=== PATIENT | female | born 1940 | race Caucasian/White ===

== ENCOUNTER → 2017-09-28 07:00 | Outpatient (CLI) | payer MEDICARE, OTHER, SELFPAY ==
--- NOTE | 2017-09-28 07:05 | HPBI_ITS ---
MAMMOGRAPHY - BILATERAL SCREENING REASON FOR EXAM: Female, 77 years old. Routine annual screening examination. PERTINENT HISTORY: Non-contributory. TECHNIQUE: Digital bilateral breast sedrick (3D mammographic acquisition) in the CC and MLO projections. 2-D mediolateral oblique (MLO) and craniocaudad (CC) views of both breasts were obtained. CAD: Full Field Digital Mammography with Computer Added Detection was performed. COMPARISON: Comparison is made with prior study dated September 07, 2016 and August 27, 2015. FINDINGS: Breast Composition: The breasts are heterogeneously dense, which may obscure small masses. There are no dominant masses or suspicious calcifications. No other significant abnormalities are identified. There has been no significant change since the prior study. HPBI/SCREENING MAMM (CAD), BILAT IMPRESSION: Stable bilateral screening mammogram. Yearly follow-up mammogram recommended. (A) ASSESSMENT CATEGORY: BIRADS Category 1: Negative. A letter regarding these results will be sent to the patient by the facility within 30 days. Approximately 10% of breast cancers are not detected by mammography. A normal mammogram should not delay biopsy of a clinically suspicious abnormality. [id number] Electronically Signed: Quoc Martins MD at 8:55 EDT Tel [phone], Service support ,
== END ==
PROVIDERS: Family Provider Family Medicine; PCP Family Medicine; Visit Provider Family Medicine
DX: Z12.31 Encounter for screening mammogram for malignant neoplasm of breast (principal)
CPT/HCPCS: 77063; 77067

== ENCOUNTER → 2018-02-27 07:28 | Outpatient (CLI) | payer MEDICARE, OTHER, SELFPAY ==
[2018-02-27 10:42] LABS: Absolute Lymphocyte Count 1.47 X10^3/ul (0.83-4.51); Absolute Neutrophil Count 2.1 X10^3/uL (2.0-7.7); Basophil# 0.03 X10^3/uL; Basophil% 0.7 % (0-1); Eosinophil# 0.31 X10^3/uL; Eosinophils% 7.1 % (0-5); Hematocrit 42.2 % (37-47); Hemoglobin 13.2 g/dl (12.0-15.0); Lymphocyte # 1.47 X10^3/ul (4.0); Lymphocyte % 33.6 % (19-41); Mean Corp Hgb Conc 31.3 g/gl (32-36); Mean Corpuscular Hgb 30.6 pg (27.0-32.0); Mean Corpuscular Volume 97.7 fL (81-99); Mean Platelet Vol. 10.7 fl (6.2-12.0); Monocyte# 0.44 X10^3/uL; Neutrophil # 2.12 X10^3/uL (2.7-7.7); Neutrophil % 48.4 % (47-70); Platelet Count 241 K/mm3 (150-450); RBC Distribution Width CV 12.8 % (11.6-14.6); RBC Distribution Width SD 45.6 fl (35.1-43.9); Red Blood Count 4.32 M/mm3 (4.2-5.4); White Blood Count 4.4 K/mm3 (4.4-11.0)
[2018-02-27 10:46] LABS: AST(SGOT) 27 U/L (15-37); Alanine Aminotransfer ALT/SGPT 23 U/L (13-56); Albumin, Serum 3.5 g/dL (3.2-5.0); Alkaline Phosphatase 58 U/L (45-117); Anion Gap 12 (5-15); BUN 20 mg/dL (7-18); BUN/Creat Ratio 21.6 RATIO (10-20); Chloride 107 mmol/L (98-107); Cholesterol 186 mg/dL (200); Creatinine, Serum 0.93 mg/dL (0.55-1.02); EST Glomerular Filtration Rate 63 mL/min (>60); Est Glom Filt Rate - Afr Amer 76 mL/min (>60); Ferritin 69 ng/mL (8-252); Globulin 3.5 g/dL (2.2-4.2); Glucose 78 mg/dL (74-106); High Density Lipoprotein 70 mg/dL; Iron 99 ug/dL (50-170); Potassium 3.9 mmol/L (3.5-5.1); Sodium Level 144 mmol/L (136-145); Triglycerides 63 mg/dL; Very Low Density Lipoprotein 13 mg/dL (5-40)
[2018-02-27 10:48] LABS: POSITIVE COUNT NO; POSITIVE DIFFERENTIAL NO; POSITIVE MORPHOLOGY NO
[2018-02-28 08:35] LABS: Vitamin B12 747 pg/mL (211-911); Vitamin D,25 Hydroxy 38.3 ng/mL (29.95-100.01)
== END ==
PROVIDERS: Family Provider Family Medicine; PCP Family Medicine; Visit Provider Family Medicine
DX: E78.5 Hyperlipidemia, unspecified (principal); M81.0 Age-related osteoporosis without current pathological fracture; R53.83 Other fatigue; E55.9 Vitamin D deficiency, unspecified; G25.81 Restless legs syndrome; D64.9 Anemia, unspecified
CPT/HCPCS: 36415; 80053; 80061; 82306; 82607; 82728; 83540; 85025

== ENCOUNTER → 2018-03-21 12:33 | Outpatient (CLI) | payer MEDICARE, OTHER, SELFPAY | PROVIDERS: Family Provider Family Medicine; PCP Family Medicine; Visit Provider Family Medicine | DX: M25.551 Pain in right hip (principal) | CPT/HCPCS: 73502 ==

== ENCOUNTER → 2018-09-14 15:54 | Outpatient (CLI) | payer MEDICARE, OTHER, SELFPAY ==
[2018-09-14 18:08] LABS: Ferritin 399 ng/mL (8-252)
[2018-09-14 18:48] LABS: Hemoglobin 10.7 g/dl (12.0-15.0); Mean Corp Hgb Conc 31.5 g/gl (32-36); Mean Corpuscular Hgb 30.9 pg (27.0-32.0); Mean Corpuscular Volume 98.3 fL (81-99); Platelet Count 435 K/mm3 (150-450); RBC Distribution Width CV 14.2 % (11.6-14.6); RBC Distribution Width SD 50.8 fl (35.1-43.9); Red Blood Count 3.46 M/mm3 (4.2-5.4); White Blood Count 10.5 K/mm3 (4.4-11.0)
[2018-09-14 18:49] LABS: Absolute Lymphocyte Count 2.07 X10^3/ul (0.83-4.51); Basophil# 0.04 X10^3/uL; Basophil% 0.4 % (0-1); Eosinophil# 0.18 X10^3/uL; Eosinophils% 1.7 % (0-5); Lymphocyte # 2.07 X10^3/ul (4.0); Lymphocyte % 19.8 % (19-41); Mean Platelet Vol. 9.5 fl (6.2-12.0); Monocyte# 1.18 X10^3/uL; Monocyte% 11.3 % (0-10); Neutrophil # 6.96 X10^3/uL (2.7-7.7); Neutrophil % 66.5 % (47-70); POSITIVE COUNT NO; POSITIVE DIFFERENTIAL NO; POSITIVE MORPHOLOGY NO
== END ==
PROVIDERS: Family Provider Family Medicine; PCP Family Medicine; Visit Provider Family Medicine
DX: D64.9 Anemia, unspecified (principal)
CPT/HCPCS: 36415; 82728; 85025

== ENCOUNTER → 2018-09-15 11:14 | Outpatient (CLI) | payer MEDICARE, OTHER, SELFPAY ==
[2018-09-15 12:31] LABS: Color, Urine Yellow (Yellow); Glucose, Dipstick Normal (Normal); Ketone-Dipstick 15 mg/dl (Negative); Leukocyte Esterase-Dipstick 500 /ul (Negative); Nitrite-Dipstick Positive (Negative); Occult Blood-Urine 150 /ul (Negative); Protein-Dipstick 30 mg/dl (Negative); Specific Gravity, Urine 1.025 (1.002-1.030); Urine Bilirubin Dipstick 1 mg/dL (Negative); Urine Clarity Clear (Clear); Urine Urobilinogen 4 mg/dl (Normal)
== END ==
PROVIDERS: Family Provider Family Medicine; PCP Family Medicine; Referring Provider Family Medicine; Visit Provider Family Medicine
DX: R50.9 Fever, unspecified (principal)
CPT/HCPCS: 81002; 87086; 87088

== ENCOUNTER → 2018-09-28 07:54 | Outpatient (CLI) | payer MEDICARE, OTHER, SELFPAY ==
[2018-09-28 09:05] LABS: Bacteria 0 SEEN /hpf (None Seen); Mucous, Urine 0 SEEN /hpf (<or=2+); Squamous Epithelial Cells - UA 0 SEEN /hpf (5-10)
[2018-09-28 13:24] LABS: Color, Urine Yellow (Yellow); Glucose, Dipstick Normal (Normal); Ketone-Dipstick Negative (Negative); Leukocyte Esterase-Dipstick 500 /ul (Negative); Nitrite-Dipstick Negative (Negative); Occult Blood-Urine 250 /ul (Negative); Protein-Dipstick Negative (Negative); Urine Bilirubin Dipstick Negative (Negative); Urine Clarity Clear (Clear); Urine Urobilinogen Normal (Normal)
[2018-09-28 13:34] LABS: Red Blood Cells-Urine 0-5 SEEN /hpf (0-5); White Blood Cells 5-10 SEEN /hpf (0-5)
== END ==
PROVIDERS: Family Provider Family Medicine; PCP Family Medicine; Visit Provider Family Medicine
DX: N39.0 Urinary tract infection, site not specified (principal)
CPT/HCPCS: 81001; 87086; 87088

== ENCOUNTER → 2019-08-02 09:49 | Outpatient (CLI) | payer MEDICARE, OTHER, SELFPAY ==
--- NOTE | 2019-08-02 09:55 | RAD_ITS ---
HISTORY: CHRONIC PAIN ADDITIONAL HISTORY: None provided. TECHNIQUE: Left knee 4 views Number of images including paperwork: 4 COMPARISON: 10/02/2012 FINDINGS: BONES: No acute fracture. JOINTS: No subluxation. Moderate to severe tricompartmental degenerative changes, increased compared to the prior study and most pronounced in the lateral compartment. Chondrocalcinosis. Moderate to large left knee joint effusion. SOFT TISSUES: No distinct foreign body. RAD/Knee 4 or More Views IMPRESSION: Degenerative changes without acute osseous abnormality. Left knee joint effusion. at 0028 Reported and signed by: Brenda Harris MD Electronically Signed: Brenda Harris MD at 0:27 EST Tel , Service support ,
--- NOTE | 2019-08-02 09:55 | RAD_ITS ---
HISTORY: CHRONIC PAIN ADDITIONAL HISTORY: None provided. TECHNIQUE: Right knee 4 views Number of images including paperwork: 4 COMPARISON: None FINDINGS: BONES: No acute fracture. JOINTS: No subluxation. Mild to moderate tricompartmental degenerative changes. Chondrocalcinosis. Small joint bodies. Small right knee joint effusion. SOFT TISSUES: No distinct foreign body. RAD/Knee 4 or More Views IMPRESSION: Degenerative changes without acute osseous abnormality. Small right knee joint effusion. at 0026 Reported and signed by: Brenda Harris MD Electronically Signed: Brenda Harris MD at 0:26 EST Tel , Service support ,
--- NOTE | 2019-08-02 09:55 | RAD_ITS ---
STUDY: X-RAY - PELVIS AND BILATERAL HIPS REASON FOR EXAM: Female, 79 years old. CHRONIC PAIN TECHNIQUE: AP view of the pelvis.? 2 views of the right hip, and 2 views of the left hip were obtained. COMPARISON: None. FINDINGS: There is a non-specific bowel gas pattern. Normal visualized soft tissue structures. Normal bilateral iliac wings, sacroiliac joints and visualized sacrum. Normal bilateral superior and inferior pubic rami. Normal pubic symphysis. Normal bilateral ischial tuberosities. There is diffuse concentric narrowing of both hip joints with mild spurring of the right femoral head. RAD/Hips B/L min 2 views w/ Pelvis IMPRESSION: Degenerative changes of both hips slightly worse on the right.. No evidence for acute hip or pelvic fracture Electronically Signed: Pepe Simental MD at 23:00 EST , Service support ,
== END ==
PROVIDERS: PCP Family Medicine; Referring Provider Family Medicine; Visit Provider Family Medicine
DX: M25.561 Pain in right knee (principal); M25.562 Pain in left knee; M25.551 Pain in right hip; M25.552 Pain in left hip
CPT/HCPCS: 73521; 73564

== ENCOUNTER → 2020-04-08 09:25 | Outpatient (CLI) | payer MEDICARE, OTHER, SELFPAY ==
--- NOTE | 2020-04-08 09:33 | BD_ITS ---
STUDY: DUAL ENERGY X-RAY ABSORPTIOMETRY / DXA REASON FOR EXAM: Female, 79 years old. 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 COMPARISON: Comparison is made with prior examination dated 12/06/2016. FINDINGS: Lumbar Spine (L1-L4): g/cm2 (0.926) / T-score (-2.3) / Z-score (-0.5) Findings are suggestive of osteopenia with a high fracture risk. Left Femur Total: g/cm2 (0.792) / T-score (-1.7) / Z-score (0.2) Left Femoral Neck: g/cm2 (0.846) / T-score (-1.4) / Z-score (0.7) Right Femur Total: g/cm2 (0.821) / T-score (-1.5) / Z-score (0.4) Right Femoral Neck: g/cm2 (0.857) / T-score (-1.3) / Z-score (0.7) The T-Scores on the most recent prior examination were: Lumbar Spine (L1-L4): There has been improvement of bone density since the previous examination. Left Femur Total: which represents a worsening of 3.3%. Right Femur Total: which represents an improvement of 2.4%. BD/Dexa Bone Density Study IMPRESSION: The patient is considered osteopenic as outlined below according to World [place] Organization (WHO) criteria with a high fracture risk. There has been improvement of bone density since the previous examination. Reference Information: The T-score is the number of standard deviations above or below the standard which is normal for young adults at their peak bone mineral density. The World Health Organization (WHO) interprets the T-scores as follows: Above -1 Normal bone density Between -1 and -2.5 Osteopenia Equal to / or below -2.5 Osteoporosis As a practical clinical guideline, osteopenia may be graded as follows: Mild -1 through -1.5 Moderate -1.6 through -2.0 Severe -2.1 through -2.4 The Z-score is the number of standard deviations above or below age-matched controls. A Z-score of less than -1.5 would be considered abnormal. References: 1. NIH Osteoporosis and Related Bone Diseases http://www.osteo.org 2. International Society for Clinical Densitometry http://www.iscd.org 3. National Osteoporosis Foundation http://www.nof.org Electronically Signed: Quoc Martins, at 14:50 EDT , Service support ,
== END ==
PROVIDERS: PCP Family Medicine; Referring Provider Family Medicine; Visit Provider Family Medicine
DX: M81.0 Age-related osteoporosis without current pathological fracture (principal)
CPT/HCPCS: 77080

== ENCOUNTER → 2020-04-17 09:53 | Outpatient (CLI) | payer MEDICARE, OTHER, SELFPAY ==
[2020-04-17 10:00] VITALS: BP 111/66; PULSE 71; RESP 16; TEMP 36.5; O2SAT 96
[2020-04-17] MEDS: DENOSUMAB 60 MG/ML SQ (10:08)
== END ==
PROVIDERS: PCP Family Medicine; Referring Provider Family Medicine; Visit Provider Family Medicine
DX: M81.0 Age-related osteoporosis without current pathological fracture (principal)
CPT/HCPCS: 96401; J0897

== ENCOUNTER → 2020-07-30 10:32 | Outpatient (CLI) | payer MEDICARE, OTHER, SELFPAY ==
--- NOTE | 2020-07-30 10:40 | RAD_ITS ---
STUDY: X-RAY CHEST REASON FOR EXAM: Female, 80 years old. cough x 2 years TECHNIQUE: PA and lateral COMPARISON: None. FINDINGS: Chronic interstitial and emphysematous changes are seen most pronounced in the lower lobes. There is a focal opacity in the right pulmonary apex possibly representing pulmonary nodule. There is no demonstrated pleural abnormality. Normal size heart. Normal mediastinum and kieran. Normal visualized pulmonary arteries. Normal visualized aortic arch and descending thoracic aorta. Dorsal spine demonstrates mild scoliosis and degenerative change.. Normal visualized ribs, and clavicles. There are degenerative changes of the shoulders. Postop change status post cervical fusion. There is no demonstrated abnormality of the visualized soft tissue structures of the upper abdomen. RAD/Chest PA and Lateral IMPRESSION: Chronic interstitial and emphysematous changes. Cannot exclude right upper lobe nodule. CT recommended for further evaluation Electronically Signed: Pepe Simental MD at 20:52 EST , Service support ,
== END ==
PROVIDERS: PCP Family Medicine; Visit Provider Otolaryngology
DX: R05 Cough (principal)
CPT/HCPCS: 71046

== ENCOUNTER → 2020-08-13 07:58 | Outpatient (CLI) | payer MEDICARE, OTHER, SELFPAY ==
[2020-08-03 14:24] VITALS: BMI 23.3
--- NOTE | 2020-08-13 08:00 | CT_ITS ---
STUDY: CT CHEST WITHOUT CONTRAST REASON FOR EXAM: Female, 80 years old. CHRONIC COUGH FOR YEARS, FOLLOW UP LUNG NODULE FOUND ON CHEST XRAY 07/30/20 RADIATION DOSAGE (If Supplied By Facility): CTDIvol = ( 6.59 ) mGy, DLP = ( 252.06 ) mGycm TECHNIQUE: Transaxial imaging was performed without the administration of intravenous contrast material. Multiplanar coronal and sagittal images were reformatted. Individualized dose optimization techniques were used for this CT. COMPARISON: None. FINDINGS: Emphysematous changes. There is a 2.5 cm x 1.4 cm heterogeneous irregular nodule in the anterior aspect of the right lung apex. This corresponds to the radiographic findings. Mild degree of increased markings at the lung bases as well as in the anterior aspect of the right middle lobe suggestive of scarring. There is no demonstrated pleural abnormality. There are calcifications of the coronary arteries. There are multiple small lymph nodes within the mediastinum, which are normal in size and morphology most compatible with reactive lymph hyperplasia. Normal hilar regions. Normal unenhanced pulmonary arteries. Normal aorta arch and descending thoracic aorta. There are multi-level degenerative changes of the thoracic spine. There is no demonstrated abnormality of the visualized upper abdomen. CT/Chest without Contrast IMPRESSION: 2.5 cm x 1.4 cm heterogeneous irregular nodular density in the anterior aspect of the right lung apex. Neoplastic process should be ruled. Electronically Signed: Quoc Martins MD at 9:14 EST , Service support ,
--- NOTE | 2020-08-13 12:42 | PFT ---
INTRODUCTION: The patient is a 80-year-old female that presents for pulmonary function studies secondary to a diagnosis of chronic cough. Respiratory therapy reports good patient effort. Bronchodilators were used during testing. INTERPRETATION: Forced expiration spirometry demonstrates no evidence of a large airways obstructive ventilatory defect. There was no significant response to aerosolized bronchodilators, based upon strict ATS criteria. Spirograms are of good quality and plateau normally. Body plethysmography was performed and reveals lung volumes to be within normal limits. Diffusing capacity by single breath CO is reduced to 67% of predicted. IMPRESSION: Isolated mild reduction in diffusing capacity. Normal spirometry and lung volumes.
== END ==
PROVIDERS: PCP Family Medicine; Visit Provider Internal Medicine Critical Care Medicine
DX: R05 Cough (principal)
CPT/HCPCS: 71250; 94060; 94726; 94729

== ENCOUNTER → 2020-08-18 13:16 | Outpatient (CLI) | payer MEDICARE, OTHER, SELFPAY ==
[2020-08-18 12:43] VITALS: BMI 23.3
[2020-08-18 13:58] LABS: Platelet Count 255 K/mm3 (150-450)
[2020-08-18 14:11] LABS: Partial Thromboplast Time 28.6 Seconds (24.1-36.2); Prothrombin Time (Protime)PT. 12.6 SECONDS (11.7-14.9)
[2020-08-18 21:45] LABS: Xtra Tube EP Lab EXTRA TUBE
== END ==
PROVIDERS: PCP Family Medicine; Referring Provider Nurse Practitioner Acute Care; Visit Provider Nurse Practitioner Acute Care
DX: M81.0 Age-related osteoporosis without current pathological fracture (principal); R91.8 Other nonspecific abnormal finding of lung field; R06.02 Shortness of breath
CPT/HCPCS: 36415; 85049; 85610; 85730

== ENCOUNTER → 2020-08-26 08:04 | Outpatient (CLI) | payer MEDICARE, OTHER, SELFPAY ==
[2020-08-18 12:43] VITALS: BMI 23.3
[2020-08-26] VITALS (13 sets, daily range): BP systolic 95–116; BP diastolic 65–82; PULSE 65–78; RESP 11–17; TEMP 36.9; O2SAT 95–99; BMI 23.3
--- NOTE | 2020-08-26 08:05 | CT_ITS ---
PROCEDURE: CT GUIDED CORE NEEDLE BIOPSY OF A right apical LUNG LESION INDICATION: Female, 80 years old. RIGHT LUNG BIOPSY PHYSICIAN: Dr. WON Mahoney CONSENT: Written informed consent was obtained having explained the risks, benefits and alternatives in detail with the patient who accepted the risks and agreed to proceed. Laboratory review and clinical assessment was performed. CONSCIOUS SEDATION PROTOCOL: The Drugs used were: 1 mg Versed, IV., and 50 mcg Fentanyl, IV. The sedation time was: 24minutes. Conscious sedation was started at 9:11 AM and terminated at 9:30 5A. The conscious sedation protocol was independently monitored. RADIATION DOSAGE (If Supplied By Facility): CTDIvol = ( 16.67 ) mGy, DLP = ( 538.68 ) mGycm Individualized dose optimization techniques were used for this CT. TECHNIQUE: The patient was placed in the supine position. A noncontrast CT was performed to localize the lesion in the right lung apex . The skin surface was prepped and draped in a sterile fashion. 1% lidocaine was used for local anesthesia. Using CT guidance, a 20-gauge coaxial biopsy device was advanced to the periphery of the lesion. A total of 3 core specimens were obtained. The specimens were placed in a formalin solution. A post procedure CT demonstrated no adverse sequelae or pneumothorax. The patient tolerated the procedure well without adverse event. A negative biopsy does not exclude malignancy. Further imaging or clinical followup based on patient condition and degree of clinical suspicion for malignancy. Suggest rebiopsy, if biopsy results do not match with clinical scenario. CT/Biopsy/Inj or Needle Placement IMPRESSION: 1. CT directed core needle biopsy of the right apical nodular lesion using CT image guidance with image documentation as described. Pathology results are pending. 2. Conscious Sedation protocol utilized with independent monitoring. Electronically Signed: Quoc Martins MD at 9:54 EST , Service support ,
--- NOTE | 2020-08-26 09:00 | RAD_ITS ---
STUDY: X-RAY CHEST REASON FOR EXAM: Female, 80 years old. IMMEDIATE POST LUNG BX, RT APEX. INSPR/EXPR VWS TECHNIQUE: AP inspiration and expiration views. COMPARISON: Comparison is made with prior examination dated 01/27/2021. FINDINGS: Immediate post right lung biopsy radiographs. No evidence of pneumothorax. RAD/Chest Insp/Exp 2 View IMPRESSION: No evidence of pneumothorax on the immediate post right lung biopsy radiographs. Electronically Signed: Quoc Martins MD at 14:43 EST , Service support ,
[2020-08-26] MEDS: fentaNYL 100 MCG/2 ML Ampul IV (09:10)
[2020-08-26] MEDS: Midazolam 2 MG/2 ML Syringe IV (09:11)
[2020-08-26] MEDS: 0.9% Saline Lock 10 ML Syringe IV (09:14)
--- NOTE | 2020-08-26 09:30 | ASPIGT_PTH ---
PATIENT: MARGIE FULTON LOC: CT U#:[id number] AGE/SX: 85/F ROOM: RE08/26/[address]: ZACKARY Valenzuela : 1940 BED: DIS: SPEC #: [id number] RECD: 08/26/20 10:00 STATUS: GRADY ALICE #: [id number] SUNNY: 08/26/20 09:[address]: Abril Connors NP DEPT: SURGICAL PATHOLOGY RECD BY: Laura Philip ENTERED: 08/26/20 13:33 SP TYPE: ASP RAD OTHR DR: Dr. Danielle Paige DO Tissues: Lung, NOS Procedures: FNA Specimen Adequacy Special Stain Group II Surgery Specimen Level IV Imprint (control) HEADER OPERATION: CT-guided right lung biopsy PRE-OP DIAGNOSIS: Right lung lesion TISSUE SUBMITTED: Right lung lesion MICROSCOPIC DIAGNOSIS Right lung lesion, CT-guided core biopsy: Negative for malignant cells. See comment. PONCE:kayleen 08/27/2020 COMMENT The specimen is evaluated at the time of biopsy by Dr. Harrington. Immediate Evaluation = Negative for malignant cells. Grossly, the specimen consists of scant minute fragment of tissue and did not survive processing. Smears are negative for malignant cells. Correlation with clinical, radiologic findings and appropriate follow up are necessary. Re-biopsy is suggested if clinically indicated. Case has been reviewed in consultation with Dr. Munoz who concurs with the above diagnosis. IDC:AM MICROSCOPIC DESCRIPTION Slides are reviewed. GROSS DESCRIPTION Received in fixative is one container labeled with the patient's name and designated right lung, CT-guided biopsy. The specimen consists of a minute fragment of light mayes soft tissue measuring 0.2 x <0.1 x <0.1. The specimen is submitted in its entirety in one cassette. / AM:kayleen 08/26/20 TC:5 CPT: 93107, 40704
--- NOTE | 2020-08-26 11:50 | RAD_ITS ---
STUDY: X-RAY CHEST REASON FOR EXAM: Female, 80 years old. 2 hours post biopsy, right apex TECHNIQUE: AP inspiration and expiration views. COMPARISON: Comparison is made with prior radiographs done earlier today. FINDINGS: No evidence of pneumothorax on the 2 hour post right lung biopsy. RAD/Chest Insp/Exp 2 View IMPRESSION: No evidence of pneumothorax on the delayed post right lung biopsy radiographs. Electronically Signed: Quoc Martins MD at 12:26 EST , Service support ,
== END ==
PROVIDERS: PCP Family Medicine; Referring Provider Nurse Practitioner Acute Care; Visit Provider Nurse Practitioner Acute Care
DX: R91.1 Solitary pulmonary nodule (principal)
CPT/HCPCS: 32408; 71046; 77012; 88172; 88305; 88313; 99155; 99156; J7040; A4216; C2613

== ENCOUNTER → 2020-08-27 10:53 | Outpatient (CLI) | payer MEDICARE, OTHER, SELFPAY ==
[2020-08-26 08:12] VITALS: BMI 23.3
[2020-08-27 12:42] LABS: Erythrocyte Sedimentation Rate 20 mm/hr (0-30)
[2020-08-27 12:53] LABS: Absolute Lymphocyte Count 1.28 X10^3/uL (0.83-4.51); Absolute Neutrophil Count 3.5 X10^3/uL (2.0-7.7); Basophil# 0.03 X10^3/uL; Basophil% 0.6 % (0-1); Eosinophil# 0.14 X10^3/uL; Eosinophils% 2.6 % (0-5); Hematocrit 39.4 % (37-47); Hemoglobin 12.7 g/dL (12.0-15.0); Lymphocyte # 1.28 X10^3/ul (4.0); Lymphocyte % 23.6 % (19-41); Mean Corp Hgb Conc 32.2 g/dL (32-36); Mean Corpuscular Hgb 30.9 pg (27.0-32.0); Mean Corpuscular Volume 95.9 fL (81-99); Mean Platelet Vol. 10.9 fl (6.2-12.0); Monocyte# 0.46 X10^3/uL; Monocyte% 8.5 % (0-10); NRBC Flagged by Analyzer 0 % (0-5); Neutrophil # 3.51 X10^3/uL (2.7-7.7); Neutrophil % 64.5 % (47-70); Platelet Count 227 K/mm3 (150-450); RBC Distribution Width CV 13.8 % (11.6-14.6); RBC Distribution Width SD 49.3 fl (35.1-43.9); Red Blood Count 4.11 M/mm3 (4.2-5.4); White Blood Count 5.4 K/mm3 (4.4-11.0)
[2020-08-27 13:13] LABS: AST(SGOT) 23 U/L (15-37); Alanine Aminotransfer ALT/SGPT 17 U/L (13-56); Albumin, Serum 3.4 g/dL (3.2-5.0); Alkaline Phosphatase 67 U/L (45-117); Anion Gap 6 (5-15); BUN 19 mg/dL (7-18); Calcium,Total 8.9 mg/dL (8.5-10.1); Chloride 108 mmol/L (98-107); Creatinine, Serum 0.68 mg/dL (0.55-1.02); EST Glomerular Filtration Rate 89 mL/min (>60); Est Glom Filt Rate - Afr Amer 108 mL/min (>60); Globulin 3.3 g/dL (2.2-4.2); Glucose 78 mg/dL (74-106); Potassium 4.3 mmol/L (3.5-5.1); Protein, Total 6.7 g/dL (6.4-8.2); Sodium Level 140 mmol/L (136-145)
== END ==
PROVIDERS: PCP Family Medicine; Visit Provider Family Medicine
DX: M25.50 Pain in unspecified joint (principal)
CPT/HCPCS: 36415; 80053; 85025; 85652; 86140

== ENCOUNTER → 2020-09-01 13:20 | Outpatient (CLI) | payer MEDICARE, OTHER, SELFPAY ==
[2020-08-26 08:12] VITALS: BMI 23.3
[2020-09-01 16:06] LABS: CRP 8.46 mg/L (0.0-3.0)
[2020-09-01 16:19] LABS: Erythrocyte Sedimentation Rate 15 mm/hr (0-30)
== END ==
PROVIDERS: PCP Family Medicine; Visit Provider Family Medicine
DX: M19.90 Unspecified osteoarthritis, unspecified site (principal); M25.50 Pain in unspecified joint
CPT/HCPCS: 36415; 85652; 86140

== ENCOUNTER → 2020-10-06 16:21 | Outpatient (CLI) | payer MEDICARE, OTHER, SELFPAY ==
[2020-08-26 08:12] VITALS: BMI 23.3
--- NOTE | 2020-10-06 16:30 | PET_ITS ---
EXAMINATION: FDG PET/CT INDICATIONS: A 80-year-old female with history of pulmonary nodularity. COMPARISON EXAMINATION: CT of the chest report dated 08/13/20 INDEX LESION SIZE SUV INTERPRETATION Right upper lung-right upper lobe 20.1-mm (frame 202) 2.9 Fulfills quantitative criteria for viable neoplasm TECHNIQUE: Following the intravenous administration of 13.89 mCi of F-18 deoxyglucose via the left antecubital fossa, multiplanar image acquisitions of the neck, chest, abdomen and pelvis to level of mid thigh, obtained at one hour post radiopharmaceutical administration contemporaneously interpreted with the current CT of the neck, chest, abdomen and pelvis to level of mid thigh, dated 10/06/[address] of the chest report dated 08/13/20 reveal: SERUM GLUCOSE LEVEL: 77 mg/dl. HEIGHT: 65 inches. WEIGHT: 140 lbs. FINDINGS: 1. Focal increased FDG concentration is observed in the right upper anterior lung-right upper lobe generating a calculated maximal standard uptake value of 2.9. The maximal axial diameter of the corresponding parenchymal density on review of CT of the chest dated 10/06/20 is 20.1-mm (AP). 2. Normal physiologic distribution of the radiopharmaceutical is apparent in the hepatic (2.6) and splenic parenchyma, both renal units, bladder and visualized intestinal tract. The visualized portion of the cerebral cortex demonstrate symmetric and preserved glucose metabolism. Diffuse gastrointestinal tract distribution of the radiopharmaceutical is defined. Facilitated tracer uptake is defined in the left ventricular myocardium commensurate with the [place]. Pertinent CT findings are as follows: CHEST: There is atherosclerotic calcification defined in the thoracic aorta without evidence of dilatation-aneurysm formation. Coronary arterial calcification is observed. Bilateral axillary soft tissue densities with fatty hilus are ametabolic. There are no additional parenchymal densities-nodules defined in the right and left hemithorax with discernible increased FDG concentration. ABDOMEN AND PELVIS: There is atherosclerotic calcification defined in the abdominal aorta without evidence of dilatation-aneurysm formation. Pelvic arterial calcification is observed. Bilateral inguinal soft tissue with fatty hilus is ametabolic. Calcification is noted in the region of the left adnexa without evidence of increased tracer uptake. Colonic diverticulosis is noted without evidence of diverticulitis. SKELETAL: Degenerative changes are noted in the cervical, thoracic and lumbar spine without evidence of increased radiopharmaceutical concentration. Orthopedic hardware placement is defined in the mid-lower cervical spine commensurate with spinal fusion operative intervention. There is diffuse demineralization identified throughout the axial skeletal structures. PET/PET/CT Tumor Base -Thigh Init IMPRESSION: 1. The increase in FDG uptake observed in the right upper anterior lung field-right upper lobe fulfills quantitative criteria for viable neoplasm. Histopathologic analysis is recommended. (Hardwick et al, Annals of Internal Medicine, 138:724, 2003). 2. No other quantitatively significant hypermetabolic abnormalities are noted. There is no definitive scintigraphic evidence of distant metastatic disease. Electronic Signature Geovany Pina D.O. Accurate Quantification of SUVs for this report are calculated using the exclusive [employer]? Technology.??Exclusive [place]. Patent [employer]? Technology (U.S. Patent No. [id number]). Electronically Signed: Geovany Pina DO at 21:59 EDT Tel , Service support ,
== END ==
PROVIDERS: PCP Family Medicine; Referring Provider Internal Medicine Critical Care Medicine; Visit Provider Internal Medicine Critical Care Medicine
DX: R91.1 Solitary pulmonary nodule (principal)
CPT/HCPCS: 78815; A9552

== ENCOUNTER → 2020-10-16 09:50 | Outpatient (CLI) | payer MEDICARE, OTHER, SELFPAY ==
[2020-10-09 13:39] VITALS: BMI 23.5
[2020-10-16 10:08] VITALS: BP 111/69; PULSE 68; RESP 16; TEMP 36.8; O2SAT 97; BMI 23.3
[2020-10-16] MEDS: DENOSUMAB 60 MG/ML SC (10:13)
== END ==
PROVIDERS: PCP Family Medicine; Referring Provider Family Medicine; Visit Provider Family Medicine
DX: M81.0 Age-related osteoporosis without current pathological fracture (principal)
CPT/HCPCS: 96372; J0897

== ENCOUNTER → 2021-03-17 14:49 | Outpatient (CLI) | payer MEDICARE, OTHER, SELFPAY | PROVIDERS: PCP Family Medicine; Visit Provider Family Medicine | DX: Z20.828 Contact with and (suspected) exposure to other viral communicable diseases (principal) | CPT/HCPCS: 87635; U0005; U0003 ==

== ENCOUNTER → 2021-04-23 09:46 | Outpatient (CLI) | payer MEDICARE, OTHER, SELFPAY ==
[2021-04-23 09:51] VITALS: BP 107/63; PULSE 71; RESP 16; TEMP 36.2; O2SAT 98; BMI 23.3
[2021-04-23] MEDS: DENOSUMAB 60 MG/ML SC (09:55)
== END ==
PROVIDERS: PCP Family Medicine; Referring Provider Family Medicine; Visit Provider Family Medicine
DX: M81.0 Age-related osteoporosis without current pathological fracture (principal)
CPT/HCPCS: 96372; J0897

== ENCOUNTER → 2021-05-07 12:49 | Outpatient (CLI) | payer MEDICARE, OTHER, SELFPAY ==
--- NOTE | 2021-05-07 12:55 | CT_ITS ---
STUDY: CT CHEST WITHOUT CONTRAST REASON FOR EXAM: Female, 80 years old. 6 month follow-up after lung resection RADIATION DOSAGE (If Supplied By Facility): CTDIvol = ( 6.38 ) mGy, DLP = ( 223.30 ) mGycm TECHNIQUE: Transaxial imaging was performed without the administration of intravenous contrast material. Individualized dose optimization techniques were used for this CT. COMPARISON: 06 October 2020 FINDINGS: Lungs are moderately emphysematous. There is right upper lobectomy. There is mild scarring along the major fissure and suture line extending to the hilum. There is no residual or recurrent mass or lesion. There is mild peripheral subpleural fibrosis. Central airways are patent. Pleural surfaces are intact. Mediastinal contents are normal. Corneae arteries are severely diseased. Adrenals are normal. Osseous structures are intact. There is cervical ACDF. CT/Chest without Contrast IMPRESSION: 1. Expected appearance after right upper lobectomy. 2. No residual/recurrent lung disease. 3. Emphysema and mild related fibrosis. 4. Severe coronary artery disease. Electronically Signed: Jay Velasco MD at 16:58 EDT Tel , Service support ,
== END ==
PROVIDERS: PCP Family Medicine; Referring Provider Nurse Practitioner Acute Care; Visit Provider Nurse Practitioner Acute Care
DX: R91.1 Solitary pulmonary nodule (principal)
CPT/HCPCS: 71250

== ENCOUNTER 2021-10-22 09:47 | Outpatient (CLI) | payer MEDICARE, OTHER, SELFPAY ==
[2021-10-22 09:54] VITALS: BP 110/66; PULSE 76; RESP 16; TEMP 35.7; O2SAT 98
[2021-10-22] MEDS: DENOSUMAB 60 MG/ML SC (09:56)
== END 2021-10-22 23:59 | disposition home or self-care (01) ==
LOC: MEDOUTP 09:48
PROVIDERS: PCP Family Medicine; Referring Provider Family Medicine; Visit Provider Family Medicine
DX: M81.0 Age-related osteoporosis without current pathological fracture (principal)
CPT/HCPCS: 96372; J0897

== ENCOUNTER → 2022-04-22 | Outpatient (CLI) | payer MEDICARE, OTHER, SELFPAY ==
[2022-04-22 10:02] VITALS: BP 113/68; PULSE 76; RESP 16; TEMP 36.6; O2SAT 96; BMI 23.3
[2022-04-22] MEDS: DENOSUMAB 60 MG/ML SC (10:14)
== END | disposition home or self-care (01) ==
LOC: MEDOUTP 09:56
PROVIDERS: PCP Family Medicine; Referring Provider Family Medicine; Visit Provider Family Medicine
DX: M81.0 Age-related osteoporosis without current pathological fracture (principal)
CPT/HCPCS: 96372; J0897

== ENCOUNTER → 2022-08-24 | Outpatient (CLI) | payer MEDICARE, OTHER, SELFPAY ==
[2022-08-24 14:55] LABS: Absolute Lymphocyte Count 1.59 X10^3/uL (0.83-4.51); Absolute Neutrophil Count 5.2 X10^3/uL (2.0-7.7); Basophil# 0.04 X10^3/uL; Basophil% 0.5 % (0-1); Eosinophil# 0.43 X10^3/uL; Eosinophils% 5.5 % (0-5); Hematocrit 39.7 % (37-47); Hemoglobin 12.3 g/dL (12.0-15.0); Lymphocyte # 1.59 X10^3/ul (0.83-4.51); Lymphocyte % 20.5 % (19-41); Mean Corpuscular Hgb 30.4 pg (27.0-32.0); Mean Platelet Vol. 10.3 fl (6.2-12.0); Monocyte# 0.52 X10^3/uL; Monocyte% 6.7 % (0-10); NRBC Flagged by Analyzer 0 % (0-5); Neutrophil # 5.15 X10^3/uL (2.7-7.7); Neutrophil % 66.5 % (47-70); Platelet Count 296 K/mm3 (150-450); RBC Distribution Width CV 13.7 % (11.6-14.6); RBC Distribution Width SD 49.8 fl (35.1-43.9); Red Blood Count 4.05 M/mm3 (4.2-5.4); White Blood Count 7.8 K/mm3 (4.4-11.0)
[2022-08-24 15:26] LABS: BNP,B-Type NATRIURETIC PEPTIDE 53.8 pg/mL (0-100)
[2022-08-24 15:33] LABS: ALB/GLOB Ratio 0.8 RATIO (0.9-2.4); AST(SGOT) 19 U/L (15-37); Alanine Aminotransfer ALT/SGPT 22 U/L (13-56); Albumin, Serum 3.3 g/dL (3.2-5.0); Alkaline Phosphatase 64 U/L (45-117); Anion Gap 6 (5-15); BUN 22 mg/dL (7-18); BUN/Creat Ratio 28.6 RATIO (10-20); Calcium,Total 8.6 mg/dL (8.5-10.1); Chloride 106 mmol/L (98-107); Creatinine, Serum 0.77 mg/dL (0.55-1.02); EST Glomerular Filtration Rate 77 mL/min (>60); Est Glom Filt Rate - Afr Amer 93 mL/min (>60); Globulin 4.1 g/dL (2.2-4.2); Glucose 97 mg/dL (74-106); Potassium 4.4 mmol/L (3.5-5.1); Protein, Total 7.4 g/dL (6.4-8.2); Sodium Level 139 mmol/L (136-145); Troponin-I HS 4 pg/mL (3.0-54.0)
--- NOTE | 2022-08-24 16:05 | RAD_ITS ---
INDICATION: COUGH EXAMINATION/TECHNIQUE: X-RAY - XR Chest 2 Views COMPARISON: 08/26/2020. FINDINGS: Slight increase in interstitial markings. Chronic interstitial lung changes. Emphysematous changes. Tortuous and calcified thoracic aorta. The heart is not enlarged. No pleural effusion or pneumothorax. Degenerative changes of the thoracic spine. RAD/Chest PA and Lateral IMPRESSION: Slight increase in interstitial markings may represent edema and/or infection. Chronic lung changes. Electronically Signed: Wei Ibarra MD at 17:59 EST ,
[2022-08-24 21:45] LABS: Xtra Tube EP Lab EXTRA TUBE
== END | disposition home or self-care (01) ==
PROVIDERS: PCP Family Medicine; Visit Provider Family Medicine
DX: R05.9 Cough, unspecified (principal); R06.00 Dyspnea, unspecified; R07.9 Chest pain, unspecified; Z85.118 Personal history of other malignant neoplasm of bronchus and lung
CPT/HCPCS: 36415; 71046; 80053; 83880; 84484; 85025; 86141

== ENCOUNTER → 2022-09-28 | Outpatient (CLI) | payer MEDICARE, OTHER, SELFPAY | END | disposition home or self-care (01) | PROVIDERS: PCP Family Medicine; Referring Provider Family Medicine; Visit Provider Family Medicine | DX: N39.0 Urinary tract infection, site not specified (principal) | CPT/HCPCS: 87077; 87086; 87088; 87186 ==

== ENCOUNTER → 2022-10-21 | Outpatient (CLI) | payer MEDICARE, OTHER, SELFPAY ==
[2022-10-21 10:46] VITALS: BP 112/68; PULSE 69; RESP 16; TEMP 36.3; O2SAT 96; BMI 23.3
[2022-10-21] MEDS: DENOSUMAB 60 MG/ML SC (10:48)
== END | disposition home or self-care (01) ==
LOC: MEDOUTP 10:40
PROVIDERS: PCP Family Medicine; Referring Provider Family Medicine; Visit Provider Family Medicine
DX: M81.0 Age-related osteoporosis without current pathological fracture (principal)
CPT/HCPCS: 96372; J0897

== ENCOUNTER → 2023-01-26 | Outpatient (CLI) | payer MEDICARE, OTHER, SELFPAY ==
[2023-01-26 12:33] LABS: Absolute Lymphocyte Count 1.25 X10^3/uL (0.83-4.51); Absolute Neutrophil Count 4.8 X10^3/uL (2.0-7.7); Basophil# 0.04 X10^3/uL; Basophil% 0.6 % (0-1); Eosinophil# 0.29 X10^3/uL; Eosinophils% 4.1 % (0-5); Hematocrit 35.8 % (37-47); Hemoglobin 11.4 g/dL (12.0-15.0); Lymphocyte # 1.25 X10^3/ul (0.83-4.51); Lymphocyte % 17.7 % (19-41); Mean Corp Hgb Conc 31.8 g/dL (32-36); Mean Corpuscular Hgb 32.1 pg (27.0-32.0); Mean Corpuscular Volume 100.8 fL (81-99); Mean Platelet Vol. 9.2 fl (6.2-12.0); Monocyte% 8.5 % (0-10); NRBC Flagged by Analyzer 0 % (0-5); Neutrophil # 4.84 X10^3/uL (2.7-7.7); Neutrophil % 68.7 % (47-70); Platelet Count 323 K/mm3 (150-450); RBC Distribution Width CV 14.1 % (11.6-14.6); RBC Distribution Width SD 53.2 fl (35.1-43.9); Red Blood Count 3.55 M/mm3 (4.2-5.4); White Blood Count 7.1 K/mm3 (4.4-11.0)
[2023-01-26 13:29] LABS: AST(SGOT) 44 U/L (15-37); Alanine Aminotransfer ALT/SGPT 44 U/L (13-56); Albumin, Serum 3.5 g/dL (3.2-5.0); Alkaline Phosphatase 55 U/L (45-117); Anion Gap 8 (5-15); BUN 23 mg/dL (7-18); BUN/Creat Ratio 21.3 RATIO (10-20); Chloride 106 mmol/L (98-107); Creatinine, Serum 1.08 mg/dL (0.55-1.02); EST Glomerular Filtration Rate 52 mL/min (>60); Est Glom Filt Rate - Afr Amer 63 mL/min (>60); Free T3 1.7 pg/mL (2.18-3.98); Globulin 3.4 g/dL (2.2-4.2); Glucose 87 mg/dL (74-106); Iron 60 ug/dL (50-170); Magnesium 2.2 mg/dL (1.6-2.6); Protein, Total 6.9 g/dL (6.4-8.2); Sodium Level 138 mmol/L (136-145); T4 Free Direct 1.09 ng/dL (0.76-1.46); Thyroid Stim Hormone (TSH) 2.53 uIU/mL (0.358-3.74)
[2023-01-26 13:37] LABS: Vitamin B12 586 pg/mL (211-911)
== END | disposition home or self-care (01) ==
LOC: BFHLAB 10:32
PROVIDERS: PCP Family Medicine; Referring Provider Family Medicine; Visit Provider Family Medicine
DX: M62.838 Other muscle spasm (principal); R53.83 Other fatigue
CPT/HCPCS: 36415; 80053; 82607; 83540; 83735; 84439; 84443; 84481; 85025

== ENCOUNTER → 2023-03-10 | Outpatient (CLI) | payer MEDICARE, OTHER, SELFPAY ==
[2023-03-10 12:01] LABS: Absolute Lymphocyte Count 1.37 X10^3/uL (0.83-4.51); Absolute Neutrophil Count 3.4 X10^3/uL (2.0-7.7); Basophil# 0.05 X10^3/uL; Basophil% 0.9 % (0-1); Eosinophil# 0.29 X10^3/uL; Eosinophils% 5.1 % (0-5); Hematocrit 36.6 % (37-47); Hemoglobin 11.5 g/dL (12.0-15.0); Lymphocyte # 1.37 X10^3/ul (0.83-4.51); Lymphocyte % 24.1 % (19-41); Mean Corp Hgb Conc 31.4 g/dL (32-36); Mean Corpuscular Hgb 31.5 pg (27.0-32.0); Mean Corpuscular Volume 100.3 fL (81-99); Mean Platelet Vol. 9.1 fl (6.2-12.0); Monocyte# 0.51 X10^3/uL; NRBC Flagged by Analyzer 0 % (0-5); Neutrophil # 3.44 X10^3/uL (2.7-7.7); Neutrophil % 60.4 % (47-70); Platelet Count 289 K/mm3 (150-450); RBC Distribution Width CV 13.6 % (11.6-14.6); RBC Distribution Width SD 50.1 fl (35.1-43.9); Red Blood Count 3.65 M/mm3 (4.2-5.4); White Blood Count 5.7 K/mm3 (4.4-11.0)
[2023-03-10 12:29] LABS: Vitamin B12 1747 pg/mL (211-911)
[2023-03-10 12:50] LABS: ALB/GLOB Ratio 1.2 RATIO (0.9-2.4); AST(SGOT) 49 U/L (15-37); Alanine Aminotransfer ALT/SGPT 46 U/L (13-56); Albumin, Serum 3.6 g/dL (3.2-5.0); Alkaline Phosphatase 58 U/L (45-117); Anion Gap 8 (5-15); BUN 21 mg/dL (7-18); Chloride 105 mmol/L (98-107); EST Glomerular Filtration Rate 57 mL/min (>60); Est Glom Filt Rate - Afr Amer 69 mL/min (>60); Free T3 1.7 pg/mL (2.18-3.98); Glucose 82 mg/dL (74-106); Potassium 4.2 mmol/L (3.5-5.1); Protein, Total 6.6 g/dL (6.4-8.2); Sodium Level 139 mmol/L (136-145); T4 Free Direct 1.14 ng/dL (0.76-1.46); Thyroid Stim Hormone (TSH) 2.78 uIU/mL (0.358-3.74)
== END | disposition home or self-care (01) ==
LOC: LAB 11:35
PROVIDERS: PCP Family Medicine; Referring Provider Family Medicine; Visit Provider Family Medicine
DX: E53.8 Deficiency of other specified B group vitamins (principal); R94.6 Abnormal results of thyroid function studies; Z51.81 Encounter for therapeutic drug level monitoring; M62.838 Other muscle spasm
CPT/HCPCS: 36415; 80053; 82607; 84439; 84443; 84481; 85025

== ENCOUNTER → 2023-04-19 | Outpatient (CLI) | payer MEDICARE, OTHER, SELFPAY ==
--- NOTE | 2023-04-19 15:18 | NEURO ---
NCS and/or EMG Patient Report Ordering Doctor: Danielle Paige DATE OF SERVICE: 04/19/23 Jyoti presents for electrodiagnostic testing of the lower limbs. She reports history of numbness and tingling in the anterior and lateral aspect of the lower legs bilaterally. Electrodiagnostic findings: Peroneal motor nerve demonstrates normal distal latency, amplitude and conduction velocity bilaterally. Normal tibial motor response bilaterally. Normal peroneal and tibial F?waves. H reflex is prolonged bilaterally. Absent left superficial peroneal response. Prolonged sural latency is noted bilaterally. Needle EMG testing was performed in the lower limbs. All muscles tested showed no evidence of denervation with normal motor unit action potentials. Electrodiagnostic impression: This is an abnormal study in the lower limbs 1. Electrodiagnostic findings suggestive of peripheral polyneuropathy, primarily affecting sensory nerves. Etiology of this condition is not known. 2. No electrodiagnostic evidence is noted for lumbosacral radiculopathy. Multi Select Codes Neurology Neurology Interp Codes: 30146-78 Musc test done w/n test comp (interp) (2) and 83805-66 Nrv cndj test 9-10 studies (interp)
== END | disposition home or self-care (01) ==
LOC: PSN 08:19
PROVIDERS: PCP Family Medicine; Referring Provider Family Medicine; Visit Provider Family Medicine
DX: M62.838 Other muscle spasm (principal); R20.2 Paresthesia of skin; M79.604 Pain in right leg; M79.605 Pain in left leg
CPT/HCPCS: 95886; 95911

== ENCOUNTER 2023-04-21 11:04 | Outpatient (CLI) | payer MEDICARE, OTHER, SELFPAY ==
[2023-04-21 11:09] VITALS: BP 113/70; PULSE 73; RESP 16; TEMP 36.6; O2SAT 98; BMI 23.3
[2023-04-21] MEDS: DENOSUMAB 60 MG/ML SC (11:14)
== END 2023-04-21 11:05 | disposition home or self-care (01) ==
PROVIDERS: PCP Family Medicine; Referring Provider Family Medicine; Visit Provider Family Medicine
DX: M81.0 Age-related osteoporosis without current pathological fracture (principal)
CPT/HCPCS: 96372; J0897

== ENCOUNTER → 2023-05-05 | Outpatient (CLI) | payer MEDICARE, OTHER, SELFPAY ==
[2023-05-05 12:23] LABS: Absolute Lymphocyte Count 1.55 X10^3/uL (0.83-4.51); Absolute Neutrophil Count 3.5 X10^3/uL (2.0-7.7); Basophil# 0.05 X10^3/uL; Basophil% 0.8 % (0-1); Eosinophil# 0.21 X10^3/uL; Eosinophils% 3.5 % (0-5); Hematocrit 38.1 % (37-47); Hemoglobin 11.9 g/dL (12.0-15.0); Lymphocyte # 1.55 X10^3/ul (0.83-4.51); Mean Corp Hgb Conc 31.2 g/dL (32-36); Mean Corpuscular Hgb 31.2 pg (27.0-32.0); Mean Corpuscular Volume 99.7 fL (81-99); Mean Platelet Vol. 9.5 fl (6.2-12.0); Monocyte# 0.62 X10^3/uL; Monocyte% 10.4 % (0-10); NRBC Flagged by Analyzer 0 % (0-5); Neutrophil # 3.49 X10^3/uL (2.7-7.7); Neutrophil % 58.6 % (47-70); Platelet Count 346 K/mm3 (150-450); RBC Distribution Width CV 14.1 % (11.6-14.6); RBC Distribution Width SD 51.8 fl (35.1-43.9); Red Blood Count 3.82 M/mm3 (4.2-5.4)
[2023-05-05 13:25] LABS: ALB/GLOB Ratio 0.9 RATIO (0.9-2.4); AST(SGOT) 49 U/L (15-37); Alanine Aminotransfer ALT/SGPT 38 U/L (13-56); Albumin, Serum 3.4 g/dL (3.2-5.0); Alkaline Phosphatase 56 U/L (45-117); Anion Gap 9 (5-15); BUN 26 mg/dL (7-18); BUN/Creat Ratio 23.6 RATIO (10-20); Calcium,Total 9.2 mg/dL (8.5-10.1); Chloride 108 mmol/L (98-107); EST Glomerular Filtration Rate 51 mL/min (>60); Est Glom Filt Rate - Afr Amer 61 mL/min (>60); Free T3 2.7 pg/mL (2.18-3.98); Globulin 3.7 g/dL (2.2-4.2); Glucose 73 mg/dL (74-106); Potassium 3.7 mmol/L (3.5-5.1); Protein, Total 7.1 g/dL (6.4-8.2); Sodium Level 140 mmol/L (136-145); T4 Free Direct 1.03 ng/dL (0.76-1.46); Thyroid Stim Hormone (TSH) 2.83 uIU/mL (0.358-3.74)
== END | disposition home or self-care (01) ==
LOC: BFHLAB 11:15
PROVIDERS: PCP Family Medicine; Visit Provider Family Medicine
DX: E03.9 Hypothyroidism, unspecified (principal); Z51.81 Encounter for therapeutic drug level monitoring
CPT/HCPCS: 36415; 80053; 84439; 84443; 84481; 85025

== ENCOUNTER → 2023-08-01 | Outpatient (CLI) | payer MEDICARE, OTHER, SELFPAY ==
[2023-08-01 08:15] VITALS: PULSE 106; PULSE 116; PULSE 125; PULSE 127; PULSE 137; PULSE 144; PULSE 150; O2SAT 93; O2SAT 94; O2SAT 96; O2SAT 97; O2SAT 99
--- OUTSIDE RECORDS SUMMARY | 2023-08-01 08:49 | XMS RPT_ITS | CCD ---
Author Name Unknown Address [address] [place] [address] Organization [facility] Care Team Providers Care Automotive Paint Technician Name Role Phone SURINDER JOSE CARLOS Attending Unavailable JOSE CARLOS CADENA Admitting Unavailable DANIELLE PAIGE Primary Care Unavailable NADEEM COATES Consulting Unavailable BLAZE SNYDER Consulting Unavailable Rocky Martin MD Unavailable Danielle Paige Primary Care Provider Medications Current Medications Medication Drug Class(es) Dates Sig (Normalized) Sig (Original) acetaminophen 500 mg oral tablet (2 sources) Start: 11-05-2020 End: 11-05-2020 take 1 dose by mouth three times daily 1,000 mg, Oral, EVERY 8 HOURS SCHEDULED (3 times per day), First dose on Mihaela 11/05/20 at 2200 Maximum dose of acetaminophen is 4000 mg from all sources in 24 hours. acetaminophen 325 mg / oxyCODONE hydrochloride 5 mg oral tablet (1 source) Opioid Agonist Start: 11-09-2020 End: 11-16-2020 oxyCODONE-acetamino phen (PERCOCET) 5-325 MG per tablet Indications: Nodule of apex of right lung Take 1 tablet by mouth every 6 hours as needed for Pain for up to 7 days. Intended supply: 7 days. Take lowest dose possible to manage pain 28 tablet 0 11/09/2020 11/16/2020 Active Albuterol (1 source) beta2-Adrenergic Agonist ALBUTEROL SULFATE IN Inhale into the lungs 0 Active albuterol 0.833 mg/ml / ipratropium bromide 0.167 mg/ml inhalation solution (2 sources) Anticholinergic, beta2-Adrenergic Agonist Start: 11-08-2020 ipratropium-albuter ol (DUONEB) nebulizer solution 1 ampule Completed/Discontinued Medications Medication Drug Class(es) Dates Sig (Normalized) Sig (Original) CALCIUM CARB-CHOLECALCIFERO L TABS (1 source) Start: 02-24-2015 CALCIUM 600 + D TABS take 2 tablets once daily CALCIUM CARB-CHOLECALCIFEROL TABS [id number] Catalina Wilkes CORK COMPOUNDER calcium chloride 0.0014 meq/ml / potassium chloride 0.004 meq/ml / sodium chloride 0.103 meq/ml / sodium lactate 0.028 meq/ml injectable solution (2 sources) Start: 11-05-2020 End: 11-06-2020 Intravenous, at 75 mL/hr, CONTINUOUS, Starting Mihaela 11/05/20 at 1930 Problems Active Problems Problem Classification Problem Date Documented Da te Episodic/Chronic Esophageal disorders (1 source) Gastro-esophageal reflux disease without esophagitis; Translations: [GERD WITHOUT ESOPHAGITIS] Onset: 06-17-2020 Chronic Genitourinary symptoms and ill-defined conditions (1 source) Urge incontinence; Translations: [URGE INCONTINENCE] Onset: 06-17-2020 Chronic Osteoarthritis (4 sources) Unspecified osteoarthritis, unspecified site; Translations: [Osteoarthrosis of the carpometacarpal joint of the thumb] Onset: 05-16-2018 10-02-2018 Chronic Other aftercare (1 source) 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 non-steroidal anti-inflammatories (NSAID); Translations: [FDC USE NSAID] Onset: 06-17-2020 Episodic Other aftercare (1 source) 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; Translations: [OTH FDC CURRENT DRUG THERAPY] Onset: 06-17-2020 Episodic Other connective tissue disease (1 source) Presence of right artificial knee joint; Translations: [PRESENCE RT ARTIFICIAL KNEE JOINT] Onset: 06-17-2020 Chronic Other connective tissue disease (1 source) Arthrodesis status; Translations: [ARTHRODESIS STATUS] Onset: 06-17-2020 Episodic Other diseases of bladder and urethra (2 sources) Overactive bladder; Translations: [OVERACTIVE BLADDER] Onset: 06-17-2020 Chronic Other gastrointestinal disorders (1 source) Full incontinence of feces; Translations: [FULL INCONTINENCE OF FECES] Onset: 06-17-2020 Episodic Other lower respiratory disease (2 sources) Nodule of lung; Translations: [Solitary pulmonary nodule] Onset: 11-05-2020 Episodic Spondylosis; intervertebral disc disorders; other back problems (1 source) Degeneration of cervical intervertebral disc; Translations: [Other cervical disc degeneration, unspecified cervical region] Onset: 04-09-2015 04-09-2015 Chronic Past or Other Problems Problem Classification Problem Date Documented Da te Episodic/Chronic Other connective tissue disease (1 source) Trochanteric bursitis; Translations: [Trochanteric bursitis, right hip] Onset: 05-16-2018 05-16-2018 Episodic Other connective tissue disease (1 source) H/O: arthrodesis; Translations: [Arthrodesis status] Onset: 04-09-2015 04-09-2015 Episodic Unclassified (1 source) Problem Results Test Name Value Interpretation Reference Range Facil ity Vital Signs Date Time Vital Sign Value Performing Clinician Facility 11-09-2020 04:56-0400 Body temperature 97.81 [degF] Ean Mckeon MD Work Phone: [facility] Work Phone: 11-09-2020 04:56-0400 Diastolic blood pressure 79 mm[Hg] Ean Mckeon MD Work Phone: [facility] Work Phone: 11-09-2020 04:56-0400 Heart rate 82 /min Ean Mckeon MD Work Phone: [facility] Work Phone: 11-09-2020 04:56-0400 Respiratory rate 12 /min Ean Mckeon MD Work Phone: [facility] Work Phone: 11-09-2020 04:56-0400 SaO2% (BldA) [Mass fraction] 96 % Ean Mckeon MD Work Phone: [facility] Work Phone: 11-09-2020 04:56-0400 Systolic blood pressure 110 mm[Hg] Ean Mckeon MD Work Phone: [facility] Work Phone: 11-06-2020 00:00-0400 Body mass index (BMI) [Ratio] 24.1 kg/m2 Ean Mckeon MD Work Phone: [facility] Work Phone: 11-06-2020 00:00-0400 Body weight 65.7 kg Ean Mckeon MD Work Phone: [facility] Work Phone: 11-05-2020 23:17-0400 Body height 165.1 cm Ean Mckeon MD Work Phone: [facility] Work Phone: NEGATED: Highlighted [id number] 11:46-0400 BMI (Body Mass Index) 24.29 kg/m2 Estrellita Anderson AT [facility] Work Phone: NEGATED: Highlighted [id number] 11:46-0400 Body weight 63.96 kg Estrellita Anderson AT [facility] Work Phone: NEGATED: Highlighted [id number] 11:46-0400 Body weight 64 kg Estrellita Anderson AT [facility] Work Phone: NEGATED: Highlighted [id number] 11:46-0400 BP Diastolic 70 mm[Hg] Estrellita Anderson AT [facility] Work Phone: NEGATED: Highlighted [id number] 11:46-0400 BP Systolic 102 mm[Hg] Estrellita Anderson AT [facility] Work Phone: NEGATED: Highlighted [id number] 11:46-0400 Height 162.56 cm Estrellita Anderson AT [facility] Work Phone: NEGATED: Highlighted [id number] 11:46-0400 Height 163 cm Estrellita Anderson AT [facility] Work Phone: NEGATED: Highlighted [id number] 11:46-0400 Pulse (Heart Rate) 80 /min Estrellita Anderson AT [facility] Work Phone: Encounters Encounter Date Encounter Type Care Provider Facility Start: 11-05-2020 End: 11-09-2020 Evaluation and management of inpatient Ean Mckeon MD Work Phone: [facility] Procedures Date Procedure Procedure Detail Performing Clinician Start: 11-09-2020 Echo tthrc r-t 2d w/wom-mode compl spec&colr d Brian Bonds MD Work Phone: Start: 11-09-2020 Radiologic exam ches t single view Rajni Hwang MD Work Phone: Start: 11-09-2020 BASIC METABOLIC PANE L W/ REFLEX TO MG FOR LOW K Rajni Hwang MD Work Phone: Start: 11-09-2020 Blood count complete auto&auto difrntl wbc Rajni Hwang MD Work Phone: Start: 11-08-2020 Radiologic exam ches t single view Rajni Hwang MD Work Phone: Start: 11-08-2020 ADD ON LAB TEST Imer Sheridan MD Work Phone: Start: 11-07-2020 Assay of magnesium Elizabeth Hwang MD Work Phone: Start: 11-07-2020 BASIC METABOLIC PANE L W/ REFLEX TO MG FOR LOW K Rajni Hwang MD Work Phone: Start: 11-07-2020 Ecg routine ecg w/le ast 12 lds w/i&r Ean Mckeon MD Work Phone: Start: 11-07-2020 Radiologic exam ches t single view Rajni Hwang MD Work Phone: Start: 11-07-2020 BASIC METABOLIC PANE L W/ REFLEX TO MG FOR LOW K Rajni Hwang MD Work Phone: Start: 11-07-2020 Blood count complete auto&auto difrntl wbc Rajni Hwang MD Work Phone: Start: 11-06-2020 Radiologic exam ches t single view Rajni Hwang MD Work Phone: Start: 11-06-2020 OPERATIVE REPORT 3m Sca nning Start: 11-06-2020 BASIC METABOLIC PANE L W/ REFLEX TO MG FOR LOW K Rajni Hwang MD Work Phone: Start: 11-06-2020 Blood count complete auto&auto difrntl wbc Rajni Hwang MD Work Phone: Start: 11-05-2020 Radiologic exam ches t single view Rajni Hwang MD Work Phone: Start: 11-05-2020 BLOOD GAS, ARTERIAL Rachel Mckeon MD Work Phone: Start: 02-05-2019 End: 02-05-2019 Blood pressure within normal parameters - no follow-up required Rocky Martin MD Work Phone: Start: 02-05-2019 End: 02-05-2019 BMI documented within normal parameters - no follow-up plan is required Rocky Martin MD Work Phone: Start: 02-05-2019 End: 02-05-2019 Documentation of current medications Rocky Martin MD Work Phone: Start: 02-05-2019 End: 02-05-2019 Osteoarthritis assess Rocky Martin MD Work Phone: Start: 02-05-2019 End: 02-05-2019 Pain assessment documented as negative - follow-up not required Rocky Martin MD Work Phone: Start: 02-05-2019 End: 02-05-2019 Tobacco non-user Rocky Martin MD Work Phone: NEGATED: Highlighted rowStart: 02-05-2019 End: 02-05-2019 Documentation of current medications Estrellita Anderson AT Plan of Treatment Date Care Activity Detail Author Start: 03-17-2021 Influenza vaccination Flu vaccine (Season Ended) [facility] Work Phone: Start: 11-24-2020 End: 11-24-2020 Patient encounter procedure 11/24/2020 Office Visit Cardiothoracic Surgery Miladys, Bobby Woody, ELECTRONIC FUNDS TRANSFER COORDINATOR - MODELING ANALYST [address] [place] [address] [phone] [facility] Start: 10-14-2020 Annual Wellness Visit (AWV) Annual Wellness Visit (AWV) [facility] Work Phone: Start: 02-05-2019 End: 02-05-2019 Appointment Appointment [facility] Work Phone: Start: 2007 Pneumococcal 65+ years Vaccine (2 of 2 - PPSV23) Pneumococcal 65+ years Vaccine (2 of 2 - PPSV23) [facility] Work Phone: Start: 1997 Screening for osteoporosis DEXA (modify frequency per FRAX score) [facility] Work Phone: Start: 1992 Shingles Vaccine (1 of 2) Shingles Vaccine (1 of 2) [facility] Work Phone: Start: 1961 DTaP/Tdap/Td vaccine (1 - Tdap) DTaP/Tdap/Td vaccine (1 - Tdap) [facility] Work Phone: Start: 1958 COVID-19 Vaccine (1) COVID-19 Vaccine (1) [facility] Work Phone: Start: 1940 Hepatitis C screening Hepatitis C screen [facility] Work Phone: Acapella Acapella Respira tory Care Routine Daily until discontinued starting 11/05/2020 [facility] Work Phone: Payers Date Payer Category Payer [employer] ( and others) FOR LIFE MEDICARE SUPP [id number] 2020-Present C/O [employer]/ [address] [place] [address] [id number] 1959 [employer] ( and others) [id number] 1957 Medicare [id number] 1940 Unknown [id number] Social History Date Type Detail Facility Start: 02-05-2019 End: 02-05-2019 Assertion Unknown if ever smoked [facility] Work Phone: Start: 11-06-2020 Tobacco smoking stat [facility] Never smoker [facility] Work Phone: Start: 11-06-2020 Tobacco use and exposure Never used [facility] Start: 11-06-2020 Alcohol intake Ex-drinker (finding) [facility] Work Phone: Start: 10-14-2020 Alcohol Comment 3-4 X week a g lass of wine [facility] Work Phone: Sex Assigned At Not on file [facility] Work Phone: Exposure to SARS-CoV -2 (event) Not sure [facility] Discharge summary note 11-09-2020 Note Date & Type Note Facility 11-09-2020 Note Discharge Summary: C ardiothoracic Surgery Jyoti Fair :1940 AGE: 80 y.o. ADMIT DATE: 11/05/2020 DISCHARGE DATE: 11/09/2020 DISCHARGING SURGEON: Ean Mckeon MD, Office Number: [phone] PRIMARY CARE PHYSICIAN: DANIELLE PAIGE VISIT STATUS: Admission CODE STATUS: Full Code SURGERY: right thoracotomy, right upper lobectomy, level 7, 8R, 9R, 10FR lymphadenectomy 11/05/2020 HOSPITAL COURSE: Jyoti Fair was admitted on 11/05/2020 for the above procedures. She tolerated the procedures, was extubated in OR without incident, and was taken to the heart and lung unit. She developed afib with RVR on POD#3 and was converted to NSR with IV metoprolol. Cardiology was consulted. She was started on metoprolol TID (switched to daily metoprolol XL on discharge) and outpatient event monitor was recommended. TTE was normal. The rest of her post-op course was unremarkable and consisted of pulmonary hygiene, diet advancement, and pain control. She was discharged on 11/09/2020 in stable condition. DIAGNOSTICS: CXR TTE CONSULTS/TREATMENT TEAM: Cardiology Acute pain service DISCHARGE DIAGNOSES: 1. Right upper lobe nodule - stage I nonsmall cell lung cancer resected in its entirety. 2. Non-valvular atrial fibrillation with rapid ventricular response (paroxysmal, unrelated to thoracotomy) DISCHARGE MEDICATIONS: Jyoti Fair Home Medication Instructions LC:[id number] Printed on:11/09/20 0188 Medication Information ALBUTEROL SULFATE IN Inhale into the lungs calcium carbonate 600 MG TABS tablet Take 1 tablet by mouth daily denosumab (PROLIA) 60 MG/ML SOSY SC injection Inject 60 mg into the skin once Twice yearly diclofenac-miSOPROStol (ARTHROTEC 75) 75-0.2 MG per tablet Take 1 tablet by mouth 2 times daily fluticasone-salmeterol (ADVAIR HFA) 230-21 MCG/ACT inhaler Inhale 2 puffs into the lungs 2 times daily metoprolol succinate (TOPROL XL) 50 MG extended release tablet Take 1.5 tablets by mouth daily Multiple Vitamin (MULTIVITAMIN ADULT PO) Take by mouth OMEPRAZOLE PO Take 40 mg by mouth oxyCODONE-acetaminophen (PERCOCET) 5-325 MG per tablet Take 1 tablet by mouth every 6 hours as needed for Pain for up to 7 days. Intended supply: 7 days. Take lowest dose possible to manage pain polyethylene glycol (GLYCOLAX) 17 GM/SCOOP powder Take 17 g by mouth daily DIET: DIET GENERAL; BMI CLASSIFICATION:Normal Weight (BMI 18.5-24.9) ACTIVITY: activity as tolerated, strict post-sternotomy/post-thoracotomy sternal precautions as outlined in the home going instructions and no driving or operating heavy machinery until released by provider STRICT POST-STERNOTOMY/POST-THORACOTOMY PRECAUTIONS OUTLINED IN THE HOME GOING INSTRUCTIONS FOLLOW UP: Cardiology Post-op visit CORE CARDIAC MEDICATIONS PRESCRIBED AT DISCHARGE: BB Post-operative Atrial Fibrillation: [x]Yes [] No OAC: [] Yes [x] No Initial Post-op RBC transfusion date/reason: none noted during post-operative course Chronic Lung Disease: Mild (FEV1 60% to 75% of predicted, and/or on chronic inhaled or oral bronchodilator therapy) DISPOSITION: Home A copy of the discharge instructions which included the medications at the time of discharge, follow-up appointments, phone numbers to call with questions, activity, restrictions, and limitations was provided to the patient or their family. We greatly appreciate the opportunity to participate in the care of your patient. If you have any additional questions or concerns regarding any aspects of their care or management please do not hesitate to contact us. SIGNED: Rajni Hwang MD 11/09/2020, 2:38 PM [facility] History of Present illness Narrative 11-09-2020 Rajni Hwang MD - 11/09/2020 7:51 AM Grisel Diggs APRN - MODELING ANALYST - 11/08/2020 11:03 AM Rajni Huerta MD - 11/08/2020 6:51 AM Imer Rojas MD - 11/08/2020 1:47 AM EDT Note Date & Type Note Facility 11-09-2020 History of Present illness Narrative Images from the original note were not included. Cardiothoracic Surgery Progress Note 11/09/2020 7:52 AM Subjective: Admit Date: 11/05/2020 PCP: DANIELLE PAIGE Interval History: 11/05 R thoracotomy, RUL resection, lymphadenectomy Subjective: NAEON Pain controlled on PO meds Has been OOB and ambulating No fevers, chills, CP or SOB Non-labored breathing on room air Objective: Vitals: Temp (24hrs), Av.4 F (36.9 C), Min:97.8 F (36.6 C), Max:99.3 F (37.4 C) BP 110/79 Pulse 82 Temp 97.8 F (36.6 C) (Temporal) Resp 12 Ht 5' 5 (1.651 m) Wt 144 lb 13.5 oz (65.7 kg) SpO2 96% BMI 24.10 kg/m I/O: Patient Vitals for the past 96 hrs (Last 3 readings): Weight 11/06/20 0000 144 lb 13.5 oz (65.7 kg) 11/05/20 2317 144 lb 13.5 oz (65.7 kg) 11/05/20 0845 141 lb (64 kg) Labs and Diagnostics: (reviewed in EMR) BMP: Recent Labs 11/07/20 0357 11/07/20 2350 11/09/20 0226 NA 133* 137 136 K 4.0 3.7 4.3 CL 103 105 105 CO2 26 26 29 BUN 15 12 14 CREATININE 0.59 0.66 0.70 GLUCOSE 96 103* 87 . CBC: Recent Labs 11/07/20 2350 11/09/20 0226 WBC 7.5 6.4 HGB 12.0 11.8 PLT 202 218 Hepatic: No results for input(s): AST, ALT, ALB, BILITOT, ALKPHOS in the last 72 hours. INR: No results found for: PROTIME, INR Medications: Scheduled Meds: metoprolol tartrate 25 mg Oral Q8H polyethylene glycol 17 g Oral Daily sennosides-docusate sodium 1 tablet Oral Daily ipratropium-albuterol 1 ampule Inhalation BID- 8&2 sodium chloride flush 5-40 mL Intravenous 2 times per day enoxaparin 40 mg Subcutaneous Daily acetaminophen 1,000 mg Oral 3 times per day Continuous Infusions: sodium chloride 25 mL (11/06/20 1712) Home Meds: Prior to Admission medications Medication Sig Start Date End Date Taking? Authorizing Provider fluticasone-salmeterol (ADVAIR HFA) 230-21 MCG/ACT inhaler Inhale 2 puffs into the lungs 2 times daily Historical Provider, diclofenac-miSOPROStol (ARTHROTEC 75) 75-0.2 MG per tablet Take 1 tablet by mouth 2 times daily Historical Provider, calcium carbonate 600 MG TABS tablet Take 1 tablet by mouth daily Historical Provider, Multiple Vitamin (MULTIVITAMIN ADULT PO) Take by mouth Historical Provider, denosumab (PROLIA) 60 MG/ML SOSY SC injection Inject 60 mg into the skin once Twice yearly Historical Provider, OMEPRAZOLE PO Take 40 mg by mouth Historical Provider, ALBUTEROL SULFATE IN Inhale into the lungs Historical Provider, Physical Exam Vitals signs reviewed. Constitutional: General: She is not in acute distress. Appearance: Normal appearance. HENT: Head: Normocephalic and atraumatic. Right Ear: Tympanic membrane normal. Left Ear: Tympanic membrane normal. Mouth/Throat: Mouth: Mucous membranes are moist. Eyes: Extraocular Movements: Extraocular movements intact. Pupils: Pupils are equal, round, and reactive to light. Neck: Musculoskeletal: Normal range of motion and neck supple. No neck rigidity or muscular tenderness. Cardiovascular: Rate and Rhythm: Normal rate and regular rhythm. Pulses: Normal pulses. Pulmonary: Comments: Incisions c/d/i Abdominal: General: There is no distension. Palpations: Abdomen is soft. Tenderness: There is no abdominal tenderness. There is no guarding or rebound. Musculoskeletal: Normal range of motion. General: No swelling, tenderness or deformity. Skin: General: Skin is warm and dry. Capillary Refill: Capillary refill takes less than 2 seconds. Neurological: General: No focal deficit present. Mental Status: She is alert and oriented to person, place, and time. Psychiatric: Mood and Affect: Mood normal. Diet: DIET GENERAL; Problem List: Active Problems: Nodule of apex of right lung Resolved Problems: * No resolved hospital problems. * Assessment and Plan: 80 y.o. M s/p R thoracotomy and right upper lobectomy, lymphadenectomy 11/05 - Cardiology consulted -> switch to succinate 75 mg daily prior to dc, event monitor as outpatient - TTE pending - Gen diet - Mandy duonebs, IS, acapella - PRN pain/nausea meds - OOB, ambulate - DVT PPx - D/w Dr. Mckeon Disclaimers: INFORMED CONSENT: The nature and purpose of the proposed treatment and/or procedure have been discussed. The risks and benefits of the proposed treatment or procedures have been reviewed. Alternatives have been reviewed in addition to the risks and benefits of not receiving treatments or undergoing procedures. Pursuant to this discussion, the patient agrees to undergo the proposed treatment or procedure. Captured images seen in this note are not a substitute for a comprehensive interpretation of the entire data set as reflected by the interpreting physician with regard to radiology, echocardiography, and other diagnostic images. This note may have been dictated using [employer] Practice Edition 2.6 and/or Leaky Voice Recognition Feature. The document was proofread; however, unrecognized voice recognition tallow maker errors may be present. Associated attestation - Ean Mckeon MD - 11/09/2020 12:49 PM EDT I personally performed a face to face diagnostic evaluation on this patient. I agree with the findings and plan of care as documented by the resident/SECONDARY SCHOOL PRINCIPAL/ENVIRONMENTAL COMPLIANCE MANAGER/PA, unless otherwise noted. Ean Mckeon MD PAGING: The Acute Pain Service providers are available via [employer]. Please reference [employer] for Pain Management Provider MICROFABRICATION ENGINEER MANAGER and direct all questions to the provider listed. Due to the current environment of [place] [address], PPE was worn for the duration of all face to face encounters including but not limited to an N95 in accordance with [facility] and hospital guidelines. 11/08/2020 Referring Physician: Ean Mckeon MD Subjective: We have been asked to see this 80 y.o. female for postoperative pain management s/p R thoracotomy, RUL resection, lymphadenectomy on 11/05/20. 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 Labs and imaging reviewed. Patient went into a.fib with RVR during the night - converted to NSR with metoprolol. No pages. On arrival, pt sitting in bedside chair. Pt appears well, comfortable. Pt talkative and cooperative throughout exam, happy with current pain regimen, states pain has been well-controlled and tolerable (patient has used minimal narcotics). Tolerating diet, denies n/v. Patient educated on pain regimen, agreeable, denies further questions. PMH reviewed below, significant for: Asthma, Arthritis Sedation score: 1: Awake and alert Pain Severity: mild Pain Location: surgical site Pain Quality: aching Timing: Intermittent Aggravating Factors: Moving Alleviating Factors: Pain medications and Rest Social History Tobacco Use Smoking Status Never Smoker Smokeless Tobacco Never Used Social History Substance and Sexual Activity Alcohol Use Not Currently Comment: 3-4 X week a glass of wine Social History Substance and Sexual Activity Drug Use Not Currently Smoking: Never ETOH: No Illicit Drugs: NONE Prescription Drug Abuse: NONE Pain Management: n/a The patient's medical history and physical assessment, medications, allergies, patient's current medical condition, imaging, and labs were reviewed as part of this consultation. [x] Patient's Medications have been reviewed. [x] Patient's OARRS report (PDMP) have been reviewed. ORS - 01/22/2020 1 01/22/2020 Oxycodone Hcl 5 MG Tablet 60.00 8 Ra [facility] [id number] Rit (0102) 0 56.25 MME Objective Findings: Height: 5' 5 (165.1 cm) Weight: 144 lb 13.5 oz (65.7 kg) BMI (Calculated): 24.2 Vital signs: Blood pressure 92/62, pulse 86, temperature 98.3 F (36.8 C), temperature source Temporal, resp. rate 16, height 5' 5 (1.651 m), weight 144 lb 13.5 oz (65.7 kg), SpO2 94 %. Lab Results Component Value Date/Time HGB 12.0 11/07/2020 11:50 PM HCT 35.7 11/07/2020 11:50 PM PLT 202 11/07/2020 11:50 PM WBC 7.5 11/07/2020 11:50 PM NA 137 11/07/2020 11:50 PM K 3.7 11/07/2020 11:50 PM BUN 12 11/07/2020 11:50 PM CREATININE 0.66 11/07/2020 11:50 PM GLUCOSE 103 (H) 11/07/2020 11:50 PM AST 35 11/02/2020 03:25 PM ALT 20 11/02/2020 03:25 PM Allergies: Patient has no known allergies. Past Medical History: Diagnosis Date Arthritis Asthma History of blood transfusion Lung nodules Past Surgical History: Procedure Laterality Date CATARACT REMOVAL 2011 right and left CERVICAL FUSION 2014 COLONOSCOPY HAND SURGERY OTHER SURGICAL HISTORY 2011 hammock under urtethra OTHER SURGICAL HISTORY 11/05/2020 right thoracotomy, right upper lobectomy ROTATOR CUFF REPAIR 2006 TOTAL KNEE ARTHROPLASTY Right Family History Problem Relation Age of Onset Heart Disease Mother Heart Disease Father Patient Active Problem List Diagnosis Nodule of apex of right lung Review of Systems Constitutional: Negative for chills and fever. HENT: Negative for hearing loss, tinnitus and trouble swallowing. Eyes: Negative for photophobia, pain, discharge and redness. Respiratory: Negative for cough, shortness of breath and wheezing. Cardiovascular: Negative for chest pain and leg swelling. Gastrointestinal: Negative for abdominal pain, nausea and vomiting. Genitourinary: Negative for difficulty urinating, dysuria, frequency, hematuria and urgency. Musculoskeletal: Negative for back pain, myalgias and neck pain. Skin: Negative for rash. Allergic/Immunologic: Negative. Neurological: Negative. Negative for dizziness and light-headedness. Hematological: Negative. Psychiatric/Behavioral: Negative for agitation and confusion. The patient is not nervous/anxious. Physical Exam Vitals signs and nursing note reviewed. HENT: Head: Normocephalic and atraumatic. Eyes: Extraocular Movements: Extraocular movements intact. Neck: Musculoskeletal: Normal range of motion. Cardiovascular: Rate and Rhythm: Normal rate. Pulmonary: Effort: Pulmonary effort is normal. Abdominal: Palpations: Abdomen is soft. Musculoskeletal: General: No tenderness. Skin: General: Skin is warm and dry. Neurological: Mental Status: She is alert and oriented to person, place, and time. Psychiatric: Attention and Perception: Attention normal. Mood and Affect: Mood normal. Speech: Speech normal. Behavior: Behavior normal. Behavior is cooperative. Thought Content: Thought content normal. Judgment: Judgment normal. Pain Management Adjuvants: 0700 --> 0700 11/06/2020 11/07/2020 Scheduled Acetaminophen 1,000 mg TID ATC 3 g 3 g PRN Oxycodone 15 mg Hydromorphone 0 BLOCK: Erector Spinae/Serratus Plane Assessment / Pain Management Plan: 1. Acute Postsurgical Pain s/p R thoracotomy, RUL resection, lymphadenectomy on 11/05. Oxycodone 5 - 10 mg po q4h prn moderate to severe breakthrough pain. Hydromorphone 0.25 mg - 0.5 mg IVP q4h prn moderate to severe breakthrough pain. Please utilize oral medications first. Acetaminophen 1000 mg po TID scheduled ATC. Liver enzymes WNL, last checked: 11/02/20 2. Risk for constipation secondary to opioid use Patient currently receiving opioids for pain management necessitating a bowel regimen. Recommend initiating scheduled Sennakot-S 8.6/50mg, 1 tablet PO BID. Would also recommend Milk of Magnesia 400mg/5ml, administer 30mL by mouth daily PRN. 3. Opioid Use Acute: Expected to be short term postop pain, see #1 Reviewed and educated patient on responsible use of opioids: after surgery, it can be normal to experience pain. If it is mild and you can move about without great difficulty or discomfort, you may not need to take pain medication. It is very important to take your pain medication only as needed. Avoiding excessive or unnecessary medication, will enable you to progress your activity each day to improve your muscle tone and movement, deep breathing, digestion, circulation and your body's ability to heal itself. Patient pain is well controlled at this time on current pain regimen. We will sign off at this time. Please re-consult our service if patient's pain becomes uncontrolled. Thank you for inviting us to participate in the care of this patient. Plan discussed with patient who appears to understand and agrees. PAGING: The Acute Pain Service providers are available via [employer]. Please reference [employer] for Pain Management Provider MICROFABRICATION ENGINEER MANAGER and direct all questions to the provider listed. Images from the original note were not included. Cardiothoracic Surgery Progress Note 11/08/2020 8:52 AM Subjective: Admit Date: 11/05/2020 PCP: DANIELLE PAIGE Interval History: 11/05 R thoracotomy, RUL resection, lymphadenectomy Subjective: Asymptomatic Afib RVR overnight, converted to NSR with 20 mg total IV metoprolol, cardiology consulted and started on 25 mg metoprolol TID Pain controlled on PO meds No chest pain or SOB, nausea/vomiting, fevers, or chills Has been OOB and ambulating Non-labored breathing on room air Objective: Vitals: Temp (24hrs), Av.5 F (36.9 C), Min:97 F (36.1 C), Max:99.3 F (37.4 C) BP 92/62 Pulse 85 Temp 98.3 F (36.8 C) (Temporal) Resp 16 Ht 5' 5 (1.651 m) Wt 144 lb 13.5 oz (65.7 kg) SpO2 93% BMI 24.10 kg/m I/O: Patient Vitals for the past 96 hrs (Last 3 readings): Weight 11/06/20 0000 144 lb 13.5 oz (65.7 kg) 11/05/20 2317 144 lb 13.5 oz (65.7 kg) 11/05/20 0845 141 lb (64 kg) Labs and Diagnostics: (reviewed in EMR) BMP: Recent Labs 11/06/20 0124 11/07/20 0357 11/07/20 2350 NA 138 133* 137 K 4.1 4.0 3.7 CL 108* 103 105 CO2 23 26 26 BUN 21* 15 12 CREATININE 0.53 0.59 0.66 GLUCOSE 151* 96 103* . CBC: Recent Labs 11/07/20 0357 11/07/20 2350 WBC 7.5 7.5 HGB 11.9 12.0 PLT 194 202 Hepatic: No results for input(s): AST, ALT, ALB, BILITOT, ALKPHOS in the last 72 hours. INR: No results found for: PROTIME, INR Medications: Scheduled Meds: metoprolol tartrate 25 mg Oral Q8H polyethylene glycol 17 g Oral Daily sennosides-docusate sodium 1 tablet Oral Daily ipratropium-albuterol 1 ampule Inhalation BID- 8&2 sodium chloride flush 5-40 mL Intravenous 2 times per day enoxaparin 40 mg Subcutaneous Daily acetaminophen 1,000 mg Oral 3 times per day Continuous Infusions: sodium chloride 25 mL (11/06/20 1712) Home Meds: Prior to Admission medications Medication Sig Start Date End Date Taking? Authorizing Provider fluticasone-salmeterol (ADVAIR HFA) 230-21 MCG/ACT inhaler Inhale 2 puffs into the lungs 2 times daily Historical Provider, diclofenac-miSOPROStol (ARTHROTEC 75) 75-0.2 MG per tablet Take 1 tablet by mouth 2 times daily Historical Provider, calcium carbonate 600 MG TABS tablet Take 1 tablet by mouth daily Historical Provider, Multiple Vitamin (MULTIVITAMIN ADULT PO) Take by mouth Historical Provider, denosumab (PROLIA) 60 MG/ML SOSY SC injection Inject 60 mg into the skin once Twice yearly Historical Provider, OMEPRAZOLE PO Take 40 mg by mouth Historical Provider, ALBUTEROL SULFATE IN Inhale into the lungs Historical Provider, Physical Exam Vitals signs reviewed. Constitutional: General: She is not in acute distress. Appearance: Normal appearance. HENT: Head: Normocephalic and atraumatic. Right Ear: Tympanic membrane normal. Left Ear: Tympanic membrane normal. Mouth/Throat: Mouth: Mucous membranes are moist. Eyes: Extraocular Movements: Extraocular movements intact. Pupils: Pupils are equal, round, and reactive to light. Neck: Musculoskeletal: Normal range of motion and neck supple. No neck rigidity or muscular tenderness. Cardiovascular: Rate and Rhythm: Normal rate and regular rhythm. Pulses: Normal pulses. Pulmonary: Comments: Incisions c/d/i Abdominal: General: There is no distension. Palpations: Abdomen is soft. Tenderness: There is no abdominal tenderness. There is no guarding or rebound. Musculoskeletal: Normal range of motion. General: No swelling, tenderness or deformity. Skin: General: Skin is warm and dry. Capillary Refill: Capillary refill takes less than 2 seconds. Neurological: General: No focal deficit present. Mental Status: She is alert and oriented to person, place, and time. Psychiatric: Mood and Affect: Mood normal. Diet: DIET GENERAL; Problem List: Active Problems: Nodule of apex of right lung Resolved Problems: * No resolved hospital problems. * Assessment and Plan: 80 y.o. M s/p R thoracotomy and right upper lobectomy, lymphadenectomy 11/05 - Cardiology consulted, appreciate recs -> continue metop 25 mg TID - Gen diet - Mandy duonebs, IS, acapella - PRN pain/nausea meds - OOB, ambulate - DVT PPx - D/w Dr. Scott, dietitian consultant for Dr. Mckeon Disclaimers: INFORMED CONSENT: The nature and purpose of the proposed treatment and/or procedure have been discussed. The risks and benefits of the proposed treatment or procedures have been reviewed. Alternatives have been reviewed in addition to the risks and benefits of not receiving treatments or undergoing procedures. Pursuant to this discussion, the patient agrees to undergo the proposed treatment or procedure. Captured images seen in this note are not a substitute for a comprehensive interpretation of the entire data set as reflected by the interpreting physician with regard to radiology, echocardiography, and other diagnostic images. This note may have been dictated using [employer] Edition 2.6 and/or Leaky Voice Recognition Feature. The document was proofread; however, unrecognized voice recognition tallow maker errors may be present. Associated attestation - Luis M Scott MD - 11/08/2020 10:36 AM EDT I independently saw and evaluated the patient - including reviewing the labs, imaging studies, and available documentation. I agree with the findings and plan of care as documented by the resident/SECONDARY SCHOOL PRINCIPAL/ENVIRONMENTAL COMPLIANCE MANAGER/PA, unless otherwise noted. Please do not hesitate to contact me/us if you have any questions or concerns. Luis M Scott MD FACS CT Surgery Brief Progress Note Patient still in AF w/RVR s/p 20 mg total of IVP lopressor. Patient still asymptomatic. Discussed with the CCU fellow the attempt for rate control currently. Plan for metoprolol PO 25 mg q8h with strict notification parameters set. If failure with rate control discussed that we could follow with transfer to unit for amio gtt or digoxin gtt for better control. Goal SBP > 90 and HR < 110. Have a low threshold for transfer to unit with amiodarone gtt/bolus for better rate control. Will CTM. Imer Sheridan MD General Surgery PGY1 Pager [phone] 11/08/2020 1:[address] Surgery Brief Progress Note Patient seen and examined at the bedside. Patient had increasing heart rate develop out of no where tonight. She states that she has no n/v, f/c, dyspnea, lightheadedness, weakness, or syncope. She states she went to the bathroom, and RN confirmed there was no spike in HR or drop in BP. Patient does state that she has a little chest pain, but this is not new and the exact same pain she's had since surgery. Patient states that she has never had this happen in the past. Physical exam: Patient resting comfortably. NAD. HR ranging from 135-150 in room Radial pulse irregularly irregular Incisions C/D/I. No erythema, edema, or output noted. No chest tubes present. Plan: -EKG ordered confirmed A-fib w/RVR -Metoprolol 5mg IVP x 1, if HR > 110 after 5 mins, repeat for a total of 4 doses -If still in A-fib w/RVR will need to start amiodarone gtt with cardiology consult tonight -If has increasing oxygen requirements, new onset dyspnea, etc, will repeat CXR tonight -Will continue to monitor Imer Sheridan MD General Surgery PGY1 Pager [phone] 11/08/2020 12:26 AM Pts satellite project site monitor alarming with heart rate in the 170's. Nursing staff arrived in pts room, pt asymptomatic. Vital signs taken. Dr. Sheridan pageelizabet. EKG ordered. New orders put in. Will continue to monitor. Patient Evaluation Form The patient is currently receiving duo QID Points 0 1 2 3 4 Points Totals Pulmonary Status (-/+) History Smoking history < 20 pack years Smoking history > 20 pack years Pulmonary Disorder (acute or chronic) Severe or Chronic with Exacerbation 3 Surgical Status No Surgery Trach PEG General Surgery Lower Abdominal Thoracic or Upper Abdominal Thoracic with Pulmonary Disorder 4 Chest X-ray Clear None Ordered Chronic Changes CXR results Pending Infiltrates, atelectasis, pleural effusion, or edema Infiltrates in more than one lobe Infiltrate + Atelectasis, &/or pleural effusion 2 Respiratory Pattern Regular, RR = 12-20 Increased, RR = 21-25 DIMAS, irregular, or RR = 26-30 Decreased FEV1 or RR = 31-35 Severe SOB, used of of accessory muscles, or RR = > 35 0 Mental Status Alert, oriented, cooperative Confused, but follows commands Lethargic or un-able to follow commands Obtunded Comatose 0 Breath Sounds Clear to auscultation Decreased unilaterally or in bases only Decreased bilaterally Crackles or intermittent wheezes Wheezes 1 Cough Strong, spontaneous, & nonproductive Strong, spontaneous, & productive Weak, nonproductive Weak, productive or with wheezes No spontaneous cough or may require suctioning 0 Level of Activity Ambulatory Ambulatory with Assist Non-ambulatroy Paraplegic Quadriplegic 0 Triage 1 > 20 pts Triage 2 16-20 pts Triage 3 11- 15 pts Triage 4 6 - 10 pts Triage 5 0 - 5 pts TOTAL POINTS = 10 Triage Score = 4 PEF: FVC: FEV1: FVE1/FVC: Patient instructed and returned demonstration on use of MDI (with spacer, as appropriate) NO Changing Therapy to BID Nutrition rescreen completed. Chart reviewed. Patient to be monitored and followed by the diet plastic technician. Images from the original note were not included. Cardiothoracic Surgery Progress Note 11/07/2020 10:03 AM Subjective: Admit Date: 11/05/2020 PCP: DANIELLE PAIGE Interval History: 11/05 R thoracotomy, RUL resection, lymphadenectomy Subjective: No acute events overnight Pain controlled on QUALITY CONTROL SCIENTIST No nausea/vomiting, fevers, or chills Non-labored breathing on [address]: 200 cc over 24 h Objective: Vitals: Temp (24hrs), Av.7 F (37.1 C), Min:98 F (36.7 C), Max:99.9 F (37.7 C) BP 119/81 Pulse 107 Temp 99.9 F (37.7 C) (Temporal) Resp 18 Ht 5' 5 (1.651 m) Wt 144 lb 13.5 oz (65.7 kg) SpO2 95% BMI 24.10 kg/m I/O: Date 11/07/20 - 11/07/20 2358 Shift 3429-0884 6756-9247 6946-5436 24 Hour Total INTAKE Shift Total(mL/kg) OUTPUT Urine(mL/kg/hr) 600(1.1) 600 Emesis/NG output(mL/kg) 0(0) 0(0) Chest Tube 100 100 Shift Total(mL/kg) 700(10.7) 700(10.7) Weight (kg) 65.7 65.7 65.7 65.7 Patient Vitals for the past 96 hrs (Last 3 readings): Weight 11/06/20 0000 144 lb 13.5 oz (65.7 kg) 11/05/20 2317 144 lb 13.5 oz (65.7 kg) 11/05/20 0845 141 lb (64 kg) Labs and Diagnostics: (reviewed in EMR) BMP: Recent Labs 11/06/20 0124 11/07/20 0357 NA 138 133* K 4.1 4.0 CL 108* 103 CO2 23 26 BUN 21* 15 CREATININE 0.53 0.59 GLUCOSE 151* 96 . CBC: Recent Labs 11/06/20 0124 11/07/20 0357 WBC 9.7 7.5 HGB 12.7 11.9 PLT 202 194 Hepatic: No results for input(s): AST, ALT, ALB, BILITOT, ALKPHOS in the last 72 hours. INR: No results found for: PROTIME, INR Medications: Scheduled Meds: sodium chloride flush 5-40 mL Intravenous 2 times per day enoxaparin 40 mg Subcutaneous Daily acetaminophen 1,000 mg Oral 3 times per day ipratropium-albuterol 1 ampule Inhalation Q4H WA Continuous Infusions: sodium chloride 25 mL (11/06/20 1712) Home Meds: Prior to Admission medications Medication Sig Start Date End Date Taking? Authorizing Provider fluticasone-salmeterol (ADVAIR HFA) 230-21 MCG/ACT inhaler Inhale 2 puffs into the lungs 2 times daily Historical Provider, diclofenac-miSOPROStol (ARTHROTEC 75) 75-0.2 MG per tablet Take 1 tablet by mouth 2 times daily Historical Provider, calcium carbonate 600 MG TABS tablet Take 1 tablet by mouth daily Historical Provider, Multiple Vitamin (MULTIVITAMIN ADULT PO) Take by mouth Historical Provider, denosumab (PROLIA) 60 MG/ML SOSY SC injection Inject 60 mg into the skin once Twice yearly Historical Provider, OMEPRAZOLE PO Take 40 mg by mouth Historical Provider, ALBUTEROL SULFATE IN Inhale into the lungs Historical Provider, Physical Exam Vitals signs reviewed. Constitutional: General: She is not in acute distress. Appearance: Normal appearance. HENT: Head: Normocephalic and atraumatic. Right Ear: Tympanic membrane normal. Left Ear: Tympanic membrane normal. Mouth/Throat: Mouth: Mucous membranes are moist. Eyes: Extraocular Movements: Extraocular movements intact. Pupils: Pupils are equal, round, and reactive to light. Neck: Musculoskeletal: Normal range of motion and neck supple. No neck rigidity or muscular tenderness. Cardiovascular: Rate and Rhythm: Normal rate and regular rhythm. Pulses: Normal pulses. Pulmonary: Comments: Chest tubes without air leak Incisions c/d/i Abdominal: General: There is no distension. Palpations: Abdomen is soft. Tenderness: There is no abdominal tenderness. There is no guarding or rebound. Musculoskeletal: Normal range of motion. General: No swelling, tenderness or deformity. Skin: General: Skin is warm and dry. Capillary Refill: Capillary refill takes less than 2 seconds. Neurological: General: No focal deficit present. Mental Status: She is alert and oriented to person, place, and time. Psychiatric: Mood and Affect: Mood normal. Diet: DIET GENERAL; Problem List: Active Problems: Nodule of apex of right lung Resolved Problems: * No resolved hospital problems. * Assessment and Plan: 80 y.o. M s/p R thoracotomy and right upper lobectomy, lymphadenectomy 11/05 - Doing well post-op - DC chest tube - Gen diet - Mandy duonebs, IS, acapella - Acute pain following, appreciate continued recs. Wean IV meds as able - Potential dc home tomorrow - D/w Dr. Scott, dietitian consultant for Dr. Mckeon Disclaimers: INFORMED CONSENT: The nature and purpose of the proposed treatment and/or procedure have been discussed. The risks and benefits of the proposed treatment or procedures have been reviewed. Alternatives have been reviewed in addition to the risks and benefits of not receiving treatments or undergoing procedures. Pursuant to this discussion, the patient agrees to undergo the proposed treatment or procedure. Captured images seen in this note are not a substitute for a comprehensive interpretation of the entire data set as reflected by the interpreting physician with regard to radiology, echocardiography, and other diagnostic images. This note may have been dictated using [employer] Edition 2.6 and/or Leaky Voice Recognition Feature. The document was proofread; however, unrecognized voice recognition tallow maker errors may be present. Associated attestation - Luis M Scott MD - 11/07/2020 10:33 AM EDT I independently saw and evaluated the patient - including reviewing the labs, imaging studies, and available documentation. I agree with the findings and plan of care as documented by the resident/SECONDARY SCHOOL PRINCIPAL/ENVIRONMENTAL COMPLIANCE MANAGER/PA, unless otherwise noted. Please do not hesitate to contact me/us if you have any questions or concerns. Luis M Scott MD FACS PAGING: The Acute Pain Service providers are available via [employer]. Please reference [employer] for Pain Management Provider MICROFABRICATION ENGINEER MANAGER and direct all questions to the provider listed. Due to the current environment of [place] [address], PPE was worn for the duration of all face to face encounters including but not limited to an N95 in accordance with [facility] and hospital guidelines. 11/07/2020 Referring Physician: Ean Mckeon MD Subjective: We have been asked to see this 80 y.o. female for postoperative pain management s/p R thoracotomy, RUL resection, lymphadenectomy on 11/05/20. 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 Labs and imaging reviewed. NAEON, no pages. On arrival, pt sitting up in bed. Pt appears well, comfortable. Pt talkative and cooperative throughout exam, happy with current pain regimen, but would like to discontinue QUALITY CONTROL SCIENTIST today. Tolerating diet, denies n/v. Patient educated on PO pain regimen, agreeable, denies further questions. PMH reviewed below, significant for: Asthma, Arthritis Sedation score: 1: Awake and alert Pain Severity: mild Pain Location: Chest tube site Pain Quality: aching Timing: Intermittent Aggravating Factors: Moving Alleviating Factors: Pain medications and Rest Social History Tobacco Use Smoking Status Never Smoker Smokeless Tobacco Never Used Social History Substance and Sexual Activity Alcohol Use Not Currently Comment: 3-4 X week a glass of wine Social History Substance and Sexual Activity Drug Use Not Currently Smoking: Never ETOH: No Illicit Drugs: NONE Prescription Drug Abuse: NONE Pain Management: n/a The patient's medical history and physical assessment, medications, allergies, patient's current medical condition, imaging, and labs were reviewed as part of this consultation. [x] Patient's Medications have been reviewed. [x] Patient's OARRS report (PDMP) have been reviewed. ORS - 01/22/2020 1 01/22/2020 Oxycodone Hcl 5 MG Tablet 60.00 8 Ra [facility] [id number] Rit (0102) 0 56.25 MME Objective Findings: Height: 5' 5 (165.1 cm) Weight: 144 lb 13.5 oz (65.7 kg) BMI (Calculated): 24.2 Vital signs: Blood pressure 119/81, pulse 107, temperature 99.9 F (37.7 C), temperature source Temporal, resp. rate 18, height 5' 5 (1.651 m), weight 144 lb 13.5 oz (65.7 kg), SpO2 93 %. Lab Results Component Value Date/Time HGB 11.9 11/07/2020 03:57 AM HCT 35.2 11/07/2020 03:57 AM PLT 194 11/07/2020 03:57 AM WBC 7.5 11/07/2020 03:57 AM NA 133 (L) 11/07/2020 03:57 AM K 4.0 11/07/2020 03:57 AM BUN 15 11/07/2020 03:57 AM CREATININE 0.59 11/07/2020 03:57 AM GLUCOSE 96 11/07/2020 03:57 AM AST 35 11/02/2020 03:25 PM ALT 20 11/02/2020 03:25 PM Allergies: Patient has no known allergies. Past Medical History: Diagnosis Date Arthritis Asthma History of blood transfusion Lung nodules Past Surgical History: Procedure Laterality Date CATARACT REMOVAL 2011 right and left CERVICAL FUSION 2014 COLONOSCOPY HAND SURGERY OTHER SURGICAL HISTORY 2011 hammock under urtethra OTHER SURGICAL HISTORY 11/05/2020 right thoracotomy, right upper lobectomy ROTATOR CUFF REPAIR 2006 TOTAL KNEE ARTHROPLASTY Right Family History Problem Relation Age of Onset Heart Disease Mother Heart Disease Father Patient Active Problem List Diagnosis Nodule of apex of right lung Review of Systems Constitutional: Negative for chills and fever. HENT: Negative for hearing loss and tinnitus. Eyes: Negative for photophobia, pain, discharge and redness. Respiratory: Negative for cough, shortness of breath and wheezing. Cardiovascular: Positive for chest pain (2/2 chest tube site ). Negative for palpitations and leg swelling. Gastrointestinal: Negative for abdominal pain, nausea and vomiting. Genitourinary: Negative for dysuria, frequency, hematuria and urgency. Musculoskeletal: Negative for back pain, myalgias and neck pain. Skin: Negative for rash. Allergic/Immunologic: Negative. Neurological: Negative. Negative for dizziness and light-headedness. Hematological: Negative. Psychiatric/Behavioral: Negative for agitation and confusion. The patient is not nervous/anxious. Physical Exam Vitals signs and nursing note reviewed. HENT: Head: Normocephalic and atraumatic. Eyes: Extraocular Movements: Extraocular movements intact. Neck: Musculoskeletal: Normal range of motion. Cardiovascular: Rate and Rhythm: Normal rate. Pulmonary: Effort: Pulmonary effort is normal. Abdominal: Palpations: Abdomen is soft. Musculoskeletal: General: No tenderness. Skin: General: Skin is warm and dry. Comments: Chest tube to water seal Neurological: Mental Status: She is alert and oriented to person, place, and time. Psychiatric: Attention and Perception: Attention normal. Mood and Affect: Mood normal. Speech: Speech normal. Behavior: Behavior normal. Behavior is cooperative. Pain Management Adjuvants: 0700 --> 0700 11/06/2020 11/07/2020 Scheduled Acetaminophen 1,000 mg TID ATC 3 g PRN Oxycodone Hydromorphone BLOCK: Erector Spinae/Serratus Plane Assessment / Pain Management Plan: PO Regimen today 1. Acute Postsurgical Pain s/p R thoracotomy, RUL resection, lymphadenectomy on 11/05. PO regimen today Discontinue QUALITY CONTROL SCIENTIST, start PO regimen today, pt agreeable. Oxycodone 5 - 10 mg po q4h prn moderate to severe breakthrough pain. Hydromorphone 0.25 mg - 0.5 mg IVP q4h prn moderate to severe breakthrough pain. Please utilize oral medications first. Acetaminophen 1000 mg po TID scheduled ATC. Liver enzymes WNL, last checked: 11/02/20 2. Risk for constipation secondary to opioid use Patient currently receiving opioids for pain management necessitating a bowel regimen. Recommend initiating scheduled Sennakot-S 8.6/50mg, 1 tablet PO BID. Would also recommend Milk of Magnesia 400mg/5ml, administer 30mL by mouth daily PRN. 3. Opioid Use Acute: Expected to be short term postop pain, see #1 Reviewed and educated patient on responsible use of opioids: after surgery, it can be normal to experience pain. If it is mild and you can move about without great difficulty or discomfort, you may not need to take pain medication. It is very important to take your pain medication only as needed. Avoiding excessive or unnecessary medication, will enable you to progress your activity each day to improve your muscle tone and movement, deep breathing, digestion, circulation and your body's ability to heal itself. Will follow. Plan discussed with patient who appears to understand and agrees. PAGING: The Acute Pain Service providers are available via [employer]. Please reference [employer] for Pain Management Provider MICROFABRICATION ENGINEER MANAGER and direct all questions to the provider listed. Images from the original note were not included. Cardiothoracic Surgery Progress Note 11/06/2020 5:42 AM Subjective: Admit Date: 11/05/2020 PCP: DANIELLE PAIGE Interval History: 11/05 R thoracotomy, RUL resection, lymphadenectomy Subjective: No acute events overnight Pain controlled on QUALITY CONTROL SCIENTIST No nausea/vomiting, fevers, or chills Non-labored breathing on [address]: [address]: 50 cc Objective: Vitals: Temp (24hrs), Av.7 F (36.5 C), Min:97.5 F (36.4 C), Max:97.9 F (36.6 C) BP 109/67 Pulse 84 Temp 97.9 F (36.6 C) (Axillary) Resp 11 Ht 5' 5 (1.651 m) Wt 144 lb 13.5 oz (65.7 kg) SpO2 99% BMI 24.10 kg/m I/O: Date 11/06/20 - 11/06/20 235 Shift 0155-9228 4906-9808 2107-7567 24 Hour Total INTAKE P.O.(mL/kg/hr) 240 240 I.V.(mL/kg) 749.5(11.4) 749.5(11.4) Shift Total(mL/kg) 989.5(15.1) 989.5(15.1) OUTPUT Urine(mL/kg/hr) 1 1 Chest Tube 148 148 Shift Total(mL/kg) 149(2.3) 149(2.3) Weight (kg) 65.7 65.7 65.7 65.7 Patient Vitals for the past 96 hrs (Last 3 readings): Weight 11/06/20 0000 144 lb 13.5 oz (65.7 kg) 11/05/20 2317 144 lb 13.5 oz (65.7 kg) 11/05/20 0845 141 lb (64 kg) Labs and Diagnostics: (reviewed in EMR) BMP: Recent Labs 11/06/20 0124 NA 138 K 4.1 CL 108* CO2 23 BUN 21* CREATININE 0.53 GLUCOSE 151* . CBC: Recent Labs 11/06/20 0124 WBC 9.7 HGB 12.7 PLT 202 Hepatic: No results for input(s): AST, ALT, ALB, BILITOT, ALKPHOS in the last 72 hours. INR: No results found for: PROTIME, INR Medications: Scheduled Meds: sodium chloride flush 5-40 mL Intravenous 2 times per day enoxaparin 40 mg Subcutaneous Daily acetaminophen 1,000 mg Oral 3 times per day ipratropium-albuterol 1 ampule Inhalation Q4H WA Continuous Infusions: sodium chloride lactated ringers 75 mL/hr at 11/06/20 0000 HYDROmorphone Home Meds: Prior to Admission medications Medication Sig Start Date End Date Taking? Authorizing Provider fluticasone-salmeterol (ADVAIR HFA) 230-21 MCG/ACT inhaler Inhale 2 puffs into the lungs 2 times daily Historical Provider, diclofenac-miSOPROStol (ARTHROTEC 75) 75-0.2 MG per tablet Take 1 tablet by mouth 2 times daily Historical Provider, calcium carbonate 600 MG TABS tablet Take 1 tablet by mouth daily Historical Provider, Multiple Vitamin (MULTIVITAMIN ADULT PO) Take by mouth Historical Provider, denosumab (PROLIA) 60 MG/ML SOSY SC injection Inject 60 mg into the skin once Twice yearly Historical Provider, OMEPRAZOLE PO Take 40 mg by mouth Historical Provider, ALBUTEROL SULFATE IN Inhale into the lungs Historical Provider, Physical Exam Vitals signs reviewed. Constitutional: General: She is not in acute distress. Appearance: Normal appearance. HENT: Head: Normocephalic and atraumatic. Right Ear: Tympanic membrane normal. Left Ear: Tympanic membrane normal. Mouth/Throat: Mouth: Mucous membranes are moist. Eyes: Extraocular Movements: Extraocular movements intact. Pupils: Pupils are equal, round, and reactive to light. Neck: Musculoskeletal: Normal range of motion and neck supple. No neck rigidity or muscular tenderness. Cardiovascular: Rate and Rhythm: Normal rate and regular rhythm. Pulses: Normal pulses. Pulmonary: Comments: Chest tubes without air leak Incisions c/d/i Abdominal: General: There is no distension. Palpations: Abdomen is soft. Tenderness: There is no abdominal tenderness. There is no guarding or rebound. Musculoskeletal: Normal range of motion. General: No swelling, tenderness or deformity. Skin: General: Skin is warm and dry. Capillary Refill: Capillary refill takes less than 2 seconds. Neurological: General: No focal deficit present. Mental Status: She is alert and oriented to person, place, and time. Psychiatric: Mood and Affect: Mood normal. Diet: DIET CLEAR LIQUID; Problem List: Active Problems: Nodule of apex of right lung Resolved Problems: * No resolved hospital problems. * Assessment and Plan: 80 y.o. M s/p R thoracotomy and right upper lobectomy, lymphadenectomy 11/05 - Doing well post-op - Plan to pull large bore chest tube today - Gen diet, HLIV - DC art line - Mandy painting IS acapella - Acute pain following, appreciate continued recs - Transfer to Telemetry floor - D/w Dr. Mckeon Disclaimers: INFORMED CONSENT: The nature and purpose of the proposed treatment and/or procedure have been discussed. The risks and benefits of the proposed treatment or procedures have been reviewed. Alternatives have been reviewed in addition to the risks and benefits of not receiving treatments or undergoing procedures. Pursuant to this discussion, the patient agrees to undergo the proposed treatment or procedure. Captured images seen in this note are not a substitute for a comprehensive interpretation of the entire data set as reflected by the interpreting physician with regard to radiology, echocardiography, and other diagnostic images. This note may have been dictated using [employer] Practice Edition 2.6 and/or Leaky Voice Recognition Feature. The document was proofread; however, unrecognized voice recognition tallow maker errors may be present. Associated attestation - Ean Mckeon MD - 11/06/2020 12:00 PM EDT I personally performed a face to face diagnostic evaluation on this patient. I agree with the findings and plan of care as documented by the resident/SECONDARY SCHOOL PRINCIPAL/ENVIRONMENTAL COMPLIANCE MANAGER/PA, unless otherwise noted. Ean Mckeon MD Chest xray at bedside Pt arrived to PACU from OR. Pt ID verified. Monitors applied with alarms on. Vital signs stable. documented [facility] this encounter [facility] Hospital Discharge instructions 11-06-2020 Instructions Note Date & Type Note Facility 11-06-2020 Hospital Discharg e instructions Rajni Hwang MD - 11/06/2020 Images from the original note were not included. [facility]: Cardiothoracic Surgery [address] [facility] (T): #[phone] (F): #[phone] After lung surgery, it is common to feel tired up to 6 to 8 weeks. Your chest may hurt and or be swollen for up to 6 weeks. It can also ache or feel stiff for up to 3 months. It is not uncommon to have tightness, itching, numbness, or tingling around the incision for up to 3 months. You may feel short of breath at first after the surgery. It is important to continue the deep-breathing and coughing exercises that you were taught in the hospital at home during your recovery. This helps your body get as much oxygen as possible. The amount of time you will need to recover depends on the surgery you had. You probably will need to take at least 1 to 2 months off work dependent on the work you do. Your Recovery: Activity, Diet, Incisional Care and Exercise Rest when you feel tired. Getting enough sleep will help you recover. Try to walk each day. Start by walking a little more than you did the day before, increasing the amount you walk. Walking boosts blood flow and helps prevent pneumonia and constipation. Do not smoke or allow others to smoke around you. If you need help quitting, talk to your provider about stop-smoking programs and medicines. These can increase your chances of quitting for good. Try to avoid being around people who you know have a cold, the flu, or other illness. Avoid strenuous activities, such as bicycle riding, jogging, weight lifting, or aerobic exercise for at least 4 weeks. Also avoid swimming, tennis, golf, or other activities that could strain your arm and shoulder muscles, during this time. Initial weight restriction is 10lbs for 2 weeks, avoid lifting anything that would make you strain. This may include a child, heavy grocery bags and milk containers, a heavy briefcase or backpack, cat litter or dog food bags, or a vacuum sewer pipe cleaner. If your incision is in the front or the side of your chest, hold a pillow over the incision when you cough or take deep breaths. This will support your chest and decrease your pain. No driving for 2 weeks. This is because your arm and shoulder muscles may be stiff after surgery and could make it difficult to steer. You must also be off all narcotic and sedative medications prior to returning to driving. Ok to shower. Avoid any baths or hot-tubs for 3 weeks. Wash you incision daily with warm, soapy water, and pat it dry. Do not scrub your incision(s). Do not apply any lotions or powders, hydrogen peroxide or alcohol on your incision(s). You may cover the area with a gauze bandage if it weeps or rubs against your clothing. Keep the area clean and dry. Diet: You can eat your normal diet. If your stomach is upset, try bland, low-fat foods like plain rice, broiled chicken, toast, and yogurt. Drink plenty of fluids. You may notice that your bowel movements are not regular right after your surgery. This is common. Try to avoid constipation and straining with bowel movements. You may take an over the counter stool softener as needed. If your incision has jamari, these will be removed at your follow-up visit 10-14 days with your provider. Also, sutures from drains/tubes will be removed at this time. Continue to follow discharge stretching exercises outlined below. Start each exercise slowly. Ease off the exercises if you start to have pain. Shoulder Stretch 1. director of nuclear medicine a doorway and place one arm against the door frame. Your elbow should be a little higher than your shoulder. 2. Relax your shoulders as you lean forward, allowing your chest and shoulder muscles to stretch. You can also turn your body slightly away from your arm to stretch the muscles even more. 3. Hold for 15 to 30 seconds. 4. Repeat 2 to 4 times with each arm. Shoulder and Chest Stretch 1. While sitting, relax your upper body so you slump slightly in your chair. 2. As you breathe in, straighten your back and open your arms out to the sides. 3. Gently pull your shoulder blades back and downward. 4. Hold for 15 to 30 seconds as your breathe normally. 5. Repeat 2 to 4 times. Overhead stretch 1. Reach up over your head with both arms. 2. Hold for 15 to 30 seconds. 3. Repeat 2 to 4 times. Acute post operative pain management: -Continue to use narcotic/opioid analgesic medication prescribed on discharge from the hospital. If you are prescribed oxycodone/acetaminophen (Percocet) or hydrocodone/acetaminophen ([place]/Vicodin) be cautious when taking additional tylenol. No driving or operating heavy machinery while taking a narcotic/opioid analgesic medication. -Tylenol (acetaminophen) 500 mg 1-2 tablets every 6 hours. No more than 4 grams in 24 hour period. Tylenol is not recommended with liver disorders. -Motrin (ibuprofen) 200-400 mg by mouth every 4-6 hours (or) 600-800mg every 8 hours as needed if not contraindicated. Ibuprofen is not recommended with renal disorders or if you are taking Warfarin (coumadin/jantoven). Maximum dose 3,200 mg per day. -Over the counter pain patches called Salon pas may used as needed next to incision but not on your incision. -Ice packs applied for 20 minutes then off for at least 20 minutes before reapplying. Call your Surgeon or return to the Emergency Room if you experience: -New or increased pain. -New or increased bleeding. -Nausea & vomiting. -Fever & chills. -Shortness of breath. -Chest pain. -Abdominal distention. documented in this encounter [facility] Work Phone: Evaluation note Note Date & Type Note Facility documented in this encounter [facility] Work Phone: Summary Purpose Family History No Family History Records FoundNo Family History Records FoundNo Family History Records FoundThere may be information available, but it has not been provided by the sender.No Family History Records FoundNo Family History Records Found Advance Directives No Advanced Directives Records FoundDocuments on File Type Date Recorded Patient Process Steward Expl anation ACP-Advance Directive 11/02/2020 12:00 AM Latest Code Status on File Code Status Date Activated Date Inactivated Comments Full Code 11/05/2020 7:12 PM Full Code 11/05/2020 8:45 AM 11/05/2020 6:57 PM Chief Complaint Chief Complaint Description Start Date right hand post Carpometacar pal interpositional arthroplasty with ligament reconstruction right thumb flexor carpi radialis tendon transfer and partial trapezoid resection on 10/29/2018 Preliminary chief co mplaint data, not yet signed by the author as of Instructions Instruction Description Start Date Completed Assessments There may be information available, but it has not been provided by the sender. Review of System There may be information available, but it has not been provided by the sender. History of Present Illness There may be information available, but it has not been provided by the sender. Additional Source Comments INFORMATION SOURCE (unrecogn ized section and content) DATE CREATED AUTHOR AUTHOR'S ORGANIZ ATION 01/31/2020 [facility] ([place]) DATE CREATED AUTHOR AUTHOR'S ORGANIZ ATION 08/28/2020 [facility] DATE CREATED AUTHOR AUTHOR'S ORGANIZ ATION 12/11/2020 [facility] DATE CREATED AUTHOR AUTHOR'S ORGANIZ ATION 06/28/2022 [facility] Reason for Visit (unrecogniz ed section and content) Ordered Prescriptions (unrec ognized section and content) FOR RECORDS PERTAINING TO PATIENTS WHO ARE OR HAVE BEEN ENROLLED IN A CHEMICAL DEPENDENCY/SUBSTANCEABUSE PROGRAM, SOME INFORMATION MAY BE OMITTED. This clinical summary was aggregated from multiple sources. Caution should be exercised in using it in the provision of clinical care. This summary normalizes information from multiple sources, and as a consequence, information in this document may materially change the coding, format and clinical context of patient data. In addition, data may be omitted in some cases. CLINICAL DECISIONS SHOULD BE BASED ON THE PRIMARY CLINICAL RECORDS. [facility] [employer] [facility]. provides no warranty or guarantee of the accuracy or completeness of information in this document.
--- NOTE | 2023-08-03 10:21 | PCM.PSN.6M ---
PSN 6 Minute Walk Test 6 Minute Walk Test 6 Minute Walk Test: 6 Minute Walk Test PSN:6-Minute Walk Test Start: 08/01/23 10:49 Freq: Status: Active Protocol: RESP.6MINW Document 08/01/23 08:15 EW (Rec: 08/01/23 10:51 EW Desktop) 6 Minute Walk Test Date Performed 08/01/23 Time Performed 08:15 Height 5 ft 6 in Weight: 140 lb Weight in Pounds 140.[address]: Lon Berrios Assistive device used: None Pre-test Oxygen Delivery Method Room Air Pulse Ox 96 Pulse Rate (60-100) 106 H Dyspnea Fariha Scale (0-10) 0 Exertion Fariha Scale (6-20) 6 1st minute Oxygen Delivery Method Room Air Pulse Ox 97 Pulse Rate (60-100) 127 H 2nd minute Oxygen Delivery Method Room Air Pulse Ox 93 Pulse Rate (60-100) 127 H 3rd minute Oxygen Delivery Method Room Air Pulse Ox 93 Pulse Rate (60-100) 144 H 4th minute Oxygen Delivery Method Room Air Pulse Ox 94 Pulse Rate (60-100) 125 H 5th minute Oxygen Delivery Method Room Air Pulse Ox 94 Pulse Rate (60-100) 137 H 6th minute Oxygen Delivery Method Room Air Pulse Ox 94 Pulse Rate (60-100) 150 H Post-test Oxygen Delivery Method Room Air Pulse Ox 99 Pulse Rate (60-100) 116 H Dyspnea Fariha Scale (0-10) 2 Exertion Fariha Scale (6-20) 8 Full Laps Walked 23 Partial Lap, Number of Tiles Walked 0 Total Distance Walked (ft) 1357 Interpretation Interpretation: The patient ambulated 1357 feet over the course of 6 minutes beginning on room air without assistive devices. Pretesting oxygen saturation was noted to be 96% on room air. With ambulation, the ilene oxygen saturation was 93%. There was no significant exertional oxygen desaturation. Recommendations Recommendations: There is no indication for the use of supplemental oxygen at this time.
== END | disposition home or self-care (01) ==
LOC: PSN 08:18
PROVIDERS: PCP Family Medicine; Referring Provider Internal Medicine Critical Care Medicine; Visit Provider Internal Medicine Critical Care Medicine
DX: J45.909 Unspecified asthma, uncomplicated (principal)
CPT/HCPCS: 94618

== ENCOUNTER → 2023-08-14 | Outpatient (CLI) | payer MEDICARE, OTHER, SELFPAY ==
--- OUTSIDE RECORDS SUMMARY | 2023-08-14 08:41 | XMS RPT_ITS | CCD ---
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 therapy; Translations: [OTH CARE HOME CURRENT DRUG THERAPY] Onset: 06-17-2020 Episodic Other [...] 97.81 [degF] Ean Mckeon MD Work Phone: [facility] Work Phone: 11-09-2020 04:56-0400 Diastolic blood pressure 79 mm[Hg] Ean Mckeon MD Work Phone: [employer] Work Phone: 11-09-2020 04:56-0400 Heart rate 82 /min Ean Mckeon MD Work Phone: [facility] Work Phone: 11-09-2020 04:56-0400 Respiratory rate 12 /min Ean Mckeon MD Work Phone: [facility] Work Phone: 11-09-2020 04:56-0400 SaO2% (BldA) [Mass fraction] 96 % Ean Mckeon MD Work Phone: [employer] Work Phone: 11-09-2020 04:56-0400 Systolic blood pressure 110 mm[Hg] Ean Mckeon MD Work Phone: [facility] Work Phone: 11-06-2020 00:00-0400 Body mass index (BMI) [Ratio] 24.1 kg/m2 Ean Mckeon MD Work Phone: [facility] Work Phone: 11-06-2020 00:00-0400 Body weight 65.7 kg Ean Mckeon MD Work Phone: [facility] Work Phone: 11-05-2020 23:17-0400 Body height 165.1 cm Ean Mckeon MD Work Phone: [facility] Work Phone: NEGATED: Highlighted [id number] 11:46-0400 BMI (Body Mass Index) 24.29 kg/m2 Estrellita Anderson AT [facility] Work Phone: NEGATED: Highlighted [id number] 11:46-0400 Body weight 63.96 kg Estrellita Anderson AT [facility] Work Phone: NEGATED: Highlighted [id number] 11:46-0400 Body weight 64 kg Estrellita Anderson AT [facility] Work Phone: NEGATED: Highlighted [id number] 11:46-0400 BP Diastolic 70 mm[Hg] Estrellita Anderson AT [facility] Work Phone: NEGATED: Highlighted [id number] 11:46-0400 BP Systolic 102 mm[Hg] Estrellita Anderson AT [facility] Work Phone: NEGATED: Highlighted [id number] 11:46-0400 Height 162.56 cm Estrellita Anderson AT [facility] Work Phone: NEGATED: Highlighted [id number] 11:46-0400 Height 163 cm Estrellita Anderson AT [facility] Work Phone: NEGATED: Highlighted [id number] 11:46-0400 Pulse (Heart Rate) 80 /min Estrellita Anderson AT [facility] Work Phone: Encounters Encounter Date [...] normal parameters - no follow-up required Rocky Mratin MD Work Phone: Start: 02-05-2019 End: 02-05-2019 [...] Office Visit Cardiothoracic Surgery Miladys, Bobby Woody, CASE MGR - DRILLING CONTRACTOR [address] [place] [address] [phone] [facility] Start: 10-14-2020 Annual Wellness Visit (AWV) Annual Wellness Visit (AWV) [facility] Work Phone: Start: 02-05-2019 End: 02-05-2019 Appointment Appointment [facility] Work Phone: Start: 2007 Pneumococcal [...] ( and others) FOR LIFE MEDICARE SUPP [id number] 2020-Present C/O PGBA/ [address] [place] [address] [id number] 1959 [employer] ( and others) [id number] 1957 Medicare [id number] 1940 Unknown [id number] Social History Date Type Detail Facility Start: 02-05-2019 End: 02-05-2019 Assertion Unknown if ever smoked [facility] Work Phone: Start: 11-06-2020 Tobacco smoking stat [facility] Never smoker [facility] Work Phone: Start: 11-06-2020 Tobacco use and exposure Never used [facility] Start: 11-06-2020 Alcohol intake Ex-drinker (finding) [facility] Work Phone: Start: 10-14-2020 Alcohol Comment 3-4 X week a g lass of wine [facility] Work Phone: Sex Assigned At Not on file [facility] Work Phone: Exposure to SARS-CoV -2 (event) Not sure [facility] Discharge summary note 11-09-2020 Note Date & Type Note Facility 11-09-2020 Note Discharge Summary: C ardiothoracic Surgery Jyoti Fair :1940 AGE: 80 y.o. ADMIT DATE: 11/05/2020 DISCHARGE DATE: 11/09/2020 DISCHARGING SURGEON: Ean Mckeon MD, Office Number: [phone] PRIMARY CARE PHYSICIAN: DANIELLE PAIGE VISIT STATUS: [...] DISCHARGE MEDICATIONS: Jyoti Fair Home Medication Instructions LC:[id number] Printed on:11/09/20 8106 Medication Information ALBUTEROL SULFATE IN Inhale into [...] SIGNED: Rajni Hwang MD 11/09/2020, 2:38 PM [facility] History of Present illness Narrative 11-09-2020 Rajni Hwang MD - 11/09/2020 7:51 AM Grisel Diggs APRN - DRILLING CONTRACTOR - 11/08/2020 11:03 AM Rajni Huerta MD [...] This note may have been dictated using [employer] Practice Edition 2.6 and/or TranSiC Voice Recognition Feature. The document was proofread; however, unrecognized voice recognition collision repairer errors may be present. Associated attestation - Ean Mckeon MD - 11/09/2020 12:49 PM EDT I personally performed a face to face diagnostic evaluation on this patient. I agree with the findings and plan of care as documented by the resident/BELL ATTENDANT/FARM CREW MEMBER/PA, unless otherwise noted. Ean Mckeon MD PAGING: The Acute Pain Service providers are available via [employer]. Please reference Outlisten for Pain Management Provider TELEPHONE ANSWERING SERVICE OPERATOR and direct all questions to the provider listed. Due to the current environment of [place] [address], PPE was worn for the duration of all face to face encounters including but not limited to an N95 in accordance with [facility] and hospital guidelines. 11/08/2020 Referring Physician: Ean [...] Hcl 5 MG Tablet 60.00 8 [facility] [id number] Rit (0102) 0 56.25 MME Objective Findings: [...] Acute Pain Service providers are available via [employer]. Please reference Outlisten for Pain Management Provider TELEPHONE ANSWERING SERVICE OPERATOR and direct all questions to the provider [...] - DVT PPx - D/w Dr. Scott, components engineer for Dr. Mckeon Disclaimers: INFORMED CONSENT: The [...] This note may have been dictated using Comp[employer] Medical Practice Edition 2.6 and/or TranSiC Voice Recognition Feature. The document was proofread; however, unrecognized voice recognition collision repairer errors may be present. Associated attestation - Luis M Scott MD - 11/08/2020 10:36 AM EDT I independently saw and evaluated the patient - including reviewing the labs, imaging studies, and available documentation. I agree with the findings and plan of care as documented by the resident/BELL ATTENDANT/FARM CREW MEMBER/PA, unless otherwise noted. Please do not hesitate [...] PGY1 Pager [phone] 11/08/2020 12:26 AM Pts property assessment monitor alarming with heart rate in the [...] be monitored and followed by the diet multi craft maintenance technician. Images from the original note were not included. Cardiothoracic Surgery Progress Note 11/07/2020 10:03 AM Subjective: Admit Date: 11/05/2020 PCP: DANIELLE PAIGE Interval History: 11/05 R thoracotomy, RUL resection, lymphadenectomy Subjective: No acute events overnight Pain controlled on ZIGZAG ELASTIC ATTACHER No nausea/vomiting, fevers, or chills Non-labored breathing [...] 24.10 kg/m I/O: Date 11/07/20 - 11/07/20 2355 Shift 6629-3998 9701-0457 7032-4624 24 Hour Total INTAKE Shift Total(mL/kg) OUTPUT [...] dc home tomorrow - D/w Dr. Scott, components engineer for Dr. Mckeon Disclaimers: INFORMED CONSENT: The [...] This note may have been dictated using [employer]te Practice Edition 2.6 and/or TranSiC Voice Recognition Feature. The document was proofread; however, unrecognized voice recognition collision repairer errors may be present. Associated attestation - Luis M Scott MD - 11/07/2020 10:33 AM EDT I independently saw and evaluated the patient - including reviewing the labs, imaging studies, and available documentation. I agree with the findings and plan of care as documented by the resident/BELL ATTENDANT/FARM CREW MEMBER/PA, unless otherwise noted. Please do not hesitate to contact me/us if you have any questions or concerns. Luis M Scott MD FACS PAGING: The Acute Pain Service providers are available via [employer]. Please reference Outlisten for Pain Management Provider TELEPHONE ANSWERING SERVICE OPERATOR and direct all questions to the provider listed. Due to the current environment of [place] [address], PPE was worn for the duration of all face to face encounters including but not limited to an N95 in accordance with [facility] and hospital guidelines. 11/07/2020 Referring Physician: Ean [...] pain regimen, but would like to discontinue ZIGZAG ELASTIC ATTACHER today. Tolerating diet, denies n/v. Patient educated [...] Hcl 5 MG Tablet 60.00 8 [facility] [id number] Rit (0102) 0 56.25 MME Objective Findings: [...] lymphadenectomy on 11/05. PO regimen today Discontinue ZIGZAG ELASTIC ATTACHER, start PO regimen today, pt agreeable. Oxycodone [...] Acute Pain Service providers are available via [employer]. Please reference Outlisten for Pain Management Provider TELEPHONE ANSWERING SERVICE OPERATOR and direct all questions to the provider listed. Images from the original note were not included. Cardiothoracic Surgery Progress Note 11/06/2020 5:42 AM Subjective: Admit Date: 11/05/2020 PCP: DANIELLE PAIGE Interval History: 11/05 R thoracotomy, RUL resection, lymphadenectomy Subjective: No acute events overnight Pain controlled on ZIGZAG ELASTIC ATTACHER No nausea/vomiting, fevers, or chills Non-labored breathing [...] I/O: Date 11/06/20 - 11/06/20 235 Shift [id number] 3907-1396 1433-2683 24 Hour Total INTAKE P.O.(mL/kg/hr) 240 240 [...] This note may have been dictated using Humacyte Practice Edition 2.6 and/or TranSiC Voice Recognition Feature. The document was proofread; however, unrecognized voice recognition collision repairer errors may be present. Associated attestation - Ean Mckeon MD - 11/06/2020 12:00 PM EDT I personally performed a face to face diagnostic evaluation on this patient. I agree with the findings and plan of care as documented by the resident/BELL ATTENDANT/FARM CREW MEMBER/PA, unless otherwise noted. Ean Mckeon MD Chest xray at bedside Pt arrived to PACU from OR. Pt ID verified. Monitors applied with alarms on. Vital signs stable. documented in this encounter [facility]: Hospital Discharge instructions 11-06-2020 Instructions Note Date & Type Note Facility 11-06-2020 Hospital Discharg e instructions Rajni Hwang MD - 11/06/2020 Images from the original note were not included. [facility]: Cardiothoracic Surgery [address] Critical access hospital (T): #[phone] (F): #[phone] After lung surgery, it is common to [...] or dog food bags, or a vacuum septic tank cleaner. If your incision is in the [...] start to have pain. Shoulder Stretch 1. edger liner a doorway and place one arm against [...] you are prescribed oxycodone/acetaminophen (Percocet) or hydrocodone/acetaminophen ([place]/Vicodin) be cautious when taking additional tylenol. No [...] FoundDocuments on File Type Date Recorded Patient Maternal Fetal Physician Expl anation ACP-Advance Directive 11/02/2020 12:00 AM [...] DATE CREATED AUTHOR AUTHOR'S ORGANIZ ATION 01/31/2020 [facility] ([place]) DATE CREATED AUTHOR AUTHOR'S ORGANIZ ATION 08/28/2020 [facility] DATE CREATED AUTHOR AUTHOR'S ORGANIZ ATION 12/11/2020 [facility] tem DATE CREATED AUTHOR AUTHOR'S ORGANIZ ATION 06/28/2022 [facility] Reason for Visit (unrecogniz ed section [...] BE BASED ON THE PRIMARY CLINICAL RECORDS. [facility]. provides no warranty or guarantee of the accuracy or completeness of information in this document.
== END | disposition home or self-care (01) ==
LOC: PSN 08:18
PROVIDERS: PCP Family Medicine; Referring Provider Family Medicine; Visit Provider Family Medicine
DX: R00.0 Tachycardia, unspecified (principal)
CPT/HCPCS: 93225; 93226

== ENCOUNTER → 2023-10-04 | Outpatient (CLI) | payer MEDICARE, OTHER, SELFPAY ==
[2023-10-04 16:10] LABS: Absolute Lymphocyte Count 1.43 X10^3/uL (0.83-4.51); Absolute Neutrophil Count 4.5 X10^3/uL (2.0-7.7); Basophil# 0.05 X10^3/uL; Basophil% 0.7 % (0-1); Eosinophil# 0.17 X10^3/uL; Eosinophils% 2.5 % (0-5); Hematocrit 35.4 % (37-47); Hemoglobin 11.4 g/dL (12.0-15.0); Lymphocyte # 1.43 X10^3/ul (0.83-4.51); Lymphocyte % 21.2 % (19-41); Mean Corp Hgb Conc 32.2 g/dL (32-36); Mean Corpuscular Hgb 31.1 pg (27.0-32.0); Mean Corpuscular Volume 96.7 fL (81-99); Mean Platelet Vol. 9.6 fl (6.2-12.0); Monocyte# 0.55 X10^3/uL; Monocyte% 8.1 % (0-10); NRBC Flagged by Analyzer 0 % (0-5); Neutrophil # 4.53 X10^3/uL (2.7-7.7); Neutrophil % 67.1 % (47-70); Platelet Count 285 K/mm3 (150-450); RBC Distribution Width CV 14.5 % (11.6-14.6); RBC Distribution Width SD 51.5 fl (35.1-43.9); Red Blood Count 3.66 M/mm3 (4.2-5.4); White Blood Count 6.8 K/mm3 (4.4-11.0)
[2023-10-04 16:39] LABS: Anion Gap 6 (5-15); BUN 23 mg/dL (7-18); BUN/Creat Ratio 25.2 RATIO (10-20); Calcium,Total 8.9 mg/dL (8.5-10.1); Chloride 111 mmol/L (98-107); Creatinine, Serum 0.91 mg/dL (0.55-1.02); EST Glomerular Filtration Rate 63 mL/min (>60); Est Glom Filt Rate - Afr Amer 76 mL/min (>60); Glucose 90 mg/dL (74-106); Potassium 4.1 mmol/L (3.5-5.1); Sodium Level 142 mmol/L (136-145); Thyroid Stim Hormone (TSH) 2.72 uIU/mL (0.358-3.74)
== END | disposition home or self-care (01) ==
LOC: LAB 14:49
PROVIDERS: PCP Family Medicine; Referring Provider Internal Medicine Cardiovascular Disease; Visit Provider Internal Medicine Cardiovascular Disease
DX: R06.02 Shortness of breath (principal); R00.0 Tachycardia, unspecified; Z96.651 Presence of right artificial knee joint
CPT/HCPCS: 36415; 80048; 83880; 84443; 85025

== ENCOUNTER → 2023-10-17 | Outpatient (CLI) | payer MEDICARE, OTHER, SELFPAY ==
[2023-10-17 10:06] LABS: ALB/GLOB Ratio 1.2 RATIO (0.9-2.4); AST(SGOT) 38 U/L (15-37); Alanine Aminotransfer ALT/SGPT 25 U/L (13-56); Albumin, Serum 3.8 g/dL (3.2-5.0); Alkaline Phosphatase 48 U/L (45-117); Anion Gap 7 (5-15); BUN 32 mg/dL (7-18); BUN/Creat Ratio 17.9 RATIO (10-20); Calcium,Total 9.3 mg/dL (8.5-10.1); Chloride 107 mmol/L (98-107); Creatinine, Serum 1.79 mg/dL (0.55-1.02); EST Glomerular Filtration Rate 29 mL/min (>60); Est Glom Filt Rate - Afr Amer 35 mL/min (>60); Globulin 3.2 g/dL (2.2-4.2); Glucose 69 mg/dL (74-106); Potassium 4.2 mmol/L (3.5-5.1); Sodium Level 140 mmol/L (136-145)
[2023-10-17 10:17] LABS: BNP,B-Type NATRIURETIC PEPTIDE 56.6 pg/mL (0-100)
== END | disposition home or self-care (01) ==
LOC: LAB 09:21
PROVIDERS: PCP Family Medicine; Referring Provider Family Medicine; Visit Provider Family Medicine
DX: I50.33 Acute on chronic diastolic (congestive) heart failure (principal); Z51.81 Encounter for therapeutic drug level monitoring
CPT/HCPCS: 36415; 80053; 83880

== ENCOUNTER 2023-10-20 10:06 | Outpatient (CLI) | payer MEDICARE, OTHER, SELFPAY ==
[2023-10-20 10:13] VITALS: BP 101/66; PULSE 76; RESP 16; TEMP 36.1; O2SAT 98; BMI 23.3
[2023-10-20] MEDS: DENOSUMAB 60 MG/ML SC (10:16)
== END 2023-10-20 10:07 | disposition home or self-care (01) ==
LOC: MEDOUTP 10:07
PROVIDERS: PCP Family Medicine; Referring Provider Family Medicine; Visit Provider Family Medicine
DX: M81.0 Age-related osteoporosis without current pathological fracture (principal)
CPT/HCPCS: 96372; J0897

== ENCOUNTER → 2023-11-02 | Outpatient (CLI) | payer MEDICARE, OTHER, SELFPAY ==
[2023-11-02 16:00] LABS: ALB/GLOB Ratio 1.1 RATIO (0.9-2.4); AST(SGOT) 39 U/L (15-37); Alanine Aminotransfer ALT/SGPT 29 U/L (13-56); Albumin, Serum 3.4 g/dL (3.2-5.0); Alkaline Phosphatase 47 U/L (45-117); Anion Gap 6 (5-15); BUN 21 mg/dL (7-18); BUN/Creat Ratio 20.8 RATIO (10-20); Calcium,Total 8.6 mg/dL (8.5-10.1); Chloride 108 mmol/L (98-107); Creatinine, Serum 1.01 mg/dL (0.55-1.02); EST Glomerular Filtration Rate 56 mL/min (>60); Est Glom Filt Rate - Afr Amer 68 mL/min (>60); Globulin 3.2 g/dL (2.2-4.2); Glucose 75 mg/dL (74-106); Potassium 4.2 mmol/L (3.5-5.1); Protein, Total 6.6 g/dL (6.4-8.2); Sodium Level 139 mmol/L (136-145)
== END | disposition home or self-care (01) ==
LOC: LAB.FUTURE 13:20
PROVIDERS: PCP Family Medicine; Visit Provider Family Medicine
DX: Z51.81 Encounter for therapeutic drug level monitoring (principal)
CPT/HCPCS: 36415; 80053

== ENCOUNTER → 2023-11-03 | Outpatient (CLI) | payer MEDICARE, OTHER, SELFPAY ==
--- NOTE | 2023-11-03 12:50 | ECHOD_ITS ---
Reason For Study: DYSPNEA Procedure This was a 2D Doppler, Color Flow transthoracic echocardiogram. Exam performed in department. Left Ventricle Normal LV size. Left ventricular systolic function is normal. The estimated ejection fraction is 60 %. Stage 1 diastolic dysfunction. No regional wall motion abnormalities noted. Right Ventricle Normal RV size. Normal systolic function. Atria Normal left atrium. Normal right atrium. Mitral Valve Normal mitral valve. Tricuspid Valve Normal tricuspid valve. Mild tricuspid valve insufficiency. Pulmonary artery systolic pressure is 28 mmHg. Aortic Valve Trisinus/trileaflet aortic valve. Pulmonic Valve Normal pulmonic valve. Great Vessels Normal aortic root. The pulmonary artery is normal size. Normal inferior vena cava. Pericardium/Pleural No pericardial effusion. MMode/2D Measurements & Calculations LVIDd: 4.4 cm IVSd: 1.2 cm LAV(MOD-bp): 33.5 ml LVIDs: 2.4 cm LVPWd: 0.94 cm LAV(MOD-bp) Indexed: 19.7 ml/m2 FS: 45.0 % LAV(MOD-sp2): 36.8 ml LAV(MOD-sp4): 28.9 ml SV(MOD-sp4): 30.6 ml SV(sp4-el): 32.5 ml LVAd ap4: 20.8 cm2 LVLd ap4: 7.1 cm EDV(MOD-sp4): 50.0 ml EDV(sp4-el): 51.8 ml LVAs ap4: 11.2 cm2 LVLs ap4: 5.5 cm ESV(MOD-sp4): 19.4 ml ESV(sp4-el): 19.2 ml EF(MOD-sp4): 61.2 % EF(sp4-el): 62.9 % LA A4 area: 12.9 cm2 LA dimension(2D): 3.2 cm RA A4 area: 9.1 cm2 TAPSE: 2.3 cm Time Measurements MV dec time: 0.20 sec Doppler Measurements & Calculations MV E max greg: 69.4 cm/sec Lat Peak E' Greg: 8.4 cm/sec Med Peak E' Greg: 7.3 cm/sec MV A max greg: 86.1 cm/sec E/E' lat: 8.3 E/E' med: 9.6 MV E/A: 0.81 MV V2 max: 90.2 cm/sec Ao V2 max: 107.7 cm/sec MV max P.3 mmHg MV dec slope: 340.5 cm/sec2 Ao max P.6 mmHg MV V2 mean: 57.4 cm/sec Ao V2 mean: 77.3 cm/sec MV mean P.5 mmHg Ao mean P.7 mmHg MV V2 VTI: 20.7 cm Ao V2 VTI: 21.0 cm AV (velocity ratio): 0.86 LV V1 max: 90.6 cm/sec TR max greg: 241.9 cm/sec LV V1 max P.3 mmHg TR max P.4 mmHg LV V1 mean P.5 mmHg LV V1 mean: 57.4 cm/sec LV V1 VTI: 18.1 cm ECHO/Echo Complete Interpretation Summary Normal LV size. Left ventricular systolic function is normal. The estimated ejection fraction is 60 %. Stage 1 diastolic dysfunction. Pulmonary artery systolic pressure is 28 mmHg. Ordering Physician: Melvin Mcclelland Referring Physician: Melvin Mcclelland Performed By: Julianne Murphy RCS
== END | disposition home or self-care (01) ==
LOC: CVS 12:49
PROVIDERS: PCP Family Medicine; Referring Provider Internal Medicine Cardiovascular Disease; Visit Provider Internal Medicine Cardiovascular Disease
DX: Z98.890 Other specified postprocedural states (principal)
CPT/HCPCS: 93306

== ENCOUNTER → 2023-11-16 | Outpatient (CLI) | payer MEDICARE, OTHER, SELFPAY ==
--- NOTE | 2023-11-16 20:24 | STRESSREP ---
Stress Test Report Exercise myocardial perfusion stress test. 83-year-old lady with a history of chest pain and dyspnea Stress protocol: Resting EKG demonstrates normal sinus rhythm with a rate of 70 bpm resting blood pressure is 110/70 mmHg. The patient exercised according to the regular [facility] protocol for a total duration of 3 minutes attaining a maximum heart rate of 150 bpm which was 110% of maximum predicted heart rate; the maximum workload was 4.6 metabolic equivalents. At rest there were no ST or T wave changes noted to suggest ischemia and at peak exercise upsloping ST changes only were noted which did not meet the criteria for ischemia. No clinical angina was noted the test was terminated due to the target heart rate being achieved/fatigue. The peak blood pressure was 138/60 mmHg. Rate-pressure product was 112/62. Myocardial perfusion protocol. 11 point mCi of technetium 99m sestamibi was injected at rest. The patient exercised according to regular [facility] protocol for total duration of 3 minutes and at peak exercise 32.4 mCi of technetium 99m sestamibi was injected stress images were obtained stress and rest images were reconstructed in comparing the short axis vertical long and horizontal long axis. Gated images were also obtained. Perfusion SPECT analysis: Review of the stress images demonstrate normal uptake of tracer noted in all areas of the myocardium. The resting images similarly demonstrate normal uptake of tracer noted in all areas of the myocardium. No areas of reversibility are noted to suggest ischemia no previous infarct was noted. Gated SPECT analysis: The gated ejection fraction is 75%. Conclusion: Normal exercise myocardial perfusion stress test at a low workload, which may affect sensitivity for detection of ischemia. Preserved ejection fraction.
== END | disposition home or self-care (01) ==
LOC: CVS 06:00
PROVIDERS: PCP Family Medicine; Referring Provider Internal Medicine Cardiovascular Disease; Visit Provider Internal Medicine Cardiovascular Disease
DX: R06.02 Shortness of breath (principal)
CPT/HCPCS: 78452; 93017; A9500; A4216

== ENCOUNTER → 2024-01-09 | Outpatient (CLI) | payer MEDICARE, OTHER, SELFPAY ==
--- NOTE | 2024-01-09 10:36 | RAD_ITS ---
STUDY: X-RAY CHEST REASON FOR EXAM: Female, 83 years old. Chest pain. TECHNIQUE: Frontal and lateral views of the chest. COMPARISON: None. FINDINGS: Hyperinflation. Diffuse interstitial prominence. There is no demonstrated pleural abnormality. Cardiomegaly. Normal mediastinum and kieran. Normal visualized pulmonary arteries. Aortic tortuosity. Diffuse thoracic osteopenia with spondylosis. Normal visualized ribs, clavicles, and shoulders. No abnormality of the visualized soft tissue structures of the upper abdomen. RAD/Chest PA and Lateral IMPRESSION: Cardiomegaly with hyperinflation and diffuse mild interstitial prominence. No active or acute cardiopulmonary disease. Electronically Signed: Rocky Zee MD at 10:29 EDT ,
== END | disposition home or self-care (01) ==
LOC: MTRAD 10:26
PROVIDERS: PCP Family Medicine; Referring Provider Nurse Practitioner Family; Visit Provider Nurse Practitioner Family
DX: R07.9 Chest pain, unspecified (principal)
CPT/HCPCS: 71046

== ENCOUNTER → 2024-01-24 | Outpatient (CLI) | payer MEDICARE, OTHER, SELFPAY ==
[2024-01-24 12:20] LABS: ALB/GLOB Ratio 0.9 RATIO (0.9-2.4); AST(SGOT) 29 U/L (15-37); Alanine Aminotransfer ALT/SGPT 30 U/L (13-56); Albumin, Serum 3.2 g/dL (3.2-5.0); Alkaline Phosphatase 60 U/L (45-117); Anion Gap 6 (5-15); BUN 26 mg/dL (7-18); BUN/Creat Ratio 22.2 RATIO (10-20); Calcium,Total 9.3 mg/dL (8.5-10.1); Chloride 104 mmol/L (98-107); Creatinine, Serum 1.17 mg/dL (0.55-1.02); EST Glomerular Filtration Rate 47 mL/min (>60); Est Glom Filt Rate - Afr Amer 57 mL/min (>60); Globulin 3.4 g/dL (2.2-4.2); Glucose 85 mg/dL (74-106); Potassium 4.5 mmol/L (3.5-5.1); Protein, Total 6.6 g/dL (6.4-8.2); Sodium Level 137 mmol/L (136-145)
[2024-01-24 12:21] LABS: Absolute Lymphocyte Count 1.67 X10^3/uL (0.83-4.51); Absolute Neutrophil Count 4.4 X10^3/uL (2.0-7.7); Basophil# 0.05 X10^3/uL; Basophil% 0.7 % (0-1); Eosinophils% 2.8 % (0-5); Hematocrit 36.1 % (37-47); Hemoglobin 11.5 g/dL (12.0-15.0); Lymphocyte # 1.67 X10^3/ul (0.83-4.51); Lymphocyte % 23.3 % (19-41); Mean Corp Hgb Conc 31.9 g/dL (32-36); Mean Corpuscular Hgb 31.7 pg (27.0-32.0); Mean Corpuscular Volume 99.4 fL (81-99); Mean Platelet Vol. 8.9 fl (6.2-12.0); Monocyte# 0.76 X10^3/uL; Monocyte% 10.6 % (0-10); NRBC Flagged by Analyzer 0 % (0-5); Neutrophil # 4.44 X10^3/uL (2.7-7.7); Neutrophil % 61.9 % (47-70); Platelet Count 287 K/mm3 (150-450); RBC Distribution Width CV 14.2 % (11.6-14.6); RBC Distribution Width SD 51.8 fl (35.1-43.9); Red Blood Count 3.63 M/mm3 (4.2-5.4); White Blood Count 7.2 K/mm3 (4.4-11.0)
[2024-01-25 04:07] LABS: Carcinoembryonic Antigen 10.2 ng/mL (0.0-4.7)
== END | disposition home or self-care (01) ==
LOC: BFHLAB 10:25
PROVIDERS: PCP Family Medicine; Referring Provider Family Medicine; Visit Provider Family Medicine
DX: Z51.81 Encounter for therapeutic drug level monitoring (principal); C80.1 Malignant (primary) neoplasm, unspecified; R91.1 Solitary pulmonary nodule
CPT/HCPCS: 36415; 80053; 82378; 85025

== ENCOUNTER → 2024-01-26 | Outpatient (CLI) | payer MEDICARE, OTHER, SELFPAY ==
--- NOTE | 2024-01-26 07:51 | CT_ITS ---
STUDY: CT CHEST WITHOUT CONTRAST REASON FOR EXAM: Female, 83 years old. History of prior right upper lobectomy. One month history of cough. RADIATION DOSAGE (If Supplied By Facility): CTDIvol = ( 7.99 ) mGy, DLP = ( 309.36 ) mGycm TECHNIQUE: Transaxial imaging was performed without the administration of intravenous contrast material. Multiplanar coronal and sagittal images were reformatted. Individualized dose optimization techniques were used for this CT. COMPARISON: Comparison is made with prior study dated May 07, 2021 FINDINGS: CHEST The patient is status post right upper lobectomy. Stable emphysematous changes. Stable scarring in the right lower lobe as well as in the left lower lobe. Stable linear scarring in the right middle lobe adjacent to the fissure. There is no demonstrated pleural abnormality. There are calcifications of the coronary arteries. Normal mediastinum. Normal hilar regions. Normal unenhanced pulmonary arteries. There is atherosclerotic calcification of the aortic arch. There are multi-level degenerative changes of the thoracic spine. There is no demonstrated abnormality of the visualized upper abdomen. CT/Chest without Contrast IMPRESSION: Stable examination. The patient is status post right upper lobectomy with mild emphysematous changes and scarring. Electronically Signed: Quoc Martins MD at 9:30 EDT ,
== END | disposition home or self-care (01) ==
LOC: CT 07:50
PROVIDERS: PCP Family Medicine; Referring Provider Family Medicine; Visit Provider Family Medicine
DX: R07.89 Other chest pain (principal); Z85.118 Personal history of other malignant neoplasm of bronchus and lung
CPT/HCPCS: 71250

== ENCOUNTER 2024-02-22 10:30 | Outpatient (RCR) | payer MEDICARE, OTHER, SELFPAY ==
--- NOTE | 2024-02-22 10:56 | HP.PTDCSUM ---
Discharge Summary D/C summary: It has been my pleasure to treat MARGIE FULTON referred by Dr. Danielle Paige DO, with the diagnosis of R chest pain for a total of 3 visit(s). Discharge Date: 02/22/24 Please see the following information for a summary of their discharge status. Subjective Subjective: I am getting stronger, and my pain is less Pain R chest wall: Pain Intensity (Out of 10): 2 Overall Improvement % Improvement: 50 Objective Objective/Function: Pt jean all ex's well and is now I with HEP Goals Goal 1:: Pt will be I with HEP in 3 PT visits Goal Progress: Goal Met Goal 2:: Decrease R chest pain x 50% to aid with pt's ability to sneeze without limitation Plan Plan: Discharge to HEP D/C Information Discharge Comments: DC to HEP d/c sentence: If there are questions or concerns regarding this patient's physical therapy, please feel free to call me at [phone]. Thank you for the referral of this patient. Sincerely, [place], PT, ATC Balance/Gait/Functional tests Improvement % Improvement: 50
== END 2024-02-22 12:53 | disposition home or self-care (01) ==
LOC: PT 10:30
PROVIDERS: PCP Family Medicine; Referring Provider Family Medicine; Visit Provider Family Medicine
DX: R07.89 Other chest pain (principal)
CPT/HCPCS: 97110; 97161

== ENCOUNTER 2024-04-19 09:40 | Outpatient (CLI) | payer MEDICARE, OTHER, SELFPAY ==
[2024-04-19 10:15] VITALS: BP 114/64; PULSE 80; RESP 16; TEMP 36.2; O2SAT 94; BMI 23.3
[2024-04-19] MEDS: DENOSUMAB 60 MG/ML SC (10:17)
== END 2024-04-19 23:59 | disposition home or self-care (01) ==
LOC: MEDOUTP 09:40
PROVIDERS: PCP Family Medicine; Referring Provider Family Medicine; Visit Provider Family Medicine
DX: M81.0 Age-related osteoporosis without current pathological fracture (principal)
CPT/HCPCS: 96372; J0897

== ENCOUNTER → 2024-08-07 | Outpatient (CLI) | payer MEDICARE, OTHER, SELFPAY ==
[2024-08-07 12:35] LABS: Erythrocyte Sedimentation Rate 14 mm/hr (0-30)
[2024-08-07 12:39] LABS: Absolute Lymphocyte Count 1.21 X10^3/uL (0.83-4.51); Absolute Neutrophil Count 2.9 X10^3/uL (2.0-7.7); Basophil# 0.05 X10^3/uL; Eosinophil# 0.19 X10^3/uL; Eosinophils% 3.8 % (0-5); Hematocrit 40.2 % (37-47); Hemoglobin 12.6 g/dL (12.0-15.0); Lymphocyte # 1.21 X10^3/ul (0.83-4.51); Lymphocyte % 24.5 % (19-41); Mean Corp Hgb Conc 31.3 g/dL (32-36); Mean Corpuscular Hgb 30.1 pg (27.0-32.0); Mean Corpuscular Volume 95.9 fL (81-99); Monocyte# 0.54 X10^3/uL; Monocyte% 10.9 % (0-10); NRBC Flagged by Analyzer 0 % (0-5); Neutrophil # 2.93 X10^3/uL (2.7-7.7); Neutrophil % 59.4 % (47-70); Platelet Count 289 K/mm3 (150-450); RBC Distribution Width CV 14.7 % (11.6-14.6); Red Blood Count 4.19 M/mm3 (4.2-5.4); White Blood Count 4.9 K/mm3 (4.4-11.0)
[2024-08-07 13:20] LABS: AST(SGOT) 38 U/L (15-37); Alanine Aminotransfer ALT/SGPT 41 U/L (13-56); Albumin, Serum 3.3 g/dL (3.2-5.0); Alkaline Phosphatase 177 U/L (45-117); Anion Gap 6 (5-15); BUN 19 mg/dL (7-18); BUN/Creat Ratio 23.5 RATIO (10-20); CRP 9.19 mg/L (0.0-3.0); Calcium,Total 9.5 mg/dL (8.5-10.1); Chloride 106 mmol/L (98-107); Creatinine, Serum 0.81 mg/dL (0.55-1.02); EST Glomerular Filtration Rate 72 mL/min (>60); Est Glom Filt Rate - Afr Amer 87 mL/min (>60); Free T3 3.1 pg/mL (2.18-3.98); Globulin 3.4 g/dL (2.2-4.2); Glucose 87 mg/dL (74-106); Potassium 3.8 mmol/L (3.5-5.1); Protein, Total 6.7 g/dL (6.4-8.2); Rheumatoid Factor < 10.0 IU/mL (<15); Sodium Level 140 mmol/L (136-145); T4 Free Direct 0.57 ng/dL (0.76-1.46)
[2024-08-08 13:07] LABS: ANTINUCLEAR ANTIBODIES DIRECT Negative (Negative)
[2024-08-08 14:08] LABS: CCP IgG Antibodies 1 units (0-19)
== END | disposition home or self-care (01) ==
LOC: BFHLAB 09:07
PROVIDERS: PCP Family Medicine; Visit Provider Family Medicine
DX: M25.50 Pain in unspecified joint (principal); E03.9 Hypothyroidism, unspecified; Z51.81 Encounter for therapeutic drug level monitoring
CPT/HCPCS: 36415; 80053; 84439; 84443; 84481; 85025; 85652; 86038; 86140; 86200; 86225; 86431

== ENCOUNTER → 2024-09-23 | Outpatient (CLI) | payer MEDICARE, OTHER, SELFPAY ==
[2024-09-23 15:21] LABS: AST(SGOT) 28 U/L (<=31); Alanine Aminotransfer ALT/SGPT 21 U/L (<=34); Albumin, Serum 3.9 g/dL (3.4-4.8); Alkaline Phosphatase 131 U/L (35-104); Bilirubin, Direct 0.22 mg/dL (0.00-0.30); Globulin 2.6 g/dL (2.2-4.2); Protein, Total 6.4 g/dL (5.9-8.4); Total Bilirubin 0.44 mg/dL (0.00-1.30)
[2024-09-24 04:07] LABS: GGTP 85 IU/L (0-60)
== END | disposition home or self-care (01) ==
LOC: BFHLAB 09:37
PROVIDERS: Nurse Practitioner Acute Care; PCP Family Medicine; Referring Provider Internal Medicine Gastroenterology; Visit Provider Internal Medicine Gastroenterology
DX: R74.8 Abnormal levels of other serum enzymes (principal); R74.01 Elevation of levels of liver transaminase levels
CPT/HCPCS: 36415; 80076; 82977

== ENCOUNTER → 2024-09-24 | Outpatient (CLI) | payer MEDICARE, OTHER, SELFPAY ==
--- NOTE | 2024-09-25 10:46 | SP.MBSS_ITS ---
Modified Barium Swallow Patient Information Study Date: 09/24/24 Study Time: 13:30 Direct Billable Minutes: 79 Total Minutes procedure & reportin Diagnosis: Dysphaiga R13.10 Referring Physician: Savanna Gagnon Reason for Referral: Assess swallow function, assess risk for aspiration, and determine recommendations for least restrictive diet textures and compensatory strategies to improve safety of swallow. Medical History: Pt reports swallowing difficulty for >6months now, which is progressively getting worse. She reports coughing throughout the day sometimes w/o oral intake but also w/ foods and drinks. She has a sensitive oral cavity, which after thrush treatment and further evaluation by her physicians was diagnosed as Sjogren's Syndrome. She currently takes omeprazole to manage GERD. [employer] inspected oral cavity and pt has hard, bony-like protrusions in FOM. Current Diet Ordered: Regular textures / Thin liquids Dentition: Natural Teeth Mental Status: WNL Respiratory Status: Oxygenating on Room Air Penetration-Aspiration Scale Penetration-Aspiration Scale: OBJECTIVE ASSESSMENT OF SWALLOW FUNCTION (QUANTITATIVE ? PER TRIAL): PENETRATION / ASPIRATION SCALE (COOMBS): 1 = does not enter airway 2 = enters airway/above vocal folds/ejected 3 = enters airway/above vocal folds/not ejected 4 = enters airway/contacts vocal folds/ejected 5 = enters airway/contacts vocal folds/not ejected 6 = enters airway/below vocal folds/ejected 7 = enters airway/below vocal folds/not ejected despite effort 8 = enters airway/below vocal folds/no effort VIDEOFLOROSCOPIC SCALE SCORE (COOMBS): Grade I = aspiration of material that has penetrated into the laryngeal vestibule, intact cough reflex Grade II = aspiration < 10 % of the bolus, intact cough reflex Grade III = aspiration of < 10 % of the bolus, reduced cough reflex or aspiration of > 10 % of the bolus, intact cough reflex Grade IV = aspiration of > 10 % of the bolus, reduced cough reflex Penetration-Aspiration Scale Score Thin Liquid via teaspoon: Result: 1= does not enter airway Thin Liquid via teaspoon Trial 2: Result: 1= does not enter airway Thin Liquid via large single sip: cup: Result: 1= does not enter airway [place] Thick Liquid via large single sip: cup: Result: 1= does not enter airway Pudding via teaspoon: Result: 1= does not enter airway Comment: Esophageal screen - Retention of pudding in the middle esophagus. Thin Liquid via single sip: straw: Result: 1= does not enter airway Comment: Esophageal screen - little to no improvement in pudding retention. 1/2 cookie: Result: 1= does not enter airway Comment: Esophageal screen - Retention of cookie in the middle and lower esophagus w/ retrograde flow to the upper esophagus Thin Liquid via sequential sips:straw: Result: 1= does not enter airway Comment: Esophageal screen - Cookie retention somewhat improved w/ liquid washes. Sequential sips provided 2X to clear retention to lower esophagus, continued retrograde flow to middle esophagus. Oral Phase Labial Seal: No Labial Escape Tongue Control During Bolus Hold: Cohesive bolus between tongue to palatal seal Bolus Preparation/Mastication: Timely and efficient chewing and mashing Bolus Transport/Lingual Motion: Brisk tongue motion Oral Residue: Residue collection on oral structures Pharyngeal Phase Initiation of Pharyngeal Swallow: Bolus head in valleculae Soft Palate Elevation: No bolus between soft palate and pharyngeal wall Laryngeal Elevation: Comp. Superior move thyroid cart w/comp. apprx arytenoid cart-epig pet Anterior Hyoid Excursion: Complete anterior movement Epiglottic Movement: Complete inversion Laryngeal Vestibule Closure at Height of Swallow: Incomplete; narrow column of air/contrast in laryngeal vestibule (trace laryngeal penetration 1X w/ complete ejection) Pharyngeal Stripping Wave: Present - complete Pharyngoesophageal Segment Opening: Complete distension and complete duration; no obstruction of flow Tongue Base Retraction: Trace column of contrast between tongue base & post. pharyngeal wall Pharyngeal Residue: Trace residue within or on pharyngeal structures Esophageal Phase Esophageal Clearance: Esophageal retention w/ retrograde flow below pharyngoesophageal seg. Diagnosis/Impression Diagnosis: Esophageal dysphagia R13.14 Impression: Oropharyngeal swallow function grossly WNL. The esophageal phase is primarily marked by... -Retention of pudding in the middle esophagus, with little to no improvement w/ thin liquid wash. -Retention of cookie in the middle and lower esophagus w/ retrograde flow to the upper esophagus, which somewhat improved w/ liquid washes. Sequential sips provided 2X to clear retention to lower esophagus, continued retrograde flow to middle esophagus. Recommendations Diet: Soft and Bite Sized Textures and Thin Liquids Comment: Recommend seeking more nutrition/hydration via liquids prior to GI intervention as these had much better esophageal clearance. When selecting solids, would recommend moist and soft foods. STOP meal if increased s/s of reflux, sensation of retention, or regurgitation despite use of strategies listed below and resume meal at a later time. Compensatory Strategies: Small Bites, Small Sips, Slow Rate, Alternate bites/solids and sips/liquids (Take multiple sips after each bite) and Sitting upright (During and 60min after a meal) Recommend Repeat Modified Barium Swallow: No Need for Skilled Speech Therapy Services: No Recommended Referrals: GI Consult (Follow w/ GI to manage esophageal dysphagia. Pt is ok for esophagram planned later this week.), Dental Evaluation (Bony-like protrusions in FOM, would have dentist evaluate) and Dietitian Consult (10lbs of weight loss this year from swallowing problem. [employer] recommending increased nutrition and calories via liquids.) Education Completed: 1. Described result of evaluation. Status Active ST Patient: Active Contact Information [facility] Speech Therapy:: Jazlyn Fraser M.A. [facility]-[employer]? Speech-Language Pathologist?? [facility] [address] [place] [address]? [email or web address]?? [phone]
== END | disposition home or self-care (01) ==
PROVIDERS: PCP Family Medicine; Referring Provider Nurse Practitioner Acute Care; Visit Provider Nurse Practitioner Acute Care
DX: R13.10 Dysphagia, unspecified (principal); R05.9 Cough, unspecified; R63.4 Abnormal weight loss
CPT/HCPCS: 74230; 92611

== ENCOUNTER → 2024-09-27 | Outpatient (CLI) | payer MEDICARE, OTHER, SELFPAY ==
--- NOTE | 2024-09-27 08:05 | RAD_ITS ---
PROCEDURE: ESOPHAGUS DUAL CONTRAST REASON FOR EXAM: DYSPHAGIA Chronic cough. TECHNIQUE: FLUOROSCOPIC TIME: 50 seconds. FLUOROGRAPHIC IMAGES: 45 fluoroscopic images. COMPARISON: None. FINDINGS: The patient ingested barium. Multiple fluoroscopic images of the esophagus were obtained. The esophagus is unremarkable. No evidence of gastroesophageal reflux. No obstruction is seen. The patient ingested a 12 mm tablet the barium. The tablet is trapped at the gastroesophageal junction. There is evidence of dextroscoliosis of the thoracic spine with multilevel disc space narrowing. RAD/Esophagus Dual Contrast IMPRESSION: The ingested a 12 mm tablet the barium is trapped at the gastroesophageal junct ion. No evidence of gastroesophageal reflux. Reading Location: [facility]
== END | disposition home or self-care (01) ==
LOC: RAD 07:41
PROVIDERS: PCP Family Medicine; Referring Provider Nurse Practitioner Acute Care; Visit Provider Nurse Practitioner Acute Care
DX: R13.10 Dysphagia, unspecified (principal); R05.9 Cough, unspecified; R63.4 Abnormal weight loss
CPT/HCPCS: 74221

== ENCOUNTER → 2024-10-08 | Outpatient (CLI) | payer MEDICARE, OTHER, SELFPAY ==
--- NOTE | 2024-10-08 09:23 | US_ITS ---
PROCEDURE: ABDOMEN LIMITED 10/08/2024 REASON FOR EXAM: 84-year-old female, elevated alkaline phosphatase. COMPARISON: None. FINDINGS: Liver: Diffusely echogenic suggesting fatty infiltration. Normal in size measuring 13.2 cm. The bile ducts are within normal limits. The main portal veins patent with normal directional flow. Gallbladder: Soft tissue mass within the gallbladder fundus measuring 2.2 x 1.4 x 0.7 cm. The gallbladder is distended without gallbladder wall thickening or pericholecystic fluid. Negative Lee's sign. Common bile duct: Normal measuring 0.4 cm. Pancreas: Visualized portions are sonographically unremarkable. Other: Visualized portions of the right renal cortex are unremarkable. Dilated right renal pelvis measuring up to 1.4 cm. No right upper quadrant ascites. US/Abdomen Limited IMPRESSION: 1. Soft tissue mass within the gallbladder fundus, which may represent gallblad lai neoplasm or gallbladder sludge. Correlation with cross-sectional imaging (CT or MRI) is recommended for further evaluation. 2. Dilation of the right renal pelvis without obvious renal cortical thinning. This could also be evaluated on cross-sectional imaging. 3. Mild hepatic steatosis. Reading Location: [id number]
== END | disposition home or self-care (01) ==
LOC: US 09:23
PROVIDERS: PCP Family Medicine; Referring Provider Nurse Practitioner Acute Care; Visit Provider Nurse Practitioner Acute Care
DX: R74.8 Abnormal levels of other serum enzymes (principal)
CPT/HCPCS: 76705

== ENCOUNTER 2024-10-10 05:50 | Day surgery (SDC) | payer MEDICARE, OTHER, SELFPAY ==
--- NOTE | 2024-10-08 18:52 | PAT.ANESEVAL ---
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 When Was Last Pacemaker Check QUESTION #4 FULL TEXT: You/Your Family Experience fever (hyperthermia) with Anesthesia Last Oral Intake Last Oral intake: Last Oral Intake NPO since Meds taken in AM with sips of water? Meds patient instructed to take am of surgery PONV PONV - handstitching machine collar feller: PONV - handstitching machine collar feller Female Yes 10/08/24 11:46 HX of Motion Sickness No 10/08/24 11:46 HX of N/V After Surgery No 10/08/24 11:46 Non-Smoker Yes 10/08/24 11:46 Duration of Surgery greater No 10/08/24 11:46 than 60 minutes Number of Risk Factors 2 10/08/24 11:46 PONV Score Moderate Risk 10/08/24 11:46 Height & Weight Height & Weight: Anesthesia: Height & Weight Height 5 ft 5 in 09/05/24 08:02 Respiratory Assessment Respiratory Assessment - handstitching machine collar feller: Respiratory Tract Infection Hx - handstitching machine collar feller Hx Respiratory Tract Infection No 10/08/24 11:46 STOP Sleep Apnea STOP Sleep Apnea - handstitching machine collar feller: STOP Sleep Apnea - handstitching machine collar feller Hx Hypertension No 10/08/24 11:46 Hx Sleep Apnea No 10/08/24 11:46 CPAP No 10/08/24 11:46 BIPAP No 10/08/24 11:46 Do you snore loudly (louder No 10/08/24 11:46 than talking or can be heard Do you often feel tired/ No 10/08/24 11:46 fatigued/ sleepy during daytime? Has anyone observed you stop No 10/08/24 11:46 breathing during sleep? STOP Results Negative 10/08/24 11:46 QUESTION #5 FULL TEXT : Do you snore loudly (louder than talking or can be heard through closed doors)? 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 Specify any problems Hx of Preganancy in last 3 No 10/08/24 11:46 Months Nurse Filling Out Transfusion VCHRISTIN 10/08/24 11:46 & Questions: Date: 10/08/24 10/08/24 11:46 Time: 11:47 10/08/24 11:46 Patient unable to answer at this time (ie. confused, unrespo /Reproduction History /Reproductive History - handstitching machine collar feller: /Reproductive Hx- handstitching machine collar feller Hx Now Gestational Age (in weeks): EDC: Hx Hx Para Hx Section SAB PFSH Medical History (Updated 10/08/24 @ 11:46 by Jackelyn Donald) Wears glasses Post-menopausal Cancer Thyroid disease Gastric reflux Non-smoker Shortness of breath on exertion Chronic cough Leg cramps Normal Holter exam History of echocardiogram History of stress test Cardiology follow-up encounter Chest pain RLS (restless legs syndrome) Osteoporosis Arthritis Hyperlipidemia Tachycardia Asthma Lung nodules Home Medications ?Medication ?Instructions ?Recorded ?Last Taken ?Type denosumab 60 mg/mL subcutaneous 60 mg subcut .Q6 MONTHS 04/17/20 Unknown History syringe omeprazole 40 mg capsule,delayed 40 mg PO DAILY 04/17/20 Unknown History release liothyronine 5 mcg tablet (Cytomel) 5 mcg PO DAILY 04/21/23 Unknown History calcium 600 mg (as 1 tab PO BID 09/11/23 Unknown History carbonate)-vitamin D3 20 mcg (800 unit) tablet mecobalamin (vitamin B12) 1,000 1,000 mcg PO DAILY 09/11/23 Unknown History mcg chewable tablet diltiazem HCl 30 mg tablet 30 mg PO QDAY 10/04/23 Unknown History sulindac 200 mg tablet 200 mg PO BID 08/26/24 Unknown History cholecalciferol (vitamin D3) 25 25 mcg PO DAILY 10/08/24 Unknown History mcg (1,000 unit) capsule (Vitamin D3) magnesium 250 mg tablet 250 mg PO DAILY 10/08/24 Unknown History Allergy/AdvReac Type Severity Reaction Status Date / Time No Known Allergies Allergy Verified 10/08/24 11:34 Family History Mother Rheumatoid arthritis Father Rheumatoid arthritis Other Malignant neoplasm determined by biopsy of testicle Surgical History (Updated 10/08/24 @ 11:46 by Jackelyn Donald) History of lobectomy of lung H/O vaginal surgery History of surgery on upper extremity Complete tear of sacrospinous ligament Cataract fragments of eye following cataract surgery History of genitourinary surgery S/P cervical spinal fusion Hx of repair of rotator cuff H/O hand surgery History of total right knee replacement (TKR) Social History Smoking Status: Never smoker alcohol intake: current alcohol intake frequency: a few times a week Alcohol type: wine substance use type: does not use Audit: Pertinent Findings Pertinent Findings EKG Perinent findings: October 04, 2023. Sinus rhythm within normal limits. Stress test pertinent findings: November 16, 2023. Ejection fraction 75%. No areas of reversibility are noted to suggest ischemia and no previous infarct was noted. Echo (EF%) pertinent findings: November 03, 2023. Ejection fraction of 60%. PA systolic pressure is 28 mmHg. No aortic stenosis noted. Consult pertinent findings: January 10, 2024. Oren GRAY. 1. Shortness of breath-acute. 2. Tachycardia?acute. 3. Recent testing noted. Symptoms are likely noncardiac. Additional pertinent findings: August 14, 2023. Holter monitor. Average heart rate was 86 bpm and sinus rhythm. Few PVCs were noted with no runs. Rare supraventricular ectopy noted, no runs no atrial fibrillation or flutter noted. Diary notes listed 3 symptoms 1 of which correlated with sinus tachycardia and shortness of breath. Recommendation Anesthesia Recommendation Anesthesia recommendation: OPTIMIZED for anesthesia
[2024-10-10] VITALS (7 sets, daily range): BP systolic 97–112; BP diastolic 64–73; PULSE 77–88; RESP 16; TEMP 36.3–36.7; O2SAT 96–99; BMI 24.0
--- NOTE | 2024-10-10 06:33 | PCM.PRE.AN2 ---
ASA Classification* ASA Classification ASA Classification: 2 Assessment & Plan Anesthesia* Anesthesia Assessment Anesthesia Assessment: Discussed sedation and/or anesthesia options, risks, benefits, and alternatives with patient/parents/legal guardian/POA. Questions invited. The patient/parents/legal guardian/POA seems to understand and agrees to proceed with anesthesia plan. Reviewed the physical assessment, medical history, allergy history and patient home medications list prior to surgery/procedure/anesthetic and documented any changes. Performed airway and anesthesia risk assessments. Anesthesia Type Anesthesia Type: MAC History Source History Obtained from:: Patient and Chart Anesthesia Focused Assessment* Temperature: 98.1 F Pulse Rate: 79 Blood Pressure: 112/73 Respiratory Rate: 16 Pulse Ox: 99 Oxygen Delivery Method: Room Air Airway Assessment Mouth opens: >3 cm Mallampati Score: IV Teeth Condition: Intact Neck Range of motion (ROM): Full ROM Focused Labs Anesthesia Preop lab: CBC WBC 4.9 K/mm3 (4.4-11.0) 08/07/24 09:08 08/07/24 RBC 4.19 M/mm3 (4.2-5.4) L 08/07/24 09:08 08/07/24 Hgb 12.6 g/dL (12.0-15.0) 08/07/24 09:08 08/07/24 Hct 40.2 % (37-47) 08/07/24 09:08 08/07/24 Plt Count 289 K/mm3 (150-450) 08/07/24 09:08 08/07/24 CHEMISTRY Potassium 3.8 mmol/L (3.5-5.1) 08/07/24 09:08 08/07/24 Sodium 140 mmol/L (136-145) 08/07/24 09:08 08/07/24 Magnesium 2.2 mg/dL (1.6-2.6) 01/26/23 10:33 01/26/23 BUN 19 mg/dL (7-18) H 08/07/24 09:08 08/07/24 Creatinine 0.81 mg/dL (0.55-1.02) 08/07/24 09:08 08/07/24 Glucose 87 mg/dL (74-106) 08/07/24 09:08 08/07/24 TSH 2.000 uIU/mL (0.358-3.740) 08/07/24 09:08 08/07/24 COAG PT 12.6 SECONDS (11.7-14.9) 08/18/20 13:37 08/18/20 Pre-Assessment Diagnosis/Proposed Procedure Planned Operative Procedure(s): EGD Anesthesia History 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 When Was Last Pacemaker Check QUESTION #4 FULL TEXT: You/Your Family Experience fever (hyperthermia) with Anesthesia Last Oral Intake Last Oral intake: Last Oral Intake NPO since 05:00 10/10/24 06:17 Meds taken in AM with sips of Yes 10/10/24 06:17 water? Meds patient instructed to see med rec 10/10/24 06:17 take am of surgery Any additional information?: Yes Meds taken in AM with sips of water?: Yes PONV PONV - cook helper pastry: PONV - cook helper pastry Female Yes 10/08/24 11:46 HX of Motion Sickness No 10/08/24 11:46 HX of N/V After Surgery No 10/08/24 11:46 Non-Smoker Yes 10/08/24 11:46 Duration of Surgery greater No 10/08/24 11:46 than 60 minutes Number of Risk Factors 2 10/08/24 11:46 PONV Score Moderate Risk 10/08/24 11:46 Height & Weight Height & Weight: Anesthesia: Height & Weight Height 5 ft 3 in 10/10/24 06:17 Weight: 61.4 kg 10/10/24 06:17 Body Mass Index (BMI) 24.0 10/10/24 06:17 Respiratory Assessment Respiratory Assessment - cook helper pastry: Respiratory Tract Infection Hx - cook helper pastry Hx Respiratory Tract Infection No 10/08/24 11:46 Any additional information?: Yes Hx Respiratory Tract Infection: Yes (Patient has a chronic cough. Nothing acute.) STOP Sleep Apnea STOP Sleep Apnea - cook helper pastry: STOP Sleep Apnea - cook helper pastry Hx Hypertension No 10/08/24 11:46 Hx Sleep Apnea No 10/08/24 11:46 CPAP No 10/08/24 11:46 BIPAP No 10/08/24 11:46 Do you snore loudly (louder No 10/08/24 11:46 than talking or can be heard Do you often feel tired/ No 10/08/24 11:46 fatigued/ sleepy during daytime? Has anyone observed you stop No 10/08/24 11:46 breathing during sleep? STOP Results Negative 10/08/24 11:46 QUESTION #5 FULL TEXT : Do you snore loudly (louder than talking or can be heard through closed doors)? 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 Specify any problems Hx of Preganancy in last 3 No 10/08/24 11:46 Months Nurse Filling Out Transfusion VCHRISTIN 10/08/24 11:46 & Questions: Date: 10/08/24 10/08/24 11:46 Time: 11:47 10/08/24 11:46 Patient unable to answer at this time (ie. confused, unrespo /Reproduction History /Reproductive History - cook helper pastry: /Reproductive Hx- cook helper pastry Hx Now Gestational Age (in weeks): EDC: Hx Hx Para Hx Section SAB PFSH Medical History Wears glasses Post-menopausal Cancer Thyroid disease Gastric reflux Non-smoker Shortness of breath on exertion Chronic cough Leg cramps Normal Holter exam History of echocardiogram History of stress test Cardiology follow-up encounter Chest pain RLS (restless legs syndrome) Osteoporosis Arthritis Hyperlipidemia Tachycardia Asthma Lung nodules Home Medications ?Medication ?Instructions ?Recorded ?Last Taken ?Type denosumab 60 mg/mL subcutaneous 60 mg subcut .Q6 MONTHS 04/17/20 Unknown History syringe omeprazole 40 mg capsule,delayed 40 mg PO DAILY 04/17/20 Unknown History release liothyronine 5 mcg tablet (Cytomel) 5 mcg PO DAILY 04/21/23 10/10/24 05:00 History calcium 600 mg (as 1 tab PO BID 09/11/23 Unknown History carbonate)-vitamin D3 20 mcg (800 unit) tablet mecobalamin (vitamin B12) 1,000 1,000 mcg PO DAILY 09/11/23 Unknown History mcg chewable tablet diltiazem HCl 30 mg tablet 30 mg PO QDAY 10/04/23 10/10/24 05:00 History sulindac 200 mg tablet 200 mg PO BID 08/26/24 Unknown History cholecalciferol (vitamin D3) 25 25 mcg PO DAILY 10/08/24 Unknown History mcg (1,000 unit) capsule (Vitamin D3) magnesium 250 mg tablet 250 mg PO DAILY 10/08/24 Unknown History Allergy/AdvReac Type Severity Reaction Status Date / Time No Known Allergies Allergy Verified 10/10/24 06:15 Family History Mother Rheumatoid arthritis Father Rheumatoid arthritis Other Malignant neoplasm determined by biopsy of testicle Surgical History History of lobectomy of lung H/O vaginal surgery History of surgery on upper extremity Complete tear of sacrospinous ligament Cataract fragments of eye following cataract surgery History of genitourinary surgery S/P cervical spinal fusion Hx of repair of rotator cuff H/O hand surgery History of total right knee replacement (TKR) Social History Smoking Status: Never smoker alcohol intake: current alcohol intake frequency: a few times a week Alcohol type: wine substance use type: does not use Review of Systems (Anesthesia) ROS Narrative System reviewed and no additional complaints, except as documented.
--- NOTE | 2024-10-10 07:00 | EGD_PTH ---
PATIENT: JYOTI FULTON LOC: EN U#:[id number] AGE/SX: 84/F ROOM: RE10/10/[address]: Dr. Aron Frank DO : 1940 BED: DIS: 10/10/2024 SPEC #: [id number] RECD: 10/10/24 09:38 STATUS: GRADY REChristine #: [id number] SUNNY: 10/10/24 07:[address]: Aron Frank DEPT: SURGICAL PATHOLOGY RECD BY: Gorge Peralta ENTERED: 10/10/24 09:38 SP TYPE: EGD BIOPSY SAMMIE DR: Dr. Danielle Paige DO Tissues: A - Esophagus, NOS Procedures: Surgery Specimen Level IV HEADER OPERATION: EGD with biopsy and dilation PRE-OP DIAGNOSIS: Cough, dysphagia TISSUE SUBMITTED: A- Distal esophagus biopsy MICROSCOPIC DIAGNOSIS A. DISTAL ESOPHAGUS, BIOPSY: -BENIGN SQUAMOUS MUCOSA NEGATIVE FOR EOSINOPHILS. -COLUMNAR MUCOSA NEGATIVE FOR GOBLET CELL METAPLASIA. MICROSCOPIC DESCRIPTION Slides are reviewed. GROSS DESCRIPTION A. Received in formalin labeled Jyoti Fulton, and designated distal esophagus biopsy, are two mayes tissue fragments aggregating to 0.7 x 0.4 x 0.2. Totally submitted in one cassette. SUDEEP 10/10/2024 CPT:23414
--- NOTE | 2024-10-10 07:07 | PCM.HP.STD ---
HPI - General General Date of Admission: 10/10/24 Date of Service: 10/10/24 Chief Complaint: Cough and dysphagia HPI Narrative MARGIE FULTON, is a 84 F who presents for the endoscopic valuation of cough and dysphagia Omeprazole 40mg daily LABS 08/07/2024 HGB 12.6, PLT 289, AST 38, ALP 177, CRP 9.19 01/24/2024 CEA 10.2 - denies any change in habits - denies any bleeding - non-productive cough with swallowing - dysphagia - upper esophagus - solids - intermittent - denies any H/O CVA ENT - prior to 2021 - due to cough and hoarseness - states laryngoscopy was negative [facility] lung CA - lobe ectomy October 2021 - no chemo or radiation - denies any kidney or cardiac issues - Colonoscopy 5 years ago was normal per patient - remains active - continues to drive - lives alone [facility] Medical History Wears glasses Post-menopausal Cancer Thyroid disease Gastric reflux Non-smoker Shortness of breath on exertion Chronic cough Leg cramps Normal Holter exam History of echocardiogram History of stress test Cardiology follow-up encounter Chest pain RLS (restless legs syndrome) Osteoporosis Arthritis Hyperlipidemia Tachycardia Asthma Lung nodules Home Medications ?Medication ?Instructions ?Recorded ?Last Taken ?Type denosumab 60 mg/mL subcutaneous 60 mg subcut .Q6 MONTHS 04/17/20 Unknown History syringe omeprazole 40 mg capsule,delayed 40 mg PO DAILY 04/17/20 Unknown History release liothyronine 5 mcg tablet (Cytomel) 5 mcg PO DAILY 04/21/23 10/10/24 05:00 History calcium 600 mg (as 1 tab PO BID 09/11/23 Unknown History carbonate)-vitamin D3 20 mcg (800 unit) tablet mecobalamin (vitamin B12) 1,000 1,000 mcg PO DAILY 09/11/23 Unknown History mcg chewable tablet diltiazem HCl 30 mg tablet 30 mg PO QDAY 10/04/23 10/10/24 05:00 History sulindac 200 mg tablet 200 mg PO BID 08/26/24 Unknown History cholecalciferol (vitamin D3) 25 25 mcg PO DAILY 10/08/24 Unknown History mcg (1,000 unit) capsule (Vitamin D3) magnesium 250 mg tablet 250 mg PO DAILY 10/08/24 Unknown History Allergy/AdvReac Type Severity Reaction Status Date / Time No Known Allergies Allergy Verified 10/10/24 06:15 Family History Mother Rheumatoid arthritis Father Rheumatoid arthritis Other Malignant neoplasm determined by biopsy of testicle Surgical History History of lobectomy of lung H/O vaginal surgery History of surgery on upper extremity Complete tear of sacrospinous ligament Cataract fragments of eye following cataract surgery History of genitourinary surgery S/P cervical spinal fusion Hx of repair of rotator cuff H/O hand surgery History of total right knee replacement (TKR) Social History Smoking Status: Never smoker alcohol intake: current alcohol intake frequency: a few times a week Alcohol type: wine substance use type: does not use ROS Constitutional Constitutional: Denies fatigue, fever(s), poor appetite, weight gain or weight loss Gastrointestinal Gastrointestinal: Denies belching, bloating, change in bowel habits, change in stool character, chewing difficulty, coffee ground emesis, constipation, cramping, diarrhea, dyspepsia, dysphagia, early satiety, excessive flatus, fecal incontinence, heartburn, hematemesis, hematochezia, hemorrhoids, loose stools, melena, nausea, odynophagia, rectal bleeding, tenesmus, vomiting or weight changes Vital Signs Vital Signs Vital Signs: 10/10/24 06:17 10/10/24 06:17 10/10/24 06:40 Temperature 98.1 F 98.1 F Temperature Source Temporal Pulse Rate 79 79 Respiratory Rate 16 16 Respiratory Pattern Normal Blood Pressure 112/73 112/73 Blood Pressure Mean 86 Blood Pressure Source Monitor Blood Pressure Position Sitting Blood Pressure Location Right Arm Pulse Ox 99 99 Oxygen Delivery Method Room Air Room Air Weight Weight: 135 lb 5.821 oz Body Mass Index (BMI) 24.0 Physical Exam Const alert, oriented x3, no apparent distress and healthy appearing General Appearance: cooperative GI normal to inspection, nondistended, normoactive bowel sounds, soft to palpation, non-tender and non-distended Percussion: normal to percussion Rectal Exam: deferred Assessment & Plan Assessment/Plan (1) Cough: (2) Dysphagia: PLAN: Assessment and Plan Assessment and Plan (1) Gastroesophageal reflux disease: (2) Dysphagia: Status: Acute (3) Cough: Status: Acute (4) Weight loss: Status: Acute (5) Elevated alkaline phosphatase level: Status: Acute (6) Elevated AST (SGOT): Status: Acute Orders: Orders Swallowing Function w/Video 08/27/24 R05.9 - Cough, unspecified, R13.10 - Dysphagia, unspecified, R63.4 - Abnormal weight loss Esophagus Dual Contrast 08/27/24 R05.9 - Cough, unspecified, R13.10 - Dysphagia, unspecified, R63.4 - Abnormal weight loss Liver Profile 1 Month R74.01 - Elevation of levels of liver transaminase levels, R74.8 - Abnormal levels of other serum enzymes GGTP 1 Month R74.01 - Elevation of levels of liver transaminase levels, R74.8 - Abnormal levels of other serum enzymes Plan 84y/o female presents for consultation with complaints of hoarseness, cough and GERD. PMH of tachycardiac, COPD, lung nodule s/p right upper lobe ectomy, HLD. Cardiac w/u for SOB December 2023 with normal stress test and EF 60%. UGI symptoms are postprandial but does endorse coughing with swallowing. Denies any N/V. She is taking Omeprazole 40mg daily x2 years and reports no improvement in cough. She does experience intermittent upper esophageal dysphagia with solids. She reports a decrease in appetite and weight loss of 10lbs over the past six months. Labs completed 08/07/2024 reveal AST 38, ALP 177, CRP 9.19. I have scheduled her for MBS/Esophagram and EGD. She will repeat labs in 1 month. Patient Instructions: Labs 1 month EGD MBS and Esophagram Continue daily PPI
--- NOTE | 2024-10-10 07:31 | OP.EGD_ITS ---
Patient Name: Jyoti Fair Procedure Date: 10/10/2024 7:11 AM Date of : 1940 Age: 84 Procedure: Upper GI endoscopy Indications: Dysphagia, Suspected esophageal reflux Providers: Aron Frank DO Referring MD: Danielle Paige Medicines: Monitored Anesthesia Care Patient Profile: This is an 84 year old female. Refer to note in patient chart for documentation of history and physical. Patient has symptoms of chronic cough, chronic dysphagia and dysphagia with both liquids and solids. Complications: No immediate complications. Procedure: Pre-Anesthesia Assessment: - Prior to the procedure, a History and Physical was performed, and patient medications and allergies were reviewed. The patient is competent. The risks and benefits of the procedure and the sedation options and risks were discussed with the patient. All questions were answered and informed consent was obtained. Patient identification and proposed procedure were verified by the physician in the pre-procedure area. Mental Status Examination: alert and oriented. Airway Examination: normal oropharyngeal airway and neck mobility. Respiratory Examination: clear to auscultation. CV Examination: normal. Prophylactic Antibiotics: The patient does not require prophylactic antibiotics. Prior Anticoagulants: The patient has taken no anticoagulant or antiplatelet agents except for aspirin. ASA Grade Assessment: II - A patient with mild systemic disease. After reviewing the risks and benefits, the patient was deemed in satisfactory condition to undergo the procedure. The anesthesia plan was to use monitored anesthesia care (MAC). Immediately prior to administration of medications, the patient was re-assessed for adequacy to receive sedatives. The heart rate, respiratory rate, oxygen saturations, blood pressure, adequacy of pulmonary ventilation, and response to care were monitored throughout the procedure. The physical status of the patient was re-assessed after the procedure. After obtaining informed consent, the endoscope was passed under direct vision. Throughout the procedure, the patient's blood pressure, pulse, and oxygen saturations were monitored continuously. The Endoscope was introduced through the mouth, and advanced to the second part of duodenum. The upper GI endoscopy was accomplished without difficulty. The patient tolerated the procedure well. Scope In: 7:20:13 AM Scope Out: 7:24:17 AM Total Procedure Duration Time 0 hours 4 minutes 4 seconds Findings: Abnormal motility was noted at the cricopharyngeus. The cricopharyngeus was abnormal. There is a decrease in motility of the esophageal body. The distal esophagus/lower esophageal sphincter is spastic, but gives up passage to the endoscope. Primary peristaltic waves are noted. Biopsies were taken with a cold forceps for histology. Verification of patient identification for the specimen was done. A guidewire was placed and the scope was withdrawn. Dilation was performed with a Savary dilator with no resistance at 54 Fr. The dilation site was examined and showed mild improvement in luminal narrowing. Estimated blood loss was minimal. A small hiatal hernia was present. No other significant abnormalities were identified in a careful examination of the stomach. No gross lesions were noted in the first portion of the duodenum. Impression: - Abnormal esophageal motility, suspicious for presbyesophagus. Biopsied. Dilated. - Small hiatal hernia. - No gross lesions in the first portion of the duodenum. Recommendation: - Discharge patient to home. - Resume previous diet. - Continue present medications. - Await pathology results. Procedure Code(s): --- Professional --- 35043, Esophagogastroduodenoscopy, flexible, transoral; with insertion of guide wire followed by passage of dilator(s) through esophagus over guide wire 58192, 59,51, Esophagogastroduodenoscopy, flexible, transoral; with biopsy, single or multiple CPT copyright 2021 [employer]. All rights reserved. The codes documented in this report are preliminary and upon dental aide review may be revised to meet current compliance requirements. Aron Frank DO 10/10/2024 7:31:21 AM This report has been signed electronically. Number of Addenda: 0 Note Initiated On: 10/10/2024 7:11 AM
--- NOTE | 2024-10-10 07:32 | OP.CCLET_ITS ---
10/10/2024 Danielle Paige [address] [place] [address] Re : Upper GI endoscopy procedure for Jyoti Fair Dear Dr. Paige This procedure was performed on September. My impressions and recommendations are as follows: Impressions : - Abnormal esophageal motility, suspicious for presbyesophagus. Biopsied. Dilated. - Small hiatal hernia. - No gross lesions in the first portion of the duodenum. Recommendations : - Discharge patient to home. - Resume previous diet. - Continue present medications. - Await pathology results. My findings are described in the full procedure note, which is enclosed. If I can be of further assistance, please feel free to contact me at . Sincerely, Aron Frank, 10/10/2024 7:31:21 AM This report has been signed electronically.
--- NOTE | 2024-10-10 07:52 | PCM.POST.ANE ---
Anesthesia: Postop Eval I Current Vital Signs Temperature: 97.6 F Pulse Rate: 88 Blood Pressure: 101/72 Respiratory Rate: 16 Pulse Ox: 97 Oxygen Delivery Method: Room Air Assessment Airway patent: Yes Spontaneous unlabored respirations: Yes Mental status: Awake and Calm nausea: No Vomiting: No Anesthesia Complication: No Fluid Hydration Crystalloid volume administer (ml): 30 Total IV fluid infused: 30 Progress Note Anesthesia document: Postop Eval 1 completed: Yes
--- NOTE | 2024-10-10 12:04 | PCM.POSTANE2 ---
Anesthesia Postop Eval I Sum Postop Eval Completion status Anesthesia document: Postop Eval 1 completed: Yes Anesthesia Postop Eval I Summary Anesthesia Postop Eval I Summary: Anesthesia Postop Eval I: Assessment Summary Airway patent Yes 10/10/24 07:53 [email or web address] Spontaneous unlabored Yes 10/10/24 07:53 [email or web address] respirations Mental status Awake,Calm 10/10/24 07:53 [email or web address] nausea No 10/10/24 07:53 [email or web address] Vomiting No 10/10/24 07:53 [email or web address] Anesthesia Postop Eval I: Fluid Summary Crystalloid volume administer 30 10/10/24 07:53 [email or web address] (ml) Colloids volume administered ( ml) Blood Product volume administered (ml) Total IV fluid infused 30 10/10/24 07:53 [email or web address] Anesthesia Postop Eval I: Summary Notes Anesthesia Complication No 10/10/24 07:53 [email or web address] Anesthesia Complication Comment: Post-operative progress note Anesthesia: Postop Eval II Evaluation Mental status: Awake and Calm Pain Level: 0 nausea: No Vomiting: No Complications Anesthesia Complication: No
== END 2024-10-10 08:12 | disposition home or self-care (01) ==
LOC: EN 05:50 → AC 05:51
PROVIDERS: PCP Family Medicine; Referring Provider Family Medicine; Visit Provider Internal Medicine Gastroenterology
PROC: 0DJ08ZZ Inspection of Upper Intestinal Tract, Via Natural or Artificial Opening Endoscopic (ICD-10-PCS; CPT 43235; principal; 2024-10-10 06:55)
DX: R13.10 Dysphagia, unspecified (principal); R74.8 Abnormal levels of other serum enzymes; K44.9 Diaphragmatic hernia without obstruction or gangrene; K21.9 Gastro-esophageal reflux disease without esophagitis; R05.9 Cough, unspecified; Z85.118 Personal history of other malignant neoplasm of bronchus and lung; Z98.1 Arthrodesis status; R63.4 Abnormal weight loss; R74.01 Elevation of levels of liver transaminase levels; Z68.24 Body mass index [BMI] 24.0-24.9, adult
CPT/HCPCS: 43248; 43239; 88305; A4216; C1769; J2405

== ENCOUNTER → 2024-10-15 | Outpatient (CLI) | payer MEDICARE, OTHER, SELFPAY ==
--- NOTE | 2024-10-15 08:23 | MRI_ITS ---
PROCEDURE: MRI ABD WITH AND W/O CONTRAST 10/15/2024 REASON FOR EXAM: ABNORMAL ABD US TECHNIQUE: Multiplanar, multisequence MRI of the upper abdomen without and with intravenous gadolinium-based contrast. CONTRAST: Clariscan VOLUME: 12mL IV FINDINGS: The liver, pancreas, spleen, adrenals and kidneys are essentially unremarkable. There are 2 subcentimeter cysts identified in the right and left kidney. The gallbladder is distended. No gallstones are appreciated. No mass identified within the gallbladder fossa. A review of the ultrasound suggests there may be a sessile polyp gallbladder measuring over 2 cm. Peritoneal cavity and retroperitoneum are unremarkable. No free air or free fluid. No lymphadenopathy. Major vessels. No aggressive bone lesions. MRI/MRI Abd WITH and W/O Contrast IMPRESSION: The gallbladder polyp seen on the abdominal CT is not appreciated on MRI. May wish to consider a surgical consult Reading [facility]
== END | disposition home or self-care (01) ==
LOC: MRI 07:58
PROVIDERS: PCP Family Medicine; Referring Provider Nurse Practitioner Acute Care; Visit Provider Nurse Practitioner Acute Care
DX: R93.5 Abnormal findings on diagnostic imaging of other abdominal regions, including retroperitoneum (principal); R74.8 Abnormal levels of other serum enzymes; Z85.118 Personal history of other malignant neoplasm of bronchus and lung
CPT/HCPCS: 74183; A9575; A4216

== ENCOUNTER → 2024-10-17 | Outpatient (CLI) | payer MEDICARE, OTHER, SELFPAY ==
[2024-10-17 16:19] LABS: AST(SGOT) 35 U/L (<=31); Alanine Aminotransfer ALT/SGPT 31 U/L (<=34); Alkaline Phosphatase 143 U/L (35-104); Bilirubin, Direct 0.25 mg/dL (0.00-0.30); Globulin 2.7 g/dL (2.2-4.2); Protein, Total 6.7 g/dL (5.9-8.4); Total Bilirubin 0.43 mg/dL (0.00-1.30)
[2024-10-17 16:24] LABS: Rheumatoid Factor < 10.0 IU/mL (<15)
[2024-10-21 11:08] LABS: ANTINUCLEAR ANTIBODIES DIRECT Negative (Negative); Anti-Mitochondrial AB <20.0 Units (0.0-20.0)
[2024-10-21 16:08] LABS: Cytoplasmic Ab (C-ANCA) <1:20 titer (Neg:<1:20); Perinuclear Ab (P-ANCA) <1:20 titer (Neg:<1:20)
== END | disposition home or self-care (01) ==
LOC: LAB 13:51
PROVIDERS: PCP Family Medicine; Referring Provider Nurse Practitioner Acute Care; Visit Provider Nurse Practitioner Acute Care
DX: R93.5 Abnormal findings on diagnostic imaging of other abdominal regions, including retroperitoneum (principal); R63.4 Abnormal weight loss; R74.8 Abnormal levels of other serum enzymes; R10.9 Unspecified abdominal pain; R14.0 Abdominal distension (gaseous); Z85.118 Personal history of other malignant neoplasm of bronchus and lung
CPT/HCPCS: 36415; 80076; 83516; 86037; 86038; 86140; 86431

== ENCOUNTER 2024-10-18 10:19 | Outpatient (CLI) | payer MEDICARE, OTHER, SELFPAY ==
[2024-10-18 10:26] VITALS: BP 110/69; PULSE 80; RESP 16; TEMP 36.3; O2SAT 99; BMI 23.3
[2024-10-18] MEDS: DENOSUMAB 60 MG/ML SC (10:38)
== END 2024-10-18 23:59 | disposition home or self-care (01) ==
LOC: MEDOUTP 10:20
PROVIDERS: PCP Family Medicine; Referring Provider Family Medicine; Visit Provider Family Medicine
DX: M81.0 Age-related osteoporosis without current pathological fracture (principal)
CPT/HCPCS: 96372; J0897

== ENCOUNTER → 2024-11-11 | Outpatient (CLI) | payer MEDICARE, OTHER, SELFPAY ==
--- NOTE | 2024-11-11 07:47 | CT_ITS ---
PROCEDURE: ABDOMEN/PELVIS WITH CONTRAST 11/11/2024 REASON FOR EXAM: ABDOMINAL FULNESS, PAIN, WEIGHT LOSS, ABNL US TECHNIQUE: Abdomen and pelvis CT with intravenous contrast. Coronal and Sagittal reconstruction series were provided. PATIENT PREPARATION: Per protocol ORAL CONTRAST TYPE: Readi-Cat AMOUNT: Information not provided CONTRAST: Isovue 300 VOLUME: 98 mL One or more dose reduction techniques were used (e.g., Automated exposure control, adjustment of the mA and/or kV according to patient size, use of iterative reconstruction technique. RADIATION DOSE SUMMARY: CTDlvol: 16.62+ 8.52 mGy DLP: 438.42 mGycm COMPARISON: 10/15/2024 FINDINGS: Lung bases: Atelectasis/scarring. Coronary atherosclerosis and/or stents. Liver: Unremarkable. Spleen: Unremarkable. Gallbladder: Known gallbladder polyp not well seen. Top-normal caliber of the CBD for age at 7 mm. Pancreas: Unremarkable. Adrenals: Unremarkable. Kidneys: LEFT renal cyst and additional tiny hypodensities bilaterally, too small to characterize, likely cysts. Fullness of the extrarenal pelvis on the RIGHT without namrata caliectasis/hydronephrosis. Bowel: Diverticulosis. Gastric wall thickness not well evaluated due to underdistention. Normal caliber appendix. Lymph nodes: Unremarkable. Vasculature: Mild/moderate atherosclerosis.. Peritoneum: Unremarkable. Bladder: Underdistended and suboptimally evaluated, grossly unremarkable. Reproductive Organs: Unremarkable. Body Wall: Small fat containing umbilical hernia. Small LEFT and tiny RIGHT fat containing inguinal hernias. LEFT sacral nerve stimulator.. Bones: Mild spondylosis. Mild lumbar levoscoliosis. Degenerative changes of the [id number]-LEFT hips. CT/Abdomen/Pelvis WITH Contrast IMPRESSION: 1. No acute findings. 2. Additional description as above. Reading Location: [id number]
== END | disposition home or self-care (01) ==
LOC: CT 07:46
PROVIDERS: PCP Family Medicine; Referring Provider Nurse Practitioner Acute Care; Visit Provider Nurse Practitioner Acute Care
DX: Z85.118 Personal history of other malignant neoplasm of bronchus and lung (principal); R93.5 Abnormal findings on diagnostic imaging of other abdominal regions, including retroperitoneum; R63.4 Abnormal weight loss; R74.8 Abnormal levels of other serum enzymes; R10.9 Unspecified abdominal pain; R14.0 Abdominal distension (gaseous)
CPT/HCPCS: 74177; Q9967; A4216

== ENCOUNTER 2024-12-02 08:00 | Day surgery (SDC) | payer MEDICARE, OTHER, SELFPAY ==
--- NOTE | 2024-11-26 12:31 | EKG12_ITS ---
Test Reason : PREOP Blood Pressure : */* mmHG Vent. Rate : 65 BPM Atrial Rate : 65 BPM P-R Int : 142 ms QRS Dur : 82 ms QT Int : 406 ms P-R-T Axes : 58 41 58 degrees QTcB Int : 422 ms Normal sinus rhythm Normal ECG Confirmed by Tommy Calles ([id number]), dictionary editor FRANKLYN MOON ([id number]) on 11/28/2024 10:08:39 AM Referred By: Carlos Cano Confirmed By: Tommy Calles
--- NOTE | 2024-11-26 15:13 | PAT.ANESEVAL ---
Pre-Assessment Diagnosis/Proposed Procedure Planned Operative Procedure(s): (N/A) Robotic Cholecystectomy Anesthesia History Anesthesia History - release coordinator: Anesthesia History - release coordinator Hx Hospitalization No 11/25/24 09:33 Any Problems With Anesthesia No 11/25/24 09:33 Cholinesterase deficiency No 11/25/24 09:33 You/Your Family Experience No 11/25/24 09:33 fever (hyperthermia) with Relationship Recent Exposure to Contagious No 10/10/24 06:17 Disease Does patient have nerve No 11/25/24 09:33 stimulator Patient instructed to have device shut off --Does patient have Pacemaker or ICD? When Was Last Pacemaker Check QUESTION #4 FULL TEXT: You/Your Family Experience fever (hyperthermia) with Anesthesia Last Oral Intake Last Oral intake: Last Oral Intake NPO since Meds taken in AM with sips of water? Meds patient instructed to take am of surgery PONV PONV - release coordinator: PONV - release coordinator Female Yes 11/25/24 09:33 HX of Motion Sickness No 11/25/24 09:33 HX of N/V After Surgery No 11/25/24 09:33 Non-Smoker Yes 11/25/24 09:33 Duration of Surgery greater Yes 11/25/24 09:33 than 60 minutes Number of Risk Factors 3 11/25/24 09:33 PONV Score Moderate Risk 11/25/24 09:33 Height & Weight Height & Weight: Anesthesia: Height & Weight Height 5 ft 5 in 11/18/24 09:06 Respiratory Assessment Respiratory Assessment - release coordinator: Respiratory Tract Infection Hx - release coordinator Hx Respiratory Tract Infection Yes: Patient has a chronic 11/25/24 09:33 cough. Nothing acute. STOP Sleep Apnea STOP Sleep Apnea - release coordinator: STOP Sleep Apnea - release coordinator Hx Hypertension No 11/25/24 09:33 Hx Sleep Apnea No 11/25/24 09:33 CPAP No 11/25/24 09:33 BIPAP No 11/25/24 09:33 Do you snore loudly (louder No 11/25/24 09:33 than talking or can be heard Do you often feel tired/ No 11/25/24 09:33 fatigued/ sleepy during daytime? Has anyone observed you stop No 11/25/24 09:33 breathing during sleep? STOP Results Negative 11/25/24 09:33 QUESTION #5 FULL TEXT : Do you snore loudly (louder than talking or can be heard through closed doors)? Tobacco Use History Tobacco Use History - release coordinator: Tobacco Use History - release coordinator Tobacco Use Smoking Status Never smoker 11/25/24 09:33 Hx Tobacco Use No 11/25/24 09:33 Years Smoking Packs Smoked per Day Smoking Cessation Date was within the last 15 years Hx Smoking Cessation Date Hx Smoking Cessation Counseling Hematologic Medial History Hematologic Hx - release coordinator: Hematologic Medical Hx - slip mixer Hx of Blood Transfusion Yes 11/25/24 09:33 Hx of Transfusion in last 3 No 11/25/24 09:33 Months Date of Last Transfusion (if within last 3 months) Ever experience any problems No 11/25/24 09:33 with transfusion(s)? Specify any problems Hx of Preganancy in last 3 N/A 11/25/24 09:33 Months Nurse Filling Out Transfusion NBUCHER 11/25/24 09:33 & Questions: Date: 11/25/24 11/25/24 09:33 Time: 09:33 11/25/24 09:33 Patient unable to answer at this time (ie. confused, unrespo /Reproduction History /Reproductive History - release coordinator: /Reproductive Hx- release coordinator Hx Now No 11/25/24 09:33 Gestational Age (in weeks): EDC: Hx Hx Para Hx Section SAB No 11/25/24 09:33 Active Medications Active Medications: Current Medications Generic Name Dose Route Start Last Admin Trade Name Freq PRN Reason Stop Dose Admin Indocyanine Green 3.75 mg/ N/A 1.5 mls @ 999 mls/hr 12/02/24 08:45 IV 12/02/24 08:46 PREOP ONE PFSH Medical History Gallbladder polyp Wears glasses Post-menopausal Cancer Thyroid disease Gastric reflux Non-smoker Shortness of breath on exertion Chronic cough Leg cramps Normal Holter exam History of echocardiogram History of stress test Cardiology follow-up encounter Chest pain RLS (restless legs syndrome) Osteoporosis Arthritis Hyperlipidemia Tachycardia Asthma Lung nodules Home Medications ?Medication ?Instructions ?Recorded ?Last Taken ?Type denosumab 60 mg/mL subcutaneous 60 mg subcut .Q6 MONTHS 04/17/20 Unknown History syringe liothyronine 5 mcg tablet (Cytomel) 5 mcg PO DAILY 04/21/23 10/10/24 05:00 History calcium 600 mg (as 1 tab PO BID 09/11/23 Unknown History carbonate)-vitamin D3 20 mcg (800 unit) tablet mecobalamin (vitamin B12) 1,000 1,000 mcg PO DAILY 09/11/23 Unknown History mcg chewable tablet diltiazem HCl 30 mg tablet 30 mg PO QDAY 10/04/23 10/10/24 05:00 History sulindac 200 mg tablet 200 mg PO BID 08/26/24 Unknown History cholecalciferol (vitamin D3) 25 125 mcg PO DAILY 10/08/24 Unknown History mcg (1,000 unit) capsule (Vitamin D3) magnesium 250 mg tablet 400 mg PO DAILY 10/08/24 Unknown History turmeric 400 mg capsule 500 mg PO DAILY 10/18/24 Unknown History dicyclomine 10 mg capsule 10 mg PO BID PRN abdominal pain 11/12/24 Unknown Rx #30 caps Allergy/AdvReac Type Severity Reaction Status Date / Time No Known Allergies Allergy Verified 11/25/24 09:31 Family History Mother Rheumatoid arthritis Father Rheumatoid arthritis Other Malignant neoplasm determined by biopsy of testicle Surgical History (Updated 11/25/24 @ 09:35 by Heather Hale) History of esophagogastroduodenoscopy (EGD) History of lobectomy of lung H/O vaginal surgery History of surgery on upper extremity Complete tear of sacrospinous ligament Cataract fragments of eye following cataract surgery History of genitourinary surgery S/P cervical spinal fusion Hx of repair of rotator cuff H/O hand surgery History of total right knee replacement (TKR) Social History Smoking Status: Never smoker alcohol intake: current alcohol intake frequency: a few times a week Alcohol type: wine substance use type: does not use Prior Cardiac Testing/Procedures Prior Cardiac Testing/Procedures: Echocardiogram and Stress Test Addt'l Information Additional Findings: 60 % EF with Grade 1 diastolic dysfunction Audit: Pertinent Findings Pertinent Findings Stress test pertinent findings: no ischemia on stress test 11/16/23 Echo (EF%) pertinent findings: 65% stage 1 diastolic dysfunction Additional pertinent findings: RUL lobectomy in 2021 Recommendation Anesthesia Recommendation Anesthesia recommendation: OPTIMIZED for anesthesia (Patient should have an EKG prior to presenting to the operating room ) Follow up Details Cardiac/Pulmonary Imaging Recommendation: Yes Cadiac/Pulmonary Imaging Rec Details: Patient should have an EKG prior to presenting to the operating room
[2024-12-02] VITALS (12 sets, daily range): BP systolic 100–123; BP diastolic 61–69; PULSE 72–89; RESP 16–20; TEMP 36.3–37.1; O2SAT 92–98; BMI 22.0
--- NOTE | 2024-12-02 08:05 | PCM.PRE.AN2 ---
ASA Classification* ASA Classification ASA Classification: 2 Assessment & Plan Anesthesia* Anesthesia Assessment Anesthesia Assessment: Discussed sedation and/or anesthesia options, risks, benefits, and alternatives with patient/parents/legal guardian/POA. Questions invited. The patient/parents/legal guardian/POA seems to understand and agrees to proceed with anesthesia plan. Reviewed the physical assessment, medical history, allergy history and patient home medications list prior to surgery/procedure/anesthetic and documented any changes. Performed airway and anesthesia risk assessments. Anesthesia Type Anesthesia Type: General Anesthesia Focused Assessment* Airway Assessment Mouth opens: >3 cm Mallampati Score: II Focused Labs Anesthesia Preop lab: CBC WBC 4.9 K/mm3 (4.4-11.0) 08/07/24 09:08 08/07/24 RBC 4.19 M/mm3 (4.2-5.4) L 08/07/24 09:08 08/07/24 Hgb 12.6 g/dL (12.0-15.0) 08/07/24 09:08 08/07/24 Hct 40.2 % (37-47) 08/07/24 09:08 08/07/24 Plt Count 289 K/mm3 (150-450) 08/07/24 09:08 08/07/24 CHEMISTRY Potassium 3.8 mmol/L (3.5-5.1) 08/07/24 09:08 08/07/24 Sodium 140 mmol/L (136-145) 08/07/24 09:08 08/07/24 Magnesium 2.2 mg/dL (1.6-2.6) 01/26/23 10:33 01/26/23 BUN 19 mg/dL (7-18) H 08/07/24 09:08 08/07/24 Creatinine 0.81 mg/dL (0.55-1.02) 08/07/24 09:08 08/07/24 Glucose 87 mg/dL (74-106) 08/07/24 09:08 08/07/24 TSH 1.860 uIU/mL (0.300-4.200) 11/26/24 13:00 11/26/24 COAG PT 12.6 SECONDS (11.7-14.9) 08/18/20 13:37 08/18/20 Pre-Assessment Diagnosis/Proposed Procedure Planned Operative Procedure(s): (N/A) Robotic Cholecystectomy Anesthesia History 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 When Was Last Pacemaker Check QUESTION #4 FULL TEXT: You/Your Family Experience fever (hyperthermia) with Anesthesia Last Oral Intake Last Oral intake: Last Oral Intake NPO since Meds taken in AM with sips of water? Meds patient instructed to take am of surgery PONV PONV - metalizing machine operator: PONV - metalizing machine operator Female Yes 11/25/24 09:33 HX of Motion Sickness No 11/25/24 09:33 HX of N/V After Surgery No 11/25/24 09:33 Non-Smoker Yes 11/25/24 09:33 Duration of Surgery greater Yes 11/25/24 09:33 than 60 minutes Number of Risk Factors 3 11/25/24 09:33 PONV Score Moderate Risk 11/25/24 09:33 Height & Weight Height & Weight: Anesthesia: Height & Weight Height 5 ft 5 in 11/29/24 08:55 Weight: 61.235 kg 11/29/24 08:55 Respiratory Assessment Respiratory Assessment - metalizing machine operator: Respiratory Tract Infection Hx - metalizing machine operator Hx Respiratory Tract Infection Yes: Patient has a chronic 11/25/24 09:33 cough. Nothing acute. STOP Sleep Apnea STOP Sleep Apnea - metalizing machine operator: STOP Sleep Apnea - metalizing machine operator Hx Hypertension No 11/25/24 09:33 Hx Sleep Apnea No 11/25/24 09:33 CPAP No 11/25/24 09:33 BIPAP No 11/25/24 09:33 Do you snore loudly (louder No 11/25/24 09:33 than talking or can be heard Do you often feel tired/ No 11/25/24 09:33 fatigued/ sleepy during daytime? Has anyone observed you stop No 11/25/24 09:33 breathing during sleep? STOP Results Negative 11/25/24 09:33 QUESTION #5 FULL TEXT : Do you snore loudly (louder than talking or can be heard through closed doors)? Tobacco Use History Tobacco Use History - metalizing machine operator: Tobacco Use History - metalizing machine operator Tobacco Use Smoking Status Never smoker 11/25/24 09:33 Hx Tobacco Use No 11/25/24 09:33 Years Smoking Packs Smoked per Day Smoking Cessation Date was within the last 15 years Hx Smoking Cessation Date Hx Smoking Cessation Counseling Hematologic Medial History Hematologic Hx - metalizing machine operator: Hematologic Medical Hx - material specialist Hx of Blood Transfusion Yes 11/25/24 09:33 Hx of Transfusion in last 3 No 11/25/24 09:33 Months Date of Last Transfusion (if within last 3 months) Ever experience any problems No 11/25/24 09:33 with transfusion(s)? Specify any problems Hx of Preganancy in last 3 N/A 11/25/24 09:33 Months Nurse Filling Out Transfusion NBUCHER 11/25/24 09:33 & Questions: Date: 11/25/24 11/25/24 09:33 Time: 09:33 11/25/24 09:33 Patient unable to answer at this time (ie. confused, unrespo /Reproduction History /Reproductive History - metalizing machine operator: /Reproductive Hx- metalizing machine operator Hx Now No 11/25/24 09:33 Gestational Age (in weeks): EDC: Hx Hx Para Hx Section SAB No 11/25/24 09:33 Active Medications Active Medications: Current Medications Generic Name Dose Route Start Last Admin Trade Name Freq PRN Reason Stop Dose Admin Indocyanine Green 3.75 mg/ N/A 1.5 mls @ 999 mls/hr 12/02/24 08:45 IV 12/02/24 08:46 PREOP ONE Lactated Ringer's 1,000 mls @ 15 mls/hr 12/02/24 08:15 IV .Q48H GERARDO PFSH Medical History Gallbladder polyp Wears glasses Post-menopausal Cancer Thyroid disease Gastric reflux Non-smoker Shortness of breath on exertion Chronic cough Leg cramps Normal Holter exam History of echocardiogram History of stress test Cardiology follow-up encounter Chest pain RLS (restless legs syndrome) Osteoporosis Arthritis Hyperlipidemia Tachycardia Asthma Lung nodules Home Medications ?Medication ?Instructions ?Recorded ?Last Taken ?Type denosumab 60 mg/mL subcutaneous 60 mg subcut .Q6 MONTHS 04/17/20 Unknown History syringe liothyronine 5 mcg tablet (Cytomel) 5 mcg PO DAILY 04/21/23 10/10/24 05:00 History calcium 600 mg (as 1 tab PO BID 09/11/23 Unknown History carbonate)-vitamin D3 20 mcg (800 unit) tablet mecobalamin (vitamin B12) 1,000 1,000 mcg PO DAILY 09/11/23 Unknown History mcg chewable tablet diltiazem HCl 30 mg tablet 30 mg PO QDAY 10/04/23 10/10/24 05:00 History sulindac 200 mg tablet 200 mg PO BID 08/26/24 Unknown History cholecalciferol (vitamin D3) 25 125 mcg PO DAILY 10/08/24 Unknown History mcg (1,000 unit) capsule (Vitamin D3) magnesium 250 mg tablet 400 mg PO DAILY 10/08/24 Unknown History turmeric 400 mg capsule 500 mg PO DAILY 10/18/24 Unknown History dicyclomine 10 mg capsule 10 mg PO BID PRN abdominal pain 11/12/24 Unknown Rx #30 caps Allergy/AdvReac Type Severity Reaction Status Date / Time No Known Allergies Allergy Verified 11/25/24 09:31 Family History Mother Rheumatoid arthritis Father Rheumatoid arthritis Other Malignant neoplasm determined by biopsy of testicle Surgical History History of esophagogastroduodenoscopy (EGD) History of lobectomy of lung H/O vaginal surgery History of surgery on upper extremity Complete tear of sacrospinous ligament Cataract fragments of eye following cataract surgery History of genitourinary surgery S/P cervical spinal fusion Hx of repair of rotator cuff H/O hand surgery History of total right knee replacement (TKR) Social History Smoking Status: Never smoker alcohol intake: current alcohol intake frequency: a few times a week Alcohol type: wine substance use type: does not use Review of Systems (Anesthesia) ROS Narrative System reviewed and no additional complaints, except as documented.
[2024-12-02] MEDS: Lactated Ringers 1,000 ML 15 ML IV (08:28)
[2024-12-02] MEDS: INDOCYANINE GREEN 3.75 MG in Syringe 1.5 ML 999 MG IV (08:28)
--- NOTE | 2024-12-02 09:20 | HP.PCM_ITS ---
HPI - General General Date of Admission: 12/02/24 Date of Service: 12/02/24 Chief Complaint: Right upper quadrant pain HPI Narrative The patient is an 84-year-old female who is being seen today for right upper quadrant pain and some abnormal imaging regarding her gallbladder. Patient states that she has been having some right upper quadrant pain for some time. She recently underwent an EGD which sounds as though this was unremarkable. She also underwent an ultrasound that showed a questionable 2 cm polyp or mass within the gallbladder. This was followed up with an MRI which did not reveal any obvious mass or polyp. Nevertheless she continues to have some periodic right upper quadrant pain. She does state that this sometimes is worse with eating and does radiate around to the back and right shoulder. She presents today for further evaluation and treatment recommendations [facility] Medical History Gallbladder polyp Wears glasses Post-menopausal Cancer Thyroid disease Gastric reflux Non-smoker Shortness of breath on exertion Chronic cough Leg cramps Normal Holter exam History of echocardiogram History of stress test Cardiology follow-up encounter Chest pain RLS (restless legs syndrome) Osteoporosis Arthritis Hyperlipidemia Tachycardia Asthma Lung nodules Home Medications ?Medication ?Instructions ?Recorded ?Last Taken ?Type denosumab 60 mg/mL subcutaneous 60 mg subcut .Q6 MONTH S 04/17/20 Unknown History syringe liothyronine 5 mcg tablet (Cytomel) 5 mcg PO DAILY 01/0612/02/24 History calcium 600 mg (as 1 tab PO BID 09/11/23 Unknow n History carbonate)-vitamin D3 20 mcg (800 unit) tablet mecobalamin (vitamin B12) 1,000 1,000 mcg PO DAILY Unknown History mcg chewable tablet diltiazem HCl 30 mg tablet 30 mg PO QDAY 10/04/2311/14 History sulindac 200 mg tablet 200 mg PO BID 08/26/24 Unkno wn History cholecalciferol (vitamin D3) 25 125 mcg PO DAILY 10/08 Unknown History mcg (1,000 unit) capsule (Vitamin D3) magnesium 250 mg tablet 400 mg PO DAILY 10/08/24 Unk nown History turmeric 400 mg capsule 500 mg PO DAILY 10/18/24 Unk nown History dicyclomine 10 mg capsule 10 mg PO BID PRN abdominal p ain 11/12/24 Unknown Rx #30 caps omeprazole 40 mg capsule,delayed 40 mg PO BID 12/02/24 12/02/24 History release Allergy/AdvReac Type Severity Reaction Status Date / Time No Known Allergies Allergy Verified 12/02/24 08:34 Family History Mother Rheumatoid arthritis Father Rheumatoid arthritis Other Malignant neoplasm determined by biopsy of testicle Surgical History History of esophagogastroduodenoscopy (EGD) History of lobectomy of lung H/O vaginal surgery History of surgery on upper extremity Complete tear of sacrospinous ligament Cataract fragments of eye following cataract surgery History of genitourinary surgery S/P cervical spinal fusion Hx of repair of rotator cuff H/O hand surgery History of total right knee replacement (TKR) Social History Smoking Status: Never smoker alcohol intake: current alcohol intake frequency: a few times a week Alcohol type: wine substance use type: does not use Vital Signs Vital Signs Vital Signs: 12/02/24 08:13 12/02/24 08:13 Temperature 98.7 F Temperature Source Temporal Pulse Rate 83 Respiratory Rate 18 Respiratory Pattern Normal Blood Pressure 114/69 Blood Pressure Mean 84 Blood Pressure Source Monitor Blood Pressure Position Sitting Blood Pressure Location Left Arm Pulse Ox 98 Oxygen Delivery Method Room Air Weight Weight: 132 lb 4.438 oz Body Mass Index (BMI) 22.0 Physical Exam Const alert, oriented x3 and no apparent distress Assessment & Plan Assessment/Plan (1) Abdominal pain: PLAN: Plan Patient is a 4-year-old female with periodic right upper quadrant pain and questionable polyp in the gallbladder. I do feel that her symptoms seem reminiscent of biliary colic and so I have recommended a robotic cholecystectomy. We discussed the details of the planned procedure including risks benefits and alternatives and she wishes to proceed. Surgery began shortly Charges/Coding Visit Charges Inpatient E&M: 13255 Init Hosp L2
--- NOTE | 2024-12-02 09:30 | GALL_PTH ---
PATIENT: MARGIE FULTON LOC: [facility] – [place] U#:[id number] AGE/SX: 84/F ROOM: RE12/02/[address]: Dr. Carlos Cano MD : 1940 BED: DIS: 12/02/2024 SPEC #: [id number] RECD: 12/02/24 11:20 STATUS: GRADY JENKINS #: [id number] SUNNY: 12/02/24 09:[address]: Carlos Cano DEPT: SURGICAL PATHOLOGY RECD BY: Gorge Peralta ENTERED: 12/02/24 13:57 SP TYPE: ARELI COCHRAN DR: Dr. Danielle Paige DO Tissues: A - Gallbladder, NOS Procedures: Surgery Specimen Level III HEADER OPERATION: Robotic cholecystectomy PRE-OP DIAGNOSIS: Gallbladder: abnormal imaging, abdominal pain TISSUE SUBMITTED: A- Gallbladder MICROSCOPIC DIAGNOSIS A. Gallbladder, cholecystectomy: * Mild chronic cholecystitis with cholelithiasis * One benign lymph node MICROSCOPIC DESCRIPTION Slides are reviewed. GROSS DESCRIPTION A. Received in formalin in a container labeled with the patient's name, date of , and gallbladder is an 8.2 x 3.8 x 1.0 cm predominantly intact cholecystectomy specimen. A clamped possible cystic duct margin is identified measuring 0.4 cm in length by 0.3 cm in diameter (inked black). Adjacent to the clamped duct is a 0.4 x 0.3 x 0.3 cm mayes-pink periductal lymph node candidate. The serosa is pale green-hallman, smooth, and glistening. The specimen is opened to reveal an abundance of thick green bile with multiple yellow, friable stones ranging from 0.2 to 0.3 cm in greatest dimension. The mucosa is red-mayes and tinged green with scattered denuded areas. There is an average wall thickness of 0.2 cm. Charter Coordinator sections:A1. Cystic duct margin, en face with periductal lymph node candidate bisectedA2. Full-thickness sections [facility] 12-02-2024 CPT:23690
[2024-12-02] MEDS: Bupiv/Epi 0.25% 30 ML Vial (09:59)
--- NOTE | 2024-12-02 11:02 | PCM.POST.ANE ---
Anesthesia: Postop Eval I Current Vital Signs Temperature: 97.5 F Pulse Rate: 89 Blood Pressure: 110/63 Respiratory Rate: 20 Pulse Ox: 97 Oxygen Delivery Method: Room Air Assessment Airway patent: Yes Spontaneous unlabored respirations: Yes Mental status: Awake nausea: No Vomiting: No Anesthesia Complication: No Fluid Hydration Crystalloid volume administer (ml): 1,100 Total IV fluid infused: 1,100 Progress Note Anesthesia document: Postop Eval 1 completed: Yes
--- NOTE | 2024-12-02 11:03 | EX.PCM.DISCH ---
Discharge Instructions Diet Discharge Diet: Light diet - advance as tolerated Activity Discharge Activity: Return to Normal Activity and May Shower May shower in (days): 1 Ice area for (Minutes): 30 Lifting Restrictions: No lifting pushing or pulling more than 20 pounds for 3 to 4 weeks Dressing / Incision Call your doctor if your incision/area has: Continuous Slow Oozing, Sudden Increased Bleeding, Increased Pain/ Swelling, Increased Redness, Foul Smelling Discharge and Swelling at the incision site Call your doctor if you observe: Fever of 101 or Higher Cleanse incision/area with: Soap & Water Follow Up Care Please Follow Up With: Carlos Cano MD When: 2 weeks. Please call office to schedule appointment Test Results: Test results from this visit will be discussed in further detail at your follow-up appointment, if applicable. Discharge Plan Admission Primary Reason for Your Visit: Robotic cholecystectomy Attending Provider: Carlos Cano Primary Care Provider: Danielle Paige Instructions Print Language: Malaysian Discharge Orders/Prescriptions Prescriptions: New oxycodone-acetaminophen [Percocet] 5-325 mg tablet 1 tab PO Q8H PRN (Reason: pain) 3 Days Qty: 7 0RF Continued mecobalamin (vitamin B12) 1,000 mcg tablet,chewable 1,000 mcg PO DAILY diltiazem HCl 30 mg tablet 30 mg PO QDAY sulindac 200 mg tablet 200 mg PO BID dicyclomine 10 mg capsule 10 mg PO BID PRN (Reason: abdominal pain) Qty: 30 0RF calcium carbonate-vitamin D3 600 mg-20 mcg (800 unit) tablet 1 tab PO BID denosumab 60 MG/ML syringe 60 mg subcut .Q6 MONTHS Rx Instructions: every 6 months liothyronine [Cytomel] 5 mcg tablet 5 mcg PO DAILY turmeric 400 mg capsule 500 mg PO DAILY cholecalciferol (vitamin D3) [Vitamin D3] 25 mcg (1,000 unit) capsule 125 mcg PO DAILY magnesium 250 mg tablet 400 mg PO DAILY omeprazole 40 mg capsule,delayed release(DR/EC) 40 mg PO BID Other Ambulatory Orders: 12 Lead EKG (Routine) Location: None Selected Ordered By: Dr. Alex Rudolph Referrals / Follow Up: Danielle Paige DO [Primary Care Provider] - Disposition Disposition (needs filled in before D/C Order can be placed): Home, Self Care
--- NOTE | 2024-12-02 11:06 | OP.PCM_ITS ---
Problems Associated Problem List Diagnoses (1) Abnormal US (ultrasound) of abdomen: Procedures Digestive 40xxx-49xxx: [id number] Laparo cholecystectomy/graph Operative Report (Standard) Operative Information Date of Procedure: 12/02/24 Pre-Operative Diagnosis: Biliary colic Post-Operative Diagnosis: Same Surgery/Procedure Performed: Robotic cholecystectomy with ICG cholangiogram radio engineer: Yes Senior Clinical Research Associate: Brandi Infante Tasks completed by senior court office assistant: Closing and Other Additional assistant manager of operations?: No Type of Anesthesia: General and Local RN Documented Start/Stop Times: Operation Date: 12/02/24 09:30 Case Time Into Pre-Op 12/02/24 08:02 Out of Pre-Op 12/02/24 09:33 Anesthesia Start 12/02/24 09:38 Into Room 12/02/24 09:38 Procedure Start 12/02/24 09:57 Procedure End 12/02/24 10:47 Anesthesia End 12/02/24 10:52 Out of Room 12/02/24 10:52 Into Recovery 12/02/24 10:55 Procedure Start Time: 09:57 Procedure Stop Time: 10:47 Select all DRAINS/GRAFTS/IMPLANTS that apply: None Special Medications: ICG preop Estimated Blood Loss: 10 mL Specimen collected: Yes Description of specimen(s) removed: Gallbladder Description of surgery: The patient is an 84-year-old female recently seen through the office with periodic right upper quadrant pain, bloating and nausea. She underwent an ultrasound that showed initially concern for a 2 cm polyp in the gallbladder. However, MRI did not indicate a polyp. Her symptoms seem consistent with biliary colic and so a robotic cholecystectomy was offered to her. We discussed the details of the plan procedure and she wished to proceed. The patient was brought to the operating today following informed consent. ICG was administered preoperatively. She was placed supine on the operative table with arms outstretched and arm boards. A general endotracheal anesthesia was induced. Once asleep her arms were comfortably tucked at her sides. Her abdomen was then prepped and draped in the usual sterile manner. An 8 mm incision was made just below the umbilicus for which a 5 mm trocar was placed optically. This was placed without incident. Once in place the abdomen is then fully insufflated with CO2 gas. A 5 mm 0 degree scope was inserted. There were no signs of bowel or vascular injury. Next an 8 mm trocar was placed on the right side of the abdomen as well as another trocar on the left side of the abdomen. Also a fourth trocar was placed in the left upper quadrant. All of these were placed without difficulty and under direct visualization. The original umbilical trocar was switched to an 8 mm trocar as well. The patient was then positioned with some head up and rolled to the left. The da Dorina robot was then rolled into position and was docked. Once all instruments were in place, the gallbladder was visualized and grasped and reflected in a cephalad direction. There was some adhesions to the undersurface of the gallbladder. These were taken down using electrocautery connected to L-hook. The peritoneum on either side of the gallbladder was then incised again using hook electrocautery. This improved mobility of the gallbladder. This was already quite mobile. It was quite distended and fluid-filled. It did not appear to be thickened. I could not appreciate any obvious stones or masses etc. The infundibulum was then dissected. Cystic duct and cystic artery were both identified. They were dissected out circumferentially. The lower third of the gallbladder if not more was dissected off of the liver. At this point there were 2 and only 2 structures going to the gallbladder thus establishing a critical view of safety. ICG was also utilized and confirmed that we had accurately identified the cystic duct. 2 clips were placed proximally on the cystic duct and 1 was placed distally. The artery was clipped in a similar manner. Both structures were then transected using electrocautery. After this the gallbladder was then bovied off the undersurface of the liver. Once freed was placed Endobag and brought out through the left sided trocar site. The fascia was then closed using 0 Maxon with the aid of the suture passer/fascial closure device. Hemostasis was excellent. There were no signs of bowel or vascular injury. The remaining trocars were opened up and insufflation was allowed to escape. Local anesthetic was injected into each of the incisions. The incisions were then closed with 4-0 Vicryl and skin glue. The patient was then awakened from anesthesia and taken to recovery in good condition. Surgical Findings: See operative note Complications Complications: No Admit VTE Documentation VTE Present on Admission: No VTE Mechan Device Prophylaxis: SCD's VTE Pharm Prophylaxis ordered?: No Reason prophylaxis not ordered: Treatment Not Indicated
--- NOTE | 2024-12-02 11:47 | POSTOPAN2_ITS ---
Anesthesia Postop Eval I Sum Postop Eval Completion status Anesthesia document: Postop Eval 1 completed: Yes Anesthesia Postop Eval I Summary Anesthesia Postop Eval I Summary: Anesthesia Postop Eval I: Assessment Summary Airway patent Yes 12/02/24 11:03 SCIENTIFIC INFORMATICS LEADER.JDEF Spontaneous unlabored Yes 12/02/24 11:03 SCIENTIFIC INFORMATICS LEADER.JDEF respirations Mental status Awake 12/02/24 11:03 SCIENTIFIC INFORMATICS LEADER.JDEF nausea No 12/02/24 11:03 SCIENTIFIC INFORMATICS LEADER.JDEF Vomiting No 12/02/24 11:03 SCIENTIFIC INFORMATICS LEADER.JDEF Anesthesia Postop Eval I: Fluid Summary Crystalloid volume administer 1,100 12/02/24 11:03 SCIENTIFIC INFORMATICS LEADER.JDEF (ml) Colloids volume administered ( ml) Blood Product volume administered (ml) Total IV fluid infused 1,100 12/02/24 11:03 SCIENTIFIC INFORMATICS LEADER.JDEF Anesthesia Postop Eval I: Summary Notes Anesthesia Complication No 12/02/24 11:03 SCIENTIFIC INFORMATICS LEADER.JDEF Anesthesia Complication Comment: Post-operative progress note Anesthesia: Postop Eval II Evaluation Mental status: Awake Pain Level: 2 nausea: No Vomiting: No
--- NOTE | 2024-12-02 11:47 | PCM.POSTANE2 ---
Anesthesia Postop Eval I Sum Postop Eval Completion status Anesthesia document: Postop Eval 1 completed: Yes Anesthesia Postop Eval I Summary Anesthesia Postop Eval I Summary: Anesthesia Postop Eval I: Assessment Summary Airway patent Yes 12/02/24 11:03 SNOW REMOVAL SUPERVISOR.JDEF Spontaneous unlabored Yes 12/02/24 11:03 SNOW REMOVAL SUPERVISOR.JDEF respirations Mental status Awake 12/02/24 11:03 SNOW REMOVAL SUPERVISOR.JDEF nausea No 12/02/24 11:03 SNOW REMOVAL SUPERVISOR.JDEF Vomiting No 12/02/24 11:03 SNOW REMOVAL SUPERVISOR.JDEF Anesthesia Postop Eval I: Fluid Summary Crystalloid volume administer 1,100 12/02/24 11:03 SNOW REMOVAL SUPERVISOR.JDEF (ml) Colloids volume administered ( ml) Blood Product volume administered (ml) Total IV fluid infused 1,100 12/02/24 11:03 SNOW REMOVAL SUPERVISOR.JDEF Anesthesia Postop Eval I: Summary Notes Anesthesia Complication No 12/02/24 11:03 SNOW REMOVAL SUPERVISOR.JDEF Anesthesia Complication Comment: Post-operative progress note Anesthesia: Postop Eval II Evaluation Mental status: Awake Pain Level: 2 nausea: No Vomiting: No
== END 2024-12-02 13:25 | disposition home or self-care (01) ==
LOC: SDC 08:00 → AC 08:01
PROVIDERS: Anesthesiology; PCP Family Medicine; Referring Provider Surgery; Visit Provider Surgery
PROC: 0FT44ZZ Resection of Gallbladder, Percutaneous Endoscopic Approach (ICD-10-PCS; CPT 47562; principal; 2024-12-02 09:15)
DX: K80.50 Calculus of bile duct without cholangitis or cholecystitis without obstruction (principal); Z98.1 Arthrodesis status; K21.9 Gastro-esophageal reflux disease without esophagitis; E78.5 Hyperlipidemia, unspecified; Z79.899 Other long term (current) drug therapy
CPT/HCPCS: 47563; S2900; 00790; 36415; 84443; 88304; 93005; J2405

== ENCOUNTER 2024-12-17 20:09 | Inpatient (IN) | payer MEDICARE, OTHER, SELFPAY ==
[2024-12-17 20:10] VITALS: BP 119/88; PULSE 160; RESP 16; TEMP 37.3; O2SAT 97; BMI 22.8
--- NOTE | 2024-12-17 20:35 | CT_ITS ---
PROCEDURE: ABDOMEN/PELVIS W IV CONT ONLY 12/17/2024 REASON FOR EXAM: CONSTIPATION, ABDOMINAL PAIN TECHNIQUE: Abdomen and pelvis CT with intravenous contrast. Coronal and Sagittal reconstruction series were provided. CONTRAST: Isovue 370 VOLUME: 91 mL. One or more dose reduction techniques were used (e.g., Automated exposure control, adjustment of the mA and/or kV according to patient size, use of iterative reconstruction technique. RADIATION DOSE SUMMARY: CTDlvol: 9.97+ 8.70 mGy DLP: 460.35 mGycm COMPARISON: 11/11/2024. FINDINGS: Coronary artery calcifications. Mild bibasilar linear atelectasis versus scar. The peripheral soft tissues are unremarkable. A sacral stimulator is present. Grade 1 anterolisthesis of L4 on L5. Degenerative changes of the spine. Degenerative changes of the hips. Mild atherosclerosis. Normal caliber abdominal aorta. No suspicious lymphadenopathy. Unremarkable liver. Surgically absent gallbladder. The pancreas, spleen, adrenals are unremarkable. Left kidney cyst. Additional bilateral subcentimeter renal lesions that are too small to characterize. Symmetric enhancement of the bilateral kidneys. Right kidney extrarenal pelvis. Unremarkable appearance of the urinary bladder. Atrophic uterus which is within normal limits for the patient's age. Normal caliber large and small bowel. Colonic diverticulosis. Dense colonic stool. CT/Abdomen/Pelvis W IV Cont ONLY IMPRESSION: Dense colonic stool which may suggest constipation. Colonic diverticulosis. Chronic and ancillary findings as above. Reading Location: [place] [id number]
--- NOTE | 2024-12-17 20:43 | EX.ED.GENINJ ---
HPI History of Present Illness Chief Complaint: Nausea/Vomiting Narrative Narrative: Chief complaint and HPI: Nausea, vomiting, constipation. History taken by patient as well as medical record. 84-year-old female with past medical history of osteoporosis, HLD presents for evaluation of nausea, vomiting, constipation. Onset of symptoms 3 days. Patient states she usually does not suffer from constipation. Took Metamucil today with no relief. Patient states she was concerned she had a UTI due to her symptoms in which she followed up with urology, Dr. Hendricks today. States that she was started on antibiotics after positive urine. On chart review, patient had a recent laparoscopic cholecystectomy with Dr. Cano on 12/02. Patient states that she has been doing well from the surgery. She denies any fever, chills, shortness of breath, URI symptoms, chest pain. States she has diffuse abdominal pain. Associated symptom is decreased p.o. intake. Review of systems: See HPI Medications: As listed on the chart Allergies: As listed on the chart PFSH: Per chart Vital signs: As listed on the chart. Reviewed. Physical exam: Gen: A&O x3, NAD Head: Normocephalic, atraumatic Eyes: No sclera icterus, conjunctiva clear ENT: Dry mucous membranes Neck: Trachea midline, No JVD CV: Tachycardic, regular rhythm, no murmurs, no peripheral edema Resp: Lungs CTA BL, no w/r/c GI: Abd soft, non-distended, mildly tender to palpation diffusely, no r/r/g : No CVA tenderness Musc: Full ROM, no deformity Skin: Warm, dry Neuro: Alert, oriented, grossly intact, sensation intact Psych: Cooperative, appropriate mood and affect [facility] Medical History Gallbladder polyp Wears glasses Post-menopausal Cancer Thyroid disease Gastric reflux Non-smoker Shortness of breath on exertion Chronic cough Leg cramps Normal Holter exam History of echocardiogram History of stress test Cardiology follow-up encounter Chest pain RLS (restless legs syndrome) Osteoporosis Arthritis Hyperlipidemia Tachycardia Asthma Lung nodules Home Medications ?Medication ?Instructions ?Recorded ?Last Taken ?Type denosumab 60 mg/mL subcutaneous 60 mg subcut .Q6 MONTHS 04/17/20 Unknown History syringe liothyronine 5 mcg tablet (Cytomel) 5 mcg PO DAILY 04/21/23 12/02/24 History calcium 600 mg (as 1 tab PO BID 09/11/23 Unknown History carbonate)-vitamin D3 20 mcg (800 unit) tablet mecobalamin (vitamin B12) 1,000 1,000 mcg PO DAILY 09/11/23 Unknown History mcg chewable tablet diltiazem HCl 30 mg tablet 30 mg PO QDAY 10/04/23 12/02/24 History sulindac 200 mg tablet 200 mg PO BID 08/26/24 Unknown History cholecalciferol (vitamin D3) 25 125 mcg PO DAILY 10/08/24 Unknown History mcg (1,000 unit) capsule (Vitamin D3) magnesium 250 mg tablet 400 mg PO DAILY 10/08/24 Unknown History turmeric 400 mg capsule 500 mg PO DAILY 10/18/24 Unknown History omeprazole 40 mg capsule,delayed 40 mg PO BID 12/02/24 12/02/24 History release ondansetron HCl 4 mg tablet 4 mg PO Q6H PRN nausea and 12/12/24 Unknown Rx vomiting #8 tabs Allergy/AdvReac Type Severity Reaction Status Date / Time No Known Allergies Allergy Verified 12/17/24 20:12 Family History Mother Rheumatoid arthritis Father Rheumatoid arthritis Other Malignant neoplasm determined by biopsy of testicle Surgical History S/P cholecystectomy History of esophagogastroduodenoscopy (EGD) History of lobectomy of lung H/O vaginal surgery History of surgery on upper extremity Complete tear of sacrospinous ligament Cataract fragments of eye following cataract surgery History of genitourinary surgery S/P cervical spinal fusion Hx of repair of rotator cuff H/O hand surgery History of total right knee replacement (TKR) Social History Smoking Status: Never smoker alcohol intake: current alcohol intake frequency: a few times a week Alcohol type: wine substance use type: does not use EXAM Physical Exam Const Vital Signs: 12/17/24 20:10 12/17/24 20:45 12/17/24 21:16 Temperature 99.1 F 97.9 F Temperature Source Oral Temporal Pulse Rate 160 H 117 H 108 H Respiratory Rate 16 19 H 18 Blood Pressure 119/88 H 135/78 H 143/81 H Blood Pressure Mean 98 97 101 Pulse Ox 97 95 98 Oxygen Delivery Method Room Air 12/17/24 21:16 12/17/24 22:00 Temperature 98 F 98 F Temperature Source Temporal Temporal Pulse Rate 106 H 106 H Respiratory Rate 17 16 Blood Pressure 143/81 H 146/85 H Blood Pressure Mean 101 105 Pulse Ox 97 96 Oxygen Delivery Method Room Air MDM MDM MDM Narrative Medical decision making narrative: 84-year-old female with past medical history of osteoporosis, HLD presents for evaluation of nausea, vomiting, constipation. Onset 3 days. Associated symptom is decreased p.o. intake. Patient had recent laparoscopic cholecystectomy on 12/02. Healed well from surgery. Denies taking narcotics. Differential diagnosis includes but is not limited to viral illness, WALTER, electrolyte abnormality, UTI, obstruction, colitis, intra-abdominal abscess. NS bolus, Zofran ordered for symptoms. Abdominal pain workup ordered including CT abdomen and pelvis. EKG reviewed see below. CBC with leukocytosis of 14.9. No anemia. CMP negative for significant electrolyte abnormality or WALTER. Patient has baseline transaminitis and elevated alkaline phosphatase. Recently just had her gallbladder removed. Lactic acid unremarkable. Lipase unremarkable. UA positive for UTI. Urine culture sent. On chart review, patient has a previous urine culture with Proteus that was pansensitive. CT abdomen pelvis shows constipation with colonic diverticulosis. Patient will warrant admission given that she cannot tolerate p.o. intake. I do think she would benefit from IV antibiotics and hydration. Patient was updated of all the results and confirmed understand the plan. She was offered an enema which she accepted therefore this was ordered. Patient was discussed with the hospitalist service who accepted admission. EKG: Interpreted by me/EM physician: EKG shows sinus tachycardia with a heart rate of 123. Nonspecific ST changes which I think are secondary to rate. No ST elevation Impression: 1. UTI 2. Constipation 3. Inability to tolerate p.o. intake with nausea and vomiting Lab Data Labs: Laboratory Results - last 24 hr 12/17/24 12/17/24 12/17/24 20:24 20:45 21:30 WBC 14.9 H RBC 4.17 L Hgb 13.1 Hct 39.0 MCV 93.5 MCH 31.4 MCHC 33.6 RDW Std Deviation 44.2 H RDW Coeff of [place] 12.9 Plt Count 382 MPV 9.1 Immature Gran % (Auto) 0.300 Neut % (Auto) 81.9 H Lymph % (Auto) 11.0 L [place] % (Auto) 5.6 Eos % (Auto) 0.7 Baso % (Auto) 0.5 Absolute Neuts (auto) 12.2 H Absolute Lymphs (auto) 1.64 Nucleated RBC % 0 Sodium 135 Potassium 3.7 Chloride 98 Carbon Dioxide 22.9 Anion Gap 14 BUN 18 Creatinine 0.79 Estim Creat Clear Calc 44.85 L Est GFR (MDRD) Non-Af 75 BUN/Creatinine Ratio 23.2 H Glucose 110 H Lactic Acid < 1.0 Calcium 9.7 Total Bilirubin 0.70 AST 38 H ALT 39 H Alkaline Phosphatase 199 H Total Protein 7.0 Albumin 3.9 Globulin 3.2 Albumin/Globulin Ratio 1.2 Lipase 21 Urine Color Yellow Urine Clarity Cloudy Urine pH 6.0 Ur Specific [place] 1.015 Urine Protein 30 H Urine Glucose (UA) Normal Urine Ketones 50 H Urine Occult Blood 150 H Urine Nitrite Positive H Urine Bilirubin Negative Urine Urobilinogen 1 H Ur Leukocyte Esterase 500 H Urine RBC 0-5 SEEN Urine WBC >100 SEEN Ur Squamous Epith Cells 0-5 SEEN Urine Bacteria 1+ Urine Mucus 0 SEEN Radiography Diagnostic Testing: Clinical Impression(s) from Imaging Studies Abdomen/Pelvis CT 12/17/24 20:35 IMPRESSION: Dense colonic stool which may suggest constipation. Colonic diverticulosis. Chronic and ancillary findings as above. Reading Location: [place] [address] Discharge Plan Triage Chief Complaint: Nausea/Vomiting ED Provider: Albert Julian Dx/Rx/DC Orders Prescriptions: No Action mecobalamin (vitamin B12) 1,000 mcg tablet,chewable 1,000 mcg PO DAILY diltiazem HCl 30 mg tablet 30 mg PO QDAY sulindac 200 mg tablet 200 mg PO BID ondansetron HCl 4 mg tablet 4 mg PO Q6H PRN (Reason: nausea and vomiting) Qty: 8 0RF calcium carbonate-vitamin D3 600 mg-20 mcg (800 unit) tablet 1 tab PO BID denosumab 60 MG/ML syringe 60 mg subcut .Q6 MONTHS Rx Instructions: every 6 months liothyronine [Cytomel] 5 mcg tablet 5 mcg PO DAILY turmeric 400 mg capsule 500 mg PO DAILY cholecalciferol (vitamin D3) [Vitamin D3] 25 mcg (1,000 unit) capsule 125 mcg PO DAILY magnesium 250 mg tablet 400 mg PO DAILY omeprazole 40 mg capsule,delayed release(DR/EC) 40 mg PO BID Primary Care Provider: Danielle Paige Referrals: Danielle Paige DO [Primary Care Provider] - Print Language: Belarusian
[2024-12-17] MEDS: Ondansetron 4 MG/2 ML Vial IV (20:44)
[2024-12-17] MEDS: 0.9% Normal Saline (1000mL) 1,000 ML 1000 ML IV (20:44)
[2024-12-17 20:45] VITALS: BP 135/78; PULSE 117; RESP 19; TEMP 36.6; O2SAT 95
[2024-12-17 20:58] LABS: Absolute Lymphocyte Count 1.64 X10^3/uL (0.83-4.51); Absolute Neutrophil Count 12.2 X10^3/uL (2.0-7.7); Basophil# 0.07 X10^3/uL; Basophil% 0.5 % (0-1); Eosinophil# 0.11 X10^3/uL; Eosinophils% 0.7 % (0-5); Hemoglobin 13.1 g/dL (12.0-15.0); Lymphocyte # 1.64 X10^3/ul (0.83-4.51); Mean Corp Hgb Conc 33.6 g/dL (32-36); Mean Corpuscular Hgb 31.4 pg (27.0-32.0); Mean Corpuscular Volume 93.5 fL (81-99); Mean Platelet Vol. 9.1 fl (6.2-12.0); Monocyte# 0.83 X10^3/uL; Monocyte% 5.6 % (0-10); NRBC Flagged by Analyzer 0 % (0-5); Neutrophil # 12.17 X10^3/uL (2.7-7.7); Neutrophil % 81.9 % (47-70); Platelet Count 382 K/mm3 (150-450); RBC Distribution Width CV 12.9 % (11.6-14.6); RBC Distribution Width SD 44.2 fl (35.1-43.9); Red Blood Count 4.17 M/mm3 (4.2-5.4); White Blood Count 14.9 K/mm3 (4.4-11.0)
--- NOTE | 2024-12-17 20:58 | EKG12_ITS ---
Test Reason : N/V Blood Pressure : */* mmHG Vent. Rate : 123 BPM Atrial Rate : 123 BPM P-R Int : 138 ms QRS Dur : 82 ms QT Int : 300 ms P-R-T Axes : 45 35 83 degrees QTcB Int : 429 ms Sinus tachycardia Nonspecific ST and T wave abnormality Abnormal ECG Confirmed by CHARLINE PAYNE, JANNETTE ([id number]), proposal editor MICHELLE NIETO ([id number]) on 12/23/2024 7:09:51 AM Referred By: Confirmed By: JANNETTE OLIVIER MD
[2024-12-17 21:15] LABS: Lactic Acid < 1.0 mmol/L (0.0-2.0)
[2024-12-17 21:16] VITALS: BP 143/81; PULSE 106; PULSE 108; RESP 17; RESP 18; TEMP 36.6; O2SAT 97; O2SAT 98
[2024-12-17 21:20] LABS: ALB/GLOB Ratio 1.2 RATIO (0.9-2.4); AST(SGOT) 38 U/L (<=31); Alanine Aminotransfer ALT/SGPT 39 U/L (<=34); Albumin, Serum 3.9 g/dL (3.4-4.8); Alkaline Phosphatase 199 U/L (35-104); Anion Gap 14 (5-15); BUN 18 mg/dL (4-19); BUN/Creat Ratio 23.2 RATIO (10-20); Calcium,Total 9.7 mg/dL (7.6-11.0); Carbon Dioxide 22.9 mmol/L (21.0-32.0); Chloride 98 mmol/L (98-108); Creatinine, Serum 0.79 mg/dL (0.70-1.20); EST Glomerular Filtration Rate 75 (>60); Estimated Creatinine Clearance 44.85 ml/min (50-250); Globulin 3.2 g/dL (2.2-4.2); Glucose 110 mg/dL (70-99); Lipase 21 U/L (13-75); Potassium 3.7 mmol/L (3.3-5.1); Sodium Level 135 mmol/L (133-145)
[2024-12-17 21:31] LABS: Mucous, Urine 0 SEEN /hpf (<or=2+)
[2024-12-17 21:37] LABS: Color, Urine Yellow (Yellow); Glucose, Dipstick Normal (Normal); Ketone-Dipstick 50 mg/dl (Negative); Leukocyte Esterase-Dipstick 500 /ul (Negative); Nitrite-Dipstick Positive (Negative); Occult Blood-Urine 150 /ul (Negative); Protein-Dipstick 30 mg/dl (Negative); Specific Gravity, Urine 1.015 (1.002-1.030); Urine Bilirubin Dipstick Negative (Negative); Urine Clarity Cloudy (Clear); Urine Urobilinogen 1 mg/dl (Normal)
[2024-12-17 21:50] LABS: White Blood Cells >100 SEEN /hpf (0-5)
[2024-12-17 21:53] LABS: Bacteria 1+ /hpf (None Seen); Red Blood Cells-Urine 0-5 SEEN /hpf (0-5); Squamous Epithelial Cells - UA 0-5 SEEN /hpf (5-10)
[2024-12-17 22:00] VITALS: BP 146/85; PULSE 106; RESP 16; TEMP 36.6; O2SAT 96
--- NOTE | 2024-12-17 22:41 | HP.PCM.HOS_ITS ---
HPI - General General Date of Admission: 12/17/24 Date of Service: 12/17/24 Chief Complaint: N/V, constipation, recent UTI dx on day of presentation. HPI Narrative The patient is an 84 y/o F w/ PMHx: RLS, HTN, GERD, Asthma, CKD stage II per GFR trending who presents to the [facility] ED on 12/17/2024 with history of nausea, emesis and recent issues with constipation ongoing for the last 3 days with self administration of Metamucil on day of presentation without relief with concern for possible urinary tract infection with noted recent urinary frequency increased above baseline with evaluation by urology on day of presentation started on antibiotics secondary to concerning urine complicated by recent cholecystectomy per Dr. Dutta on 12/02/2024 prompting eventual ED evaluation to be cautious. Workup in the ED included T99.1, heart rate 160, BP 119/88, respiratory rate 16, 97% on room air with most recent repeat vitals T98, heart rate 106, BP 146/85, respiratory rate 16, 96% on room air, CBC with WBC 14.9, hemoglobin 13.1, platelet 322 with left shift, BMP with BUN/creatinine 18/0.79, GFR 75, glucose 110, hepatic profile with AST/ALT 38/39, alk phos 199, lactic acid less than 1, lipase 21, urinalysis with specific gravity 1.015, protein 30, ketone 50, occult blood 150, positive nitrate, leukocyte Estrace 500 with urine WBCs greater than 100 with 1+ urine bacteria, urine culture pending per ED, CT abdomen and pelvis with dense colonic stool possibly constipation, colonic diverticulosis with chronic changes with no acute intra-abdominal findings. In the ED patient ministered Zofran 4 mg IV x 1, 1 L normal saline, Zofran 1 g IV x 1. Most recent noted urine culture of 09/28/2022 with Proteus with pansensitivity noted. [facility] Medical History Gallbladder polyp Wears glasses Post-menopausal Cancer Thyroid disease Gastric reflux Non-smoker Shortness of breath on exertion Chronic cough Leg cramps Normal Holter exam History of echocardiogram History of stress test Cardiology follow-up encounter Chest pain RLS (restless legs syndrome) Osteoporosis Arthritis Hyperlipidemia Tachycardia Asthma Lung nodules Home Medications ?Medication ?Instructions ?Recorded ?Last Taken ?Type denosumab 60 mg/mL subcutaneous 60 mg subcut .Q6 MONTH S 04/17/20 Unknown History syringe liothyronine 5 mcg tablet (Cytomel) 5 mcg PO DAILY 01/0612/02/24 History calcium 600 mg (as 1 tab PO BID 09/11/23 Unknow n History carbonate)-vitamin D3 20 mcg (800 unit) tablet mecobalamin (vitamin B12) 1,000 1,000 mcg PO DAILY Unknown History mcg chewable tablet diltiazem HCl 30 mg tablet 30 mg PO QDAY 10/04/2311/14 History sulindac 200 mg tablet 200 mg PO BID 08/26/24 Unkno wn History cholecalciferol (vitamin D3) 25 125 mcg PO DAILY 10/08 Unknown History mcg (1,000 unit) capsule (Vitamin D3) magnesium 250 mg tablet 400 mg PO DAILY 10/08/24 Unk nown History turmeric 400 mg capsule 500 mg PO DAILY 10/18/24 Unk nown History omeprazole 40 mg capsule,delayed 40 mg PO BID 12/02/24 12/02/24 History release ondansetron HCl 4 mg tablet 4 mg PO Q6H PRN nausea and 12/12/24 Unknown Rx vomiting #8 tabs oxycodone-acetaminophen 5 mg-325 1 tab PO Q8 PRN pain 12/17/24 Unknown History mg tablet Allergy/AdvReac Type Severity Reaction Status Date / Time No Known Allergies Allergy Verified 12/17/24 20:12 Family History Mother Rheumatoid arthritis Father Rheumatoid arthritis Other Malignant neoplasm determined by biopsy of testicle Surgical History S/P cholecystectomy History of esophagogastroduodenoscopy (EGD) History of lobectomy of lung H/O vaginal surgery History of surgery on upper extremity Complete tear of sacrospinous ligament Cataract fragments of eye following cataract surgery History of genitourinary surgery S/P cervical spinal fusion Hx of repair of rotator cuff H/O hand surgery History of total right knee replacement (TKR) Social History (Updated 12/17/24 @ 23:[address] Ale Newton MD) household members: none Smoking Status: Never smoker alcohol intake: current alcohol intake frequency: a few times a week Alcohol type: wine substance use type: does not use ROS ROS Narrative Admission Review of Systems: CONSTITUTIONAL: No weight loss, fever, chills, + weakness or fatigue. HEENT: Eyes: No visual loss, blurred vision, double vision or yellow sclerae. Ears, Nose, Throat: No hearing loss, sneezing, congestion, runny nose or sore throat. SKIN: No rash or itching, lesions, wounds except occasional stage ecchymoses, abrasion, recent operative intervention status post cholecystectomy with expected incisions. CARDIOVASCULAR: No chest pain, chest pressure or chest discomfort, palpitations, edema, orthopnea, syncopal events. RESPIRATORY: No shortness of breath, cough or sputum, wheezing, hemoptysis. GASTROINTESTINAL: + Abdominal discomfort, distention, constipation, nausea, emesis. No diarrhea, melena, BRBPR. GENITOURINARY: + Increased urinary frequency. No dysuria, urgency or retention. NEUROLOGICAL: No headache, dizziness, syncope, paralysis, ataxia, numbness or tingling in the extremities, focal weakness, change in bowel or bladder control, seizure. MUSCULOSKELETAL: No muscle, back pain, joint pain or stiffness. HEMATOLOGIC: No anemia. + Easy bleeding/bruising. LYMPHATICS: No enlarged nodes. No history of splenectomy. PSYCHIATRIC: No history of depression or anxiety. ENDOCRINOLOGIC: No reports of sweating, cold or heat intolerance. No polyuria or polydipsia. ALLERGIES: + History of asthma. Vital Signs Vital Signs Vital Signs: 12/17/24 20:10 12/17/24 20:45 12/17/24 21:16 Temperature 99.1 F 97.9 F Temperature Source Oral Temporal Pulse Rate 160 H 117 H 108 H Respiratory Rate 16 19 H 18 Blood Pressure 119/88 H 135/78 H 143/81 H Blood Pressure Mean 98 97 101 Pulse Ox 97 95 98 Oxygen Delivery Method Room Air 12/17/24 21:16 12/17/24 22:00 Temperature 98 F 98 F Temperature Source Temporal Temporal Pulse Rate 106 H 106 H Respiratory Rate 17 16 Blood Pressure 143/81 H 146/85 H Blood Pressure Mean 101 105 Pulse Ox 97 96 Oxygen Delivery Method Room Air Weight Weight: 129 lb Body Mass Index (BMI) 22.8 Physical Exam Narrative Physical Examination: General: Awake, alert, oriented x 3 and cooperative, seated upright in the ED bed, fatigued, notes still some nausea although abdomen less uncomfortable following recent enema with some success. Skin: Normal color, normal turgor, no icterus, no cyanosis except occasional stage ecchymoses, abrasion, status post recent cholecystectomy with expected incisions well-healing. HEENT: AT/NC, EOMI, PERRLA, moderately dry MM, no carotid bruits or JVD noted. Lungs: CTA bilaterally, moderate effort, mild decrease BL bases, no rales, ronchi or wheezing. Heart: Regular rate and rhythm; no gallop, rub audible. Abdomen: Soft, mild generalized discomfort with palpation with no rebound or guarding, mildly distended and tympanitic, hyperactive BS, no appreciated HSM, see skin. Extremities: No cyanosis, clubbing, or edema. Neurological: Patient awake, alert, oriented as noted, cognitive function intact; pupils equally reactive to light and accommodation, cranial nerves gross normal, moving all 4 extremities, no focal deficits, strength moderately to severely globally decreased. Psychiatric: Affect appears flat, fatigued, no acute evidence of depressive or anxiety feelings. Results Lab / Micro Data 12/17/24 20:24 12/17/24 20:24 Labs: Laboratory Results - last 24 hr 12/17/24 20:24: WBC 14.9 H, RBC 4.17 L, Hgb 13.1, Hct 39.0, MCV 93.5, MCH 31.4, MCHC 33.6, RDW Std Deviation 44.2 H, RDW Coeff of [place] 12.9, Plt Count 382, MPV 9.1, Immature Gran % (Auto) 0.300, Neut % (Auto) 81.9 H, Lymph % (Auto) 11.0 L, [place] % (Auto) 5.6, Eos % (Auto) 0.7, Baso % (Auto) 0.5, Absolute Neuts (auto) 12.2 H, Absolute Lymphs (auto) 1.64, Nucleated RBC % 0, Sodium 135, Potassium 3.7, Chloride 98, Carbon Dioxide 22.9, Anion Gap 14, BUN 18, Creatinine 0.79, E stim Creat Clear Calc 44.85 L, Est GFR (MDRD) Non-Af 75, BUN/Creatinine Ratio 23.2 H, Glucose 110 H, Calcium 9.7, Total Bilirubin 0.70, AST 38 H, ALT 39 H, A lkaline Phosphatase 199 H, Total Protein 7.0, Albumin 3.9, Globulin 3.2, Albumin/Globulin Ratio 1.2, Lipase 21 12/17/24 20:45: Lactic Acid < 1.0 12/17/24 21:30: Urine Color Yellow, Urine Clarity Cloudy, Urine pH 6.0, Ur Specific [place] 1.015, Urine Protein 30 H, Urine Glucose (UA) Normal, Urine Ketones 50 H, Urine Occult Blood 150 H, Urine Nitrite Positive H, Urine Bilirubin Negative, Urine Urobilinogen 1 H, Ur Leukocyte Esterase 500 H, Urine RBC 0-5 SEEN, Urine WBC >100 SEEN, Ur Squamous Epith Cells 0-5 SEEN, Urine Bacteria 1+, Urine Mucus 0 SEEN Imaging Radiology Impression Abdomen/Pelvis CT 12/17/24 20:35 IMPRESSION: Dense colonic stool which may suggest constipation. Colonic diverticulosis. Chronic and ancillary findings as above. Reading Location: [place] [address] Assessment & Plan Assessment/Plan (1) UTI (urinary tract infection): PLAN: Plan The patient is an 84 y/o F w/ PMHx: RLS, HTN, GERD, Asthma, CKD stage II per GFR trending who presents to the [facility] ED on 12/17/2024 with history of nausea, emesis and recent issues with constipation ongoing for the last 3 days with self administration of Metamucil on day of presentation without relief with concern for possible urinary tract infection with evaluation by urology on day of presentation started on antibiotics secondary to concerning urine complicated by recent cholecystectomy per Dr. Dutta on 12/02/2024 prompting eventual ED evaluation to be cautious. #1. Acute Complicated Urinary Tract Infection with intractable nausea/emesis complicated by #2, unable to take oral outpatient abx : Will admit to [facility] upon ED evaluation remarkable, pending UCx, continue IVFs, monitor I/Os, continue IV Rocephin w/ transition as able pending sensitivities and speciation. PT/OT/case management consulted for discharge planning. #2. Acute constipation complicated by recent cholecystectomy: Some success with enema in the ED with notable evidence of constipation upon evaluation of results of intervention, will maintain on clear liquids, will have as needed antiemetics and if patient is able will then transition to a scheduled oral bowel regimen with hold for loose stools. Will maintain in interim on IV PPI. Once patient is improving certainly may advance diet. #2. Chronic asthma: Per current list not on chronic regimen, will have PRN albuterol, HOB, IS parameters. #3. Chronic Kidney Disease Stage II per GFR trending: Admission BUN/Cr 18/0.79, GFR 75, baseline renal function primarily 0.8-1.0, repeat BMP in AM. #4. Hypothyroidism: Will continue patient home liothyronine regimen. #5. Hypertension: Continue home regimen including diltiazem with hold parameters as needed, PRN hydralazine. #6. GERD: Will temporarily maintain as noted on IV PPI. Transition back to oral regimen once #2 resolved. #7. Restless leg syndrome: Noted history, not on regimen, if necessary may consider adding Requip. #8. DVT prophylaxis: Lovenox. #9. CODE status: Patient GARRY is her daughter and living will is currently in place. Discussed CODE status at length including difference between FULL code, DNR-CCA and DNR-CC status. Following discussions about the differences in these status, requested DNR-CCA, no intubation. Examples discussed and status confirmed. Advanced Care Planning Face to Face Time: 16 minutes. Charges/Coding Visit Charges Inpatient E&M: 24203 Init Hosp L3 Procedures Hospitalists Procedures: 97258 Advncd Care Plan 30 Min
--- NOTE | 2024-12-17 22:57 | ED.RN ---
Patient receiving enema. abx delayed due to this.
[2024-12-17] MEDS: Ceftriaxone 1 GM/50 ML BAG IV (23:00)
--- NOTE | 2024-12-17 23:05 | ED.RN ---
Patient had small bowel movement. C/o lower abd discomfort. Dr. Ingram notified.
[2024-12-17 23:08] VITALS: BP 139/85; PULSE 109; RESP 18; TEMP 36.6; O2SAT 97
--- OUTSIDE RECORDS SUMMARY | 2024-12-17 23:33 | XMS RPT_ITS | CCD ---
Author Organization [facility] Care Team Providers Care Supervisor Cutting Department Name Role Phone MONI HUSAIN Attending Unavailable MONI HUSAIN Admitting Unavailable DANIELLE PAIGE Primary Care Unavailable NADEEM COATES Consulting Unavailable BLAZE SNYDER Consulting Unavailable Rocky Martin MD Unavailable Danielle Paige Primary Care Provider Dr. Danielle Paige Primary Care Provider Dr. Danielle Paige Referring Provider Waylon COSMETICS DEMONSTRATOR, COSMETICS DEMONSTRATOR-C Abril Attending Provider Dr. Danielle Paige Primary Care Provider Dr. Danielle Paige Referring Provider Dr. Lon Berrios Attending Provider [phone] Waylon COSMETICS DEMONSTRATOR, COSMETICS DEMONSTRATOR-C Abril Attending Provider Dr. Danielle Paige Primary Care Provider [phone] Dr. Danielle Paige Referring Provider Dr. Danielle Paige Other Provider Dr. Jelani Mendoza Attending Provider Dr. Danielle Paige Primary Care Provider Dr. Danielle Paige Referring Provider Dr. Danielle Paige Other Provider Dr. Jelani Mendoza Attending Provider [phone] Lon Berrios Attending Provider [phone] Lon Berrios Referring Provider Dr. Lon Berrios Other Provider Dr. Danielle Paige Primary Care Provider Dr. Danielle Paige Referring Provider Dr. Lon Berrios Attending Provider Dr. Lon Berrios Referring Provider Dr. Lon Berrios Other Provider Dr. Sheryl Rankin Attending Provider Dr. Melvin Mcclelland Attending Provider Dr. Danielle Paige Primary Care Provider Dr. Lon Berrios Attending Provider [phone] Danielle Paige Referring Provider [phone]([phone] Liu ONTIVEROS, COSMETICS DEMONSTRATOR-C Tory Attending Provider Dr. Melvin Mcclelland Referring Provider [phone] Melvin Mcclelland Other Provider Royal CARUSO, Danielle Parikh Primary Care Provider [phone] SAVANA LOYD Referring Unavailable VINI MAURER Attending Unavailable DANIELLE PAIGE Primary Care Unavailable Royal CARUSO, Dr. Santos Primary Care Provider Dr. Danielle Paige DO Attending Provider [phone] Danielle Paige DO Referring Provider Kalin ONTIVEROS-CSavanna Attending Provider Abril Nolasco Attending Provider Dr. Aron Frank DO Attending Provider Dr. Aron Frank DO Referring Provider Savanna Linares Referring Provider Monika CARUSO, Dr. Sharp Other Provider [phone] Jerome PAYNE, Dr. Carlos Parikh Attending Provider Jerome PAYNE, Dr. Carlos Parikh Referring Provider Jerome PAYNE, Dr. Carlos Parikh Other Provider Royal DO, Dr. Santos Primary Care Provider Malgiovanni DO, Dr. Santos Attending Provider Kalin, Savanna Attending Unavailable Kalin, Savanna Referring Unavailable Malys, Danielle Primary Care Unavailable Ruben, Catalina Attending Unavailable Ruben, Catalina Referring Unavailable Malys, Danielle Primary Care Unavailable Friend, Aron Attending Unavailable Malys, Danielle Primary Care Unavailable Malys, Danielle Referring Unavailable Malys, Danielle Attending Unavailable Malys, Danielle Referring Unavailable Malys, Danielle Primary Care Unavailable Wanshoaib, Carlos Parikh Attending Unavailable WanCarlos cramer Referring Unavailable Malys, Danielle Primary Care Unavailable Wanek, Carlos Parikh Consulting Unavailable Friend, Aron Attending Unavailable Malys, Danielle Referring Unavailable Malys, Danielle Primary Care Unavailable Friend, Aron Consulting Unavailable Malys, Danielle Attending Unavailable Malys, Danielle Referring Unavailable Malys, Dnaielle Primary Care Unavailable Kalni, Savanna Attending Unavailable Kalin, Savanna Referring Unavailable Malys, Danielle Primary Care Unavailable Wanek, Carlos Parikh Attending Unavailable Malys, Danielle Primary Care Unavailable WanekCarlos Referring Unavailable Malys, Danielle Attending Unavailable Malys, Danielle Primary Care Unavailable Malys, Danielle Attending Unavailable Malys, Danielle Referring Unavailable Malys, Danielle Primary Care Unavailable Kalin, Savanna Attending Unavailable Kalin, Savanna Referring Unavailable Malys, Danielle Primary Care Unavailable Kalin, Savanna Attending Unavailable Kalin, Savanna Referring Unavailable Malys, Danielle Primary Care Unavailable Kalin, Savanna Attending Unavailable Malys, Danielle Referring Unavailable Malys, Danielle Primary Care Unavailable WanekCarlos Attending Unavailable Malys, Danielle Referring Unavailable Malys, Danielle Primary Care Unavailable Kalin, Savanna Attending Unavailable Malys, Danielle Referring Unavailable Malys, Danielle Primary Care Unavailable Kalin, Savanna Attending Unavailable Kalin, Savanna Referring Unavailable Malys, Danielle Primary Care Unavailable Kalin, Savanna Attending Unavailable Kalin, Savanna Referring Unavailable Malys, Danielle Primary Care Unavailable Malys, Danielle Attending Unavailable Malys, Danielle Referring Unavailable Malys, Danielle Primary Care Unavailable Malys, Danielle Attending Unavailable Malys, Danielle Referring Unavailable Malys, Danielle Primary Care Unavailable Waylon ONTIVEROS, Abril Attending Unavailable Malys, Danielle Referring Unavailable Malys, Danielle Primary Care Unavailable Waylon COSMETICS DEMONSTRATOR, Abril Attending Unavailable Malys, Danielle Referring Unavailable Malys, Danielle Primary Care Unavailable Ny Stuart Attending Unavail able Malys, Danielle Referring Unavailable Malys, Danielle Primary Care Unavailable Savanna Gagnon Attending Unavailable Malys, Danielle Referring Unavailable Malys, Danielle Primary Care Unavailable Carlos Cano Attending Unavailable Malys, Danielle Referring Unavailable Malys, Danielle Primary Care Unavailable Savanna Gagnon Attending Unavailable Malys, Danielle Referring Unavailable Malys, Danielle Primary Care Unavailable FriendAron Attending Unavailable Friend, Aron Referring Unavailable Malys, Danielle Primary Care Unavailable Medications Current Medications Medication Drug Class(es) Dates Sig (Normalized) Sig (Original) acetaminophen 500 mg oral tablet (2 sources) Start: 11-05-2020 End: 11-05-2020 take 1 dose by mouth three times daily 1,000 mg, Oral, EVERY 8 HOURS SCHEDULED (3 times per day), First dose on Mihaela 11/05/20 at 2200 Maximum dose of acetaminophen is 4000 mg from all sources in 24 hours. albuterol 0.833 mg/ml / ipratropium bromide 0.167 mg/ml inhalation solution (2 sources) Anticholinergic, beta2-Adrenergic Agonist Start: 11-08-2020 ipratropium-albuter ol (DUONEB) nebulizer solution 1 ampule Start: 11-05-2020 End: 11-07-2020 1 ampule, Inhalation, EVERY 4 HOURS WHILE AWAKE, First dose on Mihaela 11/05/20 at 2000 aspirin 81 mg delayed release oral tablet (3 sources) Platelet Aggregation Inhibitor, Nonsteroidal Anti-inflammatory Drug Start: 06-20-2013 take 1 tablet by mouth once daily aspirin, enteric coated (ASPIR-81) 81 mg EC tablet Take 1 tablet by mouth once daily. 0 06/20/2013 Active bisacodyl 10 mg rectal suppository (1 source) Stimulant Laxative Start: 11-07-2020 bisacodyl (DULCOLAX) suppository 10 mg calcium carbonate 1500 mg oral tablet (1 source) take 1 tablet by mouth once daily calcium carbonate 600 MG TABS tablet Take 1 tablet by mouth daily 0 Active calcium carbonate 1500 mg / cholecalciferol 800 unt oral tablet (20 sources) Vitamin D Start: 12-06-2014 End: 09-11-2023 Calcium Carbonate-Vitami n D3 600 mg-20 mcg (800 unit) tablet Active 1 {tbl} PO TWICE A DAY September 11, 2023 3:29pm Start: 12-06-2014 End: 09-11-2023 take 1 tablet by mouth twice daily Calcium Carbonate-Vitamin D3 Active 1 TABLET PO TWICE A DAY September 11, 2023 3:29pm calcium, elemental, tab (3 sources) Start: 06-20-2013 take 1 tablet by mouth twice daily calcium, elemental, tab Take 1 tablet by mouth twice daily. 0 06/20/2013 Active cholecalciferol 0.025 mg oral capsule (20 sources) Vitamin D Start: 10-08-2024 take 1 capsule by mouth once daily Cholecalciferol (Vitamin D3) (Vitamin D3) 25 mcg (1,000 unit) capsule Active 125 ug PO DAILY October 08, 2024 12:00am Start: 10-08-2024 take 1 capsule by mo [facility] once daily Cholecalciferol (Vitamin D3) (Vitamin D3) 25 mcg (1,000 unit) capsule Active 25 ug PO DAILY October 08, 2024 12:00am Start: 10-04-2023 End: 08-26-2024 take 1 tablet by mouth once daily Cholecalciferol (Vitamin D3) 50 mcg (2,000 unit) tablet Discontinued 50 ug PO DAILY October 04, 2023 12:00am August 26, 2024 5:28pm Start: 05-14-2018 VITAMIN D3 CAP S take 1 capsule once daily CHOLECALCIFEROL CAPS [id number] Catalina Wilkes LPN 1 ml denosumab 60 mg/ml prefilled syringe (20 sources) RANK Ligand Inhibitor Start: 04-17-2020 Denosuma b 60 MG/ML syringe Active 60 mg SC .Q6 MONTHS April 17, 2020 12:00am every 6 months Start: 04-17-2020 inject 60 mg by subc utaneous injection every month Denosumab Active 60 MG SQ EVERY MONTH April 17, 2020 12:00am every 6 months Start: 05-14-2018 inject 60 mg by subc utaneous injection every month Denosumab 60 MG/ML syringe Active 60 mg SQ EVERY MONTH April 17, 2020 12:00am every 6 months diclofenac sodium 75 mg / miSOPROStol 0.2 mg delayed release oral tablet (1 source) Nonsteroidal Anti-inflammatory Drug, Prostaglandin E1 Analog take 1 tablet by mouth twice daily diclofenac-miSOPROStol (ARTHROTEC 75) 75-0.2 MG per tablet Take 1 tablet by mouth 2 times daily 0 Active dilTIAZem hydrochloride 30 mg oral tablet (17 sources) Calcium Channel Nataly Star t: 09-15 24 take 1 tablet by mouth once daily Diltiazem Hcl 30 mg tablet Active 30 mg PO daily October 04, 2023 12:00am docusate sodium 50 mg / sennosides, retirement 8.6 mg oral tablet (1 source) Star t: 10-16 sennosides-docusate sodium (SENOKOT-S) 8.6-50 MG tablet 1 tablet 0.4 ml enoxaparin sodium 100 mg/ml prefilled syringe (1 source) Low Molecular Weight Heparin Star t: 10-16 inject 40 mg by subcutaneous injection once daily 40 mg, Subcutaneous, DAILY, First dose on Mihaela 11/05/20 at 2000 fluticasone propion/salmeterol (ADVAIR HFA INHALATION) (3 sources) take 2 puff(s) by inhalation once daily fluticasone propion/salmeterol (ADVAIR HFA INHALATION) Inhale 2 Puffs as instructed once daily. Active HYDROmorphone (DILAUDID) injection 0.25 mg (1 source) Star t: 10-16 HYDROmorphone (DILAUDID) injection 0.25 mg liothyronine sodium 0.005 mg oral tablet (20 sources) l-Triiodothyronine Star t: 01-03 23 take 1 tablet by mouth once daily Liothyronine (Cytomel) 5 mcg tablet Active 5 ug PO DAILY April 21, 2023 12:00am Magnesium (9 sources) Star t: 09-15 Magnesium 250 mg tablet Active 400 mg PO DAILY October 08, 2024 12:00am Start: 10-08-2024 take 1 tablet by anthony th once daily Magnesium 250 mg tablet Active 250 mg PO DAILY October 08, 2024 12:00am mecobalamin 1 mg chewable tablet (17 sources) Start: 09-11-2023 take 1 tablet by mouth once daily Mecobalamin (Vitamin B12) 1,000 mcg tablet,chewable Active 1000 ug PO DAILY September 11, 2023 1:00am meloxicam 7.5 mg oral tablet (4 sources) Nonsteroidal Anti-inflammatory Drug Start: 06-20-2013 take 1 tablet by mouth once daily meloxicam 7.5 mg tablet Take 1 tablet by mouth once daily. 30 tablet 0 06/20/2013 Active 24 hr metoprolol succinate 50 mg extended release oral tablet (6 sources) beta-Adrenergic Nataly Start: 11-09-2020 take 1.5 tablets by mouth once daily metoprolol succinate (TOPROL XL) 50 MG extended release tablet Take 1.5 tablets by mouth daily 90 tablet 1 11/09/2020 Active Start: 11-08-2020 metoprolol tar trate (LOPRESSOR) tablet 25 mg Start: 11-08-2020 End: 11-08-2020 metoprolol (LOPRESSOR) injec tion 5 mg Start: 11-08-2020 End: 11-08-2020 metoprolol (LOPRESSOR) injec tion 10 mg Start: 11-08-2020 End: 11-08-2020 metoprolol (LOPRESSOR) 5 MG/ 5ML injection Start: 11-08-2020 End: 11-07-2020 metoprolol (LOPRESSOR) injec tion 5 mg Multiple Vitamin (MULTIVITAMIN ADULT PO) (1 source) Multiple Vitamin (MULTIVITAMIN ADULT PO) Take by mouth 0 Active multivitamin (MULTIPLE VITAMINS) tablet (3 sources) Start: 3 take 1 tablet by mouth once daily multivitamin (MULTIPLE VITAMINS) tablet Take 1 tablet by mouth once daily. 0 06/20/2013 Active Multivitamin,Tx-Iron-M inerals (2 sources) Start: 5 take 1 tablet by mouth once daily Multivitamin,Tx-Iron- Minerals Active 1 TABLET PO DAILY December 06, 2014 8:25pm omeprazole 40 mg delayed release oral capsule (20 sources) Proton Pump Inhibitor Start: 5 take 1 capsule by mouth twice daily Omeprazole 40 mg capsule,delayed release(DR/EC) Active 40 mg PO TWICE A DAY December 02, 2024 12:00am Start: 04-17-2020 End: 11-12-2024 take 1 capsule by mouth once daily Omeprazole 40 MG capsule,delayed release(DR/EC) Discontinued 40 mg PO DAILY April 17, 2020 12:00am November 12, 2024 9:29am Start: 05-14-2018 OMEPRAZOLE 40 MG CPDR take 1 capsule once daily OMEPRAZOLE [id number] Catalina Wilkes PEDIATRIC SPEECH LANGUAGE PATHOLOGIST take 40 mg by mouth once daily o meprazole magnesium (PRILOSEC ORAL) Take 40 mg by mouth once daily. Active ondansetron 4 mg oral tablet (2 sources) Serotonin-3 Receptor Antagonist Start: 12-12-2024 take 1 tablet by mouth every six hours as needed for nausea and vomiting Ondansetron Hcl 4 mg tablet Active 4 mg PO EVERY 6 HOURS as needed for nausea and vomiting December 12, 2024 12:00am Start: 11-05-2020 4 mg, Intraven ous, EVERY 6 HOURS PRN, Nausea, Vomiting, Starting [facility] 11/05/20 at 1912 oxyCODONE (1 source) Opioid Agonist Start: 11-07-2020 oxyCODONE (ROXICODONE) immediate release tablet 5 mg perflutren lipid microspheres (DEFINITY) injection 1.65 mg (1 source) Start: 11-08-2020 End: 11-11-2020 perflutren lipid microspheres (DEFINITY) injection 1.65 mg polyethylene glycol [id number] mg powder for oral solution (2 sources) Osmotic Laxative Start: 11-07-2020 End: 12-09-2020 polyethylene glycol (GLYCOLAX) 17 GM/SCOOP powder Indications: Nodule of apex of right lung Take 17 g by mouth daily 510 g 0 11/09/2020 12/09/2020 Active rOPINIRole 1 mg oral tablet (3 sources) Nonergot Dopamine Agonist take 1 tablet by mouth once daily at bedtime rOPINIRole (REQUIP) 1 mg tablet Take 1 mg by mouth daily at bedtime. Active simvastatin 10 mg oral tablet (3 sources) HMG-CoA Reductase Inhibitor take 1 tablet by mouth once daily at bedtime simvastatin (ZOCOR) 10 mg tablet Take 10 mg by mouth daily at bedtime. Active 3 ml sodium chloride 9 mg/ml injection (4 sources) Start: 11-08-2020 End: 11-11-2020 sodium chloride flush 0.9 % injection 5-40 mL Start: 11-05-2020 take 1 dose intraven ously twice daily 5-40 mL, Intravenous, EVERY 12 HOURS SCHEDULED (2 times per day), First dose on Mihaela 11/05/20 at 2100 For Line Patency: Peripheral IV = 5 mL; Midline or Central Line = 10 mL/lumen. If following IV push medication, administer flush at same rate as the IV push. Flush volume is determined by type of infusion therapy being given. For non-viscous solutions use: Peripheral IV = 5 mL Midline or Central Line = 10 mL/lumen For viscous solutions (i.e. blood components, parenteral nutrition, contrast media, or after obtaining blood sample) use: Peripheral IV = 10 mL Midline or Central Line = 20 mL/lumen Start: 11-05-2020 take 5-40 mL intrave nously once as needed 5-40 mL, Intravenous, PRN, Line Care, After every IV line use, Starting Mihaela 11/05/20 at 1912 For Line Patency: Peripheral IV = 5 mL; Midline or Central Line = 10 mL/lumen. If following IV push medication, administer flush at same rate as the IV push. Flush volume is determined by type of infusion therapy being given. For non-viscous solutions use: Peripheral IV = 5 mL Midline or Central Line = 10 mL/lumen For viscous solutions (i.e. blood components, parenteral nutrition, contrast media, or after obtaining blood sample) use: Peripheral IV = 10 mL Midline or Central Line = 20 mL/lumen Start: 11-05-2020 take 25 mL intraveno usly every hour as needed 25 mL, Intravenous, at 100 mL/hr, PRN, If patient receiving piggyback infusions without ordered maintenance IV fluids or with frequent/long duration piggyback infusions, Starting [facility] 11/05/20 at 1912 Administer at the same rate as the piggyback being infused. sulfamethoxazole 800 mg / trimethoprim 160 mg oral tablet (3 sources) Dihydrofolate Reductase Inhibitor Antibacterial, Sulfonamide Antimicrobial Start: 03-21-2024 take 1 tablet by mouth twice daily sulfamethoxazole-trimethoprim (BACTRIM DS) 800-160 mg per tablet Indications: Prophylactic antibiotic Take 1 tablet by mouth two times a day. Start one day before your bladder procedure. 6 tablet 03/21/2024 Active sulindac 200 mg oral tablet (11 sources) Nonsteroidal Anti-inflammator y Drug Start: 08-26-2024 take 1 tablet by mouth twice daily Sulindac 200 mg tablet Active 200 mg PO TWICE A DAY August 26, 2024 1:00am Turmeric extract (6 sources) Start: 10-18-2024 take 1 capsule by mouth once daily Turmeric 400 mg capsule Active 500 mg PO DAILY October 18, 2024 12:00am Completed/Discontinued Medications Medication Drug Class(es) Dates Sig (Normalized) Sig (Original) acetaminophen 325 mg / oxyCODONE hydrochloride 5 mg oral tablet (4 sources) Opioid Agonist Start: 12-02-2024 End: 12-12-2024 Oxycodone-Acetamino phen (Percocet) 5-325 mg tablet Discontinued 1 {tbl} PO Q8H as needed for pain 7 3 December 02, 2024 December 12, 2024 11:39am Start: 11-09-2020 End: 11-16-2020 oxyCODONE-acetaminophen (PER COCET) 5-325 MG per tablet Indications: Nodule of apex of right lung Take 1 tablet by mouth every 6 hours as needed for Pain for up to 7 days. Intended supply: 7 days. Take lowest dose possible to manage pain 28 tablet 0 11/09/2020 11/16/2020 Active [id number] 200 actuat albuterol 0.09 mg/actuat metered dose inhaler (20 sources) beta2-Adrenergic Agonist Start: 08-03-2020 End: 08-27-2024 Albuterol Sulfate 90 mcg/actuation HFA aerosol inhaler Discontinued 2 NMA INHALATION Q4H as needed for cough or chest tightness 8.5 February 12, 2023 6:09am August 27, 2024 2:16pm administer with spacer Start: 08-03-2020 End: 02-12-2023 take 1 puff(s) by inhalation every four hours Albuterol Sulfate Active 2 PUFF INHALATION Q4H 8.5 February 12, 2023 6:09am administer with spacer ALBUTEROL SULFAT E IN Inhale into the lungs 0 Active onabotulinumtoxina 100 unt injection (2 sources) Acetylcholine Release Inhibitor Start: 04-11-2024 End: 04-11-2024 inject 1 dose by intramuscular injection every 30 days 100 Units, INTRAMUSCULAR, ONCE (UP TO 30 DAYS AMB), 1 dose, On Miahela 04/11/24 at 1230, This record documents the total dose provided to patient. See progress note for specific locations and amounts administered. REFRIGERATE - Pharmaceutical Waste: Lab Pack - Start: 04-11-2024 End: 04-11-2024 onabotulinum toxin type A 10 0 Units injection (BOTOX) budesonide 0.25 mg/ml inhalation suspension (20 sources) Corticosteroid Start: 01-05-2021 End: 01-14-2021 take 0.5 mg by inhalation twice daily Budesonide 0.5 mg/2 mL suspension for nebulization Discontinued 0.5 mg INHALATION TWICE A DAY 120 January 05, 2021 12:00am January 14, 2021 6:42am Budesonide-Formo terol (20 sources) Corticosteroid, beta2-Adrenergic Agonist Start: 10-05-2020 End: 10-08-2020 take 1 puff(s) by inhalation twice daily Budesonide-Formot apollo (Symbicort) 160-4.5 mcg/actuation HFA aerosol inhaler Discontinued 2 PUFF INHALATION TWICE A DAY 10.2 October 05, 2020 5:52am October 08, 2020 9:33am Start: 10-05-2020 End: 10-08-2020 Budesonide-Formoterol (Symbi ruddy) 160-4.5 mcg/actuation HFA aerosol inhaler Discontinued 2 NMA INHALATION TWICE A DAY 10.2 October 05, 2020 12:00am October 08, 2020 9:33am Start: 10-05-2020 End: 10-08-2020 take 1 puff(s) by inhalation twice daily Budesonide-Formoterol (Symbicort) 160-4.5 mcg/actuation HFA aerosol inhaler Discontinued 2 PUFF INHALATION TWICE A DAY 10.2 October 05, 2020 12:00am October 08, 2020 9:33am Start: 10-05-2020 End: 10-08-2020 take 1 puff(s) by inhalation twice daily Budesonide-Formoterol (Symbicort) 160-4.5 mcg/actuation HFA aerosol inhaler Discontinued 2 PUFF INHALATION TWICE A DAY 10.2 October 04, 2020 11:00pm October 08, 2020 8:33am CALCIUM CARB-CHOLECALCIFEROL TABS (1 source) Start: 02-24-2015 CALCIUM 600 + D TABS take 2 tablets once daily CALCIUM CARB-CHOLECALCIFEROL TABS [id number] Catalina Wilkes PEDIATRIC SPEECH LANGUAGE PATHOLOGIST calcium chloride 0.0014 meq/ ml / potassium chloride 0.004 meq/ml / sodium chloride 0.103 meq/ml / sodium lactate 0.028 meq/ml injectable solution (2 sources) Start: 11-05-2020 End: 11-06-2020 Intravenous, at 75 mL/hr, CONTINUOUS, Starting [facility] 11/05/20 at 1930 Start: 11-05-2020 End: 11-05-2020 lactated ringers infusion celecoxib 200 mg oral capsule (1 source) Nonsteroidal Anti-inflammatory Drug Start: 11-05-2020 End: 11-05-2020 celecoxib (CELEBREX) capsule 200 mg Start: 11-05-2020 End: 11-05-2020 celecoxib (CELEBREX) capsule 200 mg diclofenac sodium 75 mg delayed release oral tablet (20 sources) Nonsteroidal Anti-inflammatory Drug Start: 10-16-2020 End: 09-11-2023 take 1 tablet by mouth twice daily at mealtime Diclofenac Sodium 75 MG tablet Discontinued 75 mg PO TWICE DAILY WITH MEALS October 16, 2020 12:00am September 11, 2023 3:31pm dicyclomine hydrochloride 10 mg oral capsule (3 sources) Anticholinergic Start: 11-12-2024 End: 12-12-2024 take 1 capsule by mouth twice daily as needed for pain Dicyclomine 10 mg capsule Discontinued 10 mg PO TWICE A DAY as needed for abdominal pain November 12, 2024 12:00am December 12, 2024 11:39am famotidine 20 mg oral tablet (1 source) Histamine-2 Receptor Antagonist Start: 11-05-2020 End: 11-05-2020 famotidine (PEPCID) tablet 20 mg Start: 11-05-2020 End: 11-05-2020 famotidine (PEPCID) tablet 2 0 mg Fluticasone Propion-Salmeterol (20 sources) Corticosteroid, beta2-Adrenergic Agonist Start: 10-24-2023 End: 10-08-2024 Fluticasone Propion-Salmeterol (Advair Hfa) 230-21 mcg/actuation HFA aerosol inhaler Discontinued 2 NMA INHALATION TWICE A DAY 3 October 24, 2023 10:26am October 08, 2024 11:36am Start: 10-24-2023 Fluticasone Pr opion-Salmeterol (Advair Hfa) 230-21 mcg/actuation HFA aerosol inhaler Active 2 NMA INHALATION TWICE A DAY 3 October 24, 2023 10:26am Start: 10-24-2023 Fluticasone Pr opion-Salmeterol (Advair Hfa) 230-21 mcg/actuation HFA aerosol inhaler Active 2 INH INHALATION TWICE A DAY 3 October 24, 2023 10:26am Start: 02-12-2023 End: 10-24-2023 Fluticasone Propion-Salmeter ol (Advair Hfa) 230-21 mcg/actuation HFA aerosol inhaler Discontinued 2 NMA INHALATION TWICE A DAY 3 February 12, 2023 6:09am October 24, 2023 10:26am Start: 02-12-2023 End: 10-24-2023 Fluticasone Propion-Salmeter ol (Advair Hfa) 230-21 mcg/actuation HFA aerosol inhaler Discontinued 2 INH INHALATION TWICE A DAY 3 February 12, 2023 6:09am October 24, 2023 10:26am Start: 02-12-2023 Fluticasone Pr opion-Salmeterol (Advair Hfa) 230-21 mcg/actuation HFA aerosol inhaler Active 2 INH INHALATION TWICE A DAY 3 February 12, 2023 5:09am Start: 02-12-2023 Fluticasone Pr opion-Salmeterol (Advair Hfa) 230-21 mcg/actuation HFA aerosol inhaler Active 2 INH INHALATION TWICE A DAY 3 February 12, 2023 6:09am Start: 01-09-2023 End: 02-12-2023 Fluticasone Propion-Salmeter ol (Advair Hfa) 230-21 mcg/actuation HFA aerosol inhaler Discontinued 2 NMA INHALATION TWICE A DAY 3 January 09, 2023 10:29am February 12, 2023 6:09am Start: 01-09-2023 End: 02-12-2023 Fluticasone Propion-Salmeter ol (Advair Hfa) 230-21 mcg/actuation HFA aerosol inhaler Discontinued 2 INH INHALATION TWICE A DAY 3 January 09, 2023 9:29am February 12, 2023 5:09am Start: 01-09-2023 End: 02-12-2023 Fluticasone Propion-Salmeter ol (Advair Hfa) 230-21 mcg/actuation HFA aerosol inhaler Discontinued 2 INH INHALATION TWICE A DAY 3 January 09, 2023 10:29am February 12, 2023 6:09am Start: 11-22-2022 End: 01-09-2023 Fluticasone Propion-Salmeter ol (Advair Hfa) 230-21 mcg/actuation HFA aerosol inhaler Discontinued 2 NMA INHALATION TWICE A DAY 12 November 22, 2022 12:00am January 09, 2023 10:29am Start: 11-22-2022 End: 01-09-2023 take 1 puff(s) by inhalation twice daily Fluticasone Propion-Salmeterol (Advair Hfa) 230-21 mcg/actuation HFA aerosol inhaler Discontinued 2 PUFF INHALATION TWICE A DAY November 21, 2022 11:00pm January 09, 2023 9:29am Start: 11-22-2022 End: 01-09-2023 take 1 puff(s) by inhalation twice daily Fluticasone Propion-Salmeterol (Advair Hfa) 230-21 mcg/actuation HFA aerosol inhaler Discontinued 2 PUFF INHALATION TWICE A DAY November 22, 2022 12:00am January 09, 2023 10:29am Start: 10-08-2020 End: 01-05-2021 take 1 puff(s) by inhalation twice daily Fluticasone Propion-Salmeterol (Advair Hfa) 230-21 mcg/actuation HFA aerosol inhaler Discontinued 2 PUFF INHALATION TWICE A DAY October 08, 2020 9:33am January 05, 2021 1:24pm Start: 10-08-2020 End: 01-05-2021 Fluticasone Propion-Salmeter ol (Advair Hfa) 230-21 mcg/actuation HFA aerosol inhaler Discontinued 2 NMA INHALATION TWICE A DAY October 08, 2020 12:00am January 05, 2021 1:24pm Start: 10-08-2020 End: 01-05-2021 take 1 puff(s) by inhalation twice daily Fluticasone Propion-Salmeterol (Advair Hfa) 230-21 mcg/actuation HFA aerosol inhaler Discontinued 2 PUFF INHALATION TWICE A DAY October 08, 2020 12:00am January 05, 2021 1:24pm Start: 10-08-2020 End: 01-05-2021 take 1 puff(s) by inhalation twice daily Fluticasone Propion-Salmeterol (Advair Hfa) 230-21 mcg/actuation HFA aerosol inhaler Discontinued 2 PUFF INHALATION TWICE A DAY October 07, 2020 11:00pm January 05, 2021 12:24pm take 2 puff(s) by in halation twice daily fluticasone-salmeterol (ADVAIR HFA) 230-21 MCG/ACT inhaler Inhale 2 puffs into the lungs 2 times daily 0 Active furosemide 20 mg oral tablet (20 sources) Loop Diuretic Start: 08-26-2024 End: 08-27-2024 take 1 tablet by mouth once daily Furosemide 20 mg tablet Discontinued 20 mg PO daily August 26, 2024 1:00am August 27, 2024 2:20pm Start: 10-06-2023 End: 01-04-2024 take 1 tablet by mouth once daily Furosemide 20 mg tablet Discontinued 20 mg PO DAILY October 06, 2023 12:00am January 04, 2024 9:47am gabapentin 300 mg oral capsule (20 sources) Anti-epileptic Agent Start: 08-26-2024 End: 08-27-2024 take 1 capsule by mouth at bedtime Gabapentin 300 mg capsule Discontinued 300 mg PO AT BEDTIME August 26, 2024 1:00am August 27, 2024 2:20pm Start: 09-11-2023 End: 10-04-2023 take 1 capsule by mouth at bedtime Gabapentin 100 mg capsule Discontinued 100 mg PO AT BEDTIME September 11, 2023 1:00am October 04, 2023 2:01pm Start: 11-05-2020 End: 11-05-2020 gabapentin (NEURONTIN) capsu le 100 mg Ginkgo biloba extract (1 source) Start: 10-02-2018 GINKOBA TABS 1 tablet per day GINKGO BILOBA TABS [id number] Sukhi Christie LPN 1 ml HYDROmorphone hydrochloride 1 mg/ml cartridge (3 sources) Opioid Agonist Start: 11-05-2020 End: 11-05-2020 HYDROmorphone (DILAUDID) 1 MG/ML injection Start: 11-05-2020 End: 11-05-2020 HYDROmorphone (DILAUDID) inj ection 0.5 mg HYDROmorphone (DILAUDID) 30 mg in sodium chloride 0.9 % 30 mL SANDSTONE SPLITTER (1 source) Start: 11-05-2020 End: 11-07-2020 HYDROmorphone (DILAUDID) 30 mg in sodium chloride 0.9 % 30 mL SANDSTONE SPLITTER 1 ml LORazepam 2 mg/ml injection (1 source) Benzodiazepine Start: 11-05-2020 End: 11-05-2020 LORazepam (ATIVAN) injection 0.5 mg MULTIPLE VITAMINS-MINERALS (1 source) Start: 02-24-2015 MULTIVITAMIN ADULTS TABS take 1 tablet once daily MULTIPLE VITAMINS-MINERALS [id number] Catalina Wilkes LPN oxaprozin 600 mg oral tablet (17 sources) Nonsteroidal Anti-inflammatory Drug Start: 09-11-2023 End: 08-26-2024 take 1 tablet by mouth twice daily Oxaprozin 600 mg tablet Discontinued 600 mg PO TWICE A DAY September 11, 2023 1:00am August 26, 2024 5:28pm predniSONE 20 mg oral tablet (11 sources) Start: 12-05-2023 End: 01-04-2024 take 3 tablets by mouth once daily at mealtime Prednisone 20 mg tablet Discontinued 60 mg PO daily December 05, 2023 12:00am January 04, 2024 9:48am administer with food or milk Problems Active Problems Problem Classification Problem Date Documented Da te Episodic/Chronic Abdominal pain (20 sources) Abdominal pain; Translations: [Unspecified abdominal pain] Onset: 5 10-17-2024 Episodic Asthma (20 sources) Asthma; Translations: [Unspecified asthma, uncomplicated] 06-03-2022 Chronic Biliary tract disease (6 sources) Polyp of gallbladder; Translations: [Cholesterolosis of gallbladder] 11-18-2024 Episodic Cancer of bronchus; lung (15 sources) History of malignant neoplasm of thoracic cavity structure; Translations: [Personal history of other malignant neoplasm of bronchus and lung] Onset: 5 10-09-2024 Episodic Cardiac dysrhythmias (17 sources) Tachycardia; Translations: [Tachycardia, unspecified] 09-11-2023 Episodic Chronic obstructive pulmonary disease and bronchiectasis (15 sources) Chronic obstructive lung disease; Translations: [Chronic obstructive pulmonary disease, unspecified] 08-03-2020 Chronic Complications of surgical procedures or medical care (2 sources) Seroma following procedure; Translations: [Seroma complicating a procedure] 12-14-2024 Episodic Disorders of lipid metabolism (17 sources) Hyperlipidemia; Translations: [Hyperlipidemia, unspecified] 09-11-2023 Chronic Esophageal disorders (13 sources) Gastro-esophageal reflux disease without esophagitis; Translations: [Gastroesophageal reflux disease] Onset: 0 08-27-2024 Chronic Genitourinary symptoms and ill-defined conditions (1 source) Urge incontinence; Translations: [URGE INCONTINENCE] Onset: 0 Chronic Nausea and vomiting (8 sources) Nausea; Translations: [Nausea] 11-12-2024 Episodic Osteoarthritis (20 sources) Unspecified osteoarthritis, unspecified site; Translations: [Osteoarthrosis of the carpometacarpal joint of the thumb] Onset: 6 10-02-2018 Chronic Osteoporosis (18 sources) Osteoporosis; Translations: [Age-related osteoporosis without current pathological fracture] Onset: 5 09-11-2023 Chronic Other aftercare (1 source) 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) use of non-steroidal anti-inflammatories (NSAID); Translations: [PSYCHIATRY ADULT PHYSICIAN USE NSAID] Onset: 0 Episodic Other aftercare (1 source) Other terminal supervisor (current) drug therapy; Translations: [OTH USP CURRENT DRUG THERAPY] Onset: 0 Episodic Other aftercare (1 source) Antibiotic prophylaxis indicated; Translations: [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) use of antibiotics] 03-21-2024 Episodic Other connective tissue disease (1 source) Presence of right artificial knee joint; Translations: [PRESENCE RT ARTIFICIAL KNEE JOINT] Onset: 0 Chronic Other connective tissue disease (20 sources) History of total knee arthroplasty; Translations: [Presence of right artificial knee joint] 08-03-2020 Chronic Other connective tissue disease (1 source) Arthrodesis status; Translations: [ARTHRODESIS STATUS] Onset: 0 Episodic Other diseases of bladder and urethra (3 sources) Overactive bladder; Translations: [OVERACTIVE BLADDER] Onset: 0 Chronic Other diseases of bladder and urethra (1 source) Overactive bladder; Translations: [Overactive bladder] 04-11-2024 Chronic Other gastrointestinal disorders (1 source) Full incontinence of feces; Translations: [FULL INCONTINENCE OF FECES] Onset: 0 Episodic Other gastrointestinal disorders (20 sources) Dysphagia; Translations: [Dysphagia, unspecified] 08-27-2024 Episodic Other gastrointestinal disorders (12 sources) Abdominal bloating; Translations: [Abdominal distension (gaseous)] 10-17-2024 Episodic Other gastrointestinal disorders (1 source) Abdominal distension (gaseous); Translations: [Abdominal distension (gaseous)] Onset: 5 Episodic Other gastrointestinal disorders (2 sources) Dysphagia, unspecified; Translations: [Dysphagia, unspecified] Onset: 5 Episodic Other hereditary and degenerative nervous system conditions (17 sources) Restless legs; Translations: [Restless legs syndrome] 09-11-2023 Chronic Other liver diseases (20 sources) Alkaline phosphatase raised; Translations: [Abnormal levels of other serum enzymes] 08-27-2024 Episodic Other liver diseases (20 sources) Aspartate aminotransferase serum level raised; Translations: [High aspartate aminotransferase level] 08-27-2024 Episodic Other liver diseases (1 source) Abnormal levels of other serum enzymes; Translations: [Abnormal levels of other serum enzymes] Onset: 5 Episodic Other lower respiratory disease (20 sources) Nodule of lung; Translations: [Solitary pulmonary nodule] Onset: 1 Episodic Other lower respiratory disease (20 sources) Multiple nodules of lung; Translations: [Other nonspecific abnormal finding of lung field] 08-03-2020 Episodic Other lower respiratory disease (17 sources) Dyspnea; Translations: [Shortness of breath] 10-04-2023 Episodic Other lower respiratory disease (6 sources) Shortness of breath; Translations: [Shortness of breath] 10-04-2023 Episodic Other lower respiratory disease (20 sources) Cough; Translations: [Cough] 08-27-2024 Episodic Other nutritional; endocrine; and metabolic disorders (20 sources) Weight decreased; Translations: [Abnormal weight loss] 08-27-2024 Episodic Comment on above: 10/21/2024 - 12 pounds in the past several months11/12/2024 - weight is up 2lbs in the past 3 weeks Other nutritional; endocrine; and metabolic disorders (1 source) Abnormal weight loss; Translations: [Abnormal weight loss] Onset: 5 Episodic Other screening for suspected conditions (not mental disorders or infectious disease) (20 sources) Ultrasonography of abdomen abnormal; Translations: [Abnormal findings on diagnostic imaging of other abdominal regions, including retroperitoneum] Onset: 5 10-09-2024 Episodic Comment on above: elevated 10.2 (January 2024) CT 11/11/2024 Known g allbladder polyp not well seen. Top-normal caliber of the CBD for age at 7 mm.MRI 10/15/2024 (body of report) - A review of the ultrasound suggests there may be a sessile polyp gallbladder measuring over 2 cm.ABD US 10/08/2024 Soft tissue mass within the gallbladder fundus, which may represent gallbladder neoplasm or gallbladder sludge. Spondylosis; intervertebral disc disorders; other back problems (1 source) Degeneration of cervical intervertebral disc; Translations: [Other cervical disc degeneration, unspecified cervical region] Onset: 5 04-09-2015 Chronic Unclassified (2 sources) Cough, unspecified; Translations: [Cough, unspecified] Onset: 5 Unclassified (1 source) Elevation of levels of liver transaminase levels; Translations: [Elevation of levels of liver transaminase levels] Onset: 5 Past or Other Problems Problem Classification Problem Date Documented Da te Episodic/Chronic Nonspecific chest pain (2 sources) Other chest pain; Translations: [Chest pain, unspecified] Onset: 01-24-2024 Episodic Other aftercare (1 source) Encounter for therapeutic drug level monitoring; Translations: [Encounter for therapeutic drug level monitoring] Onset: 02-02-2024 Episodic Other connective tissue disease (1 source) Trochanteric bursitis; Translations: [Trochanteric bursitis, right hip] Onset: 05-16-2018 05-16-2018 Episodic Other connective tissue disease (1 source) H/O: arthrodesis; Translations: [Arthrodesis status] Onset: 04-09-2015 04-09-2015 Episodic Other connective tissue disease (3 sources) Ganglion of wrist; Translations: [Ganglion, unspecified wrist] Onset: 03-14-2016 03-14-2016 Episodic Other non-traumatic joint disorders (1 source) Pain in unspecified joint; Translations: [Pain in unspecified joint] Onset: 08-29-2024 Episodic Unclassified (1 source) Problem Results Test Name Value Interpretation Reference Range Facility Surgery Visit Reporton 12-16 Surgery Visit Report [facility] [address] [place] [address]. [address] [place] [address] OFFICE VISIT Date of Service: 12/16/24 MR#: [id number] Acct: [id number] Name: MARGIE FULTON Rep #: [id number] : 1940 Provider: Dr. Carlos cramer MD Age/Sex: 84/F Location: [facility] Status: Signed Intake Vital Signs 12/02/24 08:13 12/12/24 11:06 Height 5 ft 5 in 5 ft 3 in Weight: 131 lb 2 oz BMI 23.2 BP 100/67 Respiration 16 Pulse 76 Pulse Oximetry (%) 93 Oxygen Delivery Method room air Intake Visit Reasons: LAP LUISA DOS 12/02 Chief Complaint: lap luisa DOS 12/02 Is patient in pain?: Yes Allergies No Known Allergies Allergy (Verified 12/16/24 08:35) Medications ???Medication ???Instructions ???Recorded ???Confirmed ???Type denosumab 60 mg/mL subcutaneous 60 mg subcut .Q6 MONTHS 04/17/20 0 12/16/24 History syringe liothyronine 5 mcg tablet (Cytomel) 5 mcg PO DAILY 04/21/23 5 History calcium 600 mg (as 1 tab PO BID 09/11/23 12/16/24 His tory carbonate)-vitamin D3 20 mcg (800 unit) tablet mecobalamin (vitamin B12) 1,000 1,000 mcg PO DAILY 09/11/23 History mcg chewable tablet diltiazem HCl 30 mg tablet 30 mg PO QDAY 10/04/23 12/16/24 Hi story sulindac 200 mg tablet 200 mg PO BID 08/26/24 12/16/24 Hi story cholecalciferol (vitamin D3) 25 125 mcg PO DAILY 10/08/24 12/16/24 History mcg (1,000 unit) capsule (Vitamin D3) magnesium 250 mg tablet 400 mg PO DAILY 10/08/24 12/16/24 History turmeric 400 mg capsule 500 mg PO DAILY 10/18/24 12/16/24 History omeprazole 40 mg capsule,delayed 40 mg PO BID 12/02/24 12/16/24 His tory release ondansetron HCl 4 mg tablet 4 mg PO Q6H PRN nausea and 5 12/16/24 Rx vomiting #8 tabs Have you fallen in the past year?: No Subjective Details: The patient is an 84-year-old female who is being seen today status post a recent laparoscopic cholecystectomy. She is doing well postoperatively except for some complaints of constipation. Her preoperative symptoms of pain have resolved however she is still having her nausea which really does not seem to have been affected by cholecystectomy. She states that she did finally take a stool softener yesterday. She states her bowel movements are mostly just occasional pellets a couple times per day but no sizable bowel movement recently Objective Details: She is alert and oriented x 3. She is in no acute distress. Abdomen is soft, nontender and nondistended. Incisions are clean dry and intact. She does have a bit of a hematoma at the gallbladder extraction port. I reassured her that this will resolve in the next few weeks Coding Level of Care Code Global Post Op Diagnoses S/P cholecystectomy Z90.49 [facility] Medical History (Updated 12/14/24 @ 22:36 by Savanna Gagnon NP-C) Gallbladder polyp Wears glasses Post-menopausal Cancer Thyroid disease Gastric reflux Non-smoker Shortness of breath on exertion Chronic cough Leg cramps Normal Holter exam History of echocardiogram History of stress test Cardiology follow-up encounter Chest pain RLS (restless legs syndrome) Osteoporosis Arthritis Hyperlipidemia Tachycardia Asthma Lung nodules Surgical History (Updated 12/16/24 @ 08:36 by Aysha Hitchcock LPN) S/P cholecystectomy History of esophagogastroduodenosco py (EGD) History of lobectomy of lung H/O vaginal surgery History of surgery on upper extremity Complete tear of sacrospinous ligament Cataract fragments of eye following cataract surgery History of genitourinary surgery S/P cervical spinal fusion Hx of repair of rotator cuff H/O hand surgery History of total right knee replacement (TKR) Family History Mother Rheumatoid arthritis Father Rheumatoid arthritis Other Malignant neoplasm determined by biopsy of testicle Social History Smoking Status: Never smoker alcohol intake: current alcohol intake frequency: a few times a week Alcohol type: wine substance use type: does not use Assessment and Plan (No Qualifiers) Assessment and Plan (1) S/P cholecystectomy: Status: Acute Plan The patient is an 84-year-old female status post a recent robotic cholecystectomy. Her right upper quadrant pain has resolved however her nausea persists. I recommend that she try some MiraLAX at least once or twice daily to help with bowel movements. I also encouraged her to drink plenty of fluids. I suggest that she continue to follow-up with GI for her nausea. Follow-up will be as needed from my standpoint 12/16/24 0851 Date Carlos Cano MD (more content not included)... Normal [facility] Visit Repor ton 12-12-2024 Gastroenterology Visit Report [facility] [address] [place] [address] OFFICE VISIT Date of Service: 12/12/24 MR#: [id number] Acct: [id number] Name: MARGIE FULTON Rep #: [id number] : 1940 Provider: ZACKARY duvall Age/Sex: 84/F Location: [facility] Status: Signed Intake Vital Signs 11/12/24 09:07 12/02/24 08:13 12/12/24 11:06 Height 5 ft 3 in 5 ft 5 in 5 ft 3 in Weight: 131 lb 2 oz BMI 23.2 BP 100/67 Respiration 16 Pulse 76 Pulse Oximetry (%) 93 Oxygen Delivery Method room air Intake Visit Reasons: 1 month f/u Chief Complaint: nausea and abdominal lump 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 Accompanied by: Self Is patient in pain?: No Allergies No Known Allergies Allergy (Verified 12/12/24 11:05) Medications ???Medication ???Instructions ???Recorded ???Confirmed ???Type denosumab 60 mg/mL subcutaneous 60 mg subcut .Q6 MONTHS 04/17/20 0 12/12/24 History syringe liothyronine 5 mcg tablet (Cytomel) 5 mcg PO DAILY 04/21/23 5 History calcium 600 mg (as 1 tab PO BID 09/11/23 12/12/24 His tory carbonate)-vitamin D3 20 mcg (800 unit) tablet mecobalamin (vitamin B12) 1,000 1,000 mcg PO DAILY 09/11/23 History mcg chewable tablet diltiazem HCl 30 mg tablet 30 mg PO QDAY 10/04/23 12/12/24 Hi story sulindac 200 mg tablet 200 mg PO BID 08/26/24 12/12/24 Hi story cholecalciferol (vitamin D3) 25 125 mcg PO DAILY 10/08/24 12/12/24 History mcg (1,000 unit) capsule (Vitamin D3) magnesium 250 mg tablet 400 mg PO DAILY 10/08/24 12/12/24 History turmeric 400 mg capsule 500 mg PO DAILY 10/18/24 12/12/24 History omeprazole 40 mg capsule,delayed 40 mg PO BID 12/02/24 12/12/24 His tory release ondansetron HCl 4 mg tablet 4 mg PO Q6H PRN nausea and 5 12/12/24 Rx vomiting #8 tabs Have you fallen in the past year?: Yes PFSH Medical History Gallbladder polyp Wears glasses Post-menopausal Cancer Thyroid disease Gastric reflux Non-smoker Shortness of breath on exertion Chronic cough Leg cramps Normal Holter exam History of echocardiogram History of stress test Cardiology follow-up encounter Chest pain RLS (restless legs syndrome) Osteoporosis Arthritis Hyperlipidemia Tachycardia Asthma Lung nodules Surgical History History of esophagogastroduodenosco py (EGD) History of lobectomy of lung H/O vaginal surgery History of surgery on upper extremity Complete tear of sacrospinous ligament Cataract fragments of eye following cataract surgery History of genitourinary surgery S/P cervical spinal fusion Hx of repair of rotator cuff H/O hand surgery History of total right knee replacement (TKR) Family History Mother Rheumatoid arthritis Father Rheumatoid arthritis Other Malignant neoplasm determined by biopsy of testicle Social History Smoking Status: Never smoker alcohol intake: current alcohol intake frequency: a few times a week Alcohol type: wine substance use type: does not use HPI HPI Chief Complaint: nausea and abdominal lump Details: MARGIE FULTON, is a 84 F who presents to the office today for 84-year-old female with epigastric pain, 12 pound unintentional weight loss over 6 months, and fatigue. Labs show mild elevation in AST (35), ALP (143), and GGT (85) with negative LESTER, LESTER and RF. Imaging reveals a distended gallbladder (on both ultrasound and MRI) and a sessile polyp >2cm on ultrasound, not clearly visualized on MRI or CT. CBD is mildly dilated at [address] (previously 4 mm on MRI), with no definite obstructing lesion. CEA elevated 10.2 (January 2024). 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 I have provided her a referral to Dr. Cano for concerning GB lesion. Note: [employer] speech recognition slater apprentice software was used to create portions of this document. Sound-alike and misspelled words, as well as other slater apprentice errors may be contained in the documentation. Patient Instructions: Continue PPI BID See ENT as scheduled Schedule consult with Dr. Cano 10d post op robotic cholecystectomy (12/02/24) - pathology pending - vomiting 3x this week - all episodes have been after mid morning snack with coffee or lunch - she is now avoiding coffee - she is eating small meals - nausea is improving over the last 24h but still present, limiting her PO intake - reports her bowels are moving well, formed, denies any diarrhea - denies any bleeding - denies any ABD pain - she is sche (more content not included)... Normal [facility] Discharge Instructionon 05- Discharge Instruction [facility] Medical Records Department [address] [place] [address] Instructions for Home/Discharge Instructions 12/02/24 1103 MR#: [id number] Acct: [id number] Name: MARGIE FULTON Rep #: [id number] : 1940 84 From: Carlos Cano MD PCP: Dr. Danielle Paige, DO Status:REG [facility] Discharge Instructions Diet Discharge Diet: Light diet - advance as tolerated Activity Discharge Activity: Return to Normal Activity and May Shower May shower in (days): 1 Ice area for (Minutes): 30 Lifting Restrictions: No lifting pushing or pulling more than 20 pounds for 3 to 4 weeks Dressing / Incision Call your doctor if your incision/area has: Continuous Slow Oozing, Sudden Increased Bleeding, Increased Pain/ Swelling, Increased Redness, Foul Smelling Discharge and Swelling at the incision site Call your doctor if you observe: Fever of 101 or Higher Cleanse incision/area with: Soap Water Follow Up Care Please Follow Up With: Carlos Cano MD When: 2 weeks. Please call office to schedule appointment Test Results: Test results from this visit will be discussed in further detail at your follow-up appointment, if applicable. Discharge Plan Admission Primary Reason for Your Visit: Robotic cholecystectomy Attending Provider: Carlos Cano Primary Care Provider: Danielle Paige Instructions Print Language: Tunisian Discharge Orders/Prescriptions Prescriptions: New oxycodone-acetaminophen [Percocet] 5-325 mg tablet 1 tab PO Q8H PRN (Reason: pain) 3 Days Qty: 7 0RF Continued mecobalamin (vitamin B12) 1,000 mcg tablet,chewable 1,000 mcg PO DAILY diltiazem HCl 30 mg tablet 30 mg PO QDAY sulindac 200 mg tablet 200 mg PO BID dicyclomine 10 mg capsule 10 mg PO BID PRN (Reason: abdominal pain) Qty: 30 0RF calcium carbonate-vitamin D3 600 mg-20 mcg (800 unit) tablet 1 tab PO BID denosumab 60 MG/ML syringe 60 mg subcut .Q6 MONTHS Rx Instructions: every 6 months liothyronine [Cytomel] 5 mcg tablet 5 mcg PO DAILY turmeric 400 mg capsule 500 mg PO DAILY cholecalciferol (vitamin D3) [Vitamin D3] 25 mcg (1,000 unit) capsule 125 mcg PO DAILY magnesium 250 mg tablet 400 mg PO DAILY omeprazole 40 mg capsule,delayed release(DR/EC) 40 mg PO BID Other Ambulatory Orders: 12 Lead EKG (Routine) Location: None Selected Ordered By: Dr. Alex Rudolph Referrals / Follow Up: Danielle Paige DO [Primary Care Provider] - Disposition Disposition (needs filled in before D/C Order can be placed): Home, Self Care 12/02/24 1106 Carlos Cano MD CC: Dr. Danielle Paige DO Signed Normal [facility] MR/POSTOP.KATERINE 12-02-2024 MR[facility]OP[facility] Medical Records Department [address] [place] [address] Anesthesia Postop Eval I 12/02/24 1102 MR#: [id number] Acct: [id number] Name: MARGIE FULTON Rep #: [id number] : 1940 84 From: Juliana Huff CRNA PCP: Dr. Danielle Paige DO Status:REG SDC Y Race: C Location: [place] [address] Anesthesia: Postop Eval I Current Vital Signs Temperature: 97.5 F Pulse Rate: 89 Blood Pressure: 110/63 Respiratory Rate: 20 Pulse Ox: 97 Oxygen Delivery Method: Room Air Assessment Airway patent: Yes Spontaneous unlabored respirations: Yes Mental status: Awake nausea: No Vomiting: No Anesthesia Complication: No Fluid Hydration Crystalloid volume administer (ml): 1,100 Total IV fluid infused: 1,100 Progress Note Anesthesia document: Postop Eval 1 completed: Yes 12/02/24 1103 Date Juliana Oakesoreest [employer] Cosigner Signature: Date CC: Signed Normal [facility] [id number] 12-02-2024 [facility] Medical Records Department [address] [place] [address] Anesthesia Postop Eval II 12/02/24 1147 MR#: [id number] Acct: [id number] Name: MARGIE FULTON Rep #: [id number] : 1940 84 From: Duc Muir MD PCP: Dr. Danielle Paige, DO Status:REG SDC Y Race: C Location: [place] [address] Anesthesia Postop Eval I Sum Postop Eval Completion status Anesthesia document: Postop Eval 1 completed: Yes Anesthesia Postop Eval I Summary Anesthesia Postop Eval I Summary: Anesthesia Postop Eval I: Assessment Summary Airway patent Yes 12/02/24 11:03 BIOLOGY FACULTY MEMBER.JDEF Spontaneous unlabored Yes 12/02/24 11:03 BIOLOGY FACULTY MEMBER.JDEF respirations Mental status Awake 12/02/24 11:03 BIOLOGY FACULTY MEMBER.JDEF nausea No 12/02/24 11:03 BIOLOGY FACULTY MEMBER.JDEF Vomiting No 12/02/24 11:03 BIOLOGY FACULTY MEMBER.JDEF Anesthesia Postop Eval I: Fluid Summary Crystalloid volume administer 1,100 12/02/24 11:03 BIOLOGY FACULTY MEMBER.JDEF (ml) Colloids volume administered ( ml) Blood Product volume administered (ml) Total IV fluid infused ,100 12/02/24 11:03 BIOLOGY FACULTY MEMBER.JDEF Anesthesia Postop Eval I: Summary Notes Anesthesia Complication No 12/02/24 11:03 BIOLOGY FACULTY MEMBER.JDEF Anesthesia Complication Comment: Post-operative progress note Anesthesia: Postop Eval II Evaluation Mental status: Awake Pain Level: 2 nausea: No Vomiting: No 12/02/24 1147 Date Duc Alvarez Signature: Date CC: Signed Normal [facility] Operative Reporton Operative Report [facility] Medical Records Department [address] [place] [address] Operative Report 12/02/24 1106 MR#: [id number] Acct: [id number] Name: MARGIE FULTON Rep #: [id number] : 1940 84 From: Carlos Cano MD PCP: Dr. Danielle Paige, DO Status:[facility] Location: [place] [address] Problems Associated Problem List Diagnoses (1) Abnormal US (ultrasound) of abdomen: Procedures Digestive 40xxx-49xxx: [id number] Laparo cholecystectomy/graph Operative Report (Standard) Operative Information Date of Procedure: 12/02/24 Pre-Operative Diagnosis: Biliary colic Post-Operative Diagnosis: Same Surgery/Procedure Performed: Robotic cholecystectomy with ICG cholangiogram plywood layup line back feeder: Yes Public Affairs Manager: Brandi Infante Tasks completed by construction administrative assistant: Closing and Other Additional embalmer assistant?: No Type of Anesthesia: General and Local RN Documented Start/Stop Times: Operation Date: 12/02/24 09:30 Case Time Into Pre-Op 12/02/24 08:02 Out of Pre-Op 12/02/24 09:33 Anesthesia Start 12/02/24 09:38 Into Room 12/02/24 09:38 Procedure Start 12/02/24 09:57 Procedure End 12/02/24 10:47 Anesthesia End 12/02/24 10:52 Out of Room 12/02/24 10:52 Into Recovery 12/02/24 10:55 Procedure Start Time: 09:57 Procedure Stop Time: 10:47 Select all DRAINS/GRAFTS/IMPLANTS that apply: None Special Medications: ICG preop Estimated Blood Loss: 10 mL Specimen collected: Yes Description of specimen(s) removed: Gallbladder Description of surgery: The patient is an 84-year-old female recently seen through the office with periodic right upper quadrant pain, bloating and nausea. She underwent an ultrasound that showed initially concern for a 2 cm polyp in the gallbladder. However, MRI did not indicate a polyp. Her symptoms seem consistent with biliary colic and so a robotic cholecystectomy was offered to her. We discussed the details of the plan procedure and she wished to proceed. The patient was brought to the operating today following informed consent. ICG was administered preoperatively. She was placed supine on the operative table with arms outstretched and arm boards. A general endotracheal anesthesia was induced. Once asleep her arms were comfortably tucked at her sides. Her abdomen was then prepped and draped in the usual sterile manner. An 8 mm incision was made just below the umbilicus for which a 5 mm trocar was placed optically. This was placed without incident. Once in place the abdomen is then fully insufflated with CO2 gas. A 5 mm 0 degree scope was inserted. There were no signs of bowel or vascular injury. Next an 8 mm trocar was placed on the right side of the abdomen as well as another trocar on the left side of the abdomen. Also a fourth trocar was placed in the left upper quadrant. All of these were placed without difficulty and under direct visualization. The original umbilical trocar was switched to an 8 mm trocar as well. The patient was then positioned with some head up and rolled to the left. The da Dorina robot was then rolled into position and was docked. Once all instruments were in place, the gallbladder was visualized and grasped and reflected in a cephalad direction. There was some adhesions to the undersurface of the gallbladder. These were taken down using electrocautery connected to L-hook. The peritoneum on either side of the gallbladder was then incised again using hook electrocautery. This improved mobility of the gallbladder. This was already quite mobile. It was quite distended and fluid- filled. It did not appear to be thickened. I could not appreciate any obvious stones or masses etc. The infundibulum was then dissected. Cystic duct and cystic artery were both identified. They were dissected out circumferentially. The lower third of the gallbladder if not more was dissected off of the liver. At this point there were 2 and only 2 structures going to the gallbladder thus establishing a critical view of safety. ICG was also utilized and confirmed that we had accurately identified the cystic duct. 2 clips were placed proximally on the cystic duct and 1 was placed distally. The artery was clipped in a similar manner. Both structures were then transected using electrocautery. After this the gallbladder was then bovied off the undersurface of the liver. Once freed was placed Endobag and brought out through the left sided trocar site. The fascia was then closed using 0 Maxon with the aid of the suture passer/fascial closure device. Hemostasis was excellent. There were no signs of bowel or vascular injury. The remaining trocars were opened up and insufflation was allowed to escape. Local anesthetic was injected into each of the incisions. The incisions were then closed with 4-0 Vicryl and skin glue. The patient was then awakened from anesthesia and taken to recovery in good condition. (more content not included)... Normal [facility] Surgery Specimen Level IIIon 12-02-2024 Surgery Specimen Level III Patient Age/Sex Location Account Attending Physician MARGIE FULTON 84/F [facility] [id number] Dr. Carlos Cano MD Specimen: [id number] Received: 12/02/24 Status: GRADY Kendall Num: [id number] Spec Type: ARELI Navas Dr: Dr. Carlos Cano MD HEADER OPERATION: Robotic cholecystectomy PRE-OP DIAGNOSIS: Gallbladder: abnormal imaging, abdominal pain TISSUE SUBMITTED: A- Gallbladder MICROSCOPIC DIAGNOSIS A. Gallbladder, cholecystectomy: * Mild chronic cholecystitis with cholelithiasis * One benign lymph node MICROSCOPIC DESCRIPTION Slides are reviewed. GROSS DESCRIPTION A. Received in formalin in a container labeled with the patient's name, date of , and gallbladder is an 8.2 x 3.8 x 1.0 cm predominantly intact cholecystectomy specimen. A clamped possible cystic duct margin is identified measuring 0.4 cm in length by 0.3 cm in diameter (inked black). Adjacent to the clamped duct is a 0.4 x 0.3 x 0.3 cm mayes-pink periductal lymph node candidate. The serosa is pale green-hallman, smooth, and glistening. The specimen is opened to reveal an abundance of thick green bile with multiple yellow, friable stones ranging from 0.2 to 0.3 cm in greatest dimension. The mucosa is red-mayes and tinged green with scattered denuded areas. There is an average wall thickness of 0.2 cm. Senior Javascript Engineer sections:A1. Cystic duct margin, en face with periductal lymph node candidate bisectedA2. Full-thickness sections [facility] 12-02-2024 CPT:69480 Patient Age/Sex Location Account Attending Physician MARGIE FULTON 84/F [facility] [id number] Dr. Carlos Cano MD Signed (signature on file) Dr. Rosa Hussein DO 12/16/24 1446 [facility] Comment on above: Performed By: #### P SUIII #### [facility] [address] [place], [address] Electrocardiogram reportOrde red By: Lisa Calles on 11-28-2024 EKG study [facility] Cardiovascular Services [address] [place] [address] 12 Lead EKG 11/26/24 1240 MR#: [id number] Acct: [id number] Name: MARGIE FULTON CHERRY TREE Rep # :[id number] : 1940 84 From: Lisa burgos MD Attending Dr: Dr. Carlos Cano MD Status: PRE [facility] Ordering Dr: Alex Rudolph MD Date: 11/26/24 Location: [facility] Sex: F C Admitted: Test Reason : PREOP Blood Pressure : */* mmHG Vent. Rate : 65 BPM Atrial Rate : 65 BPM P-R Int : 142 ms QRS Dur : 82 ms QT Int : 406 ms P-R-T Axes : 58 41 58 degrees QTcB Int : 422 ms Normal sinus rhythm Normal ECG Confirmed by Lisa Calles ([id number]), assignment editor FRANKLYN MOON ([id number]) on 11/28/2024 10:08:39 AM Referred By: Carlos Cano Confirmed By: Lisa Calles 11/28/24 1008 Date _ Lisa Calles MD CC: Dr. Alex Rudolph MD; Dr. Danielle Paige DO; Dr. Carlos Cano MD ~ Signed [facility] Other Phone: 12 Lead EKGon 11-26-2024 12 Lead EKG [facility] Cardiovascular Services [address] [place] [address] 12 Lead EKG 11/26/24 1240 MR#: [id number] Acct: [id number] Name: MARGIE FULTON NOHEMI Rep #: [id number] : 1940 84 From: Lisa Calles MD Attending Dr: Dr. Carlos Cano MD Status: MO E [facility] Ordering Dr: Alex Rudolph MD Date: 11/26/24 Location: [facility] Sex: F C Admitted: Test Reason : PREOP Blood Pressure : */* mmHG Vent. Rate : 65 BPM Atrial Rate : 65 BPM P-R Int : 142 ms QRS Dur : 82 ms QT Int : 406 ms P-R-T Axes : 58 41 58 degrees QTcB Int : 422 ms Normal sinus rhythm Normal ECG Confirmed by Lisa Calles ([id number]), assignment editor FRANKLYN MOON ([id number]) on 11/28/2024 10:08:39 AM Referred By: Carlos Cano Confirmed By: Lisa Calles 11/28/24 1008 Date Lisa Calles MD CC: Dr. Alex Rudolph MD; Dr. Danielle Paige DO; Dr. Carlos Cano MD Signed [facility] MR/PAT.[facility] 11-26-2024 MR/PAT.[facility] Medical Records Department [address] [place] [address] PAT - Anesthesia 11/26/24 1513 MR#: [id number] Acct: [id number] Name: MARGIE FULTON Rep #: [id number] : 1940 84 From: Syd Posada MD PCP: Dr. Danielle Paige DO Status:PRE [facility] Y Race: C Location: [facility] Pre-Assessment Diagnosis/Proposed Procedure Planned Operative Procedure(s): (N/A) Robotic Cholecystectomy Anesthesia History Anesthesia History - clinical services director: Anesthesia History - clinical services director Hx Hospitalization No 11/25/24 09:33 Any Problems With Anesthesia No 11/25/24 09:33 Cholinesterase deficiency No 11/25/24 09:33 You/Your Family Experience No 11/25/24 09:33 fever (hyperthermia) with Relationship Recent Exposure to Contagious No 10/10/24 06:17 Disease Does patient have nerve No 11/25/24 09:33 stimulator Patient instructed to have device shut off --Does patient have Pacemaker or ICD? When Was Last Pacemaker Check QUESTION #4 FULL TEXT: You/Your Family Experience fever (hyperthermia) with Anesthesia Last Oral Intake Last Oral intake: Last Oral Intake NPO since Meds taken in AM with sips of water? Meds patient instructed to take am of surgery PONV PONV - clinical services director: PONV - clinical services director Female Yes 11/25/24 09:33 HX of Motion Sickness No 11/25/24 09:33 HX of N/V After Surgery No 11/25/24 09:33 Non-Smoker Yes 11/25/24 09:33 Duration of Surgery greater Yes 11/25/24 09:33 than 60 minutes Number of Risk Factors 3 11/25/24 09:33 PONV Score Moderate Risk 11/25/24 09:33 Height Weight Height Weight: Anesthesia: Height Weight Height 5 ft 5 in 11/18/24 09:06 Respiratory Assessment Respiratory Assessment - clinical services director: Respiratory Tract Infection Hx - clinical services director Hx Respiratory Tract Infection Yes: Patient has a chronic 11/25/24 09:33 cough. Nothing acute. STOP Sleep Apnea STOP Sleep Apnea - clinical services director: STOP Sleep Apnea - clinical services director Hx Hypertension No 11/25/24 09:33 Hx Sleep Apnea No 11/25/24 09:33 CPAP No 11/25/24 09:33 BIPAP No 11/25/24 09:33 Do you snore loudly (louder No 11/25/24 09:33 than talking or can be heard Do you often feel tired/ No 11/25/24 09:33 fatigued/ sleepy during daytime? Has anyone observed you stop No 11/25/24 09:33 breathing during sleep? STOP Results Negative 11/25/24 09:33 QUESTION #5 FULL TEXT : Do you snore loudly (louder than talking or can be heard through closed doors)? Tobacco Use History Tobacco Use History - clinical services director: Tobacco Use History - clinical services director Tobacco Use Smoking Status Never smoker 11/25/24 09:33 Hx Tobacco Use No 11/25/24 09:33 Years Smoking Packs Smoked per Day Smoking Cessation Date was within the last 15 years Hx Smoking Cessation Date Hx Smoking Cessation Counseling Hematologic Medial History Hematologic Hx - clinical services director: Hematologic Medical Hx - community service representative Hx of Blood Transfusion Yes 11/25/24 09:33 Hx of Transfusion in last 3 No 11/25/24 09:33 Months Date of Last Transfusion (if within last 3 months) Ever experience any problems No 11/25/24 09:33 with transfusion(s)? Specify any problems Hx of Preganancy in last 3 N/A 11/25/24 09:33 Months Nurse Filling Out Transfusion NBUCHER 11/25/24 09:33 Questions: Date: 11/25/24 11/25/24 09:33 Time: 09:33 11/25/24 09:33 Patient unable to answer at this time (ie. confused, unrespo /Reproduction History /Reproductive History - clinical services director: /Reproductive Hx- clinical services director Hx Now No 11/25/24 09:33 Gestational Age (in weeks): EDC: Hx Hx Para Hx Section SAB No 11/25/24 09:33 Active Medications Active Medications: Current Medications Generic Name Dose Route Start Last Admin Trade Name Freq PRN Reason Stop Dose Admin Indocyanine Green 3.75 mg/ N/A 1.5 mls @ 999 mls/hr 12/02/24 08:45 IV 12/02/24 08:46 PREOP ONE [facility] Medical History Gallbladder polyp Wears glasses Post-menopausal Cancer Thyroid disease Gastric reflux Non-smoker Shortness of breath on exertion Chronic cough Leg cramps Normal Holter exam History of echocardiogram History of stress test Cardiology follow-up encounter Chest pain RLS (restless legs syndrome) Osteoporosis Arthritis Hyperlipidemia Tachycardia Asthma Lung nodules Home Medications ???Medication ???Instructions ???Recorded ???Last Taken ???Type denosumab 60 mg/mL subcutaneous 60 mg subcut .Q6 MONTHS 1 (more content not included)... Normal [facility] TSH DL <= 0.005 mIU/L QnOrde red By: Alex Rudolph on 11-26-2024 TSH Qn 1.860 uIU/mL 0.300-4.200 [facility] Thyroid Stim Hormone (TSH)on 11-26-2024 TSH 1.860 uIU/mL Normal 0.300-4.200 [facility] Comment on above: Performed By: #### L [id number] #### [facility] [address] [place], [address] Surgery Visit Reporton 11-18 Surgery Visit Report [facility] [address] [place] [address] OFFICE VISIT Date of Service: 11/18/24 MR#: [id number] Acct: [id number] Name: MARGIE FULTON Rep #: [id number] : 1940 Provider: Dr. Carlos cramer MD Age/Sex: 84/F Location: [facility] Status: Signed Intake Vital Signs 11/12/24 09:07 11/18/24 09:06 Height 5 ft 3 in 5 ft 5 in Weight: 134 lb 8 oz 135 lb 2 oz BMI 23.8 22.4 BP 103/67 110/70 Blood Pressure Location Rt brachial Position Sitting Respiration 16 17 Pulse 75 74 Pulse Source Monitor Temp 97.6 F L Temp Source Temporal Pulse Oximetry (%) 96 97 Oxygen Delivery Method room air room air Intake Visit Reasons: GALLBLADDER Chief Complaint: gallbladder Accompanied by: Daughter Is patient in pain?: Yes (RUQ ) Allergies No Known Allergies Allergy (Verified 11/18/24 09:07) Medications ???Medication ???Instructions ???Recorded ???Confirmed ???Type denosumab 60 mg/mL subcutaneous 60 mg subcut .Q6 MONTHS 04/17/20 0 11/18/24 History syringe liothyronine 5 mcg tablet (Cytomel) 5 mcg PO DAILY 04/21/23 5 History calcium 600 mg (as 1 tab PO BID 09/11/23 11/18/24 His tory carbonate)-vitamin D3 20 mcg (800 unit) tablet mecobalamin (vitamin B12) 1,000 1,000 mcg PO DAILY 09/11/23 History mcg chewable tablet diltiazem HCl 30 mg tablet 30 mg PO QDAY 10/04/23 11/18/24 Hi story sulindac 200 mg tablet 200 mg PO BID 08/26/24 11/18/24 Hi story cholecalciferol (vitamin D3) 25 125 mcg PO DAILY 10/08/24 11/18/24 History mcg (1,000 unit) capsule (Vitamin D3) magnesium 250 mg tablet 400 mg PO DAILY 10/08/24 11/18/24 History turmeric 400 mg capsule 500 mg PO DAILY 10/18/24 11/18/24 History dicyclomine 10 mg capsule 10 mg PO BID PRN abdominal pain 11/18/24 Rx #30 caps Have you fallen in the past year?: No PFSH Medical History (Updated 11/18/24 @ 09:06 by Aysha Hitchcock LPN) Gallbladder polyp Wears glasses Post-menopausal Cancer Thyroid disease Gastric reflux Non-smoker Shortness of breath on exertion Chronic cough Leg cramps Normal Holter exam History of echocardiogram History of stress test Cardiology follow-up encounter Chest pain RLS (restless legs syndrome) Osteoporosis Arthritis Hyperlipidemia Tachycardia Asthma Lung nodules Surgical History History of lobectomy of lung H/O vaginal surgery History of surgery on upper extremity Complete tear of sacrospinous ligament Cataract fragments of eye following cataract surgery History of genitourinary surgery S/P cervical spinal fusion Hx of repair of rotator cuff H/O hand surgery History of total right knee replacement (TKR) Family History Mother Rheumatoid arthritis Father Rheumatoid arthritis Other Malignant neoplasm determined by biopsy of testicle Social History Smoking Status: Never smoker alcohol intake: current alcohol intake frequency: a few times a week Alcohol type: wine substance use type: does not use HPI HPI HPI: The patient is an 84-year-old female who is being seen today for right upper quadrant pain and some abnormal imaging regarding her gallbladder. Patient states that she has been having some right upper quadrant pain for some time. She recently underwent an EGD which sounds as though this was unremarkable. She also underwent an ultrasound that showed a questionable 2 cm polyp or mass within the gallbladder. This was followed up with an MRI which did not reveal any obvious mass or polyp. Nevertheless she continues to have some periodic right upper quadrant pain. She does state that this sometimes is worse with eating and does radiate around to the back and right shoulder. She presents today for further evaluation and treatment recommendations ROS General General: Yes weight change and fatigue; No appetite, colon cancer, breast cancer or weakness HEENT HEENT: No difficulty swallowing, eye injury, eye surgery, swollen glands or hoarseness Endo Endocrine: Yes thyroid disease; No diabetes mellitus, thyroid cancer, Hair loss, heat intolerance or cold intolerance Skin Skin: No rash or changing moles Musc Musculoskeletal: Yes arthritis; No back problems, rheumatoid arthritis, gout or joint pain Cardio Cardiovascular: No murmur, pacemaker, heart disease, atrial fibrillation, high blood pressure, heart attack, heart stent, palpitations, shortness of breath with exertion or chest pain Psych Psychiatric: No depression, anxiety or hearing voices Resp Respiratory: No shortness of breath, No sl (more content not included)... Normal [facility] Visit Repor ton 11-12-2024 Gastroenterology Visit Report [facility] [address] [place] [address] OFFICE VISIT Date of Service: 11/12/24 MR#: [id number] Acct: [id number] Name: MARGIE FULTON Rep #: [id number] : 1940 Provider: ZACKARY duvall Age/Sex: 84/F Location: [facility] Status: Signed Intake Vital Signs 08/27/24 13:22 09/05/24 08:02 10/18/24 10:26 11/12/24 09:07 Height 5 ft 5 in 5 ft 5 in 5 ft 3 in 5 ft 3 in Weight: 134 lb 8 oz BMI 23.8 BP 103/67 Respiration 16 Pulse 75 Pulse Oximetry (%) 96 Oxygen Delivery Method room air Intake Visit Reasons: Test Result Chief Complaint: follow-up 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 Accompanied by: Daughter Is patient in pain?: No Allergies No Known Allergies Allergy (Verified 11/12/24 09:03) Medications ???Medication ???Instructions ???Recorded ???Confirmed ???Type denosumab 60 mg/mL subcutaneous 60 mg subcut .Q6 MONTHS 04/17/20 0 11/12/24 History syringe liothyronine 5 mcg tablet (Cytomel) 5 mcg PO DAILY 04/21/23 5 History calcium 600 mg (as 1 tab PO BID 09/11/23 11/12/24 His tory carbonate)-vitamin D3 20 mcg (800 unit) tablet mecobalamin (vitamin B12) 1,000 1,000 mcg PO DAILY 09/11/23 History mcg chewable tablet diltiazem HCl 30 mg tablet 30 mg PO QDAY 10/04/23 11/12/24 Hi story sulindac 200 mg tablet 200 mg PO BID 08/26/24 11/12/24 Hi story cholecalciferol (vitamin D3) 25 125 mcg PO DAILY 10/08/24 11/12/24 History mcg (1,000 unit) capsule (Vitamin D3) magnesium 250 mg tablet 400 mg PO DAILY 10/08/24 11/12/24 History turmeric 400 mg capsule 500 mg PO DAILY 10/18/24 11/12/24 History dicyclomine 10 mg capsule 10 mg PO BID PRN abdominal pain 11/12/24 Rx #30 caps Have you fallen in the past year?: No Nurse's Note: Is taking her PPI BID as recommended but hasn't noticed much difference yet. [facility] Medical History Wears glasses Post-menopausal Cancer Thyroid disease Gastric reflux Non-smoker Shortness of breath on exertion Chronic cough Leg cramps Normal Holter exam History of echocardiogram History of stress test Cardiology follow-up encounter Chest pain RLS (restless legs syndrome) Osteoporosis Arthritis Hyperlipidemia Tachycardia Asthma Lung nodules Surgical History History of lobectomy of lung H/O vaginal surgery History of surgery on upper extremity Complete tear of sacrospinous ligament Cataract fragments of eye following cataract surgery History of genitourinary surgery S/P cervical spinal fusion Hx of repair of rotator cuff H/O hand surgery History of total right knee replacement (TKR) Family History Mother Rheumatoid arthritis Father Rheumatoid arthritis Other Malignant neoplasm determined by biopsy of testicle Social History Smoking Status: Never smoker alcohol intake: current alcohol intake frequency: a few times a week Alcohol type: wine substance use type: does not use HPI HPI Chief Complaint: follow-up Details: MARGIE FULTON, is a 84 F who presents to the office today for EGD 10/10/2024 - Abnormal esophageal motility, suspicious for presbyesophagus. Biopsied. Dilated. - Small hiatal hernia. - No gross lesions in the first portion of the duodenum. OV 10/21/2024 84-year-old female presents for follow-up. She was initially seen in the office on 08/28/2024 with complaints of coughing with swallowing, dysphagia, loss of appetite and weight loss. Labs had revealed AST 38, ALP 177, CRP 9.19. In terms of coughing with swallowing she underwent a cookie swallow which did not reveal aspiration. The MBS did reveal retention of pudding and cookie in the mid to lower esophagus with retrograde flow to the upper esophagus. Esophagram performed 09/27/2024 revealed hold-up of barium tablet at the [facility]. She underwent EGD 10/10/2024 which revealed abnormal esophageal motility suspicious for presbyesophagus. Esophageal biopsies were unremarkable. She reports resolution of dysphagia post esophageal dilation. She also reports an improvement in cough and remains on omeprazole 40 mg once daily. She recently saw her dentist for complaints of dry mouth and she reports concern for possible Sjogren's. She denies any other autoimmune conditions. She does experience intermittent epigastric abdominal pain, loss of appetite, hoarseness and a weight loss of 1 pound in the past 6 weeks; with a total weight loss of 12 pounds in the past several months. She reports previously seeing an ENT approximately 4 years ago for evaluation of hoarseness. I trnih (more content not included)... Normal [facility] Abdomen/Pelvis WITH Contrast on 11-11-2024 Abdomen/Pelvis WITH Contrast [facility] Imaging Services [address] [place] [address] Abdomen/Pelvis WITH Contrast MR#: [id number] Acct: [id number] Name: MARGIE FULTON Rep #: [id number] : 1940 F 84 From: Emmanuel Miramontes MD PCP: Dr. Danielle Paige, DO Status: REG CLI Study: Abdomen/Pelvis WITH Contrast Date of Exam: Exam# [id number] Ordering Dr: Savanna Gagnon COSMETICS DEMONSTRATOR- C PROCEDURE: ABDOMEN/PELVIS WITH CONTRAST 11/11/2024 REASON FOR EXAM: ABDOMINAL FULNESS, PAIN, WEIGHT LOSS, ABNL US TECHNIQUE: Abdomen and pelvis CT with intravenous contrast. Coronal and Sagittal reconstruction series were provided. PATIENT PREPARATION: Per protocol ORAL CONTRAST TYPE: Readi-Cat AMOUNT: Information not provided CONTRAST: Isovue 300 VOLUME: 98 mL One or more dose reduction techniques were used (e.g., Automated exposure control, adjustment of the mA and/or kV according to patient size, use of iterative reconstruction technique. RADIATION DOSE SUMMARY: CTDlvol: 16.62+ 8.52 mGy DLP: 438.42 mGycm COMPARISON: 10/15/2024 FINDINGS: Lung bases: Atelectasis/scarring. Coronary atherosclerosis and/or stents. Liver: Unremarkable. Spleen: Unremarkable. Gallbladder: Known gallbladder polyp not well seen. Top-normal caliber of the CBD for age at 7 mm. Pancreas: Unremarkable. Adrenals: Unremarkable. Kidneys: LEFT renal cyst and additional tiny hypodensities bilaterally, too small to characterize, likely cysts. Fullness of the extrarenal pelvis on the RIGHT without namrata caliectasis/hydronephros is. Bowel: Diverticulosis. Gastric wall thickness not well evaluated due to underdistention. Normal caliber appendix. Lymph nodes: Unremarkable. Vasculature: Mild/moderate atherosclerosis.. Peritoneum: Unremarkable. Bladder: Underdistended and suboptimally evaluated, grossly unremarkable. Reproductive Organs: Unremarkable. Body Wall: Small fat containing umbilical hernia. Small LEFT and tiny RIGHT fat containing inguinal hernias. LEFT sacral nerve stimulator.. Bones: Mild spondylosis. Mild lumbar levoscoliosis. Degenerative changes of the DEHHN-rkitasx-olbp-LEFT hips. CT/Abdomen/Pelvis WITH Contrast IMPRESSION: 1. No acute findings. 2. Additional description as above. Reading Location: [id number] CC: ZACKARY Gagnon; Dr. Danielle Paige DO Doula: Signed Normal [facility] LESTER w/ Reflex Mult Confirmon 10-21-2024 LESTER,DIRECT Negative Normal Negative [facility] Comment on above: Result Comment: Perf ormed at: [facility] [place] [id number] Contact Center Consultant: Donny Armendariz PhD, Phone: [phone] Performed By: #### L 501.6710, L505.7010, L800.1280, L3300.1200, L500.3400, L3100.5450 ####[facility] [address] [place], [place], [id number] ANCAon 10-21-2024 Atypical pANCA <1:20 Normal Neg:<1:20 [facility] Comment on above: Result Comment: The atypical pANCA pattern has been observed in a significant percentage of patients with ulcerative colitis, primary sclerosing cholangitis and autoimmune hepatitis. Performed at: [facility] [address] [place] [id number] Contact Center Consultant: Donny Armendariz PhD, Phone: [phone] Performed By: #### L 501.6710, L505.7010, L800.1280, L3300.1200, L500.3400, L3100.5450 ####[facility] [address] [place], [place], [phone] Cytoplasmic Ab <1:20 Normal Neg:<1:20 [facility] Comment on above: Performed By: #### L 501.6710, L505.7010, L800.1280, L3300.1200, L500.3400, L3100.5450 ####[facility] [address] [place], [place], [phone] Perinuclear Ab. <1:20 Normal Neg:<1:20 [facility] Comment on above: Result Comment: The presence of positive fluorescence exhibiting P-ANCA or C-ANCA patterns alone is not specific for the diagnosis of [place]'s Granulomatosis (WG) or microscopic polyangiitis. Decisions about treatment should not be based solely on ANCA IFA results. The International ANCA Group Consensus recommends follow up testing of positive sera with both MO- 3 and MPO-ANCA enzyme immunoassays. As many as 5% serum samples are positive only by EIA. Ref. AM J Clin Pathol 1999;111:507-513. Performed By: #### L 501.6710, L505.7010, L800.1280, L3300.1200, L500.3400, L3100.5450 ####[facility] [address] [place], [place], [phone] Anti-Mitochondrial ABon 04-0 ANTIMITOCHON AB <20.0 Normal 0.0-20.0 [facility] Comment on above: Result Comment: Nega tive 0.0 - 20.0 Equivocal 20.1 - 24.9 Positive >24.9 Mitochondrial (M2) Antibodies are found in 90-96% of patients with primary biliary cirrhosis. Performed By: #### L 501.6710, L505.7010, L800.1280, L3300.1200, L500.3400, L3100.5450 ####[facility] [address] [place], [place], [phone] LESTER serumOrdered By: Rosangela Gagnon on 10-17-2024 Anti-Nuclear Antibody Screen Negative Negative [facility] Comment on above: Performed at: [facility] [address] [id number] Director: Donny Armendariz PhD, Phone: [phone] Atypical perinuclear antineu trophil cytoplasmic antibodies measurementOrdered By: Savanna Gagnon on 10-17-2024 Atypical p-ANCA <1:20 titer Neg:<1:20 [facility] Comment on above: The atypical pANCA p attern has been observed in asignificant percentage of patients with ulcerative colitis,primary sclerosing cholangitis and autoimmune hepatitis.Performed at: [facility] [address] [id number] Director: Donny Armendariz PhD, Phone: [phone] Bilirubin directOrdered By: Savanna Gagnon on 10-17-2024 Bilirubin.direct [Mass/Vol] 0.25 mg/dL 0.00-0.30 [facility] Bilirubin, totalOrdered By: Savanna Gagnon on 10-17-2024 Bilirubin [Mass/Vol] 0.43 mg/dL 0.00-1.30 [facility] CRPon 10-17-2024 C-REACTIVE PROT 7.50 mg/L High 0.0-3.0 [facility] Comment on above: Performed By: #### L 501.6710, L505.7010, L800.1280, L3300.1200, L500.3400, L3100.5450 ####[facility] [address] [place], [address] CRP [Mass/Vol]Ordered By: Raf Gagnon on 10-17-2024 C-Reactive Protein Extended Range 7.50 mg/L High 0.0-3.0 [facility] Centromere B antibody assayO rdered By: Savanna Gagnon on 10-17-2024 Centromere B Antibody [facility] Comment on above: Test not performed Chromatin antibody assayOrde red By: Savanna Gagnon on 10-17-2024 Antichromatin Antibodies [facility] Comment on above: Test not performed DNA double strand Ab Qn (S)O rdered By: Savanna Gagnon on 10-17-2024 Anti-Double Strand DNA Antibody [facility] Comment on above: Test not performed Gastroenterology Visit Repor ton 10-17-2024 Gastroenterology Visit Report [facility] [address] 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 Accompanied by: Daughter Is patient in pain?: Yes Allergies No Known Allergies Allergy (Verified 10/18/24 10:23) Medications ???Medication ???Instructions ???Recorded ???Confirmed ???Type denosumab 60 mg/mL subcutaneous 60 mg subcut .Q6 MONTHS 04/17/20 0 10/18/24 History syringe omeprazole 40 mg capsule,delayed 40 mg PO DAILY 04/17/20 10/18/24 H istory release liothyronine 5 mcg tablet (Cytomel) 5 mcg PO DAILY 04/21/23 5 History calcium 600 mg (as 1 tab PO BID 09/11/23 10/18/24 His tory carbonate)-vitamin D3 20 mcg (800 unit) tablet mecobalamin (vitamin B12) 1,000 1,000 mcg PO DAILY 09/11/23 History mcg chewable tablet diltiazem HCl 30 mg tablet 30 mg PO QDAY 10/04/23 10/18/24 Hi story sulindac 200 mg tablet 200 mg PO BID 08/26/24 10/18/24 Hi story cholecalciferol (vitamin D3) 25 125 mcg PO DAILY 10/08/24 10/18/24 History mcg (1,000 unit) capsule (Vitamin D3) magnesium 250 mg tablet 400 mg PO DAILY 10/08/24 10/18/24 History turmeric 400 mg capsule 500 mg PO DAILY 10/18/24 10/18/24 History Have you fallen in the past year?: No Nurse's Note: Continues to have abdominal discomfort all in the front. Sometimes it's upper and sometime's it's lower. Nausea after eating only. [facility] Medical History Wears glasses Post-menopausal Cancer Thyroid disease Gastric reflux Non-smoker Shortness of breath on exertion Chronic cough Leg cramps Normal Holter exam History of echocardiogram History of stress test Cardiology follow-up encounter Chest pain RLS (restless legs syndrome) Osteoporosis Arthritis Hyperlipidemia Tachycardia Asthma Lung nodules Surgical History History of lobectomy of lung H/O vaginal surgery History of surgery on upper extremity Complete tear of sacrospinous ligament Cataract fragments of eye following cataract surgery History of genitourinary surgery S/P cervical spinal fusion Hx of repair of rotator cuff H/O hand surgery History of total right knee replacement (TKR) Family History Mother Rheumatoid arthritis Father Rheumatoid arthritis Other Malignant neoplasm determined by biopsy of testicle Social History Smoking Status: Never smoker alcohol intake: current alcohol intake frequency: a few times a week Alcohol type: wine substance use type: does not use HPI HPI Chief Complaint: follow-up Details: MARGIE FULTON, is a 84 F who presents to the office today for OV 08/28/2024 84y/o female presents for consultation with complaints of hoarseness, cough and GERD. PMH of tachycardiac, COPD, lung nodule s/p right upper lobe ectomy, HLD. Cardiac w/u for SOB December 2023 with normal stress test and EF 60%. UGI symptoms are postprandial but does endorse coughing with swallowing. Denies any N/V. She is taking Omeprazole 40mg daily x2 years and reports no improvement in cough. She does experience intermittent upper esophageal dysphagia with solids. She reports a decrease in appetite and weight loss of 10lbs over the past six months. Labs completed 08/07/2024 reveal AST 38, ALP 177, CRP 9.19. I have scheduled her for MBS/Esophagram and EGD. She will repeat labs in 1 month. Patient Instructions: Labs 1 month EGD MBS and Esophagram Continue daily PPI MBS 09/25/2024 The esophageal phase is primarily marked by... -Retention of pudding in the middle esophagus, with little to no improvement w/ thin liquid wash. -Retention of cookie in the middle and lower esophagus w/ retrograde flow to the upper esophagus, which somewhat improved w/ liquid washes. Sequential sips provided 2X to clear retention to lower esophagus, continued retrograde flow to middle esophagus. Esophagram 09/27/2024 The ingested a 12 mm tablet the barium is trapped at the gastroesophageal junction. No evidence of gastroesophageal reflux. US 10/08/2024 1. Soft tissue mass within the gallbladder fundus, which may represent gallbladder neoplasm or (more content not included)... Normal [facility] Sonali-1 antibody assayOrdered B y: Savanna Gagnon on 10-17-2024 SONALI-1 Antibody TNP [facility] Comment on above: Test not performed Laboratory - Chemistry and C hemistry - challengeOrdered By: Savanna Gagnon on 10-17-2024 AST [Catalytic activity/Vol] 35 U/L High <32 [facility] Liver Profileon 10-17-2024 Albumin [Mass/Vol] 4.0 g/dL Normal 3.4-4.[address] [facility] Comment on above: Performed By: #### L 501.6710, L505.7010, L800.1280, L3300.1200, L500.3400, L3100.5450 ####[facility] [address] [place], [address] ALK PHOS 143 U/L High 35-104 [facility] Comment on above: Performed By: #### L 501.6710, L505.7010, L800.1280, L3300.1200, L500.3400, L3100.5450 ####[facility] [address] [place], [address] ALT [Catalytic activity/Vol] 31 U/L Normal <=34 [facility] Comment on above: Performed By: #### L 501.6710, L505.7010, L800.1280, L3300.1200, L500.3400, L3100.5450 ####[facility] [address] [place], [address] AST [Catalytic activity/Vol] 35 U/L High <=31 [facility] Comment on above: Performed By: #### L 501.6710, L505.7010, L800.1280, L3300.1200, L500.3400, L3100.5450 ####[facility] [address] [place], [address] Bilirubin [Mass/Vol] 0.43 mg/dL Normal 0.00-1.30 [facility] Comment on above: Performed By: #### L 501.6710, L505.7010, L800.1280, L3300.1200, L500.3400, L3100.5450 ####[facility] [address] [place], [place], [phone] Bilirubin.direct [Mass/Vol] 0.25 mg/dL Normal 0.00-0.30 [facility] Comment on above: Performed By: #### L 501.6710, L505.7010, L800.1280, L3300.1200, L500.3400, L3100.5450 ####[facility] [address] [place], [address] Globulin (S) [Mass/Vol] 2.7 g/dL Normal 2.2-4.2 [facility] Comment on above: Performed By: #### L 501.6710, L505.7010, L800.1280, L3300.1200, L500.3400, L3100.5450 ####[facility] [address] [place], [place], [phone] T PROT 6.7 g/dL Normal 5.9-8.4 [facility] Comment on above: Performed By: #### L 501.6710, L505.7010, L800.1280, L3300.1200, L500.3400, L3100.5450 ####[facility] [address] [place], [place], [phone] Mitochondria Ab Ql (S)Ordere d By: Savanna Gagnon on 10-17-2024 Anti-Mitochondrial Antibody <20.0 Units 0.0-20.0 [facility] Comment on above: Negative 0.0 - 20.0 Equivocal 20.1 - 24.9 Positive >24.9Mitochondrial (M2) Antibodies are found in 90-96% ofpatients with primary biliary cirrhosis. Neutrophil cytoplasmic Ab.cl assic Qn (S)Ordered By: Savanna Gagnon on 10-17-2024 Cytoplasmic ANCA (c-ANCA) Antibody <1:20 titer Neg:<1:20 [facility] Neutrophil cytoplasmic Ab.pe rinuclear IF (S) [Titer]Ordered By: Savanna Gagnon on 10-17-2024 Perinuclear ANCA (p-ANCA) Antibody <1:20 titer Neg:<1:20 [facility] Comment on above: The presence of posi tive fluorescence exhibiting P-ANCA orC-ANCA patterns alone is not specific for the diagnosis ofWegener's Granulomatosis (WG) or microscopic polyangiitis.Decisions about treatment should not be based solely onANCA IFA results. The International ANCA Group Consensusrecommends follow up testing of positive sera with both MO-3 and MPO-ANCA enzyme immunoassays. As many as 5% serumsamples are positive only by EIA. Ref. AM J Clin Sjcfhy6238;111:507-513. FLOATLIGHT POWDER MIXER abOrdered By: Savanna duvall on 10-17-2024 FLOATLIGHT POWDER MIXER Antibody [facility] Comment on above: Test not performed Rheumatoid Factoron 10-18-19 25 RHEUMATOID FAC < 10.0 Normal <15 [facility] Comment on above: Performed By: #### L 501.6710, L505.7010, L800.1280, L3300.1200, L500.3400, L3100.5450 ####[facility] [address] [place], [address] Rheumatoid factor Ql (S)Orde red By: Savanna Gagnon on 10-17-2024 Rheumatoid Factor < 10.0 IU/mL <15 [facility] SCL-70 extractable nuclear A b Qn (S)Ordered By: Savanna Gagnon on 10-17-2024 Scl-70 (Scleroderma) Antibody [facility] Comment on above: Test not performed SS-A IgG antibody assayOrder ed By: Savanna Gagnon on 10-17-2024 SS-A/Ro IgG Antibody [facility] Comment on above: Test not performed SS-B IgG antibody assayOrder ed By: Savanna Gagnon on 10-17-2024 SS-B/La IgG Antibody [facility] Comment on above: Test not performed Serum DNA double strand anti body assay (units/volume)Ordered By: Savanna Gagnon on 10-17-2024 DNA double strand Ab Qn (S) [facility] Comment on above: Test not performed Serum Scl-70 antibody assay (units/volume)Ordered By: Savanna Gagnon on 10-17-2024 SCL-70 extractable nuclear Ab Qn (S) [facility] Comment on above: Test not performed Serum classic neutrophil cyt oplasmic antibody assay (units/volume)Ordered By: Savanna Gagnon on 10-17-2024 Neutrophil cytoplasmic Ab.classic Qn (S) <1:20 titer Neg:<1:20 [facility] Serum globulin measurementOr dered By: Savanna Gagnon on 10-17-2024 Globulin (S) [Mass/Vol] 2.7 g/dL 2.2-4.2 [facility] Serum mitochondria antibody detectionOrdered By: Savanna Gagnon on 10-17-2024 Mitochondria Ab Ql (S) <20.0 Units 0.0-20.0 [facility] Comment on above: Negative 0.0 - 20.0 Equivocal 20.1 - 24.9 Positive >24.9Mitochondrial (M2) Antibodies are found in 90-96% ofpatients with primary biliary cirrhosis. Serum or plasma C reactive p rotein measurement (mass/volume)Ordered By: Savanna Gagnon on 10-17-2024 CRP [Mass/Vol] 7.50 mg/L High 0.0-3.0 [facility] Serum or plasma alanine vasquez otransferase (ALT) measurementOrdered By: Savanna Gagnon on 10-17-2024 ALT [Catalytic activity/Vol] 31 U/L <35 [facility] Serum or plasma albumin valeri urement (mass/volume)Ordered By: Savanna Gagnon on 10-17-2024 Albumin [Mass/Vol] 4.0 g/dL 3.4-4.[address] [facility] Serum or plasma alkaline darrell sphatase measurementOrdered By: Savanna Gagnon on 10-17-2024 ALP [Catalytic activity/Vol] 143 U/L High 35-104 [facility] Serum perinuclear neutrophil cytoplasmic antibody titer by immunofluorescenceOrdered By: Savanna Gagnon on 10-17-2024 Neutrophil cytoplasmic Ab.perinuclear IF (S) [Titer] <1:20 titer Neg:<1:20 [facility] Comment on above: The presence of posi tive fluorescence exhibiting P-ANCA orC-ANCA patterns alone is not specific for the diagnosis ofWegener's Granulomatosis (WG) or microscopic polyangiitis.Decisions about treatment should not be based solely onANCA IFA results. The International ANCA Group Consensusrecommends follow up testing of positive sera with both MO-3 and MPO-ANCA enzyme immunoassays. As many as 5% serumsamples are positive only by EIA. Ref. AM J Clin Mzymyl6168;111:507-513. Serum rheumatoid factor dete ctionOrdered By: Savanna Gagnon on 10-17-2024 Rheumatoid factor Ql (S) < 10.0 IU/mL <15 [facility] Garcia antibody assayOrdered By: Savanna Gagnon on 10-17-2024 SM Antibody TNP [facility] Comment on above: Test not performed Total proteinOrdered By: Zayra Gagnon on 10-17-2024 Protein [Mass/Vol] 6.7 g/dL 5.9-8.[address] [facility] MRI Abd WITH and W/O Contras ton 10-15-2024 MRI Abd WITH and W/O Contrast [facility] Imaging Services [address] [place] [id number] MRI Abd WITH and W/O Contrast MR#: [id number] Acct: [id number] Name: MARGIE FULTON Rep #: [id number] : 1940 F 84 From: Abbe Donald DO PCP: Dr. 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 CONTRAST: Clariscan VOLUME: 12mL IV FINDINGS: The liver, pancreas, spleen, adrenals and kidneys are essentially unremarkable. There are 2 subcentimeter cysts identified in the right and left kidney. The gallbladder is distended. No gallstones are appreciated. No mass identified within the gallbladder fossa. A review of the ultrasound suggests there may be a sessile polyp gallbladder measuring over 2 cm. Peritoneal cavity and retroperitoneum are unremarkable. No free air or free fluid. No lymphadenopathy. Major vessels. No aggressive bone lesions. MRI/MRI Abd WITH and W/O Contrast IMPRESSION: The gallbladder polyp seen on the abdominal CT is not appreciated on MRI. May wish to consider a surgical consult Reading [facility] CC: ZACKARY Gagnon; Dr. Danielle Paige DO Doula: Signed Normal [facility] Magnetic resonance imaging r eportOrdered By: Abbe Donald on 10-15-2024 Study report [facility] Imaging Services [address] [place] [address] MRI Abd WITH and W/O Contrast MR#: [id number] Acct: [id number] Name: MARGIE FULTON Rep #: [id number] : 1940 F 84 From: Pet er Natalia CARUSO PCP: Dr. Danielle Paige DO Status: REG CLI Study:MRI Abd WITH and W/O Contrast Date of E xam: 10/15/24 Exam# [id number] Ordering Dr: Savanna Gagnon PROCEDURE: MRI ABD WITH AND W/O CONTRAST 10/15/2024 REASON FOR EXAM: ABNORMAL ABD US TECHNIQUE: Multiplanar, multisequence MRI of the upper abdomen without and with intravenousgadolinium-ba sed contrast. CONTRAST: Clariscan VOLUME: 12mL IV FINDINGS: The liver, pancreas, spleen, adrenals and kidneys are essentially unremarkable. There are 2 subcentimeter cysts identified in the right and left kidney. The gallbladder is distended. No gallstones are appreciated. No mass identified within the gallbladder fossa. A review of the ultrasound suggests there may be a sessile polyp gallbladder measuring over 2 cm. Peritoneal cavity and retroperitoneum are unremarkable. No free air or free fluid. No lymphadenopathy. Major vessels. No aggressive bone lesions. MRI/MRI Abd WITH and W/O Contrast IMPRESSION: The gallbladder polyp seen on the abdominal CT is not appreciated on MRI. May wish to consider a surgical consult Reading Location[facility] CC: ZACKARY Gagnon; Dr. Danielle Paige DO ~ Doula: Signed [facility] EGD Reporton 10-10-2024 EGD Report [facility] Medical Records Department [address] [place] [address] EGD Report MR#: [id number] Acct: [id number] Name: MARGIE FULTON Rep #: [id number] : 1940 84 From: Aron Frank DO PCP: Dr. Danielle Paige DO Status:REG [facility] Patient Name: Margie Fulton Procedure Date: 10/10/2024 7:11 AM Date of : 1940 Age: 84 Procedure: Upper GI endoscopy Indications: Dysphagia, Suspected esophageal reflux Providers: Aron Frank DO Referring MD: Daneille Paige Medicines: Monitored Anesthesia Care Patient Profile: This is an 84 year old female. Refer to note in patient chart for documentation of history and physical. Patient has symptoms of chronic cough, chronic dysphagia and dysphagia with both liquids and solids. Complications: No immediate complications. Procedure: Pre-Anesthesia Assessment: - Prior to the procedure, a History and Physical was performed, and patient medications and allergies were reviewed. The patient is competent. The risks and benefits of the procedure and the sedation options and risks were discussed with the patient. All questions were answered and informed consent was obtained. Patient identification and proposed procedure were verified by the physician in the pre-procedure area. Mental Status Examination: alert and oriented. Airway Examination: normal oropharyngeal airway and neck mobility. Respiratory Examination: clear to auscultation. CV Examination: normal. Prophylactic Antibiotics: The patient does not require prophylactic antibiotics. Prior Anticoagulants: The patient has taken no anticoagulant or antiplatelet agents except for aspirin. ASA Grade Assessment: II - A patient with mild systemic disease. After reviewing the risks and benefits, the patient was deemed in satisfactory condition to undergo the procedure. The anesthesia plan was to use monitored anesthesia care (MAC). Immediately prior to administration of medications, the patient was re-assessed for adequacy to receive sedatives. The heart rate, respiratory rate, oxygen saturations, blood pressure, adequacy of pulmonary ventilation, and response to care were monitored throughout the procedure. The physical status of the patient was re-assessed after the procedure. After obtaining informed consent, the endoscope was passed under direct vision. Throughout the procedure, the patient's blood pressure, pulse, and oxygen saturations were monitored continuously. The Endoscope was introduced through the mouth, and advanced to the second part of duodenum. The upper GI endoscopy was accomplished without difficulty. The patient tolerated the procedure well. Scope In: 7:20:13 AM Scope Out: 7:24:17 AM Total Procedure Duration Time 0 hours 4 minutes 4 seconds Findings: Abnormal motility was noted at the cricopharyngeus. The cricopharyngeus was abnormal. There is a decrease in motility of the esophageal body. The distal esophagus/lower esophageal sphincter is spastic, but gives up passage to the endoscope. Primary peristaltic waves are noted. Biopsies were taken with a cold forceps for histology. Verification of patient identification for the specimen was done. A guidewire was placed and the scope was withdrawn. Dilation was performed with a Savary dilator with no resistance at 54 Fr. The dilation site was examined and showed mild improvement in luminal narrowing. Estimated blood loss was minimal. A small hiatal hernia was present. No other significant abnormalities were identified in a careful examination of the stomach. No gross lesions were noted in the first portion of the duodenum. Impression: - Abnormal esophageal motility, suspicious for presbyesophagus. Biopsied. Dilated. - Small hiatal hernia. - No gross lesions in the first portion of the duodenum. Recommendation: - Discharge patient to home. - Resume previous diet. - Continue present medications. - Await pathology results. Procedure Code(s): --- Professional --- 15015, Esophagogastroduodenosco py, flexible, transoral; with insertion of guide wire followed by passage of dilator(s) through esophagus over guide wire 93747, 59,51, Esophagogastroduodenosco py, flexible, transoral; with biopsy, single or multiple CPT copyright 2021 [employer]. All rights reserved. The codes documented in this report are preliminary and upon label coder review may be revised to meet current compliance requirements. Aron Frank DO 10/10/2024 7:31:21 AM This report has been signed electronically. Number of Addenda: 0 Note Initiated On: 10/10/2024 7:11 AM 10/10/24 0731 Date Aron Monika Clarke Signature: Date (if indicated) CC: Dr. Danielle Paige (more content not included)... [facility] MR/POSTOP.[facility] 10-10-2024 MR/POSTOP.[facility] Medical Records Department [address] [facility] [address] Anesthesia Postop Eval I 10/10/24751 MR#: [id number] Acct: [id number] Name: MARGIE FULTON Rep #: [id number] : 1940 84 From: Rocky Worthy PCP: Dr. Danielle Paige, DO Status:REG SDC Y Race: C Location: [place] [address] Anesthesia: Postop Eval I Current Vital Signs Temperature: 97.6 F Pulse Rate: 88 Blood Pressure: 101/72 Respiratory Rate: 16 Pulse Ox: 97 Oxygen Delivery Method: Room Air Assessment Airway patent: Yes Spontaneous unlabored respirations: Yes Mental status: Awake and Calm nausea: No Vomiting: No Anesthesia Complication: No Fluid Hydration Crystalloid volume administer (ml): 30 Total IV fluid infused: 30 Progress Note Anesthesia document: Postop Eval 1 completed: Yes 10/10/24752 Date Rocky Alvarez Signature: Date CC: Signed Normal [facility] MR/[id number] 10-10-2024 MR/POSTOPAN2 [facility] Medical Records Department [address] [place] [address] Anesthesia Postop Eval II 10/10/24 1204 MR#: [id number] Acct: [id number] Name: MARGIE FULTON Rep #: [id number] : 1940 84 From: Alex Rudolph MD PCP: Dr. Danielle Paige, DO Status:DEP [facility] Y Race: C Location: EN Anesthesia Postop Eval I Sum Postop Eval Completion status Anesthesia document: Postop Eval 1 completed: Yes Anesthesia Postop Eval I Summary Anesthesia Postop Eval I Summary: Anesthesia Postop Eval I: Assessment Summary Airway patent Yes 10/10/24 07:53 [email or web address] Spontaneous unlabored Yes 10/10/24 07:53 [email or web address] respirations Mental status Awake,Calm 10/10/24 07:53 [email or web address] nausea No 10/10/24 07:53 [email or web address] Vomiting No 10/10/24 07:53 [email or web address] Anesthesia Postop Eval I: Fluid Summary Crystalloid volume administer 30 10/10/24 07:53 [email or web address] (ml) Colloids volume administered ( ml) Blood Product volume administered (ml) Total IV fluid infused 30 10/10/24 07:53 [email or web address] Anesthesia Postop Eval I: Summary Notes Anesthesia Complication No 10/10/24 07:53 [email or web address] Anesthesia Complication Comment: Post-operative progress note Anesthesia: Postop Eval II Evaluation Mental status: Awake and Calm Pain Level: 0 nausea: No Vomiting: No Complications Anesthesia Complication: No 10/10/24 1204 Date Alex Rudolph MD Cosigner Signature: Date CC: Signed Normal [facility] Surgery Specimen Level Ethel 10-10-2024 Surgery Specimen Level IV Patient Age/Sex Location Account Attending Physician MARGIE FULTON 84/F EN [id number] Aron Frank DO Specimen: [id number] Received: 10/10/24 Status: GRADY Kendall Num: [id number] Spec Type: EGD BIOPSY Subm Dr: Aron Frank DO HEADER OPERATION: EGD with biopsy and dilation PRE-OP DIAGNOSIS: Cough, dysphagia TISSUE SUBMITTED: A- Distal esophagus biopsy MICROSCOPIC DIAGNOSIS A. DISTAL ESOPHAGUS, BIOPSY: -BENIGN SQUAMOUS MUCOSA NEGATIVE FOR EOSINOPHILS. -COLUMNAR MUCOSA NEGATIVE FOR GOBLET CELL METAPLASIA. MICROSCOPIC DESCRIPTION Slides are reviewed. GROSS DESCRIPTION A. Received in formalin labeled Margie Fulton, and designated distal esophagus biopsy, are two mayes tissue fragments aggregating to 0.7 x 0.4 x 0.2. Totally submitted in one cassette. JK 10/10/2024 CPT:39013 Patient Age/Sex Location Account Attending Physician MARGIE FULTON 84/F EN [id number] Aron Frank DO Signed (signature on file) Dr. Deysi Landa MD 10/15/24 8882 Normal [facility] Comment on above: Performed By: #### P SUIV ####[facility] [address] [place], [address] Abdomen Limitedon 10-08-2024 Abdomen Limited [facility] Imaging Services [address] [place] [address] Abdomen Limited MR#: [id number] Acct: [id number] Name: MARGIE FULTON Rep #: [id number] : 1940 F 84 From: Ela Gifford nd, MD PCP: Dr. Danielle Paige DO Status: REG CLI Study: Abdomen Limited Date of Exam: 10/08/24 Exam# [id number] Ordering Dr: Savanna Gagnon PROCEDURE: ABDOMEN LIMITED 10/08/2024 REASON FOR EXAM: 84-year-old female, elevated alkaline phosphatase. COMPARISON: None. FINDINGS: Liver: Diffusely echogenic suggesting fatty infiltration. Normal in size measuring 13.2 cm. The bile ducts are within normal limits. The main portal veins patent with normal directional flow. Gallbladder: Soft tissue mass within the gallbladder fundus measuring 2.2 x 1.4 x 0.7 cm. The gallbladder is distended without gallbladder wall thickening or pericholecystic fluid. Negative Lee's sign. Common bile duct: Normal measuring 0.4 cm. Pancreas: Visualized portions are sonographically unremarkable. Other: Visualized portions of the right renal cortex are unremarkable. Dilated right renal pelvis measuring up to 1.4 cm. No right upper quadrant ascites. US/Abdomen Limited IMPRESSION: 1. Soft tissue mass within the gallbladder fundus, which may represent gallbladder neoplasm or gallbladder sludge. Correlation with cross-sectional imaging (CT or MRI) is recommended for further evaluation. 2. Dilation of the right renal pelvis without obvious renal cortical thinning. This could also be evaluated on cross-sectional imaging. 3. Mild hepatic steatosis. Reading Location: [facility] CC: COSMETICS DEMONSTRATOR-C Savanna Gagnon; Dr. Danielle Paige DO Doula: Signed [facility] MR/PATITAlove 10-08-2024 MR/PAT.[facility] Medical Records Department [address] [place] [address] PAT - Anesthesia 10/08/24 185 MR#: [id number] Acct: [id number] Name: MARGIE FULTON Rep #: [id number] : 1940 84 From: Alex Rudolph MD PCP: Dr. Danielle Paige DO Status:PRE SDC Y Race: C Location: EN Pre-Assessment Diagnosis/Proposed Procedure Planned Operative Procedure(s): EGD Anesthesia History Anesthesia History - clinical services director: Anesthesia History - clinical services director Hx Hospitalization No 10/08/24 11:46 Any Problems With Anesthesia No 10/08/24 11:46 Cholinesterase deficiency No 10/08/24 11:46 You/Your Family Experience No 10/08/24 11:46 fever (hyperthermia) with Relationship Recent Exposure to Contagious Disease Does patient have nerve No 10/08/24 11:46 stimulator Patient instructed to have device shut off --Does patient have Pacemaker or ICD? When Was Last Pacemaker Check QUESTION #4 FULL TEXT: You/Your Family Experience fever (hyperthermia) with Anesthesia Last Oral Intake Last Oral intake: Last Oral Intake NPO since Meds taken in AM with sips of water? Meds patient instructed to take am of surgery PONV PONV - clinical services director: PONV - clinical services director Female Yes 10/08/24 11:46 HX of Motion Sickness No 10/08/24 11:46 HX of N/V After Surgery No 10/08/24 11:46 Non-Smoker Yes 10/08/24 11:46 Duration of Surgery greater No 10/08/24 11:46 than 60 minutes Number of Risk Factors 2 10/08/24 11:46 PONV Score Moderate Risk 10/08/24 11:46 Height Weight Height Weight: Anesthesia: Height Weight Height 5 ft 5 in 09/05/24 08:02 Respiratory Assessment Respiratory Assessment - clinical services director: Respiratory Tract Infection Hx - clinical services director Hx Respiratory Tract Infection No 10/08/24 11:46 STOP Sleep Apnea STOP Sleep Apnea - clinical services director: STOP Sleep Apnea - clinical services director Hx Hypertension No 10/08/24 11:46 Hx Sleep Apnea No 10/08/24 11:46 CPAP No 10/08/24 11:46 BIPAP No 10/08/24 11:46 Do you snore loudly (louder No 10/08/24 11:46 than talking or can be heard Do you often feel tired/ No 10/08/24 11:46 fatigued/ sleepy during daytime? Has anyone observed you stop No 10/08/24 11:46 breathing during sleep? STOP Results Negative 10/08/24 11:46 QUESTION #5 FULL TEXT : Do you snore loudly (louder than talking or can be heard through closed doors)? Tobacco Use History Tobacco Use History - clinical services director: Tobacco Use History - clinical services director Tobacco Use Smoking Status Never smoker 10/08/24 11:46 Hx Tobacco Use No 10/08/24 11:46 Years Smoking Packs Smoked per Day Smoking Cessation Date was within the last 15 years Hx Smoking Cessation Date Hx Smoking Cessation Counseling Hematologic Medial History Hematologic Hx - clinical services director: Hematologic Medical Hx - community service representative Hx of Blood Transfusion Yes 10/08/24 11:46 Hx of Transfusion in last 3 No 10/08/24 11:46 Months Date of Last Transfusion (if within last 3 months) Ever experience any problems No 10/08/24 11:46 with transfusion(s)? Specify any problems Hx of Preganancy in last 3 No 10/08/24 11:46 Months Nurse Filling Out Transfusion VCHRISTIN 10/08/24 11:46 Questions: Date: 10/08/24 10/08/24 11:46 Time: 11:47 10/08/24 11:46 Patient unable to answer at this time (ie. confused, unrespo /Reproduction History /Reproductive History - clinical services director: /Reproductive Hx- clinical services director Hx Now Gestational Age (in weeks): EDC: Hx Hx Para [facility] History (Updated 10/08/24 @ 11:46 by Jackelyn Donald) Wears glasses Post-menopausal Cancer Thyroid disease Gastric reflux Non-smoker Shortness of breath on exertion Chronic cough Leg cramps Normal Holter exam History of echocardiogram History of stress test Cardiology follow-up encounter Chest pain RLS (restless legs syndrome) Osteoporosis Arthritis Hyperlipidemia Tachycardia Asthma Lung nodules Home Medications ???Medication ???Instructions ???Recorded ???Last Taken ???Type denosumab 60 mg/mL subcutaneous 60 mg subcut .Q6 MONTHS 04/17/20 U nknown History syringe omeprazole 40 mg capsule,delayed 40 mg PO DAILY 04/17/20 Unknown Hi story release liothyronine 5 mcg tablet (Cytomel) 5 mcg PO DAILY 04/21/23 Unknown History calcium 600 mg (as 1 tab PO BID 09/11/23 Unknown Hist ory carbonate)-vitamin D3 20 mcg (800 unit) tablet mecobalamin (vitamin B12) 1,000 1,000 mcg PO DAILY 09/11/23 Unknow n History mcg c (more content not included)... Normal [facility] Esophagus Dual Contraston Esophagus Dual Contrast [facility] Imaging Services [address] [place], [place] [address] Esophagus Dual Contrast MR#: [id number] Acct: [id number] Name: MARGIE FULTON Rep #: [id number] : 1940 F 84 From: Quoc castillo MD PCP: Dr. Danielle Paige DO Status: REG CLI Study: Esophagus Dual Contrast Date of Exam: 09/27/24 Exam# [id number] Ordering Dr: Savanna Gagnon PROCEDURE: ESOPHAGUS DUAL CONTRAST REASON FOR EXAM: DYSPHAGIA Chronic cough. TECHNIQUE: FLUOROSCOPIC TIME: 50 seconds. FLUOROGRAPHIC IMAGES: 45 fluoroscopic images. COMPARISON: None. FINDINGS: The patient ingested barium. Multiple fluoroscopic images of the esophagus were obtained. The esophagus is unremarkable. No evidence of gastroesophageal reflux. No obstruction is seen. The patient ingested a 12 mm tablet the barium. The tablet is trapped at the gastroesophageal junction. There is evidence of dextroscoliosis of the thoracic spine with multilevel disc space narrowing. RAD/Esophagus Dual Contrast IMPRESSION: The ingested a 12 mm tablet the barium is trapped at the gastroesophageal junction. No evidence of gastroesophageal reflux. Reading Location: [place] [address] CC: ZACKARY Gagnon; Dr. Danielle Paige DO Doula: Signed Normal [facility] Modified Barium Swallow Stud yon 09-25-2024 Modified Barium Swallow Study [facility] Speech Pathology [address] [place] [address] Modified Barium Swallow Study MR#: [id number] Acct: [id number] Name: MARGIE FULTON Rep #: [id number] : 1940 84 From: Jazlyn Fraser M.A., [facility]-CONCRETE BUSTER OPERATOR Modified Barium Swallow Patient Information Study Date: 09/24/24 Study Time: 13:30 Direct Billable Minutes: 79 Total Minutes procedure reportin Diagnosis: Dysphaiga R13.10 Referring Physician: Savanna Gagnno Reason for Referral: Assess swallow function, assess risk for aspiration, and determine recommendations for least restrictive diet textures and compensatory strategies to improve safety of swallow. Medical History: Pt reports swallowing difficulty for >6months now, which is progressively getting worse. She reports coughing throughout the day sometimes w/o oral intake but also w/ foods and drinks. She has a sensitive oral cavity, which after thrush treatment and further evaluation by her physicians was diagnosed as Sjogren's Syndrome. She currently takes omeprazole to manage GERD. CONCRETE BUSTER OPERATOR inspected oral cavity and pt has hard, bony-like protrusions in FOM. Current Diet Ordered: Regular textures / Thin liquids Dentition: Natural Teeth Mental Status: WNL Respiratory Status: Oxygenating on Room Air Penetration-Aspiration Scale Penetration-Aspiration Scale: OBJECTIVE ASSESSMENT OF SWALLOW FUNCTION (QUANTITATIVE ??? PER TRIAL): PENETRATION / ASPIRATION SCALE (COOMBS): 1 = does not enter airway 2 = enters airway/above vocal folds/ejected 3 = enters airway/above vocal folds/not ejected 4 = enters airway/contacts vocal folds/ejected 5 = enters airway/contacts vocal folds/not ejected 6 = enters airway/below vocal folds/ejected 7 = enters airway/below vocal folds/not ejected despite effort 8 = enters airway/below vocal folds/no effort VIDEOFLOROSCOPIC SCALE SCORE (COOMBS): Grade I = aspiration of material that has penetrated into the laryngeal vestibule, intact cough reflex Grade II = aspiration < 10 % of the bolus, intact cough reflex Grade III = aspiration of < 10 % of the bolus, reduced cough reflex or aspiration of > 10 % of the bolus, intact cough reflex Grade IV = aspiration of > 10 % of the bolus, reduced cough reflex Penetration-Aspiration Scale Score Thin Liquid via teaspoon: Result: 1= does not enter airway Thin Liquid via teaspoon Trial 2: Result: 1= does not enter airway Thin Liquid via large single sip: cup: Result: 1= does not enter airway [place] Thick Liquid via large single sip: cup: Result: 1= does not enter airway Pudding via teaspoon: Result: 1= does not enter airway Comment: Esophageal screen - Retention of pudding in the middle esophagus. Thin Liquid via single sip: straw: Result: 1= does not enter airway Comment: Esophageal screen - little to no improvement in pudding retention. 1/2 cookie: Result: 1= does not enter airway Comment: Esophageal screen - Retention of cookie in the middle and lower esophagus w/ retrograde flow to the upper esophagus Thin Liquid via sequential sips:straw: Result: 1= does not enter airway Comment: Esophageal screen - Cookie retention somewhat improved w/ liquid washes. Sequential sips provided 2X to clear retention to lower esophagus, continued retrograde flow to middle esophagus. Oral Phase Labial Seal: No Labial Escape Tongue Control During Bolus Hold: Cohesive bolus between tongue to palatal seal Bolus Preparation/Mastication: Timely and efficient chewing and mashing Bolus Transport/Lingual Motion: Brisk tongue motion Oral Residue: Residue collection on oral structures Pharyngeal Phase Initiation of Pharyngeal Swallow: Bolus head in valleculae Soft Palate Elevation: No bolus between soft palate and pharyngeal wall Laryngeal Elevation: Comp. Superior move thyroid cart w/comp. apprx arytenoid cart-epig pet Anterior Hyoid Excursion: Complete anterior movement Epiglottic Movement: Complete inversion Laryngeal Vestibule Closure at Height of Swallow: Incomplete; narrow column of air/contrast in laryngeal vestibule (trace laryngeal penetration 1X w/ complete ejection) Pharyngeal Stripping Wave: Present - complete Pharyngoesophageal Segment Opening: Complete distension and complete duration; no obstruction of flow Tongue Base Retraction: Trace column of contrast between tongue base post. pharyngeal wall Pharyngeal Residue: Trace residue within or on pharyngeal structures Esophageal Phase Esophageal Clearance: Esophageal retention w/ retrograde flow below pharyngoesophageal seg. Diagnosis/Impression Diagnosis: Esophageal dysphagia R13.14 Impression: Oropharyngeal swallow function grossly WNL. The esophageal phase is primarily marked by... -Retention of pudding in the middle esophagus, with little to no improvement w/ thin liquid wash. -Retention of cookie in the middle and lower esophagus w/ retrograde flow to the (more content not included)... Normal [facility] L501.5101on 09-24-2024 GGTP 85 IU/L Abnormal 0-60 [facility] Comment on above: Result Comment: Perf ormed at: CB - [facility] [address] [place], [place] [id number] Contact Center Consultant: Donny Armendariz PhD, Phone: [phone] Performed By: #### L 501.5101, L500.3400 ####[facility] [address] [place], [place], [id number] Bilirubin directOrdered By: Savanna Gagnon on 09-23-2024 Bilirubin.direct [Mass/Vol] 0.22 mg/dL 0.00-0.30 [facility] Bilirubin, totalOrdered By: Savanna Gagnon on 09-23-2024 Bilirubin [Mass/Vol] 0.44 mg/dL 0.00-1.30 [facility] Gamma glutamyl transferase ( GGT) measurementOrdered By: Savanna Gagnon on 09-23-2024 Amylase [Catalytic activity/Vol] 85 U/L High 0-60 [facility] Comment on above: Performed at: - [facility] [address] [place] [id number] Director: Donny Armendariz PhD, Phone: [phone] Laboratory - Chemistry and C hemistry - challengeOrdered By: Savanna Gagnon on 09-23-2024 AST [Catalytic activity/Vol] 28 U/L <32 [facility] Liver Profileon 09-23-2024 Albumin [Mass/Vol] 3.9 g/dL Normal 3.4-4.[address] [facility] Comment on above: Performed By: #### L 501.5101, L500.3400 ####[facility] [address] [place], [place], [id number] ALK PHOS 131 U/L High 35-104 [facility] Comment on above: Performed By: #### L 501.5101, L500.3400 ####[facility] [address] [place], [address] ALT [Catalytic activity/Vol] 21 U/L Normal <=34 [facility] Comment on above: Performed By: #### L 501.5101, L500.3400 ####[facility] [address] [place], [address] AST [Catalytic activity/Vol] 28 U/L Normal <=31 [facility] Comment on above: Performed By: #### L 501.5101, L500.3400 ####[facility] [address] [place], [address] Bilirubin [Mass/Vol] 0.44 mg/dL Normal 0.00-1.30 [facility] Comment on above: Performed By: #### L 501.5101, L500.3400 ####[facility] [address] [place], [address] Bilirubin.direct [Mass/Vol] 0.22 mg/dL Normal 0.00-0.30 [facility] Comment on above: Performed By: #### L 501.5101, L500.3400 ####[facility] [address] [place], [address] Globulin (S) [Mass/Vol] 2.6 g/dL Normal 2.2-4.2 [facility] Comment on above: Performed By: #### L 501.5101, L500.3400 ####[facility] [address] [place], [address] T PROT 6.4 g/dL Normal 5.9-8.4 [facility] Comment on above: Performed By: #### L 501.5101, L500.3400 ####[facility] [address] [place], [address] Serum globulin measurementOr dered By: Savanna Gagnon on 09-23-2024 Globulin (S) [Mass/Vol] 2.6 g/dL 2.2-4.2 [facility] Serum or plasma alanine vasquez otransferase (ALT) measurementOrdered By: Savanna Gagnon on 09-23-2024 ALT [Catalytic activity/Vol] 21 U/L <35 [facility] Serum or plasma albumin valeri urement (mass/volume)Ordered By: Savanna Gagnon on 09-23-2024 Albumin [Mass/Vol] 3.9 g/dL 3.4-4.[address] [facility] Serum or plasma alkaline darrell sphatase measurementOrdered By: Savanna Gagnon on 09-23-2024 ALP [Catalytic activity/Vol] 131 U/L High 35-104 [facility] Total proteinOrdered By: Zayra Gagnon on 09-23-2024 Protein [Mass/Vol] 6.4 g/dL 5.9-8.[address] [facility] Pulmonary Visit Reporton Pulmonary Visit Report [facility] [place] [id number] [facility] [place] [address] OFFICE VISIT Date of Service: 09/05/24 MR#: [id number] Acct: [id number] Name: MARGIE FULTON Rep #: [id number] : 1940 Provider: ZACKARY Connors Age/Sex: 84/F Location: [facility] Status: Signed Assessment and Plan Assessment and Plan (1) Asthma: Status: Chronic Qualifiers: Asthma severity: mild Asthma persistence: intermittent Asthma complication type: uncomplicated Qualified Code(s): J45.20 - Mild intermittent asthma, uncomplicated Plan: Recently the patient has not required the use of a maintenance inhaler. She does not appear to be in exacerbation and does not require any antibiotics or steroids. No additional testing today. I did confirm that the patient can proceed without the use of a maintenance inhaler and to her symptoms. However, if she notices that she feels the need for the albuterol for rescue more than 2 times per week this would be an indication that she should resume the daily Advair. She confirms understanding. We will follow-up in the office in 5 months to evaluate whether or not she was able to stay off of a daily inhaler. At that time, if the patient is stable and only has mild intermittent symptoms she may follow-up with her primary care doctor. This will be discussed in depth at her follow-up visit. She is agreeable with this plan. HPI 6 M FU Chief Complaint: routine follow up HPI Comments Details: This patient presents to the office today for follow-up of her asthma and to discuss recent test results. She is ambulatory and currently on room air. She has not recently been seen in the ED or urgent care for any respiratory illness. She has not recently required antibiotics or steroids for any breathing problems. She stopped taking Advair 08/22/24 due to recurrent thrush. She admits that symptoms have not gotten worse since stopping the Advair. She has not recently needed to use her albuterol rescue inhaler. She was treated by her primary care doctor initially with nystatin, which was ineffective. She then took a pill which was also ineffective. She has an appointment tomorrow with the primary care doctor for a planned scraping and additional treatment. She continues to experience shortness of breath on exertion, it has not progressed. She reports a cough that is productive of white sputum, she denies any hemoptysis. She denies any wheezing, chest tightness, chest pain or palpitations. She denies any fever, chills or body aches. If you recall, she is a lifelong never smoker. 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 Accompanied by: Self Allergies No Known Allergies Allergy (Verified 09/05/24 08:05) Medications ???Medication ???Instructions ???Recorded ???Confirmed ???Type denosumab 60 mg/mL subcutaneous 60 mg SQ QMONTH 04/17/20 09/05/24 History syringe omeprazole 40 mg capsule,delayed 40 mg PO DAILY 04/17/20 09/05/24 H istory release liothyronine 5 mcg tablet (Cytomel) 5 mcg PO DAILY 04/21/23 5 History calcium 600 mg (as 1 tab PO BID 09/11/23 09/05/24 His tory carbonate)-vitamin D3 20 mcg (800 unit) tablet mecobalamin (vitamin B12) 1,000 1,000 mcg PO DAILY 09/11/23 History mcg chewable tablet diltiazem HCl 30 mg tablet 30 mg PO QDAY 10/04/23 09/05/24 Hi story fluticasone propionate 230 2 inh inhalation BID #3 ea 4 09/05/24 Rx mcg-salmeterol 21 mcg/actuation HFA inhaler (Advair HFA) sulindac 200 mg tablet 200 mg PO BID 08/26/24 09/05/24 Hi story Have you fallen in the past year?: No PFSH Medical History (Updated 09/05/24 @ 12:28 by Abril Connors COSMETICS DEMONSTRATOR, COSMETICS DEMONSTRATOR-C) RLS (restless legs syndrome) Osteoporosis Arthritis Hyperlipidemia Tachycardia Asthma Lung nodules Surgical History (Reviewed 09/05/24 @ 08:21 by Abril Connors COSMETICS DEMONSTRATOR, COSMETICS DEMONSTRATOR-C) History of lobectomy of lung H/O vaginal surgery History of surgery on upper extremity Complete tear of sacrospinous ligament Cataract fragments of eye following cataract surgery History of genitourinary surgery S/P cervical spinal fusion Hx of repair of rotator cuff H/O hand surgery History of total right knee replacement (TKR) Family History (Reviewed 09/05/24 @ 08:21 by Abril Connors COSMETICS DEMONSTRATOR, COSMETICS DEMONSTRATOR-C) Mother Rheumatoid arthritis Fathe (more content not included)... Normal [facility] Visit Repor ton 08-27-2024 Gastroenterology Visit Report [facility] [address] [place] [address] OFFICE VISIT Date of Service: 08/27/24 MR#: [id number] Acct: [id number] Name: MARGIE FULTON Rep #: [id number] : 1940 Provider: ZACKARY duvall Age/Sex: 84/F Location: BMS.I Status: Signed Intake Vital Signs 04/19/24 10:15 08/27/24 13:22 Height 5 ft 5 in 5 ft 5 in Weight: 136 lb BMI 22.6 BP 105/70 Respiration 16 Pulse 79 Pulse Oximetry (%) 95 Oxygen Delivery Method room air Intake Visit Reasons: Gastroesophageal reflux disease (GERD) Chief Complaint: cough 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 Is patient in pain?: No Allergies No Known Allergies Allergy (Verified 08/26/24 16:23) Medications ???Medication ???Instructions ???Recorded ???Confirmed ???Type denosumab 60 mg/mL subcutaneous 60 mg SQ QMONTH 04/17/20 08/27/24 History syringe omeprazole 40 mg capsule,delayed 40 mg PO DAILY 04/17/20 08/27/24 H istory release liothyronine 5 mcg tablet (Cytomel) 5 mcg PO DAILY 04/21/23 5 History calcium 600 mg (as 1 tab PO BID 09/11/23 08/27/24 His tory carbonate)-vitamin D3 20 mcg (800 unit) tablet mecobalamin (vitamin B12) 1,000 1,000 mcg PO DAILY 09/11/23 History mcg chewable tablet diltiazem HCl 30 mg tablet 30 mg PO QDAY 10/04/23 08/27/24 Hi story fluticasone propionate 230 2 inh inhalation BID #3 ea 4 08/27/24 Rx mcg-salmeterol 21 mcg/actuation HFA inhaler (Advair HFA) sulindac 200 mg tablet 200 mg PO BID 08/26/24 08/27/24 Hi story Have you fallen in the past year?: No PFSH Medical History RLS (restless legs syndrome) Osteoporosis Arthritis Hyperlipidemia Tachycardia Asthma Lung nodules COPD (chronic obstructive pulmonary disease) Surgical History History of lobectomy of lung H/O vaginal surgery History of surgery on upper extremity Complete tear of sacrospinous ligament Cataract fragments of eye following cataract surgery History of genitourinary surgery S/P cervical spinal fusion Hx of repair of rotator cuff H/O hand surgery History of total right knee replacement (TKR) Family History Mother Rheumatoid arthritis Father Rheumatoid arthritis Other Malignant neoplasm determined by biopsy of testicle Social History Smoking Status: Never smoker alcohol intake: current alcohol intake frequency: a few times a week Alcohol type: wine substance use type: does not use HPI HPI Chief Complaint: cough Details: MARGIE FULTON, is a 84 F who presents to the office today for Omeprazole 40mg daily LABS 08/07/2024 HGB 12.6, PLT 289, AST 38, ALP 177, CRP 9.19 01/24/2024 CEA 10.2 - denies any change in habits - denies any bleeding - non-productive cough with swallowing - dysphagia - upper esophagus - solids - intermittent - denies any H/O CVA ENT - prior to 2021 - due to cough and hoarseness - states laryngoscopy was negative [facility] lung CA - lobe ectomy October 2021 - no chemo or radiation - denies any kidney or cardiac issues - Colonoscopy 5 years ago was normal per patient - remains active - continues to drive - lives alone ROS Const Constitutional: Positive for fatigue; No fever(s) or weight change ENT ENT: No difficulty swallowing Gastro GI: No abdominal pain, belching, bloating, change in bowel habits, change in stool character, coffee ground emesis, constipation, cramping, diarrhea, heartburn, difficulty swallowing, feeling full early, excessive flatus, incontinent of stools, Vomiting blood/hematemesis, Blood in stool, loose stools, Black,tarry stools, nausea/dyspepsia, pain with swallowing, vomiting or other Musc Musculoskeletal: Positive for joint pain, muscle cramps, numbness, stiffness, tingling, Arthritis and restless legs Skin Skin: Positive for dry skin; No yellowing of the eye or itchy eyes Neuro Neurology: Positive for numbness, tingling and restless legs Psych Psychiatric: No anxiety and No depression Endo Endocrine: Positive for fatigue; No weight change Aller/Imm Allergy/Immunologic: No itchy eyes Jassi/Lymp Hematologic/Lymphatic: No easy bleeding or easy bruising Exam Const General: cooperative, healthy appearing, no acute distress and well developed Nutritional Appearance: average body habitus and well nourished Orientation: alert and oriented x3 HENMT Head: normocephalic Ears: hearing grossly normal bilaterally Mouth: moist mucous membranes Eyes Conjunctivae: conjunctivae normal Sclera: sclerae normal Neck Neck: normal visua (more content not included)... Normal [facility] LESTER w/ Reflex Mult Confirmon 08-09-2024 LESTER TABLE TNP Normal [facility] Comment on above: Performed By: #### L 500.4050, L505.7010, L501.22667, L101.9900, L501.9520, L501.6710, L506.0400, L3100.5450, L100.0100, L4600.0100 ####[facility] [address] [place], [place], [id number] ANTI-DNA (DS)AB TNP Normal [facility] Comment on above: Performed By: #### L 500.4050, L505.7010, L501.05159, L101.9900, L501.9520, L501.6710, L506.0400, L3100.5450, L100.0100, L4600.0100 ####[facility] [address] [place], [place], [id number] CCP IgG Antibodieson 025 CCP IgG Ab. 1 units Normal 0-19 [facility] Comment on above: Result Comment: Nega tive <20 Weak positive 20 - 39 Moderate positive 40 - 59 Strong positive >59 Performed at: [facility] [address] [id number] Contact Center Consultant: Donny Armendariz PhD, Phone: [phone] Performed By: #### L 500.4050, L505.7010, L501.55776, L101.9900, L501.9520, L501.6710, L506.0400, L3100.5450, L100.0100, L4600.0100 ####[facility] [address] [place], [address] LESTER serumOrdered By: Danielle tompkins on 08-07-2024 Anti-Nuclear Antibody Screen Negative Negative [facility] Comment on above: Performed at: [address] [id number] Director: Donny Armendariz PhD, Phone: [phone] Absolute lymphocyte countOrd ered By: Danielle Paige on 08-07-2024 Lymphocytes Auto (Unsp spec) [#/Vol] 1.21 10*3/uL 0.83-4.51 [facility] Absolute neutrophil countOrd ered By: Danielle Paige on 08-07-2024 Neutrophils (Bld) [#/Vol] 2.9 10*3/uL 2.0-7.7 [facility] Albumin to globulin ratioOrd ered By: Danielle Paige on 08-07-2024 Albumin/Globulin [Mass ratio] 1.0 {ratio} 0.9-2.4 [facility] Automated lymphocyte count a s percentage of total leukocytesOrdered By: Danielle Paige on 08-07-2024 Lymphocytes/100 WBC Auto (Unsp spec) 24.5 % 19-41 [facility] Basophil percentageOrdered B y: Danielle Paige on 08-07-2024 Basophils/100 WBC (Bld) 1.0 % 0-1 [facility] Bilirubin, totalOrdered By: Danielle Paige on 08-07-2024 Bilirubin [Mass/Vol] 0.50 mg/dL 0.20-1.00 [facility] Comment on above: For patients on eltr ombopag therapy, use of Dimension [place] TBIL is not recommended. Blood urea nitrogen (BUN)/cr eatinine ratioOrdered By: Danielle Paige on 08-07-2024 Urea nitrogen/Creatinine [Mass ratio] 23.5 mg/mg High 10-20 [facility] C-reactive protein measureme nt by high sensitivity methodOrdered By: Danielle Paige on 08-07-2024 C-Reactive Protein Extended Range 9.19 mg/L High 0.0-3.0 [facility] Comment on above: C-Reactive Protein ( CRP) provides useful information for thediagnosis, therapy and monitoring of inflammatory processesand associated diseases. For the evaluation of Relative Riskfor Cardiovascular Disease, a High Sensitivity CRP (HSCRP)should be ordered. C-reactive protein measurement by high sensitivity method 9.19 mg/L High 0.0-3.0 [facility] Comment on above: C-Reactive Protein ( CRP) provides useful information for thediagnosis, therapy and monitoring of inflammatory processesand associated diseases. For the evaluation of Relative Riskfor Cardiovascular Disease, a High Sensitivity CRP (HSCRP)should be ordered. CBC W/Diff, Automatedon 07-18 Absolute Lymph 1.21 X10 3/uL Normal 0.83-4.51 [facility] Comment on above: Performed By: #### L 500.4050, L505.7010, L501.45934, L101.9900, L501.9520, L501.6710, L506.0400, L3100.5450, L100.0100, L4600.0100 ####[facility] [address] [place], [address] Absolute Neut 2.9 X10 3/uL Normal 2.0-7.7 [facility] Comment on above: Performed By: #### L 500.4050, L505.7010, L501.76607, L101.9900, L501.9520, L501.6710, L506.0400, L3100.5450, L100.0100, L4600.0100 ####[facility] [address] [place], [address] Basophils/100 WBC (Bld) 1.0 % Normal 0-1 [facility] Comment on above: Performed By: #### L 500.4050, L505.7010, L501.47985, L101.9900, L501.9520, L501.6710, L506.0400, L3100.5450, L100.0100, L4600.0100 ####[facility] [address] [place], [address] Eosinophils/100 WBC (Bld) 3.8 % Normal 0-5 [facility] Comment on above: Performed By: #### L 500.4050, L505.7010, L501.69708, L101.9900, L501.9520, L501.6710, L506.0400, L3100.5450, L100.0100, L4600.0100 ####[facility] [address] [place], [place], [phone]) Erythrocyte distribution width (RBC) [Ratio] 14.7 % High 11.6-14.6 [facility] Comment on above: Performed By: #### L 500.4050, L505.7010, L501.09560, L101.9900, L501.9520, L501.6710, L506.0400, L3100.5450, L100.0100, L4600.0100 ####[facility] [address] [place], [address](142) Hematocrit (Bld) [Volume fraction] 40.2 % Normal 37-47 [facility] Comment on above: Performed By: #### L 500.4050, L505.7010, L501.44229, L101.9900, L501.9520, L501.6710, L506.0400, L3100.5450, L100.0100, L4600.0100 ####[facility] [address] [place], [place], [phone]) Hemoglobin (Bld) [Mass/Vol] 12.6 g/dL Normal 12.0-15.0 [facility] Comment on above: Performed By: #### L 500.4050, L505.7010, L501.64640, L101.9900, L501.9520, L501.6710, L506.0400, L3100.5450, L100.0100, L4600.0100 ####[facility] [address] [place], [place], [phone]) IG% 0.400 Normal 0.0-0.9 [facility] Comment on above: Result Comment: IG% - Immature Granulocytes (promyelocytes, myelocytes and metamyelocytes) > 1% indicates that a LEFT SHIFT is Present. Performed By: #### L 500.4050, L505.7010, L501.60180, L101.9900, L501.9520, L501.6710, L506.0400, L3100.5450, L100.0100, L4600.0100 ####[facility] [address] [place], [address] Lymphocytes/100 WBC (Bld) 24.5 % Normal 19-41 [facility] Comment on above: Performed By: #### L 500.4050, L505.7010, L501.44578, L101.9900, L501.9520, L501.6710, L506.0400, L3100.5450, L100.0100, L4600.0100 ####[facility] [address] [place], [address] MCH (RBC) [Entitic mass] 30.1 pg Normal 27.0-32.0 [facility] Comment on above: Performed By: #### L 500.4050, L505.7010, L501.20599, L101.9900, L501.9520, L501.6710, L506.0400, L3100.5450, L100.0100, L4600.0100 ####[facility] [address] [place], [address] MCHC (RBC) [Mass/Vol] 31.3 g/dL Low 32-36 [facility] Comment on above: Performed By: #### L 500.4050, L505.7010, L501.06181, L101.9900, L501.9520, L501.6710, L506.0400, L3100.5450, L100.0100, L4600.0100 ####[facility] [address] [place], [address] MCV (RBC) [Entitic vol] 95.9 fL Normal 81-99 [facility] Comment on above: Performed By: #### L 500.4050, L505.7010, L501.62605, L101.9900, L501.9520, L501.6710, L506.0400, L3100.5450, L100.0100, L4600.0100 ####[facility] [address] [place], [address] Monocytes/100 WBC (Bld) 10.9 % High 0-10 [facility] Comment on above: Performed By: #### L 500.4050, L505.7010, L501.35045, L101.9900, L501.9520, L501.6710, L506.0400, L3100.5450, L100.0100, L4600.0100 ####[facility] [address] [place], [address] Neutrophils/100 WBC (Bld) 59.4 % Normal 47-70 [facility] Comment on above: Performed By: #### L 500.4050, L505.7010, L501.32715, L101.9900, L501.9520, L501.6710, L506.0400, L3100.5450, L100.0100, L4600.0100 ####[facility] [address] [place], [address] Nucleated RBC (Bld) [#/Vol] 0 10*3/uL Normal 0-5 [facility] Comment on above: Performed By: #### L 500.4050, L505.7010, L501.69977, L101.9900, L501.9520, L501.6710, L506.0400, L3100.5450, L100.0100, L4600.0100 ####[facility] [address] [place], [address] Platelet mean volume (Bld) [Entitic vol] 10.0 fL Normal 6.2-12.0 [facility] Comment on above: Performed By: #### L 500.4050, L505.7010, L501.20873, L101.9900, L501.9520, L501.6710, L506.0400, L3100.5450, L100.0100, L4600.0100 ####[facility] [address] [place], [address] Platelets (Bld) [#/Vol] 289 10*3/uL Normal 150-450 [facility] Comment on above: Performed By: #### L 500.4050, L505.7010, L501.05604, L101.9900, L501.9520, L501.6710, L506.0400, L3100.5450, L100.0100, L4600.0100 ####[facility] [address] [place], [address] RBC (Bld) [#/Vol] 4.19 10*6/uL Low 4.2-5.4 [facility] Comment on above: Performed By: #### L 500.4050, L505.7010, L501.44011, L101.9900, L501.9520, L501.6710, L506.0400, L3100.5450, L100.0100, L4600.0100 ####[facility] [address] [place], [address] RDW SD 51.0 fl High 35.1-43.9 [facility] Comment on above: Performed By: #### L 500.4050, L505.7010, L501.66696, L101.9900, L501.9520, L501.6710, L506.0400, L3100.5450, L100.0100, L4600.0100 ####[facility] [address] [place], [address] WBC (Bld) [#/Vol] 4.9 10*3/uL Normal 4.4-11.[address] [facility] Comment on above: Performed By: #### L 500.4050, L505.7010, L501.15945, L101.9900, L501.9520, L501.6710, L506.0400, L3100.5450, L100.0100, L4600.0100 ####[facility] [address] [place], [address] CRPon 08-07-2024 C-REACTIVE PROT 9.19 mg/L High 0.0-3.0 [facility] Comment on above: Result Comment: C-Re active Protein (CRP) provides useful information for the diagnosis, therapy and monitoring of inflammatory processes and associated diseases. For the evaluation of Relative Risk for Cardiovascular Disease, a High Sensitivity CRP (HSCRP) should be ordered. Performed By: #### L 500.4050, L505.7010, L501.83438, L101.9900, L501.9520, L501.6710, L506.0400, L3100.5450, L100.0100, L4600.0100 ####[facility] [address] [place], [place], [phone] Carbon dioxide measurementOr dered By: Danielle Paige on 08-07-2024 CO2 [Moles/Vol] 28.0 mmol/L 21.0-32.0 [facility] Centromere B antibody assayO rdered By: Danielle Paige on 08-07-2024 Centromere B Antibody TNP [facility] Comment on above: Test not performed Chloride measurementOrdered By: Danielle Paige on 08-07-2024 Chloride [Moles/Vol] 106 mmol/L 98-107 [facility] Chromatin antibody assayOrde red By: Danielle Paige on 08-07-2024 Antichromatin Antibodies TNP [facility] Comment on above: Test not performed Comprehensive Metabolic Prof ilon 08-07-2024 Albumin [Mass/Vol] 3.3 g/dL Normal 3.2-5.[address] [facility] Comment on above: Performed By: #### L 500.4050, L505.7010, L501.26000, L101.9900, L501.9520, L501.6710, L506.0400, L3100.5450, L100.0100, L4600.0100 ####[facility] [address] [place], [place], [phone] Albumin/Globulin [Mass ratio] 1.0 {ratio} Normal 0.9-2.4 [facility] Comment on above: Performed By: #### L 500.4050, L505.7010, L501.41691, L101.9900, L501.9520, L501.6710, L506.0400, L3100.5450, L100.0100, L4600.0100 ####[facility] [address] [place], [place], [phone] ALK P 177 U/L High 45-117 [facility] Comment on above: Performed By: #### L 500.4050, L505.7010, L501.14804, L101.9900, L501.9520, L501.6710, L506.0400, L3100.5450, L100.0100, L4600.0100 ####[facility] [address] [place], [place], [id number] ALT [Catalytic activity/Vol] 41 U/L Normal 13-56 [facility] Comment on above: Performed By: #### L 500.4050, L505.7010, L501.09768, L101.9900, L501.9520, L501.6710, L506.0400, L3100.5450, L100.0100, L4600.0100 ####[facility] [address] [place], [place], [id number] AST [Catalytic activity/Vol] 38 U/L High 15-37 [facility] Comment on above: Performed By: #### L 500.4050, L505.7010, L501.20700, L101.9900, L501.9520, L501.6710, L506.0400, L3100.5450, L100.0100, L4600.0100 ####[facility] [address] [place], [address] Bilirubin [Mass/Vol] 0.50 mg/dL Normal 0.20-1.00 [facility] Comment on above: Result Comment: For patients on eltrombopag therapy, use of Dimension [place] TBIL is not recommended. Performed By: #### L 500.4050, L505.7010, L501.28569, L101.9900, L501.9520, L501.6710, L506.0400, L3100.5450, L100.0100, L4600.0100 ####[facility] [address] [place], [place], [phone](873) BUN/CRE 23.5 RATIO High 10-20 [facility] Comment on above: Performed By: #### L 500.4050, L505.7010, L501.78327, L101.9900, L501.9520, L501.6710, L506.0400, L3100.5450, L100.0100, L4600.0100 ####[facility] [address] [place], [address] CA,Total 9.5 mg/dL Normal 8.5-10.1 [facility] Comment on above: Performed By: #### L 500.4050, L505.7010, L501.53272, L101.9900, L501.9520, L501.6710, L506.0400, L3100.5450, L100.0100, L4600.0100 ####[facility] [address] [place], [address] Chloride [Moles/Vol] 106 mmol/L Normal 98-107 [facility] Comment on above: Performed By: #### L 500.4050, L505.7010, L501.87328, L101.9900, L501.9520, L501.6710, L506.0400, L3100.5450, L100.0100, L4600.0100 ####[facility] [address] [place], [address] CO2 [Moles/Vol] 28.0 mmol/L Normal 21.0-32.0 [facility] Comment on above: Performed By: #### L 500.4050, L505.7010, L501.81188, L101.9900, L501.9520, L501.6710, L506.0400, L3100.5450, L100.0100, L4600.0100 ####[facility] [address] [place], [place], [phone] Creatinine [Mass/Vol] 0.81 mg/dL Normal 0.55-1.02 [facility] Comment on above: Result Comment: The validity of the calculated GFR GFRAA in patients over 70 years has not been determined. Clinical correlation is essential. Performed By: #### L 500.4050, L505.7010, L501.59596, L101.9900, L501.9520, L501.6710, L506.0400, L3100.5450, L100.0100, L4600.0100 ####[facility] [address] [place], [address] EST GFR - AA 87 mL/min Normal >60 [facility] Comment on above: Result Comment: Afri can Ivorian GFR Calc Performed By: #### L 500.4050, L505.7010, L501.42603, L101.9900, L501.9520, L501.6710, L506.0400, L3100.5450, L100.0100, L4600.0100 ####[facility] [address] [place], [address] GAP 6 Normal 5-15 [facility] Comment on above: Performed By: #### L 500.4050, L505.7010, L501.14819, L101.9900, L501.9520, L501.6710, L506.0400, L3100.5450, L100.0100, L4600.0100 ####[facility] [address] [place], [address] GFR/1.73 sq M.predicted among non-blacks MDRD (S/P/Bld) [Vol rate/Area] 72 mL/min/{1.73_m2} Normal >60 [facility] Comment on above: Result Comment: Non- GFR Calc Performed By: #### L 500.4050, L505.7010, L501.58103, L101.9900, L501.9520, L501.6710, L506.0400, L3100.5450, L100.0100, L4600.0100 ####[facility] [address] [place], [address] Globulin (S) [Mass/Vol] 3.4 g/dL Normal 2.2-4.2 [facility] Comment on above: Performed By: #### L 500.4050, L505.7010, L501.95985, L101.9900, L501.9520, L501.6710, L506.0400, L3100.5450, L100.0100, L4600.0100 ####[facility] [address] [place], [address] Glucose [Mass/Vol] 87 mg/dL Normal 74-[address] [facility] Comment on above: Performed By: #### L 500.4050, L505.7010, L501.41864, L101.9900, L501.9520, L501.6710, L506.0400, L3100.5450, L100.0100, L4600.0100 ####[facility] [address] [place], [address] Potassium [Moles/Vol] 3.8 mmol/L Normal 3.5-5.1 [facility] Comment on above: Performed By: #### L 500.4050, L505.7010, L501.76914, L101.9900, L501.9520, L501.6710, L506.0400, L3100.5450, L100.0100, L4600.0100 ####[facility] [address] [place], [place], [phone](224) Sodium [Moles/Vol] 140 mmol/L Normal 136-[address] [facility] Comment on above: Performed By: #### L 500.4050, L505.7010, L501.84929, L101.9900, L501.9520, L501.6710, L506.0400, L3100.5450, L100.0100, L4600.0100 ####[facility] [address] [place], [place], [phone](557) T PROT 6.7 g/dL Normal 6.4-8.2 [facility] Comment on above: Performed By: #### L 500.4050, L505.7010, L501.19952, L101.9900, L501.9520, L501.6710, L506.0400, L3100.5450, L100.0100, L4600.0100 ####[facility] [address] [place], [address] Urea nitrogen [Mass/Vol] 19 mg/dL High 7-18 [facility] Comment on above: Performed By: #### L 500.4050, L505.7010, L501.77333, L101.9900, L501.9520, L501.6710, L506.0400, L3100.5450, L100.0100, L4600.0100 ####[facility] [address] [place], [address] Cyclic citrullinated peptide IgG QnOrdered By: Danielle Paige on 08-07-2024 Cyclic Citrullinated Peptide IgG Ab 1 units 0-19 [facility] Comment on above: Negative <20 Weak po sitive 20 - 39 Moderate positive 40 - 59 Strong positive >59Performed at: [facility] [id number] Director: Donny Armendariz PhD, Phone: [phone] DNA double strand Ab Qn (S)O rdered By: Danielle Paige on 08-07-2024 Anti-Double Strand DNA Antibody TNP [facility] Comment on above: Test not performed Direct serum free thyroxine (FT4) measurementOrdered By: Danielle Paige on 08-07-2024 Free T4 [Mass/Vol] 0.57 ng/dL Low 0.76-1.[address] [facility] Eosinophil percentageOrdered By: Danielle Paige on 08-07-2024 Eosinophils/100 WBC (Bld) 3.8 % 0-5 [facility] Erythrocyte Sed Rateon 08-07 SED RATE 14 mm/hr Normal 0-30 [facility] Comment on above: Performed By: #### L 500.4050, L505.7010, L501.48909, L101.9900, L501.9520, L501.6710, L506.0400, L3100.5450, L100.0100, L4600.0100 ####[facility] [address] [place], [address] Erythrocyte distribution wid th ratioOrdered By: Danielle Paige on 08-07-2024 Erythrocyte distribution width (RBC) [Ratio] 14.7 % High 11.6-14.6 [facility] Erythrocyte distribution wid th standard deviationOrdered By: Danielle Paige on 08-07-2024 Erythrocyte distribution width (RBC) [Entitic vol] 51.0 fL High 35.1-43.9 [facility] Erythrocyte distribution width (RBC) [Ratio] 51.0 fl High 35.1-43.9 [facility] Erythrocyte sedimentation ra teOrdered By: Danielle Paige on 08-07-2024 ESR (Bld) [Velocity] 14 mm/h 0-30 [facility] Estimated glomerular filtrat ion rate (GFR) AmericanOrdered By: Danielle Paige on 08-07-2024 Estimated GFR (MDRD) Amer 87 mL/min >60 [facility] Comment on above: GFR Calc Free T3on 08-07-2024 Free T3 [Mass/Vol] 3.1 pg/mL Normal 2.18-3.[address] [facility] Comment on above: Performed By: #### L 500.4050, L505.7010, L501.51475, L101.9900, L501.9520, L501.6710, L506.0400, L3100.5450, L100.0100, L4600.0100 ####[facility] [id number] [place], [address] Free [id number] By: Danielle Murdock s on 08-07-2024 Free T3 [Mass/Vol] 3.1 pg/mL 2.18-3.[address] [facility] Free Triiodothyronine (T3) pg/dL 3.1 pg/mL 2.18-3.98 [facility] Glomerular filtration rate ( GFR) estimationOrdered By: Danielle Paige on 08-07-2024 Estimated GFR (MDRD) Non-Af Amer 72 mL/min >60 [facility] Comment on above: Non- GFR Calc GFR/1.73 sq M.predicted among non-blacks MDRD (S/P/Bld) [Vol rate/Area] 72 mL/min/{1.73_m2} >60 [facility] Comment on above: Non- GFR Calc Glucose measurementOrdered B y: Danielle Paige on 08-07-2024 Glucose [Mass/Vol] 87 mg/dL 74-[address] [facility] Hematocrit Auto (Bld) [Volum e fraction]Ordered By: Danielle Paige on 08-07-2024 Hematocrit (Bld) [Volume fraction] 40.2 % 37-47 [facility] Hemoglobin measurementOrdere d By: Danielle Paige on 08-07-2024 Hemoglobin (Bld) [Mass/Vol] 12.6 g/dL 12.0-15.0 [facility] Immature granulocytes/100 WB C Auto (Bld)Ordered By: Danielle Paige on 08-07-2024 Immature granulocytes/100 WBC (Bld) 0.400 % 0.0-0.9 [facility] Comment on above: IG% - Immature Granu locytes (promyelocytes, myelocytes and metamyelocytes) > 1% indicates that a LEFT SHIFT is Present. Sonali-1 antibody assayOrdered B y: Danielle Paige on 08-07-2024 SONALI-1 Antibody TNP [facility] Comment on above: Test not performed Laboratory - Chemistry and C hemistry - challengeOrdered By: Danielle Paige on 08-07-2024 AST [Catalytic activity/Vol] 38 U/L High 15-37 [facility] Lymphocytes Auto (Unsp spec) [#/Vol]Ordered By: Danielle Paige on 08-07-2024 Lymphocytes (Bld) [#/Vol] 1.21 10*3/uL 0.83-4.51 [facility] Lymphocytes/100 WBC Auto (Un sp spec)Ordered By: Danielle Paige on 08-07-2024 Lymphocytes/100 WBC (Bld) 24.5 % 19-41 [facility] MCV (mean corpuscular volume ) determinationOrdered By: Danielle Paige on 08-07-2024 MCV (RBC) [Entitic vol] 95.9 fL 81-99 [facility] Mean corpuscular hemoglobin (MCH) determinationOrdered By: Danielle Paige on 08-07-2024 MCH (RBC) [Entitic mass] 30.1 pg 27.0-32.0 [facility] Mean corpuscular hemoglobin concentration (MCHC) determinationOrdered By: Danielle Paige on 08-07-2024 MCHC (RBC) [Mass/Vol] 31.3 g/dL Low 32-36 [facility] Mean platelet volume determi nationOrdered By: Danielle Paige on 08-07-2024 Platelet mean volume (Bld) [Entitic vol] 10.0 fL 6.2-12.0 [facility] Monocyte percentageOrdered B y: Daniellekenny Paige on 08-07-2024 Monocytes/100 WBC (Bld) 10.9 % High 0-10 [facility] Neutrophil percentageOrdered By: Danielle Paige on 08-07-2024 Neutrophils/100 WBC (Bld) 59.4 % 47-70 [facility] Nucleated red blood cell per centageOrdered By: Danielle Paige on 08-07-2024 Nucleated RBC/100 WBC (Bld) [Ratio] 0 % 0-5 [facility] Platelet countOrdered By: Jasmyne Paige on 08-07-2024 Platelets (Bld) [#/Vol] 289 10*3/uL 150-450 [facility] Potassium measurementOrdered By: Danielle Paige on 08-07-2024 Potassium [Moles/Vol] 3.8 mmol/L 3.5-5.1 [facility] RBC Auto (Bld) [#/Vol]Ordere d By: Danielle Paige on 08-07-2024 RBC (Bld) [#/Vol] 4.19 10*6/uL Low 4.2-5.4 [facility] FLOATLIGHT POWDER MIXER abOrdered By: Danielle Paige on 08-07-2024 FLOATLIGHT POWDER MIXER Antibody ORP [facility] Comment on above: Test not performed Rheumatoid Factoron 08-07-19 25 RHEUMATOID FAC < 10.0 Normal <15 [facility] Comment on above: Performed By: #### L 500.4050, L505.7010, L501.58091, L101.9900, L501.9520, L501.6710, L506.0400, L3100.5450, L100.0100, L4600.0100 ####[facility] [address] [place], [place], [id number] Rheumatoid factor measuremen tOrdered By: Danielle Paige on 08-07-2024 Rheumatoid Factor < 10.0 IU/mL <15 [facility] SCL-70 extractable nuclear A b Qn (S)Ordered By: Danielle Paige on 08-07-2024 Scl-70 (Scleroderma) Antibody TNP [facility] Comment on above: Test not performed SS-A IgG antibody assayOrder ed By: Danielle Paige on 08-07-2024 SS-A/Ro IgG Antibody [facility] Comment on above: Test not performed SS-B IgG antibody assayOrder ed By: Danielle Paige on 08-07-2024 SS-B/La IgG Antibody [facility] Comment on above: Test not performed Serum DNA double strand anti body assay (units/volume)Ordered By: Danielle Paige on 08-07-2024 DNA double strand Ab Qn (S) [facility] Comment on above: Test not performed Serum Scl-70 antibody assay (units/volume)Ordered By: Danielle Paige on 08-07-2024 SCL-70 extractable nuclear Ab Qn (S) [facility] Comment on above: Test not performed Serum anion gap measurementO rdered By: Danielle Paige on 08-07-2024 Anion gap [Moles/Vol] 6 mmol/L 5-15 [facility] Serum globulin measurementOr dered By: Danielle Paige on 08-07-2024 Globulin (S) [Mass/Vol] 3.4 g/dL 2.2-4.2 [facility] Serum or plasma alanine vasquez otransferase (ALT) measurementOrdered By: Danielle Paige on 08-07-2024 ALT [Catalytic activity/Vol] 41 U/L 13-56 [facility] Serum or plasma albumin valeri urement (mass/volume)Ordered By: Danielle Paige on 08-07-2024 Albumin [Mass/Vol] 3.3 g/dL 3.2-5.[address] [facility] Serum or plasma alkaline darrell sphatase measurementOrdered By: Danielle Paige on 08-07-2024 ALP [Catalytic activity/Vol] 177 U/L High 45-117 [facility] Serum or plasma calcium valeri urement (mass/volume)Ordered By: Danielle Paige on 08-07-2024 Calcium [Mass/Vol] 9.5 mg/dL 8.5-10.[address] [facility] Serum or plasma creatinine m easurement (mass/volume)Ordered By: Danielle Paige on 08-07-2024 Creatinine [Mass/Vol] 0.81 mg/dL 0.55-1.02 [facility] Comment on above: The validity of the calculated GFR & GFRAA in patients over 70 years has not been determined. Clinical correlation is essential. Serum or plasma cyclic citru llinated peptide IgG antibody assay (units/volume)Ordered By: Danielle Paige on 08-07-2024 Cyclic citrullinated peptide IgG Qn 1 units 0-19 [facility] Comment on above: Negative <20 Weak po sitive 20 - 39 Moderate positive 40 - 59 Strong positive >59Performed at: [facility] [id number] [place], [place] [id number] Director: Donny Armendariz PhD, Phone: [phone] Serum or plasma thyroid stim ulating hormone (TSH) measurement (units/volume)Ordered By: Danielle Paige on 08-07-2024 TSH Qn 2.000 uIU/mL 0.358-3.740 [facility] Serum or plasma urea nitroge n measurement (mass/volume)Ordered By: Danielle Paige on 08-07-2024 Urea nitrogen [Mass/Vol] 19 mg/dL High 7-18 [facility] Garcia antibody assayOrdered By: Danielle Paige on 08-07-2024 SM Antibody TNP [facility] Comment on above: Test not performed Sodium levelOrdered By: Danielle Paige on 08-07-2024 Sodium [Moles/Vol] 140 mmol/L 136-[address] [facility] T4 Free Directon 08-07-2024 T4 FREE DIRECT 0.57 ng/dL Low 0.76-1.46 [facility] Comment on above: Performed By: #### L 500.4050, L505.7010, L501.03901, L101.9900, L501.9520, L501.6710, L506.0400, L3100.5450, L100.0100, L4600.0100 ####[facility] [address] [place], [address] TSH QnOrdered By: Danielle Paige on 08-07-2024 Thyroid Stimulating Hormone (TSH) 2.000 uIU/mL 0.358-3.740 [facility] Thyroid Stim Hormone (TSH)on 08-07-2024 TSH 2.000 uIU/mL Normal 0.358-3.740 [facility] Comment on above: Performed By: #### L 500.4050, L505.7010, L501.46261, L101.9900, L501.9520, L501.6710, L506.0400, L3100.5450, L100.0100, L4600.0100 ####[facility] [address] [place], [address] Total proteinOrdered By: Marnie Paige on 08-07-2024 Protein [Mass/Vol] 6.7 g/dL 6.4-8.[address] [facility] White blood cell (WBC) count Ordered By: Danielle Paige on 08-07-2024 WBC (Bld) [#/Vol] 4.9 10*3/uL 4.4-11.[address] [facility] UA DIP, URINE (POC)on 2023 BILIRUBIN UA (POCT) Negative Negative [facility] CLARITY UA (POCT) Clear [facility] COLOR UA (POCT) Yellow [facility] GLUCOSE UA (POCT) Negative Negative mg/dL [facility] Hemoglobin Ql (U) Negative Negative [facility] KETONE UA (POCT) Negative Negative mg/dL [facility] LEUKOCYTES UA (POCT) Negative Negative [facility] NITRITE UA (POCT) Negative Negative [facility] PH UA (POCT) 6.5 4.5 - 8.0 [facility] Protein Ql (U) Negative Negative mg/dL [facility] SPECIFIC GRAVITY UA (POCT) 1.010 1.005 - 1.030 [facility] UROBILINOGEN UA (POCT) 0.2 Kaylan l E.U./dL [facility] Location:[facility] UROGYNECOLOGY, [address] [place], [place], [address] [facility] POINT OF CARE [facility] Concha 03-21-2024 CNPN Telephone (GYURWP) -------- MARGIE FULTON ([id number]) 1940 F Date Time Provider Department 03/21/24 VINI MAURER During your visit today, we recorded the following information about you: Marline Yi RN 03/21/2024 1:51 PM Signed Botox 100 units 04/11 at with [facility] - 7th injection Previous injections: 10/12/23, 03/09/23, 09/07/22, 03/02/22, 09/01/21, and 02/24/21. PPX abx: Will need Blood thinners: Asa 81mg - still taking? Botox auth has been pending for a while. Emailed pharm auth to review. Marline Yi RN March 21, 2024 1:49 PM Marline Yi RN 03/21/2024 4:37 PM Signed 100 units Botox approved through 07/16/24 - NPCR. Sending to heavy forging machine operator for ppx abx order. Marline Yi RN March 21, 2024 4:37 PM Ny Moser APRN.CHIEF 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 03/21/2024 5:41 PM Signed The following approved medication requests have been transmitted electronically. Requested Prescriptions Signed Prescriptions Disp Refills sulfamethoxazole-trimeth oprim (BACTRIM DS) 800-160 mg per tablet 6 tablet 0 Sig: Take 1 tablet by mouth two times a day. Start one day before your bladder procedure. Authorizing Provider: [place] [facility] Pharmacy Information Pharmacy Address Telephone [id number] [place] [address] Ny Moser APRN.CHIEF 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 March 21, 2024 5:41 PM Juliette Peacock RN 03/27/2024 10:56 AM Signed Called patient, verified by name and date of . Patient advised Bactrim was sent to her [facility] on 03/21 and that she will need to start this the day before her procedure. Patient currently not taking any blood thinning medications. Advised we will get a urine sample from her the day of her procedure and to notify the hotel front office manager if she needs to use the restroom upon arrival. Patient verbalizes understanding and has no further questions at this time. Juliette Peacock RN March 27, 2024 10:51 AM Allergies As of Date: 03/21/2024 (No Known Allergies) Date Reviewed: 10/12/2023 Reviewed by: Jessie Krishna RN - Fully Assessed Reason for Visit: Care Coordination [3491] Cmt: Botox Primary Visit Diagnosis:Prophylactic antibiotic [Z79.2] Order(s):sulfamethoxazol e-trimethoprim (BACTRIM DS) 800-160 mg per tabletTake 1 tablet by mouth two times a day. Start one day before your bladder procedure.Disp: 6 tabletRfl: 0 Prescriptions as of 03/27/2024 - sulfamethoxazole-trimeth oprim (BACTRIM DS) 800-160 mg per tablet Take 1 tablet by mouth two times a day. Start one day before your bladder procedure. - furosemide (LASIX) 20 mg tablet Take 20 mg by mouth once daily. - liothyronine (CYTOMEL) 5 mcg tablet Take 5 mcg by mouth once daily. - fluticasone propion/salmeterol (ADVAIR HFA INHALATION) Inhale 2 Puffs as instructed once daily. - omeprazole magnesium (PRILOSEC ORAL) Take 40 mg by mouth once daily. - rOPINIRole (REQUIP) 1 mg tablet Take 1 mg by mouth daily at bedtime. - simvastatin (ZOCOR) 10 mg tablet Take 10 mg by mouth daily at bedtime. - calcium, elemental, tab Take 1 tablet by mouth twice daily. - multivitamin (MULTIPLE VITAMINS) tablet Take 1 tablet by mouth once daily. - aspirin, enteric coated (ASPIR-81) 81 mg EC tablet Take 1 tablet by mouth once daily. - meloxicam 7.5 mg tablet Take 1 tablet by mouth once daily. Problem List As Of Date 03/21/2024 Noted Resolved Primary osteoarthritis of first carpometacarpal*03/14/20 16 Palmar wrist ganglion [M67.439] 03/14/2016 Prescriptions ordered this encounter Disp Refills Start End SULFAMETHOXAZOLE 800 MG-TRIMETHOPRIM* 6 ta* 0 03/21/2024 Route: ORAL Sig: Take 1 tablet by mouth two times a day. Start one day before your bladder procedure. Encounter Status:Closed by MARLINE YI on 03/22/24 Normal [facility] PT D/C Summary (1)on 024 PT D/C Summary (1) [facility] [address] [place] [address] / REHABILITATION SERVICES DISCHARGE SUMMARY MR#: [id number] Acct: [id number] Name: MARGIE FULTON Rep #: [id number] : 1940 83 From: [place] [facility], ATC Referring Dr.: Dr. Danielle Paige DO Status: REG R CR Insurance: MEDICARE PART A B [employer] LIFE Discharge Summary D/C summary: It has been my pleasure to treat MARGIE FULTON referred by Dr. Danielle Paige DO, with the diagnosis of R chest pain for a total of 3 visit(s). Discharge Date: 02/22/24 Please see the following information for a summary of their discharge status. Subjective Subjective: I am getting stronger, and my pain is less Pain R chest wall: Pain Intensity (Out of 10): 2 Overall Improvement % Improvement: 50 Objective Objective/Function: Pt jean all ex's well and is now I with HEP Goals Goal 1:: Pt will be I with HEP in 3 PT visits Goal Progress: Goal Met Goal 2:: Decrease R chest pain x 50% to aid with pt's ability to sneeze without limitation Plan Plan: Discharge to HEP D/C Information Discharge Comments: DC to HEP d/c sentence: If there are questions or concerns regarding this patient's physical therapy, please feel free to call me at [phone]. Thank you for the referral of this patient. Sincerely, [place], PT, ATC Balance/Gait/Functional tests Improvement % Improvement: 50 02/22/24 1056 CC: Dr. Danielle Paige DO [facility] Signed Normal [facility] Chest without Contraston Chest without Contrast [facility] Imaging Services [address] [place] [address] Chest without Contrast MR#: [id number] Acct: [id number] Name: MARGIE FULTON Rep #: [id number] : 1940 F 83 From: [place] MD PCP: Dr. Danielle Paige DO Status: REG CL Study: Chest without Contrast Date of Exam: 01/26/24 Exam# [id number] Ordering Dr: Danielle Paige DO [id number] STUDY: CT CHEST WITHOUT CONTRAST REASON FOR EXAM: Female, 83 years old. History of prior right upper lobectomy. One month history of cough. RADIATION DOSAGE (If Supplied By Facility): CTDIvol = ( 7.99 ) mGy, DLP = ( 309.36 ) mGycm TECHNIQUE: Transaxial imaging was performed without the administration of intravenous contrast material. Multiplanar coronal and sagittal images were reformatted. Individualized dose optimization techniques were used for this CT. COMPARISON: Comparison is made with prior study dated May 07, 2021 FINDINGS: CHEST The patient is status post right upper lobectomy. Stable emphysematous changes. Stable scarring in the right lower lobe as well as in the left lower lobe. Stable linear scarring in the right middle lobe adjacent to the fissure. There is no demonstrated pleural abnormality. There are calcifications of the coronary arteries. Normal mediastinum. Normal hilar regions. Normal unenhanced pulmonary arteries. There is atherosclerotic calcification of the aortic arch. There are multi-level degenerative changes of the thoracic spine. There is no demonstrated abnormality of the visualized upper abdomen. CT/Chest without Contrast IMPRESSION: Stable examination. The patient is status post right upper lobectomy with mild emphysematous changes and scarring. Electronically Signed: Quoc Martins MD at 9:30 EDT , CC: Dr. Danielle Paige DO Doula: Signed Normal [facility] Carcinoembryonic Antigenon 0 01-25-2024 CEA 10.2 ng/mL High 0.0-4.7 [facility] Comment on above: Result Comment: Nons mokers <3.9 Smokers <5.6 [facility] Electrochemiluminescence Immunoassay (ECLIA) Values obtained with different assay methods or kits cannot be used interchangeably. Results cannot be interpreted as absolute evidence of the presence or absence of malignant disease. Performed at: [facility] [id number] Contact Center Consultant: Donny Armendariz PhD, Phone: [phone] Performed By: #### L 100.0100, L500.4050, L3100.2300 #### [facility] [address] [place], [address] CBC W/Diff, Automatedon 01-14 Absolute Lymph 1.67 X10 3/uL Normal 0.83-4.51 [facility] Comment on above: Performed By: #### L 100.0100, L500.4050, L3100.2300 #### [facility] [address] [place], [address] Absolute Neut 4.4 X10 3/uL Normal 2.0-7.7 [facility] Comment on above: Performed By: #### L 100.0100, L500.4050, L3100.2300 #### [facility] [address] [place], [address] Basophils/100 WBC (Bld) 0.7 % Normal 0-1 [facility] Comment on above: Performed By: #### L 100.0100, L500.4050, L3100.2300 #### [facility] [address] [place], [address] Eosinophils/100 WBC (Bld) 2.8 % Normal 0-5 [facility] Comment on above: Performed By: #### L 100.0100, L500.4050, L3100.2300 #### [facility] [address] [place], [address] Erythrocyte distribution width (RBC) [Ratio] 14.2 % Normal 11.6-14.6 [facility] Comment on above: Performed By: #### L 100.0100, L500.4050, L3100.2300 #### [facility] [address] [place], [address] Hematocrit (Bld) [Volume fraction] 36.1 % Low 37-47 [facility] Comment on above: Performed By: #### L 100.0100, L500.4050, L3100.2300 #### [facility] [address] [place], [address] Hemoglobin (Bld) [Mass/Vol] 11.5 g/dL Low 12.0-15.0 [facility] Comment on above: Performed By: #### L 100.0100, L500.4050, L3100.2300 #### [facility] [address] [place], [address] IG% 0.700 Normal 0.0-0.9 [facility] Comment on above: Result Comment: IG% - Immature Granulocytes (promyelocytes, myelocytes and metamyelocytes) > 1% indicates that a LEFT SHIFT is Present. Performed By: #### L 100.0100, L500.4050, L3100.2300 #### [facility] [address] [place], [address] Lymphocytes/100 WBC (Bld) 23.3 % Normal 19-41 [facility] Comment on above: Performed By: #### L 100.0100, L500.4050, L3100.2300 #### [facility] [address] [place], [address] MCH (RBC) [Entitic mass] 31.7 pg Normal 27.0-32.0 [facility] Comment on above: Performed By: #### L 100.0100, L500.4050, L3100.2300 #### [facility] [address] [place], [address] MCHC (RBC) [Mass/Vol] 31.9 g/dL Low 32-36 [facility] Comment on above: Performed By: #### L 100.0100, L500.4050, L3100.2300 #### [facility] [address] [place], [address] MCV (RBC) [Entitic vol] 99.4 fL High 81-99 [facility] Comment on above: Performed By: #### L 100.0100, L500.4050, L3100.2300 #### [facility] [address] [place], [address] Monocytes/100 WBC (Bld) 10.6 % High 0-10 [facility] Comment on above: Performed By: #### L 100.0100, L500.4050, L3100.2300 #### [facility] [address] [place], [address] Neutrophils/100 WBC (Bld) 61.9 % Normal 47-70 [facility] Comment on above: Performed By: #### L 100.0100, L500.4050, L3100.2300 #### [facility] [address] [place], [address] Nucleated RBC (Bld) [#/Vol] 0 10*3/uL Normal 0-5 [facility] Comment on above: Performed By: #### L 100.0100, L500.4050, L3100.2300 #### [facility] [address] [place], [address] Platelet mean volume (Bld) [Entitic vol] 8.9 fL Normal 6.2-12.0 [facility] Comment on above: Performed By: #### L 100.0100, L500.4050, L3100.2300 #### [facility] [address] [place], [address] Platelets (Bld) [#/Vol] 287 10*3/uL Normal 150-450 [facility] Comment on above: Performed By: #### L 100.0100, L500.4050, L3100.2300 #### [facility] [address] [place], [address] RBC (Bld) [#/Vol] 3.63 10*6/uL Low 4.2-5.4 [facility] Comment on above: Performed By: #### L 100.0100, L500.4050, L3100.2300 #### [facility] [address] [place], [address] RDW SD 51.8 fl High 35.1-43.9 [facility] Comment on above: Performed By: #### L 100.0100, L500.4050, L3100.2300 #### [facility] [address] [place], [address] WBC (Bld) [#/Vol] 7.2 10*3/uL Normal 4.4-11.[address] [facility] Comment on above: Performed By: #### L 100.0100, L500.4050, L3100.2300 #### [facility] [address] [place], [address] Comprehensive Metabolic Prof ilon 01-24-2024 Albumin [Mass/Vol] 3.2 g/dL Normal 3.2-5.[address] [facility] Comment on above: Performed By: #### L 100.0100, L500.4050, L3100.2300 #### [facility] [address] [place], [address] Albumin/Globulin [Mass ratio] 0.9 {ratio} Normal 0.9-2.4 [facility] Comment on above: Performed By: #### L 100.0100, L500.4050, L3100.2300 #### [facility] [address] [place], [address] ALK P 60 U/L Normal 45-117 [facility] Comment on above: Performed By: #### L 100.0100, L500.4050, L3100.2300 #### [facility] [address] [place], [address] ALT [Catalytic activity/Vol] 30 U/L Normal 13-56 [facility] Comment on above: Performed By: #### L 100.0100, L500.4050, L3100.2300 #### [facility] [address] [place], [address] AST [Catalytic activity/Vol] 29 U/L Normal 15-37 [facility] Comment on above: Performed By: #### L 100.0100, L500.4050, L3100.2300 #### [facility] [address] [place], [address] Bilirubin [Mass/Vol] 0.30 mg/dL Normal 0.20-1.00 [facility] Comment on above: Result Comment: For patients on eltrombopag therapy, use of Dimension [place] TBIL is not recommended. Performed By: #### L 100.0100, L500.4050, L3100.2300 #### [facility] [address] [place], [address] BUN/CRE 22.2 RATIO High 10-20 [facility] Comment on above: Performed By: #### L 100.0100, L500.4050, L3100.2300 #### [facility] [address] [place], [address] CA,Total 9.3 mg/dL Normal 8.5-10.1 [facility] Comment on above: Performed By: #### L 100.0100, L500.4050, L3100.2300 #### [facility] [address] [place], [address] Chloride [Moles/Vol] 104 mmol/L Normal 98-107 [facility] Comment on above: Performed By: #### L 100.0100, L500.4050, L3100.2300 #### [facility] [address] [place], [address] CO2 [Moles/Vol] 27.0 mmol/L Normal 21.0-32.0 [facility] Comment on above: Performed By: #### L 100.0100, L500.4050, L3100.2300 #### [facility] [address] [place], [address] Creatinine [Mass/Vol] 1.17 mg/dL High 0.55-1.02 [facility] Comment on above: Result Comment: The validity of the calculated GFR GFRAA in patients over 70 years has not been determined. Clinical correlation is essential. Performed By: #### L 100.0100, L500.4050, L3100.2300 #### [facility] [address] [place], [address] EST GFR - AA 57 mL/min Low >60 [facility] Comment on above: Result Comment: Afri can Ivorian GFR Calc Performed By: #### L 100.0100, L500.4050, L3100.2300 #### [facility] [address] [place], [address] GAP 6 Normal 5-15 [facility] Comment on above: Performed By: #### L 100.0100, L500.4050, L3100.2300 #### [facility] [address] [place], [address] GFR/1.73 sq M.predicted among non-blacks MDRD (S/P/Bld) [Vol rate/Area] 47 mL/min/{1.73_m2} Low >60 [facility] Comment on above: Result Comment: Non- GFR Calc Performed By: #### L 100.0100, L500.4050, L3100.2300 #### [facility] [address] [place], [address] Globulin (S) [Mass/Vol] 3.4 g/dL Normal 2.2-4.2 [facility] Comment on above: Performed By: #### L 100.0100, L500.4050, L3100.2300 #### [facility] [address] [place], [address] Glucose [Mass/Vol] 85 mg/dL Normal 74-[address] [facility] Comment on above: Performed By: #### L 100.0100, L500.4050, L3100.2300 #### [facility] [address] [place], [address] Potassium [Moles/Vol] 4.5 mmol/L Normal 3.5-5.1 [facility] Comment on above: Performed By: #### L 100.0100, L500.4050, L3100.2300 #### [facility] [address] [place], [address] Sodium [Moles/Vol] 137 mmol/L Normal 136-[address] [facility] Comment on above: Performed By: #### L 100.0100, L500.4050, L3100.2300 #### [facility] [address] [place], [address] T PROT 6.6 g/dL Normal 6.4-8.2 [facility] Comment on above: Performed By: #### L 100.0100, L500.4050, L3100.2300 #### [facility] [address] [place], [address] Urea nitrogen [Mass/Vol] 26 mg/dL High 7-18 [facility] Comment on above: Performed By: #### L 100.0100, L500.4050, L3100.2300 #### [facility] [address] [place], [address] Cardiology Visit Reporton Cardiology Visit Report [facility] [address] [place] [address] OFFICE VISIT Date of Service: 01/10/24 MR#: [id number] Acct: [id number] Name: MARGIE FULTON Rep #: [id number] : 1940 Provider: KATY Babin Age/Sex: 83/F Location: [facility] [place].[facility] Status: Signed HPI HPI History of Present Illness Details: Margie Fulton is an 83-year-old female that established with us in September 2023 for shortness of breath. She had a Holter monitor that was done by her PCP which demonstrated an average heart rate of 86 bpm and sinus rhythm. Minimum heart rate 63 bpm and sinus rhythm, maximum heart rate 135 bpm and sinus tachycardia. Longest R to R was 1.4 seconds. There is no atrial fibrillation or flutter noted. Rare supraventricular and ventricular ectopy. She did undergo an echocardiogram which demonstrated an ejection fraction of 60% with a RVSP of 28 mmHg. No valvular abnormalities noted. Stress test was normal at a low workload which could affect the sensitivity for detection of ischemia. Patient was able to walk 4.6 METS. Pt feels that she is still SOB with exertion, this has not changed over the last 6 months. It is similar to what she had when she came to see us. She does have pain in her right side of her chest. This has been for the last month. She had a cough for the last month following a URI. She was in to see pulmonary yesterday and had a CXR done, this is pending. She does have a hx of lung cancer with a lobectomy in 2020. Intake Vital Signs 10/04/23 12:09 01/04/24 07:53 01/10/24 08:28 Height 5 ft 6 in 5 ft 5 in 5 ft 5 in Weight: 141 lb 142 lb BMI 23.4 23.6 BP 103/66 115/72 Blood Pressure Location Lt brachial Lt brachial Position Sitting Sitting Respiration 18 18 Pulse 80 81 Pulse Source Monitor Monitor Temp 98.2 F Temperature Source Temporal Artery Pulse Oximetry (%) 97 99 Oxygen Delivery Method room air Intake Visit Reasons: 3 M FU 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 Is patient in pain?: No Allergies No Known Allergies Allergy (Verified 01/10/24 08:28) Medications ???Medication ???Instructions ???Recorded ???Confirmed ???Type denosumab 60 mg/mL subcutaneous 60 mg SQ QMONTH 04/17/20 01/10/24 History syringe omeprazole 40 mg capsule,delayed 40 mg PO DAILY 04/17/20 01/10/24 History release albuterol sulfate 90 mcg/actuation 2 puff inhalation Q4H PRN cough or 02/12/23 01/10/24 Rx aerosol inhaler chest tightness #8.5 grams liothyronine 5 mcg tablet (Cytomel) 5 mcg PO DAILY 04/21/23 01/10/24 History calcium carbonate 600 mg-vitamin 1 tab PO BID 09/11/23 01/10/24 History D3 20 mcg (800 unit) tablet mecobalamin (vitamin B12) 1,000 1,000 mcg PO DAILY 09/11/23 01/10/24 History mcg chewable tablet oxaprozin 600 mg tablet 600 mg PO BID 09/11/23 01/10/24 History cholecalciferol (vitamin D3) 50 50 mcg PO DAILY 10/04/23 01/10/24 History mcg (2,000 unit) tablet diltiazem HCl 30 mg tablet 30 mg PO QDAY 10/04/23 01/10/24 History fluticasone propionate 230 2 inh inhalation BID #3 ea 10/24/23 01/10/24 Rx mcg-salmeterol 21 mcg/actuation HFA inhaler (Advair HFA) Ejection fraction %: 65 Have you fallen in the past year?: No PFSH Medical History RLS (restless legs syndrome) Osteoporosis Arthritis Hyperlipidemia Tachycardia Asthma Lung nodules COPD (chronic obstructive pulmonary disease) Surgical History History of lobectomy of lung H/O vaginal surgery History of surgery on upper extremity Complete tear of sacrospinous ligament Cataract fragments of eye following cataract surgery History of genitourinary surgery S/P cervical spinal fusion Hx of repair of rotator cuff H/O hand surgery History of total right knee replacement (TKR) Family History Other No pertinent family history Social History Smoking Status: Never smoker alcohol intake: current alcohol intake frequency: a few times a week Alcohol type: wine substance use type: does not use ROS Const Const: Positive for fatigue and difficulty sleeping; Negative for weakness, headache(s), frequent falls or excessive sweating Eyes Eyes: Negative for loss of peripheral vision, transient loss of vision, blurry vision, double vision or tunnel vision ENT ENT: Positive for dizziness (Bending over); Negative for headache(s), Nosebleed/epistaxis or balance problems Cardio Chest Pain: No Palpitations: No Edema: None Muscle aches with walking: None Resp Respiratory: Positive for SOB with activity (Such as walking); Negative f (more content not included)... Normal [facility] Chest PA and Lateralon 01-08 Chest PA and Lateral [facility] Services [address] [place] [address] Chest PA and Lateral MR#: [id number] Acct: [id number] Name: MARGIE FULTON Rep #: [id number] : 1940 F 83 From: Rocky Zee MD PCP: Dr. Danielle Paige, DO Status: REG CLI Study: Chest PA and Lateral Date of Exam: 01/09/24 Exam# [id number] Ordering Dr: Catalina Miranda [id number] STUDY: X-RAY CHEST REASON FOR EXAM: Female, 83 years old. Chest pain. TECHNIQUE: Frontal and lateral views of the chest. COMPARISON: None. FINDINGS: Hyperinflation. Diffuse interstitial prominence. There is no demonstrated pleural abnormality. Cardiomegaly. Normal mediastinum and kieran. Normal visualized pulmonary arteries. Aortic tortuosity. Diffuse thoracic osteopenia with spondylosis. Normal visualized ribs, clavicles, and shoulders. No abnormality of the visualized soft tissue structures of the upper abdomen. RAD/Chest PA and Lateral IMPRESSION: Cardiomegaly with hyperinflation and diffuse mild interstitial prominence. No active or acute cardiopulmonary disease. Electronically Signed: Rocky Zee MD at 10:29 EDT , CC: ZACKARY Miranad; Dr. Danielle Paige DO [place]: Signed Normal [facility] Pulmonary Visit Reporton Pulmonary Visit Report [facility] of [address] [place] [address] OFFICE VISIT Date of Service: 01/04/24 MR#: [id number] Acct: [id number] Name: MARGIE FULTON Rep #: [id number] : 1940 Provider: ZACKARY Connors Age/Sex: 83/F Location: [facility] [place].[facility] Status: Signed Assessment and Plan Assessment and Plan (1) Asthma: Status: Chronic Qualifiers: Asthma complication type: uncomplicated Asthma persistence: intermittent Asthma severity: mild Qualified Code(s): J45.20 - Mild intermittent asthma, uncomplicated Plan: She does not appear to be in exacerbation of asthma today. No indication for antibiotics or repeat steroids. No change in maintenance medication. No additional testing at this time. Follow-up in the office in 6 months. Contact the office with any new or worsening symptoms in the meantime. HPI 6 M FU Chief Complaint: Routine follow-up HPI Comments Details: This patient presents to the office today for follow-up of her asthma and to discuss recent test results. She is ambulatory and currently on room air. She has not recently been seen in the ED or urgent care for any respiratory illness. If you recall, she was treated with a burst of prednisone. The patient reports that symptoms significantly improved while on prednisone. Her cough completely resolved. However, shortly after completing the prednisone the cough did return. She continues to experience shortness of breath on exertion, it has not progressed. She does have a persistent dry cough. She also has some chest tightness. She denies any palpitations. She denies any sputum production or hemoptysis. She denies any fever, chills or body aches. She is compliant with Advair 2 puffs twice daily. She does report rinsing her mouth out after each use. She denies any medication side effect such as sore throat or thrush. She has not recently needed to use her albuterol rescue inhaler. If you recall, she is a lifelong never smoker. Test results personally viewed patient: Walking oximetry completed on August 01, 2023. The patient was able to walk 1357 feet over the course of 6 minutes. She did not become hypoxic and does not currently require any supplemental oxygen at this time. 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 DME Vendor: None Accompanied by: Self Is patient in pain?: Yes (Right side chest with inspiration or change in position) Pain scale (1- 10): 5 Allergies No Known Allergies Allergy (Verified 01/04/24 09:47) Medications ???Medication ???Instructions ???Recorded ???Confirmed ???Type denosumab 60 mg/mL subcutaneous 60 mg SQ QMONTH 04/17/20 01/04/24 History syringe omeprazole 40 mg capsule,delayed 40 mg PO DAILY 04/17/20 01/04/24 History release albuterol sulfate 90 mcg/actuation 2 puff inhalation Q4H PRN cough or 02/12/23 01/04/24 Rx aerosol inhaler chest tightness #8.5 grams liothyronine 5 mcg tablet (Cytomel) 5 mcg PO DAILY 04/21/23 01/04/24 History calcium carbonate 600 mg-vitamin 1 tab PO BID 09/11/23 01/04/24 History D3 20 mcg (800 unit) tablet mecobalamin (vitamin B12) 1,000 1,000 mcg PO DAILY 09/11/23 01/04/24 History mcg chewable tablet oxaprozin 600 mg tablet 600 mg PO BID 09/11/23 01/04/24 History cholecalciferol (vitamin D3) 50 50 mcg PO DAILY 10/04/23 01/04/24 History mcg (2,000 unit) tablet diltiazem HCl 30 mg tablet 30 mg PO QDAY 10/04/23 01/04/24 History fluticasone propionate 230 2 inh inhalation BID #3 ea 10/24/23 01/04/24 Rx mcg-salmeterol 21 mcg/actuation HFA inhaler (Advair HFA) PFSH Medical History (Reviewed 01/04/24 @ 10:06 by Abril Connors COSMETICS DEMONSTRATOR, COSMETICS DEMONSTRATOR-C) RLS (restless legs syndrome) Osteoporosis Arthritis Hyperlipidemia Tachycardia Asthma Lung nodules COPD (chronic obstructive pulmonary disease) Surgical History (Reviewed 01/04/24 @ 10:06 by Abril Connors COSMETICS DEMONSTRATOR, COSMETICS DEMONSTRATOR-C) History of lobectomy of lung H/O vaginal surgery History of surgery on upper extremity Complete tear of sacrospinous ligament Cataract fragments of eye following cataract surgery History of genitourinary surgery S/P cervical spinal fusion Hx of repair of rotator cuff H/O hand surgery History of total right knee replacement (TKR) Family History (Reviewed 01/04/24 @ 10:06 by Abril Connors COSMETICS DEMONSTRATOR, COSMETICS DEMONSTRATOR-C) Other No pertinent family history Social History (more content not included)... Normal [facility] Basophil percentageOrdered B y: Danielle Paige on 11-02-2023 Bilirubin [Mass/Vol] 0.30 mg/dL 0.20-1.00 [facility] Comment on above: For patients on eltr ombopag therapy, use of Dimension [place] TBIL is not recommended. Chloride [Moles/Vol] 108 mmol/L 98-107 [facility] Glucose [Mass/Vol] 75 mg/dL 74-[address] [facility] Potassium [Moles/Vol] 4.2 mmol/L 3.5-5.1 [facility] Protein [Mass/Vol] 6.6 g/dL 6.4-8.[address] [facility] Sodium [Moles/Vol] 139 mmol/L 136-[address] [facility] Laboratory - Chemistry and C hemistry - challengeOrdered By: Danielle Paige on 11-02-2023 Albumin/Globulin [Mass ratio] 1.1 {ratio} 0.9-2.4 [facility] ALP [Catalytic activity/Vol] 47 U/L 45-117 [facility] ALT [Catalytic activity/Vol] 29 U/L 13-56 [facility] CO2 [Moles/Vol] 25.0 mmol/L 21.0-32.0 [facility] Globulin (S) [Mass/Vol] 3.2 g/dL 2.2-4.2 [facility] Urea nitrogen/Creatinine [Mass ratio] 20.8 mg/mg 10-20 [facility] No Panel InformationOrdered By: Danielle Paige on 11-02-2023 Estimated GFR (MDRD) Amer 68 mL/min >60 [facility] Comment on above: GFR Calc Estimated GFR (MDRD) Non-Af Amer 56 mL/min >60 [facility] Comment on above: Non- GFR Calc Serum or plasma calcium valeri urement (mass/volume)Ordered By: Danielle Paige on 11-02-2023 Calcium [Mass/Vol] 8.6 mg/dL 8.5-10.[address] [facility] Serum or plasma creatinine m easurement (mass/volume)Ordered By: Danielle Paige on 11-02-2023 Creatinine [Mass/Vol] 1.01 mg/dL 0.55-1.02 [facility] Comment on above: The validity of the calculated GFR & GFRAA in patients over 70 years has not been determined. Clinical correlation is essential. Serum or plasma urea nitroge n measurement (mass/volume)Ordered By: Danielle Paige on 11-02-2023 Urea nitrogen [Mass/Vol] 21 mg/dL 7-18 [facility] Thin prep Papanicolaou smear with manual screeningOrdered By: Danielle Paige on 11-02-2023 Thin prep Papanicolaou smear with manual screening 3.4 g/dL 3.2-5.0 [facility] Thin prep Papanicolaou smear with manual screening 39 U/L 15-37 [facility] Thin prep Papanicolaou smear with manual screening 6 5-15 [facility] Basophil percentageOrdered B y: Danielle Paige on 10-17-2023 Bilirubin [Mass/Vol] 0.40 mg/dL 0.20-1.00 [facility] Comment on above: For patients on eltr ombopag therapy, use of [place] TBIL is not recommended. Chloride [Moles/Vol] 107 mmol/L 98-107 [facility] Glucose [Mass/Vol] 69 mg/dL 74-[address] [facility] Potassium [Moles/Vol] 4.2 mmol/L 3.5-5.1 [facility] Protein [Mass/Vol] 7.0 g/dL 6.4-8.[address] [facility] Sodium [Moles/Vol] 140 mmol/L 136-[address] [facility] Laboratory - Chemistry and C hemistry - challengeOrdered By: Danielle Paige on 10-17-2023 Albumin/Globulin [Mass ratio] 1.2 {ratio} 0.9-2.4 [facility] ALP [Catalytic activity/Vol] 48 U/L 45-117 [facility] ALT [Catalytic activity/Vol] 25 U/L 13-56 [facility] CO2 [Moles/Vol] 26.0 mmol/L 21.0-32.0 [facility] Globulin (S) [Mass/Vol] 3.2 g/dL 2.2-4.2 [facility] Natriuretic peptide B (Bld) [Mass/Vol] 56.6 pg/mL 0-100 [facility] Urea nitrogen/Creatinine [Mass ratio] 17.9 mg/mg 10-20 [facility] No Panel InformationOrdered By: Danielle Paige on 10-17-2023 Estimated GFR (MDRD) Amer 35 mL/min >60 [facility] Comment on above: GFR Calc Estimated GFR (MDRD) Non-Af Amer 29 mL/min >60 [facility] Comment on above: Non- GFR Calc Serum or plasma calcium valeri urement (mass/volume)Ordered By: Danielle Paige on 10-17-2023 Calcium [Mass/Vol] 9.3 mg/dL 8.5-10.[address] [facility] Serum or plasma creatinine m easurement (mass/volume)Ordered By: Danielle Paige on 10-17-2023 Creatinine [Mass/Vol] 1.79 mg/dL 0.55-1.02 [facility] Comment on above: The validity of the calculated GFR & GFRAA in patients over 70 years has not been determined. Clinical correlation is essential. Serum or plasma urea nitroge n measurement (mass/volume)Ordered By: Danielle Paige on 10-17-2023 Urea nitrogen [Mass/Vol] 32 mg/dL 7-18 [facility] Thin prep Papanicolaou smear with manual screeningOrdered By: Danielle Paige on 10-17-2023 Thin prep Papanicolaou smear with manual screening 3.8 g/dL 3.2-5.0 [facility] Thin prep Papanicolaou smear with manual screening 38 U/L 15-37 [facility] Thin prep Papanicolaou smear with manual screening 7 5-15 [facility] CNOVon 10-12-2023 CNOV Office Visit (GYURWP ) -------- MARGIE FULTON ([id number]) 1940 F Date Time Provider Department 10/12/23 11:30 AM VINI MAURER During your visit today, we recorded the following information about you: Blood pressure 120/78 Vini Maurer MD 10/12/2023 1:03 PM Signed Margie Fulton presents today for a intradetrusor Botox injections. Indication: Urinary urgency, Urge incontinence. UNIVERSAL PROTOCOL / SAFETY CHECKLIST Procedure to be Performed: cystoscopy with botox 100 units Sign In: A Moment of CARE was completed. Personnel directly involved with the procedure wore the appropriate PPE (Personal Protective Equipment). Patient/Surrogate Stated/Verified: PATIENT VERIFIED(optional for EMERGENT procedures): Patient name, Date of , Relevant allergies, and The intended procedure Time Out Communication: Intended patient and procedure match the source documents. Consent documented and matches the intended procedure. Sign Out: SIGN OUT (optional for EMERGENT procedures): No specimen collected. All instruments, equipment, possible retained foreign bodies accounted for. PROCEDURE: Indication: Urinary Urgency/Urinary Frequency/Urinary urge incontinence/ Neurogenic bladder/Interstitial Cystitis. The patient understands the RBA of intradetrusor Botox injection, including but not limited to UTI, hematuria, urinary retention (dose dependent), treatment failure and transient weakness (rare). Brief description of procedure: After obtaining written informed consent, a time out was performed. The patient was placed in dorsal lithotomy position, then prepped and draped in the usual sterile fashion. 2% urethral lidocaine jelly was introduced into the urethra and allowed to take analgesic effect. Anesthesia: Intraurethral Lidocaine jelly 6 mL. Video-assisted cystourethroscopy was performed using a 19 Romanian 30 degree cystoscope with saline infusion. The cystoscope was advanced into the bladder. Next, the bladder was evaluated. Bilateral ureteral orifices were identified in normal orthotopic position. The bladder mucosa was evaluated in its entirety. There no bladder masses, stones, lesions or foreign bodies. No obvious etiologies for hematuria or recurrent UTI. Next 100 units of Botox were reconstituted in 10 mL of preservative-free injectable saline and injected in 1 mL aliquots into the detrusor in a grid-like pattern. In all 10 injections were given. A 1 mL normal saline flush was given to ensure all medication was administered. Finally, the cystoscope was removed from the bladder and the urethra evaluated again. The patient tolerated the procedure well and was given an immediate dose of periprocedural antibiotics. There were no complications. Findings: Normal bladder mucosa. No evidence of inflammation, stones, neoplasia, bladder diverticulum, trabeculations, or other bladder abnormalities. The bladder trigone and ureteral orifices were seen and no abnormalities noted. Normal urethra without inflammation, diverticulum, or other abnormality. Complications: none Procedure Summary: Patient tolerated procedure well. Medications: Prophylactic antibiotics Plan: Repeat botox 100 units in 6 months. If she develops worsening CHASE before then she should return PRN. Vini Maurer MD Referring Provider: SAVANA LOYD [[id number]] Allergies As of Date: 10/12/2023 (No Known Allergies) Date Reviewed: 10/12/2023 Reviewed by: Jessie Krishna RN - Fully Assessed Reason for Visit: Procedure [88] Cmt: Cystoscopy Visit Diagnosis:OAB (overactive bladder) [N32.81] Order(s):CYSTOSCOPY WHI [[id number]] Order #: [id number] CYSTOSCOPY WHI [[id number]] Order #: [id number] [] onabotulinum toxin type A 100 Units injection (BOTOX)Disp: Rfl: [] lidocaine urojet 2 % 6 mL topical gel (GLYDO)Disp: Rfl: Prescriptions as of 10/12/2023 - furosemide (LASIX) 20 mg tablet Take 20 mg by mouth once daily. - liothyronine (CYTOMEL) 5 mcg tablet Take 5 mcg by mouth once daily. - fluticasone propion/salmeterol (ADVAIR HFA INHALATION) Inhale 2 Puffs as instructed once daily. - omeprazole magnesium (PRILOSEC ORAL) Take 40 mg by mouth once daily. - rOPINIRole (REQUIP) 1 mg tablet Take 1 mg by mouth daily at bedtime. - simvastatin (ZOCOR) 10 mg tablet Take 10 mg by mouth daily at bedtime. - calcium, elemental, tab Take 1 tablet by mouth twice daily. - multivitamin (MULTIPLE VITAMINS) tablet Take 1 tablet by mouth once daily. - aspirin, enteric coated (ASPIR-81) 81 mg EC tablet Take 1 tablet by mouth once daily. - meloxicam 7.5 mg tablet Take 1 tablet by mouth once daily. 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 Normal [facility] Absolute lymphocyte countOrd ered By: Melvin Mcclelland on 10-04-2023 Lymphocytes Auto (Unsp spec) [#/Vol] 1.43 10*3/uL 0.83-4.51 [facility] Automated lymphocyte count a s percentage of total leukocytesOrdered By: Melvin Krystin on 10-04-2023 Lymphocytes/100 WBC Auto (Unsp spec) 21.2 % 19-41 [facility] Basophil percentageOrdered B y: Fine Krystin on 10-04-2023 Basophils/100 WBC (Bld) 0.7 % 0-1 [facility] Chloride [Moles/Vol] 111 mmol/L 98-107 [facility] Eosinophils/100 WBC (Bld) 2.5 % 0-5 [facility] Glucose [Mass/Vol] 90 mg/dL 74-[address] [facility] Hemoglobin (Bld) [Mass/Vol] 11.4 g/dL 12.0-15.0 [facility] Monocytes/100 WBC (Bld) 8.1 % 0-10 [facility] Neutrophils (Bld) [#/Vol] 4.5 10*3/uL 2.0-7.7 [facility] Neutrophils/100 WBC (Bld) 67.1 % 47-70 [facility] Potassium [Moles/Vol] 4.1 mmol/L 3.5-5.1 [facility] Sodium [Moles/Vol] 142 mmol/L 136-[address] [facility] WBC (Bld) [#/Vol] 6.8 10*3/uL 4.4-11.[address] [facility] Determination of erythrocyte mean corpuscular volume (MCV)Ordered By: Melvin Mcclelland on 10-04-2023 MCV (RBC) [Entitic vol] 96.7 fL 81-99 [facility] Erythrocyte distribution wid th ratioOrdered By: [facility] on 10-04-2023 Erythrocyte distribution width (RBC) [Ratio] 14.5 % 11.6-14.6 [facility] Erythrocyte distribution wid th standard deviationOrdered By: Melvin Mcclelland on 10-04-2023 Erythrocyte distribution width (RBC) [Entitic vol] 51.5 fL 35.1-43.9 [facility] Hematocrit Auto (Bld) [Volum e fraction]Ordered By: Melvin Krystin on 10-04-2023 Hematocrit (Bld) [Volume fraction] 35.4 % 37-47 [facility] Immature granulocytes/100 WB C Auto (Bld)Ordered By: Melvin Krystin on 10-04-2023 Immature granulocytes/100 WBC (Bld) 0.400 % 0.0-0.9 [facility] Comment on above: IG% - Immature Granu locytes (promyelocytes, myelocytes and metamyelocytes) > 1% indicates that a LEFT SHIFT is Present. Laboratory - Chemistry and C hemistry - challengeOrdered By: Melvin Krystin on 10-04-2023 CO2 [Moles/Vol] 25.0 mmol/L 21.0-32.0 [facility] Natriuretic peptide B (Bld) [Mass/Vol] 106.0 pg/mL 0-100 [facility] Urea nitrogen/Creatinine [Mass ratio] 25.2 mg/mg 10-20 [facility] Laboratory - Hematology and Cell countsOrdered By: Melvin Mcclelland on 10-04-2023 MCH (RBC) [Entitic mass] 31.1 pg 27.0-32.0 [facility] MCHC (RBC) [Mass/Vol] 32.2 g/dL 32-36 [facility] Nucleated RBC/100 WBC (Bld) [Ratio] 0 % 0-5 [facility] Platelet mean volume (Bld) [Entitic vol] 9.6 fL 6.2-12.0 [facility] Platelets (Bld) [#/Vol] 285 10*3/uL 150-450 [facility] No Panel InformationOrdered By: Melvin Mcclelland on 10-04-2023 Estimated GFR (MDRD) Amer 76 mL/min >60 [facility] Comment on above: GFR Calc Estimated GFR (MDRD) Non-Af Amer 63 mL/min >60 [facility] Comment on above: Non- GFR Calc RBC Auto (Bld) [#/Vol]Ordere d By: Melvin Krystin on 10-04-2023 RBC (Bld) [#/Vol] 3.66 10*6/uL 4.2-5.4 [facility] Serum or plasma calcium valeri urement (mass/volume)Ordered By: Melvin Mcclelland on 10-04-2023 Calcium [Mass/Vol] 8.9 mg/dL 8.5-10.[address] [facility] Serum or plasma creatinine m easurement (mass/volume)Ordered By: Melvin Mcclelland on 10-04-2023 Creatinine [Mass/Vol] 0.91 mg/dL 0.55-1.02 [facility] Comment on above: The validity of the calculated GFR & GFRAA in patients over 70 years has not been determined. Clinical correlation is essential. Serum or plasma thyroid stim ulating hormone (TSH) measurement (units/volume)[facility]: [facility] TSH Qn 2.72 uIU/mL 0.358-3.74 [facility] Serum or plasma urea nitroge n measurement (mass/volume)Ordered By: Melvin Krystin on 10-04-2023 Urea nitrogen [Mass/Vol] 23 mg/dL 7-18 [facility] Thin prep Papanicolaou smear with manual screeningOrdered By: [facility] on 10-04-2023 Thin prep Papanicolaou smear with manual screening 6 5-15 [facility] CNPNon 09-11-2023 CNPN Telephone (RINKU) -------- MARGIE FULTON ([id number]) 1940 F Date Time Provider Department 09/11/23 MONI HUSAIN During your visit today, we recorded the following information about you: Marline Yi, RN 09/11/2023 9:06 AM Signed Botox 100 units 09/11 at [facility] 5th injection Previous injections: 03/09/23, 09/07/22, 03/02/22, 09/01/21, 02/24/21 Reviewed insurance in [employer] - confirmed it is the same as what we have in [facility]. Need Cysto and Botox CAM orders signed. Sending to heavy forging machine operator to sign pended orders. Marline Yi RN September 11, 2023 9:06 AM RAMY 03/09/23: Reason for Appointment 1. 100U 2. Botox Procedure Assessments 1. Overactive bladder - N32.81 (Primary) Procedures Intravesical Botox Injection Procedure Note The patient was consented for the procedure and all of her questions were answered. The patient was placed in dorsal lithotomy position and prepped and draped in sterile fashion. 100 units of bot ox was injected in .5 cc aliquots divided 10 cc of normal saline used to reconstitute the botox) into the Detrusor muscle while using a flexible cystoscope and an Injetak nee dle. All 20 sites were injected just superior to the trigone. The patient tolerated the procedure well. I personally performed the entire procedure. Procedure Codes 71222 CYSTOSCOPY CHEMODENERVATION J0585 BOTULINUM TOXIN TYPE A PER UNIT [facility] 0023 1145 01 BOTOX EXP 2025 LOT [id number], Units: 100.00 , Modifiers: JZ Follow Up 6 Months (Reason: Botox Injection,100 units): Bekah Hidalgo 09/11/2023 9:09 AM Signed Pt r/s'ed for 10/11 w/ Oxana. Scheduled as Established b/c no order to schedule as Botox. Will update once order in. Thanks. Marline Yi RN 09/11/2023 9:31 AM Signed Botox approved NPCR. Updated sticky note. Blood thinners: Asa 81 mg Ppx abx: Will need Marline Yi RN September 11, 2023 9:30 AM Savana Loyd APRN.RUPINDER 09/19/2023 12:12 PM Signed Bactrim rx sent. HORACIO Ponce Jaime L, APRN.CNP 09/19/2023 12:12 PM Signed Addended by: SAVANA LOYD on: 09/19/2023 12:12 PM Modules accepted: Orders Marline Yi RN 09/20/2023 9:56 AM Signed Botox 10/11 with Oxana Blood thinners: Asa 81 mg Ppx abx: Bactrim sent to [facility] in [place] 09/18 Called pt and left detailed VM regarding ppx abx and asa 81 mg. Asked to call office back with any issues or is she is on other blood thinners. Marline Yi RN September 20, 2023 9:56 AM Allergies As of Date: 09/11/2023 (No Known Allergies) Date Reviewed: 03/28/2019 Reviewed by: iKka Thomas (Rn), RN - Fully Assessed Reason for Visit: Care Coordination [3497] Cmt: Botox Primary Visit Diagnosis:OAB (overactive bladder) [N32.81] Other Visit Diagnosis:Prophylactic antibiotic [Z79.2] Order(s):CYSTOSCOPY [facility] [[id number]] Order #: [id number] FUTURE onabotulinum toxin type A 100 Units injection (BOTOX)Disp: Rfl: sulfamethoxazole-trimeth oprim (BACTRIM DS) 800-160 mg per tabletTake 1 tablet by mouth two times a day for 3 days. Start day before procedure.Disp: 6 tabletRfl: 0 Prescriptions as of 09/20/2023 - sulfamethoxazole-trimeth oprim (BACTRIM DS) 800-160 mg per tablet Take 1 tablet by mouth two times a day for 3 days. Start day before procedure. - omeprazole magnesium (PRILOSEC ORAL) Take 40 mg by mouth once daily. - rOPINIRole (REQUIP) 1 mg tablet Take 1 mg by mouth daily at bedtime. - simvastatin (ZOCOR) 10 mg tablet Take 10 mg by mouth daily at bedtime. - calcium, elemental, tab Take 1 tablet by mouth twice daily. - multivitamin (MULTIPLE VITAMINS) tablet Take 1 tablet by mouth once daily. - aspirin, enteric coated (ASPIR-81) 81 mg EC tablet Take 1 tablet by mouth once daily. - meloxicam 7.5 mg tablet Take 1 tablet by mouth once daily. Facility-Administered Medications as of 09/20/2023 - onabotulinum toxin type A 100 Units injection (BOTOX) Problem List As Of Date 09/11/2023 Noted Resolved Primary osteoarthritis of first carpometacarpal*03/14/20 16 Palmar wrist ganglion [M67.439] 03/14/2016 Prescriptions ordered this encounter Disp Refills Start End ONABOTULINUMTOXINA 100 UNIT SOLUTION* 09/11/2023 10/11/2023 Route: INTRAMUSCULA SULFAMETHOXAZOLE 800 MG-TRIMETHOPRIM* 6 ta* 0 09/19/2023 09/22/2023 Route: ORAL Sig: Take 1 tablet by mouth two times a day for 3 days. Start day before procedure. Encounter Status:Closed by SAVANA LOYD on 09/11/23 Normal [facility] Absolute lymphocyte countOrd ered By: Daniellekenny Paige on 05-05-2023 Lymphocytes Auto (Unsp spec) [#/Vol] 1.55 10*3/uL 0.83-4.51 [facility] Basophil percentageOrdered B y: Danielle Paige on 05-05-2023 Basophils/100 WBC (Bld) 0.8 % 0-1 [facility] Bilirubin [Mass/Vol] 0.30 mg/dL 0.20-1.00 [facility] Comment on above: For patients on eltr ombopag therapy, use of Dimension [place] TBIL is not recommended. Chloride [Moles/Vol] 108 mmol/L 98-107 [facility] Eosinophils/100 WBC (Bld) 3.5 % 0-5 [facility] Glucose [Mass/Vol] 73 mg/dL 74-[address] [facility] Neutrophils (Bld) [#/Vol] 3.5 10*3/uL 2.0-7.7 [facility] Neutrophils/100 WBC (Bld) 58.6 % 47-70 [facility] Potassium [Moles/Vol] 3.7 mmol/L 3.5-5.1 [facility] Protein [Mass/Vol] 7.1 g/dL 6.4-8.[address] [facility] Sodium [Moles/Vol] 140 mmol/L 136-[address] [facility] WBC (Bld) [#/Vol] 6.0 10*3/uL 4.4-11.[address] [facility] Blood erythrocytes count (nu mber/volume)Ordered By: Danielle Paige on 05-05-2023 RBC (Bld) [#/Vol] 3.82 10*6/uL 4.2-5.4 [facility] Blood hemoglobin measurement (mass/volume)Ordered By: Danielle Paige on 05-05-2023 Hemoglobin (Bld) [Mass/Vol] 11.9 g/dL 12.0-15.0 [facility] Blood lymphocytes/100 leukoc ytesOrdered By: Danielle Paige on 05-05-2023 Lymphocytes/100 WBC (Bld) 26.0 % 19-41 [facility] Blood monocytes/100 leukocyt esOrdered By: Danielle Paige on 05-05-2023 Monocytes/100 WBC (Bld) 10.4 % 0-10 [facility] Blood platelet mean volumeOr dered By: Danielle Paige on 05-05-2023 Platelet mean volume (Bld) [Entitic vol] 9.5 fL 6.2-12.0 [facility] Determination of erythrocyte mean corpuscular volume (MCV)Ordered By: Danielle Paige on 05-05-2023 MCV (RBC) [Entitic vol] 99.7 fL 81-99 [facility] Hematocrit Auto (Bld) [Volum e fraction]Ordered By: Danielle Paige on 05-05-2023 Hematocrit (Bld) [Volume fraction] 38.1 % 37-47 [facility] - Chemistry and C hemistry - challengeOrdered By: Danielle Paige on 05-05-2023 ALP [Catalytic activity/Vol] 56 U/L 45-117 [facility] ALT [Catalytic activity/Vol] 38 U/L 13-56 [facility] CO2 [Moles/Vol] 23.0 mmol/L 21.0-32.0 [facility] Free T4 [Mass/Vol] 1.03 ng/dL 0.76-1.[address] [facility] Globulin (S) [Mass/Vol] 3.7 g/dL 2.2-4.2 [facility] Urea nitrogen/Creatinine [Mass ratio] 23.6 mg/mg 10 [facility] - Hematology and Cell countsOrdered By: Danielle Paige on 05-05-2023 Erythrocyte distribution width (RBC) [Entitic vol] 51.8 fL 35.1-43.9 [facility] Erythrocyte distribution width (RBC) [Ratio] 14.1 % 11.6-14.6 [facility] Immature granulocytes/100 WBC (Bld) 0.700 % 0.0-0.9 [facility] Comment on above: IG% - Immature Granu locytes (promyelocytes, myelocytes and metamyelocytes) > 1% indicates that a LEFT SHIFT is Present. MCH (RBC) [Entitic mass] 31.2 pg 27.0-32.0 [facility] Nucleated RBC/100 WBC (Bld) [Ratio] 0 % 0-5 [facility] MCHC Auto (RBC) [Mass/Vol]Or dered By: Danielle Paige on 05-05-2023 MCHC (RBC) [Mass/Vol] 31.2 g/dL 32-36 [facility] No Panel InformationOrdered By: Danielle Paige on 05-05-2023 Estimated GFR (MDRD) Amer 61 mL/min >60 [facility] Comment on above: GFR Calc Estimated GFR (MDRD) Non-Af Amer 51 mL/min >60 [facility] Comment on above: Non- GFR Calc Free Triiodothyronine (T3) pg/dL 2.7 pg/mL 2.18-3.98 [facility] Thyroid Stimulating Hormone (TSH) 2.83 uIU/mL 0.358-3.74 [facility] Platelets bldOrdered By: Marnie Paige on 05-05-2023 Platelets (Bld) [#/Vol] 346 10*3/uL 150-450 [facility] Serum or plasma albumin valeri urement (mass/volume)Ordered By: Danielle Paige on 05-05-2023 Albumin [Mass/Vol] 3.4 g/dL 3.2-5.[address] [facility] Serum or plasma albumin/glob ulin mass ratioOrdered By: Danielle Paige on 05-05-2023 Albumin/Globulin [Mass ratio] 0.9 {ratio} 0.9-2.4 [facility] Serum or plasma calcium valeri urement (mass/volume)Ordered By: Danielle Paige on 05-05-2023 Calcium [Mass/Vol] 9.2 mg/dL 8.5-10.[address] [facility] Serum or plasma creatinine m easurement (mass/volume)Ordered By: Danielle Paige on 05-05-2023 Creatinine [Mass/Vol] 1.10 mg/dL 0.55-1.02 [facility] Comment on above: The validity of the calculated GFR & GFRAA in patients over 70 years has not been determined. Clinical correlation is essential. Serum or plasma urea nitroge n measurement (mass/volume)Ordered By: Danielle Paige on 05-05-2023 Urea nitrogen [Mass/Vol] 26 mg/dL 7-18 [facility] Thin prep Papanicolaou smear with manual screeningOrdered By: Danielle Paige on 05-05-2023 Thin prep Papanicolaou smear with manual screening 49 U/L 15-37 [facility] Thin prep Papanicolaou smear with manual screening 9 5-15 [facility] Absolute lymphocyte countOrd ered By: Danielle Paige on 03-10-2023 Lymphocytes Auto (Unsp spec) [#/Vol] 1.37 10*3/uL 0.83-4.51 [facility] Basophil percentageOrdered B y: Danielle Paige on 03-10-2023 Basophils/100 WBC (Bld) 0.9 % 0-1 [facility] Bilirubin [Mass/Vol] 0.30 mg/dL 0.20-1.00 [facility] Comment on above: For patients on eltr ombopag therapy, use of Dimension [place] TBIL is not recommended. Chloride [Moles/Vol] 105 mmol/L 98-107 [facility] Eosinophils/100 WBC (Bld) 5.1 % 0-5 [facility] Glucose [Mass/Vol] 82 mg/dL 74-[address] [facility] Neutrophils (Bld) [#/Vol] 3.4 10*3/uL 2.0-7.7 [facility] Neutrophils/100 WBC (Bld) 60.4 % 47-70 [facility] Potassium [Moles/Vol] 4.2 mmol/L 3.5-5.1 [facility] Protein [Mass/Vol] 6.6 g/dL 6.4-8.[address] [facility] Sodium [Moles/Vol] 139 mmol/L 136-145 [facility] WBC (Bld) [#/Vol] 5.7 10*3/uL 4.4-11.[address] [facility] Blood erythrocytes count (nu mber/volume)Ordered By: Danielle Paige on 03-10-2023 RBC (Bld) [#/Vol] 3.65 10*6/uL 4.2-5.4 [facility] Blood hemoglobin measurement (mass/volume)Ordered By: Danielle Paige on 03-10-2023 Hemoglobin (Bld) [Mass/Vol] 11.5 g/dL 12.0-15.0 [facility] Blood lymphocytes/100 leukoc ytesOrdered By: Danielle Paige on 03-10-2023 Lymphocytes/100 WBC (Bld) 24.1 % 19-41 [facility] Blood monocytes/100 leukocyt esOrdered By: Danielle Paige on 03-10-2023 Monocytes/100 WBC (Bld) 9.0 % 0-10 [facility] Blood platelet mean volumeOr dered By: Danielle Paige on 03-10-2023 Platelet mean volume (Bld) [Entitic vol] 9.1 fL 6.2-12.0 [facility] Determination of erythrocyte mean corpuscular volume (MCV)Ordered By: Danielle Paige on 03-10-2023 MCV (RBC) [Entitic vol] 100.3 fL 81-99 [facility] Hematocrit Auto (Bld) [Volum e fraction]Ordered By: Danielle Paige on 03-10-2023 Hematocrit (Bld) [Volume fraction] 36.6 % 37-47 [facility] - Chemistry and C hemistry - challengeOrdered By: Danielle Paige on 03-10-2023 ALP [Catalytic activity/Vol] 58 U/L 45-117 [facility] ALT [Catalytic activity/Vol] 46 U/L 13-56 [facility] CO2 [Moles/Vol] 26.0 mmol/L 21.0-32.0 [facility] Cobalamin (Vitamin B12) [Mass/Vol] 1747 pg/mL 211-911 [facility] Free T4 [Mass/Vol] 1.14 ng/dL 0.76-1.[address] [facility] Globulin (S) [Mass/Vol] 3.0 g/dL 2.2-4.2 [facility] Urea nitrogen/Creatinine [Mass ratio] 21.0 mg/mg 10-20 [facility] - Hematology and Cell countsOrdered By: Danielle Paige on 03-10-2023 Erythrocyte distribution width (RBC) [Entitic vol] 50.1 fL 35.1-43.9 [facility] Erythrocyte distribution width (RBC) [Ratio] 13.6 % 11.6-14.6 [facility] Immature granulocytes/100 WBC (Bld) 0.500 % 0.0-0.9 [facility] Comment on above: IG% - Immature Granu locytes (promyelocytes, myelocytes and metamyelocytes) > 1% indicates that a LEFT SHIFT is Present. MCH (RBC) [Entitic mass] 31.5 pg 27.0-32.0 [facility] Nucleated RBC/100 WBC (Bld) [Ratio] 0 % 0-5 [facility] MCHC Auto (RBC) [Mass/Vol]Or dered By: Danielle Paige on 03-10-2023 MCHC (RBC) [Mass/Vol] 31.4 g/dL 32-36 [facility] No Panel InformationOrdered By: Danielle Paige on 03-10-2023 Estimated GFR (MDRD) Amer 69 mL/min >60 [facility] Comment on above: GFR Calc Estimated GFR (MDRD) Non-Af Amer 57 mL/min >60 [facility] Comment on above: Non- GFR Calc Free Triiodothyronine (T3) pg/dL 1.7 pg/mL 2.18-3.98 [facility] Thyroid Stimulating Hormone (TSH) 2.78 uIU/mL 0.358-3.74 [facility] Platelets bldOrdered By: Marnie Paige on 03-10-2023 Platelets (Bld) [#/Vol] 289 10*3/uL 150-450 [facility] Serum or plasma albumin valeri urement (mass/volume)Ordered By: Danielle Paige on 03-10-2023 Albumin [Mass/Vol] 3.6 g/dL 3.2-5.[address] [facility] Serum or plasma albumin/glob ulin mass ratioOrdered By: Danielle Paige on 03-10-2023 Albumin/Globulin [Mass ratio] 1.2 {ratio} 0.9-2.4 [facility] Serum or plasma calcium valeri urement (mass/volume)Ordered By: Danielle Paige on 03-10-2023 Calcium [Mass/Vol] 9.0 mg/dL 8.5-10.[address] [facility] Serum or plasma creatinine m easurement (mass/volume)Ordered By: Danielle Samaniegogiovanni on 03-10-2023 Creatinine [Mass/Vol] 1.00 mg/dL 0.55-1.02 [facility] Comment on above: The validity of the calculated GFR & GFRAA in patients over 70 years has not been determined. Clinical correlation is essential. Serum or plasma urea nitroge n measurement (mass/volume)Ordered By: Danielle Paige on 03-10-2023 Urea nitrogen [Mass/Vol] 21 mg/dL 7-18 [facility] Thin prep Papanicolaou smear with manual screeningOrdered By: Danielle Paige on 03-10-2023 Thin prep Papanicolaou smear with manual screening 49 U/L 15-37 [facility] Thin prep Papanicolaou smear with manual screening 8 5-15 [facility] Absolute lymphocyte countOrd ered By: Danielle Paige on 01-26-2023 Lymphocytes Auto (Unsp spec) [#/Vol] 1.25 10*3/uL 0.83-4.51 [facility] Basophil percentageOrdered B y: Danielle Paige on 01-26-2023 Basophils/100 WBC (Bld) 0.6 % 0-1 [facility] Bilirubin [Mass/Vol] 0.30 mg/dL 0.20-1.00 [facility] Comment on above: For patients on eltr ombopag therapy, use of Dimension [place] TBIL is not recommended. Chloride [Moles/Vol] 106 mmol/L 98-107 [facility] Eosinophils/100 WBC (Bld) 4.1 % 0-5 [facility] Glucose [Mass/Vol] 87 mg/dL 74-[address] [facility] Neutrophils (Bld) [#/Vol] 4.8 10*3/uL 2.0-7.7 [facility] Neutrophils/100 WBC (Bld) 68.7 % 47-70 [facility] Potassium [Moles/Vol] 5.0 mmol/L 3.5-5.1 [facility] Protein [Mass/Vol] 6.9 g/dL 6.4-8.[address] [facility] Sodium [Moles/Vol] 138 mmol/L 136-[address] [facility] WBC (Bld) [#/Vol] 7.1 10*3/uL 4.4-11.[address] [facility] Blood erythrocytes count (nu mber/volume)Ordered By: Danielle Paige on 01-26-2023 RBC (Bld) [#/Vol] 3.55 10*6/uL 4.2-5.4 [facility] Blood hemoglobin measurement (mass/volume)Ordered By: Danielle Paige on 01-26-2023 Hemoglobin (Bld) [Mass/Vol] 11.4 g/dL 12.0-15.0 [facility] Blood lymphocytes/100 leukoc ytesOrdered By: Danielle Paige on 01-26-2023 Lymphocytes/100 WBC (Bld) 17.7 % 19-41 [facility] Blood monocytes/100 leukocyt esOrdered By: Danielle Paige on 01-26-2023 Monocytes/100 WBC (Bld) 8.5 % 0-10 [facility] Blood platelet mean volumeOr dered By: Danielle Paieg on 01-26-2023 Platelet mean volume (Bld) [Entitic vol] 9.2 fL 6.2-12.0 [facility] Determination of erythrocyte mean corpuscular volume (MCV)Ordered By: Danielle Paige on 01-26-2023 MCV (RBC) [Entitic vol] 100.8 fL 81-99 [facility] Hematocrit Auto (Bld) [Volum e fraction]Ordered By: Danielle Paige on 01-26-2023 Hematocrit (Bld) [Volume fraction] 35.8 % 37-47 [facility] Iron measurement (mass/mass) Ordered By: Danielle Paige on 01-26-2023 Iron (Unsp spec) [Mass/Mass] 60 ug/dL 50-170 [facility] - Chemistry and C hemistry - challengeOrdered By: Danielle Paige on 01-26-2023 ALP [Catalytic activity/Vol] 55 U/L 45-117 [facility] ALT [Catalytic activity/Vol] 44 U/L 13-56 [facility] CO2 [Moles/Vol] 24.0 mmol/L 21.0-32.0 [facility] Cobalamin (Vitamin B12) [Mass/Vol] 586 pg/mL 211-911 [facility] Free T4 [Mass/Vol] 1.09 ng/dL 0.76-1.[address] [facility] Globulin (S) [Mass/Vol] 3.4 g/dL 2.2-4.2 [facility] Magnesium [Mass/Vol] 2.2 mg/dL 1.6-2.6 [facility] Urea nitrogen/Creatinine [Mass ratio] 21.3 mg/mg 10-20 [facility] - Hematology and Cell countsOrdered By: Danielle Paige on 01-26-2023 Erythrocyte distribution width (RBC) [Entitic vol] 53.2 fL 35.1-43.9 [facility] Erythrocyte distribution width (RBC) [Ratio] 14.1 % 11.6-14.6 [facility] Immature granulocytes/100 WBC (Bld) 0.400 % 0.0-0.9 [facility] Comment on above: IG% - Immature Granu locytes (promyelocytes, myelocytes and metamyelocytes) > 1% indicates that a LEFT SHIFT is Present. MCH (RBC) [Entitic mass] 32.1 pg 27.0-32.0 [facility] Nucleated RBC/100 WBC (Bld) [Ratio] 0 % 0-5 [facility] MCHC Auto (RBC) [Mass/Vol]Or dered By: Danielle Paige on 01-26-2023 MCHC (RBC) [Mass/Vol] 31.8 g/dL 32-36 [facility] No Panel InformationOrdered By: Danielle Paige on 01-26-2023 Estimated GFR (MDRD) Amer 63 mL/min >60 [facility] Comment on above: GFR Calc Estimated GFR (MDRD) Non-Af Amer 52 mL/min >60 [facility] Comment on above: Non- GFR Calc Free Triiodothyronine (T3) pg/dL 1.7 pg/mL 2.18-3.98 [facility] Thyroid Stimulating Hormone (TSH) 2.53 uIU/mL 0.358-3.74 [facility] Platelets bldOrdered By: Marnie Paige on 01-26-2023 Platelets (Bld) [#/Vol] 323 10*3/uL 150-450 [facility] Serum or plasma albumin valeri urement (mass/volume)Ordered By: Danielle Paige on 01-26-2023 Albumin [Mass/Vol] 3.5 g/dL 3.2-5.[address] [facility] Serum or plasma albumin/glob ulin mass ratioOrdered By: Danielle Paige on 01-26-2023 Albumin/Globulin [Mass ratio] 1.0 {ratio} 0.9-2.4 [facility] Serum or plasma calcium valeri urement (mass/volume)Ordered By: Danielle Paige on 01-26-2023 Calcium [Mass/Vol] 9.0 mg/dL 8.5-10.[address] [facility] Serum or plasma creatinine m easurement (mass/volume)Ordered By: Danielle Paige on 01-26-2023 Creatinine [Mass/Vol] 1.08 mg/dL 0.55-1.02 [facility] Comment on above: The validity of the calculated GFR & GFRAA in patients over 70 years has not been determined. Clinical correlation is essential. Serum or plasma urea nitroge n measurement (mass/volume)Ordered By: Danielle Paige on 01-26-2023 Urea nitrogen [Mass/Vol] 23 mg/dL 7-18 [facility] Thin prep Papanicolaou smear with manual screeningOrdered By: Danielle Paige on 01-26-2023 Thin prep Papanicolaou smear with manual screening 44 U/L 15-37 [facility] Thin prep Papanicolaou smear with manual screening 8 5-15 [facility] Culture, urineOrdered By: Dr Ramona Paige on 09-30-2022 Bacteria identified Cx Nom (U) Proteus mirabilis [facility] Absolute lymphocyte countOrd ered By: Dr. Paige on 08-24-2022 Lymphocytes Auto (Unsp spec) [#/Vol] 1.59 10*3/uL 0.83-4.51 [facility] Basophil percentageOrdered B y: Dr. Paige on 08-24-2022 Basophils/100 WBC (Bld) 0.5 % 0-1 [facility] Bilirubin [Mass/Vol] 0.30 mg/dL 0.20-1.00 [facility] Comment on above: For patients on eltr ombopag therapy, use of Dimension [place] TBIL is not recommended. Chloride [Moles/Vol] 106 mmol/L 98-107 [facility] Eosinophils/100 WBC (Bld) 5.5 % 0-5 [facility] Glucose [Mass/Vol] 97 mg/dL 74-[address] [facility] Neutrophils (Bld) [#/Vol] 5.2 10*3/uL 2.0-7.7 [facility] Neutrophils/100 WBC (Bld) 66.5 % 47-70 [facility] Potassium [Moles/Vol] 4.4 mmol/L 3.5-5.1 [facility] Protein [Mass/Vol] 7.4 g/dL 6.4-8.[address] [facility] Sodium [Moles/Vol] 139 mmol/L 136-[address] [facility] WBC (Bld) [#/Vol] 7.8 10*3/uL 4.4-11.[address] [facility] Blood erythrocytes count (nu mber/volume)Ordered By: Dr. Paige on 08-24-2022 RBC (Bld) [#/Vol] 4.05 10*6/uL 4.2-5.4 [facility] Blood hemoglobin measurement (mass/volume)Ordered By: Dr. Paige on 08-24-2022 Hemoglobin (Bld) [Mass/Vol] 12.3 g/dL 12.0-15.0 [facility] Blood lymphocytes/100 leukoc ytesOrdered By: Dr. Paige on 08-24-2022 Lymphocytes/100 WBC (Bld) 20.5 % 19-41 [facility] Blood monocytes/100 leukocyt esOrdered By: Dr. Paige on 08-24-2022 Monocytes/100 WBC (Bld) 6.7 % 0-10 [facility] Blood platelet mean volumeOr dered By: Dr. Paige on 08-24-2022 Platelet mean volume (Bld) [Entitic vol] 10.3 fL 6.2-12.0 [facility] Determination of erythrocyte mean corpuscular volume (MCV)Ordered By: Dr. Paige on 08-24-2022 MCV (RBC) [Entitic vol] 98.0 fL 81-99 [facility] Hematocrit Auto (Bld) [Volum e fraction]Ordered By: Dr. Paige on 08-24-2022 Hematocrit (Bld) [Volume fraction] 39.7 % 37-47 [facility] - Chemistry and C hemistry - challengeOrdered By: Dr. Paige on 08-24-2022 ALP [Catalytic activity/Vol] 64 U/L 45-117 [facility] ALT [Catalytic activity/Vol] 22 U/L 13-56 [facility] CO2 [Moles/Vol] 27.0 mmol/L 21.0-32.0 [facility] Globulin (S) [Mass/Vol] 4.1 g/dL 2.2-4.2 [facility] Natriuretic peptide B (Bld) [Mass/Vol] 53.8 pg/mL 0-100 [facility] Urea nitrogen/Creatinine [Mass ratio] 28.6 mg/mg 10-20 [facility] - Hematology and Cell countsOrdered By: Dr. Paige on 08-24-2022 Erythrocyte distribution width (RBC) [Entitic vol] 49.8 fL 35.1-43.9 [facility] Erythrocyte distribution width (RBC) [Ratio] 13.7 % 11.6-14.6 [facility] Immature granulocytes/100 WBC (Bld) 0.300 % 0.0-0.9 [facility] Comment on above: IG% - Immature Granu locytes (promyelocytes, myelocytes and metamyelocytes) > 1% indicates that a LEFT SHIFT is Present. MCH (RBC) [Entitic mass] 30.4 pg 27.0-32.0 [facility] Nucleated RBC/100 WBC (Bld) [Ratio] 0 % 0-5 [facility] MCHC Auto (RBC) [Mass/Vol]Or dered By: Dr. Paige on 08-24-2022 MCHC (RBC) [Mass/Vol] 31.0 g/dL 32-36 [facility] No Panel InformationOrdered By: Dr. Paige on 08-24-2022 C-Reactive Protein High Sensitivity 67.30 mg/L <3.00 [facility] Comment on above: Low Relative Risk of CVD <1.0 mg/L Average Relative Risk of CVD 1.0 - 3.0 mg/L High Relative Risk of CVD >3.0 mg/L Estimated GFR (MDRD) Amer 93 mL/min >60 [facility] Comment on above: GFR Calc Estimated GFR (MDRD) Non-Af Amer 77 mL/min >60 [facility] Comment on above: Non- GFR Calc Troponin I High Sensitivity 4 pg/mL 3.0-54.0 [facility] Comment on above: Please Note: New Muna t Units and Gender Specific Reference Ranges. For more information see Policy Stat Procedure [place] High Sensitivity Troponin (TNIH) and attachments. Platelets bldOrdered By: Dr. Paige on 08-24-2022 Platelets (Bld) [#/Vol] 296 10*3/uL 150-450 [facility] Serum or plasma albumin valeri urement (mass/volume)Ordered By: Dr. Paige on 08-24-2022 Albumin [Mass/Vol] 3.3 g/dL 3.2-5.[address] [facility] Serum or plasma albumin/glob ulin mass ratioOrdered By: Dr. Paige on 08-24-2022 Albumin/Globulin [Mass ratio] 0.8 {ratio} 0.9-2.4 [facility] Serum or plasma calcium valeri urement (mass/volume)Ordered By: Dr. Paige on 08-24-2022 Calcium [Mass/Vol] 8.6 mg/dL 8.5-10.[address] [facility] Serum or plasma creatinine m easurement (mass/volume)Ordered By: Dr. Paige on 08-24-2022 Creatinine [Mass/Vol] 0.77 mg/dL 0.55-1.02 [facility] Comment on above: The validity of the calculated GFR & GFRAA in patients over 70 years has not been determined. Clinical correlation is essential. Serum or plasma urea nitroge n measurement (mass/volume)Ordered By: Dr. Paige on 08-24-2022 Urea nitrogen [Mass/Vol] 22 mg/dL 7-18 [facility] Thin prep Papanicolaou smear with manual screeningOrdered By: Dr. Paige on 08-24-2022 Thin prep Papanicolaou smear with manual screening 19 U/L 15-37 [facility] Thin prep Papanicolaou smear with manual screening 6 5-15 [facility] Progress Noteon 06-27-2022 Progress Note Per chart patient trinh d lung surgery 11/05/20, patient is undergoing lung cancer surveillance w/Dr. Lon Berrios, [facility] Op Noteon 11-16-2020 Op Note PATIENT: MARGIE FULTON ADMISSION DATE: 11/05/2020 SURGERY DATE: 11/05/2020 DATE OF : 1940 AGE: 80 ADMITTING PHYSICIAN: Rosemarie Mckeon MD ATTENDING PHYSICIAN: Rosemarie Mckeon MD DICTATING PHYSICIAN: Rosemarie Mckeon MD OPERATIVE RECORD Procedure: RIGHT THORACOTOMY, RIGHT UPPER LOBECTOMY, MEDIASTINAL LYMPH NODE SAMPLING (STATIONS 7, 8, 9, 10). Preoperative Diagnosis: Right upper lobe lung mass. Postprocedure Diagnosis: Right upper lobe lung mass. Anesthesia: General endotracheal anesthesia. Speech And Language Specialist: Dr. Rajni Hwang. Clinical History: The patient is a 80-year-old female with a PET positive right upper lobe lung mass of uncertain etiology. The first biopsy that was performed was a CT-guided biopsy which did not elucidated diagnosis. Because our suspicion for malignancy was high, recommendation was made to proceed with surgical resection. The risks, benefits, and alternatives have been discussed prior to this operation and the patient agreed to proceed. Description of Procedure: The patient was taken to the operative suite and placed under general endotracheal anesthesia with a double-lumen endotracheal tube in place with good position confirmed bronchoscopically. Arterial line was placed by Department of Anesthesia. The patient was placed in a lateral decubitus position, preparation for right thoracotomy. A right posterolateral thoracotomy that was muscle sparing in nature was performed and access was gained through the fifth intercostal space. Evaluation of the upper lobe revealed a spiculated mass within the right upper lobe that appeared to be consistent with malignancy and we proceeded with the upper lobectomy. This was performed by mobilizing the hilum and identified the pulmonary venous drainage from the upper lobe. We carefully identified the middle lobe drainage and preserved. We then stapled and transected the upper lobe of vein after isolating it. We developed the fissure and identified the pulmonary artery coursing within the fissure and then identified the branches off the main pulmonary artery coursed to the upper lobe. These were all sequentially isolated and stapled and transected using a linear stapler. We then completed all of the parenchymal dissection with a combination of both cautery as well as the linear stapler. The upper lobe bronchus was then managed by stapling and transecting it using a linear stapler. The specimen was sent for pathologic evaluation. We carefully evaluated the staple line to be sure it was intact and then tested under pressure to be sure there was no significant air leak. We then proceeded with mediastinal lymph node sampling and sampled lymph nodes from levels 7, 8, 9, 10 and these were sent to the pathology in separately labeled containers. We then obtained hemostasis. Chest tubes were placed through separate incisions and we proceeded with closure after the lung was seen to expand nicely. We did mobilize the inferior pulmonary ligament as well. We then proceeded with closure. The ribs were reapproximated #2 Vicryl. The overlying tissues closed in multiple layers. The patient procedure well, was awakened, extubated and taken to the recovery in stable condition. [employer] Job ID: [id number] Rosemarie Mckeon MD DOD:11/16/2020 09:03 A PAMELA/primo DOT:11/16/2020 09:35 A Job Number: [id number] Document Number: [id number] cc: Rosemarie Mckeon MD [facility] [address] [address] Normal [facility] Basic Metabolic Panelon 04- Urea nitrogen [Mass/Vol] 14 mg/dL Normal 7-20 [facility] Comment on above: Performed By: #### B MP3M, HEMDF #### [address] Anion gap [Moles/Vol] 3 mmol/L Normal 3-13 [facility] Comment on above: Performed By: #### B MP3M, HEMDF #### [address] CO2 [Moles/Vol] 29 mmol/L Normal 22-30 [facility] Comment on above: Performed By: #### B MP3M, HEMDF #### [address] [address] [place], [place] Creatinine [Mass/Vol] 0.70 mg/dL Normal 0.52-1.25 [facility] Comment on above: Performed By: #### B MP3M, HEMDF #### [address] [address] [place], [place] GFR/1.73 sq M.predicted among blacks MDRD (S/P/Bld) [Vol rate/Area] mL/min/{1.73_m2} Normal >60 [facility] Comment on above: Performed By: #### B MP3M, HEMDF #### [address] [address] [place], [place] GFR/1.73 sq M.predicted among non-blacks MDRD (S/P/Bld) [Vol rate/Area] 82.7 mL/min/{1.73_m2} Normal >60 [facility] Comment on above: Result Comment: KDIG O guidelines provide the following GFR categories: Stage GFR(ml/min/1.73 m2) Terms G1 >=90 Normal or high G2 60-89 Mildly decreased* G3a 45-59 Mildly to moderately decreased G3b 30-44 Moderately to severely decreased G4 15-29 Severely decreased G5 <15 Kidney failure *Relative to young adult level. In the absence of evidence of kidney damage, neither GFR category G1 nor G2 fulfill the criteria for CKD. The CKD-EPI equation is validated in individuals 18 years of age and older. Currently the best equation for estimating glomerular filtration rate (GFR) from serum creatinine in children is the Bedside Sibley equation. It is less accurate in patients with extremes of muscle mass, restriction of dietary protein, ingestion of creatine, extra-renal metabolism of creatinine, or treatment with medications that affect renal tubular creatinine secretion. Performed By: #### B MP3M, HEMDF #### [address] [address] [place], [place] Chloride [Moles/Vol] 105 mmol/L Normal 98-107 [facility] Comment on above: Performed By: #### B MP3M, HEMDF #### [facility] [address] [place], [place] Potassium [Moles/Vol] 4.3 mmol/L Normal 3.5-5.1 [facility] Comment on above: Performed By: #### B MP3M, HEMDF #### [facility] [address] [place], [place] Sodium [Moles/Vol] 136 mmol/L Normal 135-145 [facility] Comment on above: Performed By: #### B MP3M, HEMDF #### [facility] [address] [place], [place] Basic Metabolic PanelOrdered By: Rajni Hwang on 11-09-2020 Calcium [Mass/Vol] 8.8 mg/dL Normal 8.4-10.4 [facility] Work Phone: [phone] Comment on above: Performed By: #### B MP3M, HEMDF #### [address] [address] [address] [place], [place] Glucose [Mass/Vol] 87 mg/dL Normal 70-100 [facility] Work Phone: [phone] Comment on above: Performed By: #### B MP3M, HEMDF #### [address] [address] [address] [place], [place] Basic Metabolic Panel w/ Ref song to MGOrdered By: Rajni Hwang on 11-09-2020 Anion gap [Moles/Vol] 3 mmol/L 3 - 13 mmol/L [facility] Work Phone: Chloride [Moles/Vol] 105 mmol/L 98 - 10 7 mmol/L [facility] Work Phone: CO2 [Moles/Vol] 29 mmol/L 22 - 30 mmol/L [facility] Work Phone: [phone] Creatinine [Mass/Vol] 0.7 mg/dL 0.52 - 1.25 mg/dL [facility] Work Phone: [phone] EGFR IF NonAfrican Ivorian 82.7 mL/min >60 [facility] Work Phone: [phone] Comment on above: KDIGO guidelines pro vide the following GFR categories: Stage GFR(ml/min/1.73 m2) Terms G1 >=90 Normal or high G2 60-89 Mildly decreased* G3a 45-59 Mildly to moderately decreased G3b 30-44 Moderately to severely decreased G4 15-29 Severely decreased G5 <15 Kidney failure *Relative to young adult level. In the absence of evidence of kidney damage, neither GFR category G1 nor G2 fulfill the criteria for CKD. The CKD-EPI equation is validated in individuals 18 years of age and older. Currently the best equation for estimating glomerular filtration rate (GFR) from serum creatinine in children is the Bedside Sibley equation. It is less accurate in patients with extremes of muscle mass, restriction of dietary protein, ingestion of creatine, extra-renal metabolism of creatinine, or treatment with medications that affect renal tubular creatinine secretion. GFR/1.73 sq M.predicted among blacks MDRD (S/P/Bld) [Vol rate/Area] mL/min/{1.73_m2} >60 mL/min [facility] Work Phone: Potassium [Moles/Vol] 4.3 mmol/L 3.5 - 5.1 mmol/L [facility] Work Phone: Sodium [Moles/Vol] 136 mmol/L 135 - 145 mmol/L [facility] Work Phone: Urea nitrogen (BldV) [Mass/Vol] 14 mg/dL 7 - 20 mg/dL [employer] Work Phone: Test Performed by [facility], [address] [place] [id number] [employer] Work Phone: CBC auto differentialOrdered By: Rajni Hwang on 11-09-2020 Absolute Baso # 0.1 10*3/uL 0.0 - 0.2 10*3/uL [employer] Work Phone: Absolute Neut # 3.8 10*3/uL 1.8 - 7.0 10*3/uL [employer] Work Phone: Basophils/100 WBC (Bld) 0.8 % 0.0 - 2.0 % [facility] Work Phone: Eosinophils (Bld) [#/Vol] 0.3 10*3/uL 0.0 - 0.5 10*3/uL [employer] Work Phone: 1 Eosinophils/100 WBC (Bld) 5.3 % 1.0 - 6.0 % [employer] Work Phone: Granulocytes/100 WBC (Bld) 59.1 % 40.0 - 80.0 % [employer] Work Phone: Hematocrit (Bld) [Volume fraction] 35.5 % 35.0 - 47.0 % [employer] Work Phone: Hemoglobin.gastrointest inal spec 1 Ql (Stl) 11.8 g/dL 11.7 - 16.0 g/dL [employer] Work Phone: Interpretation and review of laboratory results Abnormal [employer] Work Phone: Lymphocytes (Bld) [#/Vol] 1.8 10*3/uL 1.0 - 4.3 10*3/uL [employer] Work Phone: Lymphocytes/100 WBC (Bld) 27.9 % 20.0 - 40.0 % [employer] Work Phone: MCH (RBC) [Entitic mass] 32.0 pg 26.0 - 34.0 pg [employer] Work Phone: MCHC (RBC) [Mass/Vol] 33.3 % 32.0 - 36.0 % [employer] Work Phone: MCV (RBC) [Entitic vol] 96.1 fL 79.0 - 98.0 fL [employer] Work Phone: Monocytes (Bld) [#/Vol] 0.4 10*3/uL 0.0 - 0.8 10*3/uL [employer] Work Phone: Monocytes/100 WBC (Bld) 6.9 % 2.0 - 10.0 % [employer] Work Phone: Platelet distribution width (Bld) [Ratio] 13.6 % 11.5 - 14.5 % [employer] Work Phone: Platelet mean volume (Bld) [Entitic vol] 7.9 fL 7.4 - 10.4 fL [employer] Work Phone: [phone] Platelets (Bld) [#/Vol] 218 10*3/uL 140 - 440 10*3/uL [employer] Work Phone: [phone] RBC (Bld) [#/Vol] 3.70 10*6/uL Low 3.80 - 5.2 0 10*6/uL [employer] Work Phone: [phone] WBC (Bld) [#/Vol] 6.4 10*3/uL 3.6 - 10.7 10*3/uL [employer] Work Phone: [phone] Performed by [facility], [address] [place] [id number] [employer] Work Phone: [phone] CR Chest Portableon 11-10-19 21 CR Chest Portable Patient Name: MARGIE FULTON Diagnostic Radiology ACCESSION EXAM DATE/TIME PROCEDURE ORDERING PROVIDER [id number] 11/09/2020 08:12 EDT CR Chest Portable MD HWANG LORNA CPT code 55144 Reason For Exam (CR Chest Portable) s/p R thora Report PORTABLE CHEST CLINICAL INDICATION: Status post thoracentesis. COMPARISON: Yesterday. TECHNIQUE: A single frontal view of thorax was obtained and reviewed. IMPRESSION: 1. Lines/ tubes/ devices: None. 2. Lungs and Pleura: Mild right apical pleural thickening, unchanged. There is slight elevation of the right hemidiaphragm. Minimal left basilar atelectasis, unchanged. No infiltrate or mass. No pneumothorax or pleural effusion. 3. Heart and mediastinum: Normal cardiomediastinal margin. 4. Bones: Thoracic degenerative spondylosis. Inferior cervical plate and screws. Acute, fourth lateral rib fracture is redemonstrated. Report Dictated on Final Dictated: 11/09/2020 7:51 am Dictating Physician: TANI ZAMORA DO, I Signed Date and Time: 11/09/2020 7:53 am Signed by: TANI ZAMORA DO, I Transcribed Date and Time: 11/09/2020 7:51 Normal [facility] ECHO Complete 2D W Doppler W ColorOrdered By: Brian Obregon on 11-09-2020 TRANSTHORACIC ECHOCARDIOGRAM PATIENT: Manjula, STUDY DATE: 11/09/2020 Margie : 1940 AGE: 80 HT/WT: 165.1 cm (65 65.3 kg (143.7 in) lb) GENDER: F BP: 110 / 79 LOCATION: [facility] PATIENT Inpatient main STATUS: *ORDERING PHYSICIAN: * Brian Obregon *READING PHYSICIAN: * Theresa, *TREASURY MANAGER: * Priyanka Schreiber [facility], [place], [facility], [facility] INDICATIONS: Onset A-Fib. CONCLUSIONS SUMMARY: 1. Left ventricle: Systolic function is normal by the biplane method of disks. The estimated ejection fraction is 65%. There are no regional wall motion abnormalities. Left ventricular diastolic function parameters are normal. 2. Right ventricle: The cavity size is mildly dilated. Systolic function is normal. 3. Tricuspid valve: There is mild, 1+ regurgitation. 4. Pericardium, extracardiac: There is no pericardial effusion. 5. Inferior vena cava: The vessel is normal. The IVC collapses by greater than 50% with inspiration. STUDY DATA: Complete transthoracic echocardiogram. Procedure: Image quality was good. M-mode, complete 2D, complete spectral Doppler, and color flow Doppler images were acquired and archived for permanent storage and are available for subsequent review. Study status: Routine. Patient status: Inpatient. FINDINGS LEFT VENTRICLE: The cavity size is normal. Wall thickness is normal. Systolic function is normal by the biplane method of disks. The estimated ejection fraction is 65%. There are no regional wall motion abnormalities. Left ventricular diastolic function parameters are normal. RIGHT VENTRICLE: The cavity size is mildly dilated. Systolic function is normal. Right ventricular systolic pressure is within the normal range. VENTRICULAR SEPTUM: There is no evidence of a ventricular septal defect. LEFT ATRIUM: The atrium is normal in size. RIGHT ATRIUM: The atrium is normal in size. ATRIAL SEPTUM: Color Doppler shows no shunt. MITRAL VALVE: Structurally normal valve. Doppler: There is no significant regurgitation. The peak diastolic gradient is 2 mm Hg. AORTIC VALVE: Structurally normal valve. Trileaflet. Doppler: There is trivial, less than 1+ regurgitation. TRICUSPID VALVE: Structurally normal valve. Doppler: There is mild, 1+ regurgitation. PULMONIC VALVE: Structurally normal valve. Doppler: There is no significant regurgitation. AORTA: The aorta is normal. PULMONARY ARTERY: Main pulmonary artery: Normal. PERICARDIUM: There is no pericardial effusion. SYSTEMIC VEINS: Inferior vena cava: The vessel is normal. The IVC collapses by greater than 50% with inspiration. Measurements Value Reference Ascending aorta ID, A-P, S 3.2 cm --------- Ascending aorta ID/bsa, A-P, S 1.8 cm/m^2 --------- Left ventricle Value Reference LV ID, ED 4.4 cm 3.8 - 5.2 LV ID, ES 2.8 cm 2.2 - 3.5 LV ID/bsa, ED 2.5 cm/m^2 2.3 - 3.1 LV ID/bsa, ES 1.6 cm/m^2 1.3 - 2.1 LV PW thickness, ED 0.9 cm 0.6 - 0.9 LV PW/LV ID ratio, ED 0.21 --------- LV wall mass 136 g 66 - 150 LV wall mass/bsa 78 g/m^2 44 - 88 Stroke volume/bsa, 1-p A2C 17.6 ml/m^2 --------- LV end-diastolic volume, 1-p A4C 67 ml 48 - 140 LV end-systolic volume, 1-p A4C 20 ml 12 - 60 LV end-diastolic volume, 2-p 57 ml 46 - 106 LV end-systolic volume, 2-p 20 ml 14 - 42 LV ejection fraction, 2-p 65 % 54 - 74 LV E/e', lateral 8.8 --------- LV E/e', medial 11.2 --------- LV E/e', average 9.9 --------- Ventricular septum Value Reference IVS thickness, ED (H) 1.0 cm 0.6 - 0.9 LVOT Value Reference LVOT ID, A-P 2.1 cm --------- LVOT mean velocity, S 0.6 m/sec --------- LVO (more content not included)... [facility] Work Phone: Devan, [facility] Incoming Cardiology Results From Merge/Tony - 11/09/2020 12:54 PM EDT TRANSTHORACIC ECHOCARDIOGRAM PATIENT: Manjula, STUDY DATE: 11/09/2020 Margie : 1940 AGE: 80 HT/WT: 165.1 cm (65 65.3 kg (143.7 in) lb) GENDER: F BP: 110 / 79 LOCATION: [facility] PATIENT Inpatient main STATUS: *ORDERING PHYSICIAN: * Brian Obregon *READING PHYSICIAN: * Theresa, *TREASURY MANAGER: El Schreiber [facility], [place], [facility], [facility] INDICATIONS: Onset A-Fib. CONCLUSIONS SUMMARY: 1. Left ventricle: Systolic function is normal by the biplane method of disks. The estimated ejection fraction is 65%. There are no regional wall motion abnormalities. Left ventricular diastolic function parameters are normal. 2. Right ventricle: The cavity size is mildly dilated. Systolic function is normal. 3. Tricuspid valve: There is mild, 1+ regurgitation. 4. Pericardium, extracardiac: There is no pericardial effusion. 5. Inferior vena cava: The vessel is normal. The IVC collapses by greater than 50% with inspiration. STUDY DATA: Complete transthoracic echocardiogram. Procedure: Image quality was good. M-mode, complete 2D, complete spectral Doppler, and color flow Doppler images were acquired and archived for permanent storage and are available for subsequent review. Study status: Routine. Patient status: Inpatient. FINDINGS LEFT VENTRICLE: The cavity size is normal. Wall thickness is normal. Systolic function is normal by the biplane method of disks. The estimated ejection fraction is 65%. There are no regional wall motion abnormalities. Left ventricular diastolic function parameters are normal. RIGHT VENTRICLE: The cavity size is mildly dilated. Systolic function is normal. Right ventricular systolic pressure is within the normal range. VENTRICULAR SEPTUM: There is no evidence of a ventricular septal defect. LEFT ATRIUM: The atrium is normal in size. RIGHT ATRIUM: The atrium is normal in size. ATRIAL SEPTUM: Color Doppler shows no shunt. MITRAL VALVE: Structurally normal valve. Doppler: There is no significant regurgitation. The peak diastolic gradient is 2 mm Hg. AORTIC VALVE: Structurally normal valve. Trileaflet. Doppler: There is trivial, less than 1+ regurgitation. TRICUSPID VALVE: Structurally normal valve. Doppler: There is mild, 1+ regurgitation. PULMONIC VALVE: Structurally normal valve. Doppler: There is no significant regurgitation. AORTA: The aorta is normal. PULMONARY ARTERY: Main pulmonary artery: Normal. PERICARDIUM: There is no pericardial effusion. SYSTEMIC VEINS: Inferior vena cava: The vessel is normal. The IVC collapses by greater than 50% with inspiration. Measurements Value Reference Ascending aorta ID, A-P, S 3.2 cm --------- Ascending aorta ID/bsa, A-P, S 1.8 cm/m^2 --------- Left ventricle Value Reference LV ID, ED 4.4 cm 3.8 - 5.2 LV ID, ES 2.8 cm 2.2 - 3.5 LV ID/bsa, ED 2.5 cm/m^2 2.3 - 3.1 LV ID/bsa, ES 1.6 cm/m^2 1.3 - 2.1 LV PW thickness, ED 0.9 cm 0.6 - 0.9 LV PW/LV ID ratio, ED 0.21 --------- LV wall mass 136 g 66 - 150 LV wall mass/bsa 78 g/m^2 44 - 88 Stroke volume/bsa, 1-p A2C 17.6 ml/m^2 --------- LV end-diastolic volume, 1-p A4C 67 ml 48 - 140 LV end-systolic volume, 1-p A4C 20 ml 12 - 60 LV end-diastolic volume, 2-p 57 ml 46 - 106 LV end-systolic volume, 2-p 20 ml 14 - 42 LV ejection fraction, 2-p 65 % 54 - 74 LV E/e', lateral 8.8 --------- LV E/e', medial 11.2 --------- LV E/e', average 9.9 --------- Ventricular septum Value Reference IVS thickness, ED (H) 1.0 cm 0.6 - 0.9 LVOT Value Reference LVOT ID, A-P 2.1 cm --------- LVOT mean velocity, S 0.6 m/sec --------- LVOT peak gradient, S 4 mm Hg --------- Stroke volume (SV), LVOT DP 72 ml --------- Stroke index (SV/bsa), LVOT DP 42 ml/m^2 --------- Left atrium Value Reference LA volume/bsa, ES, 2-p 27 ml/m^2 16 - 34 Mitral valve Value Reference Mitral E-wave peak velocity 0.7 m/sec --------- Mitral A-wave peak velocity 1 m/sec --------- Mitral deceleration time 215 ms --------- Mitral peak gradient, D 2 mm Hg --------- Mitral E/A ratio, peak 0.7 --------- Tricuspid valve Value Reference Tricuspid regurg peak velocity 2.5 m/sec <=2.8 Tricuspid peak RV-RA gradient 25 mm Hg --------- Right atrium Value Reference RA area, ES, A4C 12 cm^2 10 - 18 Right ventricle Value Reference RV ID, minor axis, ED, A4C mid 3.2 cm 1.9 - 3.5 (more content not included)... [employer] Work Phone: Echo Complete w/wo Contrasto n 11-09-2020 Echo Complete w/wo Contrast Patient Name: MARGIE FULTON Ultrasound ACCESSION EXAM DATE/TIME PROCEDURE ORDERING PROVIDER [id number] 11/09/2020 10:40 EDT Echo Complete w/wo BRIAN OBREGON Reason For Exam (Echo Complete w/wo Contrast) New onset A fib Report TRANSTHORACIC ECHOCARDIOGRAM PATIENT: Manjula, STUDY DATE: 11/09/2020 Margie : 1940 AGE: 80 HT/WT: 165.1 cm (65 65.3 kg (143.7 in) lb) GENDER: F BP: 110 / 79 LOCATION: [facility] PATIENT Inpatient main STATUS: *ORDERING PHYSICIAN: * Brian Obregon *READING PHYSICIAN: * Theresa, *TREASURY MANAGER: * Priyanka Schreiber [facility], [place], [facility], [facility] INDICATIONS: Onset A-Fib. CONCLUSIONS SUMMARY: 1. Left ventricle: Systolic function is normal by the biplane method of disks. The estimated ejection fraction is 65%. There are no regional wall motion abnormalities. Left ventricular diastolic function parameters are normal. 2. Right ventricle: The cavity size is mildly dilated. Systolic function is normal. 3. Tricuspid valve: There is mild, 1+ regurgitation. 4. Pericardium, extracardiac: There is no pericardial effusion. 5. Inferior vena cava: The vessel is normal. The IVC collapses by greater than 50% with inspiration. STUDY DATA: Complete transthoracic echocardiogram. Procedure: Image quality was good. M-mode, complete 2D, complete spectral Doppler, and color flow Doppler images were acquired and archived for permanent storage and are available for subsequent review. Study status: Routine. Patient status: Inpatient. FINDINGS LEFT VENTRICLE: The cavity size is normal. Wall thickness is normal. Ultrasound Report Systolic function is normal by the biplane method of disks. The estimated ejection fraction is 65%. There are no regional wall motion abnormalities. Left ventricular diastolic function parameters are normal. RIGHT VENTRICLE: The cavity size is mildly dilated. Systolic function is normal. Right ventricular systolic pressure is within the normal range. VENTRICULAR SEPTUM: There is no evidence of a ventricular septal defect. LEFT ATRIUM: The atrium is normal in size. RIGHT ATRIUM: The atrium is normal in size. ATRIAL SEPTUM: Color Doppler shows no shunt. MITRAL VALVE: Structurally normal valve. Doppler: There is no significant regurgitation. The peak diastolic gradient is 2 mm Hg. AORTIC VALVE: Structurally normal valve. Trileaflet. Doppler: There is trivial, less than 1+ regurgitation. TRICUSPID VALVE: Structurally normal valve. Doppler: There is mild, 1+ regurgitation. PULMONIC VALVE: Structurally normal valve. Doppler: There is no significant regurgitation. AORTA: The aorta is normal. PULMONARY ARTERY: Main pulmonary artery: Normal. PERICARDIUM: There is no pericardial effusion. SYSTEMIC VEINS: Inferior vena cava: The vessel is normal. The IVC collapses by greater than 50% with inspiration. Measurements Value Reference Ascending aorta ID, A-P, S 3.2 cm --------- Ascending aorta ID/bsa, A-P, S 1.8 cm/m^2 --------- Left ventricle Value Reference LV ID, ED 4.4 cm 3.8 - 5.2 LV ID, ES 2.8 cm 2.2 - 3.5 LV ID/bsa, ED 2.5 cm/m^2 2.3 - 3.1 LV ID/bsa, ES 1.6 cm/m^2 1.3 - 2.1 LV PW thickness, ED 0.9 cm 0.6 - 0.9 LV PW/LV ID ratio, ED 0.21 --------- LV wall mass 136 g 66 - 150 LV wall mass/bsa 78 g/m^2 44 - 88 Stroke volume/bsa, 1-p A2C 17.6 ml/m^2 --------- LV end-diastolic volume, 1-p A4C 67 ml 48 - 140 LV end-systolic volume, 1-p A4C 20 ml 12 - 60 LV end-diastolic volume, 2-p 57 ml 46 - 106 LV end-systolic volume, 2-p 20 ml 14 - 42 LV ejection fraction, 2-p 65 % 54 - 74 LV E/e', lateral 8.8 --------- LV E/e', medial 11.2 --------- LV E/e', average 9.9 --------- Ventricular septum Value Reference IVS thickness, ED (H) 1.0 cm 0.6 - 0.9 LVOT Value Reference LVOT ID, A-P 2.1 cm --------- LVOT mean velocity, S 0.6 m/sec --------- LVOT peak gradient, S 4 mm Hg --------- Stroke volume (SV), LVOT DP 72 ml --------- Stroke index (SV/bsa), LVOT DP 42 ml/m^2 --------- Ultrasound Report Left atrium Value Reference LA volume/bsa, ES, 2-p 27 ml/m^2 16 - 34 Mitral valve Value Reference Mitral E-wave peak velocity 0.7 m/sec --------- Mitral A-wave peak velocity 1 m/sec --------- Mitral deceleration time 215 ms --------- Mitral peak gradient, D 2 mm Hg --------- Mitral E/A ratio, peak 0.7 --------- Tricuspid valve Value Reference Tricuspid regurg peak velocity 2.5 m/sec <=2.8 Tricuspi (more content not included)... Normal [facility] Hemogram w/ Autodiffon 11-09 Abs Baso Cnt 0.1 10*3/uL Normal 0.0-0.2 [facility] Comment on above: Performed By: #### Karen MP3M, HEMDF #### [facility] [employer] [address] [place] [address] Abs Neutrophile Cnt 3.8 10*3/uL Normal 1.8-7.0 [facility] Comment on above: Performed By: #### Karen MP3M, HEMDF #### [facility] [employer] [facility] [address] [place] [address] Basophils/100 WBC (Bld) 0.8 % Normal 0.0-2.0 S [facility] Comment on above: Performed By: #### Karen MP3M, HEMDF #### [facility] [employer] [address] [place] [address] Eosinophils (Bld) [#/Vol] 0.3 10*3/uL Normal 0.0-0.5 [facility] Comment on above: Performed By: #### Karen MP3M, HEMDF #### [facility] [address] [place] [address] Eosinophils/100 WBC (Bld) 5.3 % Normal 1.0-6.0 [facility] Comment on above: Performed By: #### Karen MP3M, HEMDF #### [facility] [address] [place], [place] Erythrocyte distribution width (RBC) [Ratio] 13.6 % Normal 11.5-14.5 [facility] Comment on above: Performed By: #### B MP3M, HEMDF #### [facility] [address] [place], [place] Granulocytes/100 WBC (Bld) 59.1 % Normal 40.0-80.0 [facility] Comment on above: Performed By: #### B MP3M, HEMDF #### [facility] [address] [place], [place] Hematocrit (Bld) [Volume fraction] 35.5 % Normal 35.0-47.0 [facility] Comment on above: Performed By: #### B MP3M, HEMDF #### [address] [place], [place] Hemoglobin (Bld) [Mass/Vol] 11.8 g/dL Normal 11.7-16.0 [facility] Comment on above: Performed By: #### B MP3M, HEMDF #### [address] [address] [place], [place] Lymphocytes (Bld) [#/Vol] 1.8 10*3/uL Normal 1.0-4.3 [facility] Comment on above: Performed By: #### B MP3M, HEMDF #### [facility] [address] [place], [place] Lymphocytes/100 WBC (Bld) 27.9 % Normal 20.0-40.0 [facility] Comment on above: Performed By: #### B MP3M, HEMDF #### [facility] [address] [place], [place] MCH (RBC) [Entitic mass] 32.0 pg Normal 26.0-34.0 [facility] Comment on above: Performed By: #### B MP3M, HEMDF #### [address] [address] [place], [place] MCHC 33.3 % Normal 32.0-36.0 [facility] Comment on above: Performed By: #### B MP3M, HEMDF #### [facility] [address] [place], [place] MCV (RBC) [Entitic vol] 96.1 fL Normal 79.0-98.0 [facility] Comment on above: Performed By: #### B MP3M, HEMDF #### [address] [address] [place], [place] Monocytes (Bld) [#/Vol] 0.4 10*3/uL Normal 0.0-0.8 [facility] Comment on above: Performed By: #### B MP3M, HEMDF #### [address] [address] [place], [place] Monocytes/100 WBC (Bld) 6.9 % Normal 2.0-10.0 S [facility] Comment on above: Performed By: #### B MP3M, HEMDF #### [address] [address] [place], [place] Platelet mean volume (Bld) [Entitic vol] 7.9 fL Normal 7.4-10.4 [facility] Comment on above: Performed By: #### B MP3M, HEMDF #### [address] [address] [place], [place] Platelets (Bld) [#/Vol] 218 10*3/uL Normal 140-440 [facility] Comment on above: Performed By: #### B MP3M, HEMDF #### [address] [address] [place], [place] RBC (Bld) [#/Vol] 3.70 10*6/uL Low 3.80-5.20 [facility] Comment on above: Performed By: #### B MP3M, HEMDF #### [address] [address] [place], [place] WBC (Bld) [#/Vol] 6.4 10*3/uL Normal 3.6-10.7 [facility] Comment on above: Performed By: #### B MP3M, HEMDF #### [address] [address] XR CHEST PORTABLEOrdered By: Rajni Hwang on 11-09-2020 Patient Name: MARGIE FULTON Diagnostic Radiology ACCESSION EXAM DATE/TIME PROCEDURE ORDERING PROVIDER [id number] 11/09/2020 08:12 EDT CR Chest Portable MD HWANG LORNA CPT code 21783 Reason For Exam (CR Chest Portable) s/p R thora Report PORTABLE CHEST CLINICAL INDICATION: Status post thoracentesis. COMPARISON: Yesterday. TECHNIQUE: A single frontal view of thorax was obtained and reviewed. IMPRESSION: 1. Lines/ tubes/ devices: None. 2. Lungs and Pleura: Mild right apical pleural thickening, unchanged. There is slight elevation of the right hemidiaphragm. Minimal left basilar atelectasis, unchanged. No infiltrate or mass. No pneumothorax or pleural effusion. 3. Heart and mediastinum: Normal cardiomediastinal margin. 4. Bones: Thoracic degenerative spondylosis. Inferior cervical plate and screws. Acute, fourth lateral rib fracture is redemonstrated. Report Dictated on --- Final --- Dictated: 11/09/2020 7:51 am Dictating Physician: TANI ZAMORA DO, I Signed Date and Time: 11/09/2020 7:53 am Signed by: TANI ZAMORA DO, I Transcribed Date and Time: 11/09/2020 7:51 [facility] Work Phone: Devan, [facility] Incoming Radiology Results From [facility] - 11/09/2020 8:12 AM EDT Patient Name: MARGIE FULTON Diagnostic Radiology ACCESSION EXAM DATE/TIME PROCEDURE ORDERING PROVIDER [id number] 11/09/2020 08:12 EDT CR Chest Portable MD KIRSTY, RAJNI CPT code 00058 Reason For Exam (CR Chest Portable) s/p R thora Report PORTABLE CHEST CLINICAL INDICATION: Status post thoracentesis. COMPARISON: Yesterday. TECHNIQUE: A single frontal view of thorax was obtained and reviewed. IMPRESSION: 1. Lines/ tubes/ devices: None. 2. Lungs and Pleura: Mild right apical pleural thickening, unchanged. There is slight elevation of the right hemidiaphragm. Minimal left basilar atelectasis, unchanged. No infiltrate or mass. No pneumothorax or pleural effusion. 3. Heart and mediastinum: Normal cardiomediastinal margin. 4. Bones: Thoracic degenerative spondylosis. Inferior cervical plate and screws. Acute, fourth lateral rib fracture is redemonstrated. Report Dictated on --- Final --- Dictated: 11/09/2020 7:51 am Dictating Physician: TANI ZAMORA DO, I Signed Date and Time: 11/09/2020 7:53 am Signed by: TANI ZAMORA DO, I Transcribed Date and Time: 11/09/2020 7:51 [facility] Work Phone: Add On Lab TestOrdered By: Oneyda Sheridan on 11-08-2020 Add On see comment [facility] Work Phone: Comment on above: added on mag. cannot add on ionized calcium. must be done on unspun green top tube. 11/08/2020 01:12 Test Performed by [facility], [address] [place] [address] [facility] Work Phone: Add on test from HISon 11-08 Add on test from HIS see comment Normal [facility] Comment on above: Result Comment: adde d on mag. cannot add on ionized calcium. must be done on unspun green top tube. 11/08/2020 01:12 Performed By: #### A DDON #### [address] [address] Basic Metabolic Panelon - Anion gap [Moles/Vol] 6 mmol/L Normal 3-13 [facility] Comment on above: Performed By: #### M G3, HEMDF, BMP3M #### [address] [address] Calcium [Mass/Vol] 8.8 mg/dL Normal 8.4-10.4 [facility] Comment on above: Performed By: #### M G3, HEMDF, BMP3M #### [facility] [address] [place] [address] CO2 [Moles/Vol] 26 mmol/L Normal 22-30 [facility] Comment on above: Performed By: #### M G3, HEMDF, BMP3M #### [facility] [address] [place] [address] Creatinine [Mass/Vol] 0.66 mg/dL Normal 0.52-1.25 [facility] Comment on above: Performed By: #### M G3, HEMDF, BMP3M #### [address] [address] [place] [address] GFR/1.73 sq M.predicted among blacks MDRD (S/P/Bld) [Vol rate/Area] mL/min/{1.73_m2} Normal >60 [facility] Comment on above: Performed By: #### M G3, HEMDF, BMP3M #### [address] [address] [place] [address] GFR/1.73 sq M.predicted among non-blacks MDRD (S/P/Bld) [Vol rate/Area] 84.3 mL/min/{1.73_m2} Normal >60 [facility] Comment on above: Result Comment: KDIG O guidelines provide the following GFR categories: Stage GFR(ml/min/1.73 m2) Terms G1 >=90 Normal or high G2 60-89 Mildly decreased* G3a 45-59 Mildly to moderately decreased G3b 30-44 Moderately to severely decreased G4 15-29 Severely decreased G5 <15 Kidney failure *Relative to young adult level. In the absence of evidence of kidney damage, neither GFR category G1 nor G2 fulfill the criteria for CKD. The CKD-EPI equation is validated in individuals 18 years of age and older. Currently the best equation for estimating glomerular filtration rate (GFR) from serum creatinine in children is the Bedside Sibley equation. It is less accurate in patients with extremes of muscle mass, restriction of dietary protein, ingestion of creatine, extra-renal metabolism of creatinine, or treatment with medications that affect renal tubular creatinine secretion. Performed By: #### M G3, HEMDF, BMP3M #### [address] [place] [address] Glucose [Mass/Vol] 103 mg/dL High 70-100 [facility] Comment on above: Performed By: #### Oneyda Harp HEMBETY BMP3M #### [facility] [address] [place] [address] Urea nitrogen [Mass/Vol] 12 mg/dL Normal 7-20 [facility] Comment on above: Performed By: #### Oneyda Harp HEMDF BMP3M #### [facility] [address] [place], [place] Chloride [Moles/Vol] 105 mmol/L Normal 98-107 [facility] Comment on above: Performed By: #### Oneyda Harp HEMBETY BMP3M #### [address] [address] [place], [place] Potassium [Moles/Vol] 3.7 mmol/L Normal 3.5-5.1 [facility] Comment on above: Performed By: #### Oneyda Harp HEMBETY BMP3M #### [address] [place], [place] Sodium [Moles/Vol] 137 mmol/L Normal 135-145 [facility] Comment on above: Performed By: #### Oneyda Harp HEMBETY BMP3M #### [address] [address] [place], [place] Basic Metabolic Panel w/ Ref song to MGOrdered By: Rajni Hwang on 11-08-2020 Anion gap [Moles/Vol] 6 mmol/L 3 - 13 mmol/L [facility] Work Phone: [phone] Calcium [Mass/Vol] 8.8 mg/dL 8.4 - 10. 4 mg/dL [facility] Work Phone: [phone] Chloride [Moles/Vol] 105 mmol/L 98 - 10 7 mmol/L [facility] Work Phone: [phone] CO2 [Moles/Vol] 26 mmol/L 22 - 30 mmol/L [facility] Work Phone: [phone] Creatinine [Mass/Vol] 0.66 mg/dL 0.52 - 1.25 mg/dL [facility] Work Phone: [phone] EGFR IF NonAfrican Ivorian 84.3 mL/min >60 [facility] Work Phone: [phone] Comment on above: KDIGO guidelines pro vide the following GFR categories: Stage GFR(ml/min/1.73 m2) Terms G1 >=90 Normal or high G2 60-89 Mildly decreased* G3a 45-59 Mildly to moderately decreased G3b 30-44 Moderately to severely decreased G4 15-29 Severely decreased G5 <15 Kidney failure *Relative to young adult level. In the absence of evidence of kidney damage, neither GFR category G1 nor G2 fulfill the criteria for CKD. The CKD-EPI equation is validated in individuals 18 years of age and older. Currently the best equation for estimating glomerular filtration rate (GFR) from serum creatinine in children is the Bedside Sibley equation. It is less accurate in patients with extremes of muscle mass, restriction of dietary protein, ingestion of creatine, extra-renal metabolism of creatinine, or treatment with medications that affect renal tubular creatinine secretion. GFR/1.73 sq M.predicted among blacks MDRD (S/P/Bld) [Vol rate/Area] mL/min/{1.73_m2} >60 mL/min [facility] Work Phone: [phone] Glucose [Mass/Vol] 103 mg/dL High 70 - 100 mg/dL [facility] Work Phone: [phone] Potassium [Moles/Vol] 3.7 mmol/L 3.5 - 5.1 mmol/L [facility] Work Phone: [phone] Sodium [Moles/Vol] 137 mmol/L 135 - 145 mmol/L [facility] Work Phone: [phone] Urea nitrogen (BldV) [Mass/Vol] 12 mg/dL 7 - 20 mg/dL [facility] Work Phone: [phone] CBC auto differentialOrdered By: Rajni Hwang on 11-08-2020 Absolute Neut # 4.8 10*3/uL 1.8 - 7.0 10*3/uL [facility] Work Phone: [phone] Hemoglobin.gastrointest inal spec 1 Ql (Stl) 12.0 g/dL 11.7 - 16.0 g/dL [facility] Work Phone: [phone] CR Chest Portableon 11-09-19 21 CR Chest Portable [facility]: [id number]iology ACCESSION EXAM DATE/TIME PROCEDURE ORDERING PROVIDER [id number] 11/08/2020 07:07 EDT CR Chest Portable MD HWANG LORNA CPT code 91178 Reason For Exam (CR Chest Portable) s/p R thora Report EXAM TYPE: RADIOLOGIC EXAMINATION, CHEST, SINGLE VIEW FRONTAL (CXR SINGLE VIEW) EXAM DATE AND TIME: 11/08/2020 7:07 AM EDT INDICATION: Thoracentesis COMPARISON: 11/07/2020 TECHNIQUE: A single frontal view of the thorax was obtained and reviewed. Special views: None. IMPRESSION: 1. Lines/Tubes/Devices/Hard lay: Right chest tube removed.. Please confirm position/function of devices/catheters clinically. 2. Lungs: Persistent interstitial prominence, nonspecific. Fibrosis, edema, infiltrate or combination can be considered. Continued mild atelectasis or scarring left lower lobe. 3. Pleura: No significant effusion. No significant pneumothorax. Minimal right subcutaneous emphysema. 4. Heart and mediastinum: Limited due to technique. 5. Upper abdomen: No acute process seen. 6. 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 : 1940 Requested By: ROSEMARIE MCKEON Order Number: [id number] Reading MD: Emmanuel Hernandez Measurements Intervals [place] Rate: 148 P: MO: QRS: 47 QRSD: 91 T: 224 QT: 260 QTc: 409 Interpretive Statements Atrial fibrillation with rapid V-rate Abnormal R-wave progression, early transition Repolarization abnormality, prob rate related Electronically Signed On 11-08-2020 21:29:59 EDT by Emmanuel TEJADA Work Phone: Devan, [facility] Incoming Cardiology Results From [facility] - 11/08/2020 9:31 PM EDT [facility] Test Date: 2020-11-07 Pat Name: MARGIE FULTON Department: [facility] Room: [facility] Gender: F 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 : 1940 Requested By: ROSEMARIE MCKEON Order Number: [id number] Reading MD: Emmanuel Hernandez Measurements Intervals [place] Rate: 148 P: MO: QRS: 47 QRSD: 91 T: 224 QT: 260 QTc: 409 Interpretive Statements Atrial fibrillation with rapid V-rate Abnormal R-wave progression, early transition Repolarization abnormality, prob rate related Electronically Signed On 11-08-2020 21:29:59 EDT by Emmanuel TEJADA Work Phone: Hemogram w/ Autodiffon 11-08 Abs Baso Cnt 0.0 10*3/uL Normal 0.0-0.2 [facility] Comment on above: Performed By: #### Oneyda G3, HEMDF, BMP3M #### [address] Abs Neutrophile Cnt 4.8 10*3/uL Normal 1.8-7.0 [facility] Comment on above: Performed By: #### Oneyda G3, HEMDF, BMP3M #### [facility] [employer] [address] Erythrocyte distribution width (RBC) [Ratio] 13.4 % Normal 11.5-14.5 [facility] Comment on above: Performed By: #### Oneyda G3, HEMDF, BMP3M #### [facility] [address] [place], [place] Hemoglobin (Bld) [Mass/Vol] 12.0 g/dL Normal 11.7-16.0 [facility] Comment on above: Performed By: #### Oneyda G3, HEMDF, BMP3M #### [facility] [place] [address] MCHC 33.7 % Normal 32.0-36.0 [facility] Comment on above: Performed By: #### Oneyda G3, HEMDF, BMP3M #### [facility] [place] [address] Hemogram w/ AutodiffOrdered By: Rajni Hwang on 11-08-2020 Eosinophils (Bld) [#/Vol] 0.2 10*3/uL Normal 0.0-0.5 [facility] Work Phone: [phone] Comment on above: Performed By: #### Oneyda G3, HEMDF, BMP3M #### [facility] [employer] [address] [place] [address] Eosinophils/100 WBC (Bld) 2.1 % Normal 1.0-6.0 [facility] Work Phone: [phone] Comment on above: Performed By: #### Oneyda G3, HEMDF, BMP3M #### [facility] [employer] [address] [address] [place], [place] Granulocytes/100 WBC (Bld) 64.7 % Normal 40.0-80.0 [facility] Work Phone: [phone] Comment on above: Performed By: #### Oneyda G3, HEMDF, BMP3M #### [facility] [employer] [facility] [place] [address] Hematocrit (Bld) [Volume fraction] 35.7 % Normal 35.0-47.0 [facility] Work Phone: [phone] Comment on above: Performed By: #### Oneyda G3, HEMDF, BMP3M #### [facility] [employer] [address] [place] [address] Lymphocytes (Bld) [#/Vol] 1.8 10*3/uL Normal 1.0-4.3 [facility] Work Phone: [phone] Comment on above: Performed By: #### Oneyda G3, HEMDF, BMP3M #### [facility] [employer] [address] [place] [address] Lymphocytes/100 WBC (Bld) 23.5 % Normal 20.0-40.0 [facility] Work Phone: [phone] Comment on above: Performed By: #### Oneyda G3, HEMDF, BMP3M #### [employer] [facility] [address] [place] MCH (RBC) [Entitic mass] 32.2 pg Normal 26.0-34.0 [facility] Work Phone: [phone] Comment on above: Performed By: #### Oneyda G3, HEMDF, BMP3M #### [employer] [facility] [address] [place] MCV (RBC) [Entitic vol] 95.5 fL Normal 79.0-98.0 S [facility] Work Phone: [phone] Comment on above: Performed By: #### Oneyda G3, HEMDF, BMP3M #### [employer] [address] [address] [place], [place] Monocytes (Bld) [#/Vol] 0.7 10*3/uL Normal 0.0-0.8 [facility] Work Phone: [phone] Comment on above: Performed By: #### Oneyda G3, HEMDF, BMP3M #### [employer] [facility] [address] [place] Monocytes/100 WBC (Bld) 9.1 % Normal 2.0-10.0 [facility] Work Phone: [phone] Comment on above: Performed By: #### Oneyda G3, HEMDF, BMP3M #### [employer] [address] [address] [place], [place] Platelet mean volume (Bld) [Entitic vol] 7.8 fL Normal 7.4-10.4 [facility] Work Phone: [phone] Comment on above: Performed By: #### Oneyda G3, HEMDF, BMP3M #### [employer] [address] [address] [place], [place] Platelets (Bld) [#/Vol] 202 10*3/uL Normal 140-440 [facility] Work [phone] Comment on above: Performed By: #### M G3, HEMDF, BMP3M #### [address] [address] [place], [place] RBC (Bld) [#/Vol] 3.74 10*6/uL Low 3.80-5.20 [facility] Work Phone: Comment on above: Performed By: #### M G3, HEMDF, BMP3M #### [address] [address] [place] [address] Magnesiumon 11-08-2020 Magnesium [Mass/Vol] 2.2 mg/dL Normal 1.6-2.3 [facility] Comment on above: Performed By: #### M G3, HEMDF, BMP3M #### [address] [address] [place], [place] MagnesiumOrdered By: Rajni rosado on 11-08-2020 Magnesium [Mass/Vol] 2.2 mg/dL 1.6 - 2 .3 mg/dL [facility] Work Phone: Test Performed by [address] Work Phone: No Panel InformationOrdered By: Rajni Hwang on 11-08-2020 Interpretation and review of laboratory results Abnormal [facility] Work Phone: Test Performed by [facility], [address] [place] [id number] [place], [place] [id number] Work Phone: XR CHEST PORTABLEOrdered By: Rajni Hwang on 11-08-2020 [id number] Radiology ACCESSION EXAM DATE/TIME PROCEDURE ORDERING PROVIDER [id number] 11/08/2020 07:07 EDT CR Chest Portable MD KIRSTY, RAJNI CPT code 64051 Reason For Exam (CR Chest Portable) s/p R thora Report EXAM TYPE: RADIOLOGIC EXAMINATION, CHEST, SINGLE VIEW FRONTAL (CXR SINGLE VIEW) EXAM DATE AND TIME: 11/08/2020 7:07 AM EDT INDICATION: Thoracentesis COMPARISON: 11/07/2020 TECHNIQUE: A single frontal view of the thorax was obtained and reviewed. Special views: None. IMPRESSION: 1. Lines/Tubes/Devices/Hard lay: Right chest tube removed.. Please confirm position/function of devices/catheters clinically. 2. Lungs: Persistent interstitial prominence, nonspecific. Fibrosis, edema, infiltrate or combination can be considered. Continued mild atelectasis or scarring left lower lobe. 3. Pleura: No significant effusion. No significant pneumothorax. Minimal right subcutaneous emphysema. 4. Heart and mediastinum: Limited due to technique. 5. Upper abdomen: No acute process seen. 6. Thorax:No acute bony process Report Dictated on --- Final --- Dictated: 11/08/2020 8:47 am Dictating Physician: MD CHAN JOHN Signed Date and Time: 11/08/2020 8:49 am Signed by: MD CHAN JOHN Transcribed Date and Time: 11/08/2020 8:47 [facility] Work Phone: Devan, [facility] Incoming Radiology Results From [facility] - 11/08/2020 8:50 AM EDT Patient Name: MARGIE FULTON Diagnostic Radiology ACCESSION EXAM DATE/TIME PROCEDURE ORDERING PROVIDER [id number] 11/08/2020 07:07 EDT CR Chest Portable MD HWANG LORNA CPT code 99577 Reason For Exam (CR Chest Portable) s/p R thora Report EXAM TYPE: RADIOLOGIC EXAMINATION, CHEST, SINGLE VIEW FRONTAL (CXR SINGLE VIEW) EXAM DATE AND TIME: 11/08/2020 7:07 AM EDT INDICATION: Thoracentesis COMPARISON: 11/07/2020 TECHNIQUE: A single frontal view of the thorax was obtained and reviewed. Special views: None. IMPRESSION: 1. Lines/Tubes/Devices/Hard lay: Right chest tube removed.. Please confirm position/function of devices/catheters clinically. 2. Lungs: Persistent interstitial prominence, nonspecific. Fibrosis, edema, infiltrate or combination can be considered. Continued mild atelectasis or scarring left lower lobe. 3. Pleura: No significant effusion. No significant pneumothorax. Minimal right subcutaneous emphysema. 4. Heart and mediastinum: Limited due to technique. 5. Upper abdomen: No acute process seen. 6. Thorax:No acute bony process Report Dictated on --- Final --- Dictated: 11/08/2020 8:47 am Dictating Physician: MD CHAN JOHN Signed Date and Time: 11/08/2020 8:49 am Signed by: MD CHAN JOHN Transcribed Date and Time: 11/08/2020 8:47 [facility] Work Phone: Basic Metabolic Panelon 10-16 Calcium [Mass/Vol] 8.4 mg/dL Normal 8.4-10.4 [facility] Comment on above: Performed By: #### B MP3M, HEMDF #### [address] [address] [place], [place] Glucose [Mass/Vol] 96 mg/dL Normal 70-100 [facility] Comment on above: Performed By: #### B MP3M, HEMDF #### [address] [address] [place], [place] Anion gap [Moles/Vol] 5 mmol/L Normal 3-13 [facility] Comment on above: Performed By: #### B MP3M, HEMDF #### [address] [address] [place], [place] CO2 [Moles/Vol] 26 mmol/L Normal 22-30 [facility] Comment on above: Performed By: #### B MP3M, HEMDF #### [facility] [address] [place], [place] Creatinine [Mass/Vol] 0.59 mg/dL Normal 0.52-1.25 [facility] Comment on above: Performed By: #### B MP3M, HEMDF #### [facility] [address] [place], [place] GFR/1.73 sq M.predicted among blacks MDRD (S/P/Bld) [Vol rate/Area] mL/min/{1.73_m2} Normal >60 [facility] Comment on above: Performed By: #### B MP3M, HEMDF #### [address] [address] GFR/1.73 sq M.predicted among non-blacks MDRD (S/P/Bld) [Vol rate/Area] 87.5 mL/min/{1.73_m2} Normal >60 [facility] Comment on above: Result Comment: KDIG O guidelines provide the following GFR categories: Stage GFR(ml/min/1.73 m2) Terms G1 >=90 Normal or high G2 60-89 Mildly decreased* G3a 45-59 Mildly to moderately decreased G3b 30-44 Moderately to severely decreased G4 15-29 Severely decreased G5 <15 Kidney failure *Relative to young adult level. In the absence of evidence of kidney damage, neither GFR category G1 nor G2 fulfill the criteria for CKD. The CKD-EPI equation is validated in individuals 18 years of age and older. Currently the best equation for estimating glomerular filtration rate (GFR) from serum creatinine in children is the Bedside Sibley equation. It is less accurate in patients with extremes of muscle mass, restriction of dietary protein, ingestion of creatine, extra-renal metabolism of creatinine, or treatment with medications that affect renal tubular creatinine secretion. Performed By: #### B MP3M, HEMDF #### [address] Urea nitrogen [Mass/Vol] 15 mg/dL Normal 7-20 [facility] Comment on above: Performed By: #### Karen MP3M, HEMDF #### [address] [address] Chloride [Moles/Vol] 103 mmol/L Normal 98-107 [facility] Comment on above: Performed By: #### B MP3M, HEMDF #### [address] [address] Potassium [Moles/Vol] 4.0 mmol/L Normal 3.5-5.1 [facility] Comment on above: Performed By: #### B MP3M, HEMDF #### [address] [address] Sodium [Moles/Vol] 133 mmol/L Low 135-145 [facility] Comment on above: Performed By: #### B MP3M, HEMDF #### [facility] [address] [address] Basic Metabolic Panel w/ Ref song to MGOrdered By: Rajni Hwang on 11-07-2020 Anion gap [Moles/Vol] 5 mmol/L 3 - 13 mmol/L [facility] Work Phone: Calcium [Mass/Vol] 8.4 mg/dL 8.4 - 10. 4 mg/dL [facility] Work Phone: Chloride [Moles/Vol] 103 mmol/L 98 - 10 7 mmol/L [facility] Work Phone: [phone] CO2 [Moles/Vol] 26 mmol/L 22 - 30 mmol/L [facility] Work Phone: [phone] Creatinine [Mass/Vol] 0.59 mg/dL 0.52 - 1.25 mg/dL [facility] Work Phone: EGFR IF NonAfrican Ivorian 87.5 mL/min >60 [facility] Work Phone: Comment on above: KDIGO guidelines pro vide the following GFR categories: Stage GFR(ml/min/1.73 m2) Terms G1 >=90 Normal or high G2 60-89 Mildly decreased* G3a 45-59 Mildly to moderately decreased G3b 30-44 Moderately to severely decreased G4 15-29 Severely decreased G5 <15 Kidney failure *Relative to young adult level. In the absence of evidence of kidney damage, neither GFR category G1 nor G2 fulfill the criteria for CKD. The CKD-EPI equation is validated in individuals 18 years of age and older. Currently the best equation for estimating glomerular filtration rate (GFR) from serum creatinine in children is the Bedside Sibley equation. It is less accurate in patients with extremes of muscle mass, restriction of dietary protein, ingestion of creatine, extra-renal metabolism of creatinine, or treatment with medications that affect renal tubular creatinine secretion. GFR/1.73 sq M.predicted among blacks MDRD (S/P/Bld) [Vol rate/Area] mL/min/{1.73_m2} >60 mL/min [facility] Work Phone: Glucose [Mass/Vol] 96 mg/dL 70 - 100 mg/dL [facility] Work Phone: Interpretation and review of laboratory results Abnormal [facility] Work Phone: Potassium [Moles/Vol] 4.0 mmol/L 3.5 - 5.1 mmol/L [facility] Work Phone: Sodium [Moles/Vol] 133 mmol/L Low 135 - 145 mmol/L [facility] Work Phone: 1 Urea nitrogen (BldV) [Mass/Vol] 15 mg/dL 7 - 20 mg/dL [facility] Work Phone: Test Performed by [facility], [address] [place] [address] [facility] Work Phone: CBC auto differentialOrdered By: Rajni Hwang on 11-07-2020 Absolute Neut # 5.5 10*3/uL 1.8 - 7.0 10*3/uL [employer] Work Phone: Eosinophils (Bld) [#/Vol] 0.1 10*3/uL 0.0 - 0.5 10*3/uL [facility] Work Phone: Eosinophils/100 WBC (Bld) 1.4 % 1.0 - 6.0 % [facility] Work Phone: Granulocytes/100 WBC (Bld) 73.3 % 40.0 - 80.0 % [facility] Work Phone: Hematocrit (Bld) [Volume fraction] 35.2 % 35.0 - 47.0 % [facility] Work Phone: Hemoglobin.gastrointest inal spec 1 Ql (Stl) 11.9 g/dL 11.7 - 16.0 g/dL [facility] Work Phone: 1 Interpretation and review of laboratory results Abnormal [facility] Work Phone: Lymphocytes (Bld) [#/Vol] 1.3 10*3/uL 1.0 - 4.3 10*3/uL [facility] Work Phone: Lymphocytes/100 WBC (Bld) 17.2 % Low 20.0 - 40.0 % [facility] Work Phone: MCH (RBC) [Entitic mass] 32.0 pg 26.0 - 34.0 pg [facility] Work Phone: [phone] MCV (RBC) [Entitic vol] 95.0 fL 79.0 - 98.0 fL [facility] Work Phone: [phone] Monocytes (Bld) [#/Vol] 0.6 10*3/uL 0.0 - 0.8 10*3/uL [facility] Work Phone: [phone] Monocytes/100 WBC (Bld) 7.5 % 2.0 - 10.0 % [facility] Work Phone: [phone] Platelet mean volume (Bld) [Entitic vol] 7.6 fL 7.4 - 10.4 fL [facility] Work Phone: 1 Platelets (Bld) [#/Vol] 194 10*3/uL 140 - 440 10*3/uL [facility] Work Phone: 1 RBC (Bld) [#/Vol] 3.71 10*6/uL Low 3.80 - 5.2 0 10*6/uL [facility] Work Phone: [phone] Performed by [facility], [address] [place] [address] [employer] Work Phone: [phone] Chest Portableon 11-08-19 21 CR Chest Portable Patient Name: MARGIE FULTON Diagnostic Radiology ACCESSION EXAM DATE/TIME PROCEDURE ORDERING PROVIDER [id number] 11/07/2020 07:57 EDT CR Chest Portable MD HWANG LORNA CPT code 55178 Reason For Exam (CR Chest Portable) s/p R thora Report Portable chest 11/07/2020: Clinical Information: History of right thoracentesis. Findings: A single AP portable view of the chest was obtained at 725 hours. Comparison was made to the prior study prior day. The right-sided PICC line is unchanged. The right-sided chest tube is no longer identified and appears to been removed. No pneumothorax is identified. There is a small amount of residual subcutaneous emphysema in the right lateral chest wall. There is a patchy infiltrate in the right midlung field. There is left basal atelectasis. Report Dictated on Final Dictated: 11/07/2020 8:43 am Dictating Physician: MD HUIZAR RISA Signed Date and Time: 11/07/2020 8:44 am Signed by: MD HUIZAR RISA Transcribed Date and Time: 11/07/2020 8:43 Normal [facility] Hemogram w/ Autodiffon 11-07 Abs Baso Cnt 0.0 10*3/uL Normal 0.0-0.2 [facility] Comment on above: Performed By: #### B MP3M, HEMDF #### [facility] [address] [place], [place] Abs Neutrophile Cnt 5.5 10*3/uL Normal 1.8-7.0 [facility] Comment on above: Performed By: #### B MP3M, HEMDF #### [address] [address] [place], [place] Eosinophils (Bld) [#/Vol] 0.1 10*3/uL Normal 0.0-0.5 [facility] Comment on above: Performed By: #### B MP3M, HEMDF #### [address] [address] [place], [place] Eosinophils/100 WBC (Bld) 1.4 % Normal 1.0-6.0 [facility] Comment on above: Performed By: #### B MP3M, HEMDF #### [facility] [address] [place], [place] Erythrocyte distribution width (RBC) [Ratio] 13.4 % Normal 11.5-14.5 [facility] Comment on above: Performed By: #### B MP3M, HEMDF #### [address] [address] [place], [place] Granulocytes/100 WBC (Bld) 73.3 % Normal 40.0-80.0 [facility] Comment on above: Performed By: #### B MP3M, HEMDF #### [address] [address] [place], [place] Hematocrit (Bld) [Volume fraction] 35.2 % Normal 35.0-47.0 [facility] Comment on above: Performed By: #### B MP3M, HEMDF #### [address] [address] [place], [place] Hemoglobin (Bld) [Mass/Vol] 11.9 g/dL Normal 11.7-16.0 [facility] Comment on above: Performed By: #### B MP3M, HEMDF #### [address] [address] [place], [place] Lymphocytes (Bld) [#/Vol] 1.3 10*3/uL Normal 1.0-4.3 [facility] Comment on above: Performed By: #### B MP3M, HEMDF #### [address] Lymphocytes/100 WBC (Bld) 17.2 % Low 20.0-40.0 [facility] Comment on above: Performed By: #### B MP3M, HEMDF #### [address] [address] [place], [place] MCH (RBC) [Entitic mass] 32.0 pg Normal 26.0-34.0 [facility] Comment on above: Performed By: #### B MP3M, HEMDF #### [address] [address] [place], [place] MCHC 33.7 % Normal 32.0-36.0 [facility] Comment on above: Performed By: #### B MP3M, HEMDF #### [address] [address] [place], [place] MCV (RBC) [Entitic vol] 95.0 fL Normal 79.0-98.0 [facility] Comment on above: Performed By: #### B MP3M, HEMDF #### [address] Monocytes (Bld) [#/Vol] 0.6 10*3/uL Normal 0.0-0.8 [facility] Comment on above: Performed By: #### B MP3M, HEMDF #### [address] [address] [place], [place] Monocytes/100 WBC (Bld) 7.5 % Normal 2.0-10.0 [facility] Comment on above: Performed By: #### B MP3M, HEMDF #### [address] [address] [place], [place] Platelet mean volume (Bld) [Entitic vol] 7.6 fL Normal 7.4-10.4 [facility] Comment on above: Performed By: #### B MP3M, HEMDF #### [address] [address] [place], [place] Platelets (Bld) [#/Vol] 194 10*3/uL Normal 140-440 [facility] Comment on above: Performed By: #### B MP3M, HEMDF #### [address] [address] [place], [place] RBC (Bld) [#/Vol] 3.71 10*6/uL Low 3.80-5.20 [facility] Comment on above: Performed By: #### B MP3M, HEMDF #### [address] [address] [place], [place] Hemogram w/ AutodiffOrdered By: Rajni Hwang on 11-07-2020 Basophils/100 WBC (Bld) 0.6 % Normal 0.0-2.0 [facility] Work Phone: Comment on above: Performed By: #### M G3, HEMDF, BMP3M #### [address] [address] [place], [place] Performed By: #### B MP3M, HEMDF #### [address] [address] [place], [place] WBC (Bld) [#/Vol] 7.5 10*3/uL Normal 3.6-10.7 [facility] Work Phone: Comment on above: Performed By: #### M G3, HEMDF, BMP3M #### [address] [address] [place], [place] Performed By: #### B MP3M, HEMDF #### [facility] [address] [place] [phone] Laboratory - Hematology and Cell countsOrdered By: Rajni Hwang on 11-07-2020 MCHC (RBC) [Mass/Vol] 33.7 % 32.0 - 36.0 % [facility] Work Phone: Platelet distribution width (Bld) [Ratio] 13.4 % 11.5 - 14.5 % [facility] Work Phone: [phone] No Panel InformationOrdered By: Rajni Hwang on 11-07-2020 Absolute Baso # 0.0 10*3/uL 0.0 - 0.2 10*3/uL [facility] Work Phone: XR CHEST PORTABLEOrdered By: Rajni Hwang on 11-07-2020 Patient Name: MARGIE FULTON Diagnostic Radiology ACCESSION EXAM DATE/TIME PROCEDURE ORDERING PROVIDER [id number] 11/07/2020 07:57 EDT CR Chest Portable MD HWANG LORNA CPT code 67483 Reason For Exam (CR Chest Portable) s/p R thora Report Portable chest 11/07/2020: Clinical Information: History of right thoracentesis. Findings: A single AP portable view of the chest was obtained at 725 hours. Comparison was made to the prior study prior day. The right-sided PICC line is unchanged. The right-sided chest tube is no longer identified and appears to been removed. No pneumothorax is identified. There is a small amount of residual subcutaneous emphysema in the right lateral chest wall. There is a patchy infiltrate in the right midlung field. There is left basal atelectasis. Report Dictated on --- Final --- Dictated: 11/07/2020 8:43 am Dictating Physician: MD HUIZAR RISA Signed Date and Time: 11/07/2020 8:44 am Signed by: MD HUIZAR RISA Transcribed Date and Time: 11/07/2020 8:43 [facility] Work Phone: [facility] From [facility] - 11/07/2020 8:45 AM EDT Patient Name: MARGIE FULTON Diagnostic Radiology ACCESSION EXAM DATE/TIME PROCEDURE ORDERING PROVIDER [id number] 11/07/2020 07:57 EDT CR Chest Portable MD HWANG LORNA CPT code 35618 Reason For Exam (CR Chest Portable) s/p R thora Report Portable chest 11/07/2020: Clinical Information: History of right thoracentesis. Findings: A single AP portable view of the chest was obtained at 725 hours. Comparison was made to the prior study prior day. The right-sided PICC line is unchanged. The right-sided chest tube is no longer identified and appears to been removed. No pneumothorax is identified. There is a small amount of residual subcutaneous emphysema in the right lateral chest wall. There is a patchy infiltrate in the right midlung field. There is left basal atelectasis. Report Dictated on --- Final --- Dictated: 11/07/2020 8:43 am Dictating Physician: MD HUIZAR RISA Signed Date and Time: 11/07/2020 8:44 am Signed by: MD HUIZAR RISA Transcribed Date and Time: 11/07/2020 8:43 [facility] Work Phone: Basic Metabolic Panelon -2 Anion gap [Moles/Vol] 7 mmol/L Normal 3-13 [facility] Comment on above: Performed By: #### B MP3M, HEMDF #### [facility] [address] [place], [place] Calcium [Mass/Vol] 8.2 mg/dL Low 8.4-10.4 [facility] Comment on above: Performed By: #### B MP3M, HEMDF #### [address] [address] [place], [place] CO2 [Moles/Vol] 23 mmol/L Normal 22-30 [facility] Comment on above: Performed By: #### B MP3M, HEMDF #### [address] Glucose [Mass/Vol] 151 mg/dL High 70-100 [facility] Comment on above: Performed By: #### B MAICO3Oneyda HEMDF #### [facility] [address] [place], [place] Urea nitrogen [Mass/Vol] 21 mg/dL High 7-20 [facility] Comment on above: Performed By: #### B MP3M, HEMDF #### [facility] [address] [place], [place] Creatinine [Mass/Vol] 0.53 mg/dL Normal 0.52-1.25 [facility] Comment on above: Performed By: #### B MAICO3Oneyda HEMDF #### [address] [address] [place], [place] eGFR OTHER > 90.0 Normal >60 [facility] Comment on above: Result Comment: KDIG O guidelines provide the following GFR categories: Stage GFR(ml/min/1.73 m2) Terms G1 >=90 Normal or high G2 60-89 Mildly decreased* G3a 45-59 Mildly to moderately decreased G3b 30-44 Moderately to severely decreased G4 15-29 Severely decreased G5 <15 Kidney failure *Relative to young adult level. In the absence of evidence of kidney damage, neither GFR category G1 nor G2 fulfill the criteria for CKD. The CKD-EPI equation is validated in individuals 18 years of age and older. Currently the best equation for estimating glomerular filtration rate (GFR) from serum creatinine in children is the Bedside Sibley equation. It is less accurate in patients with extremes of muscle mass, restriction of dietary protein, ingestion of creatine, extra-renal metabolism of creatinine, or treatment with medications that affect renal tubular creatinine secretion. Performed By: #### B MP3M HEMDF #### [facility] [address], [place] GFR/1.73 sq M.predicted among blacks MDRD (S/P/Bld) [Vol rate/Area] mL/min/{1.73_m2} Normal >60 [facility] Comment on above: Performed By: #### B MP3M, HEMDF #### [facility] [address] [place], [place] Potassium [Moles/Vol] 4.1 mmol/L Normal 3.5-5.1 [facility] Comment on above: Performed By: #### B MP3M, HEMDF #### [facility] [address] [place], [place] Sodium [Moles/Vol] 138 mmol/L Normal 135-145 [facility] Comment on above: Performed By: #### B MP3M, HEMDF #### [facility] [address] [place], [place] Basic Metabolic PanelOrdered By: Rajni Hwang on 11-06-2020 Chloride [Moles/Vol] 108 mmol/L High 98-107 [facility] Work Phone: Comment on above: Performed By: #### B MP3M, HEMDF #### [facility] [address] [place], [place] Basic Metabolic Panel w/ Ref song to MGOrdered By: Rajni Hwang on 11-06-2020 Anion gap [Moles/Vol] 7 mmol/L 3 - 13 mmol/L [facility] Work Phone: Calcium [Mass/Vol] 8.2 mg/dL Low 8.4 - 10. 4 mg/dL [facility] Work Phone: CO2 [Moles/Vol] 23 mmol/L 22 - 30 mmol/L [facility] Work Phone: Creatinine [Mass/Vol] 0.53 mg/dL 0.52 - 1.25 mg/dL [facility] Work Phone: EGFR IF NonAfrican Ivorian >90.0 >60 mL/min [facility] Work Phone: Comment on above: KDIGO guidelines pro vide the following GFR categories: Stage GFR(ml/min/1.73 m2) Terms G1 >=90 Normal or high G2 60-89 Mildly decreased* G3a 45-59 Mildly to moderately decreased G3b 30-44 Moderately to severely decreased G4 15-29 Severely decreased G5 <15 Kidney failure *Relative to young adult level. In the absence of evidence of kidney damage, neither GFR category G1 nor G2 fulfill the criteria for CKD. The CKD-EPI equation is validated in individuals 18 years of age and older. Currently the best equation for estimating glomerular filtration rate (GFR) from serum creatinine in children is the Bedside Sibley equation. It is less accurate in patients with extremes of muscle mass, restriction of dietary protein, ingestion of creatine, extra-renal metabolism of creatinine, or treatment with medications that affect renal tubular creatinine secretion. GFR/1.73 sq M.predicted among blacks MDRD (S/P/Bld) [Vol rate/Area] mL/min/{1.73_m2} >60 mL/min [facility] Work Phone: Glucose [Mass/Vol] 151 mg/dL High 70 - 100 mg/dL [facility] Work Phone: Interpretation and review of laboratory results Abnormal [facility] Work Phone: Potassium [Moles/Vol] 4.1 mmol/L 3.5 - 5.1 mmol/L [facility] Work Phone: Sodium [Moles/Vol] 138 mmol/L 135 - 145 mmol/L [facility] Work Phone: Urea nitrogen (BldV) [Mass/Vol] 21 mg/dL High 7 - 20 mg/dL [facility] Work Phone: Test Performed by [facility], [address] [place] [id number] [facility] Work Phone: CBC auto differentialOrdered By: Rajni Hwang on 11-06-2020 Absolute Baso # 0.0 10*3/uL 0.0 - 0.2 10*3/uL [facility] Work Phone: Absolute Neut # 8.9 10*3/uL High 1.8 - 7.0 10*3/uL [facility] Work Phone: Basophils/100 WBC (Bld) 0.3 % 0.0 - 2.0 % [facility] Work Phone: Eosinophils (Bld) [#/Vol] 0.0 10*3/uL 0.0 - 0.5 10*3/uL [facility] Work Phone: Eosinophils/100 WBC (Bld) 0.0 % Low 1.0 - 6.0 % [facility] Work Phone: Granulocytes/100 WBC (Bld) 92.3 % High 40.0 - 80.0 % [employer] Work Phone: 1 Hematocrit (Bld) [Volume fraction] 38.0 % 35.0 - 47.0 % [employer] Work Phone: Hemoglobin.gastrointest inal spec 1 Ql (Stl) 12.7 g/dL 11.7 - 16.0 g/dL [facility] Work Phone: 1 Interpretation and review of laboratory results Abnormal [employer] Work Phone: 1 Lymphocytes (Bld) [#/Vol] 0.4 10*3/uL Low 1.0 - 4.3 10*3/uL [employer] Work Phone: 1 Lymphocytes/100 WBC (Bld) 4.5 % Low 20.0 - 40.0 % [employer] Phone: MCH (RBC) [Entitic mass] 31.7 pg 26.0 - 34.0 pg [employer] Work Phone: MCHC (RBC) [Mass/Vol] 33.3 % 32.0 - 36.0 % [employer] Work Phone: MCV (RBC) [Entitic vol] 95.0 fL 79.0 - 98.0 fL [employer] Work Phone: Monocytes (Bld) [#/Vol] 0.3 10*3/uL 0.0 - 0.8 10*3/uL [employer] Work Phone: 1 22 Monocytes/100 WBC (Bld) 2.9 % 2.0 - 10.0 % [employer] Work Phone: 1 Platelet distribution width (Bld) [Ratio] 13.5 % 11.5 - 14.5 % [employer] Phone: Platelet mean volume (Bld) [Entitic vol] 8.3 fL 7.4 - 10.4 fL [employer] Work Phone: Platelets (Bld) [#/Vol] 202 10*3/uL 140 - 440 10*3/uL [employer] Work Phone: RBC (Bld) [#/Vol] 4.00 10*6/uL 3.80 - 5.2 0 10*6/uL [facility] Work Phone: WBC (Bld) [#/Vol] 9.7 10*3/uL 3.6 - 10.7 10*3/uL [facility] Work Phone: Test Performed by [facility], [address] [place] [id number] [facility] Work Phone: CR Chest Portableon 11-07-19 21 CR Chest Portable Patient Name: MARGIE FULTON Diagnostic Radiology ACCESSION EXAM DATE/TIME PROCEDURE ORDERING PROVIDER [id number] 11/06/2020 06:18 EDT CR Chest Portable MD HWANG LORNA CPT code 80096 Reason For Exam (CR Chest Portable) s/p R thora Report CHEST - PORTABLE: CLINICAL INDICATION: Follow-up for surgery TECHNIQUE: Portable AP COMPARISON: One day ago FINDINGS: Life support devices: Two right chest tubes are noted Heart/Mediastinum: Unchanged Lungs/Pleura: No pneumothorax is noted. Ill-defined increased density is noted in the right lower hemithorax, probably atelectasis. There are scattered reticular opacities throughout the lungs. Costophrenic angles are sharp. Other: Subcutaneous emphysema is noted in the right chest wall. IMPRESSION: Probable increased atelectasis at the right lung base. Report Dictated on Workstation: [id number] Final Dictated: 11/06/2020 6:31 am Dictating Physician: MD COREAS JEFFREY Signed Date and Time: 11/06/2020 6:32 am Signed by: MD COREAS JEFFREY Transcribed Date and Time: 11/06/2020 6:31 Normal [facility] Hemogram w/ Autodiffon 11-06 Abs Baso Cnt 0.0 10*3/uL Normal 0.0-0.2 [facility] Comment on above: Performed By: #### B MP3M, HEMDF #### [facility] [address] [address] Abs Neutrophile Cnt 8.9 10*3/uL High 1.8-7.0 [facility] Comment on above: Performed By: #### Karen NINA3Oneyda HEMDF #### [facility] [address] [place], [place] Basophils/100 WBC (Bld) 0.3 % Normal 0.0-2.0 [facility] Comment on above: Performed By: #### B MP3Oneyda, HEMDF #### [address] [address] [place], [place] Eosinophils (Bld) [#/Vol] 0.0 10*3/uL Normal 0.0-0.5 [facility] Comment on above: Performed By: #### aKren NINA3Oneyda HEMDF #### [address] [address] [place], [place] Eosinophils/100 WBC (Bld) 0.0 % Low 1.0-6.0 [facility] Comment on above: Performed By: #### Karen MP3Oneyda, HEMDF #### [address] [address] [place], [place] Erythrocyte distribution width (RBC) [Ratio] 13.5 % Normal 11.5-14.5 [facility] Comment on above: Performed By: #### Karen NINA3Oneyda, HEMDF #### [address] [address] [place], [place] Granulocytes/100 WBC (Bld) 92.3 % High 40.0-80.0 [facility] Comment on above: Performed By: #### Karen MP3Oneyda, HEMDF #### [address] [address] [place], [place] Hematocrit (Bld) [Volume fraction] 38.0 % Normal 35.0-47.0 [facility] Comment on above: Performed By: #### Karen MP3Oneyda, HEMDF #### [address] [address] [place], [place] Hemoglobin (Bld) [Mass/Vol] 12.7 g/dL Normal 11.7-16.0 [facility] Comment on above: Performed By: #### B MP3Oneyda, HEMDF #### [facility] [address] [place], [place] Lymphocytes (Bld) [#/Vol] 0.4 10*3/uL Low 1.0-4.3 [facility] Comment on above: Performed By: #### B MP3M, HEMDF #### [facility] [address] [place], [place] Lymphocytes/100 WBC (Bld) 4.5 % Low 20.0-40.0 [facility] Comment on above: Performed By: #### B MP3M, HEMDF #### [facility] [address] [place], [place] MCH (RBC) [Entitic mass] 31.7 pg Normal 26.0-34.0 [facility] Comment on above: Performed By: #### B MP3M, HEMDF #### [facility] [address] [place], [place] MCHC 33.3 % Normal 32.0-36.0 [facility] Comment on above: Performed By: #### B MP3M, HEMDF #### [facility] [address] [place], [place] MCV (RBC) [Entitic vol] 95.0 fL Normal 79.0-98.0 [facility] Comment on above: Performed By: #### B MP3M, HEMDF #### [facility] [address] [place], [place] Monocytes (Bld) [#/Vol] 0.3 10*3/uL Normal 0.0-0.8 [facility] Comment on above: Performed By: #### B MP3M, HEMDF #### [facility] [address] [place], [place] Monocytes/100 WBC (Bld) 2.9 % Normal 2.0-10.0 [facility] Comment on above: Performed By: #### B MP3M, HEMDF #### [facility] [address] [place], [place] Platelet mean volume (Bld) [Entitic vol] 8.3 fL Normal 7.4-10.4 [facility] Comment on above: Performed By: #### B MP3M, HEMDF #### [address] [address] [place], [place] Platelets (Bld) [#/Vol] 202 10*3/uL Normal 140-440 [facility] Comment on above: Performed By: #### B MP3M, HEMDF #### [address] [address] [place], [place] RBC (Bld) [#/Vol] 4.00 10*6/uL Normal 3.80-5.20 [facility] Comment on above: Performed By: #### B MP3Oneyda, HEMDF #### [address] [address] [place], [place] WBC (Bld) [#/Vol] 9.7 10*3/uL Normal 3.6-10.7 [facility] Comment on above: Performed By: #### B MP3M, HEMDF #### [address] [address] [place], [place] Leukodepleted Red Cellson Leukodepleted Red Cells Leukodepleted Re d Cells: [id number] released 11/06/20 07:26 JMV Unit Blood Type: O Unit Blood Rh: POS Blood Product Code: AS1 Unit Number: [id number] Unit Status: released Barcoded Unit Number: [id number] Barcoded Product Code: = Barcoded ABO/Rh: =%5100 Unit Expiration: Leukodepleted Red Cells: [id number] released 11/06/20 07:26 JMV Unit Blood Type: O Unit Blood Rh: POS Blood Product Code: AS1 Unit Number: [id number] Unit Status: released Barcoded Unit Number: =[id number] Barcoded Product Code: = Barcoded ABO/Rh: =%5100 Unit Expiration: [id number] Normal [facility] Comment on above: Performed By: #### B MP3M, HEMDF #### [address] [address] [place], [place] XR CHEST PORTABLEOrdered By: Rajni Hwang on 11-06-2020 Patient Name: MARGIE FULTON Diagnostic Radiology ACCESSION EXAM DATE/TIME PROCEDURE ORDERING PROVIDER [id number] 11/06/2020 06:18 EDT CR Chest Portable MD HWANG LORNA CPT code 35034 Reason For Exam (CR Chest Portable) s/p R thora Report CHEST - PORTABLE: CLINICAL INDICATION: Follow-up for surgery TECHNIQUE: Portable AP COMPARISON: One day ago FINDINGS: Life support devices: Two right chest tubes are noted Heart/Mediastinum: Unchanged Lungs/Pleura: No pneumothorax is noted. Ill-defined increased density is noted in the right lower hemithorax, probably atelectasis. There are scattered reticular opacities throughout the lungs. Costophrenic angles are sharp. Other: Subcutaneous emphysema is noted in the right chest wall. IMPRESSION: Probable increased atelectasis at the right lung base. Report Dictated on Workstation: [id number]-[id number] --- Final --- Dictated: 11/06/2020 6:31 am Dictating Physician: MD COREAS JEFFREY Signed Date and Time: 11/06/2020 6:32 am Signed by: MD COREAS JEFFREY Transcribed Date and Time: 11/06/2020 6:31 [facility] Work Phone: [facility] Results From [facility] - 11/06/2020 6:34 AM EDT Patient Name: MARGIE FULTON Diagnostic Radiology ACCESSION EXAM DATE/TIME PROCEDURE ORDERING PROVIDER [id number] 11/06/2020 06:18 EDT CR Chest Portable MD HWANG LORNA CPT code 11560 Reason For Exam (CR Chest Portable) s/p R thora Report CHEST - PORTABLE: CLINICAL INDICATION: Follow-up for surgery TECHNIQUE: Portable AP COMPARISON: One day ago FINDINGS: Life support devices: Two right chest tubes are noted Heart/Mediastinum: Unchanged Lungs/Pleura: No pneumothorax is noted. Ill-defined increased density is noted in the right lower hemithorax, probably atelectasis. There are scattered reticular opacities throughout the lungs. Costophrenic angles are sharp. Other: Subcutaneous emphysema is noted in the right chest wall. IMPRESSION: Probable increased atelectasis at the right lung base. Report Dictated on Workstation: [id number]-[id number] --- Final --- Dictated: 11/06/2020 6:31 am Dictating Physician: MD COREAS JEFFREY Signed Date and Time: 11/06/2020 6:32 am Signed by: MD COREAS JEFFREY Transcribed Date and Time: 11/06/2020 6:31 [facility] Work Phone: Arterial Blood Gaseson 11-05 CO2 [Moles/Vol] 24.5 mmol/L Normal 23.0-27.0 [facility] Comment on above: Performed By: #### A BG #### [address] [address] [place], [place] HCO3 (Bld) [Moles/Vol] 23.4 mmol/L Normal 21.0-25.0 [facility] Comment on above: Performed By: #### A BG #### [address] [address] [place], [place] Hemoglobin (Bld) [Mass/Vol] 12.6 g/dL Normal ScreenOnly [facility] Comment on above: Performed By: #### A BG #### [address] [address] [place], [place] Oxygen (Bld) [Partial pressure] 456.8 mm[Hg] High 80.0-100.0 [facility] Comment on above: Performed By: #### A BG #### [address] [address] [place], [place] Oxygen saturation in Blood 99.2 % Normal 95.0-100.0 [facility] Comment on above: Performed By: #### A BG #### [address] [address] [place], [place] pCO2 37.1 mm[Hg] Normal 35.0-45.0 [facility] Comment on above: Performed By: #### A BG #### [address] pH 7.417 Normal 7.350-7.450 [facility] Comment on above: Performed By: #### A BG #### [facility] [address] [place], [place] Std Base Excess -0.8 mmol/L Normal -3.0-3.0 [facility] Comment on above: Performed By: #### A BG #### [facility] [address] [place], [place] FIO2 No data Normal [facility] Comment on above: Performed By: #### A BG #### [facility] [address] [place], [place] Blood Gas, ArterialOrdered B y: Rosemarie Mckeon on 11-05-2020 Base Excess, Arterial -0.8 mmol/L -3.0 - 3.0 mmol/L [facility] Work Phone: [phone] CO2 [Moles/Vol] 24.5 mmol/L 23.0 - 27.0 mmol/L [facility] Work Phone: [phone] FIO2 Arterial No data [facility] Work Phone: [phone] HCO3 (Bld) [Moles/Vol] 23.4 mmol/L 21.0 - 25.0 mmol/L [employer] Work Phone: Hemoglobin (Bld) [Mass/Vol] 12.6 g/dL ScreenOnly [facility] Work Phone: [phone] Interpretation and review of laboratory results Abnormal [facility] Work Phone: [phone] Oxygen saturation in Blood 99.2 % 95.0 - 100.0 % [facility] Work Phone: pCO2, Arterial 37.1 mm[Hg] 35.0 - 45.0 mm[Hg] [facility] Work Phone: [phone] pH, Arterial 7.417 [facility] Work Phone: pO2, Arterial 456.8 mm[Hg] High 80.0 - 100.0 mm[Hg] [facility] Work Phone: [phone] Test Performed by [facility], [address] [place] [address] [facility] Work Phone: CR Chest Portableon 11-06-19 21 CR Chest Portable Patient Name: MARGIE FULTON Diagnostic Radiology ACCESSION EXAM DATE/TIME PROCEDURE ORDERING PROVIDER [id number] 11/05/2020 19:16 EDT CR Chest Portable MD HWANG LORNA CPT code 67694 Reason For Exam (CR Chest Portable) s/p R thora Report PORTABLE CHEST X-RAY CLINICAL INDICATION: Status post right thoracotomy A portable frontal view of the chest was obtained. COMPARISON: 11/02/2020 FINDINGS: Heart size is within normal limits. Two right-sided chest tubes are now in place. There may be a tiny right apical pneumothorax. Previously noted right apical mass is no longer identified. No focal consolidation is definite seen. There may be a trace left pleural effusion. There are degenerative changes of the spine and the shoulders. IMPRESSION: Two right-sided chest tubes are now in place. There may be a tiny right apical pneumothorax. Previously noted right apical density on the chest x-ray from 11/02/2020 is no longer definitely seen. Report Dictated on Final Dictated: 11/05/2020 7:17 pm Dictating Physician: MD ZAVALA JONATHAN R Signed Date and Time: 11/05/2020 7:20 pm Signed by: MD ZAVALA JONATHAN R Transcribed Date and Time: 11/05/2020 7:17 Normal [facility] Surgical Pathologyon 021 Surgical Pathology [id number] [facility] PATHOLOGY AND LABORATORY MEDICINE [address] [place] [id number] FINAL SURGICAL PATHOLOGY REPORT NAME: MARGIE FULTON : 1940 80 Y F BILLING NO.: [id number] LOCATION: [id number] PROCEDURE 11/05/2020 DATE: SURGEON: ROSEMARIE MCKEON M.D. RECEIVED 11/06/2020 DATE: ATTENDING: ROSEMARIE MCKEON M.D. REPORT DATE: 11/11/2020 COPIES TO: DIAGNOSIS: A. LEVEL 7 LYMPH NODE, EXCISION - ONE LYMPH NODE, NEGATIVE FOR METASTASIS B. LEVEL 10 LYMPH NODE , EXCISION - NEGATIVE FOR METASTASIS C. LEVEL 8 LYMPH NODE #1, EXCISION - FRAGMENT OF PULMONARY TISSUE, NEGATIVE FOR MALIGNANCY. D. LEVEL 8 LYMPH NODE #2, EXCISION - ONE LYMPH NODE, NEGATIVE FOR METASTASIS (0/1) E. LEVEL 9 LYMPH NODE , EXCISION - ONE LYMPH NODE, NEGATIVE FOR METASTASIS (0/1) F. RIGHT LUNG, UPPER LOBE, LOBECTOMY - INFILRATING MODERATELY DIFFERENTIATED ADENOCARCINOMA. MARGINS NEGATIVE. NODES NEGATIVE. Applies To: Part F SPECIMEN Procedure: Lobectomy Specimen Laterality: Right TUMOR Tumor Site: Upper lobe of lung Histologic Type: Invasive adenocarcinoma, acinar predominant Total Tumor Size (size of entire tumor): Greatest Dimension (Centimeters) - 3.5 cm Size of Invasive Component: Greatest Dimension (Centimeters) - 3.5 cm Tumor Focality: Single focus Visceral Pleura Invasion: Present Direct Invasion of Adjacent Structures: Adjacent structures present but not involved Treatment Effect: No known presurgical therapy Lymphovascular Invasion: Not identified MARGINS Margins: All margins are uninvolved by tumor Margins Examined: Bronchial, Vascular Distance of Invasive Carcinoma from Closest Margin (Centimeters): 3.2 cm Closest Margin: Bronchial, Vascular LYMPH NODES Number of Lymph Nodes Involved: 0 Number of Lymph Nodes Examined: 7 Sridhar Stations Examined: 8R: Para-esophageal (below brandy), 9R: Pulmonary ligament, 10R: Hilar, 12R: Lobar, 7: Subcarinal PATHOLOGIC STAGE CLASSIFICATION (pTNM, AJCC 8th Edition) Note: Reporting of pT, pN, and (when applicable) pM categories is based on information available to the pathologist at the time the report is issued. As per the AJCC (Chapter 1, 8th Ed.) it is the managing physician's responsibility to establish the final pathologic stage based upon all pertinent information, including but potentially not limited to this pathology report. Primary Tumor (pT): pT2a Regional Lymph Nodes (pN): pN0 ELECTRICAL WORKER TUMOR BLOCK(S): F10-F13 SMT/SMT Signature> S LISA CARREON M.D. CLINICAL INFORMATION: R91.8 SPECIMEN: (A) LYMPH NODE(S) SPECIMEN (B) LYMPH NODE(S) SPECIMEN (C) LYMPH NODE(S) SPECIMEN (D) LYMPH NODE(S) SPECIMEN (E) LYMPH NODE(S) SPECIMEN (F) LUNG, TOTAL, LOBE, OR SEGMENTAL RESECTION GROSS DESCRIPTION: A. Received in formalin labeled level 7 lymph node are two pieces of dark, hallman, nodular tissue aggregating to 0.5 cm. The specimen is entirely submitted in one cassette. B. Received in formalin labeled level 10 lymph node is one piece of dark, hallman, soft tissue measuring 0.6 cm. The specimen is submitted entirely into one cassette. C. Received in formalin labeled level 8 lymph node #1 is one piece of dark, hallman, soft tissue measuring 0.7 cm. The specimen is submitted entirely into one cassette. D. Received in formalin labeled level 8 lymph node #2 is one piece of dark, hallman, nodular tissue measuring 0.8 cm. The specimen is submitted entirely into one cassette. E. Received in formalin labeled level 9 lymph node is one piece of nodular, dark, hallman tissue measuring 0.4 cm. Specimen is submitted entirely into one cassette. F. Received in formalin labeled right upper lobe is a 170 gram lobectomy measuring 11 x 9 x 2.5 cm. The surface contains a 3 cm, palpably firm, retraction opposite the hilum. This retracted surface is painted black. There are three staple lines converging on to the hilum. Within the parenchyma underlying the retraction there is a 3.5 x 2.5 x 2 cm, firm, discrete, white lesion which abuts the surface and is situated at 3.2 cm from the bronchovascular margin. The bronchovascular margins do not appear involved. The remainder of the parenchyma is unremarkable. Multiple hilar lymph nodes are identified. Senior Javascript Engineer sections of the lesion are submitted. Senior Javascript Engineer sections of the remainder of the specimen are submitted. Cassette summary: 1 - 4 are shaved margin at the staple line; 5 is bronchovascular margin; 6 is multiple hilar lymph nodes; 7 - 16 are customer care representative (more content not included)... Normal [facility] XR CHEST PORTABLEOrdered By: Rajni Hwang on 11-05-2020 Patient Name: MARGIE FULTON Diagnostic Radiology ACCESSION EXAM DATE/TIME PROCEDURE ORDERING PROVIDER [id number] 11/05/2020 19:16 EDT CR Chest Portable MD HWANG LORNA CPT code 06761 Reason For Exam (CR Chest Portable) s/p R thora Report PORTABLE CHEST X-RAY CLINICAL INDICATION: Status post right thoracotomy A portable frontal view of the chest was obtained. COMPARISON: 11/02/2020 FINDINGS: Heart size is within normal limits. Two right-sided chest tubes are now in place. There may be a tiny right apical pneumothorax. Previously noted right apical mass is no longer identified. No focal consolidation is definite seen. There may be a trace left pleural effusion. There are degenerative changes of the spine and the shoulders. IMPRESSION: Two right-sided chest tubes are now in place. There may be a tiny right apical pneumothorax. Previously noted right apical density on the chest x-ray from 11/02/2020 is no longer definitely seen. Report Dictated on --- Final --- Dictated: 11/05/2020 7:17 pm Dictating Physician: MD ZAVALA JONATHAN R Signed Date and Time: 11/05/2020 7:20 pm Signed by: MD ZAVALA JONATHAN R Transcribed Date and Time: 11/05/2020 7:17 [facility] Work Phone: Devan, [facility] Incoming Radiology Results From [facility] - 11/05/2020 7:21 PM EDT Patient Name: MARGIE FULTON Diagnostic Radiology ACCESSION EXAM DATE/TIME PROCEDURE ORDERING PROVIDER [id number] 11/05/2020 19:16 EDT CR Chest Portable MD HWANG LORNA CPT code 50626 Reason For Exam (CR Chest Portable) s/p R thora Report PORTABLE CHEST X-RAY CLINICAL INDICATION: Status post right thoracotomy A portable frontal view of the chest was obtained. COMPARISON: 11/02/2020 FINDINGS: Heart size is within normal limits. Two right-sided chest tubes are now in place. There may be a tiny right apical pneumothorax. Previously noted right apical mass is no longer identified. No focal consolidation is definite seen. There may be a trace left pleural effusion. There are degenerative changes of the spine and the shoulders. IMPRESSION: Two right-sided chest tubes are now in place. There may be a tiny right apical pneumothorax. Previously noted right apical density on the chest x-ray from 11/02/2020 is no longer definitely seen. Report Dictated on --- Final --- Dictated: 11/05/2020 7:17 pm Dictating Physician: MD ZAVALA JONATHAN R Signed Date and Time: 11/05/2020 7:20 pm Signed by: MD ZAVALA JONATHAN R Transcribed Date and Time: 11/05/2020 7:17 [facility] Work Phone: [id number] 11-03-2020 SARS-CoV-2 (COVID-19) RNA JORGE+probe Ql (Unsp spec) SARS-CoV-2 --> Status: F Not Detected. Expected Result: Not Detected _ Real-time, RT-PCR performed on the [employer] System by the [facility] Microbiology Service Negative results do not preclude SARS-CoV-2 infection and should not be used as the sole basis for treatment or other patient management decisions. This assay was developed by [employer] and distributed under an Emergency Use Authorization (EUA) granted by the FDA for the qualitative detection of SARS-CoV-2 nucleic acid. Provider and patient fact sheets can be found at https://www.[facility].gov/medi a/680859/download and https://www.[facility].gov/medi a/546629/download. Expected Result: Not Detected _ Real-time, RT-PCR performed on the [employer] System by the [facility] Microbiology Service Negative results do not preclude SARS-CoV-2 infection and should not be used as the sole basis for treatment or other patient management decisions. This assay was developed by [employer] and distributed under an Emergency Use Authorization (EUA) granted by the FDA for the qualitative detection of SARS-CoV-2 nucleic acid. Provider and patient fact sheets can be found at https://www.[facility].gov/medi a/613327/download and https://www.[facility].gov/medi a/196104/download. Normal [facility] Comment on above: Performed By: #### B MP3M, HEMDF #### [facility] [address] [place] [id number] CR Chest PA/LATon 11-02-2020 CR Chest PA/LAT Patient Name: MARGIE FULTON Diagnostic Radiology ACCESSION EXAM DATE/TIME PROCEDURE ORDERING PROVIDER [id number] 11/02/2020 15:58 EDT CR Chest PA and LAT [id number] MELODY MARTINEZ CPT code 22316 Reason For Exam (CR Chest PA and LAT) preoperative evaluation Report Indication: Lung mass. Frontal and lateral views of the chest were obtained with no prior studies performed at this institution for comparison. A 2.5 cm density is identified in the right lung apex. This is felt to correspond to the known lung mass. Mild chronic appearing interstitial lung changes are visualized. There are no acute infiltrates. The heart is not enlarged. Atherosclerotic calcifications of the thoracic aorta are visualized. The mediastinum and pulmonary vascularity are within normal limits. There are mild degenerative changes of the spine and shoulders. There has been prior cervical fusion. IMPRESSION: 1. 2.5 cm right apical lung mass. The findings were discussed with Melody BURNS at approximately 4:10 PM on 11/02/2020. Report Dictated on Final Dictated: 11/02/2020 4:10 pm Dictating Physician: DO OLIVEIRA ANTHONY Signed Date and Time: 11/02/2020 4:13 pm Signed by: DO OLIVEIRA ANTHONY Transcribed Date and Time: 11/02/2020 4:10 Normal [facility] Comp Metabolic Panelon 11-02 ALT [Catalytic activity/Vol] 20 U/L Normal 0-34 [facility] Comment on above: Result Comment: The ALT test is performed by an updated assay method. Please note that the reference intervals have been changed and are now sex specific. Performed By: #### A DDON #### [facility] [address] [place], [place] Calcium [Mass/Vol] 9.7 mg/dL Normal 8.4-10.4 [facility] Comment on above: Performed By: #### A DDON #### [facility] [address] [place], [place] Glucose [Mass/Vol] 69 mg/dL Low 70-100 [facility] Comment on above: Performed By: #### A DDON #### [facility] [address] [place], [place] ALP [Catalytic activity/Vol] 63 U/L Normal 38-126 [facility] Comment on above: Performed By: #### A DDON #### [facility] [address] [place], [place] Anion gap [Moles/Vol] 10 mmol/L Normal 3-13 [facility] Comment on above: Performed By: #### A DDON #### [facility] [address] [place], [place] AST [Catalytic activity/Vol] 35 U/L Normal 15-46 [facility] Comment on above: Performed By: #### A DDON #### [facility] [address] [place], [place] Bilirubin [Mass/Vol] 0.3 mg/dL Normal 0.2-1.3 [facility] Comment on above: Performed By: #### A DDON #### [facility] [address] [place], [place] CO2 [Moles/Vol] 26 mmol/L Normal 22-30 [facility] Comment on above: Performed By: #### A DDON #### [facility] [address] [place], [place] Creatinine [Mass/Vol] 0.80 mg/dL Normal 0.52-1.25 [facility] Comment on above: Performed By: #### A DDON #### [address] [address] [place], [place] GFR/1.73 sq M.predicted among blacks MDRD (S/P/Bld) [Vol rate/Area] 81.6 mL/min/{1.73_m2} Normal >60 [facility] Comment on above: Performed By: #### A DDON #### [address] [address] [place], [place] GFR/1.73 sq M.predicted among non-blacks MDRD (S/P/Bld) [Vol rate/Area] 70.4 mL/min/{1.73_m2} Normal >60 [facility] Comment on above: Result Comment: KDIG O guidelines provide the following GFR categories: Stage GFR(ml/min/1.73 m2) Terms G1 >=90 Normal or high G2 60-89 Mildly decreased* G3a 45-59 Mildly to moderately decreased G3b 30-44 Moderately to severely decreased G4 15-29 Severely decreased G5 <15 Kidney failure *Relative to young adult level. In the absence of evidence of kidney damage, neither GFR category G1 nor G2 fulfill the criteria for CKD. The CKD-EPI equation is validated in individuals 18 years of age and older. Currently the best equation for estimating glomerular filtration rate (GFR) from serum creatinine in children is the Bedside Sibley equation. It is less accurate in patients with extremes of muscle mass, restriction of dietary protein, ingestion of creatine, extra-renal metabolism of creatinine, or treatment with medications that affect renal tubular creatinine secretion. Performed By: #### A DDON #### [address] [address] [place], [place] Protein [Mass/Vol] 6.7 g/dL Normal 6.3-8.2 [facility] Comment on above: Performed By: #### A DDON #### [facility] [address] [place], [place] Urea nitrogen [Mass/Vol] 34 mg/dL High 7-20 [facility] Comment on above: Performed By: #### A DDON #### [facility] [address] [place] [address] Potassium [Moles/Vol] 4.3 mmol/L Normal 3.5-5.1 [facility] Comment on above: Performed By: #### A DDON #### [address] [address] [place], [place] Sodium [Moles/Vol] 143 mmol/L Normal 135-145 [facility] Comment on above: Performed By: #### A DDON #### [address] [address] [place], [place] Albumin [Mass/Vol] 4.0 g/dL Normal 3.5-5.0 [facility] Comment on above: Performed By: #### A DDON #### [address] [address] [place], [place] Chloride [Moles/Vol] 107 mmol/L Normal 98-107 [facility] Comment on above: Performed By: #### A DDON #### [facility] [address] [place], [place] Hemoglobin A1Con 11-02-2020 Glucose [Mass/Vol] 97 mg/dL Normal [facility] Comment on above: Performed By: #### A DDON #### [address] [address] [place], [place] HbA1c (Bld) [Mass fraction] 5.0 % Normal [facility] Comment on above: Result Comment: Norm al less than 5.7% Prediabetes 5.7% to 6.4% Diabetes 6.5% or higher --HgbA1C levels may not be accurate in patients who have renal disease, received recent blood transfusions, are anemic, or who have dyshemoglobinemia. Performed By: #### A DDON #### [facility] [address] [place] [address] Hemogram w/ Autodiffon 11-02 Abs Baso Cnt 0.0 10*3/uL Normal 0.0-0.2 [facility] Comment on above: Performed By: #### A DDON #### [facility] [address] [place] [address] Abs Neutrophile Cnt 4.3 10*3/uL Normal 1.8-7.0 [facility] Comment on above: Performed By: #### A DDON #### [address] [place] [address] Basophils/100 WBC (Bld) 0.6 % Normal 0.0-2.0 [facility] Comment on above: Performed By: #### A DDON #### [address] [address] [place], [place] Eosinophils (Bld) [#/Vol] 0.2 10*3/uL Normal 0.0-0.5 [facility] Comment on above: Performed By: #### A DDON #### [address] [address] [place], [place] Eosinophils/100 WBC (Bld) 3.0 % Normal 1.0-6.0 [facility] Comment on above: Performed By: #### A DDON #### [address] [address] [place], [place] Erythrocyte distribution width (RBC) [Ratio] 13.7 % Normal 11.5-14.5 [facility] Comment on above: Performed By: #### A DDON #### [address] [place] [address] Granulocytes/100 WBC (Bld) 66.6 % Normal 40.0-80.0 [facility] Comment on above: Performed By: #### A DDON #### [address] [address] [place], [place] Hematocrit (Bld) [Volume fraction] 39.7 % Normal 35.0-47.0 [facility] Comment on above: Performed By: #### A DDON #### [facility] [address] [place] [address] Hemoglobin (Bld) [Mass/Vol] 13.0 g/dL Normal 11.7-16.0 [facility] Comment on above: Performed By: #### A DDON #### [facility] [address] [place] [address] Lymphocytes (Bld) [#/Vol] 1.5 10*3/uL Normal 1.0-4.3 [facility] Comment on above: Performed By: #### A DDON #### [address] [address] [place], [place] Lymphocytes/100 WBC (Bld) 22.9 % Normal 20.0-40.0 [facility] Comment on above: Performed By: #### A DDON #### [address] [address] [place], [place] MCH (RBC) [Entitic mass] 31.9 pg Normal 26.0-34.0 [facility] Comment on above: Performed By: #### A DDON #### [address] [place] [address] MCHC 32.9 % Normal 32.0-36.0 [facility] Comment on above: Performed By: #### A DDON #### [address] [address] [place], [place] MCV (RBC) [Entitic vol] 96.9 fL Normal 79.0-98.0 [facility] Comment on above: Performed By: #### A DDON #### [address] [address] [place], [place] Monocytes (Bld) [#/Vol] 0.4 10*3/uL Normal 0.0-0.8 [facility] Comment on above: Performed By: #### A DDON #### [address] [place], [place] Monocytes/100 WBC (Bld) 6.9 % Normal 2.0-10.0 [facility] Comment on above: Performed By: #### A DDON #### [address] [place] [address] Platelet mean volume (Bld) [Entitic vol] 8.4 fL Normal 7.4-10.4 [facility] Comment on above: Performed By: #### A DDON #### [facility] [address] [place] [address] Platelets (Bld) [#/Vol] 220 10*3/uL Normal 140-440 [facility] Comment on above: Performed By: #### A DDON #### [address] [place] [address] RBC (Bld) [#/Vol] 4.09 10*6/uL Normal 3.80-5.20 [facility] Comment on above: Performed By: #### A DDON #### [address] [place] [address] WBC (Bld) [#/Vol] 6.4 10*3/uL Normal 3.6-10.7 [facility] Comment on above: Performed By: #### A DDON #### [address] [place] [address] Magnesiumon 11-02-2020 Magnesium [Mass/Vol] 2.1 mg/dL Normal 1.6-2.3 [facility] Comment on above: Performed By: #### A DDON #### [address] [place] [address] Staph Aureus Complete Nasalo n 11-02-2020 Staph Aureus Complete Nasal Staph Screen --> Status: F No S. aureus detected. Negative nasal MRSA PCR has a high negative predictive value for MRSA pneumonia. Consider stopping vancomycin if no other clinical indication. Contact Antimicrobial Stewardship for further recommendations. The analytical performance characteristics of this assay have been determined by [facility] in accordance with CLIA regulations. The modifications have not been cleared or approved by the U. S. Food and Drug Administration; however, the FDA has determined that such clearance or approval is not necessary. Negative nasal MRSA PCR has a high negative predictive value for MRSA pneumonia. Consider stopping vancomycin if no other clinical indication. Contact Antimicrobial Stewardship for further recommendations. The analytical performance characteristics of this assay have been [facility] by [email or web address] in accordance with CLIA regulations. The modifications have not been cleared or approved by the U. S. Food and Drug Administration; however, the FDA has determined that such clearance or approval is not necessary. Normal [facility] Comment on above: Performed By: #### B MP3M, HEMDF #### [facility] [address] [place] [address] TS GELon 11-02-2020 TS GEL ABO Group: O Rh, Gel: POS Antibody Screen Gel: NEG Normal [facility] Comment on above: Performed By: #### B MP3M, HEMDF #### [facility] [address] [place] [address] .Auto Diffon 01-22-2020 Ammonia (P) [Mass/Vol] 0.80 10 3/mcL Normal 0.15-1.00 [facility] ([place]) Comment on above: Performed By: #### C BC, ADIFF, ANEU, BMP, GFR #### [address] [address] Basophils (Bld) [#/Vol] 0.00 10 3/mcL Normal 0.00-0.19 [facility] ([place]) Comment on above: Performed By: #### Christine BC, ADIFF, ANEU, BMP, GFR #### [address] [address] Basophils/100 WBC (Bld) 0.4 % Normal 0.0-2.5 [facility] ([place]) Comment on above: Performed By: #### C BC, ADIFF, ANEU, BMP, GFR #### [address] [address] Eosinophils (Bld) [#/Vol] 0.10 10 3/mcL Normal 0.00-0.40 [facility] ([place]) Comment on above: Performed By: #### Christine BC, ADIFF, ANEU, BMP, GFR #### [address] [address] Eosinophils/100 WBC (Bld) 0.4 % Normal 0.0-7.0 [facility] ([place]) Comment on above: Performed By: #### C BC, ADIFF, ANEU, BMP, GFR #### [address] [address] Lymphocytes (Bld) [#/Vol] 0.90 10 3/mcL Normal 0.77-3.85 [facility] ([place]) Comment on above: Performed By: #### C BC, ADIFF, ANEU, BMP, GFR #### [address] [address] Lymphocytes/100 WBC (Bld) 6.5 % Low 10.0-50.0 [facility] ([place] Comment on above: Performed By: #### C BC, ADIFF, ANEU, BMP, GFR #### [address] [address] Monocytes/100 WBC (Bld) 5.7 % Normal 1.7-13.0 [facility] ([place]) Comment on above: Performed By: #### C BC, ADIFF, ANEU, BMP, GFR #### [address] [address] Neutrophils/100 WBC (Bld) 87.0 % High 37.0-80.0 [facility] ([place] Comment on above: Performed By: #### C BC, ADIFF, ANEU, BMP, GFR #### [address] [address] .GFRon 01-22-2020 GFR 83 ml/min/1.73sqm Normal [facility] ([place]) Comment on above: Result Comment: GFR Population mean for , Non- Americans Ages 20-29 = 116 mL/min/1.73 sq.m. Ages 30-39 = 107 mL/min/1.73 sq.m. Ages 40-49 = 99 mL/min/1.73 sq.m. Ages 50-59 = 93 mL/min/1.73 sq.m. Ages 60-69 = 85 mL/min/1.73 sq.m. Ages 70+ = 75 mL/min/1.73 sq.m. Chronic Kidney Disease: Less than 60 mL/min/1.73 square meters End Stage Renal Disease: Less than 15 mL/min/1.73 square meters Performed By: #### B MP, GFR, CBC, ADIFF, ANEU #### [address] [address] GFR Non- 69 ml/min/1.73sqm Normal [facility] ([place]) Comment on above: Result Comment: GFR Population mean for , Non- Americans Ages 20-29 = 116 mL/min/1.73 sq.m. Ages 30-39 = 107 mL/min/1.73 sq.m. Ages 40-49 = 99 mL/min/1.73 sq.m. Ages 50-59 = 93 mL/min/1.73 sq.m. Ages 60-69 = 85 mL/min/1.73 sq.m. Ages 70+ = 75 mL/min/1.73 sq.m. Chronic Kidney Disease: Less than 60 mL/min/1.73 square meters End Stage Renal Disease: Less than 15 mL/min/1.73 square meters Performed By: #### B MP, GFR, CBC, ADIFF, ANEU #### [address] [address] .NEUABSon 01-22-2020 Neutrophils (Bld) [#/Vol] 11.50 10 3/mcL High 2.85-6.16 [facility] ([place] Comment on above: Performed By: #### C BC, ADIFF, ANEU, BMP, GFR #### [address] [address] BMPon 01-22-2020 Calcium [Mass/Vol] 8.6 mg/dL Normal 8.4-10.2 [facility] ([place]) Comment on above: Performed By: #### B MP, GFR, CBC, ADIFF, ANEU #### [address] [address] Chloride [Moles/Vol] 106 mmol/L Normal 98-107 [facility] ([place]) Comment on above: Performed By: #### B MP, GFR, CBC, ADIFF, ANEU #### [address] [address] CO2 [Moles/Vol] 24 mmol/L Normal 23-31 [facility] ([place] Comment on above: Performed By: #### B MP, GFR, CBC, ADIFF, ANEU #### [address] [address] Creatinine [Mass/Vol] 0.81 mg/dL Normal 0.55-1.02 [facility] ([place]) Comment on above: Performed By: #### B MP, GFR, CBC, ADIFF, ANEU #### [address] [address] Electrolyte Balance 11.0 mEq/L Normal [facility] ([place]) Comment on above: Performed By: #### B MP, GFR, CBC, ADIFF, ANEU #### [address] [address] Glucose [Mass/Vol] 110 mg/dL Normal 83-110 [facility] ([place] Comment on above: Performed By: #### B MP, GFR, CBC, ADIFF, ANEU #### [address] [address] Potassium [Moles/Vol] 4.7 mmol/L Normal 3.5-5.1 [facility] ([place] Comment on above: Performed By: #### B MP, GFR, CBC, ADIFF, ANEU #### [address] [address] Sodium [Moles/Vol] 141 mmol/L Normal 136-145 [facility] ([place]) Comment on above: Performed By: #### B MP, GFR, CBC, ADIFF, ANEU #### [address] [address] Urea nitrogen [Mass/Vol] 16 mg/dL Normal 7-18 [facility] ([place] Comment on above: Performed By: #### B MP, GFR, CBC, ADIFF, ANEU #### [address] [address] Urea nitrogen/Creatinine [Mass ratio] 20 ratio Normal 7-27 [facility] ([place] Comment on above: Performed By: #### B MP, GFR, CBC, ADIFF, ANEU #### [address] [address] CBCon 01-22-2020 Erythrocyte distribution width (RBC) [Ratio] 13.1 % Normal 11.5-14.5 [facility] ([place] Comment on above: Performed By: #### C BC, ADIFF, ANEU, BMP, GFR #### [id number] Hematocrit (Bld) [Volume fraction] 36.0 % Low 37.0-47.0 [facility] ([place] Comment on above: Performed By: #### C BC, ADIFF, ANEU, BMP, GFR #### [phone] Hemoglobin (Bld) [Mass/Vol] 12.0 G/dL Normal 12.0-16.0 [facility] ([place] Comment on above: Performed By: #### C BC, ADIFF, ANEU, BMP, GFR #### [address] [address] MCH (RBC) [Entitic mass] 32.3 pg High 27.0-31.2 [facility] ([place] Comment on above: Performed By: #### C BC, ADIFF, ANEU, BMP, GFR #### [id number] MCHC (RBC) [Mass/Vol] 33.3 G/dL Normal 33.0-37.0 [facility] ([place]) Comment on above: Performed By: #### C BC, ADIFF, ANEU, BMP, GFR #### [address] [address] MCV (RBC) [Entitic vol] 97.0 fL High 80.0-94.0 [facility] ([place]) Comment on above: Performed By: #### C BC, ADIFF, ANEU, BMP, GFR #### [id number] Platelet mean volume (Bld) [Entitic vol] 7.8 fL Normal 7.4-10.4 [facility] ([place] Comment on above: Performed By: #### C BC, ADIFF, ANEU, BMP, GFR #### [address] [address] Platelets (Bld) [#/Vol] 214 10 3/mcL Normal 130-400 [facility] ([place] Comment on above: Performed By: #### C BC, ADIFF, ANEU, BMP, GFR #### [address] [address] RBC (Bld) [#/Vol] 3.71 10 6/mcL Low 4.20-5.40 [facility] ([place]) Comment on above: Performed By: #### C BC, ADIFF, ANEU, BMP, GFR #### [address] [address] WBC (Bld) [#/Vol] 13.20 10 3/mcL High 4.60-10.80 [facility] ([place]) Comment on above: Performed By: #### C BC, ADIFF, ANEU, BMP, GFR #### [address] [address] XR KNEE 1 OR 2 VIEWS RIGHTon 01-21-2020 XR KNEE 1 OR 2 VIEWS RIGHT ORIGINAL XR XR KNEE portable AP and crosstable lateral 2 VIEWS RIGHT, CLINICAL STATEMENT: Status Post Arthroplasty , check prosthesis alignment COMPARISON: CT 01/06/2020 FINDINGS: The RIGHT knee joint has been replaced with a prosthesis that show satisfactory alignment. There are expected postoperative changes in the soft tissues. IMPRESSION: Expected postoperative appearance following RIGHT knee replacement surgery. Interpreted By: Phoenix Noyola MD Preliminary Report By: Phoenix Noyola MD Electronically Signed By: Phoenix Noyola MD Dictated Date: 01/21/2020 6:26:30 PM Prelim Date: 01/21/2020 6:26:30 PM Sign Date: 01/21/2020 6:26:51 PM Ordering Provider:Carlos Escobedo [facility] ([place] CT KNEE W/O CONTRAST RIGHTon 01-07-2020 CT KNEE W/O CONTRAST RIGHT ORIGINAL CT KNEE W/O CONTRAST RIGHT CLINICAL STATEMENT: varus deformity COMPARISON: None FINDINGS: This exam was performed according to our departmental dose-optimization program which includes automated exposure control, adjustment of the mA and/or kVp according to patient size and/or use of iterative reconstruction technique where applicable. Survey images of the RIGHT hip: Degenerative changes identified. No aggressive osseous lesion. RIGHT knee: There is no fracture identified. No aggressive osseous lesions seen. A moderate joint effusion is identified. Chondrocalcinosis visualized. Patellar enthesophytes visualized. There is tricompartmental joint space loss and spurring. A Woodward's cyst is identified. Survey images RIGHT ankle: No aggressive osseous lesions identified. IMPRESSION: 1. Moderate degenerative changes in the knee. Chondrocalcinosis. 2. Joint effusion and Woodward's cyst. 3. No aggressive osseous lesions Interpreted By: Amari Boyle MD Preliminary Report By: Amari Boyle MD Electronically Signed By: Amari Boyle MD Dictated Date: 01/07/2020 9:07:00 AM Prelim Date: 01/07/2020 9:07:00 AM Sign Date: 01/07/2020 9:12:11 AM Ordering Provider:Carlos Escobedo [facility] ([place]) .Auto Diffon 01-06-2020 Ammonia (P) [Mass/Vol] 0.40 10 3/mcL Normal 0.15-1.00 [facility] ([place]) Comment on above: Performed By: #### B MP, GFR, CBC, ADIFF, ANEU #### [address] [address] Basophils (Bld) [#/Vol] 0.10 10 3/mcL Normal 0.00-0.19 [facility] ([place] Comment on above: Performed By: #### B MP, GFR, CBC, ADIFF, ANEU #### [address] [address] Basophils/100 WBC (Bld) 1.0 % Normal 0.0-2.5 [facility] ([place]) Comment on above: Performed By: #### B MP, GFR, CBC, ADIFF, ANEU #### [address] [address] Eosinophils (Bld) [#/Vol] 0.20 10 3/mcL Normal 0.00-0.40 [facility] ([place] Comment on above: Performed By: #### B MP, GFR, CBC, ADIFF, ANEU #### [address] [address] Eosinophils/100 WBC (Bld) 2.2 % Normal 0.0-7.0 [facility] ([place] Comment on above: Performed By: #### B MP, GFR, CBC, ADIFF, ANEU #### [address] [address] Lymphocytes (Bld) [#/Vol] 1.80 10 3/mcL Normal 0.77-3.85 [facility] ([place] Comment on above: Performed By: #### B MP, GFR, CBC, ADIFF, ANEU #### [address] [address] Lymphocytes/100 WBC (Bld) 25.5 % Normal 10.0-50.0 [facility] ([place] Comment on above: Performed By: #### B MP, GFR, CBC, ADIFF, ANEU #### [address] [address] Monocytes/100 WBC (Bld) 6.1 % Normal 1.7-13.0 [facility] ([place]) Comment on above: Performed By: #### B MP, GFR, CBC, ADIFF, ANEU #### [address] [address] Neutrophils/100 WBC (Bld) 65.2 % Normal 37.0-80.0 [facility] ([place] Comment on above: Performed By: #### B MP, GFR, CBC, ADIFF, ANEU #### [address] [address] .GFRon 01-06-2020 GFR 94 ml/min/1.73sqm Normal [facility] ([place]) Comment on above: Result Comment: GFR Population mean for , Non- Americans Ages 20-29 = 116 mL/min/1.73 sq.m. Ages 30-39 = 107 mL/min/1.73 sq.m. Ages 40-49 = 99 mL/min/1.73 sq.m. Ages 50-59 = 93 mL/min/1.73 sq.m. Ages 60-69 = 85 mL/min/1.73 sq.m. Ages 70+ = 75 mL/min/1.73 sq.m. Chronic Kidney Disease: Less than 60 mL/min/1.73 square meters End Stage Renal Disease: Less than 15 mL/min/1.73 square meters Performed By: #### B MP, GFR, CBC, ADIFF, ANEU #### [address] [address] GFR Non- 77 ml/min/1.73sqm Normal [facility] ([place]) Comment on above: Result Comment: GFR Population mean for , Non- Americans Ages 20-29 = 116 mL/min/1.73 sq.m. Ages 30-39 = 107 mL/min/1.73 sq.m. Ages 40-49 = 99 mL/min/1.73 sq.m. Ages 50-59 = 93 mL/min/1.73 sq.m. Ages 60-69 = 85 mL/min/1.73 sq.m. Ages 70+ = 75 mL/min/1.73 sq.m. Chronic Kidney Disease: Less than 60 mL/min/1.73 square meters End Stage Renal Disease: Less than 15 mL/min/1.73 square meters Performed By: #### B MP, GFR, CBC, ADIFF, ANEU #### [address] [address] .NEUABSon 01-06-2020 Neutrophils (Bld) [#/Vol] 4.60 10 3/mcL Normal 2.85-6.16 [facility] ([place]) Comment on above: Performed By: #### B MP, GFR, CBC, ADIFF, ANEU #### [address] [address] BMPon 01-06-2020 Calcium [Mass/Vol] 9.2 mg/dL Normal 8.4-10.2 [facility] ([place]) Comment on above: Performed By: #### B MP, GFR, CBC, ADIFF, ANEU #### [address] [address] Chloride [Moles/Vol] 104 mmol/L Normal 98-107 [facility] ([place]) Comment on above: Performed By: #### B MP, GFR, CBC, ADIFF, ANEU #### [address] [address] CO2 [Moles/Vol] 29 mmol/L Normal 23-31 [facility] ([place] Comment on above: Performed By: #### B MP, GFR, CBC, ADIFF, ANEU #### [address] [address] Creatinine [Mass/Vol] 0.73 mg/dL Normal 0.55-1.02 [facility] ([place]) Comment on above: Performed By: #### B MP, GFR, CBC, ADIFF, ANEU #### [address] [address] Electrolyte Balance 8.0 mEq/L Normal [facility] ([place] Comment on above: Performed By: #### B MP, GFR, CBC, ADIFF, ANEU #### [address] [address] Glucose [Mass/Vol] 83 mg/dL Normal 83-110 [facility] ([place]) Comment on above: Performed By: #### B MP, GFR, CBC, ADIFF, ANEU #### [address] [address] Potassium [Moles/Vol] 4.2 mmol/L Normal 3.5-5.1 [facility] ([place]) Comment on above: Performed By: #### B MP, GFR, CBC, ADIFF, ANEU #### [address] [address] Sodium [Moles/Vol] 141 mmol/L Normal 136-145 [facility] ([place]) Comment on above: Performed By: #### B MP, GFR, CBC, ADIFF, ANEU #### [address] [address] Urea nitrogen [Mass/Vol] 28 mg/dL High 7-18 [facility] ([place] Comment on above: Performed By: #### B MP, GFR, CBC, ADIFF, ANEU #### [address] [address] Urea nitrogen/Creatinine [Mass ratio] 38 ratio High 7-27 [facility] ([place] Comment on above: Performed By: #### B MP, GFR, CBC, ADIFF, ANEU #### [address] [address] CBCon 01-06-2020 Erythrocyte distribution width (RBC) [Ratio] 13.0 % Normal 11.5-14.5 [facility] ([place]) Comment on above: Order Comment: Pre-A dmission Testing Performed By: #### B MP, GFR, CBC, ADIFF, ANEU #### [address] [address] Hematocrit (Bld) [Volume fraction] 39.5 % Normal 37.0-47.0 [facility] ([place]) Comment on above: Order Comment: Pre-A dmission Testing Performed By: #### B MP, GFR, CBC, ADIFF, ANEU #### [address] [address] Hemoglobin (Bld) [Mass/Vol] 13.2 G/dL Normal 12.0-16.0 [facility] ([place] Comment on above: Order Comment: Pre-A dmission Testing Performed By: #### B MP, GFR, CBC, ADIFF, ANEU #### [address] [address] MCH (RBC) [Entitic mass] 32.2 pg High 27.0-31.2 [facility] ([place] Comment on above: Order Comment: Pre-A dmission Testing Performed By: #### B MP, GFR, CBC, ADIFF, ANEU #### [address] [address] MCHC (RBC) [Mass/Vol] 33.5 G/dL Normal 33.0-37.0 [facility] ([place]) Comment on above: Order Comment: Pre-A dmission Testing Performed By: #### B MP, GFR, CBC, ADIFF, ANEU #### [address] [address] MCV (RBC) [Entitic vol] 96.2 fL High 80.0-94.0 A [facility] ([place]) Comment on above: Order Comment: Pre-A dmission Testing Performed By: #### B MP, GFR, CBC, ADIFF, ANEU #### [address] [address] Platelet mean volume (Bld) [Entitic vol] 9.4 fL Normal 7.4-10.4 [facility] ([place] Comment on above: Order Comment: Pre-A dmission Testing Performed By: #### B MP, GFR, CBC, ADIFF, ANEU #### [address] [address] Platelets (Bld) [#/Vol] 236 10 3/mcL Normal 130-400 [facility] ([place] Comment on above: Order Comment: Pre-A dmission Testing Performed By: #### B MP, GFR, CBC, ADIFF, ANEU #### [address] [address] RBC (Bld) [#/Vol] 4.11 10 6/mcL Low 4.20-5.40 [facility] ([place]) Comment on above: Order Comment: Pre-A dmission Testing Performed By: #### B MP, GFR, CBC, ADIFF, ANEU #### [address] [address] WBC (Bld) [#/Vol] 7.10 10 3/mcL Normal 4.60-10.80 [facility] ([place]) Comment on above: Order Comment: Pre-A dmission Testing Performed By: #### B MP, GFR, CBC, ADIFF, ANEU #### [address] [address] ANES Parveen 03-28-2019 ANES POST HNO ID: [id number] Author: Nabil Jones Service: Anesthesiology Author Type: Physician Type: Anesthesia PostOp Filed: 03/28/2019 8:04 PM Note Text: POST ANESTHESIA EVALUATION NOTE SERVICE DATE: 03/28/2019 SERVICE TIME: 8:04 PM : 1940 Vitals: 03/28/19 0909 03/28/19 1356 03/28/19 1445 Temp: 37.1 ?C (98.8 ?F) 36 ?C (96.8 ?F) 36.4 ?C (97.5 ?F) 03/28/19 1400 03/28/19 1415 03/28/19 1430 03/28/19 1445 BP: 107/70 118/70 127/78 121/83 03/28/19 1400 03/28/19 1415 03/28/19 1430 03/28/19 1445 Pulse: 80 70 69 76 03/28/19 1400 03/28/19 1415 03/28/19 1430 03/28/19 1445 Resp: 14 12 16 13 03/28/19 1400 03/28/19 1415 03/28/19 1430 03/28/19 1445 SpO2: 100% 100% 99% 97% Validated Vital Signs: Yes POST ANES STATUS: No apparent anesthetic complications. The patient is appropriately hydrated with stable respiratory and cardiovascular status. Patient has safe and adequate airway control. The patient has appropriate pain relief and no significant post operative nausea or vomiting. The patient has achieved baseline mental status. Intra-Operative Events: No Significant Anesthesia Events Further assessment by Anesthesia Service: None Other Remarks: SIGNATURE: Nabil Jones MD PATIENT NAME: Margie Fulton DATE: March 28, 2019 TIME: 8:04 PM PAGER/CONTACT #: [facility] ANES PREOPon 03-28-2019 ANES PREOP HNO ID: [id number] Author: Luis M Littlejohn Service: Anesthesiology Author Type: Physician Type: Anesthesia PreOp Filed: 03/28/2019 9:42 AM Note Text: ANESTHESIOLOGY DAY OF SURGERY NOTE SERVICE DATE: 03/28/2019 SERVICE TIME: 9:41 AM : 1940 Procedure(s) (LRB): POSTERIOR REPAIR (N/A) REMOVE VAGINAL MESH W/ EXPLORATION AND EXCISION OF SURROUNDING TISSUE (N/A) BOTOX INJECTION VIA CYSTOSCOPY (N/A) Surgeon(s): Moni Husain There is no height or weight on file to calculate BMI. Most recent hematocrit and potassium results: No results found for this basename: HCT,HEMATOCRIT,K,POTASSI UM ANES DOS/PREOP NOTE: Vitals: 03/28/19 0909 BP: 115/80 Pulse: 74 Resp: 16 Temp: 37.1 ?C (98.8 ?F) SpO2: 97% ACTIVE PROBLEM LIST Primary Osteoarthritis of First Carpometacarpal Joint of Right Hand Palmar Wrist Ganglion PAST MEDICAL HISTORY Diagnosis Date - Arthritis PAST SURGICAL HISTORY Procedure Laterality Date - PAST SURGICAL HISTORY OF 2014 spinal fusion - PAST SURGICAL HISTORY OF 08/28/2018 bladder suspension surgery - REPAIR ROTATOR CUFF,ACUTE 07/2007 Rotator cuff repair, right FAMILY HISTORY Problem Relation Age of Onset - None Mother - None Father Social History: Social History Tobacco Use - Smoking status: Former Smoker - Smokeless tobacco: Never Used - Tobacco comment: Smoked in High School Substance Use Topics - Alcohol use: Yes Alcohol/week: 7.5 - 10.0 standard drinks Types: 3 - 4 Glasses of Wine (5oz) per week - Drug use: No No current facility-administered medications on file prior to encounter. Current Outpatient Medications on File Prior to Encounter: omeprazole magnesium (PRILOSEC ORAL) Take 40 mg by mouth once daily. rOPINIRole (REQUIP) 1 mg tablet Take 1 mg by mouth daily at bedtime. calcium, elemental, tab Take 1 tablet by mouth twice daily. multivitamin (MULTIPLE VITAMINS) tablet Take 1 tablet by mouth once daily. meloxicam 7.5 mg tablet Take 1 tablet by mouth once daily. simvastatin (ZOCOR) 10 mg tablet Take 10 mg by mouth daily at bedtime. aspirin, enteric coated (ASPIR-81) 81 mg EC tablet Take 1 tablet by mouth once daily. Current Facility-Administered Medications Medication Dose Route Frequency Provider Last Rate Last Dose - lidocaine 10 mg/mL (1 %) 1-2 mg injection (XYLOCAINE) 0.1-0.2 mL INTRADERMAL PRN Moni Husain - lactated ringers infusion 5-30 mL/hr INTRAVENOUS CONTINUOUS Moni Husain - ceFAZolin iv piggyback 2 g in D5W (iso-osmotic) 100 mL (ANCEF) 2 g INTRAVENOUS Pre-Op Once Moni Husain - onabotulinum toxin type A 100 Units injection (BOTOX) 100 Units INTRADERMAL ONCE Moni Husain - NaCl (PF) 0.9% 10 mL injection 10 mL OTHER ONCE Moni Husain Allergies: ALLERGIES No Known Allergies DOS EXAM: Adequate NPO status: Yes Anesthetic risks, benefits, alternatives, personnel and consent discussed: Yes Patient agrees to proceed: Yes Previous Anesthesia: No history of adverse event. Airway Assessment: MP 2; Neck ROM: Full ROM without neurologic symptoms; Airway Evaluation: No significant abnormalities Symptoms of Sleep Apnea: Age over 50 (78 year old) Dentition: Teeth intact Additional Physical Exam: Lungs: Patient health status unchanged since recent history and physical. See history and physical for exam findings. Cardiac: Patient health status unchanged since recent history and physical. See history and physical for exam findings. Additional Pertinent Findings: N/A Blood Products: Not anticipated for this procedure. Anesthetic Plan: General, Standard ASA Monitors Pain Management Plan: Parenteral or Oral ASA Class: 2 Other Medical Problems: None Chronic Beta Nataly medication administered within 24 hours: N/A I have interviewed and examined the patient. I have reviewed the medical record and/or the pre-anesthesia evaluation, pertinent labs, and test results. Significant changes in the patient's condition since the History and Physical, not otherwise documented in primary service progress notes: No This contains updated information obtained within 48 hours of Surgery/Procedure. SIGNATURE: Luis M Littlejohn MD PATIENT NAME: Margie Fulton DATE: March 28, 2019 TIME: 9:41 AM CSN: [id number] Normal [facility] HISTORY PHYSICALon HISTORY PHYSICAL HNO ID: [id number] Author: Rachel Earl Service: Anesthesiology Author Type: Nurse Practitioner Type: HANDP Filed: 03/28/2019 10:34 AM Note Text: HISTORY AND PHYSICAL EXAMINATION SERVICE DATE: 03/28/2019 SERVICE TIME: 10:29 AM PRIMARY CARE PHYSICIAN: Danielle Paige DO REASON FOR VISIT: Margie Fulton is a 78 year old female who is scheduled for....... Procedure(s): POSTERIOR REPAIR (N/A) REMOVE VAGINAL MESH W/ EXPLORATION AND EXCISION OF SURROUNDING TISSUE (N/A) BOTOX INJECTION VIA CYSTOSCOPY (N/A) at the request of Dr. Moni Husain for routine HANDP. The patient has the following: ACTIVE PROBLEM LIST Primary Osteoarthritis of First Carpometacarpal Joint of Right Hand Palmar Wrist Ganglion Subjective CHIEF COMPLAINT: Urine incontinence HPI: Margie Fulton is a 78 year old female that presents with above. She has a history of urine and stool incontinence. She states about a month ago she notice a bulge from her vagina. She denies pain, bleeding or discharge. She states she will occasionally get a pressure or discomfort. She complains of urine frequency and urgency. She has discussed surgery with the surgeon and agreed. PAST MEDICAL HISTORY Diagnosis Date - Arthritis - OAB (overactive bladder) - Rectocele PAST SURGICAL HISTORY Procedure Laterality Date - PAST SURGICAL HISTORY OF 2014 spinal fusion - PAST SURGICAL HISTORY OF 08/28/2018 bladder suspension surgery - REPAIR ROTATOR CUFF,ACUTE 07/2007 Rotator cuff repair, right FAMILY HISTORY Problem Relation Age of Onset - None Mother - None Father SOCIAL HISTORY: Social History Socioeconomic History Marital status: Spouse name: Not on file Number of children: Not on file Years of education: Not on file Highest education level: Not on file Occupational History Not on file Social Needs Financial resource strain: Not on file Food insecurity: Worry: Not on file Inability: Not on file Transportation needs: Medical: Not on file Non-medical: Not on file Tobacco Use Smoking status: Former Smoker Smokeless tobacco: Never Used Tobacco comment: Smoked in High School Substance and Sexual Activity Alcohol use: Yes Alcohol/week: 7.5 - 10.0 standard drinks Types: 3 - 4 Glasses of Wine (5oz) per week Drug use: No Sexual activity: Yes Partners: Male Lifestyle Physical activity: Days per week: Not on file Minutes per session: Not on file Stress: Not on file Relationships Social connections: Talks on phone: Not on file Gets together: Not on file Attends sabianism service: Not on file Active member of club or organization: Not on file Attends meetings of clubs or organizations: Not on file Relationship status: Not on file Intimate partner violence: Fear of current or ex partner: Not on file Emotionally abused: Not on file Physically abused: Not on file Forced sexual activity: Not on file Other Topics Concerns: Not on file Social History Narrative Not on file Prior to Admission medications as of 03/28/19 1024 Medication Sig Last Dose Taking omeprazole magnesium (PRILOSEC ORAL) Take 40 mg by mouth once daily. 03/28/2019 at 0600 Yes rOPINIRole (REQUIP) 1 mg tablet Take 1 mg by mouth daily at bedtime. Yes calcium, elemental, tab Take 1 tablet by mouth twice daily. Yes multivitamin (MULTIPLE VITAMINS) tablet Take 1 tablet by mouth once daily. Yes meloxicam 7.5 mg tablet Take 1 tablet by mouth once daily. Yes simvastatin (ZOCOR) 10 mg tablet Take 10 mg by mouth daily at bedtime. aspirin, enteric coated (ASPIR-81) 81 mg EC tablet Take 1 tablet by mouth once daily. No medication comments found. ALLERGIES No Known Allergies REVIEW OF SYSTEMS: PAIN ASSESSMENT: Pain Pain Level: 0 Pain Assessment (RN/PEDIATRIC SPEECH LANGUAGE PATHOLOGIST): Assessment Tool: Verbal (Numeric Rating or Visual Analog Scale) General: Denies fever, chills, and unexpected weight change. Neuro: Denies dizziness and headaches. Respiratory: Denies SOB or cough Cardiovascular: Denies CP and palpitations. GI: Denies abd pain and N/V/D. : Denies dysuria. CLINICAL INFORMATICS EDUCATOR: Denies abnormal vaginal bleeding. SEE HPI Endocrine: No history of diabetes or thyroid disease Hematology: Denies history of bleeding or clotting disorder. Psych: Denies anxiety/depression. Musculoskeletal: Denies joint pain and swelling. Skin: Denies open sores and rashes. Objective PHYSICAL EXAM: VITALS: BP 115/80 Pulse 74 Temp 98.8 Resp 16 SpO2 97% O2 Therapy: Room Air General: NAD. Cooperative. Skin: Skin is warm, no rashes, and no open sores. HEENT: Normocephalic. Cardiovascular: Normal S1 AND S2. No murmur. Lungs: CTA. No respiratory distress. Abdomen: Soft. Extremities: No edema. Neurological: Alert and oriented to person, place, and time. CLINICAL INFORMATICS EDUCATOR: DEFER TO SURGEON, SEE HPI Diagnostic tests reviewed for today's visit: Lab Value Units Date High Low HB No results within date range. HCT No results within date range. WBC No results within date range. PLT No results within date range. NA No results within date range. K No results within date range. GLUC No results within date range. BUN No results within date range. CREAT No results within date range. PTSEC No results within date range. INR No results within date range. APTT No results within date range. ALT No results within date range. AST No results within date range. TBILI No results within date range. TSH No results within date range. Lab Value Units Date High Low HCGQT No results within date range. UHCG No results within date range. HCG, BODY* No results within date range. Lab Value Units Date High Low ABORHD No results within date range. ABSCREEN No results within date range. No results found for: HBA1C No new labs There is no known pertinent medical condition which may affect basilia-operative course Assessment/Plan Rectocele [N81.6], Overactive bladder [N32.81] PLAN Planned Procedure: Procedure(s): POSTERIOR REPAIR (N/A) REMOVE VAGINAL MESH W/ EXPLORATION AND EXCISION OF SURROUNDING TISSUE (N/A) BOTOX INJECTION VIA CYSTOSCOPY (N/A) Planned Anesthetic: General SIGNATURE: Rachel Earl APRN.CNP PATIENT NAME: Margie Fulton DATE: March 28, 2019 TIME: 10:29 AM PAGER/CONTACT #: [facility] HISTORY PHYSICAL HNO ID: [id number] Author: Moni Husain Service: Urogynecology Author Type: Physician Type: HANDP Filed: 03/28/2019 8:40 AM Note Text: HISTORY AND PHYSICAL EXAMINATION SERVICE DATE: 03/28/2019 SERVICE TIME: 8:40 AM PRIMARY CARE PHYSICIAN: DO Dixie Crowe 78 year old white female here for surgery. FUNCTIONAL STATUS: Independent PAST MEDICAL HISTORY Diagnosis Date - Arthritis PAST SURGICAL HISTORY Procedure Laterality Date - PAST SURGICAL HISTORY OF 2014 spinal fusion - PAST SURGICAL HISTORY OF 08/28/2018 bladder suspension surgery - REPAIR ROTATOR CUFF,ACUTE 07/2007 Rotator cuff repair, right FAMILY HISTORY Problem Relation Age of Onset - None Mother - None Father Social History Tobacco Use - Smoking status: Former Smoker - Smokeless tobacco: Never Used - Tobacco comment: Smoked in High School Substance Use Topics - Alcohol use: Yes Alcohol/week: 7.5 - 10.0 standard drinks Types: 3 - 4 Glasses of Wine (5oz) per week - Drug use: No Medications Prior to Admission: omeprazole magnesium (PRILOSEC ORAL) Take 40 mg by mouth once daily. Disp: Rfl: rOPINIRole (REQUIP) 1 mg tablet Take 1 mg by mouth daily at bedtime. Disp: Rfl: calcium, elemental, tab Take 1 tablet by mouth twice daily. Disp: Rfl: 0 multivitamin (MULTIPLE VITAMINS) tablet Take 1 tablet by mouth once daily. Disp: Rfl: 0 meloxicam 7.5 mg tablet Take 1 tablet by mouth once daily. Disp: 30 tablet Rfl: 0 simvastatin (ZOCOR) 10 mg tablet Take 10 mg by mouth daily at bedtime. Disp: Rfl: aspirin, enteric coated (ASPIR-81) 81 mg EC tablet Take 1 tablet by mouth once daily. Disp: Rfl: 0 ALLERGIES No Known Allergies COMPLETE REVIEW OF SYSTEMS: Review of Systems Constitutional: Negative for chills, fever and unexpected weight change. HENT: Negative for congestion, sinus pressure and sore throat. Eyes: Negative for pain, discharge and visual disturbance. Respiratory: Negative for cough, choking, chest tightness, shortness of breath and dyspnea. Cardiovascular: Negative for chest pain, palpitations and leg swelling. Gastrointestinal: Negative for abdominal distention, abdominal pain, diarrhea, nausea and vomiting. Endocrine: Negative for cold intolerance and heat intolerance. Genitourinary: Negative for difficulty urinating, dysuria and vaginal bleeding. Musculoskeletal: Negative for back pain, myalgias and neck pain. Skin: Negative for rash and wound. Allergic/Immunologic: Negative. Neurological: Negative for dizziness, tremors and seizures. Hematological: Negative for adenopathy and disseminated cancer . Psychiatric/Behavioral: Negative for agitation and suicidal ideas. Objective PHYSICAL EXAM: Physical Exam Constitutional: She is oriented to person, place, and time. She appears well-developed and well-nourished. HENT: Head: Normocephalic and atraumatic. Eyes: Pupils are equal, round, and reactive to light. Conjunctivae and EOM are normal. Neck: Normal range of motion. Neck supple. Pulmonary/Chest: Effort normal. Abdominal: Soft. She exhibits no distension. Musculoskeletal: Normal range of motion. Neurological: She is alert and oriented to person, place, and time. Skin: Skin is warm and dry. Psychiatric: She has a normal mood and affect. Her behavior is normal. Judgment and thought content normal. There were no vitals taken for this visit. There is no height or weight on file to calculate BMI. DATA: Diagnostic tests reviewed for today's visit: Most recent labs and imaging results. Assessment/Plan Active Problems: * No active hospital problems. * Resolved Problems: * No resolved hospital problems. * SIGNATURE: Moni Husain MD PATIENT NAME: Margie Fulton DATE: March 28, 2019 TIME: 8:39 AM PAGER/CONTACT #: [phone] [facility] NURSING PROGon 03-28-2019 NURSING PROG HNO ID: [id number] Author: Catalina (Rn) SATNAM Brenner Service: Nursing Author Type: Registered Nurse Type: Nursing Progress Note Filed: 03/28/2019 3:19 PM Note Text: Patient Voided 400 Urine without difficulty Normal [facility] NURSING PROG HNO ID: [id number] Author: Catalina (Rn) SATNAM Brenner Service: Nursing Author Type: Registered Nurse Type: Nursing Progress Note Filed: 03/28/2019 3:15 PM Note Text: DR Cesar At Bedside with clarification of Discharge orders. Patient Must Void Prior To Discharge home. Patient in bathroom attempting To Void At This Time [facility] OPERATIVE NOon 03-28-2019 OPERATIVE NO HNO ID: [id number] Author: Moni Husain Service: Urogynecology Author Type: Physician Type: Operative Report Filed: 03/28/2019 1:46 PM Note Text: OPERATIVE/PROCEDURE REPORT Surgery/Procedure Date: 03/28/19 Surgeon(s)/Proceduralist (s) and Speech And Language Specialist(s): Surgeon(s): Moni Husain Pre-Op/Pre-Procedure Diagnosis: posterior vaginal wall prolapse, vaginal mesh exposure, overactive bladder Post-Op/Post-Procedure Diagnosis: Same Procedure(s): Procedure(s): POSTERIOR REPAIR REMOVE VAGINAL MESH W/ EXPLORATION AND EXCISION OF SURROUNDING TISSUE BOTOX INJECTION VIA CYSTOSCOPY Anesthesia: LMA Procedure Details: Patient was taken to the operating room where a surgical timeout occurred. The patient was placed in dorsal lithotomy position and prepped and draped in sterile fashion. general anesthesia was initiated. A saucedo catheter was placed in the patients bladder. 100 units of botox was injected in 0.5 cc aliquots divided (10 cc of preservative-free saline used to reconstitute the botox) into the Detrusor muscle while using a 30 degree cystoscope and an injetak needle. All 20 sites were injected just superior to the trigone. Anesthesia was discontinued. All needle, instrument, and sponge counts were correct x 2. The patient was taken to recovery room in stable condition. A .5 cm area of exposed mesh was noted on the anterior vaginal wall. The vaginal epithelium was undermined around the mesh and the mesh was excised sharply. The incision was closed with a running locking 3-O vicryl suture. A self-retaining retractor was used to retract the labia and vagina for adequate visualization and exposure. The vaginal epithelium overlying the posterior vaginal wall was grasped with two Allis clamps, injected with 0.25% Marcaine with epinephrine and a midline incision was made over the herniation of the posterior vaginal wall. The underlying rectovaginal fascia was dissected off the overlying vaginal epithelium until the herniation of the rectovaginal fascia was completely exposed. Hemostasis was achieved with electrosurgical cautery. With placement of a rectal finger, the herniation was repaired in the traditional fashion using imbricating horizontal mattress sutures of 2-O PDS on a CT-1 needle. The most proximal portion of the fashion was attached to the cervix. Once the hernation was completely repaired, the redundant vaginal epithelium was excised and the incision was closed with a running, locking 3-O vicryl suture. Excellent hemostasis was noted. Anesthesia was discontinued. All needle, instrument, and sponge counts were correct x 2. The patient was taken to recovery room in stable condition draining clear urine from her saucedo catheter. Findings: No bladder, urethral or rectal injury. Normal bladder with trabeculations. 0.5 cm of exposed mesh on the anterior vaginal wall. Estimated Blood Loss: 50 mls Specimens: None Implantable Devices: None Drains: Saucedo to PACU Complications: None Condition to PACU: Stable The primary surgeon performed the procedure with assistance. SIGNATURE: Moni Husain MD PATIENT NAME: Margie Fulton DATE: 03/28/19 TIME: 8:40 AM PAGER/CONTACT #: [phone] [facility] HOSPon 03-26-2019 [facility] Patient:Choco Fulton MRN: Height:No patient height recorded for this patient. Weight:No patient weight recorded within the last 30 days. Outpatient Medications as of 03/28/19: omeprazole magnesium (PRILOSEC ORAL) rOPINIRole (REQUIP) 1 mg tablet simvastatin (ZOCOR) 10 mg tablet calcium, elemental, tab multivitamin (MULTIPLE VITAMINS) tablet aspirin, enteric coated (ASPIR-81) 81 mg EC tablet meloxicam 7.5 mg tablet Admission/Clinic Administered Medications as of 03/28/19: lidocaine 10 mg/mL (1 %) 1-2 mg injection (XYLOCAINE) lactated ringers infusion ceFAZolin iv piggyback 2 g in D5W (iso-osmotic) 100 mL (ANCEF) onabotulinum toxin type A 100 Units injection (BOTOX) NaCl (PF) 0.9% 10 mL injection Problem List: Primary osteoarthritis of first carpometacarpal joint of right hand [M18.11] Palmar wrist ganglion [M67.439] Allergies: No Known Allergies Date Verified:03/28/19 Lab Values No results within the last 30 days for the following basenames: K,HCT No progress notes entered within the past 30 days [facility] Work Phone: Vital Signs Date Time Vital Sign Value Performing Clinician Facility 12-12-2024 11:06-0400 Body height 160.[address] Danielle Paige DO Work Phone: [facility] 12-12-2024 11:06-0400 Body mass index (BMI) [Ratio] 23.2 kg/m2 Dr. Danielle Paige DO Work Phone: [facility] 12-12-2024 11:06-0400 Body weight 59.[address] Danielle Paige DO Work Phone: [facility] 12-12-2024 11:06-0400 Diastolic blood pressure 67 mm[Hg] Dr. Danielle Paige DO Work Phone: [facility] 12-12-2024 11:06-0400 Heart rate 76 /min Dr. Danielle Paige DO Work Phone: [facility] 12-12-2024 11:06-0400 Respiratory rate 16 /min Dr. Danielle Paige DO Work Phone: [facility] 12-12-2024 11:06-0400 SaO2% (BldA) [Mass fraction] 93 % Dr. Danielle Paige DO Work Phone: [facility] 12-12-2024 11:06-0400 Systolic blood pressure 100 mm[Hg] Dr. Danielle Paige DO Work Phone: [facility] 12-02-2024 13:24-0400 Body temperature 97.9 [degF] Dr. Danielle Paige DO Work Phone: [facility] 12-02-2024 13:24-0400 Diastolic blood pressure 68 mm[Hg] Dr. Danielle Paige DO Work Phone: [facility] 12-02-2024 13:24-0400 Heart rate 75 /min Dr. Danielle Paige DO Work Phone: [facility] 12-02-2024 13:24-0400 Respiratory rate 16 /min Dr. Danielle Paige DO Work Phone: [facility] 12-02-2024 13:24-0400 SaO2% (BldA) [Mass fraction] 98 % Dr. Danielle Paige DO Work Phone: [facility] 12-02-2024 13:24-0400 Systolic blood pressure 123 mm[Hg] Dr. Danielle Paige DO Work Phone: [facility] 12-02-2024 11:45-0400 Inhaled oxygen flow rate 2 L/min Dr. Danielle Paige DO Work Phone: [facility] 12-02-2024 08:13-0400 Body height 165.[address] Danielle Paige DO Work Phone: [facility] 12-02-2024 08:13-0400 Body mass index (BMI) [Ratio] 22 kg/m2 Dr. Danielle Paige DO Work Phone: [facility] 12-02-2024 08:13-0400 Body weight [address] Danielle Paige DO Work Phone: [facility] 11-18-2024 09:06-0400 Body mass index (BMI) [Ratio] 22.4 kg/m2 Dr. Danielle Paige DO Work Phone: [facility] 11-18-2024 09:06-0400 Body temperature 97.6 [degF] Dr. Danielle Paige DO Work Phone: [facility] 11-18-2024 09:06-0400 Body weight 61.[address] Danielle Paige DO Work Phone: [facility] 11-18-2024 09:06-0400 Diastolic blood pressure 70 mm[Hg] Dr. Danielle Paige DO Work Phone: [facility] 11-18-2024 09:06-0400 Heart rate 74 /min Dr. Danielle Paige DO Work Phone: [facility] 11-18-2024 09:06-0400 Respiratory rate 17 /min Dr. Danielle Paige DO Work Phone: [facility] 11-18-2024 09:06-0400 SaO2% (BldA) [Mass fraction] 97 % Dr. Danielle Paige DO Work Phone: [facility] 11-18-2024 09:06-0400 Systolic blood pressure 110 mm[Hg] Dr. Danielle Paige DO Work Phone: [facility] 11-12-2024 09:07-0400 Body mass index (BMI) [Ratio] 23.8 kg/m2 Dr. Danielle Paige DO Work Phone: [facility] 11-12-2024 09:07-0400 Body weight [address] Danielle Paige DO Work Phone: [facility] 11-12-2024 09:07-0400 Diastolic blood pressure 67 mm[Hg] Dr. Danielle Paige DO Work Phone: [facility] 11-12-2024 09:07-0400 Heart rate 75 /min Dr. Danielle Paige DO Work Phone: [facility] 11-12-2024 09:07-0400 Respiratory rate 16 /min Dr. Danielle Paige DO Work Phone: [facility] 11-12-2024 09:07-0400 SaO2% (BldA) [Mass fraction] 96 % Dr. Danielle Paige DO Work Phone: [facility] 11-12-2024 09:07-0400 Systolic blood pressure 103 mm[Hg] Dr. Daneille Paige DO Work Phone: [facility] 10-18-2024 10:26-0400 Body height 160.[address] Danilele Paige DO Work Phone: [facility] 10-18-2024 10:26-0400 Body mass index (BMI) [Ratio] 23.3 kg/m2 Dr. Danielle Paige DO Work Phone: [facility] 10-18-2024 10:26-0400 Body temperature 97.3 [degF] Dr. Danielle Paige DO Work Phone: [facility] 10-18-2024 10:26-0400 Body weight 59.[address] Danielle Paige DO Work Phone: [facility] 10-18-2024 10:26-0400 Diastolic blood pressure 69 mm[Hg] Dr. Danielle Paige DO Work Phone: [facility] 10-18-2024 10:26-0400 Heart rate 80 /min Dr. Danielle Paige DO Work Phone: [facility] 10-18-2024 10:26-0400 Respiratory rate 16 /min Dr. Danielle Paige DO Work Phone: [facility] 10-18-2024 10:26-0400 SaO2% (BldA) [Mass fraction] 99 % Dr. Danielle Paige DO Work Phone: [facility] 10-18-2024 10:26-0400 Systolic blood pressure 110 mm[Hg] Dr. Danielle Paige DO Work Phone: [facility] 10-17-2024 13:12-0400 Body mass index (BMI) [Ratio] 24 kg/m2 Dr. Danielle Paige DO Work Phone: [facility] 10-17-2024 13:12-0400 Body weight 61.[address] Danielle Paige DO Work Phone: [facility] 10-17-2024 13:12-0400 Diastolic blood pressure 66 mm[Hg] Dr. Danielle Paige DO Work Phone: [facility] 10-17-2024 13:12-0400 Heart rate 83 /min Dr. Danielle Paige DO Work Phone: [facility] 10-17-2024 13:12-0400 Respiratory rate 16 /min Dr. Danielle Paige DO Work Phone: [facility] 10-17-2024 13:12-0400 SaO2% (BldA) [Mass fraction] 96 % Dr. Danielle Paige DO Work Phone: [facility] 10-17-2024 13:12-0400 Systolic blood pressure 101 mm[Hg] Dr. Danielle Paige DO Work Phone: [facility] 10-10-2024 07:53-0400 Body temperature 97.6 [degF] Dr. Danielle Paige DO Work Phone: [facility] 10-10-2024 07:53-0400 Diastolic blood pressure 72 mm[Hg] Dr. Danielle Paige DO Work Phone: [facility] 10-10-2024 07:53-0400 Heart rate 88 /min Dr. Danielle Paige DO Work Phone: [facility] 10-10-2024 07:53-0400 Respiratory rate 16 /min Dr. Danielle Paige DO Work Phone: [facility] 10-10-2024 07:53-0400 SaO2% (BldA) [Mass fraction] 97 % Dr. Danielle Paige DO Work Phone: [facility] 10-10-2024 07:53-0400 Systolic blood pressure 101 mm[Hg] Dr. Danielle Paige DO Work Phone: [facility] 10-10-2024 06:17-0400 Body height 160.[address] Danielle Paige DO Work Phone: [facility] 10-10-2024 06:17-0400 Body mass index (BMI) [Ratio] 24 kg/m2 Dr. Danielle Paige DO Work Phone: [facility] 10-10-2024 06:17-0400 Body weight 61.[address] Danielle Paige DO Work Phone: [facility] 09-05-2024 08:02-0500 Body height 165.[address] Danielle Paige DO Work Phone: [facility] 09-05-2024 08:02-0500 Body mass index (BMI) [Ratio] 22.4 kg/m2 Dr. Danielle Paige DO Work Phone: [facility] 09-05-2024 08:02-0500 Body temperature 97.2 [degF] Dr. Danielle Paige DO Work Phone: [facility] 09-05-2024 08:02-0500 Body weight 61.[address] Danielle Paige DO Work Phone: [facility] 09-05-2024 08:02-0500 Diastolic blood pressure 65 mm[Hg] Dr. Danielle Paige DO Work Phone: [facility] 09-05-2024 08:02-0500 Heart rate 87 /min Dr. Danielle Paige DO Work Phone: [facility] 09-05-2024 08:02-0500 Respiratory rate 18 /min Dr. Danielle Paige DO Work Phone: [facility] 09-05-2024 08:02-0500 SaO2% (BldA) [Mass fraction] 100 % Dr. Danielle Paige DO Work Phone: [facility] 09-05-2024 08:02-0500 Systolic blood pressure 102 mm[Hg] Dr. Danielle Paige DO Work Phone: [facility] 08-27-2024 13:22-0500 Body mass index (BMI) [Ratio] 22.6 kg/m2 Dr. Danielle Paige DO Work Phone: [facility] 08-27-2024 13:22-0500 Body weight 61.[address] Danielle Paige DO Work Phone: [facility] 08-27-2024 13:22-0500 Diastolic blood pressure 70 mm[Hg] Dr. Danielle Paige DO Work Phone: [facility] 08-27-2024 13:22-0500 Heart rate 79 /min Dr. Danielle Paige DO Work Phone: [facility] 08-27-2024 13:22-0500 Respiratory rate 16 /min Dr. Danielle Paige DO Work Phone: [facility] 08-27-2024 13:22-0500 SaO2% (BldA) [Mass fraction] 95 % Dr. Danielle Paige DO Work Phone: [facility] 08-27-2024 13:22-0500 Systolic blood pressure 105 mm[Hg] Dr. Danielle Paige DO Work Phone: [facility] 04-11-2024 11:02-0400 Body height 165.1 cm Vini Maurer MD Work Phone: [facility] 04-11-2024 11:02-0400 Body mass index (BMI) [Ratio] 22.96 kg/m2 Vini Maurer MD Work Phone: [facility] 04-11-2024 11:020400 Body weight 62.6 kg Vini Maurer MD Work Phone: [facility] 04-11-2024 11:02-0400 Diastolic blood pressure 72 mm[Hg] Vini Maurer MD Work Phone: [facility] 04-11-2024 11:020400 Systolic blood pressure 116 mm[Hg] Vini Maurer MD Work Phone: [facility] 10-20-2023 10:130400 Body height 165.[address] Danielle Paige Work Phone: [facility] 10-20-2023 10:13-0400 Body mass index (BMI) [Ratio] 23.3 kg/m2 Dr. Danielle Paige Work Phone: [facility] 10-20-2023 10:13-0400 Body temperature 96.9 [degF] Dr. Danielle Paige Work Phone: [facility] 10-20-2023 10:130400 Body weight 63.[address] Danielle Paige Work Phone: [facility] 10-20-2023 10:13-0400 Diastolic blood pressure 66 mm[Hg] Dr. Danielle Paige Work Phone: [facility] 10-20-2023 10:13-0400 Heart rate 76 /min Dr. Danielle Paige Work Phone: [facility] 10-20-2023 10:13-0400 Respiratory rate 16 /min Dr. Danielel Paige Work Phone: [facility] 10-20-2023 10:13-0400 SaO2% (BldA) [Mass fraction] 98 % Dr. Danielle Paige Work Phone: [facility] 10-20-2023 10:13-0400 Systolic blood pressure 101 mm[Hg] Dr. Danielle Paige Work Phone: [facility] 10-04-2023 12:09-0400 Body height 167.[address] Danielle Paige Work Phone: [facility] 10-04-2023 12:09-0400 Body mass index (BMI) [Ratio] 23.6 kg/m2 Dr. Danielle Paige Work Phone: [facility] 10-04-2023 12:09-0400 Body weight 66.[address] Danielle Paige Work Phone: [facility] 10-04-2023 12:09-0400 Diastolic blood pressure 65 mm[Hg] Dr. Danielle Paige Work Phone: [facility] 10-04-2023 12:09-0400 Heart rate 83 /min Dr. Danielle Paige Work Phone: [facility] 10-04-2023 12:09-0400 Respiratory rate 14 /min Dr. Danielle Paige Work Phone: [facility] 10-04-2023 12:09-0400 Systolic blood pressure 102 mm[Hg] Dr. Danielle Paige Work Phone: [facility] 08-01-2023 08:15-0500 Body height 167.[address] Danielle Paige Work Phone: [facility] 08-01-2023 08:15-0500 Body weight 63.[address] Danielle Paige Work Phone: [facility] 08-01-2023 08:15-0500 Heart rate 106 /min Dr. Danielle Paige Work Phone: [facility] 08-01-2023 08:15-0500 SaO2% (BldA) [Mass fraction] 96 % Dr. Danielle Paige Work Phone: [facility] 07-06-2023 06:49-0500 Body mass index (BMI) [Ratio] 22.9 kg/m2 Dr. Dainelle Paige Work Phone: [facility] 07-06-2023 06:49-0500 Body temperature 97.1 [degF] Dr. Danielle Paige Work Phone: [facility] 07-06-2023 06:49-0500 Body weight 62.[address] Danielle Paige Work Phone: [facility] 07-06-2023 06:49-0500 Diastolic blood pressure 67 mm[Hg] Dr. Danielle Paige Work Phone: [facility] 07-06-2023 06:49-0500 Heart rate 99 /min Dr. Danielle Paige Work Phone: [facility] 07-06-2023 06:49-0500 Respiratory rate 18 /min Dr. Danielle Paige Work Phone: [facility] 07-06-2023 06:49-0500 SaO2% (BldA) [Mass fraction] 96 % Dr. Danielle Paige Work Phone: [facility] 07-06-2023 06:49-0500 Systolic blood pressure 107 mm[Hg] Dr. Danielle Paige Work Phone: [facility] 04-21-2023 11:09-0400 Body height 165.[address] Danielle Paige Work Phone: [facility] 04-21-2023 11:09-0400 Body mass index (BMI) [Ratio] 23.3 kg/m2 Dr. Danielle Paige Work Phone: [facility] 04-21-2023 11:09-0400 Body temperature 97.8 [degF] Dr. Danielle Paige Work Phone: [facility] 04-21-2023 11:09-0400 Body weight 63.[address] Danielle Paige Work Phone: [facility] 04-21-2023 11:09-0400 Diastolic blood pressure 70 mm[Hg] Dr. Danielle Paige Work Phone: [facility] 04-21-2023 11:09-0400 Heart rate 73 /min Dr. Danielle Paige Work Phone: [facility] 04-21-2023 11:09-0400 Respiratory rate 16 /min Dr. Danielle Paige Work Phone: [facility] 04-21-2023 11:09-0400 SaO2% (BldA) [Mass fraction] 98 % Dr. Danielle Paige Work Phone: [facility] 04-21-2023 11:09-0400 Systolic blood pressure 113 mm[Hg] Dr. Danielle Paige Work Phone: [facility] 01-09-2023 07:53-0400 Body height 165.[address] Danielle Paige Work Phone: [facility] 01-09-2023 07:53-0400 Body mass index (BMI) [Ratio] 23.9 kg/m2 Dr. Danielle Paige Work Phone: [facility] 01-09-2023 07:53-0400 Body temperature 97.6 [degF] Dr. Danielle Paige Work Phone: [facility] 01-09-2023 07:53-0400 Body weight 65.[address] Danielle Paige Work Phone: [facility] 01-09-2023 07:53-0400 Diastolic blood pressure 80 mm[Hg] Dr. Danielle Paige Work Phone: [facility] 01-09-2023 07:53-0400 Heart rate 69 /min Dr. Danielle Paige Work Phone: [facility] 01-09-2023 07:53-0400 Respiratory rate 16 /min Dr. Danielle Paige Work Phone: [facility] 01-09-2023 07:53-0400 SaO2% (BldA) [Mass fraction] 99 % Dr. Danielle Paige Work Phone: [facility] 01-09-2023 07:53-0400 Systolic blood pressure 118 mm[Hg] Dr. Danielle Paige Work Phone: [facility] 11-22-2022 10:43-0400 Body mass index (BMI) [Ratio] 23.8 kg/m2 Dr. Danielle Paige Work Phone: [facility] 11-22-2022 10:43-0400 Body temperature 97.2 [degF] Dr. Danielle Paige Work Phone: [facility] 11-22-2022 10:43-0400 Body weight 64.[address] Danielle Paige Work Phone: [facility] 11-22-2022 10:43-0400 Diastolic blood pressure 67 mm[Hg] Dr. Danielle Paige Work Phone: [facility] 11-22-2022 10:43-0400 Heart rate 77 /min Dr. Danielle Paige Work Phone: [facility] 11-22-2022 10:43-0400 Respiratory rate 18 /min Dr. Danielle Paige Work Phone: [facility] 11-22-2022 10:43-0400 SaO2% (BldA) [Mass fraction] 98 % Dr. Danielle Paige Work Phone: [facility] 11-22-2022 10:43-0400 Systolic blood pressure 112 mm[Hg] Dr. Danielle Paige Work Phone: [facility] 10-21-2022 10:46-0400 Body height 165.1 cm [facility] 10-21-2022 10:46-0400 Body mass index (BMI) [Ratio] 23.3 kg/m2 [facility] 10-21-2022 10:46-0400 Body temperature 97.4 [degF] [facility] 10-21-2022 10:46-0400 Body weight 63.5 kg [facility] 10-21-2022 10:46-0400 Diastolic blood pressure 68 mm[Hg] [facility] 10-21-2022 10:46-0400 Heart rate 69 /min [facility] 10-21-2022 10:46-0400 Respiratory rate 16 /min [facility] 10-21-2022 10:46-0400 SaO2% (BldA) [Mass fraction] 96 % [facility] 10-21-2022 10:46-0400 Systolic blood pressure 112 mm[Hg] [facility] 06-02-2022 10:48-0500 Body height 165.[address] Danielle Paige Work Phone: [facility] 06-02-2022 10:48-0500 Body mass index (BMI) [Ratio] 23.9 kg/m2 Dr. Danielle Paige Work Phone: [facility] 06-02-2022 10:48-0500 Body temperature 94.6 [degF] Dr. Danielle Paige Work Phone: [facility] 06-02-2022 10:48-0500 Body weight 65.[address] Danielle Paige Work Phone: [facility] 06-02-2022 10:48-0500 Diastolic blood pressure 66 mm[Hg] Dr. Danielle Paige Work Phone: [facility] 06-02-2022 10:48-0500 Heart rate 76 /min Dr. Danielle Paige Work Phone: [facility] 06-02-2022 10:48-0500 Respiratory rate 16 /min Dr. Danielle Paige Work Phone: [facility] 06-02-2022 10:48-0500 SaO2% (BldA) [Mass fraction] 96 % Dr. Danielle Paige Work Phone: [facility] 06-02-2022 10:48-0500 Systolic blood pressure 98 mm[Hg] Dr. Danielle Paige Work Phone: [facility] 10-22-2021 09:54-0400 Body height 165.1 cm [facility] Work Phone: 10-22-2021 09:54-0400 Body temperature 96.3 [degF] [facility] Work Phone: 10-22-2021 09:54-0400 Diastolic blood pressure 66 mm[Hg] [facility] Work Phone: 10-22-2021 09:54-0400 Heart rate 76 /min [facility] Work Phone: 10-22-2021 09:54-0400 Respiratory rate 16 /min [facility] Work Phone: 10-22-2021 09:54-0400 SaO2% (BldA) [Mass fraction] 98 % [facility] Work Phone: 10-22-2021 09:54-0400 Systolic blood pressure 110 mm[Hg] [facility] Work Phone: 11-09-2020 04:56-0400 Body temperature 97.81 [degF] Rosemarie Mckeon MD Work Phone: [facility] Work Phone: 11-09-2020 04:56-0400 Diastolic blood pressure 79 mm[Hg] Rose[facility] Mckeon MD [facility] Phone: [facility] Work Phone: 11-09-2020 04:56-0400 Heart rate 82 /min Rosemarie Mckeon MD Work Phone: [facility] Work Phone: 11-09-2020 04:56-0400 Respiratory rate 12 /min Rosemarie Mckeon MD Work Phone: [facility] Work Phone: 11-09-2020 04:56-0400 SaO2% (BldA) [Mass fraction] 96 % Rosemarie Mckeon MD Work Phone: [facility] Work Phone: 11-09-2020 04:56-0400 Systolic blood pressure 110 mm[Hg] Rosemarie Mckeon MD Work Phone: [facility] Work Phone: 11-06-2020 00:00-0400 Body mass index (BMI) [Ratio] 24.1 kg/m2 Rosemarie Mckeon MD Work Phone: [facility] Work Phone: 11-06-2020 00:00-0400 Body weight 65.7 kg Rosemarie Mckeon MD Work Phone: [facility] Work Phone: 11-05-2020 23:17-0400 Body height 165.1 cm Rosemarie Mckeon MD Work Phone: [facility] Work Phone: NEGATED: Highlighted [id number] 11:46-0400 BMI (Body Mass Index) 24.29 kg/m2 Estrellita Anderson AT [facility] Work Phone: NEGATED: Highlighted [id number] 11:46-0400 Body weight 63.96 kg Estrellita Anderson AT [facility] Work Phone: NEGATED: Highlighted [id number] 11:46-0400 Body weight 64 kg Estrellita Anderson AT [facility] Work Phone: NEGATED: Highlighted [id number] 11:46-0400 BP Diastolic 70 mm[Hg] Estrellita Anderson AT [facility] Work Phone: NEGATED: Highlighted [id number] 11:46-0400 BP Systolic 102 mm[Hg] Estrellita Anderson AT [facility] Work Phone: NEGATED: Highlighted [id number] 11:46-0400 Height 162.56 cm Estrellita Anderson AT [facility] Work Phone: NEGATED: Highlighted [id number] 11:46-0400 Height 163 cm Estrellita Anderson AT [facility] Work Phone: NEGATED: Highlighted [id number] 11:46-0400 Pulse (Heart Rate) 80 /min Estrellita Anderson AT [facility] Work Phone: Encounters Encounter Date Encounter Type Care Provider Facility Start: 12-16-2024 End: 12-16-[address] Carlos Cnao MD -[facility] Work Phone: Start: 12-16-2024 End: 12-16-[address] Danielle Paige DO Work Phone: [facility] Work Phone: Start: 12-12-2024 End: 12-12-2024 Patient encounter procedure Savanna RAYMUNDO -[facility] Work Phone: Start: 12-12-2024 End: 12-12-[address] Danielle Paige DO Work Phone: [facility] Work Phone: Start: 12-06-2024 Encounter for other preprocedural examination Carlos Cano [facility] Start: 12-02-2024 ambulatory Carlos Cano Facility :[facility] Start: 12-02-2024 Non-patient / Non-visit Dr. Flaquita PAYNE -[facility] Start: 12-02-2024 End: 12-02-2024 Admission to same day surgery center Dr. Carlos Cano MD [facility] Start: 12-02-2024 End: 12-02-[address] Danielle Paige DO Work Phone: [facility] Work Phone: Start: 11-18-2024 End: 11-18-[address] Carlos Cano MD -[facility] Work Phone: Start: 11-18-2024 End: 11-18-2024 ambulatory Carlos Cano Facility:[facility] Start: 11-12-2024 End: 11-12-2024 Patient encounter procedure Savanna OJEDAC -[facility] Work Phone: Start: 11-12-2024 End: 11-12-2024 ambulatory Savanna Gagnon Facility:[facility] Start: 11-11-2024 End: 11-11-2024 Patient encounter procedure Savanna RAYMUNDO -Cat Scan [facility] Work Phone: Start: 11-11-2024 End: 11-11-2024 ambulatory Savanna Gagnon Facility:[facility] Start: 10-18-2024 End: 10-18-[address] Danielle Paige DO -Medical Out Work Phone: Start: 10-18-2024 End: 10-18-[address] Danielle Paige DO Work Phone: [facility] Work Phone: Start: 10-17-2024 End: 10-17-[address] Danielle Paige DO Work Phone: [facility] Work Phone: Start: 10-17-2024 End: 10-17-2024 Patient encounter procedure Savanna RAYMUNDO -Laboratory Work Phone: Start: 10-17-2024 End: 10-17-2024 Patient encounter procedure Savanna Gagnon NP-C -[facility] Work Phone: Start: 10-17-2024 End: 10-17-2024 ambulatory Savanna Gagnon Facility:[facility] Start: 10-17-2024 End: 10-17-2024 ambulatory Savanna Gagnon Facility:[facility] Start: 10-15-2024 End: 10-15-[address] Danielle Paige DO Work Phone: [facility] Work Phone: Start: 10-15-2024 End: 10-15-2024 Patient encounter procedure Savanna RAYMUNDO -MRI - [facility] Work Phone: Start: 10-15-2024 End: 10-15-2024 ambulatory Savanna Gagnon Facility:[facility] Start: 10-10-2024 ambulatory Aron Frank Facility :[facility] Start: 10-10-2024 Non-patient / Non-visit Aron Reena de DO -[facility] Start: 10-10-2024 End: 10-10-2024 Admission to same day surgery center Aronjesus manuel Frank DO -Endoscopy Work Phone: Start: 10-10-2024 End: 10-10-[address] Danielle Paige DO Work Phone: [facility] Work Phone: Start: 10-08-2024 End: 10-08-[address] Danielle Paige DO Work Phone: [facility] Work Phone: Start: 10-08-2024 End: 10-08-2024 Patient encounter procedure Savanna RAYMUNDO -Ultrasound, [facility] Work Phone: Start: 10-08-2024 End: 10-08-2024 ambulatory Savanna Gagnon Facility:[facility] Start: 09-27-2024 End: 09-27-[address] Danielle Paige DO Work Phone: [facility] Work Phone: Start: 09-27-2024 End: 09-27-2024 Patient encounter procedure Savanna RAYMUNDO -Radiology, [facility] Work Phone: Start: 09-27-2024 End: 09-27-2024 ambulatory Savanna Gagnon Facility:[facility] Start: 09-24-2024 End: 09-24-[address] Danielle Paige DO Work Phone: [facility] Work Phone: Start: 09-24-2024 End: 09-24-2024 Patient encounter procedure Savanna Gagnon COSMETICS DEMONSTRATOR-C -Radiology, [facility] Work Phone: Start: 09-23-2024 End: 09-24-[address] Danielle Paige DO Work Phone: [facility] Work Phone: Start: 09-23-2024 End: 09-23-2024 Patient encounter procedure Aron Frank DO -LaboratoryLoren [facility] Start: 09-23-2024 End: 09-23-2024 ambulatory Aron Frank Facility:[facility] Start: 09-05-2024 End: 09-05-2024 Patient encounter procedure Abril Connors COSMETICS DEMONSTRATOR-C -[facility] Work Phone: Start: 09-05-2024 End: 09-05-2024 ambulatory Abril Connors NP Facility:[facility] Start: 08-27-2024 End: 08-27-2024 Patient encounter procedure Savanna Gagnon COSMETICS DEMONSTRATOR-C -[facility] Work Phone: Start: 08-27-2024 End: 08-27-2024 ambulatory Savanna Gagnon Facility:[facility] Start: 08-07-2024 End: 08-07-[address] Danielle Paige DO -Laboratory, Loren Celestin [facility] Start: 08-07-2024 End: 08-07-2024 ambulatory Danielle Paige Facility:[facility] Start: 04-19-2024 End: 04-19-2024 ambulatory Danielle Paige Facility:[facility] Start: 04-11-2024 End: 04-11-2024 Telephone encounter Vini Maurer MD Work Phone: [facility] Comment on above: Care Coordination (B otox) Start: 04-11-2024 End: 04-11-2024 Patient encounter procedure Vini Maurer MD Work Phone: [facility] Comment on above: OAB (overactive blad lai) (Primary Dx) Start: 03-21-2024 End: 03-22-2024 Telephone encounter Vini Maurer MD Work Phone: [facility] Comment on above: Care Coordination (B otox) Start: 02-22-2024 End: 02-22-2024 ambulatory Danielle [facility] Facility:[facility] Start: 01-26-2024 End: 01-26-2024 ambulatory [facility] Facility:[facility] Start: 01-24-2024 End: 01-24-2024 ambulatory Danielle [facility] Facility:[facility] Start: 01-10-2024 End: 01-10-2024 ambulatory Ny BURNS Facility:[facility] Start: 01-09-2024 End: 01-09-2024 ambulatory Catalina Mackeygar Facility:[facility] Start: 01-04-2024 End: 01-04-2024 ambulatory Abril Connors NP Facility:[facility] Start: 11-17-2023 Non-patient / Non-visit Dr. Jasmyne Paige Work Phone: [facility] Work Phone: Start: 11-16-2023 Non-patient / Non-visit Dr. Jasmyne Paige Work Phone: [facility] Start: 11-16-2023 End: 11-16-[address] Danielle Paige Work Phone: [facility] Work Phone: Start: 11-16-2023 End: 11-16-[address] [facility] Start: 11-14-2023 Non-patient / Non-visit Dr. Jasmyne Paige Work Phone: [facility] Work Phone: Start: 11-03-2023 Non-patient / Non-visit Dr. Jasmyne Paige Work Phone: [facility] Start: 11-03-2023 End: 11-03-[address] Danielle Paige Work Phone: [facility] Work Phone: Start: 11-03-2023 End: 11-03-[address] Danielle Paige Work Phone: [facility] Work Phone: Start: 11-02-2023 End: 11-02-[address] Danielle Paige Work Phone: [facility] Work Phone: Start: 11-02-2023 End: 11-02-[address] Danielle Paige Work Phone: [facility]-Laboratory,Futur e Work Phone: Start: 10-20-2023 End: 10-20-[address] Danielle Paige Work Phone: [facility] Work Phone: Start: 10-20-2023 End: 10-20-[address] Danielle Paige Work Phone: [facility] Work Phone: Start: 10-17-2023 End: 10-17-[address] Danielle Paige Work Phone: [facility] Work Phone: Start: 10-17-2023 End: 10-17-[address] Danielle Paige Work Phone: [facility] Work Phone: Start: 10-12-2023 End: 10-12-2023 ambulatory SAVANA LOYD Facility:[facility] Start: 10-04-2023 End: 10-04-[address] Danielle Paige Work Phone: [facility] Work Phone: Start: 10-04-2023 End: 10-04-[address] Danielle Paige Work Phone: [facility]Laboratory Work Phone: Start: 10-04-2023 End: 10-04-[address] Danielle Paige Work Phone: [facility] Work Phone: Start: 08-14-2023 Non-patient / Non-visit Dr. Jasmyne Paige Work Phone: [facility] Work Phone: Start: 08-14-2023 End: 08-14-[address] Danielle Paige Work Phone: [facility] Work Phone: Start: 08-14-2023 End: 08-14-[address] Danielle Paige Work Phone: [facility]Pulmonary Services/Neurology Work Phone: Start: 08-03-2023 Non-patient / Non-visit Dr. Jasmyne Paige Work Phone: [facility] Start: 08-01-2023 End: 08-01-[address] Danielle Paige Work Phone: [facility] Work Phone: Start: 08-01-2023 End: 08-01-[address] [facility] Work [facility] Start: 07-06-2023 End: 07-06-[address] Danielle Paige Work Phone: [facility]-Pulmonary Medicine [facility] Work Phone: Start: 05-05-2023 End: 05-05-[address] Danielle Paige Work Phone: [facility] Work Phone: Start: 05-05-2023 End: 05-05-[address] Danielle Paige Work Phone: [facility] Start: 04-21-2023 End: 04-21-[address] [facility] Start: 04-19-2023 Non-patient / Non-visit Dr. Jasmyne Paige Work Phone: [facility] Start: 04-19-2023 End: 04-19-[address] Daniel[facility] Paige [facility] Work [facility] Start: 03-10-2023 End: 03-10-[address] Danielle Paige Work Phone: [facility] Work Phone: Start: 03-10-2023 End: 03-10-[address] [facility] Start: 01-26-2023 End: 01-26-[address] Danielle Paige Work Phone: [facility] Start: 01-09-2023 End: 01-09-[address] Danielle Paige Work Phone: [facility]-P[facility] Medicine [facility] Work Phone: Start: 11-22-2022 End: 11-22-[address] Danielle Paige Work Phone: [facility]-P[facility] Medicine [facility] Work Phone: Start: 10-21-2022 End: 10-21-2022 ambulatory [facility] Work Phone: Start: 10-21-2022 End: 10-21-2022 Patient encounter procedure [facility] Start: 09-28-2022 End: 09-28-2022 ambulatory [facility] Work Phone: Start: 09-28-2022 End: 09-28-2022 Patient encounter procedure [facility], Specimen Start: 08-24-2022 End: 08-24-[address] Danielle Paige Work Phone: [facility] Work Phone: Start: 08-24-2022 End: 08-24-[address] Danielle Paige Work Phone: [facility]atory, [facility] Start: 06-02-2022 End: 06-02-[address] 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 Danielle Paige DO Work Phone: Start: 11-11-2024 Computed tomography of abdomen and pelvis with contrast Dr. Danielle Paige DO Work Phone: Start: 10-17-[address] Marnie Paige DO Work Phone: Comment on above: Performed at: [facility] [address] [id number] Director: Donny Armendariz PhD, Phone: [phone] Start: 10-17-[address] Ramona Paige DO Work Phone: Comment on above: The atypical pANCA p attern has been observed in asignificant percentage of patients with ulcerative colitis,primary sclerosing cholangitis and autoimmune hepatitis.Performed at: [facility] [address] [id number] Director: Donny Armendariz PhD, Phone: [phone] Start: 10-17-2024 Antibody to centrome re measurement Dr. Danielle Paige DO Work Phone: Comment on above: Test not performed Start: 10-17-2024 Antibody to extracta ble nuclear antigen measurement Dr. Danielle Paige DO Work Phone: Comment on above: Test not performed Start: 10-17-2024 Antibody to SONALI-[address] Danielle Paige DO Work Phone: Comment on above: Test not performed Start: 10-17-2024 Antibody to lupus La protein measurement Dr. Danielle Paige DO Work Phone: Comment on above: Test not performed Start: 10-17-2024 Antibody to SS-A measurement Dr. Danielle Paige DO Work Phone: Comment on above: Test not performed Start: 10-17-[address] Danielle Paige DO Work Phone: Comment on above: Test not performed Start: 10-17-2024 FLOATLIGHT POWDER MIXER antibody measurement Dr. Danielle Paige DO Work Phone: Comment on above: Test not performed Start: 10-15-2024 MRI of abdomen with contrast Dr. Danielle Paige DO Work Phone: Start: 10-10-[address] Danielle Paige DO Work Phone: Start: 10-08-[address] Danielle Paige DO Work Phone: Start: 09-27-2024 X-ray of esophagus w ith double contrast Dr. Danielle Paige DO Work Phone: Start: 09-24-[address] Danielle ayala DO Work Phone: Start: 08-07-[address] Marnie Paige DO Work Phone: Comment on above: Performed at: [place] [id number] Director: Donny Armendariz PhD, Phone: [phone] Start: 08-07-2024 Antibody to centrome re measurement Dr. Danielle Paige DO Work Phone: Comment on above: Test not performed Start: 08-07-2024 Antibody to extracta ble nuclear antigen measurement Dr. Danielle Paige DO Work Phone: Comment on above: Test not performed Start: 08-07-2024 Antibody to SONALI-[address] Danielle Paige DO Work Phone: Comment on above: Test not performed Start: 08-07-2024 Antibody to lupus La protein measurement Dr. Danielle Paige DO Work Phone: Comment on above: Test not performed Start: 08-07-2024 Antibody to SS-A measurement Dr. Danielle Paige DO Work Phone: Comment on above: Test not performed Start: 08-07-[address] Danielle Paige DO Work Phone: Comment on above: Test not performed Start: 08-07-2024 Measurement of renal function Dr. Danielle Paige DO Work Phone: Comment on above: GFR Calc Start: 08-07-[address] Danielle Paige DO Work Phone: Start: 08-07-2024 FLOATLIGHT POWDER MIXER antibody measurement Dr. Danielle Paige DO Work Phone: Comment on above: Test not performed Start: 04-11-2024 Urnls dip stick/tabl et rgnt auto w/o microscopy Vini Maurer MD Work Phone: Start: 11-16-2023 Radionuclide imaging of perfusion of myocardium under exercise stress Dr. Danielle Paige Work Phone: Start: 08-24-2022 Plain chest X-ray Dr. Mima Paige Work Phone: Start: 11-09-2020 Echo tthrc r-t 2d w/ wom-mode compl spec&colr d Brian Obregon MD Work Phone: Start: 11-09-2020 Radiologic exam [...] routine ecg w/le ast 12 lds w/i&r Rosemarie Mckeon MD Work Phone: Start: 11-07-2020 Radiologic [...] Tobacco non-user Rocky Martin MD Work Phone: H/O: surgery H/O hand surgery History of cholecystectomy S/P cholecyste ctomy Dr. Danielle Paige DO Work Phone: Urine culture NEGATED: Highlighted rowStart: 02-05-2019 End: 02-05-2019 Documentation of current medications Estrellita Anderson AT Plan of Treatment Date Care Activity Detail Author Start: 12-02-2024 Anes intraperitoneal upper abdomen w/laps nos ANES IPER UPR ABD NOS [facility] Start: 12-02-2024 Laps surg cholecystectomy w/cholangiography LAPARO CHOLECYSTECTOMY/GRAPH [facility] Start: 12-02-2024 Patient discharge [facility] Start: 11-25-2024 Electrocardiographic procedure [facility] Start: 11-12-2024 Patient referral [facility] Work Phone: Start: 10-17-2024 Cytoplasmic ANCA Screen [facility] Start: 10-17-2024 Mitochondria Ab [Presence] in Serum [facility] Start: 10-17-2024 [facility] Start: 10-16-2024 End: 10-16-2024 Patient encounter procedure 10/16/2024 11:30 AM EDT Office Visit [facility] [address] [place] [address] Moni Husain MD [address] [place] [address] Cysto w/Botox [facility] Comment on above: Cysto w/Botox Start: 10-10-2024 Egd insert guide wire dilator passage esophagus EGD GUIDE WIRE INSERTION [facility] Start: 10-10-2024 Egd transoral biopsy single/multiple EGD BIOPSY SINGLE/MULTIPLE [facility] Start: 10-10-2024 Patient discharge [facility] Start: 10-08-2024 Ultrasonography of abdomen Abdomen Limited [facility] Start: 04-11-2024 End: 04-11-2024 Patient encounter procedure 04/11/2024 11:00 AM EDT Office Visit [facility] [address] [place] [address] Vini Maurer MD [address] [facility] [address] [place] [address] Cysto w/ Botox URO/Gynecology Comment on above: Cysto w/ Botox Start: 03-17-2024 Covid-19 Vaccine ( season) Covid-19 Vaccine ( season) [facility] Start: 03-17-2024 Covid-19 Vaccine ( season) Covid-19 Vaccine ( season) [facility] Start: 03-17-2024 Influenza vaccination Influenza Vaccine (#1) [facility] Start: 11-10-2023 Diabetes Screening Diabetes Screening [facility] Start: 07-17-2023 Advance Directive Discussion Advance Directive Discussion [facility] Start: 03-17-2021 Influenza vaccination Flu vaccine (Season Ended) [facility] Work Phone: Start: 11-24-2020 End: 11-24-2020 Patient encounter procedure 11/24/2020 Office Visit Cardiothoracic Surgery Bobby Hook, CASTING [employer] 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 [address] [place] [address] [phone] CT [facility] Start: 10-14-2020 Annual Wellness Visit (AWV) Annual Wellness Visit (AWV) [facility] Work Phone: Start: 02-05-2019 End: 02-05-2019 Appointment Appointment [facility] Work Phone: Start: 2017 RSV Vaccine (1 - 1-dose 75+ series) RSV Vaccine (1 - 1-dose 75+ series) [facility] Start: 2007 Pneumococcal 65+ years Vaccine (2 of 2 - PPSV23) Pneumococcal 65+ years Vaccine (2 of 2 - PPSV23) [facility] Work Phone: Start: 2007 Screening for osteoporosis Bone Density Screening [facility] Start: 2002 RSV Vaccine (1 - 1-dose 60+ series) RSV Vaccine (1 - 1-dose 60+ series) [facility] Start: 1997 Screening for osteoporosis DEXA (modify frequency per FRAX score) [employer] Work Phone: Start: 1992 Shingles Vaccine (1 of 2) Shingles Vaccine (1 of 2) [facility] Work Phone: Start: 1961 DTaP/Tdap/Td vaccine (1 - Tdap) DTaP/Tdap/Td vaccine (1 - Tdap) [facility] Work Phone: Start: 1961 Urine microalbumin profile DTaP,Tdap,Td Vaccine (1 - Tdap) [facility] Start: 1960 Anxiety Screening Anxiety Screening [facility] Start: 1960 Depression Screening Depression Screening [facility] Start: 1958 COVID-19 Vaccine (1) COVID-19 Vaccine (1) [employer] Work Phone: Start: 1942 Hepatitis C screening Hepatitis C screen [employer] Work Phone: Acapella Acapella Respira tory Care Routine Daily until discontinued starting 11/05/2020 [employer] Work Phone: Comment on above: Daily until discontinued starting 2020 CT Abdomen and Pelvi s W contrast IV [facility] Procedures Routine OAB (overactive bladder) Ordered: 04/11/2024 [facility] Work Phone: Comment on above: Ordered: 04/11/2024 Nebulizer therapy [facility]N Treatment Respiratory Care Routine 0600, 1000, 1400, 1800, 2200 until discontinued starting 11/05/2020 [employer] Work Phone: Comment on above: 0600, 1000, 1400, 1800, 2200 until disco ntinued starting 11/05/2020 Neutrophil cytoplasm ic Ab.classic [Units/volume] in Serum [facility] Nuclear Ab [Presence ] in Serum [facility] Oxygen therapy [[facility] Data Set] Initiate Oxygen Therapy Protocol Respiratory Care Routine Daily until discontinued starting 11/05/2020 [employer] Work Phone: Comment on above: Daily until discontinued starting [address] P-[address] [facility] Patient referral [facility] Work Phone: Radionuclide imaging of perfusion of myocardium under exercise stress [facility] Spirometry panel Incentive david metry RT Respiratory Care Routine Every 2hr while awake until discontinued starting 11/05/2020 [facility] Work Phone: Comment on above: Every 2hr while awake until discontinued starting 11/05/2020 End: 11-05-2020 Surgical Pathology Surgical Pathology Lab Routine Once for 1 Occurrences starting 11/05/2020 until 11/05/2020 [facility] Work Phone: Comment on above: Once for 1 Occurrences starting 11/06/19 until 11/05/2020 Surgical Pathology Surgical Path ology Lab Routine 11/05/2020 5:20 PM EDT [facility] Work Phone: [facility] Immunizations Immunization Date Immunization Notes Care Provider [facility] 05-12-2023 influenza, injectabl e, quadrivalent, preservative free Dr. Danielle Paige Work Phone: [facility] 05-12-2023 influenza virus vaccine, unspecified formulation iVni Maurer MD Work Phone: [facility] 04-15-2016 influenza, injectabl e, quadrivalent, preservative free Dr. Danielle Paige Work Phone: [facility] 04-15-2016 influenza, seasonal, injectable [facility] 05-07-2014 influenza, injectabl e, quadrivalent, preservative free Dr. Danielle Paige Work Phone: [facility] 05-07-2014 influenza, seasonal, injectable [facility] 07-25-2013 Influenza virus vaccine [facility] Payers Date Payer Category Payer Self-pay [id number] 2023 Department [facility] ( and others) [id number] 2020 [employer] ( and others) [id number] 2015 Medicare MEDICARE MEDICAR E A AND B [id number] 2015-Present [phone] [address] [address] [place] [address] Medicare [id number] 2015 Unknown FOR LIFE [id number] 2015-Present [phone] [address] [place] [address] Indemnity [id number] 2015 [employer] ( and others) [id number] 1959 [employer] ( and others) [id number] 1959 Medicare [id number] 1942 Unknown [id number] 2.840.1.361851.3.579.2 .598 Unknown [id number] 2.840.1.125661.3.579.2 .462 Unknown [id number] .840.1.438815.3.579.2 .462 Unknown [id number] .840.1.301008.3.579.2 .462 Unknown [id number] .840.1.507025.3.579.2 .462 Unknown [id number] 2.16840.1.862309.3.579.2 .462 Unknown [id number] 2.16840.1.537098.3.579.2 .462 Unknown [id number] 2.840.1.630318.3.579.2 .462 Unknown [id number] 2.16.840.1.100708.3.579.2 .462 Unknown [id number] 2.16.840.1.061597.3.579.2 .462 Unknown [id number] 2.16.840.1.929935.3.579.2 .462 Unknown [id number] 2.16.840.1.266724.3.579.2 .462 Unknown [id number] 2.16.840.1.140559.3.579.2 .462 Unknown [id number] 2.16.840.1.606817.3.579.2 .462 Unknown [id number] 2.16.840.1.041051.3.579.2 .462 Unknown [id number] 2.16.840.1.832183.3.579.2 .462 Unknown [id number] 2.840.1.367781.3.579.2 .462 Unknown [id number] 2..840.1.263630.3.579.2 .462 Unknown [id number] 2.16.840.1.091149.3.579.2 .462 Unknown [id number] 2.16.840.1.635269.3.579.2 .462 Unknown [id number] 2.16.840.1.313534.3.579.2 .462 Unknown [id number] 2.16.840.1.814416.3.579.2 .462 Unknown [id number] 2.16.840.1.890733.3.579.2 .462 Unknown [id number] 2.16.840.1.909013.3.579.2 .462 Unknown [id number] 2.16.840.1.269760.3.579.2 .462 Unknown [id number] 2.16.840.1.337038.3.579.2 .462 Unknown [id number] 2.16.840.1.446425.3.579.2 .462 Unknown [id number] 2.16.840.1.580247.3.579.2 .462 Social History Date Type Detail Facility Start: 06-04-2021 End: 10-04-2023 Assertion Unknown if ever smoked [facility] Work Phone: Start: 11-06-2020 End: 12-14-2024 Tobacco smoking status NHIS Never smoker [facility] Start: 11-06-2020 End: 10-12-2023 Tobacco use and exposure [facility] Start: 11-06-2020 Alcohol intake Ex-drinker (finding) [facility] Work Phone: Start: 10-14-2020 Alcohol Comment 3-4 X week a g lass of wine [facility] Work Phone: Start: 1940 Sex Assigned At Not on file [employer] Work Phone: Exposure to SARS-CoV-2 (event) Not sure [facility] Start: 1940 Sex Assigned At Female [facility] Start: 10-12-2023 Tobacco smoking status NHIS Ex-smoker [facility] History of tobacco use Current smoker [facility] Start: 10-12-2023 End: 04-11-2024 Alcoholic beverage intake Current drinker of alcohol (finding) [facility] Start: 10-12-2023 End: 04-11-2024 History of Social function [facility] Start: 10-12-2023 End: 04-11-2024 Tobacco use panel [facility] National Score (1-100), lower number is lower risk 35 [facility] Start: 10-12-2023 Tobacco Comment Smoked in High School [facility] Start: 10-03-2024 End: 10-22-2024 Sex Female (finding) [facility] NEGATED: Highlighted row Not [facility] Medical Equipment Procedure Code Equipment Code Equipment Original Text Equipment Identifier Dates Robot-assisted laparoscopic cholecystectomy without cholangiography CLIP,HEMOLOCK MED WEALEJANDRO FDA Start: 12-02-2024 Robot-assisted laparoscopic cholecystectomy without cholangiography CLIP,HEMOLOCK MED WECK FDA Start: 12-02-2024 Robot-assisted laparoscopic cholecystectomy without cholangiography CLIP,HEMOLOSova FDA Start: 12-02-2024 Robot-assisted laparoscopic cholecystectomy without cholangiography CLIP,HEMOLOCK Mingleverse FDA Start: 12-02-2024 Goals Date Patient Goal Desired Activity /State Mental Status Date Assessment Result Facility 12-02-2024 Cognitive function Voice/Name [facility] Work Phone: 10-18-2024 Cognitive function Level Of Cons ciousness Awake;Alert;Appropriate;Follow s Commands [facility] Work Phone: 10-10-2024 Cognitive function Voice/Name [facility] Work Phone: 10-10-2024 Cognitive function Patient Orien tation Person;Place;Time [facility] Work Phone: 10-20-2023 Cognitive function Awake;Alert;A ppropriate;Follow s Commands [facility] Work Phone: 04-21-2023 Cognitive function Awake;Alert;A ppropriate;Follow s Commands [facility] Work Phone: 10-22-2021 Cognitive function Voice/Name [facility] Work Phone: Clinical Notes 11-06-2020 to 12-02-2024 Note Date & Type Note Facility 12-02-2024 Consult note [facility] 12-02-2024 Discharge summary Note Date/Time December 02, 2024 11:06am [facility] Medical Records Department [address] [place] [address] Instructions for Home/Discharge Instructions 12/02/24 1103 MR#: [id number] Acct: [id number] Name: MARGIE FULTON Rep # :[id number] : 1940 84 From: Carlos Cano MD PCP: Dr. Danielle Paige, DO Status:REG [facility] Discharge Instructions Diet Discharge Diet: Light diet - advance as tolerated Activity Discharge Activity: Return to Normal Activity and May Shower May shower in (days): 1 Ice area for (Minutes): 30 Lifting Restrictions: No lifting pushing or pulling more than 20 pounds for 3 to4 weeks Dressing / Incision Call your doctor if your incision/area has: Continuous Slow Oozing, Sudden Increased Bleeding, Increased Pain/ Swelling, Increased Redness, Foul Smelling Discharge and Swelling at the incision site Call your doctor if you observe: Fever of 101 or Higher Cleanse incision/area with: Soap & Water Follow Up Care Please Follow Up With: Carlos Cano MD When: 2 weeks. Please call office to schedule appointment Test Results: Test results from this visit will be discussed in further detail at your follow-up appointment, if applicable. Discharge Plan Admission Primary Reason for Your Visit: Robotic cholecystectomy Attending Provider: Carlos Cano Primary Care Provider: Danielle Paige Instructions Print Language: Tunisian Discharge Orders/Prescriptions Prescriptions: New oxycodone-acetaminophen [Percocet] 5-325 mg tablet 1 tab PO Q8H PRN (Reason: pain) 3 Days Qty: 7 0RF Continued mecobalamin (vitamin B12) 1,000 mcg tablet,chewable 1,000 mcg PO DAILY diltiazem HCl 30 mg tablet 30 mg PO QDAY sulindac 200 mg tablet 200 mg PO BID dicyclomine 10 mg capsule 10 mg PO BID PRN (Reason: abdominal pain) Qty: 30 0RF calcium carbonate-vitamin D3 600 mg-20 mcg (800 unit) tablet 1 tab PO BID denosumab 60 MG/ML syringe 60 mg subcut .Q6 MONTHS Rx Instructions: every 6 months liothyronine [Cytomel] 5 mcg tablet 5 mcg PO DAILY turmeric 400 mg capsule 500 mg PO DAILY cholecalciferol (vitamin D3) [Vitamin D3] 25 mcg (1,000 unit) capsule 125 mcg PO DAILY magnesium 250 mg tablet 400 mg PO DAILY omeprazole 40 mg capsule,delayed release(DR/EC) 40 mg PO BID Other Ambulatory Orders: 12 Lead EKG (Routine) Location: None Selected Ordered By: Dr. Alex Rudolph Referrals / Follow Up: Danielle Paige DO [Primary Care Provider] - Disposition Disposition (needs filled in before D/C Order can be placed): Home, Self Care 12/02/24 1106<Electronically signed by Carlos Cano MD>Carlos Cano MD CC: Dr. Danielle Paige DO ~ Signed [facility] Work Phone: 1(462) 202-308005-19-2025 Consult note Author Juliana Huff [facility] Note Date/Time December 02, 2024 11:03 am [facility] Medical Records Department [address] [place] [address] Anesthesia Postop Eval I 12/02/24 110 MR#: [id number] Acct: [id number] Name: MARGIE FULTON Rep # :[id number] : 1940 84 From: Juliana Huff CRNA PCP: Dr. Danielle Paige, DO Status:REG SDC Y Race: C Location: [place] [address] Anesthesia: Postop Eval I Current Vital Signs Temperature: 97.5 F Pulse Rate: 89 Blood Pressure: 110/63 Respiratory Rate: 20 Pulse Ox: 97 Oxygen Delivery Method: Room Air Assessment Airway patent: Yes Spontaneous unlabored respirations: Yes Mental status: Awake nausea: No Vomiting: No Anesthesia Complication: No Fluid Hydration Crystalloid volume administer (ml): 1,100 Total IV fluid infused: 1,100 Progress Note Anesthesia document: Postop Eval 1 completed: Yes 12/02/241102 <Electronically signed by Juliana moulton CRNA> Date _ Juliana Huff [employer] Cosigner Signature: Date CC: ~ Signed [facility] Work Phone: 1(935) 682-424905-19-2025 History and physical note Author Carlos Cano [facility] Note Date/Time December 02, 2024 9:22a m [facility] Medical Records Department [address] [place] [address] History & Physical Exam 12/02/24 0920 MR#: [id number] Acct: [id number] Name: MARGIE FULTONSA Rep # :[id number] : 1940 84 From: Carlos Cano MD PCP: Dr. Danielle Paige, DO Status:REG [facility] Location: [place] [address]-1 HPI - General General Date of Admission: 12/02/24 Date of Service: 12/02/24 Chief Complaint: Right upper quadrant pain HPI Narrative The patient is an 84-year-old female who is being seen today for right upper quadrant pain and some abnormal imaging regarding her gallbladder. Patient states that she has been having some right upper quadrant pain for some time. She recently underwent an EGD which sounds as though this was unremarkable. Shealso underwent an ultrasound that showed a questionable 2 cm polyp or mass within the gallbladder. This was followed up with an MRI which did not reveal any obvious mass or polyp. Nevertheless she continues to have some periodic right upper quadrant pain. She does state that this sometimes is worse with eating and does radiate around to the back and right shoulder. She presents today for further evaluation and treatment recommendations [facility] Medical History Gallbladder polyp Wears glasses Post-menopausal Cancer Thyroid disease Gastric reflux Non-smoker Shortness of breath on exertion Chronic cough Leg cramps Normal Holter exam History of echocardiogram History of stress test Cardiology follow-up encounter Chest pain RLS (restless legs syndrome) Osteoporosis Arthritis Hyperlipidemia Tachycardia Asthma Lung nodules Home Medications ?Medication ?Instructions ?Recorded ?Last Taken ?Type denosumab 60 mg/mL subcutaneous 60 mg subcut .Q6 MONTH S 04/17/20 Unknown History syringe liothyronine 5 mcg tablet (Cytomel) 5 mcg PO DAILY 01/0612/02/24 History calcium 600 mg (as 1 tab PO BID 09/11/23 Unknow n History carbonate)-vitamin D3 20 mcg (800 unit) tablet mecobalamin (vitamin B12) 1,000 1,000 mcg PO DAILY Unknown History mcg chewable tablet diltiazem HCl 30 mg tablet 30 mg PO QDAY 10/04/2311/14 History sulindac 200 mg tablet 200 mg PO BID 08/26/24 Unkno wn History cholecalciferol (vitamin D3) 25 125 mcg PO DAILY 10/08 Unknown History mcg (1,000 unit) capsule (Vitamin D3) magnesium 250 mg tablet 400 mg PO DAILY 10/08/24 Unk nown History turmeric 400 mg capsule 500 mg PO DAILY 10/18/24 Unk nown History dicyclomine 10 mg capsule 10 mg PO BID PRN abdominal p ain 11/12/24 Unknown Rx #30 caps omeprazole 40 mg capsule,delayed 40 mg PO BID 12/02/24 12/02/24 History release Allergy/AdvReac Type Severity Reaction Status Date / Time No Known Allergies Allergy Verified 12/02/24 08:34 Family History Mother Rheumatoid arthritis Father Rheumatoid arthritis Other Malignant neoplasm determined by biopsy of testicle Surgical History History of esophagogastroduodenoscopy (EGD) History of lobectomy of lung H/O vaginal surgery History of surgery on upper extremity Complete tear of sacrospinous ligament Cataract fragments of eye following cataract surgery History of genitourinary surgery S/P cervical spinal fusion Hx of repair of rotator cuff H/O hand surgery History of total right knee replacement (TKR) Social History Smoking Status: Never smoker alcohol intake: current alcohol intake frequency: a few times a week Alcohol type: wine substance use type: does not use Vital Signs Vital Signs Vital Signs: 12/02/24 08:13 12/02/24 08:13 Temperature 98.7 F Temperature Source Temporal Pulse Rate 83 Respiratory Rate 18 Respiratory Pattern Normal Blood Pressure 114/69 Blood Pressure Mean 84 Blood Pressure Source Monitor Blood Pressure Position Sitting Blood Pressure Location Left Arm Pulse Ox 98 Oxygen Delivery Method Room Air Weight Weight: 132 lb 4.438 oz Body Mass Index (BMI) 22.0 Physical Exam Const alert, oriented x3 and no apparent distress Assessment & Plan Assessment/Plan (1) Abdominal pain: PLAN: Plan Patient is a 4-year-old female with periodic right upper quadrant pain and questionable polyp in the gallbladder. I do feel that her symptoms seem reminiscent of biliary colic and so I have recommended a robotic cholecystectomy. We discussed the details of the planned procedure including risks benefits and alternatives and she wishes to proceed. Surgery began shortly Charges/Coding Visit Charges Inpatient E&M: 23903 Init Hosp L2 12/02/24 0922 <Electronically signed by Carlos Cano MD> Cosigner Signature (if applicable): CC: Dr. Danielle Paige, DO; Dr. Carlos Cano MD~ Signed [facility] Work Phone: 1(176) 323-794405-19-2025 Procedure note [facility] Medical Records Department [address] [place] [address] Operative Report 12/02/24 1106 MR#: [id number] Acct: [id number] Name: MARGIE FULTON Rep # :[id number] : 1940 84 From: Carlos Cano MD PCP: Dr. Danielle Paige DO Status:[facility] Location: [place] [address] Problems Associated Problem List Diagnoses (1) Abnormal US (ultrasound) of abdomen: Procedures Digestive 40xxx-49xxx: 12205 Laparo cholecystectomy/graph Operative Report (Standard) Operative Information Date of Procedure: 12/02/24 Pre-Operative Diagnosis: Biliary colic Post-Operative Diagnosis: Same Surgery/Procedure Performed: Robotic cholecystectomy with ICG cholangiogram plywood layup line back feeder: Yes Public Affairs Manager: Brandi Infante Tasks completed by construction administrative assistant: Closing and Other Additional embalmer assistant?: No Type of Anesthesia: General and Local RN Documented Start/Stop Times: Operation Date: 12/02/24 09:30 Case Time Into Pre-Op 12/02/24 08:02 Out of Pre-Op 12/02/24 09:33 Anesthesia Start 12/02/24 09:38 Into Room 12/02/24 09:38 Procedure Start 12/02/24 09:57 Procedure End 12/02/24 10:47 Anesthesia End 12/02/24 10:52 Out of Room 12/02/24 10:52 Into Recovery 12/02/24 10:55 Procedure Start Time: 09:57 Procedure Stop Time: 10:47 Select all DRAINS/GRAFTS/IMPLANTS that apply: None Special Medications: ICG preop Estimated Blood Loss: 10 mL Specimen collected: Yes Description of specimen(s) removed: Gallbladder Description of surgery: The patient is an 84-year-old female recently seen through the office with periodic right upper quadrant pain, bloating and nausea. She underwent an ultrasound that showed initially concern for a 2 cm polyp in the gallbladder. However, MRI did not indicate a polyp. Her symptoms seem consistent withbiliary colic and so a robotic cholecystectomy was offered to her. We discussedthe details of the plan procedure and she wished to proceed. The patient was brought to the operating today following informed consent. ICG was administeredpreoperatively. She was placed supine on the operative table with arms outstretched and arm boards. A general endotracheal anesthesia was induced. Once asleep her arms were comfortably tucked at her sides. Her abdomen was thenprepped and draped in the usual sterile manner. An 8 mm incision was made just below the umbilicus for which a 5 mm trocar was placed optically. This was placed without incident. Once in place the abdomen is then fully insufflated with CO2 gas. A 5 mm 0 degree scope was inserted. There were no signs of bowelor vascular injury. Next an 8mm trocar was placed on the right side of the abdomen as well as another trocar on the left side ofthe abdomen. Also a fourth trocar was placed in the left upper quadrant. All of these were placed without difficulty and under direct visualization. The original umbilical trocar was switched to an 8mm trocar as well. The patient was then positioned with some head up and rolled to the left. The [employer] robot was then rolled into position and was docked. Once all instruments were in place, the gallbladder was visualized and grasped and reflected in a cephalad direction. There was some adhesions to the undersurface of the gallbladder. These were taken down using electrocautery connected to L-hook. The peritoneum on either side of the gallbladder was then incised again using hook electrocautery. This improved mobility of the gallbladder. This was already quite mobile. It was quite distended and fluid-filled. It did not appear to be thickened. I could not appreciate any obvious stones or masses etc. The infundibulum was then dissected. Cystic duct and cystic artery were both identified.They were dissected out circumferentially. The lower third of the gallbladder if not morewas dissected off of the liver. At this point there were 2 and only 2 structures going to the gallbladder thusestablishing a critical view of safety. ICG was also utilized and confirmed that we had accurately identified the cystic duct. 2 clips were placed proximally on the cystic duct and 1 was placeddistall y. The artery was clipped in a similar manner. Both structures were then transected using electrocautery. After this the gallbladder was then bovied off the undersurface of the liver. Once freed was placed Endobag and brought out through the left sided trocar site. The fascia was then closed using 0 Maxon with the aid of the suture passer/fascial closure device. Hemostasis was excellent. There were no signs of bowel or vascular injury. Theremaining trocars were opened up and insufflation was allowed to escape. Local anesthetic was injected into each of the incisions. The incisions were then closed with 4-0 Vicryl and skin glue. The patient was then awakened from anesthesia and taken to recovery in good condition. Surgical Findings: See operative note Complications Complications: No Admit VTE Documentation VTE Present on Admission: No VTE Mechan Device Prophylaxis: SCD's VTE Pharm Prophylaxis ordered?: No Reason prophylaxis not ordered: Treatment Not Indicated 12/02/24 1117 Cosigner Signature (if applicable): CC: Dr. Danielle Paige DO; Dr. Carlos Cano MD~ Signed [facility]2025 Discharge summary [facility] Medical Records Department [address] [place] [address] Instructions for Home/Discharge Instructions 12/02/24 1103 MR#: [id number] Acct: [id number] Name: MARGIE FULTON Rep # :[id number] : 1940 84 From: Carlos Cano MD PCP: Dr. Danielle Paige DO Status:REG [facility] Discharge Instructions Diet Discharge Diet: Light diet - advance as tolerated Activity Discharge Activity: Return to Normal Activity and May Shower May shower in (days): 1 Ice area for (Minutes): 30 Lifting Restrictions: No lifting pushing or pulling more than 20 pounds for 3 to4 weeks Dressing / Incision Call your doctor if your incision/area has: Continuous Slow Oozing, Sudden Increased Bleeding, Increased Pain/ Swelling, Increased Redness, Foul Smelling Discharge and Swelling at the incision site Call your doctor if you observe: Fever of 101 or Higher Cleanse incision/area with: Soap & Water Follow Up Care Please Follow Up With: Carlos Cano MD When: 2 weeks. Please call office to schedule appointment Test Results: Test results from this visit will be discussed in further detail at your follow- up appointment, if applicable. Discharge Plan Admission Primary Reason for Your Visit: Robotic cholecystectomy Attending Provider: Carlos Cano Primary Care Provider: Danielle Paige Instructions Print Language: Tunisian Discharge Orders/Prescriptions Prescriptions: New oxycodone-acetaminophen [Percocet] 5-325 mg tablet 1 tab PO Q8H PRN (Reason: pain) 3 Days Qty: 7 0RF Continued mecobalamin (vitamin B12) 1,000 mcg tablet,chewable 1,000 mcg PO DAILY diltiazem HCl 30 mg tablet 30 mg PO QDAY sulindac 200 mg tablet 200 mg PO BID dicyclomine 10 mg capsule 10 mg PO BID PRN (Reason: abdominal pain) Qty: 30 0RF calcium carbonate-vitamin D3 600 mg-20 mcg (800 unit) tablet 1 tab PO BID denosumab 60 MG/ML syringe 60 mg subcut .Q6 MONTHS Rx Instructions: every 6 months liothyronine [Cytomel] 5 mcg tablet 5 mcg PO DAILY turmeric 400 mg capsule 500 mg PO DAILY cholecalciferol (vitamin D3) [Vitamin D3] 25 mcg (1,000 unit) capsule 125 mcg PO DAILY magnesium 250 mg tablet 400 mg PO DAILY omeprazole 40 mg capsule,delayed release(DR/EC) 40 mg PO BID Other Ambulatory Orders: 12 Lead EKG (Routine) Location: None Selected Ordered By: Dr. Alex Rudolph Referrals / Follow Up: Danielle Paige DO [Primary Care Provider] - Disposition Disposition (needs filled in before D/C Order can be placed): Home, Self Care 12/02/24 1106Carlos Cano MD CC: Dr. Danielle Paige DO ~ Signed [email or web address] Consult note [facility] Medical Records Department [address] [place] [address] Anesthesia Postop Eval I 12/02/24 1102 MR#: [id number] Acct: [id number] Name: MARGIE FULTON Rep # :[id number] : 1940 84 From: Juliana Huff CRNA PCP: Dr. Danielle Paige DO Status:REG SDC Y Race: C Location: [place] [address] Anesthesia: Postop Eval I Current Vital Signs Temperature: 97.5 F Pulse Rate: 89 Blood Pressure: 110/63 Respiratory Rate: 20 Pulse Ox: 97 Oxygen Delivery Method: Room Air Assessment Airway patent: Yes Spontaneous unlabored respirations: Yes Mental status: Awake nausea: No Vomiting: No Anesthesia Complication: No Fluid Hydration Crystalloid volume administer (ml): 1,100 Total IV fluid infused: 1,100 Progress Note Anesthesia document: Postop Eval 1 completed: Yes 12/02/[address] [employer]> Date _ Juliana DeForeest [employer] Cosigner Signature: Date CC: ~ Signed [email or web address] Consult note Author Duc Muir [facility] Note Date/Time December 02, 2024 8:06a [facility] Medical Records Department [address] [place] [address] Pre-Anesthesia Evaluation 12/02/24 0805 MR#: [id number] Acct: [id number] Name: MARGIE FULTON Rep # :[id number] : 1940 84 From: Duc Muir MD PCP: Dr. Danielle Paige, DO Status:REG SDC Y Race: C Location: [place] [address] ASA Classification* ASA Classification ASA Classification: 2 Assessment & Plan Anesthesia* Anesthesia Assessment Anesthesia Assessment: Discussed sedation and/or anesthesia options, risks, benefits, and alternatives with patient/parents/legal guardian/POA. Questions invited. The patient/parents/legal guardian/POA seems to understand and agrees to proceedwith anesthesia plan. Reviewed the physical assessment, medical history, allergy history and patient home medications list prior to surgery/procedure/anesthetic and documented any changes. Performed airway and anesthesia risk assessments. Anesthesia Type Anesthesia Type: General Anesthesia Focused Assessment* Airway Assessment Mouth opens: >3 cm Mallampati Score: II Focused Labs Anesthesia Preop lab: CBC WBC 4.9 K/mm3 (4.4-11.0) 08/07/24 09:08 08/07/24 RBC 4.19 M/mm3 (4.2-5.4) L 08/07/24 09:08 08/07/24 Hgb 12.6 g/dL (12.0-15.0) 08/07/24 09:08 08/07/24 Hct 40.2 % (37-47) 08/07/24 09:08 08/07/24 Plt Count 289 K/mm3 (150-450) 08/07/24 09:08 08/07/24 CHEMISTRY Potassium 3.8 mmol/L (3.5-5.1) 08/07/24 09:08 08/07/24 Sodium 140 mmol/L (136-145) 08/07/24 09:08 08/07/24 Magnesium 2.2 mg/dL (1.6-2.6) 01/26/23 10:33 01/26/23 BUN 19 mg/dL (7-18) H 08/07/24 09:08 08/07/24 Creatinine 0.81 mg/dL (0.55-1.02) 08/07/24 09:08 08/07/24 Glucose 87 mg/dL (74-106) 08/07/24 09:08 08/07/24 TSH 1.860 uIU/mL (0.300-4.200) 11/26/24 13:00 11/14 10/08 COAG PT 12.6 SECONDS (11.7-14.9) 08/18/20 13:37 Pre-Assessment Diagnosis/Proposed Procedure Planned Operative Procedure(s): (N/A) Robotic Cholecystectomy Anesthesia History Anesthesia History - clinical services director: Anesthesia History - clinical services director Hx Hospitalization No 11/25/24 09:33 Any Problems With Anesthesia No 11/25/24 09:33 Cholinesterase deficiency No 11/25/24 09:33 You/Your Family Experience No 11/25/24 09:33 fever (hyperthermia) with Relationship Recent Exposure to Contagious No 10/10/24 06:17 Disease Does patient have nerve No 11/25/24 09:33 stimulator Patient instructed to have device shut off --Does patient have Pacemaker or ICD? When Was Last Pacemaker Check QUESTION #4 FULL TEXT: You/Your Family Experience fever (hyperthermia) with Anesthesia Last Oral Intake Last Oral intake: Last Oral Intake NPO since Meds taken in AM with sips of water? Meds patient instructed to take am of surgery PONV PONV - clinical services director: PONV - clinical services director Female Yes 11/25/24 09:33 HX of Motion Sickness No 11/25/24 09:33 HX of N/V After Surgery No 11/25/24 09:33 Non-Smoker Yes 11/25/24 09:33 Duration of Surgery greater Yes 11/25/24 09:33 than 60 minutes Number of Risk Factors 3 11/25/24 09:33 PONV Score Moderate Risk 11/25/24 09:33 Height & Weight Height & Weight: Anesthesia: Height & Weight Height 5 ft 5 in 11/29/24 08:55 Weight: 61.235 kg 11/29/24 08:55 Respiratory Assessment Respiratory Assessment - clinical services director: Respiratory Tract Infection Hx - clinical services director Hx Respiratory Tract Infection Yes: Patient has a chronic 11/25/24 09:33 cough. Nothing acute. STOP Sleep Apnea STOP Sleep Apnea - clinical services director: STOP Sleep Apnea - clinical services director Hx Hypertension No 11/25/24 09:33 Hx Sleep Apnea No 11/25/24 09:33 CPAP No 11/25/24 09:33 BIPAP No 11/25/24 09:33 Do you snore loudly (louder No 11/25/24 09:33 than talking or can be heard Do you often feel tired/ No 11/25/24 09:33 fatigued/ sleepy during daytime? Has anyone observed you stop No 11/25/24 09:33 breathing during sleep? STOP Results Negative 11/25/24 09:33 QUESTION #5 FULL TEXT : Do you snore loudly (louder than talking or can be heard through closed doors)? Tobacco Use History Tobacco Use History - clinical services director: Tobacco Use History - clinical services director Tobacco Use Smoking Status Never smoker 11/25/24 09:33 Hx Tobacco Use No 11/25/24 09:33 Years Smoking Packs Smoked per Day Smoking Cessation Date was within the last 15 years Hx Smoking Cessation Date Hx Smoking Cessation Counseling Hematologic Medial History Hematologic Hx - clinical services director: Hematologic Medical Hx - community service representative Hx of Blood Transfusion Yes 11/25/24 09:33 Hx of Transfusion in last 3 No 11/25/24 09:33 Months Date of Last Transfusion (if within last 3 months) Ever experience any problems No 11/25/24 09:33 with transfusion(s)? Specify any problems Hx of Preganancy in last 3 N/A 11/25/24 09:33 Months Nurse Filling Out Transfusion NBUCHER 11/25/24 09:33 & Questions: Date: 11/25/24 11/25/24 09:33 Time: 09:11/25/24 09:33 Patient unable to answer at this time (ie. confused, unrespo /Reproduction History /Reproductive History - clinical services director: /Reproductive Hx- clinical services director Hx Now No 11/25/24 09:33 Gestational Age (in weeks): EDC: Hx Hx Para Hx Section SAB No 11/25/24 09:33 Active Medications Active Medications: Current Medications Generic Name Dose Route Start Last Admin Trade Name Freq PRN Reason Stop Dose Admin Indocyanine Green 3.75 mg/ N/A 1.5 mls @ 999 mls/hr 12/02/24 08:45 IV 12/02/24 08:46 PREOP ONE Lactated Ringer's 1,000 mls @ 15 mls/hr 12/02/24 08:15 IV .Q48H GERARDO PFSH Medical History Gallbladder polyp Wears glasses Post-menopausal Cancer Thyroid disease Gastric reflux Non-smoker Shortness of breath on exertion Chronic cough Leg cramps Normal Holter exam History of echocardiogram History of stress test Cardiology follow-up encounter Chest pain RLS (restless legs syndrome) Osteoporosis Arthritis Hyperlipidemia Tachycardia Asthma Lung nodules Home Medications ?Medication ?Instructions ?Recorded ?Last Taken ?Type denosumab 60 mg/mL subcutaneous 60 mg subcut .Q6 MONTH S 04/17/20 Unknown History syringe liothyronine 5 mcg tablet (Cytomel) 5 mcg PO DAILY 01/0610/10/24 05:00 History calcium 600 mg (as 1 tab PO BID 09/11/23 Unknow n History carbonate)-vitamin D3 20 mcg (800 unit) tablet mecobalamin (vitamin B12) 1,000 1,000 mcg PO DAILY Unknown History mcg chewable tablet diltiazem HCl 30 mg tablet 30 mg PO QDAY 10/04/2309/15 05:00 History sulindac 200 mg tablet 200 mg PO BID 08/26/24 Unkno wn History cholecalciferol (vitamin D3) 25 125 mcg PO DAILY 10/08 Unknown History mcg (1,000 unit) capsule (Vitamin D3) magnesium 250 mg tablet 400 mg PO DAILY 10/08/24 Unk nown History turmeric 400 mg capsule 500 mg PO DAILY 10/18/24 Unk nown History dicyclomine 10 mg capsule 10 mg PO BID PRN abdominal p ain 11/12/24 Unknown Rx #30 caps Allergy/AdvReac Type Severity Reaction Status Date / Time No Known Allergies Allergy Verified 11/25/24 09:31 Family History Mother Rheumatoid arthritis Father Rheumatoid arthritis Other Malignant neoplasm determined by biopsy of testicle Surgical History History of esophagogastroduodenoscopy (EGD) History of lobectomy of lung H/O vaginal surgery History of surgery on upper extremity Complete tear of sacrospinous ligament Cataract fragments of eye following cataract surgery History of genitourinary surgery S/P cervical spinal fusion Hx of repair of rotator cuff H/O hand surgery History of total right knee replacement (TKR) Social History Smoking Status: Never smoker alcohol intake: current alcohol intake frequency: a few times a week Alcohol type: wine substance use type: does not use Review of Systems (Anesthesia) ROS Narrative System reviewed and no additional complaints, except as documented. 12/02/24 0806 <Electronically signed by Duc Muir MD > Date _ Duc Muir MD Cosigner Signature: Date CC: ~ Signed [facility] Work Phone: [phone] History and physical note [facility] Medical Records Department [address] [place] [address] History & Physical Exam 12/02/24919 MR#: [id number] Acct: [id number] Name: MARGIE FULTON Rep # :[id number] : 1940 84 From: Carlos Cano MD PCP: Dr. Danielle Paige, DO Status:REG [facility] [place] Location: [place] [address] HPI - General General Date of Admission: 12/02/24 Date of Service: 12/02/24 Chief Complaint: Right upper quadrant pain HPI Narrative The patient is an 84-year-old female who is being seen today for right upper quadrant pain and someabnormal imaging regarding her gallbladder. Patient states that she has been having some right upper quadrant pain for some time. She recently underwent an EGD which sounds as though this was unremarkable. Shealso underwent an ultrasound that showed a questionable 2 cm polyp or mass within the gallbladder. This was followed up with an MRI which did not reveal any obvious mass or polyp. Nevertheless she continues to have some periodic right upper quadrant pain. She does state that this sometimesis worse with eating and does radiate around to the back and right shoulder. She presents today forfurther evaluation and treatment recommendations [facility] Medical History Gallbladder polyp Wears glasses Post-menopausal Cancer Thyroid disease Gastric reflux Non-smoker Shortness of breath on exertion Chronic cough Leg cramps Normal Holter exam History of echocardiogram History of stress test Cardiology follow-up encounter Chest pain RLS (restless legs syndrome) Osteoporosis Arthritis Hyperlipidemia Tachycardia Asthma Lung nodules Home Medications ?Medication ?Instructions ?Recorded ?Last Taken ?Type denosumab 60 mg/mL subcutaneous 60 mg subcut .Q6 MONTH S 04/17/20 Unknown History syringe liothyronine 5 mcg tablet (Cytomel) 5 mcg PO DAILY 01/0612/02/24 History calcium 600 mg (as 1 tab PO BID 09/11/23 Unknow n History carbonate)-vitamin D3 20 mcg (800 unit) tablet mecobalamin (vitamin B12) 1,000 1,000 mcg PO DAILY Unknown History mcg chewable tablet diltiazem HCl 30 mg tablet 30 mg PO QDAY 10/04/2311/14 History sulindac 200 mg tablet 200 mg PO BID 08/26/24 Unkno wn History cholecalciferol (vitamin D3) 25 125 mcg PO DAILY 10/08 Unknown History mcg (1,000 unit) capsule (Vitamin D3) magnesium 250 mg tablet 400 mg PO DAILY 10/08/24 Unk nown History turmeric 400 mg capsule 500 mg PO DAILY 10/18/24 Unk nown History dicyclomine 10 mg capsule 10 mg PO BID PRN abdominal p ain 11/12/24 Unknown Rx #30 caps omeprazole 40 mg capsule,delayed 40 mg PO BID 12/02/24 12/02/24 History release Allergy/AdvReac Type Severity Reaction Status Date / Time No Known Allergies Allergy Verified 12/02/24 08:34 Family History Mother Rheumatoid arthritis Father Rheumatoid arthritis Other Malignant neoplasm determined by biopsy of testicle Surgical History History of esophagogastroduodenoscopy (EGD) History of lobectomy of lung H/O vaginal surgery History of surgery on upper extremity Complete tear of sacrospinous ligament Cataract fragments of eye following cataract surgery History of genitourinary surgery S/P cervical spinal fusion Hx of repair of rotator cuff H/O hand surgery History of total right knee replacement (TKR) Social History Smoking Status: Never smoker alcohol intake: current alcohol intake frequency: a few times a week Alcohol type: wine substance use type: does not use Vital Signs Vital Signs Vital Signs: 12/02/24 08:13 12/02/24 08:13 Temperature 98.7 F Temperature Source Temporal Pulse Rate 83 Respiratory Rate 18 Respiratory Pattern Normal Blood Pressure 114/69 Blood Pressure Mean 84 Blood Pressure Source Monitor Blood Pressure Position Sitting Blood Pressure Location Left Arm Pulse Ox 98 Oxygen Delivery Method Room Air Weight Weight: 132 lb 4.438 oz Body Mass Index (BMI) 22.0 Physical Exam Const alert, oriented x3 and no apparent distress Assessment & Plan Assessment/Plan (1) Abdominal pain: PLAN: Plan Patient is a 4-year-old female with periodic right upper quadrant pain and questionable polyp in the gallbladder. I do feel that her symptoms seem reminiscent of biliary colic and so I have recommended a robotic cholecystectomy. We discussed the details of the planned procedure including risks benefits and alternatives and she wishes to proceed. Surgery began shortly Charges/Coding Visit Charges Inpatient E&M: 90101 Init Hosp L2 12/02/24 0922 Cosigner Signature (if applicable): CC: Dr. Danielle Paige DO; Dr. Carlos Cano MD~ Signed [email or web address] [facility] Medical Records Department [address] [place] [address] History Physical Exam 12/02/24 09 MR#: [id number] Acct: [id number] Name: MARGIE FULTON Rep #: [id number] : 1940 84 From: Carlos Cano MD PCP: Dr. Danielle Paige DO Status:[facility] Location: [place] [address] HPI - General General Date of Admission: 12/02/24 Date of Service: 12/02/24 Chief Complaint: Right upper quadrant pain HPI Narrative The patient is an 84-year-old female who is being seen today for right upper quadrant pain and some abnormal imaging regarding her gallbladder. Patient states that she has been having some right upper quadrant pain for some time. She recently underwent an EGD which sounds as though this was unremarkable. She also underwent an ultrasound that showed a questionable 2 cm polyp or mass within the gallbladder. This was followed up with an MRI which did not reveal any obvious mass or polyp. Nevertheless she continues to have some periodic right upper quadrant pain. She does state that this sometimes is worse with eating and does radiate around to the back and right shoulder. She presents today for further evaluation and treatment recommendations [facility] Medical History Gallbladder polyp Wears glasses Post-menopausal Cancer Thyroid disease Gastric reflux Non-smoker Shortness of breath on exertion Chronic cough Leg cramps Normal Holter exam History of echocardiogram History of stress test Cardiology follow-up encounter Chest pain RLS (restless legs syndrome) Osteoporosis Arthritis Hyperlipidemia Tachycardia Asthma Lung nodules Home Medications ???Medication ???Instructions ???Recorded ???Last Taken ???Type denosumab 60 mg/mL subcutaneous 60 mg subcut .Q6 MONTHS 04/17/20 U nknown History syringe liothyronine 5 mcg tablet (Cytomel) 5 mcg PO DAILY 04/21/23 5 History calcium 600 mg (as 1 tab PO BID 09/11/23 Unknown Hist ory carbonate)-vitamin D3 20 mcg (800 unit) tablet mecobalamin (vitamin B12) 1,000 1,000 mcg PO DAILY 09/11/23 Unknow n History mcg chewable tablet diltiazem HCl 30 mg tablet 30 mg PO QDAY 10/04/23 12/02/24 Hi story sulindac 200 mg tablet 200 mg PO BID 08/26/24 Unknown His tory cholecalciferol (vitamin D3) 25 125 mcg PO DAILY 10/08/24 Unknown History mcg (1,000 unit) capsule (Vitamin D3) magnesium 250 mg tablet 400 mg PO DAILY 10/08/24 Unknown H istory turmeric 400 mg capsule 500 mg PO DAILY 10/18/24 Unknown H istory dicyclomine 10 mg capsule 10 mg PO BID PRN abdominal pain Unknown Rx #30 caps omeprazole 40 mg capsule,delayed 40 mg PO BID 12/02/24 12/02/24 His tory release Allergy/AdvReac Type Severity Reaction Status Date / Time No Known Allergies Allergy Verified 12/02/24 08:34 Family History Mother Rheumatoid arthritis Father Rheumatoid arthritis Other Malignant neoplasm determined by biopsy of testicle Surgical History History of esophagogastroduodenoscopy (EGD) History of lobectomy of lung H/O vaginal surgery History of surgery on upper extremity Complete tear of sacrospinous ligament Cataract fragments of eye following cataract surgery History of genitourinary surgery S/P cervical spinal fusion Hx of repair of rotator cuff H/O hand surgery History of total right knee replacement (TKR) Social History Smoking Status: Never smoker alcohol intake: current alcohol intake frequency: a few times a week Alcohol type: wine substance use type: does not use Vital Signs Vital Signs Vital Signs: 12/02/24 08:13 12/02/24 08:13 Temperature 98.7 F Temperature Source Temporal Pulse Rate 83 Respiratory Rate 18 Respiratory Pattern Normal Blood Pressure 114/69 Blood Pressure Mean 84 Blood Pressure Source Monitor Blood Pressure Position Sitting Blood Pressure Location Left Arm Pulse Ox 98 Oxygen Delivery Method Room Air Weight Weight: 132 lb 4.438 oz Body Mass Index (BMI) 22.0 Physical Exam Const alert, oriented x3 and no apparent distress Assessment Plan Assessment/Plan (1) Abdominal pain: PLAN: Plan Patient is a 4-year-old female with periodic right upper quadrant pain and questionable polyp in the gallbladder. I do feel that her symptoms seem reminiscent of biliary colic and so I have recommended a robotic cholecystectomy. We discussed the details of the planned procedure including risks benefits and alternatives and she wishes to proceed. Surgery began shortly Charges/Coding Visit Charges Inpatient E M: 24796 Init Hosp L (more content not included)...[email or web address] Consult note [facility] Medical Records Department [address] [place] [address] Pre-Anesthesia Evaluation 12/02/24 08 MR#: [id number] Acct: [id number] Name: MARGIE FULTON Rep # :[id number] : 1940 84 From: Duc Muir MD PCP: Dr. Danielle Paige, DO Status:REG SDC Y Race: C Location: [place] [address] ASA Classification* ASA Classification ASA Classification: 2 Assessment & Plan Anesthesia* Anesthesia Assessment Anesthesia Assessment: Discussed sedation and/or anesthesia options, risks, benefits, and alternatives with patient/parents/legal guardian/POA. Questions invited. The patient/parents/legal guardian/POA seems to understand and agrees to proceedwith anesthesia plan. Reviewed the physical assessment, medical history, allergy history and patient home medications list prior to surgery/procedure/anesthetic and documented any changes. Performed airway and anesthesia risk assessments. Anesthesia Type Anesthesia Type: General Anesthesia Focused Assessment* Airway Assessment Mouth opens: >3 cm Mallampati Score: II Focused Labs Anesthesia Preop lab: CBC WBC 4.9 K/mm3 (4.4-11.0) 08/07/24 09:08 08/07/24 RBC 4.19 M/mm3 (4.2-5.4) L 08/07/24 09:08 08/07/24 Hgb 12.6 g/dL (12.0-15.0) 08/07/24 09:08 08/07/24 Hct 40.2 % (37-47) 08/07/24 09:08 08/07/24 Plt Count 289 K/mm3 (150-450) 08/07/24 09:08 08/07/24 CHEMISTRY Potassium 3.8 mmol/L (3.5-5.1) 08/07/24 09:08 08/07/24 Sodium 140 mmol/L (136-145) 08/07/24 09:08 08/07/24 Magnesium 2.2 mg/dL (1.6-2.6) 01/26/23 10:33 01/26/23 BUN 19 mg/dL (7-18) H 08/07/24 09:08 08/07/24 Creatinine 0.81 mg/dL (0.55-1.02) 08/07/24 09:08 08/07/24 Glucose 87 mg/dL (74-106) 08/07/24 09:08 08/07/24 TSH 1.860 uIU/mL (0.300-4.200) 11/26/24 13:00 11/14 10/08 COAG PT 12.6 SECONDS (11.7-14.9) 08/18/20 13:37 Pre-Assessment Diagnosis/Proposed Procedure Planned Operative Procedure(s): (N/A) Robotic Cholecystectomy Anesthesia History Anesthesia History - clinical services director: Anesthesia History - clinical services director Hx Hospitalization No 11/25/24 09:33 Any Problems With Anesthesia No 11/25/24 09:33 Cholinesterase deficiency No 11/25/24 09:33 You/Your Family Experience No 11/25/24 09:33 fever (hyperthermia) with Relationship Recent Exposure to Contagious No 10/10/24 06:17 Disease Does patient have nerve No 11/25/24 09:33 stimulator Patient instructed to have device shut off --Does patient have Pacemaker or ICD? When Was Last Pacemaker Check QUESTION #4 FULL TEXT: You/Your Family Experience fever (hyperthermia) with Anesthesia Last Oral Intake Last Oral intake: Last Oral Intake NPO since Meds taken in AM with sips of water? Meds patient instructed to take am of surgery PONV PONV - clinical services director: PONV - clinical services director Female Yes 11/25/24 09:33 HX of Motion Sickness No 11/25/24 09:33 HX of N/V After Surgery No 11/25/24 09:33 Non-Smoker Yes 11/25/24 09:33 Duration of Surgery greater Yes 11/25/24 09:33 than 60 minutes Number of Risk Factors 3 11/25/24 09:33 PONV Score Moderate Risk 11/25/24 09:33 Height & Weight Height & Weight: Anesthesia: Height & Weight Height 5 ft 5 in 11/29/24 08:55 Weight: 61.235 kg 11/29/24 08:55 Respiratory Assessment Respiratory Assessment - clinical services director: Respiratory Tract Infection Hx - clinical services director Hx Respiratory Tract Infection Yes: Patient has a chronic 11/25/24 09:33 cough. Nothing acute. STOP Sleep Apnea STOP Sleep Apnea - clinical services director: STOP Sleep Apnea - clinical services director Hx Hypertension No 11/25/24 09:33 Hx Sleep Apnea No 11/25/24 09:33 CPAP No 11/25/24 09:33 BIPAP No 11/25/24 09:33 Do you snore loudly (louder No 11/25/24 09:33 than talking or can be heard Do you often feel tired/ No 11/25/24 09:33 fatigued/ sleepy during daytime? Has anyone observed you stop No 11/25/24 09:33 breathing during sleep? STOP Results Negative 11/25/24 09:33 QUESTION #5 FULL TEXT : Do you snore loudly (louder than talking or can be heard through closeddoors)? Tobacco Use History Tobacco Use History - clinical services director: Tobacco Use History - clinical services director Tobacco Use Smoking Status Never smoker 11/25/24 09:33 Hx Tobacco Use No 11/25/24 09:33 Years Smoking Packs Smoked per Day Smoking Cessation Date was within the last 15 years Hx Smoking Cessation Date Hx Smoking Cessation Counseling Hematologic Medial History Hematologic Hx - clinical services director: Hematologic Medical Hx - community service representative Hx of Blood Transfusion Yes 11/25/24 09:33 Hx of Transfusion in last 3 No 11/25/24 09:33 Months Date of Last Transfusion (if within last 3 months) Ever experience any problems No 11/25/24 09:33 with transfusion(s)? Specify any problems Hx of Preganancy in last 3 N/A 11/25/24 09:33 Months Nurse Filling Out Transfusion NBUCHER 11/25/24 09:33 & Questions: Date: 11/25/24 11/25/24 09:33 Time: 09:33 11/25/24 09:33 Patient unable to answer at this time (ie. confused, unrespo /Reproduction History /Reproductive History - clinical services director: /Reproductive Hx- clinical services director Hx Now No 11/25/24 09:33 Gestational Age (in weeks): EDC: Hx Hx Para Hx Section SAB No 11/25/24 09:33 Active Medications Active Medications: Current Medications Generic Name Dose Route Start Last Admin Trade Name Freq PRN Reason Stop Dose Admin Indocyanine Green 3.75 mg/ N/A 1.5 mls @ 999 mls/hr 12/02/24 08:45 IV 12/02/24 08:46 PREOP ONE Lactated Ringer's 1,000 mls @ 15 mls/hr 12/02/24 08:15 IV .Q48H GERARDO PFSH Medical History Gallbladder polyp Wears glasses Post-menopausal Cancer Thyroid disease Gastric reflux Non-smoker Shortness of breath on exertion Chronic cough Leg cramps Normal Holter exam History of echocardiogram History of stress test Cardiology follow-up encounter Chest pain RLS (restless legs syndrome) Osteoporosis Arthritis Hyperlipidemia Tachycardia Asthma Lung nodules Home Medications ?Medication ?Instructions ?Recorded ?Last Taken ?Type denosumab 60 mg/mL subcutaneous 60 mg subcut .Q6 MONTH S 04/17/20 Unknown History syringe liothyronine 5 mcg tablet (Cytomel) 5 mcg PO DAILY 01/0610/10/24 05:00 History calcium 600 mg (as 1 tab PO BID 09/11/23 Unknow n History carbonate)-vitamin D3 20 mcg (800 unit) tablet mecobalamin (vitamin B12) 1,000 1,000 mcg PO DAILY Unknown History mcg chewable tablet diltiazem HCl 30 mg tablet 30 mg PO QDAY 10/04/23 03/02/07 05:00 History sulindac 200 mg tablet 200 mg PO BID 08/26/24 Unkno wn History cholecalciferol (vitamin D3) 25 125 mcg PO DAILY 10/08 Unknown History mcg (1,000 unit) capsule (Vitamin D3) magnesium 250 mg tablet 400 mg PO DAILY 10/08/24 Unk nown History turmeric 400 mg capsule 500 mg PO DAILY 10/18/24 Unk nown History dicyclomine 10 mg capsule 10 mg PO BID PRN abdominal p ain 11/12/24 Unknown Rx #30 caps Allergy/AdvReac Type Severity Reaction Status Date / Time No Known Allergies Allergy Verified 11/25/24 09:31 Family History Mother Rheumatoid arthritis Father Rheumatoid arthritis Other Malignant neoplasm determined by biopsy of testicle Surgical History History of esophagogastroduodenoscopy (EGD) History of lobectomy of lung H/O vaginal surgery History of surgery on upper extremity Complete tear of sacrospinous ligament Cataract fragments of eye following cataract surgery History of genitourinary surgery S/P cervical spinal fusion Hx of repair of rotator cuff H/O hand surgery History of total right knee replacement (TKR) Social History Smoking Status: Never smoker alcohol intake: current alcohol intake frequency: a few times a week Alcohol type: wine substance use type: does not use Review of Systems (Anesthesia) ROS Narrative System reviewed and no additional complaints, except as documented. 12/02/24 0806 > Date _ Duc Muir MD Cosigner Signature: Date CC: ~ Signed [facility]03-27-2025 Consult note [facility] Medical Records Department [address] [place] [address] Anesthesia Postop Eval I 10/10/24751 MR#: [id number] Acct: [id number] Name: MARGIE FULTON Rep # :[id number] : 1940 84 From: Rocky Worthy PCP: Dr. Danielle Paige, DO Status:REG [facility] [place] Race: C Location: [place] [address] Anesthesia: Postop Eval I Current Vital Signs Temperature: 97.6 F Pulse Rate: 88 Blood Pressure: 101/72 Respiratory Rate: 16 Pulse Ox: 97 Oxygen Delivery Method: Room Air Assessment Airway patent: Yes Spontaneous unlabored respirations: Yes Mental status: Awake and Calm nausea: No Vomiting: No Anesthesia Complication: No Fluid Hydration Crystalloid volume administer (ml): 30 Total IV fluid infused: 30 Progress Note Anesthesia document: Postop Eval 1 completed: Yes 10/10/24 0753 > Date _ Rocky Alvarez Signature: Date CC: ~ Signed [facility]03-27-2025 Procedure note [facility] Medical Records Department [address] [place] [address] Operative Report - CC Letter MR#: [id number] Acct: [id number] Name: MARGIE FULTON Rep # :[id number] : 1940 84 From: Aron Frank DO PCP: Dr. aDnielle Paige, DO Status:REG [facility] 10/10/2024 Danielle Paige [address] [place] [address] [place] [address] Re : Upper GI endoscopy procedure for Margie Manjula Dear Dr. Paige This procedure was performed on September. My impressions and recommendations are as follows: Impressions : - Abnormal esophageal motility, suspicious for presbyesophagus. Biopsied. Dilated. - Small hiatal hernia. - No gross lesions in the first portion of the duodenum. Recommendations : - Discharge patient to home. - Resume previous diet. - Continue present medications. - Await pathology results. My findings are described in the full procedure note, which is enclosed. If I can be of further assistance, please feel free to contact me at . Sincerely, Aron Frank DO 10/10/2024 7:31:21 AM This report has been signed electronically. 10/10/24730 Date _ Aron Frank DO Cosigner Signature: Date (if indicated) CC: Dr. Danielle Paige DO; Aron Frank DO ~ Date Dictated: 10/10/24710 Date Transcribed: Doula: RF Signed [facility]03-27-2025 Procedure note [facility] Medical Records Department [address] [place] [address] EGD Report MR#: [id number] Acct: [id number] Name: MARGIE FULTON Rep # :[id number] : 1940 84 From: Aron Frank DO PCP: Dr. Danielle Paige DO Status:[facility] Patient Name: Margie Fulton Procedure Date: 10/10/2024 7:11 AM Date of : 1940 Age: 84 Procedure: Upper GI endoscopy Indications: Dysphagia, Suspected esophageal reflux Providers: Aron Frank DO Referring MD: Danielle Paige Medicines: Monitored Anesthesia Care Patient Profile: This is an 84 year old female. Refer to note in patient chart for documentation of history and physical. Patient has symptoms of chronic cough, chronic dysphagia and dysphagia with both liquids and solids. Complications: No immediate complications. Procedure: Pre-Anesthesia Assessment: - Prior to the procedure, a History and Physical was performed, and patient medications and allergies were reviewed. The patient is competent. The risks and benefits of the procedure and the sedation options and risks were discussed with the patient. All questions were answered and informed consent was obtained. Patient identification and proposed procedure were verified by the physician in the pre-procedure area. Mental Status Examination: alert and oriented. Airway Examination: normal oropharyngeal airway and neck mobility. Respiratory Examination: clear to auscultation. CV Examination: normal. Prophylactic Antibiotics: The patient does not require prophylactic antibiotics. Prior Anticoagulants: The patient has taken no anticoagulant or antiplatelet agents except for aspirin. ASA Grade Assessment: II - A patient with mild systemic disease. After reviewing the risks and benefits, the patient was deemed in satisfactory condition to undergo the procedure. The anesthesia plan was to use monitored anesthesia care (MAC). Immediately prior to administration of medications, the patient was re-assessed for adequacy to receive sedatives. The heart rate, respiratory rate, oxygen saturations, blood pressure, adequacy of pulmonary ventilation, and response to care were monitored throughout the procedure. The physical status of the patient was re-assessed after the procedure. After obtaining informed consent, the endoscope was passed under direct vision. Throughout the procedure, the patient's blood pressure, pulse, and oxygen saturations were monitored continuously. The Endoscope was introduced through the mouth, and advanced to the second part of duodenum. The upper GI endoscopy was accomplished without difficulty. The patient tolerated the procedure well. Scope In: 7:20:13 AM Scope Out: 7:24:17 AM Total Procedure Duration Time 0 hours 4 minutes 4 seconds Findings: Abnormal motility was noted at the cricopharyngeus. The cricopharyngeus was abnormal. There is a decrease in motility of the esophageal body. The distal esophagus/lower esophageal sphincter is spastic, but gives up passage to the endoscope. Primary peristaltic waves are noted. Biopsies were taken with a cold forceps for histology. Verification of patient identification for the specimen was done. A guidewire was placed and the scope was withdrawn. Dilation was performed with a Savary dilator with no resistance at 54 Fr. The dilation site was examined and showed mild improvement in luminal narrowing. Estimated blood loss was minimal. A small hiatal hernia was present. No other significant abnormalities were identified in a careful examination of the stomach. No gross lesions were noted in the first portion of the duodenum. Impression: - Abnormal esophageal motility, suspicious for presbyesophagus. Biopsied. Dilated. - Small hiatal hernia. - No gross lesions in the first portion of the duodenum. Recommendation: - Discharge patient to home. - Resume previous diet. - Continue present medications. - Await pathology results. Procedure Code(s): --- Professional --- 70744, Esophagogastroduodenoscopy, flexible, transoral; with insertion of guide wire followed by passage of dilator(s) through esophagus over guide wire 02987, 59,51, Esophagogastroduodenoscopy, flexible, transoral; with biopsy, single or multiple CPT copyright 2021 [employer]. All rights reserved. The codes documented in this report are preliminary and upon label coder review may be revised to meet current compliance requirements. Aron Frank DO 10/10/2024 7:31:21 AM This report has been signed electronically. Number of Addenda: 0 Note Initiated On: 10/10/2024 7:11 AM 10/10/24730 Date _ Aron Frank DO Cosigner Signature: Date (if indicated) CC: Dr. Danielle Paige DO; Aron Frank DO ~ Date Dictated: 10/10/24710 Date Transcribed: Doula: RF Signed [facility]03-27-2025 History and physical note [facility] Medical Records Department [address] [place] [address] History & Physical Exam 10/10/24 0707 MR#: [id number] Acct: [id number] Name: MARGIE FULTON Rep # :[id number] : 1940 84 From: Aron Frank DO PCP: Dr. Danielle Paige DO Status:[facility] Location: [place] [address] HPI - General General Date of Admission: 10/10/24 Date of Service: 10/10/24 Chief Complaint: Cough and dysphagia HPI Narrative MARGIE FULTON, is a 84 F who presents for the endoscopic valuation of cough and dysphagia Omeprazole 40mg daily LABS 08/07/2024 HGB 12.6, PLT 289, AST 38, ALP 177, CRP 9.19 01/24/2024 CEA 10.2 - denies any change in habits - denies any bleeding - non-productive cough with swallowing - dysphagia - upper esophagus - solids - intermittent - denies any H/O CVA ENT - prior to 2021 - due to cough and hoarseness - states laryngoscopy was negative [facility] lung CA - lobe ectomy October 2021 - no chemo or radiation - denies any kidney or cardiac issues - Colonoscopy 5 years ago was normal per patient - remains active - continues to drive - lives alone [facility] Medical History Wears glasses Post-menopausal Cancer Thyroid disease Gastric reflux Non-smoker Shortness of breath on exertion Chronic cough Leg cramps Normal Holter exam History of echocardiogram History of stress test Cardiology follow-up encounter Chest pain RLS (restless legs syndrome) Osteoporosis Arthritis Hyperlipidemia Tachycardia Asthma Lung nodules Home Medications ?Medication ?Instructions ?Recorded ?Last Taken ?Type denosumab 60 mg/mL subcutaneous 60 mg subcut .Q6 MONTH S 04/17/20 Unknown History syringe omeprazole 40 mg capsule,delayed 40 mg PO DAILY Unknown History release liothyronine 5 mcg tablet (Cytomel) 5 mcg PO DAILY 01/0610/10/24 05:00 History calcium 600 mg (as 1 tab PO BID 09/11/23 Unknow n History carbonate)-vitamin D3 20 mcg (800 unit) tablet mecobalamin (vitamin B12) 1,000 1,000 mcg PO DAILY Unknown History mcg chewable tablet diltiazem HCl 30 mg tablet 30 mg PO QDAY 10/04/2309/15 05:00 History sulindac 200 mg tablet 200 mg PO BID 08/26/24 Unkno wn History cholecalciferol (vitamin D3) 25 25 mcg PO DAILY Unknown History mcg (1,000 unit) capsule (Vitamin D3) magnesium 250 mg tablet 250 mg PO DAILY 10/08/24 Unk nown History Allergy/AdvReac Type Severity Reaction Status Date / Time No Known Allergies Allergy Verified 10/10/24 06:15 Family History Mother Rheumatoid arthritis Father Rheumatoid arthritis Other Malignant neoplasm determined by biopsy of testicle Surgical History History of lobectomy of lung H/O vaginal surgery History of surgery on upper extremity Complete tear of sacrospinous ligament Cataract fragments of eye following cataract surgery History of genitourinary surgery S/P cervical spinal fusion Hx of repair of rotator cuff H/O hand surgery History of total right knee replacement (TKR) Social History Smoking Status: Never smoker alcohol intake: current alcohol intake frequency: a few times a week Alcohol type: wine substance use type: does not use ROS Constitutional Constitutional: Denies fatigue, fever(s), poor appetite, weight gain or weight loss Gastrointestinal Gastrointestinal: Denies belching, bloating, change in bowel habits, change in stool character, chewing difficulty, coffee ground emesis, constipation, cramping, diarrhea, dyspepsia, dysphagia, earlysatiety, excessive flatus, fecalincontinence, heartburn, hematemesis, hematochezia, hemorrhoids, loose stools, melena, nausea, odynophagia, rectal bleeding, tenesmus, vomiting or weight changes Vital Signs Vital Signs Vital Signs: 10/10/24 06:17 10/10/24 06:17 10/10/24 06:40 Temperature 98.1 F 98.1 F Temperature Source Temporal Pulse Rate 79 79 Respiratory Rate 16 16 Respiratory Pattern Normal Blood Pressure 112/73 112/73 Blood Pressure Mean 86 Blood Pressure Source Monitor Blood Pressure Position Sitting Blood Pressure Location Right Arm Pulse Ox 99 99 Oxygen Delivery Method Room Air Room Air Weight Weight: 135 lb 5.821 oz Body Mass Index (BMI) 24.0 Physical Exam Const alert, oriented x3, no apparent distress and healthy appearing General Appearance: cooperative GI normal to inspection, nondistended, normoactive bowel sounds, soft to palpation,non-tender and non-distended Percussion: normal to percussion Rectal Exam: deferred Assessment & Plan Assessment/Plan (1) Cough: (2) Dysphagia: PLAN: Assessment and Plan Assessment and Plan (1) Gastroesophageal reflux disease: (2) Dysphagia: Status: Acute (3) Cough: Status: Acute (4) Weight loss: Status: Acute (5) Elevated alkaline phosphatase level: Status: Acute (6) Elevated AST (SGOT): Status: Acute Orders: Orders Swallowing Function w/Video 08/27/24 R05.9 - Cough, unspecified, R13.10 - Dysphagia, unspecified, R63.4 - Abnormal weight loss Esophagus Dual Contrast 08/27/24 R05.9 - Cough, unspecified, R13.10 - Dysphagia, unspecified, R63.4- Abnormal weight loss Liver Profile 1 Month R74.01 - Elevation of levels of liver transaminase levels, R74.8 - Abnormal levels of other serum enzymes GGTP 1 Month R74.01 - Elevation of levels of liver transaminase levels, R74.8 - Abnormal levels of other serum enzymes Plan 84y/o female presents for consultation with complaints of hoarseness, cough and GERD. PMH of tachycardiac, COPD, lung nodule s/p right upper lobe ectomy, HLD. Cardiac w/u for SOB December 2023 with normal stress test and EF 60%. UGI symptoms are postprandial but does endorse coughing with swallowing. Denies any N/V. She is taking Omeprazole 40mg daily x2 years and reports no improvement in cough. Shedoes experience intermittent upper esophageal dysphagia with solids. She reports a decrease in appetite and weight loss of 10lbs over the past six months. Labs completed 08/07/2024 reveal AST 38, ALP 177, CRP 9.19. I have scheduled her for MBS/Esophagram and EGD. She will repeat labs in 1 month. Patient Instructions: Labs 1 month EGD MBS and Esophagram Continue daily PPI 10/10/24 0709 Cosigner Signature (if applicable): CC: Dr. Danielle Paige, ; Aron Friend, DO~ Signed [facility]03-27-2025 [facility] Medical Records Department [address] [place] [address] History Physical Exam 10/10/24 0707 MR#: [id number] Acct: [id number] Name: MARGIE FULTON Rep #: [id number] : 1940 84 From: Aron Frank DO PCP: Dr. Danielle Paige DO Status:[facility] Location: [place] [address] HPI - General General Date of Admission: 10/10/24 Date of Service: 10/10/24 Chief Complaint: Cough and dysphagia HPI Narrative MARGIE FULTON, is a 84 F who presents for the endoscopic valuation of cough and dysphagia Omeprazole 40mg daily LABS 08/07/2024 HGB 12.6, PLT 289, AST 38, ALP 177, CRP 9.19 01/24/2024 CEA 10.2 - denies any change in habits - denies any bleeding - non-productive cough with swallowing - dysphagia - upper esophagus - solids - intermittent - denies any H/O CVA ENT - prior to 2021 - due to cough and hoarseness - states laryngoscopy was negative [facility] lung CA - lobe ectomy October 2021 - no chemo or radiation - denies any kidney or cardiac issues - Colonoscopy 5 years ago was normal per patient - remains active - continues to drive - lives alone [facility] Medical History Wears glasses Post-menopausal Cancer Thyroid disease Gastric reflux Non-smoker Shortness of breath on exertion Chronic cough Leg cramps Normal Holter exam History of echocardiogram History of stress test Cardiology follow-up encounter Chest pain RLS (restless legs syndrome) Osteoporosis Arthritis Hyperlipidemia Tachycardia Asthma Lung nodules Home Medications ???Medication ???Instructions ???Recorded ???Last Taken ???Type denosumab 60 mg/mL subcutaneous 60 mg subcut .Q6 MONTHS 04/17/20 U nknown History syringe omeprazole 40 mg capsule,delayed 40 mg PO DAILY 04/17/20 Unknown Hi story release liothyronine 5 mcg tablet (Cytomel) 5 mcg PO DAILY 04/21/23 5 05:00 History calcium 600 mg (as 1 tab PO BID 09/11/23 Unknown Hist ory carbonate)-vitamin D3 20 mcg (800 unit) tablet mecobalamin (vitamin B12) 1,000 1,000 mcg PO DAILY 09/11/23 Unknow n History mcg chewable tablet diltiazem HCl 30 mg tablet 30 mg PO QDAY 10/04/23 10/10/24 05 :00 History sulindac 200 mg tablet 200 mg PO BID 08/26/24 Unknown His tory cholecalciferol (vitamin D3) 25 25 mcg PO DAILY 10/08/24 Unknown H istory mcg (1,000 unit) capsule (Vitamin D3) magnesium 250 mg tablet 250 mg PO DAILY 10/08/24 Unknown H istory Allergy/AdvReac Type Severity Reaction Status Date / Time No Known Allergies Allergy Verified 10/10/24 06:15 Family History Mother Rheumatoid arthritis Father Rheumatoid arthritis Other Malignant neoplasm determined by biopsy of testicle Surgical History History of lobectomy of lung H/O vaginal surgery History of surgery on upper extremity Complete tear of sacrospinous ligament Cataract fragments of eye following cataract surgery History of genitourinary surgery S/P cervical spinal fusion Hx of repair of rotator cuff H/O hand surgery History of total right knee replacement (TKR) Social History Smoking Status: Never smoker alcohol intake: current alcohol intake frequency: a few times a week Alcohol type: wine substance use type: does not use ROS Constitutional Constitutional: Denies fatigue, fever(s), poor appetite, weight gain or weight loss Gastrointestinal Gastrointestinal: Denies belching, bloating, change in bowel habits, change in stool character, chewing difficulty, coffee ground emesis, constipation, cramping, diarrhea, dyspepsia, dysphagia, early satiety, excessive flatus, fecal incontinence, heartburn, hematemesis, hematochezia, hemorrhoids, loose stools, melena, nausea, odynophagia, rectal bleeding, tenesmus, vomiting or weight changes Vital Signs Vital Signs Vital Signs: 10/10/24 06:17 10/10/24 06:17 10/10/24 06:40 Temperature 98.1 F 98.1 F Temperature Source Temporal Pulse Rate 79 79 Respiratory Rate 16 16 Respiratory Pattern Normal Blood Pressure 112/73 112/73 Blood Pressure Mean 86 Blood Pressure Source Monitor Blood Pressure Position Sitting Blood Pressure Location Right Arm Pulse Ox 99 99 Oxygen Delivery Method Room Air Room Air Weight Weight: 135 lb 5.821 oz Body Mass Index (BMI) 24.0 Physical Exam Const alert, oriented x3, no apparent distress and healthy appearing General Appearance: cooperative GI normal to inspection, nondistended, normoactive bowel sounds, soft to palpation, non-tender and non- distended Percussion: normal to percussion (more content not included)...[facility]03-27-2025 Consult note [facility] Medical Records Department [address] [place] [address] Pre-Anesthesia Evaluation 10/10/24 0633 MR#: [id number] Acct: [id number] Name: MARGIE FULTON Rep # :[id number] : 1940 84 From: Alex Rudolph MD PCP: Dr. Danielle Paige, DO Status:REG SD Y Race: C Location: [place] [address] ASA Classification* ASA Classification ASA Classification: 2 Assessment & Plan Anesthesia* Anesthesia Assessment Anesthesia Assessment: Discussed sedation and/or anesthesia options, risks, benefits, and alternatives with patient/parents/legal guardian/POA. Questions invited. The patient/parents/legal guardian/POA seems to understand and agrees to proceedwith anesthesia plan. Reviewed the physical assessment, medical history, allergy history and patient home medications list prior to surgery/procedure/anesthetic and documented any changes. Performed airway and anesthesia risk assessments. Anesthesia Type Anesthesia Type: MAC History Source History Obtained from:: Patient and Chart Anesthesia Focused Assessment* Temperature: 98.1 F Pulse Rate: 79 Blood Pressure: 112/73 Respiratory Rate: 16 Pulse Ox: 99 Oxygen Delivery Method: Room Air Airway Assessment Mouth opens: >3 cm Mallampati Score: IV Teeth Condition: Intact Neck Range of motion (ROM): Full ROM Focused Labs Anesthesia Preop lab: CBC WBC 4.9 K/mm3 (4.4-11.0) 08/07/24 09:08 08/07/24 RBC 4.19 M/mm3 (4.2-5.4) L 08/07/24 09:08 08/07/24 Hgb 12.6 g/dL (12.0-15.0) 08/07/24 09:08 08/07/24 Hct 40.2 % (37-47) 08/07/24 09:08 08/07/24 Plt Count 289 K/mm3 (150-450) 08/07/24 09:08 08/07/24 CHEMISTRY Potassium 3.8 mmol/L (3.5-5.1) 08/07/24 09:08 08/07/24 Sodium 140 mmol/L (136-145) 08/07/24 09:08 08/07/24 Magnesium 2.2 mg/dL (1.6-2.6) 01/26/23 10:33 01/26/23 BUN 19 mg/dL (7-18) H 08/07/24 09:08 08/07/24 Creatinine 0.81 mg/dL (0.55-1.02) 08/07/24 09:08 08/07/24 Glucose 87 mg/dL (74-106) 08/07/24 09:08 08/07/24 TSH 2.000 uIU/mL (0.358-3.740) 08/07/24 09:08 07/18 09/10 COAG PT 12.6 SECONDS (11.7-14.9) 08/18/20 13:37 Pre-Assessment Diagnosis/Proposed Procedure Planned Operative Procedure(s): EGD Anesthesia History Anesthesia History - clinical services director: Anesthesia History - clinical services director Hx Hospitalization No 10/08/24 11:46 Any Problems With Anesthesia No 10/08/24 11:46 Cholinesterase deficiency No 10/08/24 11:46 You/Your Family Experience No 10/08/24 11:46 fever (hyperthermia) with Relationship Recent Exposure to Contagious No 10/10/24 06:17 Disease Does patient have nerve No 10/08/24 11:46 stimulator Patient instructed to have device shut off --Does patient have Pacemaker No 10/10/24 06:17 or ICD? When Was Last Pacemaker Check QUESTION #4 FULL TEXT: You/Your Family Experience fever (hyperthermia) with Anesthesia Last Oral Intake Last Oral intake: Last Oral Intake NPO since 05:00 10/10/24 06:17 Meds taken in AM with sips of Yes 10/10/24 06:17 water? Meds patient instructed to see med rec 10/10/24 06:17 take am of surgery Any additional information?: Yes Meds taken in AM with sips of water?: Yes PONV PONV - clinical services director: PONV - clinical services director Female Yes 10/08/24 11:46 HX of Motion Sickness No 10/08/24 11:46 HX of N/V After Surgery No 10/08/24 11:46 Non-Smoker Yes 10/08/24 11:46 Duration of Surgery greater No 10/08/24 11:46 than 60 minutes Number of Risk Factors 2 10/08/24 11:46 PONV Score Moderate Risk 10/08/24 11:46 Height & Weight Height & Weight: Anesthesia: Height & Weight Height 5 ft 3 in 10/10/24 06:17 Weight: 61.4 kg 10/10/24 06:17 Body Mass Index (BMI) 24.0 10/10/24 06:17 Respiratory Assessment Respiratory Assessment - clinical services director: Respiratory Tract Infection Hx - clinical services director Hx Respiratory Tract Infection No 10/08/24 11:46 Any additional information?: Yes Hx Respiratory Tract Infection: Yes (Patient has a chronic cough. Nothing acute.) STOP Sleep Apnea STOP Sleep Apnea - clinical services director: STOP Sleep Apnea - clinical services director Hx Hypertension No 10/08/24 11:46 Hx Sleep Apnea No 10/08/24 11:46 CPAP No 10/08/24 11:46 BIPAP No 10/08/24 11:46 Do you snore loudly (louder No 10/08/24 11:46 than talking or can be heard Do you often feel tired/ No 10/08/24 11:46 fatigued/ sleepy during daytime? Has anyone observed you stop No 10/08/24 11:46 breathing during sleep? STOP Results Negative 10/08/24 11:46 QUESTION #5 FULL TEXT : Do you snore loudly (louder than talking or can be heard through closeddoors)? Tobacco Use History Tobacco Use History - clinical services director: Tobacco Use History - clinical services director Tobacco Use Smoking Status Never smoker 10/08/24 11:46 Hx Tobacco Use No 10/08/24 11:46 Years Smoking Packs Smoked per Day Smoking Cessation Date was within the last 15 years Hx Smoking Cessation Date Hx Smoking Cessation Counseling Hematologic Medial History Hematologic Hx - clinical services director: Hematologic Medical Hx - community service representative Hx of Blood Transfusion Yes 10/08/24 11:46 Hx of Transfusion in last 3 No 10/08/24 11:46 Months Date of Last Transfusion (if within last 3 months) Ever experience any problems No 10/08/24 11:46 with transfusion(s)? Specify any problems Hx of Preganancy in last 3 No 10/08/24 11:46 Months Nurse Filling Out Transfusion VCHRISTIN 10/08/24 11:46 & Questions: Date: 10/08/24 10/08/24 11:46 Time: 11:47 10/08/24 11:46 Patient unable to answer at this time (ie. confused, unrespo /Reproduction History /Reproductive History - clinical services director: /Reproductive Hx- clinical services director Hx Now Gestational Age (in weeks): EDC: Hx Hx Para [facility] Medical History Wears glasses Post-menopausal Cancer Thyroid disease Gastric reflux Non-smoker Shortness of breath on exertion Chronic cough Leg cramps Normal Holter exam History of echocardiogram History of stress test Cardiology follow-up encounter Chest pain RLS (restless legs syndrome) Osteoporosis Arthritis Hyperlipidemia Tachycardia Asthma Lung nodules Home Medications ?Medication ?Instructions ?Recorded ?Last Taken ?Type denosumab 60 mg/mL subcutaneous 60 mg subcut .Q6 MONTH S 04/17/20 Unknown History syringe omeprazole 40 mg capsule,delayed 40 mg PO DAILY Unknown History release liothyronine 5 mcg tablet (Cytomel) 5 mcg PO DAILY 01/0610/10/24 05:00 History calcium 600 mg (as 1 tab PO BID 09/11/23 Unknow n History carbonate)-vitamin D3 20 mcg (800 unit) tablet mecobalamin (vitamin B12) 1,000 1,000 mcg PO DAILY Unknown History mcg chewable tablet diltiazem HCl 30 mg tablet 30 mg PO QDAY 10/04/2309/15 05:00 History sulindac 200 mg tablet 200 mg PO BID 08/26/24 Unkno wn History cholecalciferol (vitamin D3) 25 25 mcg PO DAILY Unknown History mcg (1,000 unit) capsule (Vitamin D3) magnesium 250 mg tablet 250 mg PO DAILY 10/08/24 Unk nown History Allergy/AdvReac Type Severity Reaction Status Date / Time No Known Allergies Allergy Verified 10/10/24 06:15 Family History Mother Rheumatoid arthritis Father Rheumatoid arthritis Other Malignant neoplasm determined by biopsy of testicle Surgical History History of lobectomy of lung H/O vaginal surgery History of surgery on upper extremity Complete tear of sacrospinous ligament Cataract fragments of eye following cataract surgery History of genitourinary surgery S/P cervical spinal fusion Hx of repair of rotator cuff H/O hand surgery History of total right knee replacement (TKR) Social History Smoking Status: Never smoker alcohol intake: current alcohol intake frequency: a few times a week Alcohol type: wine substance use type: does not use Review of Systems (Anesthesia) ROS Narrative System reviewed and no additional complaints, except as documented. 10/10/24 0640 anne-marie PAYNE> Date _ Alex Rudolph MD Cosigner Signature: Date CC: ~ Signed [facility]03-25-2025 Radiology Diagnostic study note [facility] Imaging Services [address] [place] [id number] Abdomen Limited MR#: [id number] Acct: [id number] Name: MARGIE FULTON Rep #: [id number] : 1940 F 84 From: Chantell Simpson MD PCP: Dr. Danielle Paige, DO Status: REG CLI Study:Abdomen Limited Date of Exam: 09/15 12/08 Exam# [id number] Ordering Dr: Savanna Gagnon COSMETICS DEMONSTRATOR-C PROCEDURE: ABDOMEN LIMITED 10/08/2024 REASON FOR EXAM: 84-year-old female, elevated alkaline phosphatase. COMPARISON: None. FINDINGS: Liver: Diffusely echogenic suggesting fatty infiltration. Normal in size measuring 13.2 cm. The bile ducts are within normal limits. The main portal veins patent with normal directional flow. Gallbladder: Soft tissue mass within the gallbladder fundus measuring 2.2 x 1.4 x 0.7 cm. The gallbladder is distended without gallbladder wall thickening or pericholecystic fluid. Negative Lee's sign. Common bile duct: Normal measuring 0.4 cm. Pancreas: Visualized portions are sonographically unremarkable. Other: Visualized portions of the right renal cortex are unremarkable. Dilated right renal pelvis measuring up to 1.4 cm. No right upper quadrant ascites. US/Abdomen Limited IMPRESSION: 1. Soft tissue mass within the gallbladder fundus, which may represent gallbladder neoplasm or gallbladder sludge. Correlation with cross-sectional imaging (CT or MRI) is recommended for further evaluation. 2. Dilation of the right renal pelvis without obvious renal cortical thinning. This could also be evaluated on cross-sectional imaging. 3. Mild hepatic steatosis. Reading Location: [facility] CC: COSMETICS DEMONSTRATOR-C Savanna Gagnon; Dr. Danielle Paige DO ~ Doula: Signed [facility]03-14-2025 Radiology Diagnostic study note [facility] Imaging Services [address] [place] [address] Esophagus Dual Contrast MR#: [id number] Acct: [id number] Name: MARGIE FULTNO Rep #: [id number] : 1940 F 84 From: Bennett Martins MD PCP: Dr. Danielle Paige DO Status: REG CLI Study:Esophagus Dual Contrast Date of Exam: 09/27/24 Exam# [id number] Ordering Dr: Savanna Gagnon PROCEDURE: ESOPHAGUS DUAL CONTRAST REASON FOR EXAM: DYSPHAGIA Chronic cough. TECHNIQUE: FLUOROSCOPIC TIME: 50 seconds. FLUOROGRAPHIC IMAGES: 45 fluoroscopic images. COMPARISON: None. FINDINGS: The patient ingested barium. Multiple fluoroscopic images of the esophagus wereobtained. The esophagus is unremarkable. No evidence of gastroesophageal reflux. No obstruction is seen. The patient ingested a 12 mm tablet the barium. The tablet is trapped at the gastroesophageal junction. There is evidence of dextroscoliosis of the thoracic spine with multilevel disc space narrowing. RAD/Esophagus Dual Contrast IMPRESSION: The ingested a 12 mm tablet the barium is trapped at the gastroesophageal junction. No evidence of gastroesophageal reflux. Reading Location: [place] [address] CC: ZACKARY Gagnon; Dr. Danielle Paige, DO ~ Doula: Signed [facility]03-12-2025 Procedure note [facility] Speech Pathology [address] [place] [address] Modified Barium Swallow Study MR#: [id number] Acct: [id number] Name: MARGIE FULTON Rep # :[id number] : 1940 84 From: Jazlyn Osorio, [facility]-CONCRETE BUSTER OPERATOR Modified Barium Swallow Patient Information Study Date: 09/24/24 Study Time: 13:30 Direct Billable Minutes: 79 Total Minutes procedure & reportin Diagnosis: Dysphaiga R13.10 Referring Physician: Savanna Gagnon Reason for Referral: Assess swallow function, assess risk for aspiration, and determine recommendations for least restrictive diet textures and compensatory strategies to improve safety of swallow. Medical History: Pt reports swallowing difficulty for >6months now, which is progressively getting worse. She reports coughing throughout the day sometimes w/o oral intakebut also w/ foods and drinks. She has a sensitive oral cavity, which after thrush treatment and further evaluation by her physicians was diagnosed as Sjogren's Syndrome. She currently takes omeprazole to manage GERD. CONCRETE BUSTER OPERATOR inspectedoral cavity and pt has hard, bony-like protrusions in FOM. Current Diet Ordered: Regular textures / Thin liquids Dentition: Natural Teeth Mental Status: WNL Respiratory Status: Oxygenating on Room Air Penetration-Aspiration Scale Penetration-Aspiration Scale: OBJECTIVE ASSESSMENT OF SWALLOW FUNCTION (QUANTITATIVE ? PER TRIAL): PENETRATION / ASPIRATION SCALE (COOMBS): 1 = does not enter airway 2 = enters airway/above vocal folds/ejected 3 = enters airway/above vocal folds/not ejected 4 = enters airway/contacts vocal folds/ejected 5 = enters airway/contacts vocal folds/not ejected 6 = enters airway/below vocal folds/ejected 7 = enters airway/below vocal folds/not ejected despite effort 8 = enters airway/below vocal folds/no effort VIDEOFLOROSCOPIC SCALE SCORE (COOMBS): Grade I = aspiration of material that has penetrated into the laryngeal vestibule, intact cough reflex Grade II = aspiration < 10 % of the bolus, intact cough reflex Grade III = aspiration of < 10 % of the bolus, reduced cough reflex or aspiration of > 10 % of the bolus, intact cough reflex Grade IV = aspiration of > 10 % of the bolus, reduced cough reflex Penetration-Aspiration Scale Score Thin Liquid via teaspoon: Result: 1= does not enter airway Thin Liquid via teaspoon Trial 2: Result: 1= does not enter airway Thin Liquid via large single sip: cup: Result: 1= does not enter airway [place] Thick Liquid via large single sip: cup: Result: 1= does not enter airway Pudding via teaspoon: Result: 1= does not enter airway Comment: Esophageal screen - Retention of pudding in the middle esophagus. Thin Liquid via single sip: straw: Result: 1= does not enter airway Comment: Esophageal screen - little to no improvement in pudding retention. 1/2 cookie: Result: 1= does not enter airway Comment: Esophageal screen - Retention of cookie in the middle and lower esophagus w/ retrograde flow to theupper esophagus Thin Liquid via sequential sips:straw: Result: 1= does not enter airway Comment: Esophageal screen - Cookie retention somewhat improved w/ liquid washes. Sequential sips provided 2X to clear retention to lower esophagus, continued retrograde flow to middle esophagus. Oral Phase Labial Seal: No Labial Escape Tongue Control During Bolus Hold: Cohesive bolus between tongue to palatal seal Bolus Preparation/Mastication: Timely and efficient chewing and mashing Bolus Transport/Lingual Motion: Brisk tongue motion Oral Residue: Residue collection on oral structures Pharyngeal Phase Initiation of Pharyngeal Swallow: Bolus head in valleculae Soft Palate Elevation: No bolus between soft palate and pharyngeal wall Laryngeal Elevation: Comp. Superior move thyroid cart w/comp. apprx arytenoid cart-epig pet Anterior Hyoid Excursion: Complete anterior movement Epiglottic Movement: Complete inversion Laryngeal Vestibule Closure at Height of Swallow: Incomplete; narrow column of air/contrast in laryngeal vestibule (trace laryngeal penetration 1X w/ complete ejection) Pharyngeal Stripping Wave: Present - complete Pharyngoesophageal Segment Opening: Complete distension and complete duration; no obstruction of flow Tongue Base Retraction: Trace column of contrast between tongue base & post. pharyngeal wall Pharyngeal Residue: Trace residue within or on pharyngeal structures Esophageal Phase Esophageal Clearance: Esophageal retention w/ retrograde flow below pharyngoesophageal seg. Diagnosis/Impression Diagnosis: Esophageal dysphagia R13.14 Impression: Oropharyngeal swallow function grossly WNL. The esophageal phase is primarily marked by... -Retention of pudding in the middle esophagus, with little to no improvement w/ thin liquid wash. -Retention of cookie in the middle and lower esophagus w/ retrograde flow to theupper esophagus, which somewhat improved w/ liquid washes. Sequential sips provided 2X to clear retention to lower esophagus, continued retrograde flow to middle esophagus. Recommendations Diet: Soft and Bite Sized Textures and Thin Liquids Comment: Recommend seeking more nutrition/hydration via liquids prior to GI intervention as these had much better esophageal clearance. When selecting solids, would recommend moist and soft foods. STOP meal if increased s/s of reflux, sensation of retention, or regurgitation despite use of strategies listed below and resume meal at a later time. Compensatory Strategies: Small Bites, Small Sips, Slow Rate, Alternate bites/solids and sips/liquids (Take multiple sips after each bite) and Sitting upright (During and 60min after a meal) Recommend Repeat Modified Barium Swallow: No Need for Skilled Speech Therapy Services: No Recommended Referrals: GI Consult (Follow w/ GI to manage esophageal dysphagia. Pt is ok for esophagram planned later this week.), Dental Evaluation (Bony-like protrusions in FOM, would have dentist evaluate) and Dietitian Consult (10lbs ofweight loss this year from swallowing problem. CONCRETE BUSTER OPERATOR recommending increased nutrition and calories via liquids.) Education Completed: 1. Described result of evaluation. Status Active ST Patient: Active Contact Information [facility]:: Jazlyn Fraser M.A. CCC-CONCRETE BUSTER OPERATOR? Speech-Language Pathologist?? [facility] [address] [place] [address]? [email or web address]?? [phone] 09/25/24 Miriam Golden CCC-CONCRETE BUSTER OPERATOR> Date/Time Jazlyn Fraser M.A., CCC-CONCRETE BUSTER OPERATOR Co-Signature Required for all Medicare patients Date/Time Co-Signature CC: ~ [facility]02-11-2025 Evaluation note* Diagnosis Onset Date Resolution Status Admit Date Cough acute August 27, 2024 1:07pm Dysphagia acute August 27, 2024 1:07pm Elevated alkaline phosphatas e level acute August 27 025 1:07pm Elevated AST (SGOT) acute Febr2024 1:07pm Weight loss acute August 1:07pm Gastroesophageal reflux disease noneactive August 27 025 1:07pm Asthma chronic September 05, 2024 8:01am [facility] Work Phone: 1(927) 973-572802-11-2025 Evaluation note* Diagnosis Onset Date Resolution Status Admit Date Cough acute August 27, 2024 1:07pm Dysphagia acute August 27, 2024 1:07pm Elevated alkaline phosphatas e level acute August 27 025 1:07pm Elevated AST (SGOT) acute 2024 1:07pm Weight loss acute August 1:07pm Gastroesophageal reflux disease noneactive August 27 025 1:07pm Asthma chronic September 05, 2024 8:01am Cough acute October 10 5:50am Dysphagia acute October 10 5:50am [facility] Work Phone: 1(390) 306-998802-11-2025 Evaluation note* Diagnosis Onset Date Resolution Status Admit Date Cough acute August 27, 2024 1:07pm Dysphagia acute August 27, 2024 1:07pm Elevated alkaline phosphatas e level acute August 27 025 1:07pm Elevated AST (SGOT) acute Febru 2024 1:07pm Weight loss acute August 1:07pm Gastroesophageal reflux disease noneactive August 27 025 1:07pm Asthma chronic September 05, 2024 8:01am Cough acute October 10 5:50am Dysphagia acute October 10 5:50am Abdominal pain acute October 17, 2024 12:49pm Abnormal US (ultrasound) of abdomen acute October 17, 2024 12:49pm Bloating acute October 17 12:49pm Elevated alkaline phosphatas e level acute October 17, 2024 12:49pm Personal history of lung cancer acute October 17, 2024 12:49pm Weight loss acute October 17 12:49pm [facility] Work Phone: 1([phone]) 637-332502-11-2025 Evaluation note* Diagnosis Onset Date Resolution Status Admit Date Cough acute August 27, 2024 1:07pm Dysphagia acute August 27, 2024 1:07pm Elevated alkaline phosphatas e level acute August 27 025 1:07pm Elevated AST (SGOT) acute 2024 1:07pm Weight loss acute August 1:07pm Gastroesophageal reflux disease noneactive August 27 025 1:07pm Asthma chronic September 05, 2024 8:01am Cough acute October 10 5:50am Dysphagia acute October 10 5:50am Abdominal pain acute October 17, 2024 12:49pm Abnormal US (ultrasound) of abdomen acute October 17, 2024 12:49pm Bloating acute October 17 12:49pm Elevated alkaline phosphatas e level acute October 17, 2024 12:49pm Personal history of lung cancer acute October 17, 2024 12:49pm Weight loss acute October 17 12:49pm Abnormal US (ultrasound) of abdomen acute November 12, 2024 8:54am Elevated CEA acute November 12, 2024 8:54am Epigastric pain acute October 8:54am Nausea acute November 12 8:54am Weight loss acute November 12 8:54am Gallbladder polyp acute November 8:55am Abdominal pain acute December 02, 2024 8:00am Abnormal US (ultrasound) of abdomen acute December 02, 2024 8 :00am [facility] Work Phone: 1(120) 524-918002-11-2025 Evaluation note* Diagnosis Onset Date Resolution Status Admit Date Cough acute August 27, 2024 1:07pm Dysphagia acute August 27, 2024 1:07pm Elevated alkaline phosphatas e level acute August 27 2 025 1:07pm Elevated AST (SGOT) acute 2024 1:07pm Weight loss acute August 1:07pm Gastroesophageal reflux disease noneactive August 27 2 025 1:07pm Asthma chronic September 05, 2024 8:01am Cough acute October 10 5:50am Dysphagia acute October 10 5:50am Abdominal pain acute October 17, 2024 12:49pm Abnormal US (ultrasound) of abdomen acute October 17, 2024 12:49pm Bloating acute October 17 12:49pm Elevated alkaline phosphatas e level acute October 17, 2024 12:49pm Personal history of lung cancer acute October 17, 2024 12:49pm Weight loss acute October 17 12:49pm Abnormal US (ultrasound) of abdomen acute November 12, 2024 8:54am Elevated CEA acute November 12, 2024 8:54am Epigastric pain acute October 8:54am Nausea acute November 12 8:54am Weight loss acute November 12, 025 8:54am Gallbladder polyp acute November 8:55am Abdominal pain acute December 02, 2024 8:00am Abnormal US (ultrasound) of abdomen acute December 02, 2024 8 :00am Nausea and vomiting acute November 152024 10:52am Seroma after procedure acute Ma 2024 10:52am [facility] Work Phone: [phone]) [phone] Note* Addendum Note - Vini Maurer MD - 04/11/2024 12:06 PM EDTAddended by: VINI MAURER on: 04/11/2024 12:06 PM Modules accepted: Orders [facility]09-26-2024 Telephone encounter Note* Telephone Encounter - Juliette Peacock RN - 04/11/2024 12:06 PM EDT Botox 100 units 10/16/24 at [facility] - 8th injection Previous injections: 04/11/24, 10/12/23, 03/09/23, 09/07/22, 03/02/22, 09/01/21, and 02/24/21 Botox 100 units approved thru 02/20/2025 - NPCR Ppx abx: Will need Blood thinners: n/a Juliette Peacock RN April 11, 2024 12:10 PM [facility] 04/11/24: Plan: Repeat botox 100 units in 6 months. If she develops worsening CHASE before then she should return PRNor if her Botox wears off before 6 months she should let us know and we can work to schedule sooner. Vini Maurer MD [facility]09-26-2024 Miscellaneous Notes* Telephone Encounter - Juliette Peacock RN - 04/11/2024 12:06 PM EDT Botox 100 units 10/16/24 at [facility] - 8th injection Previous injections: 04/11/24, 10/12/23, 03/09/23, 09/07/22, 03/02/22, 09/01/21, and 02/24/21 Botox 100 units approved thru 02/20/2025 - NPCR Ppx abx: Will need Blood thinners: n/a Juliette Peacock RN April 11, 2024 12:10 PM RAMY 04/11/24: Plan: Repeat botox 100 units in 6 months. If she develops worsening CHASE before then she should return PRNor if her Botox wears off before 6 months she should let us know and we can work to schedule sooner. Vini Maurer MD documented [facility] Miscellaneous Notes* Addendum Note - Vini Maurer MD - 04/11/2024 12:06 PM EDTAddended by: VINI MAURER on: 04/11/2024 12:06 PM Modules accepted: Orders [facility] History of Present illness Narrative* Vini Maurer MD - 04/11/2024 11:57 AM EDT Margie Fulton presents today for a intradetrusor Botox injections. Indication: Urinary urgency, Urge incontinence, OAB Last Botox: 10/12/23 100 units UNIVERSAL PROTOCOL / SAFETY CHECKLIST Procedure to be Performed: cystoscopy with botox 100 units Sign In: A Moment of CARE was completed. Personnel directly involved with the procedure wore the appropriate PPE (Personal Protective Equipment). Patient/Surrogate Stated/Verified: PATIENT VERIFIED(optional for EMERGENT procedures): Patient name, Date of , Relevant allergies, and The intended procedure Time Out Communication: Intended patient and procedure match the source documents. Consent documented and matches the intended procedure. Sign Out: SIGN OUT (optional for EMERGENT procedures): No specimen collected. All instruments, equipment, possible retained foreign bodies accounted for. PROCEDURE: Indication:OAB. The patient understands the RBA of intradetrusor Botox injection, including but notlimited to UTI, hematuria, urinary retention (dose dependent), treatment failure and transient weakness (rare). Brief description of procedure: After obtaining written informed consent, a time out was performed. The patient was placed in dorsal lithotomy position, then prepped and draped in the usual sterile fashion. 2% urethral lidocaine jelly was introduced into the urethra and allowed to take analgesic effect. Anesthesia: Intraurethral Lidocaine jelly 6 mL. Video-assisted cystourethroscopy was performed using a 19 Romanian 30 degree cystoscope with saline infusion. The cystoscope was advanced into the bladder. Next, the bladder was evaluated. Bilateral ureteral orifices were identified in normal orthotopic position. The bladder mucosa was evaluated in its entirety. There no bladder masses, stones, lesions or foreign bodies. No obvious etiologies for hematuriaor recurrent UTI. Next 100 units of Botox were reconstituted in 10 mL of preservative-free injectable saline and injected in 0.5 mL aliquots into the detrusor in a grid- like pattern. In all 20 injections were given. A1 mL normal saline flush was given to ensure all medication was administered. Finally, the cystoscope was removed from the bladder and the urethra evaluated again. The patient tolerated the procedure well and was given an immediate dose of periprocedural antibiotics. There were no complications. Findings: Normal bladder mucosa. No evidence of inflammation, stones, neoplasia, bladder diverticulum, trabeculations, or other bladder abnormalities. The bladder trigone and ureteral orifices were seen and no abnormalities noted. Normal urethra without inflammation, diverticulum, or other abnormality. Complications: none Procedure Summary: Patient tolerated procedure well. Medications: Prophylactic antibiotics Plan: Repeat botox 100 units in 6 months. If she develops worsening CHASE before then she should return PRNor if her Botox wears off before 6 months she should let us know and we can work to schedule sooner. Vini Maurer MD documented in [facility] encounter[facility] Telephone encounter Note * Telephone Encounter - Ny Moser APRN.CNP - 03/21/2024 5:41 PM EDT The following approved medication requests have been transmitted electronically. Requested Prescriptions Signed Prescriptions Disp Refills sulfamethoxazole-trimethoprim (BACTRIM DS) 800-160 mg per tablet 6 tablet 0 Sig: Take 1 tablet by mouth two times a day. Start one day before your bladder procedure. Authorizing Provider: [facility] Information Pharmacy Address Telephone [id number] [place] [address] Ny Moser APRN.CNP March 21, 2024 5:41 PM [facility]09-05-2024 Miscellaneous Notes* Telephone Encounter - Ny Moser APRN.CNP - 03/21/2024 5:41 PM EDT The following approved medication requests have been transmitted electronically. Requested Prescriptions Signed Prescriptions Disp Refills sulfamethoxazole-trimethoprim (BACTRIM DS) 800-160 mg per tablet 6 tablet 0 Sig: Take 1 tablet by mouth two times a day. Start one day before your bladder procedure. Authorizing Provider: [place] [facility] Information Pharmacy Address Telephone [id number] [place] [id number] Ny Moser APRN.CNP March 21, 2024 5:41 PM * Telephone Encounter - Marline Yi RN - 03/21/2024 4:37 PM EDT 100 units Botox approved through 07/16/24 - NPCR. Sending to heavy forging machine operator for ppx abx order. Marline Yi RN March 21, 2024 4:37 PM * Telephone Encounter - Marline Yi RN - 03/21/2024 1:46 PM EDT Botox 100 units 04/11 at with Oxana - 7th injection Previous injections: 10/12/23, 03/09/23, 09/07/22, 03/02/22, 09/01/21, and 02/24/21. PPX abx: Will need Blood thinners: Asa 81mg - still taking? Botox auth has been pending for a while. Emailed pharm auth to review. Marline Yi RN March 21, 2024 1:49 PM documented [facility] this [facility] Telephone encounter Note * Telephone Encounter - Marline Yi RN - 03/21/2024 4:37 PM EDT 100 units Botox approved through 07/16/24 - NPCR. Sending to heavy forging machine operator for ppx abx order. Marline Yi RN March 21, 2024 4:37 PM [facility]09-05-2024 Telephone encounter Note* Telephone Encounter - Marline Yi RN - 03/21/2024 1:46 PM EDT Botox 100 units 04/11 at with Oxana - 7th injection Previous injections: 10/12/23, 03/09/23, 09/07/22, 03/02/22, 09/01/21, and 02/24/21. PPX abx: Will need Blood thinners: Asa 81mg - still taking? Botox auth has been pending for a while. Emailed pharm auth to review. Marline Yi RN March 21, 2024 1:49 PM [facility]03-28-2024 NoteHNO ID: [id number] Author: VINI MAURER MD Service: ? Author Type: Physician Type: Progress Notes Filed: 10/12/2023 13:03 Note Text: Margie Fulton presents today for a intradetrusor Botox injections. Indication: Urinary urgency, Urge incontinence. UNIVERSAL PROTOCOL / SAFETY CHECKLIST Procedure to be Performed: cystoscopy with botox 100 units Sign In: A Moment of CARE was completed. Personnel directly involved with the procedure wore the appropriate PPE (Personal Protective Equipment). Patient/Surrogate Stated/Verified: PATIENT VERIFIED(optional for EMERGENT procedures): Patient name, Date of , Relevant allergies, and The intended procedure Time Out Communication: Intended patient and procedure match the source documents. Consent documented and matches the intended procedure. Sign Out: SIGN OUT (optional for EMERGENT procedures): No specimen collected. All instruments, equipment, possible retained foreign bodies accounted for. PROCEDURE: Indication: Urinary Urgency/Urinary Frequency/Urinary urge incontinence/ Neurogenic bladder/Interstitial Cystitis. The patient understands the RBA of intradetrusor Botox injection, including but not limited to UTI, hematuria, urinary retention (dose dependent), treatment failure and transient weakness (rare). Brief description of procedure: After obtaining written informed consent, a time out was performed. The patient was placed in dorsal lithotomy position, then prepped and draped in the usual sterile fashion. 2% urethral lidocaine jelly was introduced into the urethra and allowed to take analgesic effect. Anesthesia: Intraurethral Lidocaine jelly 6 mL. Video-assisted cystourethroscopy was performed using a 19 Romanian 30 degree cystoscope with saline infusion. The cystoscope was advanced into the bladder. Next, the bladder was evaluated. Bilateral ureteral orifices were identified in normal orthotopic position. The bladder mucosa was evaluated in its entirety. There no bladder masses, stones, lesions or foreign bodies. No obvious etiologies for hematuria or recurrent UTI. Next 100 units of Botox were reconstituted in 10 mL of preservative-free injectable saline and injected in 1 mL aliquots into the detrusor in a grid-like pattern. In all 10 injections were given. A 1 mL normal saline flush was given to ensure all medication was administered. Finally, the cystoscope was removed from the bladder and the urethra evaluated again. The patient tolerated the procedure well and was given an immediate dose of periprocedural antibiotics. There were no complications. Findings: Normal bladder mucosa. No evidence of inflammation, stones, neoplasia, bladder diverticulum, trabeculations, or other bladder abnormalities. The bladder trigone and ureteral orifices were seen and no abnormalities noted. Normal urethra without inflammation, diverticulum, or other abnormality. Complications: none Procedure Summary: Patient tolerated procedure well. Medications: Prophylactic antibiotics Plan: Repeat botox 100 units in 6 months. If she develops worsening CHASE before then she should return PRN. Vini Maurer [facility]01-18-2024 Procedure [facility]04-26-2021 NoteDischarge Summary: Cardiothoracic Surgery Margie Fulton :1940 AGE: 80 y.o. ADMIT DATE: 11/05/2020 DISCHARGE DATE: 11/09/2020 DISCHARGING SURGEON: Rosemarie Mckeon MD, Office Number: [phone] PRIMARY CARE PHYSICIAN: DANIELLE PAIGE VISIT STATUS: Admission CODE STATUS: Full Code SURGERY: right thoracotomy, right upper lobectomy, level 7, 8R, 9R, 10FR lymphadenectomy 11/05/2020 HOSPITAL COURSE: Margie Fulton was admitted on 11/05/2020 for the above [...] response (paroxysmal, unrelated to thoracotomy) DISCHARGE MEDICATIONS: Margie Fulton Home Medication Instructions LC:[id number] Printed on:11/09/20 3074 Medication Information ALBUTEROL SULFATE IN Inhale into [...] us. SIGNED: Rajni Hwang MD 11/09/2020, 2:38 [facility]04-26-2021 History of Present illness Narrative* Rajni Hwang MD - 11/09/2020 7:51 AM EDT Images from the original note were not [...] - TTE pending - Gen diet - Gerardo duonebs, IS, acapella - PRN pain/nausea meds - OOB, ambulate - DVT PPx - D/w Dr. Mckeon Disclaimers: INFORMED CONSENT: The nature and purpose of the proposed treatment and/or procedure have been discussed. The risks and benefits of the proposed treatment or procedures have been reviewed. Alternatives have been reviewed in addition to the risks and benefits of not receiving treatments or undergoingprocedures. Pursuant to this discussion, the patient agrees to undergo the proposed treatment or procedure. Captured images seen in this note are not a substitute for a comprehensive interpretation of the entire data set as reflected by the interpreting physician with regard to radiology, echocardiography,and other diagnostic images. This note may have been dictated using Essenza Software Medical Practice Edition 2.6 and/or [employer]Gen[employer]ec Voice Recognition Feature. The document was proofread; however, unrecognized voice recognition slater apprentice errors may be present. Associated attestation - Rosemarie Mckeon MD - 11/09/2020 12:49 PM EDT I personally performed a face to face diagnostic evaluation on this patient. I agree with the findings and plan of care as documented by the resident/HABILITATION ASSISTANT/COSMETICS DEMONSTRATOR/PA, unless otherwise noted. Rosemarie Mckeon MD * Grisel Garcia APRN - CHIEF 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 - 11/08/2020 11:03 AM EDT PAGING: The Acute Pain Service providers are available via Orbital Traction. Please reference Toolwi for Pain Management Provider PAYABLE PROCESSOR and direct all questions to the provider listed. Due to the current environment of [place] [address], PPE was worn for the duration of all face to face encounters including but not limited to an N95 in accordance with [facility] and hospital guidelines. 11/08/2020 Referring Physician: Rosemarie Mckeon MD Subjective: We have been asked [...] Pt appears well, comfortable. Pt talkative and cooperativethroughout exam, happy with current pain regimen, states [...] Hcl 5 MG Tablet 60.00 8 [facility] [id number] Rit (0102) 0 56.25 MME Objective Findings: [...] deep breathing, digestion, circulation and your body's abilityto heal itself. Patient pain is well controlled at this time on current pain regimen. We will sign off at this time. Please re-consult our service if patient's pain becomes uncontrolled. Thank you for inviting us toparticipate in the care of this patient. Plan discussed with patient who appears to understand and agrees. PAGING: The Acute Pain Service providers are available via Orbital Traction. Please reference Toolwi for Pain Management Provider PAYABLE PROCESSOR and direct all questions to the provider listed. * Rajni Hwang MD - 11/08/2020 6:51 AM EDT Images from the original note were not [...] 25 mg TID - Gen diet - Gerardo duonebs, IS, acapella - PRN pain/nausea meds - OOB, ambulate - DVT PPx - D/w Dr. Scott, power generation turbine room operator for Dr. Mckeon Disclaimers: INFORMED CONSENT: The nature and purpose of the proposed treatment and/or procedure have been discussed. The risks and benefits of the proposed treatment or procedures have been reviewed. Alternatives have been reviewed in addition to the risks and benefits of not receiving treatments or undergoingprocedures. Pursuant to this discussion, the patient agrees to undergo the proposed treatment or procedure. Captured images seen in this note are not a substitute for a comprehensive interpretation of the entire data set as reflected by the interpreting physician with regard to radiology, echocardiography,and other diagnostic images. This note may have been dictated using Essenza Software Medical Practice Edition 2.6 and/or N[employer] Voice Recognition Feature. The document was proofread; however, unrecognized voice recognition slater apprentice errors may be present. Associated attestation - Luis M Scott MD - 11/08/2020 10:36 AM EDT I independently saw and evaluated the patient - including reviewing the labs, imaging studies, and available documentation. I agree with the findings and plan of care as documented by the resident/HABILITATION ASSISTANT/COSMETICS DEMONSTRATOR/PA, unless otherwise noted. Please do not hesitate to contact me/us if you have any questions or concerns. Luis M Scott MD FACS * Imer Sheridan MD - 11/08/2020 1:[address] Surgery Brief Progress Note Patient still [...] Surgery PGY1 Pager [phone] 11/08/2020 1:48 AM * Imer Sheridan MD - 11/08/2020 12:[address] Surgery Brief Progress Note Patient seen and examined at the bedside. Patient had increasing heart rate develop out of no where tonight. She states that she has no n/v, f/c, dyspnea, lightheadedness, weakness, or syncope. She states she went to the bathroom, and RN confirmed there was no spike in HR or drop in BP. Patientdoes state that she has a little chest [...] Surgery PGY1 Pager [phone] 11/08/2020 12:26 AM * Sheila Becerra RN - 11/07/2020 11:57 PM EDT Pts air sampling and monitoring alarming with heart rate in the 170's. Nursing staff arrived in pts room, pt asymptomatic. Vital signs taken. Dr. Sheridan paged. EKG ordered. New orders put in. Will continue to monitor. * Destiney Hicks RCP - 11/07/2020 9:35 PM EDT Patient Evaluation Form The patient is currently [...] as appropriate) NO Changing Therapy to BID * Shabana Shaw DTR - 11/07/2020 4:28 PM EDT Nutrition rescreen completed. Chart reviewed. Patient to be monitored and followed by the diet artificial insemination technician. * Rajni Hwang MD - 11/07/2020 10:02 AM EDT Images from the original note were not included. Cardiothoracic Surgery Progress Note 11/07/2020 10:03 AM Subjective: Admit Date: 11/05/2020 PCP: DANIELLE PAIGE Interval History: 11/05 R thoracotomy, RUL resection, lymphadenectomy Subjective: No acute events overnight Pain controlled on SANDSTONE SPLITTER No nausea/vomiting, fevers, or chills Non-labored breathing [...] 95% BMI 24.10 kg/m I/O: Date 11/07/20 0000 - 11/07/20 2359 Shift 3910-0371 2777-9887 9346-8406 24 Hour Total INTAKE Shift Total(mL/kg) OUTPUT [...] DC chest tube - Gen diet - Gerardo mert, IS, acapella - Acute pain following, appreciate continued recs. Wean IV meds as able - Potential dc home tomorrow - D/w Dr. Scott, power generation turbine room operator for Dr. Mckeon Disclaimers: INFORMED CONSENT: The nature and purpose of the proposed treatment and/or procedure have been discussed. The risks and benefits of the proposed treatment or procedures have been reviewed. Alternatives have been reviewed in addition to the risks and benefits of not receiving treatments or undergoingprocedures. Pursuant to this discussion, the patient agrees to undergo the proposed treatment or procedure. Captured images seen in this note are not a substitute for a comprehensive interpretation of the entire data set as reflected by the interpreting physician with regard to radiology, echocardiography,and other diagnostic images. This note may have been dictated using Essenza Software Medical Practice Edition 2.6 and/or NGen[employer] Voice Recognition Feature. The document was proofread; however, unrecognized voice recognition slater apprentice errors may be present. Associated attestation - Luis M Scott MD - 11/07/2020 10:33 AM EDT I independently saw and evaluated the patient - including reviewing the labs, imaging studies, and available documentation. I agree with the findings and plan of care as documented by the resident/HABILITATION ASSISTANT/COSMETICS DEMONSTRATOR/PA, unless otherwise noted. Please do not hesitate to contact me/us if you have any questions or concerns. Luis M Scott MD FACS * Grisel Garcia, CASTING AND 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 - 11/07/2020 9:30 AM EDT PAGING: The Acute Pain Service providers are available via Orbital Traction. Please reference Toolwi for Pain Management Provider PAYABLE PROCESSOR and direct all questions to the provider listed. Due to the current environment of [place] [address], PPE was worn for the duration of all face to face encounters including but not limited to an N95 in accordance with CDC and hospital guidelines. 11/07/2020 Referring Physician: Rosemarie Mckeon MD Subjective: We have been asked [...] pain regimen, but would like to discontinue SANDSTONE SPLITTER today. Tolerating diet, denies n/v. Patient educated [...] Hcl 5 MG Tablet 60.00 8 [facility] [id number] Rit (0102) 0 56.25 MME Objective Findings: [...] lymphadenectomy on 11/05. PO regimen today Discontinue SANDSTONE SPLITTER, start PO regimen today, pt agreeable. Oxycodone [...] deep breathing, digestion, circulation and your body's abilityto heal itself. Will follow. Plan discussed with patient who appears to understand and agrees. PAGING: The Acute Pain Service providers are available via Orbital Traction. Please reference Toolwi for Pain Management Provider PAYABLE PROCESSOR and direct all questions to the provider listed. * Rajni Hwang MD - 11/06/2020 5:42 AM EDT Images from the original note were not included. Cardiothoracic Surgery Progress Note 11/06/2020 5:42 AM Subjective: Admit Date: 11/05/2020 PCP: DANIELLE PAIGE Interval History: 11/05 R thoracotomy, RUL resection, lymphadenectomy Subjective: No acute events overnight Pain controlled on SANDSTONE SPLITTER No nausea/vomiting, fevers, or chills Non-labored breathing [...] 99% BMI 24.10 kg/m I/O: Date 11/06/20 0000 - 11/06/20 2359 Shift 5504-8780 2386-5910 3150-4000 24 Hour Total INTAKE P.O.(mL/kg/hr) 240 240 [...] into the skin once Twice yearly Historical ProviderMD OMEPRAZOLE PO Take 40 mg by mouth [...] diet, HLIV - DC art line - Gerardo mert IS, acapella - Acute pain following, appreciate continued recs - Transfer to Telemetry floor - D/w Dr. Mckeon Disclaimers: INFORMED CONSENT: The nature and purpose of the proposed treatment and/or procedure have been discussed. The risks and benefits of the proposed treatment or procedures have been reviewed. Alternatives have been reviewed in addition to the risks and benefits of not receiving treatments or undergoingprocedures. Pursuant to this discussion, the patient agrees to undergo the proposed treatment or procedure. Captured images seen in this note are not a substitute for a comprehensive interpretation of the entire data set as reflected by the interpreting physician with regard to radiology, echocardiography,and other diagnostic images. This note may have been dictated using [employer]2Stats Practice Edition 2.6 and/or NGen[employer]ec Voice Recognition Feature. The document was proofread; however, unrecognized voice recognition slater apprentice errors may be present. Associated attestation - Rosemarie Mckeon MD - 11/06/2020 12:00 PM EDT I personally performed a face to face diagnostic evaluation on this patient. I agree with the findings and plan of care as documented by the resident/HABILITATION ASSISTANT/COSMETICS DEMONSTRATOR/PA, unless otherwise noted. Rosemarie Mckeon MD * Ila Flynn RN - 11/05/2020 7:18 PM EDT Chest xray at bedside * Ila Flynn RN - 11/05/2020 6:47 PM EDT Pt arrived to PACU from OR. Pt ID verified. Monitors applied with alarms on. Vital signs stable. documented in this encounterSUMMA Work Phone: 1(999) 963-559904-23-2021 Hospital Discharge instructions* Instructions* Rajni Hwang MD - 11/06/2020 Images from the original note were not included. [facility]: Cardiothoracic Surgery [address] [facility] (T): #[phone] (F): #[phone] After lung surgery, it is common to [...] avoid lifting anything that would make you strain.This may include a child, heavy grocery bags and milk containers, a heavy briefcase or backpack, cat litter or dog food bags, or a vacuum venetian blind cleaner and repairer. If your incision is in the front [...] be off all narcotic and sedative medications priorto returning to driving. Ok to shower. Avoid [...] will be removed at your follow-up visit 10- 14 days with your provider. Also, sutures from drains/tubes will be removed at this time. Continue to follow discharge stretching exercises outlined below. Start each exercise slowly. Ease off the exercises if you start to have pain. Shoulder Stretch 1. applied marine physics professor a doorway and place one arm against [...] medication prescribed on discharge from the hospital. Ifyou are prescribed oxycodone/acetaminophen (Percocet) or hydrocodone/acetaminophen ([place]/Vicodin) be cautious when taking additional tylenol. No [...] needed next to incision but not on yourincision. -Ice packs applied for 20 minutes then off for at least 20 minutes before reapplying. Call your Surgeon or return to the Emergency Room if you experience: -New or increased pain. -New or increased bleeding. -Nausea & vomiting. -Fever & chills. -Shortness of breath. -Chest pain. -Abdominal distention. documented in this [facility] Work Phone: Consult note Author Alex Rudolph [facility] Note Date/Time October 10, 2024 6:4 0am [facility] Medical Records Department [address] [place] [id number] Pre-Anesthesia Evaluation 10/10/24 0633 MR#: [id number] Acct: [id number] Name: MARGIE FULTON Rep # :[id number] : 1940 84 From: Alex Rudolph MD PCP: Dr. Danielle Paige, DO Status:REG SDC Y Race: C Location: [place] [address] ASA Classification* ASA Classification ASA Classification: 2 Assessment & Plan Anesthesia* Anesthesia Assessment Anesthesia Assessment: Discussed sedation and/or anesthesia options, risks, benefits, and alternatives with patient/parents/legal guardian/POA. Questions invited. The patient/parents/legal guardian/POA seems to understand and agrees to proceedwith anesthesia plan. Reviewed the physical assessment, medical history, allergy history and patient home medications list prior to surgery/procedure/anesthetic and documented any changes. Performed airway and anesthesia risk assessments. Anesthesia Type Anesthesia Type: MAC History Source History Obtained from:: Patient and Chart Anesthesia Focused Assessment* Temperature: 98.1 F Pulse Rate: 79 Blood Pressure: 112/73 Respiratory Rate: 16 Pulse Ox: 99 Oxygen Delivery Method: Room Air Airway Assessment Mouth opens: >3 cm Mallampati Score: IV Teeth Condition: Intact Neck Range of motion (ROM): Full ROM Focused Labs Anesthesia Preop lab: CBC WBC 4.9 K/mm3 (4.4-11.0) 08/07/24 09:08 08/07/24 RBC 4.19 M/mm3 (4.2-5.4) L 08/07/24 09:08 08/07/24 Hgb 12.6 g/dL (12.0-15.0) 08/07/24 09:08 08/07/24 Hct 40.2 % (37-47) 08/07/24 09:08 08/07/24 Plt Count 289 K/mm3 (150-450) 08/07/24 09:08 08/07/24 CHEMISTRY Potassium 3.8 mmol/L (3.5-5.1) 08/07/24 09:08 08/07/24 Sodium 140 mmol/L (136-145) 08/07/24 09:08 08/07/24 Magnesium 2.2 mg/dL (1.6-2.6) 01/26/23 10:33 01/26/23 BUN 19 mg/dL (7-18) H 08/07/24 09:08 08/07/24 Creatinine 0.81 mg/dL (0.55-1.02) 08/07/24 09:08 08/07/24 Glucose 87 mg/dL (74-106) 08/07/24 09:08 08/07/24 TSH 2.000 uIU/mL (0.358-3.740) 08/07/24 09:08 07/18 09/10 COAG PT 12.6 SECONDS (11.7-14.9) 08/18/20 13:37 Pre-Assessment Diagnosis/Proposed Procedure Planned Operative Procedure(s): EGD Anesthesia History Anesthesia History - clinical services director: Anesthesia History - clinical services director Hx Hospitalization No 10/08/24 11:46 Any Problems With Anesthesia No 10/08/24 11:46 Cholinesterase deficiency No 10/08/24 11:46 You/Your Family Experience No 10/08/24 11:46 fever (hyperthermia) with Relationship Recent Exposure to Contagious No 10/10/24 06:17 Disease Does patient have nerve No 10/08/24 11:46 stimulator Patient instructed to have device shut off --Does patient have Pacemaker No 10/10/24 06:17 or ICD? When Was Last Pacemaker Check QUESTION #4 FULL TEXT: You/Your Family Experience fever (hyperthermia) with Anesthesia Last Oral Intake Last Oral intake: Last Oral Intake NPO since 05:00 10/10/24 06:17 Meds taken in AM with sips of Yes 10/10/24 06:17 water? Meds patient instructed to see med rec 10/10/24 06:17 take am of surgery Any additional information?: Yes Meds taken in AM with sips of water?: Yes PONV PONV - clinical services director: PONV - clinical services director Female Yes 10/08/24 11:46 HX of Motion Sickness No 10/08/24 11:46 HX of N/V After Surgery No 10/08/24 11:46 Non-Smoker Yes 10/08/24 11:46 Duration of Surgery greater No 10/08/24 11:46 than 60 minutes Number of Risk Factors 2 10/08/24 11:46 PONV Score Moderate Risk 10/08/24 11:46 Height & Weight Height & Weight: Anesthesia: Height & Weight Height 5 ft 3 in 10/10/24 06:17 Weight: 61.4 kg 10/10/24 06:17 Body Mass Index (BMI) 24.0 10/10/24 06:17 Respiratory Assessment Respiratory Assessment - clinical services director: Respiratory Tract Infection Hx - clinical services director Hx Respiratory Tract Infection No 10/08/24 11:46 Any additional information?: Yes Hx Respiratory Tract Infection: Yes (Patient has a chronic cough. Nothing acute.) STOP Sleep Apnea STOP Sleep Apnea - clinical services director: STOP Sleep Apnea - clinical services director Hx Hypertension No 10/08/24 11:46 Hx Sleep Apnea No 10/08/24 11:46 CPAP No 10/08/24 11:46 BIPAP No 10/08/24 11:46 Do you snore loudly (louder No 10/08/24 11:46 than talking or can be heard Do you often feel tired/ No 10/08/24 11:46 fatigued/ sleepy during daytime? Has anyone observed you stop No 10/08/24 11:46 breathing during sleep? STOP Results Negative 10/08/24 11:46 QUESTION #5 FULL TEXT : Do you snore loudly (louder than talking or can be heard through closed doors)? Tobacco Use History Tobacco Use History - clinical services director: Tobacco Use History - clinical services director Tobacco Use Smoking Status Never smoker 10/08/24 11:46 Hx Tobacco Use No 10/08/24 11:46 Years Smoking Packs Smoked per Day Smoking Cessation Date was within the last 15 years Hx Smoking Cessation Date Hx Smoking Cessation Counseling Hematologic Medial History Hematologic Hx - clinical services director: Hematologic Medical Hx - community service representative Hx of Blood Transfusion Yes 10/08/24 11:46 Hx of Transfusion in last 3 No 10/08/24 11:46 Months Date of Last Transfusion (if within last 3 months) Ever experience any problems No 10/08/24 11:46 with transfusion(s)? Specify any problems Hx of Preganancy in last 3 No 10/08/24 11:46 Months Nurse Filling Out Transfusion VCHRISTIN 10/08/24 11:46 & Questions: Date: 10/08/24 10/08/24 11:46 Time: 11:47 10/08/24 11:46 Patient unable to answer at this time (ie. confused, unrespo /Reproduction History /Reproductive History - clinical services director: /Reproductive Hx- clinical services director Hx Now Gestational Age (in weeks): EDC: Hx Hx Para Hx Section SAB PFSH Medical History Wears glasses Post-menopausal Cancer Thyroid disease Gastric reflux Non-smoker Shortness of breath on exertion Chronic cough Leg cramps Normal Holter exam History of echocardiogram History of stress test Cardiology follow-up encounter Chest pain RLS (restless legs syndrome) Osteoporosis Arthritis Hyperlipidemia Tachycardia Asthma Lung nodules Home Medications ?Medication ?Instructions ?Recorded ?Last Taken ?Type denosumab 60 mg/mL subcutaneous 60 mg subcut .Q6 MONTH S 04/17/20 Unknown History syringe omeprazole 40 mg capsule,delayed 40 mg PO DAILY Unknown History release liothyronine 5 mcg tablet (Cytomel) 5 mcg PO DAILY 01/0610/10/24 05:00 History calcium 600 mg (as 1 tab PO BID 09/11/23 Unknow n History carbonate)-vitamin D3 20 mcg (800 unit) tablet mecobalamin (vitamin B12) 1,000 1,000 mcg PO DAILY Unknown History mcg chewable tablet diltiazem HCl 30 mg tablet 30 mg PO QDAY 10/04/2309/15 05:00 History sulindac 200 mg tablet 200 mg PO BID 08/26/24 Unkno wn History cholecalciferol (vitamin D3) 25 25 mcg PO DAILY Unknown History mcg (1,000 unit) capsule (Vitamin D3) magnesium 250 mg tablet 250 mg PO DAILY 10/08/24 Unk nown History Allergy/AdvReac Type Severity Reaction Status Date / Time No Known Allergies Allergy Verified 10/10/24 06:15 Family History Mother Rheumatoid arthritis Father Rheumatoid arthritis Other Malignant neoplasm determined by biopsy of testicle Surgical History History of lobectomy of lung H/O vaginal surgery History of surgery on upper extremity Complete tear of sacrospinous ligament Cataract fragments of eye following cataract surgery History of genitourinary surgery S/P cervical spinal fusion Hx of repair of rotator cuff H/O hand surgery History of total right knee replacement (TKR) Social History Smoking Status: Never smoker alcohol intake: current alcohol intake frequency: a few times a week Alcohol type: wine substance use type: does not use Review of Systems (Anesthesia) ROS Narrative System reviewed and no additional complaints, except as documented. 10/10/24 0640 <Electronically signed by Alex xie MD> Date _ [facility] Rudolph [facility] Signature: Date CC: ~ Signed [facility] Work Phone: Consult note Author AA [facility] Note Date/Time October 10, 2024 7:5 3am [facility] Medical Records Department [address] [address] Anesthesia Postop Eval I 10/10/24 0752 MR#: [id number] Acct: [id number] Name: MARGIE FULTON NOHEMI Rep # :[id number] : 1940 84 From: Rocky Worthy PCP: Dr. Danielle Paige, DO Status:REG SDC Y Race: C Location: [place] [address] Anesthesia: Postop Eval I Current Vital Signs Temperature: 97.6 F Pulse Rate: 88 Blood Pressure: 101/72 Respiratory Rate: 16 Pulse Ox: 97 Oxygen Delivery Method: Room Air Assessment Airway patent: Yes Spontaneous unlabored respirations: Yes Mental status: Awake and Calm nausea: No Vomiting: No Anesthesia Complication: No Fluid Hydration Crystalloid volume administer (ml): 30 Total IV fluid infused: 30 Progress Note Anesthesia document: Postop Eval 1 completed: Yes 10/10/24752 <Electronically signed by Rocky Worthy > Date _ Rocky Alvarez Signature: Date CC: ~ Signed [facility] Work Phone: Consult note Author Duc rizwana [facility] Note Date/Time December 02, 2024 1:25p m [facility] Medical Records Department [address] [place] [address] Anesthesia Postop Eval II 12/02/24 1147 MR#: [id number] Acct: [id number] Name: MARGIE FULTON NOHEMI Rep # :[id number] : 1940 84 From: Duc Muir MD PCP: Dr. Danielle Paige, DO Status:REG SDC Y Race: C Location: [place] [address] Anesthesia Postop Eval I Sum Postop Eval Completion status Anesthesia document: Postop Eval 1 completed: Yes Anesthesia Postop Eval I Summary Anesthesia Postop Eval I Summary: Anesthesia Postop Eval I: Assessment Summary Airway patent Yes 12/02/24 11:03 BIOLOGY FACULTY MEMBER.JDEF Spontaneous unlabored Yes 12/02/24 11:03 BIOLOGY FACULTY MEMBER.JDEF respirations Mental status Awake 12/02/24 11:03 BIOLOGY FACULTY MEMBER.JDEF nausea No 12/02/24 11:03 BIOLOGY FACULTY MEMBER.JDEF Vomiting No 12/02/24 11:03 BIOLOGY FACULTY MEMBER.JDEF Anesthesia Postop Eval I: Fluid Summary Crystalloid volume administer ,100 12/02/24 11:03 BIOLOGY FACULTY MEMBER.JDEF (ml) Colloids volume administered ( ml) Blood Product volume administered (ml) Total IV fluid infused ,100 12/02/24 11:03 BIOLOGY FACULTY MEMBER.JDEF Anesthesia Postop Eval I: Summary Notes Anesthesia Complication No 12/02/24 11:03 BIOLOGY FACULTY MEMBER.JDEF Anesthesia Complication Comment: Post-operative progress note Anesthesia: Postop Eval II Evaluation Mental status: Awake Pain Level: 2 nausea: No Vomiting: No 12/02/24 1147 <Electronically signed by Duc Muir MD > Date _ Duc Muir MD Cosigner Signature: Date CC: ~ Signed [facility] Work Phone: Evaluation note* Diagnosis Nodule of apex of right lung- Primary documented in this encounter [facility] Work Phone: Evaluation noteNo assessment information available [facility] Work Phone: Evaluation note* Diagnosis Onset Date Resolution Status Asthma chronic [facility] Work Phone: Evaluation note* Diagnosis Onset Date Resolution Status Asthma chronic Asthma chronic [facility] Work Phone: Evaluation note* Diagnosis Onset Date Resolution Status Asthma chronic SOB (shortness of breath) [facility] Work Phone: Evaluation note* Diagnosis Onset Date Resolution Status SOB (shortness of breath) [facility] Work Phone: Evaluation note* Diagnosis Prophylactic antibiotic- Primary Encounter for long-term (current) use of antibiotics [facility] OAB (overactive bladder)- Primary Hypertonicity of bladder [facility] Aron Frank [facility] Note Date/Time October 10, 2024 7:0 9am [facility] Medical Records Department [address] [place] [address] History & Physical Exam 10/10/24 0707 MR#: [id number] Acct: [id number] Name: MARGIE FULTON Rep # :[id number] : 1940 84 From: Aron Frank DO PCP: Dr. Danielle Paige DO Status:REG [facility] Location: [place] [address] HPI - General General Date of Admission: 10/10/24 Date of Service: 10/10/24 Chief Complaint: Cough and dysphagia HPI Narrative MARGIE FULTON, is a 84 F who presents for the endoscopic valuation of cough and dysphagia Omeprazole 40mg daily LABS 08/07/2024 HGB 12.6, PLT 289, AST 38, ALP 177, CRP 9.19 01/24/2024 CEA 10.2 - denies any change in habits - denies any bleeding - non-productive cough with swallowing - dysphagia - upper esophagus - solids - intermittent - denies any H/O CVA ENT - prior to 2021 - due to cough and hoarseness - states laryngoscopy was negative [facility] lung CA - lobe ectomy October 2021 - no chemo or radiation - denies any kidney or cardiac issues - Colonoscopy 5 years ago was normal per patient - remains active - continues to drive - lives alone [facility] Medical History Wears glasses Post-menopausal Cancer Thyroid disease Gastric reflux Non-smoker Shortness of breath on exertion Chronic cough Leg cramps Normal Holter exam History of echocardiogram History of stress test Cardiology follow-up encounter Chest pain RLS (restless legs syndrome) Osteoporosis Arthritis Hyperlipidemia Tachycardia Asthma Lung nodules Home Medications ?Medication ?Instructions ?Recorded ?Last Taken ?Type denosumab 60 mg/mL subcutaneous 60 mg subcut .Q6 MONTH S 04/17/20 Unknown History syringe omeprazole 40 mg capsule,delayed 40 mg PO DAILY Unknown History release liothyronine 5 mcg tablet (Cytomel) 5 mcg PO DAILY 01/0610/10/24 05:00 History calcium 600 mg (as 1 tab PO BID 09/11/23 Unknow n History carbonate)-vitamin D3 20 mcg (800 unit) tablet mecobalamin (vitamin B12) 1,000 1,000 mcg PO DAILY Unknown History mcg chewable tablet diltiazem HCl 30 mg tablet 30 mg PO QDAY 10/04/2309/15 05:00 History sulindac 200 mg tablet 200 mg PO BID 08/26/24 Unkno wn History cholecalciferol (vitamin D3) 25 25 mcg PO DAILY Unknown History mcg (1,000 unit) capsule (Vitamin D3) magnesium 250 mg tablet 250 mg PO DAILY 10/08/24 Unk nown History Allergy/AdvReac Type Severity Reaction Status Date / Time No Known Allergies Allergy Verified 10/10/24 06:15 Family History Mother Rheumatoid arthritis Father Rheumatoid arthritis Other Malignant neoplasm determined by biopsy of testicle Surgical History History of lobectomy of lung H/O vaginal surgery History of surgery on upper extremity Complete tear of sacrospinous ligament Cataract fragments of eye following cataract surgery History of genitourinary surgery S/P cervical spinal fusion Hx of repair of rotator cuff H/O hand surgery History of total right knee replacement (TKR) Social History Smoking Status: Never smoker alcohol intake: current alcohol intake frequency: a few times a week Alcohol type: wine substance use type: does not use ROS Constitutional Constitutional: Denies fatigue, fever(s), poor appetite, weight gain or weight loss Gastrointestinal Gastrointestinal: Denies belching, bloating, change in bowel habits, change in stool character, chewing difficulty, coffee ground emesis, constipation, cramping, diarrhea, dyspepsia, dysphagia, early satiety, excessive flatus, fecalincontinence, heartburn, hematemesis, hematochezia, hemorrhoids, loose stools, melena, nausea, odynophagia, rectal bleeding, tenesmus, vomiting or weight changes Vital Signs Vital Signs Vital Signs: 10/10/24 06:17 10/10/24 06:17 10/10/24 06:40 Temperature 98.1 F 98.1 F Temperature Source Temporal Pulse Rate 79 79 Respiratory Rate 16 16 Respiratory Pattern Normal Blood Pressure 112/73 112/73 Blood Pressure Mean 86 Blood Pressure Source Monitor Blood Pressure Position Sitting Blood Pressure Location Right Arm Pulse Ox 99 99 Oxygen Delivery Method Room Air Room Air Weight Weight: 135 lb 5.821 oz Body Mass Index (BMI) 24.0 Physical Exam Const alert, oriented x3, no apparent distress and healthy appearing General Appearance: cooperative GI normal to inspection, nondistended, normoactive bowel sounds, soft to palpation,non-tender and non-distended Percussion: normal to percussion Rectal Exam: deferred Assessment & Plan Assessment/Plan (1) Cough: (2) Dysphagia: PLAN: Assessment and Plan Assessment and Plan (1) Gastroesophageal reflux disease: (2) Dysphagia: Status: Acute (3) Cough: Status: Acute (4) Weight loss: Status: Acute (5) Elevated alkaline phosphatase level: Status: Acute (6) Elevated AST (SGOT): Status: Acute Orders: Orders Swallowing Function w/Video 08/27/24 R05.9 - Cough, unspecified, R13.10 - Dysphagia, unspecified, R63.4 - Abnormal weight loss Esophagus Dual Contrast 08/27/24 R05.9 - Cough, unspecified, R13.10 - Dysphagia, unspecified, R63.4 - Abnormal weight loss Liver Profile 1 Month R74.01 - Elevation of levels of liver transaminase levels, R74.8 - Abnormal levels of other serum enzymes GGTP 1 Month R74.01 - Elevation of levels of liver transaminase levels, R74.8 -Abnormal levels of other serum enzymes Plan 84y/o female presents for consultation with complaints of hoarseness, cough and GERD. PMH of tachycardiac, COPD, lung nodule s/p right upper lobe ectomy, HLD. Cardiac w/u for SOB December 2023 with normal stress test and EF 60%. UGI symptoms are postprandial but does endorse coughing with swallowing. Denies any N/V. She is taking Omeprazole 40mg daily x2 years and reports no improvement in cough. She does experience intermittent upper esophageal dysphagia with solids. She reports a decrease in appetite and weight loss of 10lbs over the past six months. Labs completed 08/07/2024 reveal AST 38, ALP 177, CRP 9.19. I have scheduled her for MBS/Esophagram and EGD. She will repeat labs in 1 month. Patient Instructions: Labs 1 month EGD MBS and Esophagram Continue daily PPI 10/10/24 0709 <Electronically signed by Aron Frank DO> Cosigner Signature (if applicable): CC: Dr. Danielle Paige DO; Aron Frank, DO~ Signed [facility] Work Phone: Hospital Discharge instructionsAmbulatory Orders* 12 Lead EKG [[facility]] Location: None Selected [facility] Work Phone: Reason for referral (narrative)No reason for referral information availableWooOhioHealth [facility] Work Phone: Summary Purpose Family History No Family History Records Found Relationship Condition Age at Onset Recorded Date/T meenu Not Specified No pertinent family history Unknown Relationship Condition Age at Onset Recorded Date/T meenu Not Specified Malignant neoplasm d etermined by biopsy of testicle Unknown mother Rheumatoid arthritis Unknown father Rheumatoid arthritis Unknown Advance Directives No Advanced Directives Records FoundDocuments on File Type Date Recorded 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 ACP-Advance Directive 11/02/2020 12:00 AM Latest Code Status on File Code Status Date Activated Date Inactivated Comments Full Code 11/05/2020 7:12 PM Full Code 11/05/2020 8:45 AM 11/05/2020 6:57 PM Advance Directive Response Recorded Date/ Time Living Will Yes December 06, 2014 8 :23pm Power of Director [employer] Yes December 06, 2014 8:23pm Advance Directive Response Recorded Date/ Time Living Will Yes December 06, 2014 7 :23pm Power of Director [employer] Yes December 06, 2014 7:23pm Advance Directive Response Recorded Date/ Time Living Will Yes December 06, 2014 8 :23pm Do you have a Healthcare Power of Director [employer]? Yes December 06, 2014 8:23pm Advance Directive Response Recorded Date/ Time Living Will Yes December 06, 2014 8 :23pm Do you have a Healthcare Power of Director [employer]? Yes December 06, 2014 8:23pm Living Will Yes October 08, 2024 11:46am Do you have a Healthcare Power of Director [employer]? Yes October 08, 2024 11:46am Name of Medical Power of Director [employer] DEQUAN MIMS October 08, 2024 11:46am Advance Directive Response Recorded Date/ Time Living Will Yes December 06, 2014 8 :23pm Do you have a Healthcare Power of Director [employer]? Yes December 06, 2014 8:23pm Living Will Yes October 08, 2024 11:46am Do you have a Healthcare Power of Director [employer]? Yes October 08, 2024 11:46am Name of Medical Power of Director [employer] DEQUAN MIMS October 08, 2024 11:46am Do you have a Healthcare Power of Director [employer]? Yes November 25, 2024 9:33am Chief Complaint Chief Complaint Description Start Date [...] has not been provided by the sender. Chief Complaint and Reason for Visit Chief Complaint GC Chief Complaint GC PROLIA Chief Complaint 1 Y FU Reason for Visit Asthma Chief Complaint PROLIA Chief Complaint 6 M FU 6-8 wk fu Reason for Visit Asthma Asthma Chief Complaint MUSCLE SPASMS, CRAMP ING MUSCLE SPASMS, CRAMPING PROLIA Chief Complaint MUSCLE SPASMS, CRAMP ING MUSCLE SPASMS, CRAMPING PROLIA 6 M FU ASTHMA Asthma Reason for Visit Asthma Chief Complaint MUSCLE SPASMS, CRAMP ING MUSCLE SPASMS, CRAMPING PROLIA 6 M FU ASTHMA Asthma TACHYCARDIA Reason for Visit Asthma Chief Complaint 6 M FU ASTHMA Asthma TACHYCARDIA TACHY, SOB ABN HOLTER (MALYS) Reason for Visit Asthma SOB (shortness of breath) Chief Complaint 6 M FU ASTHMA Asthma TACHYCARDIA TACHY, SOB ABN HOLTER (MALYS) PROLIA Reason for Visit Asthma SOB (shortness of breath) Chief Complaint ASTHMA Asthma TACHYCARDIA TACHY, SOB ABN HOLTER (MALYS) PROLIA DYSPNEA Reason for Visit SOB (shortness of br eath) Chief Complaint ASTHMA Asthma TACHYCARDIA TACHY, SOB ABN HOLTER (MALYS) PROLIA DYSPNEA Amb Documentation DYSPNEA / SOB DYSPNEA / SOB Amb Documentation Reason for Visit SOB (shortness of br eath) Chief Complaint Admit Date Gastroesophageal reflux disease (GERD) F [facility] 2024 1:07pm 6 M FU September 05, 2024 8:01am DYSPAGIA September 24, 2024 12: 56pm DYSPHAGIA September 27, 2024 7:4 0am Reason for Visit Admit Date Cough August 27, 2024 1:07pm Dysphagia August 27, 2024 1:07pm Elevated alkaline phosphatase level [facility] 2024 1:07pm Elevated AST (SGOT) August 27, 2024 1:07pm Weight loss August 27, 2024 1:07pm Gastroesophageal reflux disease August 27, 2024 1:07pm Asthma September 05, 2024 8:01am Chief Complaint Admit Date Gastroesophageal reflux disease (GERD) F [facility] 2024 1:07pm 6 M FU September 05, 2024 8:01am DYSPAGIA September 24, 2024 12: 56pm DYSPHAGIA September 27, 2024 7:4 0am Abnormal levels of other serum enzymes [facility] 2024 9:21am Reason for Visit Admit Date Cough August 27, 2024 1:07pm Dysphagia August 27, 2024 1:07pm Elevated alkaline phosphatase level [facility] 2024 1:07pm Elevated AST (SGOT) August 27, 2024 1:07pm Weight loss August 27, 2024 1:07pm Gastroesophageal reflux disease August 27, 2024 1:07pm Asthma September 05, 2024 8:01am Cough October 10, 2024 5:5 0am Dysphagia October 10, 2024 5:5 0am Chief Complaint Admit Date Gastroesophageal reflux disease (GERD) F ebruary 2024 1:07pm 6 M FU September 05, 2024 8:01am DYSPAGIA September 24, 2024 12: 56pm DYSPHAGIA September 27, 2024 7:4 0am Abnormal levels of other serum enzymes [facility] 2024 9:21am ABNORMAL ABD US October 15, 2024 7:55 am Abdominal pain October 17, 2024 12:4 9pm INT LAB ORDERS October 17, 2024 1:50 pm PROLIA October 18, 2024 10:1 9am Reason for Visit Admit Date Cough August 27, 2024 1:07pm Dysphagia August 27, 2024 1:07pm Elevated alkaline phosphatase level [facility] 2024 1:07pm Elevated AST (SGOT) August 27, 2024 1:07pm Weight loss August 27, 2024 1:07pm Gastroesophageal reflux disease August 27, 2024 1:07pm Asthma September 05, 2024 8:01am Cough October 10, 2024 5:5 0am Dysphagia October 10, 2024 5:5 0am Abdominal pain October 17, 2024 12:4 9pm Abnormal US (ultrasound) of abdomen [facility] 2024 12:49pm Bloating October 17, 2024 12:4 9pm Elevated alkaline phosphatase level [facility] 2024 12:49pm Personal history of lung cancer October 12:49pm Weight loss October 17, 2024 12:4 9pm Chief Complaint Admit Date Gastroesophageal reflux disease (GERD) F [facility] 2024 1:07pm 6 M FU September 05, 2024 8:01am DYSPAGIA September 24, 2024 12: 56pm DYSPHAGIA September 27, 2024 7:4 0am Abnormal levels of other serum enzymes [facility] 2024 9:21am ABNORMAL ABD US October 15, 2024 7:55 am Abdominal pain October 17, 2024 12:4 9pm INT LAB ORDERS October 17, 2024 1:50 pm PROLIA October 18, 2024 10:1 9am ABDOMINAL FULNESS,PAIN,WEIGHT LOSS, ABNL US November 11, 2024 7:46am Test Result November 12, 2024 8:5 4am GALLBLADDER November 18, 2024 8:55am Robotic Cholecystectomy December 02, 2024 8 :00am Robotic Cholecystectomy December 02, 2024 9 :20am Reason for Visit Admit Date Cough August 27, 2024 1:07pm Dysphagia August 27, 2024 1:07pm Elevated alkaline phosphatase level [facility] 2024 1:07pm Elevated AST (SGOT) August 27, 2024 1:07pm Weight loss August 27, 2024 1:07pm Gastroesophageal reflux disease August 27, 2024 1:07pm Asthma September 05, 2024 8:01am Cough October 10, 2024 5:5 0am Dysphagia October 10, 2024 5:5 0am Abdominal pain October 17, 2024 12:4 9pm Abnormal US (ultrasound) of abdomen Apri l 2024 12:49pm Bloating October 17, 2024 12:4 9pm Elevated alkaline phosphatase level [facility] 2024 12:49pm Personal history of lung cancer October 12:49pm Weight loss October 17, 2024 12:4 9pm Abnormal US (ultrasound) of abdomen Apri l 2024 8:54am Elevated CEA November 12, 2024 8:5 4am Epigastric pain November 12, 2024 8:5 4am Nausea November 12, 2024 8:5 4am Weight loss November 12, 2024 8:5 4am Gallbladder polyp November 18, 2024 8:55am Abdominal pain December 02, 2024 8:00a m Abnormal US (ultrasound) of abdomen December 02, 2024 8:00am Chief Complaint Admit Date Gastroesophageal reflux disease (GERD) F ebruary 2024 1:07pm 6 M FU September 05, 2024 8:01am DYSPAGIA September 24, 2024 12: 56pm DYSPHAGIA September 27, 2024 7:4 0am Abnormal levels of other serum enzymes M arch 2024 9:21am ABNORMAL ABD US October 15, 2024 7:55 am Abdominal pain October 17, 2024 12:4 9pm INT LAB ORDERS October 17, 2024 1:50 pm PROLIA October 18, 2024 10:1 9am ABDOMINAL FULNESS,PAIN,WEIGHT LOSS, ABNL US November 11, 2024 7:46am Test Result November 12, 2024 8:5 4am GALLBLADDER November 18, 2024 8:55am Robotic Cholecystectomy December 02, 2024 8 :00am Robotic Cholecystectomy December 02, 2024 9 :20am 1 month f/u December 12, 2024 10:52 am Chief Complaint Admit Date Gastroesophageal reflux disease (GERD) F ebruary 2024 1:07pm 6 M FU September 05, 2024 8:01am DYSPAGIA September 24, 2024 12: 56pm DYSPHAGIA September 27, 2024 7:4 0am Abnormal levels of other serum enzymes M arch 2024 9:21am ABNORMAL ABD US October 15, 2024 7:55 am Abdominal pain October 17, 2024 12:4 9pm INT LAB ORDERS October 17, 2024 1:50 pm PROLIA October 18, 2024 10:1 9am ABDOMINAL FULNESS,PAIN,WEIGHT LOSS, ABNL US November 11, 2024 7:46am Test Result November 12, 2024 8:5 4am GALLBLADDER November 18, 2024 8:55am Robotic Cholecystectomy December 02, 2024 8 :00am Robotic Cholecystectomy December 02, 2024 9 :20am 1 month f/u December 12, 2024 10:52 am LAP LUISA DOS 12/02December 16, 2024 8:29a m Reason for Visit Admit Date Cough August 27, 2024 1:07pm Dysphagia August 27, 2024 1:07pm Elevated alkaline phosphatase level Febr uary 2024 1:07pm Elevated AST (SGOT) August 27, 2024 1:07pm Weight loss August 27, 2024 1:07pm Gastroesophageal reflux disease August 27, 2024 1:07pm Asthma September 05, 2024 8:01am Cough October 10, 2024 5:5 0am Dysphagia October 10, 2024 5:5 0am Abdominal pain October 17, 2024 12:4 9pm Abnormal US (ultrasound) of abdomen Apri l 2024 12:49pm Bloating October 17, 2024 12:4 9pm Elevated alkaline phosphatase level Apri [facility] 2024 12:49pm Personal history of lung cancer October 12:49pm Weight loss October 17, 2024 12:4 9pm Abnormal US (ultrasound) of abdomen Apri l 2024 8:54am Elevated CEA November 12, 2024 8:5 4am Epigastric pain November 12, 2024 8:5 4am Nausea November 12, 2024 8:5 4am Weight loss November 12, 2024 8:5 4am Gallbladder polyp November 18, 2024 8:55am Abdominal pain December 02, 2024 8:00a m Abnormal US (ultrasound) of abdomen December 02, 2024 8:00am Nausea and vomiting December 12, 2024 10:52 am Seroma after procedure December 12, 2024 10 :52am Reason for Referral Specialty Diagnoses / Procedures Referred By Contromán t Referred To Contact [facility] Vini Maurer MD [address] [facility] [address] [place] [address] [facility] [address] [place] [address] Referral ID Status Reason Start Date Expiration Date Visits Re quested Visits Authorized [id number] Closed 04/11/2024 07/10/2024 1 1 Additional Source Comments INFORMATION SOURCE (unrecogn ized section and content) DATE CREATED AUTHOR 03/28/2019 [facility] DATE CREATED AUTHOR AUTHOR'S ORGANIZ ATION 01/31/2020 [facility] [place] [facility] DATE CREATED AUTHOR AUTHOR'S ORGANIZ ATION 08/28/2020 [facility] DATE CREATED AUTHOR AUTHOR'S ORGANIZ ATION 12/11/2020 [facility] DATE CREATED AUTHOR AUTHOR'S ORGANIZ ATION 06/28/2022 [facility] DATE CREATED AUTHOR AUTHOR'S ORGANIZ ATION 03/29/2024 [facility] DATE CREATED AUTHOR AUTHOR'S ORGANIZ ATION 12/17/2024 [facility] Reason for Visit (unrecogniz ed section and content) Reason For Visit Description Postop - subsequent visit Preliminary reason f or visit data, not yet signed by the author as of right hand post Carpometacar pal interpositional arthroplasty with ligament reconstruction right thumb flexor carpi radialis tendon transfer and partial trapezoid resection on 10/29/2018 Reason Comments Care Coordination Botox Specialty Diagnoses / Procedures Referred By Contac t Referred To Contact URO GYNECOLOGY Diagnoses OAB (overactive bladder) Procedures BOTULINUM TOXIN A PER 1 UNIT CYSTOURETHROSCOPY INJ CHEMODENERVATION BLADDER Vini Maurer MD [address] [facility] [address] [place] [address] 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 [place] [address] [place] [address] Referral ID Status Reason Start Date Expiration Date V isits Requested Visits Authorized [id number] Authorized 02/21/2024 02/20/2025 99 99 Ordered Prescriptions (unrec ognized section and content) Prescription Sig Dispensed Refills Start Date End Da te metoprolol succinate (TOPROL XL) 50 MG extended release tablet Take 1.5 tablets by mouth daily 90 tablet 1 11/09/2020 polyethylene glycol (GLYCOLAX) 17 GM/SCOOP powderIndications:Nodule of apex of right lung Take 17 g by mouth daily 510 g 0 11/09/2020 12/09/2020 oxyCODONE-acetaminophen (PERCOCET) 5-325 MG per tabletIndications:Nodule of apex of right lung Take 1 tablet by mouth every 6 hours as needed for Pain for up to 7 days. Intended supply: 7 days. Take lowest dose possible to manage pain 28 tablet 0 11/09/2020 11/16/2020 Goals (unrecognized section and content) Goals may be documented in a n alternate sectionGoals may be documented in an alternate sectionGoals may be documented in an alternate sectionGoals may be documented in an alternate sectionGoals may be documented in an alternate sectionGoals may be documented in an alternate sectionGoals may be documented in an alternate sectionGoals may be documented in an alternate sectionGoals may be documented in an alternate sectionGoals may be documented in an alternate sectionGoals may be documented in an alternate sectionGoals may be documented in an alternate sectionGoals may be documented in an alternate sectionGoals may be documented in an alternate sectionGoals may be documented in an alternate sectionGoals may be documented in an alternate sectionGoals may be documented in an alternate sectionGoals may be documented in an alternate section Care Teams (unrecognized sec tion and content) Team Status: Active Member Role Status Dates Dr. Danielle Paige DO Family Provider Active Dr. Danielle Paige DO Primary Care Provider Active Team Status: Inactive Member Role Status Dates Dr. Danielle Paige DO Primary Care Provider, Referring P rovider Active Abril Connors COSMETICS DEMONSTRATOR, COSMETICS DEMONSTRATOR-C Attending Provider Active Team Status: Inactive Member Role Status Dates Dr. Danielle Paige DO Primary Care Provider, Attending P rovider Active Team Status: Inactive Member Role Status Dates Dr. Danielle Paige DO Primary Care Provide r, Attending Provider, Referring Provider Active Team Status: Inactive Member Role Status Dates Dr. Danielle Paige DO Primary Care Provider, Referring P rovider Active Dr. Lon Berrios DO Attending Provider Active Team Status: Active Member Role Status Dates Dr. Danielle Paige DO Primary Care Provide r, Referring Provider, Other Provider Active Dr. Jelani Mendoza MD Attending Provider Active Team Status: Active Member Role Status Dates Dr. Danielle Paige DO Primary Care Provider Active Dr. Lon Berrios , DO Attending Provider, Referring Provider, Other Provider Active Team Status: Inactive Member Role Status Dates Dr. Danielle Paige DO Primary Care Provider Active Dr. Lon Berrios , DO Attending Provider, Referring Pro vider Active Team Status: Active Member Role Status Dates Dr. Danielle Paige DO Primary Care Provider, Referring P rovider Active Dr. Sheryl Rankin MD Attending Provider Active Team Status: Inactive Member Role Status Dates Dr. Danielle Paige DO Primary Care Provider, Referring P rovider Active Dr. Melvin Mcclelland MD Attending Provider Active Team Status: Inactive Member Role Status Dates Dr. Danielle Paige DO Primary Care Provider Active Dr. Melvin Mcclelland MD Attending Provider, Referring Pro vider Active Team Status: Active Member Role Status Dates Dr. Danielle Paige DO Primary Care Provide r, Attending Provider, Referring Provider Active Team Status: Active Member Role Status Dates Dr. Danielle Paige DO Primary Care Provider, Attending P rovider Active Team Status: Active Member Role Status Dates Dr. Danielle Paige DO Primary Care Provider Active Dr. Melvin Mcclelland MD Attending Provider Active Team Status: Active Member Role Status Dates Dr. Danielle Paige DO Primary Care Provider Active Tory Hatfield COSMETICS DEMONSTRATOR, COSMETICS DEMONSTRATOR-C Attending Provider Active Team Status: Active Member Role Status Dates Dr. Danielle Paige DO Primary Care Provider Active Dr. 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 Danielle Paige DO Primary Care Provider Active Team Status: Inactive Member Role Status Dates Dr. Danielle Paige DO Primary Care Provider Active Start: August 07, 2024 End: August 07, 2024 Dr. Danielle Paige DO Attending Provider Active St art: August 07, 2024 End: August 07, 2024 Team Status: Inactive Member Role Status Dates Dr. Danielle Paige DO Primary Care Provider Active Start: August 27, 2024 End: August 27, 2024 Dr. Danielle Paige DO Referring Provider Active St art: August 27, 2024 End: August 27, 2024 Savanna Gagnon NP-C Attending Provider Active Start: August 27, 2024 End: August 27, 2024 Team Status: Inactive Member Role Status Dates Dr. Danielle Paige DO Primary Care Provider Active Start: September 05, 2024 End: September 05, 2024 Dr. Danielle Paige DO Referring Provider Active St art: September 05, 2024 End: September 05, 2024 Abril Connors NP COSMETICS DEMONSTRATOR-C Attending Provider Active Start: September 05, 2024 End: September 05, 2024 Team Status: Inactive Member Role Status Dates Dr. Danielle Paige DO Primary Care Provider Active Start: September 23, 2024 End: September 23, 2024 Dr. Aron Frank DO Attending Provider Active Start: September 23, 2024 End: September 23, 2024 Dr. Aron Frank DO Referring Provider Active Start: September 23, 2024 End: September 23, 2024 Team Status: Active Member Role Status Dates Dr. Danielle Paige DO Primary Care Provider Active Start: September 24, 2024 Savannacayetano Gagnon , COSMETICS DEMONSTRATOR-C Attending Provider Active Start: September 24, 2024 Savannamat Gagnon , COSMETICS DEMONSTRATOR-C Referring Provider Active Start: September 24, 2024 Team Status: Active Member Role Status Dates Dr. Danielle Paige DO Primary Care Provider Active Start: September 27, 2024 Savanna Kalin , COSMETICS DEMONSTRATOR-C Attending Provider Active Start: September 27, 2024 Savanna Kalin , COSMETICS DEMONSTRATOR-C Referring Provider Active Start: September 27, 2024 Team Status: Inactive Member Role Status Dates Dr. Danielle Paige DO Primary Care Provider Active Start: September 24, 2024 End: September 24, 2024 Savannamat Gagnon , COSMETICS DEMONSTRATOR-C Attending Provider Active Start: September 24, 2024 End: September 24, 2024 Savanna Kalin , COSMETICS DEMONSTRATOR-C Referring Provider Active Start: September 24, 2024 End: September 24, 2024 Team Status: Inactive Member Role Status Dates Dr. Danielle Paige DO Primary Care Provider Active Start: September 27, 2024 End: September 27, 2024 Savannamat Gagnon , COSMETICS DEMONSTRATOR-C Attending Provider Active Start: September 27, 2024 End: September 27, 2024 Savanna Kalin , COSMETICS DEMONSTRATOR-C Referring Provider Active Start: September 27, 2024 End: September 27, 2024 Team Status: Active Member Role Status Dates Dr. Danielle Paige DO Primary Care Provider Active Start: October 08, 2024 Savannamat Gagnon , COSMETICS DEMONSTRATOR-C Attending Provider Active Start: October 08, 2024 Savannamat Gagnon , COSMETICS DEMONSTRATOR-C Referring Provider Active Start: October 08, 2024 Team Status: Inactive Member Role Status Dates Dr. Danielle Paige DO Primary Care Provider Active Start: October 10, 2024 End: October 10, 2024 Dr. Danielle Paige DO Referring Provider Active St art: October 10, 2024 End: October 10, 2024 Dr. Aron Frank DO Attending Provider Active Start: October 10, 2024 End: October 10, 2024 Team Status: Active Member Role Status Dates Dr. Danielle Paige DO Primary Care Provider Active Start: October 10, 2024 Dr. Danielle Paige DO Referring Provider Active St art: October 10, 2024 Dr. Aron Frank DO Attending Provider Active Start: October 10, 2024 Dr. Aron Frank DO Other Provider Active St art: October 10, 2024 Team Status: Inactive Member Role Status Dates Dr. Danielle Paige DO Primary Care Provider Active Start: October 08, 2024 End: October 08, 2024 Savanna Kalin , COSMETICS DEMONSTRATOR-C Attending Provider Active Start: October 08, 2024 End: October 08, 2024 Savanna Kalin , COSMETICS DEMONSTRATOR-C Referring Provider Active Start: October 08, 2024 End: October 08, 2024 Team Status: Active Member Role Status Dates Dr. Danielle Paige DO Primary Care Provider Active Start: October 15, 2024 Savanna Kalin , COSMETICS DEMONSTRATOR-C Attending Provider Active Start: October 15, 2024 Savanna Kalin , COSMETICS DEMONSTRATOR-C Referring Provider Active Start: October 15, 2024 Team Status: Inactive Member Role Status Dates Dr. Danielle Paige DO Primary Care Provider Active Start: October 17, 2024 End: October 17, 2024 Dr. Danielle Paige DO Referring Provider Active St art: October 17, 2024 End: October 17, 2024 Savanna Kalin , COSMETICS DEMONSTRATOR-C Attending Provider Active Start: October 17, 2024 End: October 17, 2024 Team Status: Active Member Role Status Dates Dr. Danielle Paige DO Primary Care Provider Active Start: October 17, 2024 Savanna Kalin , COSMETICS DEMONSTRATOR-C Attending Provider Active Start: October 17, 2024 Savanna Kalin , COSMETICS DEMONSTRATOR-C Referring Provider Active Start: October 17, 2024 Team Status: Inactive Member Role Status Dates Dr. Danielle Paige DO Primary Care Provider Active Start: October 18, 2024 End: October 18, 2024 Dr. Danielle Paige DO Attending Provider Active St art: October 18, 2024 End: October 18, 2024 Dr. Danielle Paige DO Referring Provider Active St art: October 18, 2024 End: October 18, 2024 Team Status: Inactive Member Role Status Dates Dr. Danielle Paige DO Primary Care Provider Active Start: October 15, 2024 End: October 15, 2024 Savannacayetano Gagnon , COSMETICS DEMONSTRATOR-C Attending Provider Active Start: October 15, 2024 End: October 15, 2024 Savanna Kalin , COSMETICS DEMONSTRATOR-C Referring Provider Active Start: October 15, 2024 End: October 15, 2024 Team Status: Inactive Member Role Status Dates Dr. Danielle Paige DO Primary Care Provider Active Start: October 17, 2024 End: October 17, 2024 Savanna Kalin , COSMETICS DEMONSTRATOR-C Attending Provider Active Start: October 17, 2024 End: October 17, 2024 Savanna Kalin , COSMETICS DEMONSTRATOR-C Referring Provider Active Start: October 17, 2024 End: October 17, 2024 Team Status: Inactive Member Role Status Dates Dr. Danielle Paige DO Primary Care Provider Active Start: November 11, 2024 End: November 11, 2024 Savannacayetano Balony , COSMETICS DEMONSTRATOR-C Attending Provider Active Start: November 11, 2024 End: November 11, 2024 Savanna Kalin , COSMETICS DEMONSTRATOR-C Referring Provider Active Start: November 11, 2024 End: November 11, 2024 Team Status: Inactive Member Role Status Dates Dr. Danielle Paige DO Primary Care Provider Active Start: November 12, 2024 End: November 12, 2024 Dr. Danielle Paige DO Referring Provider Active St art: November 12, 2024 End: November 12, 2024 Savanna Gagnon , COSMETICS DEMONSTRATOR-C Attending Provider Active Start: November 12, 2024 End: November 12, 2024 Team Status: Inactive Member Role Status Dates Dr. Danielle Paige DO Primary Care Provider Active Start: November 18, 2024 End: November 18, 2024 Dr. Danielle Paige DO Referring Provider Active St art: November 18, 2024 End: November 18, 2024 Dr. Carlos Cano MD Attending Provider Active Start: November 18, 2024 End: November 18, 2024 Team Status: Inactive Member Role Status Dates Dr. Danielle Paige DO Primary Care Provider Active Start: December 02, 2024 End: December 02, 2024 Dr. Carlos Cano MD Attending Provider Active Start: December 02, 2024 End: December 02, 2024 Dr. Carlos Cano MD Referring Provider Active Start: December 02, 2024 End: December 02, 2024 Team Status: Active Member Role Status Dates Dr. Danielle Paige DO Primary Care Provider Active Start: December 02, 2024 Dr. Carlos Cano MD Attending Provider Active Start: December 02, 2024 Dr. Carlos Cano MD Referring Provider Active Start: December 02, 2024 Dr. Carlos Cano MD Other Provider Active St art: December 02, 2024 Team Status: Inactive Member Role Status Dates Dr. Danielle Paige DO Primary Care Provider Active Start: December 12, 2024 End: December 12, 2024 Dr. Danielle Paige DO Referring Provider Active St art: December 12, 2024 End: December 12, 2024 ZACKARY Mantilla Attending Provider Active Start: December 12, 2024 End: December 12, 2024 Team Status: Inactive Member Role Status Dates Dr. Danielle Paige DO Primary Care Provider Active Start: December 16, 2024 End: December 16, 2024 Dr. Danielle Paige DO Referring Provider Active St art: December 16, 2024 End: December 16, 2024 Dr. Carlos Cano MD Attending Provider Active Start: December 16, 2024 End: December 16, 2024 Source Comments (unrecognize d section and content) In the event this informatio n is protected by the Federal Confidentiality of Alcohol and Drug Abuse Patient Records regulations: The Federal rules restrict any use of the information to criminally investigate or prosecute any alcohol or drug abuse patient.[facility] the event this information is protected by the Federal Confidentiality of Alcohol and Drug Abuse Patient Records regulations: The Federal rules restrict any use of the information to criminally investigate or prosecute any alcohol or drug abuse patient.[facility] the event this information is protected by the Federal Confidentiality of Alcohol and Drug Abuse Patient Records regulations: The Federal rules restrict any use of the information to criminally investigate or prosecute any alcohol or drug abuse patient.[facility] FOR RECORDS PERTAINING TO PATIENTS WHO ARE [...] BE BASED ON THE PRIMARY CLINICAL RECORDS. [facility] [employer] [facility]. provides no warranty or guarantee of the accuracy or completeness of information in this document.
[2024-12-18] VITALS (7 sets, daily range): BP systolic 96–131; BP diastolic 65–76; PULSE 76–101; RESP 15–18; TEMP 36.7–36.9; O2SAT 93–98; BMI 21.6
[2024-12-18] MEDS: Lactulose 20 GM/30 ML UDC 10 GM PO (01:33)
[2024-12-18] MEDS: Pantoprazole Sodium 40 MG in 0.9% Normal Saline (100mL MB+) 100 ML 330 MG IV ×3 (01:34→19:42)
[2024-12-18] MEDS: 0.9% Normal Saline (1000mL) 1,000 ML 100 ML IV (01:35)
[2024-12-18 05:41] LABS: Absolute Lymphocyte Count 1.56 X10^3/uL (0.83-4.51); Absolute Neutrophil Count 8.5 X10^3/uL (2.0-7.7); Basophil# 0.04 X10^3/uL; Basophil% 0.4 % (0-1); Eosinophil# 0.02 X10^3/uL; Eosinophils% 0.2 % (0-5); Hematocrit 37.3 % (37-47); Hemoglobin 12.8 g/dL (12.0-15.0); Lymphocyte # 1.56 X10^3/ul (0.83-4.51); Lymphocyte % 13.9 % (19-41); Mean Corp Hgb Conc 34.3 g/dL (32-36); Mean Corpuscular Hgb 31.4 pg (27.0-32.0); Mean Corpuscular Volume 91.6 fL (81-99); Mean Platelet Vol. 8.7 fl (6.2-12.0); Monocyte# 1.05 X10^3/uL; Monocyte% 9.3 % (0-10); NRBC Flagged by Analyzer 0 % (0-5); Neutrophil # 8.51 X10^3/uL (2.7-7.7); Neutrophil % 75.7 % (47-70); Platelet Count 347 K/mm3 (150-450); RBC Distribution Width CV 12.9 % (11.6-14.6); RBC Distribution Width SD 43.1 fl (35.1-43.9); Red Blood Count 4.07 M/mm3 (4.2-5.4); White Blood Count 11.2 K/mm3 (4.4-11.0)
[2024-12-18] MEDS: Liothyronine 5 MCG Tablet PO (06:16)
[2024-12-18 06:21] LABS: ALB/GLOB Ratio 1.4 RATIO (0.9-2.4); AST(SGOT) 31 U/L (<=31); Alanine Aminotransfer ALT/SGPT 31 U/L (<=34); Albumin, Serum 3.6 g/dL (3.4-4.8); Alkaline Phosphatase 171 U/L (35-104); Anion Gap 11 (5-15); BUN 17 mg/dL (4-19); BUN/Creat Ratio 24.4 RATIO (10-20); Calcium,Total 8.8 mg/dL (7.6-11.0); Carbon Dioxide 23.3 mmol/L (21.0-32.0); Chloride 103 mmol/L (98-108); Creatinine, Serum 0.71 mg/dL (0.70-1.20); EST Glomerular Filtration Rate 84 (>60); Estimated Creatinine Clearance 48.79 ml/min (50-250); Globulin 2.6 g/dL (2.2-4.2); Glucose 112 mg/dL (70-99); Potassium 3.8 mmol/L (3.3-5.1); Protein, Total 6.2 g/dL (5.9-8.4); Sodium Level 137 mmol/L (133-145); Total Bilirubin 0.53 mg/dL (0.00-1.30)
[2024-12-18] MEDS: Ondansetron 4 MG/2 ML Vial IV (09:31)
[2024-12-18] MEDS: 0.9% Saline Lock 10 ML Syringe IV ×2 (09:31→19:42)
[2024-12-18] MEDS: Diclofenac 75 MG Tablet PO ×2 (10:38→19:47)
[2024-12-18] MEDS: dilTIAZem 30 MG Tablet PO (10:38)
--- NOTE | 2024-12-18 14:45 | CASEMGMT ---
RN CM Face to Face with patient for initial transition planning/care coordination assessment. RN CM introduced self and role at [facility]. Patient lying in bed, alert and oriented, daughter at bedside. Patient willing to participate in assessment and is able to answer all questions appropriately. Care providers, pharmacy, and demographics verified. Strata: 2 PCP: [facility]: Jerome, Surgeon; Krystin, zipper measurer; Mazin Beriros-Manager Life; Preferred Pharmacy: [facility] Retail Insurance: MCR, Prescription Benefit: yes Living Will/HPOA: yes, daughter Emilysa Woo LNOK: daughter, son Living Arrangements: Patient lives alone in a single story home with 2 steps and railing to enter. Patient states she is independent at home. Transportation: self, daughter DME/HHC: Patient has shower chair, raised toilet, cane, walker, grab bars at home. No previous HHC or SNF. Patient wishes to discharge home, denies need for home health at this time. Patient states she has no further needs or concerns at this time. CM to follow for discharge planning needs that may arise. Disposition Plan: Patient to discharge home with family support and follow-up plans in place. Cyndee ISAAC, RN, CM
--- NOTE | 2024-12-18 15:45 | PN_ITS ---
Subjective Subjective Patient seen and examined. She was admitted with complaint of abdominal pain. She had laparoscopic cholecystectomy on 12/02/2024. She said she was subsequently discharged home but has not been able to have bowel movement since then and also started having nausea and vomiting with burning with urination and lower abdominal pain so she came into the ED.she still complains of lower abdominal pain. She denies any nausea and vomiting since she came into the hospital. She had not had any bowel movements above and 2 small ones. She was therefore given prune juice this morning subsequently started having several bowel movements. Review of symptoms otherwise negative. Objective Data Objective Data Vital Signs: Vital Signs Temp Pulse Resp BP Pulse Ox O2 Del Method 98.1 F 76 16 119/72 98 Room Air 12/18/24 15:18 12/18/24 15:18 12/18/24 15:18 12/18/24 15:18 12/18/24 15:18 12/18/24 15:18 Oxygen Delivery Method Room Air Weight: 130 lb 1.164 oz Body Mass Index (BMI) 21.6 Intake & Output: Intake and Output for Last 24 Hours 12/16/24 12/17/24 12/18/24 23:59 23:59 23:59 Intake Total 1000 / 1050 1250.00 / 1250.00 Balance 1000 / 1050 1250.00 / 1250.00 Lab / Micro Data 12/18/24 05:13 12/18/24 05:13 Labs: Laboratory Results - last 24 hr 12/17/24 20:24: WBC 14.9 H, RBC 4.17 L, Hgb 13.1, Hct 39.0, MCV 93.5, MCH 31.4, MCHC 33.6, RDW Std Deviation 44.2 H, RDW Coeff of Jessee 12.9, Plt Count 382, MPV 9.1, Immature Gran % (Auto) 0.300, Neut % (Auto) 81.9 H, Lymph % (Auto) 11.0 L, Cuming % (Auto) 5.6, Eos % (Auto) 0.7, Baso % (Auto) 0.5, Absolute Neuts (auto) 12.2 H, Absolute Lymphs (auto) 1.64, Nucleated RBC % 0, Sodium 135, Potassium 3.7, Chloride 98, Carbon Dioxide 22.9, Anion Gap 14, BUN 18, Creatinine 0.79, E stim Creat Clear Calc 44.85 L, Est GFR (MDRD) Non-Af 75, BUN/Creatinine Ratio 23.2 H, Glucose 110 H, Calcium 9.7, Total Bilirubin 0.70, AST 38 H, ALT 39 H, A lkaline Phosphatase 199 H, Total Protein 7.0, Albumin 3.9, Globulin 3.2, Albumin/Globulin Ratio 1.2, Lipase 21 12/17/24 20:45: Lactic Acid < 1.0 12/17/24 21:30: Urine Color Yellow, Urine Clarity Cloudy, Urine pH 6.0, Ur Specific [place] 1.015, Urine Protein 30 H, Urine Glucose (UA) Normal, Urine Ketones 50 H, Urine Occult Blood 150 H, Urine Nitrite Positive H, Urine Bilirubin Negative, Urine Urobilinogen 1 H, Ur Leukocyte Esterase 500 H, Urine RBC 0-5 SEEN, Urine WBC >100 SEEN, Ur Squamous Epith Cells 0-5 SEEN, Urine Bacteria 1+, Urine Mucus 0 SEEN 12/18/24 05:13: WBC 11.2 H, RBC 4.07 L, Hgb 12.8, Hct 37.3, MCV 91.6, MCH 31.4, MCHC 34.3, RDW Std Deviation 43.1, RDW Coeff of Jessee 12.9, Plt Count 347, MPV 8.7, Immature Gran % (Auto) 0.500, Neut % (Auto) 75.7 H, Lymph % (Auto) 13.9 L, Cuming % (Auto) 9.3, Eos % (Auto) 0.2, Baso % (Auto) 0.4, Absolute Neuts (auto) 8.5 H, Absolute Lymphs (auto) 1.56, Nucleated RBC % 0, Sodium 137, Potassium 3.8, Chloride 103, Carbon Dioxide 23.3, Anion Gap 11, BUN 17, Creatinine 0.71, E stim Creat Clear Calc 48.79 L, Est GFR (MDRD) Non-Af 84, BUN/Creatinine Ratio 24.4 H, Glucose 112 H, Calcium 8.8, Total Bilirubin 0.53, AST 31, ALT 31, A lkaline Phosphatase 171 H, Total Protein 6.2, Albumin 3.6, Globulin 2.6, Albumin/Globulin Ratio 1.4 Radiography Diagnostic Testing: Radiology Impression Abdomen/Pelvis CT 12/17/24 20:35 IMPRESSION: Dense colonic stool which may suggest constipation. Colonic diverticulosis. Chronic and ancillary findings as above. Reading Location: [place] [id number] Physical Exam Const alert and oriented x3 Constitutional Narrative: looks a bit uncomfortable due to lower abdominal pain General Appearance: cooperative HEENT normocephalic, head/scalp atraumatic, moist oral mucous membranes and oropharynx normal Eyes PERRL and EOMs intact bilaterally Neck no lymphadenopathy and supple Lymph Lymphatic: no lymphedema noted Resp normal respiratory effort, normal air movement and clear to auscultation bilaterally Cardio regular rate, regular rhythm, S1 normal heart sound, S2 normal heart sound and no murmurs GI normal to inspection, nondistended, normoactive bowel sounds and soft to palpation GI Narrative: mild suprapubic tenderness, no guarding or rebound tenderness. Extremity normal capillary refill, no clubbing, cyanosis or edema and no calf tenderness General Extremity: no tenderness to palpation of joints or extremities Skin General Skin Exam: no breakdown Neuro CN's II-XII intact bilaterally, no focal motor deficits and no sensory deficits noted Motor Exam: general weakness Psych thought process normal and cooperative Appearance: appropriate Assessment & Plan Assessment/Plan (1) UTI (urinary tract infection): (2) Nausea and vomiting: PLAN: Plan #Acute UTI * admitted with a complaint of nausea and vomiting. She had also just been diagnosed with UTI on outpatient basis. * on IV rocephin * PT/OT on board * WBC is down from 14.9-11.2. * #Constipation * this is acute. Recently had cholecystectomy on 12/02/2024 and has struggled with constipation since then * received prune juice today and later in the day started having loose bowel movements and abdominal pain * get abdominal xray to evaluate she did have CT of the abdomen and pelvis on admission showed dense colonic stool and colonic diverticulosis. * #Hypothyroidism: on liothyronine #Hypertension: On Cardizem #GERD: on PPI. #Restless leg syndrome: not on any meds now. Will monitor DVT prophylaxis: lovenox Charges/Coding Visit Charges Inpatient E&M: 45962 Subs Hosp L2
[2024-12-18] MEDS: Ensure Plus High Protein 120 ML LIQUID PO (18:45)
[2024-12-18] MEDS: Ceftriaxone 1 GM/50 ML BAG IV (20:11)
[2024-12-18] MEDS: Acetaminophen 325 MG Tablet 650 MG PO (20:50)
[2024-12-19 02:45] VITALS: BP 104/59; PULSE 71; RESP 16; TEMP 36.4; O2SAT 99
[2024-12-19] MEDS: Liothyronine 5 MCG Tablet PO (05:23)
[2024-12-19 05:43] VITALS: BMI 21.8
[2024-12-19 05:44] LABS: Absolute Lymphocyte Count 2.07 X10^3/uL (0.83-4.51); Absolute Neutrophil Count 3.7 X10^3/uL (2.0-7.7); Basophil# 0.04 X10^3/uL; Basophil% 0.6 % (0-1); Eosinophils% 5.8 % (0-5); Hematocrit 31.4 % (37-47); Hemoglobin 10.6 g/dL (12.0-15.0); Lymphocyte # 2.07 X10^3/ul (0.83-4.51); Lymphocyte % 29.9 % (19-41); Mean Corp Hgb Conc 33.8 g/dL (32-36); Mean Corpuscular Hgb 31.3 pg (27.0-32.0); Mean Corpuscular Volume 92.6 fL (81-99); Monocyte# 0.68 X10^3/uL; Monocyte% 9.8 % (0-10); NRBC Flagged by Analyzer 0 % (0-5); Neutrophil # 3.71 X10^3/uL (2.7-7.7); Neutrophil % 53.5 % (47-70); Platelet Count 295 K/mm3 (150-450); RBC Distribution Width SD 44.1 fl (35.1-43.9); Red Blood Count 3.39 M/mm3 (4.2-5.4); White Blood Count 6.9 K/mm3 (4.4-11.0)
[2024-12-19 06:17] LABS: Anion Gap 9 (5-15); BUN 22 mg/dL (4-19); BUN/Creat Ratio 27.8 RATIO (10-20); Calcium,Total 7.9 mg/dL (7.6-11.0); Chloride 104 mmol/L (98-108); Creatinine, Serum 0.79 mg/dL (0.70-1.20); EST Glomerular Filtration Rate 75 (>60); Estimated Creatinine Clearance 48.79 ml/min (50-250); Glucose 82 mg/dL (70-99); Potassium 3.7 mmol/L (3.3-5.1); Sodium Level 136 mmol/L (133-145)
[2024-12-19 08:24] VITALS: BP 98/64; PULSE 82; RESP 16; TEMP 36.2; O2SAT 96
[2024-12-19 09:00] VITALS: O2SAT 96
[2024-12-19] MEDS: Diclofenac 75 MG Tablet PO (10:50)
[2024-12-19] MEDS: Pantoprazole Sodium 40 MG in 0.9% Normal Saline (100mL MB+) 100 ML 330 MG IV (11:48)
[2024-12-19] MEDS: dilTIAZem 30 MG Tablet PO (11:51)
[2024-12-19 11:58] VITALS: BP 98/64; PULSE 82; RESP 16; TEMP 36.2; O2SAT 96
--- NOTE | 2024-12-19 12:07 | DS.PCM_ITS ---
Providers Date of Admission: 12/17/24 Date of Discharge: 12/19/24 Primary Care Physician: Dr. Danielle Paige DO Reason For Visit: INTRACTABLE N/V, UTI, CONSTIPATION Diagnosis Discharge Diagnosis (1) UTI (urinary tract infection): Status: Acute Code(s): N39.0 - Urinary tract infection, site not specified (2) Nausea and vomiting: Status: Acute Code(s): R11.2 - Nausea with vomiting, unspecified Plan #Acute UTI * admitted with a complaint of nausea and vomiting. She had also just been diagnosed with UTI on outpatient basis. * on IV rocephin * PT/OT on board * WBC is down from 14.9-11.2. * #Constipation * this is acute. Recently had cholecystectomy on 12/02/2024 and has struggled with constipation since then * received prune juice today and later in the day started having loose bowel movements and abdominal pain * get abdominal xray to evaluate she did have CT of the abdomen and pelvis on admission showed dense colonic stool and colonic diverticulosis. * #Hypothyroidism: on liothyronine #Hypertension: On Cardizem #GERD: on PPI. #Restless leg syndrome: not on any meds now. Will monitor DVT prophylaxis: lovenox Medications at Discharge Home Medications denosumab 60 mg/mL subcutaneous syringe 60 mg subcut .Q6 MONTHS bone density 04/17/20 liothyronine 5 mcg tablet (Cytomel) 5 mcg PO DAILY thyroid 04/21/23 calcium 600 mg (as carbonate)-vitamin D3 20 mcg (800 unit) tablet 1 tab PO BID supplement 09/11/23 mecobalamin (vitamin B12) 1,000 mcg chewable tablet 1,000 mcg PO DAILY vitamin 09/11/23 diltiazem HCl 30 mg tablet 30 mg PO QDAY BP 10/04/23 sulindac 200 mg tablet 200 mg PO BID arthritis 08/26/24 cholecalciferol (vitamin D3) 25 mcg (1,000 unit) capsule (Vitamin D3) 125 mcg PO DAILY supplement 10/08/24 magnesium 250 mg tablet 400 mg PO DAILY sleep 10/08/24 turmeric 400 mg capsule 500 mg PO DAILY supplement 10/18/24 omeprazole 40 mg capsule,delayed release 40 mg PO BID acid reflux 12/02/24 ondansetron HCl 4 mg tablet 4 mg PO Q6H PRN nausea and vomiting #8 tabs 12/12/24 calcium 500 mg tablet 1,000 mg PO DAILY supplement 12/18/24 cholecalciferol (vitamin D3) 125 mcg (5,000 unit) tablet (Vitamin D3) 125 mcg PO DAILY SUPPLEMENT 12/18/24 magnesium 200 mg tablet 400 mg PO QHS sleep support 12/18/24 vitamin B complex (Vitamins B Complex capsule) 1 cap PO DAILY supplement 12/18/24 ciprofloxacin HCl 500 mg tablet (Cipro) 500 mg PO BID #10 tabs 12/19/24 Hospital Course Operations None Procedures None Summary of Care Provided Minutes Spent on Discharge: 45 Hospital Course: Patient is an 84-year-old female with past medical history as outlined was admitted through the ED on 12/17/2024 with complaint of nausea and vomiting as well as constipation she had been going on for about 3 days prior to admission. She also had increased urinary frequency. She had been seen by urology on the day of presentation and started on antibiotics due to concern for UTI. She had had a recent cholecystectomy on 12/02/2024 and subsequently developed the symptoms so she was sent to the ED for evaluation. Urinalysis did not show evidence of UTI WBC was elevated at 14.9. CT of the abdomen and pelvis showed dense colonic stool with possible constipation and colonic diverticula with no evidence of diverticulitis. She was admitted and managed for UTI as well as severe constipation. She was started on laxatives and IV ceftriaxone. Patient subsequently did have some bowel movements which help relieve her constipation. Her WBC trended down and normalized. Urine cultures grew gram-negative rods possibly Pseudomonas species. She remained stable and requested to go home on 12/19/2024. She was hemodynamically stable and felt much better. She was therefore discharged home on p.o. ciprofloxacin for 5-day course as this would cover Pseudomonas. She is follow-up with her primary care doctor within 1 to 2 weeks. Patient seen and examined prior to discharge. She had no active complaints and felt well. She felt ready to be discharged. Review of symptoms otherwise negative. Labs and vitals reviewed. Home medication reviewed and reconciled. Physical Exam Const alert and oriented x3 General Appearance: cooperative and comfortable Exam Limitations: no limitations HEENT normocephalic, head/scalp atraumatic, hearing grossly normal bilaterally and moist oral mucous membranes Mouth: oral and palatal mucosa normal Eyes EOMs intact bilaterally and conjunctivae normal Neck no lymphadenopathy and supple Lymph Lymphatic: no lymphedema noted Resp normal respiratory effort, normal air movement and clear to auscultation bilaterally Cardio regular rate, regular rhythm, S1 normal heart sound, S2 normal heart sound and no murmurs GI normal to inspection, nondistended, normoactive bowel sounds and soft to palpation Extremity normal to inspection, full ROM, normal capillary refill, no clubbing, cyanosis or edema and no calf tenderness General Extremity: no tenderness to palpation of joints or extremities Skin no rashes or lesions noted General Skin Exam: no breakdown Neuro oriented x3, CN's II-XII intact bilaterally, moves all extremities, no focal motor deficits and no sensory deficits noted Sensorium / Orientation: awake and alert Motor Exam: general weakness Psych thought process normal and cooperative Appearance: appropriate Weight / BMI Weight Weight: 131 lb 6.328 oz Body Mass Index (BMI) 21.8 ABG / Lab / Microbiology Data 12/19/24 05:12 12/19/24 05:12 Laboratory: Laboratory Results - last 24 hr 12/19/24 05:12: WBC 6.9, RBC 3.39 L, Hgb 10.6 L, Hct 31.4 L, MCV 92.6, MCH 31.3, MCHC 33.8, RDW Std Deviation 44.1 H, RDW Coeff of [place] 13.0, Plt Count 295, MPV 9.0, Immature Gran % (Auto) 0.400, Neut % (Auto) 53.5, Lymph % (Auto) 29.9, [place] % (Auto) 9.8, Eos % (Auto) 5.8 H, Baso % (Auto) 0.6, Absolute Neuts (auto) 3.7, Absolute Lymphs (auto) 2.07, Nucleated RBC % 0, Sodium 136, Potassium 3.7, Chloride 104, Carbon Dioxide 23.0, Anion Gap 9, BUN 22 H, Creatinine 0.79, Estim Creat Clear Calc 48.79 L, Est GFR (MDRD) Non-Af 75, BUN/Creatinine Ratio 27.8 H, Glucose 82, Calcium 7.9 Microbiology: Microbiology 12/17/24 21:34 Urine, Clean Catch Urine Culture - Preliminary GNR Poss Pseudomonas sp D/C Instructions Discharge Diet: Low fat / Low cholesterol Discharge Activity: Return to Normal Activity Weight Bearing Status: Weight bearing as tolerated Call your doctor if you observe: Fever of 101 or Higher, Shortness of breath, Dizziness, Swelling in the ankles, Chest pain and Uncontrolled pain DC O2, CPAP, BIPAP Needs Home O2 Discharge instructions: No DC home with Oxygen: No Meaningful Use Info Meaningful Use Meaningful Use Diagnoses (Choose all that apply): None applicable Ischemic Stroke Statin Dosing Therapy Reference: STATIN DOSE THERAPY REFERENCE: * Patients > 75 years receive moderate or high dose statin therapy. * Patients 75 years or YOUNGER should receive HIGH intensity statin dose unless contraindicated. You will be required to document reason for non-treatment if statin daily dose does not meet guidelines. HIGH DOSE STATIN THERAPY DAILY Atorvastatin > than or = to 40 mg Rosuvastatin > than or = to 20 mg Amlodipine + Atorvastatin > than or = to 2.5/40 mg Ezetimibe + Simvastatin 10/80 mg Simvastatin 80mg Discharge Plan Admission Admit Date/Time: 12/17/24 22:48 Primary Reason for Your Visit: UTI, constipation Attending Provider: Berkley Shukla Primary Care Provider: Danielle Paige Consulting Providers: Ale Newton Instructions Patient Instructions: ED UTI Fem Ch Discharge Orders/Prescriptions Prescriptions: New ciprofloxacin HCl [Cipro] 500 mg tablet 500 mg PO BID Qty: 10 0RF Continued mecobalamin (vitamin B12) 1,000 mcg tablet,chewable 1,000 mcg PO DAILY diltiazem HCl 30 mg tablet 30 mg PO QDAY sulindac 200 mg tablet 200 mg PO BID ondansetron HCl 4 mg tablet 4 mg PO Q6H PRN (Reason: nausea and vomiting) Qty: 8 0RF calcium carbonate-vitamin D3 600 mg-20 mcg (800 unit) tablet 1 tab PO BID denosumab 60 MG/ML syringe 60 mg subcut .Q6 MONTHS Rx Instructions: every 6 months liothyronine [Cytomel] 5 mcg tablet 5 mcg PO DAILY turmeric 400 mg capsule 500 mg PO DAILY cholecalciferol (vitamin D3) [Vitamin D3] 25 mcg (1,000 unit) capsule 125 mcg PO DAILY magnesium 250 mg tablet 400 mg PO DAILY omeprazole 40 mg capsule,delayed release(DR/EC) 40 mg PO BID cholecalciferol (vitamin D3) [Vitamin D3] 125 mcg (5,000 unit) tablet 125 mcg PO DAILY magnesium 200 mg tablet 400 mg PO QHS vitamin B complex [Vitamins B Complex] Capsule 1 cap PO DAILY calcium 500 mg tablet 1,000 mg PO DAILY Referrals / Follow Up: Danielle Paige DO [Primary Care Provider] - Within 1 Week Disposition Disposition (needs filled in before D/C Order can be placed): Home, Self Care Charges/Coding Visit Charges Inpatient E&M: 38482 Disch Hosp >30min
--- NOTE | 2024-12-19 12:29 | CASEMGMT ---
Patient has order for discharge. RN CM in to discuss needs at discharge. Patient denies needs or help at discharge. Patient had no further questions or concerns.
[2024-12-19 14:00] VITALS: BP 105/62; PULSE 79; RESP 16; TEMP 36.8; O2SAT 96
--- NOTE | 2024-12-19 15:11 | CHAPLAIN ---
Type of Pastoral Visit _x__ Initial Visit ___ Follow-up Visit ___ On-call Visit ___ General Patient Visit ___ Spiritual Assessment ___ Family Conference ___ Bereavement ___ Rapid Response ___ Code Blue ___ Other (describe below) Pastoral Care Referral From _x__ Patient ___ Family ___ Nurse ___ Physician ___ Supplier Quality Engineering Manager ___ Customer Services Coordinator ___ Other (describe below) Sacrament/Intervention _x__ Active listening ___ Anointing ___ Mosque ___ Bereavement ___ Communion ___ Loan exploration ___ ___ Life review _x__ Prayer ___ Reconciliation ___ Sacrament of Sick _x__ Supportive presence ___ Wedding ___ Other (describe below) Pastoral Comments 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
== END 2024-12-19 14:51 | disposition home or self-care (01) | DRG 872 ==
LOC: ED 22:14 → PCU 23:29
PROVIDERS: Admitting Provider Family Medicine; Emergency Provider Surgery; PCP Family Medicine; Visit Provider Student in an Organized Health Care Education/Training Program
DX: A41.52 Sepsis due to Pseudomonas (principal); N39.0 Urinary tract infection, site not specified; E03.9 Hypothyroidism, unspecified; Z51.5 Encounter for palliative care; Z66 Do not resuscitate; G25.81 Restless legs syndrome; J45.909 Unspecified asthma, uncomplicated; I12.9 Hypertensive chronic kidney disease with stage 1 through stage 4 chronic kidney disease, or unspecified chronic kidney disease; N18.2 Chronic kidney disease, stage 2 (mild); K21.9 Gastro-esophageal reflux disease without esophagitis; K57.30 Diverticulosis of large intestine without perforation or abscess without bleeding; K59.00 Constipation, unspecified; R65.10 Systemic inflammatory response syndrome (SIRS) of non-infectious origin without acute organ dysfunction; Z90.49 Acquired absence of other specified parts of digestive tract
CPT/HCPCS: 36415; 74177; 80048; 80053; 81001; 83605; 83690; 85025; 87077; 87086; 87088; 87184; 87186; 93005; 94668; 97802; 99252; 99285; Q9967; A4216; G0463; J2405

== ENCOUNTER → 2024-12-23 | Outpatient (CLI) | payer MEDICARE, OTHER, SELFPAY ==
--- NOTE | 2024-12-23 16:03 | RAD_ITS ---
PROCEDURE: ABDOMEN SINGLE VIEW 12/23/2024 REASON FOR EXAM: STOOL BURDEN TECHNIQUE: Single view abdomen. COMPARISON: CT scan on 12/17/2024. FINDINGS: Mild amount of fecal residue in the large bowels, slightly decreased. Presacral stimulator is again noted. Diffuse spondylosis. Normal visualized lung bases. There is an unremarkable bowel gas pattern. There is no demonstrated free abdominal air. Normal visualized liver. Normal visualized spleen. Normal visualized kidneys. The soft tissue structures of the pelvis are unremarkable. RAD/Abdomen Single View IMPRESSION: Mild amount of fecal residue in the large bowels, slightly decreased. Reading Location: [facility]
== END | disposition home or self-care (01) ==
LOC: MTRAD 15:58
PROVIDERS: PCP Family Medicine; Referring Provider Nurse Practitioner Family; Visit Provider Nurse Practitioner Family
DX: R14.0 Abdominal distension (gaseous) (principal); K59.00 Constipation, unspecified
CPT/HCPCS: 74018

== ENCOUNTER → 2025-01-01 | Outpatient (CLI) | payer MEDICARE, OTHER, SELFPAY ==
--- NOTE | 2025-01-01 09:17 | RAD_ITS ---
PROCEDURE: ABDOMEN SINGLE VIEW 01/01/2025 REASON FOR EXAM: R/O CONSTIPATION TECHNIQUE: ABDOMEN SINGLE VIEW COMPARISON: 12/23/2024. FINDINGS: Mild amount of fecal residue in the large bowels, slightly increased. Normal visualized lung bases. There is an unremarkable bowel gas pattern. There is no demonstrated free abdominal air. Normal visualized liver. Normal visualized spleen. Normal visualized kidneys. The soft tissue structures of the pelvis are unremarkable. Diffuse spondylosis. Stimulator device is again noted. RAD/Abdomen Single View IMPRESSION: Mild amount of fecal residue in the large bowels, slightly increased. Reading [facility]
[2025-01-01 10:27] LABS: Absolute Lymphocyte Count 1.63 X10^3/uL (0.83-4.51); Absolute Neutrophil Count 2.6 X10^3/uL (2.0-7.7); Basophil# 0.04 X10^3/uL; Basophil% 0.8 % (0-1); Eosinophil# 0.29 X10^3/uL; Eosinophils% 5.6 % (0-5); Hematocrit 38.8 % (37-47); Lymphocyte # 1.63 X10^3/ul (0.83-4.51); Lymphocyte % 31.2 % (19-41); Mean Corp Hgb Conc 33.5 g/dL (32-36); Mean Corpuscular Hgb 31.8 pg (27.0-32.0); Mean Corpuscular Volume 94.9 fL (81-99); Mean Platelet Vol. 9.8 fl (6.2-12.0); Monocyte# 0.65 X10^3/uL; Monocyte% 12.5 % (0-10); NRBC Flagged by Analyzer 0 % (0-5); Neutrophil # 2.59 X10^3/uL (2.7-7.7); Neutrophil % 49.5 % (47-70); Platelet Count 249 K/mm3 (150-450); RBC Distribution Width CV 13.7 % (11.6-14.6); RBC Distribution Width SD 47.8 fl (35.1-43.9); Red Blood Count 4.09 M/mm3 (4.2-5.4); White Blood Count 5.2 K/mm3 (4.4-11.0)
== END | disposition home or self-care (01) ==
LOC: LAB 09:06
PROVIDERS: PCP Family Medicine; Referring Provider Nurse Practitioner Acute Care; Visit Provider Nurse Practitioner Acute Care
DX: R10.13 Epigastric pain (principal); R14.0 Abdominal distension (gaseous); R11.0 Nausea; D64.9 Anemia, unspecified
CPT/HCPCS: 36415; 74018; 85025

== ENCOUNTER → 2025-02-05 | Outpatient (CLI) | payer MEDICARE, OTHER, SELFPAY ==
--- OUTSIDE RECORDS SUMMARY | 2025-02-05 06:19 | XMS RPT_ITS | CCD ---
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 Danielle Paige Primary Care Provider Dr. Danielle Paige Referring Provider [phone] Waylon BOAT FINISHER, BOAT FINISHER-C Abril Attending Provider Dr. Danielle Paige Primary Care Provider Dr. Danielle Paige Referring Provider Dr. Lon Berrios Attending Provider Waylon BOAT FINISHER, BOAT FINISHER-C Abril Attending Provider Dr. Danielle Paige Primary Care Provider Dr. Danielle Paige Referring Provider Dr. Danielle Paige Other Provider Dr. Jelani Mendoza Attending Provider Dr. Danielle Paige Primary Care Provider Dr. Danielle Paige Referring Provider Dr. Danielle Paige Other Provider Dr. Jelani Mendoza Attending Provider [phone] Lon Berrios Attending Provider [phone] Lon Berrios Referring Provider Dr. Lon Berrios Other Provider Royal, Dr. Santos Primary Care Provider Dr. Danielle Paige Referring Provider Dr. Lon Berrios Attending Provider Dr. Lon Berrios Referring Provider Dr. Lon Berrios Other Provider Dr. Sheryl Rankin Attending Provider Dr. Melvin Mcclelland Attending Provider Royal, Dr. Santos Primary Care Provider 1([facility])[phone] Dr. Lon Berrios Attending Provider 1([facility])[phone] Danielle Paige Referring Provider 1([facility])[phone] Liu ONTIVEROS, BOAT FINISHER-C Tory Attending Provider Dr. Melvin Mcclelland Referring Provider 1([facility])[phone] Melvin Mcclelland Other Provider Royal CARUSO, Danielle Parikh Primary Care Provider 1([facility])[phone] SAVANA LOYD Referring Unavailable VINI MAURER Attending Unavailable DANIELLE PAIGE Primary Care Unavailable Royal CARUSO, Dr. Santos Primary Care Provider 1([facility])[phone] Dr. Danielle Paige DO Attending Provider 1([facility])[phone] Royal CARUSO, Dr. Santos Referring Provider 1([facility])[phone] Kalin ONTIVEROS-CSavanna Attending Provider Abril Nolasco Attending Provider Dr. Aron Frank DO Attending Provider Dr. Aron Frank DO Referring Provider Savanna Linares Referring Provider Monika CARUSO, Dr. Sharp Other Provider [phone] Jerome PAYNE, Dr. Carlos Parikh Attending Provider Jerome PAYNE, Dr. Carlos Parikh Referring Provider Jerome PAYNE, Dr. Carlos Parikh Other Provider [phone] Royal CARUSO, Dr. Santos Primary Care Provider Royal DO, Dr. Santos Attending Provider [phone] [facility], Dr. Price Emergency Provider Lamar PAYNE, Dr. Ale Guillermo Admit Provider [phone] Lamar PAYNE, Dr. Ale Guillermo Other Provider Gayla PAYNE, Dr. Berkley Molina Attending Provider Gayla PAYNE, Dr. Berkley Molina Other Provider Royal CARUSO, Dr. Santos Primary Care Provider Royal DO, Dr. Santos Referring Provider Kalin BOAT FINISHER-CSavanna Attending Provider Ruben BOAT FINISHER-CCatalina Attending Provider Ruben BOAT FINISHER-C, Catalina Referring Provider Lamar PAYNE, Dr. Ale Guillermo Attending Provider Royal DO, Dr. Santos Primary Care Provider Royal DO, Dr. Santos Referring Provider [phone] Ny Stuart Attending Provider [phone] Royal DO, Dr. Santos Primary Care Provider [phone] Kalin BOAT FINISHER-C, Savanna Attending Provider Kalin BOAT FINISHER-CSavanna Referring Provider Monika DO, Dr. Sharp Attending Provider Waylon ONTIVEROS-CAbril Attending Provider Malys, Danielle Primary Care Unavailable Malys, Danielle Referring Unavailable Malys, Danielle Attending Unavailable Malys, Danielle Primary Care Unavailable Malys, Danielle Referring Unavailable Malys, Danielle Attending Unavailable Kalin, Savanna Referring Unavailable Savanna Gagnon Attending Unavailable Malys, Danielle Primary Care Unavailable Abril Connors NP Attending Unavailable Malys, Danielle Primary Care Unavailable Malys, Danielle Referring Unavailable Wanek, Carlos A Referring Unavailable Wanek, Carlos A Attending Unavailable Malys, Danielle Primary Care Unavailable Kalin, Savanna Attending Unavailable Kalin, Savanna Referring Unavailable Malys, Danielle Primary Care Unavailable Kalin, Savanna Attending Unavailable Kalin, Savanna Referring Unavailable Malys, Danielle Primary Care Unavailable Ny Stuart Referring Unavail able Malys, Danielle Primary Care Unavailable Ny Stuart Attending Unavail able Kalin, Savanna Attending Unavailable Kalin, Savanna Referring Unavailable Malys, Danielle Primary Care Unavailable Kalin, Savanna Attending Unavailable Malys, Danielle Primary Care Unavailable Malys, Danielle Referring Unavailable Wanek, Carlos A Attending Unavailable Malys, Danielle Primary Care Unavailable Malys, Danielle Referring Unavailable Kalin, Savanna Attending Unavailable Kalin, Savanna Referring Unavailable Malys, Danielle Primary Care Unavailable Kalin, Savanna Attending Unavailable Kalin, Savanna Referring Unavailable Malys, Danielle Primary Care Unavailable Friend, Aron Referring Unavailable Friend, Aron Attending Unavailable Malys, Danielle Primary Care Unavailable Kalin, Savanna Attending Unavailable Kalin, Savanna Referring Unavailable Malys, Danielle Primary Care Unavailable Ruben, Catalina Referring Unavailable Malys, Danielle Primary Care Unavailable Ruben, Catalina Attending Unavailable Malys, Danielle Primary Care Unavailable Malys, Danielle Referring Unavailable Malys, Danielle Attending Unavailable Kalin, Savanna Attending Unavailable Malys, Danielle Primary Care Unavailable Malys, Danielle Referring Unavailable Wanek, Carlos A Attending Unavailable Malys, Danielle Primary Care Unavailable Malys, Danielle Referring Unavailable Malys, Dnaielle Primary Care Unavailable Kalin, Savanna Attending Unavailable Malys, Danielle Referring Unavailable Friend, Aron Attending Unavailable Malys, Danielle Primary Care Unavailable Malys, Danielle Referring Unavailable Malys, Danielle Primary Care Unavailable KorBerkley drew Tracy Attending Unavailable White, Ale L Admitting Unavailable White, Ale L Consulting Unavailable Kalin, Savanna Attending Unavailable Malys, Danielle Primary Care Unavailable Malys, Danielle Referring Unavailable Malys, Danielle Primary Care Unavailable Malys, Danielle Attending Unavailable Malys, Danielle Primary Care Unavailable Abril Connors NP Attending Unavailable Malys, Danielle Referring Unavailable Koram, Berkley Tracy Attending Unavailable Malys, Danielle Primary Care Unavailable White, Ale L Consulting Unavailable White, Ale L Admitting Unavailable Koram, Berkley Tracy Consulting Unavailable White, Ale L Attending Unavailable Carlos Cano Attending Unavailable Carlos Cano Consulting Unavailable WanekCarlos A Referring Unavailable Malys, Danielle Primary Care Unavailable Friend, Aron Consulting Unavailable Malys, Danielle Primary Care Unavailable Friend, Aron Attending Unavailable Malys, Danielle Referring Unavailable Ny Stuart Attending Unavail able Malys, Danielle Primary Care Unavailable Malys, Danielle Referring Unavailable Savanna Gagnon Attending Unavailable Malys, Danielle Primary Care Unavailable Malys, Danielle Referring Unavailable Medications Current Medications Medication Drug Class(es) Dates Sig (Normalized) Sig (Original) acetaminophen 500 mg oral tablet (2 sources) Start: 11-05-2020 End: 11-05-2020 take 1 dose by mouth three times daily 1,000 mg, Oral, EVERY 8 HOURS SCHEDULED (3 times per day), First dose on [facility] 11/05/20 at 2200 Maximum dose of acetaminophen is 4000 mg from all sources in 24 hours. [id number] 200 actuat albuterol 0.09 mg/actuat metered dose inhaler (20 sources) beta2-Adrenergic Agonist Start: 01-23-2025 Albuterol Sulfate 90 mcg/actuation HFA aerosol inhaler Active 2 NMA INHALATION EVERY 4 HOURS as needed January 23, 2025 12:00am Start: 08-03-2020 End: 08-27-2024 Albuterol Sulfate 90 mcg/act uation HFA aerosol inhaler Discontinued 2 NMA INHALATION Q4H as needed for cough or chest tightness 8.5 3 February 12, 2023 6:09am August 27, 2024 [...] (2 sources) Anticholinergic, beta2-Adrenergic Agonist Start: 11-08-2020 ipratropium-albuterol (DUONEB) nebulizer solution 1 ampule Start: 11-05-2020 [...] Start: 11-07-2020 bisacodyl (DULCOLAX) suppository 10 mg Calcium (6 sources) Phosphate Binder, Calcium Start: 12-18-2024 take 2 tablets by mouth once daily Calcium 500 mg tablet Active 1000 mg PO DAILY December 18, 2024 12:00am supplement Start: 12-18-2024 take 2 tablets by mouth once d aily Calcium 500 mg tablet Active 1000 mg PO DAILY December 18, 2024 12:00am calcium carbonate 1500 mg oral tablet (1 source) take 1 tablet by mouth once daily calcium carbonate 600 MG TABS tablet Take 1 tablet by mouth daily 0 Active calcium, elemental, tab (3 sources) Start: 06-20-2013 take 1 tablet by mouth twice daily calcium, elemental, tab Take 1 tablet by mouth twice daily. 0 06/20/2013 Active 1 ml denosumab 60 mg/ml prefilled syringe (20 sources) RANK Ligand Inhibitor Start: 04-17-2020 Denosumab 60 MG/ML syringe Active 60 mg SC .Q6 MONTHS April 17, 2020 12:00am bone density every 6 months Start: 04-17-2020 inject 60 [...] by mouth 2 times daily 0 Active docusate sodium 50 mg / sennosides, long-term 8.6 mg oral tablet (1 source) Star [...] ug PO DAILY April 21, 2023 12:00am thyroid magnesium oxide 400 mg oral tablet (2 sources) Star t: 12-16 25 take 1 tablet by mouth twice daily Magnesium Oxide 400 mg magnesium tablet Active 400 mg PO TWICE A DAY January 09, 2025 12:00am meloxicam 7.5 mg oral tablet (4 sources) Nonsteroidal Anti-inflammatory Drug Star t: 12-03 13 take 1 tablet by mouth once daily meloxicam 7.5 mg tablet Take 1 tablet by mouth once daily. 30 tablet 0 06/20/2013 Active 24 hr metoprolol succinate 50 mg extended release oral tablet (6 sources) beta-Adrenergic Nataly Star t: 10-16 21 take 1.5 tablets by mouth once daily [...] TWICE A DAY December 02, 2024 12:00am acid reflux Start: 04-17-2020 End: 11-12-2024 take 1 capsule by mouth once daily Omeprazole 40 MG capsule,delayed release(DR/EC) Discontinued 40 mg PO DAILY April 17, 2020 12:00am November 12, 2024 9:29am Start: 05-14-2018 OMEPRAZOLE 40 MG CPDR take 1 capsule once daily OMEPRAZOLE [id number] Catalina Wilkes LPN take 40 mg by mouth once daily o meprazole magnesium (PRILOSEC ORAL) Take 40 mg by mouth once daily. Active oxyCODONE (1 source) Opioid Agonist Start: 11-07-2020 oxyCODONE (ROXICODONE) immediate release tablet 5 mg perflutren lipid microspheres (DEFINITY) injection 1.65 mg (1 source) Start: 11-08-2020 End: 11-11-2020 perflutren lipid microspheres (DEFINITY) injection 1.65 mg polyethylene glycol [id number] mg powder for oral solution (2 sources) [...] or with frequent/long duration piggyback infusions, Starting [facility] 11/05/20 at 1912 Administer at the same [...] 03/21/2024 Active sulindac 200 mg oral tablet (18 sources) Nonsteroidal Anti-inflammator y Drug Start: 08-26-2024 take 1 tablet by mouth twice daily Sulindac 200 mg tablet Active 200 mg PO TWICE A DAY August 26, 2024 1:00am arthritis Turmeric extract (13 sources) Start: 10-18-2024 take 1 capsule by mouth once daily Turmeric 400 mg capsule Active 500 mg PO DAILY October 18, 2024 12:00am supplement Start: 10-18-2024 take 1 capsule by mo uth once daily Turmeric 400 mg capsule Active 500 mg PO DAILY October 18, 2024 12:00am Vitamin B Complex (Vitamins B Complex) capsule (6 sources) Start: 12-18-2024 Vitamin B Comp song (Vitamins B Complex) capsule Active 1 NMA PO DAILY December 18, 2024 12:00am supplement Start: 12-18-2024 Vitamin B Comp song (Vitamins B Complex) capsule Active 1 NMA PO DAILY December 18, 2024 12:00am Completed/Discontinued Medications Medication Drug Class(es) Dates Sig (Normalized) Sig (Original) acetaminophen 325 mg / oxyCODONE hydrochloride 5 mg oral tablet (18 sources) Opioid Agonist Start: 12-17-2024 End: 12-18-2024 Oxycodone-Acetamino phen 5-325 mg tablet Discontinued 1 {tbl} PO EVERY 8 HOURS as needed for pain December 17, 2024 12:00am December 18, 2024 1:49am Start: 12-02-2024 End: 12-12-2024 Oxycodone-Acetaminophen (Per cocet) 5-325 mg tablet Discontinued 1 {tbl} PO Q8H as needed for pain 7 3 0 December 02, 2024 December 12, 2024 11:39am Abnormal ultrasound of abdomen Start: 11-09-2020 End: 11-16-2020 oxyCODONE-acetaminophen (PER COCET) 5-325 MG per tablet Indications: Nodule of apex of right lung Take 1 tablet by mouth every 6 hours as needed for Pain for up to 7 days. Intended supply: 7 days. Take lowest dose possible to manage pain 28 tablet 0 11/09/2020 11/16/2020 Active onabotulinumtoxina 100 unt injection (2 sources) Acetylcholine Release Inhibitor Start: 04-11-2024 End: 04-11-2024 inject 1 dose by intramuscular injection every 30 days 100 Units, INTRAMUSCULAR, ONCE (UP TO 30 DAYS AMB), 1 dose, On [facility] 04/11/24 at 1230, This record documents the [...] 0.5 mg INHALATION TWICE A DAY 120 3 January 05, 2021 12:00am January 14, 2021 [...] 2 NMA INHALATION TWICE A DAY 10.2 3 October 05, 2020 12:00am October 08, 2020 [...] 2 tablets once daily CALCIUM CARB-CHOLECALCIFEROL TABS [id number] Catalina Wilkes LPN calcium carbonate 1500 mg / cholecalciferol 800 unt oral tablet (20 sources) Vitamin D Start: 12-06-2014 End: 01-09-2025 Calcium Carbonate-Vitamin D3 600 mg-20 mcg (800 unit) tablet Discontinued 1 {tbl} PO TWICE A DAY September 11, 2023 3:29pm January 09, 2025 2:05pm supplement Start: 12-06-2014 End: 09-11-2023 take 1 tablet by mouth twice daily Calcium Carbonate-Vitamin D3 Active 1 TABLET PO TWICE A DAY September 11, 2023 3:29pm calcium chloride 0.0014 meq/ ml / potassium chloride 0.004 meq/ml / sodium chloride 0.103 meq/ml / sodium lactate 0.028 meq/ml injectable solution (2 sources) Start: 11-05-2020 End: 11-06-2020 Intravenous, at 75 mL/hr, CONTINUOUS, Starting [facility] 11/05/20 at 1930 Start: 11-05-2020 End: 11-05-2020 lactated ringers infusion celecoxib 200 mg oral capsule (1 source) Nonsteroidal Anti-inflammatory Drug Start: 11-05-2020 End: 11-05-2020 celecoxib (CELEBREX) capsule 200 mg Start: 11-05-2020 End: 11-05-2020 celecoxib (CELEBREX) capsule 200 mg cholecalciferol 0.125 mg oral tablet (20 sources) Vitamin D Start: 12-18-2024 End: 01-01-2025 take 1 tablet by mouth once daily Cholecalciferol (Vitamin D3) (Vitamin D3) 125 mcg (5,000 unit) tablet Discontinued 125 ug PO DAILY December 18, 2024 12:00am January 01, 2025 8:38am SUPPLEMENT Start: 10-08-2024 take 1 capsule by [facility] once daily Cholecalciferol (Vitamin D3) (Vitamin D3) 25 mcg (1,000 unit) capsule Active 125 ug PO DAILY October 08, 2024 12:00am supplement Start: 10-08-2024 take 1 capsule by mo ut once daily Cholecalciferol (Vitamin D3) (Vitamin D3) [...] take 1 capsule once daily CHOLECALCIFEROL CAPS [id number] Catalina Wilkes ROXANNE ciprofloxacin 500 mg oral tablet (6 sources) Quinolone Antimicrobial Start: 12-19-2024 End: 01-01-2025 take 1 tablet by mouth twice daily Ciprofloxacin Hcl (Cipro) 500 mg tablet Discontinued 500 mg PO TWICE A DAY 10 December 19, 2024 12:00am January 01, 2025 8:38am diclofenac sodium 75 mg delayed release oral tablet (20 sources) Nonsteroidal Anti-inflammatory Drug Start: 10-16-2020 End: 09-11-2023 take 1 tablet by mouth twice daily at mealtime Diclofenac Sodium 75 MG tablet Discontinued 75 mg PO TWICE DAILY WITH MEALS October 16, 2020 12:00am September 11, 2023 3:31pm dicyclomine hydrochloride 10 mg oral capsule (10 sources) Anticholinergic Start: 11-12-2024 End: 12-12-2024 take 1 capsule by mouth twice daily as needed for pain Dicyclomine 10 mg capsule Discontinued 10 mg PO TWICE A DAY as needed for abdominal pain 30 0 November 12, 2024 12:00am December 12, 2024 11:39am dilTIAZem hydrochloride 30 mg oral tablet (20 sources) Calcium Channel Nataly Start: 10-04-2023 End: 01-23-2025 take 1 tablet by mouth once daily Diltiazem Hcl 30 mg tablet Discontinued 30 mg PO daily October 04, 2023 12:00am January 23, 2025 8:21am BP famotidine 20 mg oral tablet (1 source) Histamine-2 Receptor Antagonist Start: 11-05-2020 End: 11-05-2020 famotidine (PEPCID) tablet 20 mg Start: 11-05-2020 End: 11-05-2020 famotidine (PEPCID) tablet 2 0 mg Fluticasone Propion-Salmeterol (20 sources) Corticosteroid, beta2-Adrenergic Agonist Start: 10-24-2023 End: 10-08-2024 Fluticasone Propion-Salmeterol (Advair Hfa) 230-21 mcg/actuation HFA aerosol inhaler Discontinued 2 NMA INHALATION TWICE A DAY 3 3 October 24, 2023 10:26am October 08, 2024 11:36am Start: 10-24-2023 End: 10-08-2024 Fluticasone Propion-Salmeter ol (Advair Hfa) 230-21 mcg/actuation [...] 2 NMA INHALATION TWICE A DAY 3 3 February 12, 2023 6:09am October 24, [...] 2 NMA INHALATION TWICE A DAY 3 3 January 09, 2023 10:29am February 12, [...] 09, 2023 10:29am Start: 11-22-2022 End: 01-09-2023 Fluticasone Propion-Salmeter ol [...] Discontinued 2 NMA INHALATION TWICE A DAY 06 18October 08, 2020 12:00am January 05, 2021 1:24pm [...] mg tablet Discontinued 20 mg PO DAILY 15 06October 06, 2023 12:00am January 04, 2024 9:47am [...] 1 tablet per day GINKGO BILOBA TABS [id number] Sukhi Christie LPN 1 ml HYDROmorphone hydrochloride 1 mg/ml cartridge (3 sources) Opioid Agonist Start: 11-05-2020 End: 11-05-2020 HYDROmorphone (DILAUDID) 1 MG/ML injection Start: 11-05-2020 End: 11-05-2020 HYDROmorphone (DILAUDID) inj ection 0.5 mg HYDROmorphone (DILAUDID) 30 mg in sodium chloride 0.9 % 30 mL UTILITY LINEMAN (1 source) Start: 11-05-2020 End: 11-07-2020 HYDROmorphone (DILAUDID) 30 mg in sodium chloride 0.9 % 30 mL UTILITY LINEMAN linaclotide 0.145 mg oral capsule (5 sources) Guanylate Cyclase-C Agonist Start: 01-06-2025 End: 01-09-2025 Linaclotide (Linzess) 145 mcg capsule Discontinued 145 ug PO EVERY MORNING 30 January 08, 2025 5:38pm January 09, 2025 2:04pm take once daily on an empty stomach 30 minutes before first meal 1 ml LORazepam 2 mg/ml injection (1 source) Benzodiazepine Start: 11-05-2020 End: 11-05-2020 LORazepam (ATIVAN) injection 0.5 mg Magnesium (20 sources) Start: 12-18-2024 End: 01-09-2025 take 2 tablets by mouth at bedtime Magnesium 200 mg tablet Discontinued 400 mg PO AT BEDTIME December 18, 2024 12:00am January 09, 2025 2:01pm sleep support Start: 12-18-2024 End: 01-09-2025 take 2 tablets by mouth at bedtime Magnesium 200 mg tablet Discontinued 400 mg PO AT BEDTIME December 18, 2024 12:00am January 09, 2025 2:01pm Start: 12-18-2024 take 2 tablets by mo [facility] at bedtime Magnesium 200 mg tablet Active 400 mg PO AT BEDTIME December 18, 2024 12:00am Start: 10-08-2024 End: 01-09-2025 Magnesium 250 mg tablet Disc ontinued 400 mg PO DAILY October 08, 2024 12:00am January 09, 2025 2:01pm sleep Start: 10-08-2024 End: 01-09-2025 Magnesium 250 mg tablet Disc ontinued 400 mg PO DAILY October 08, 2024 12:00am January 09, 2025 2:01pm Start: 10-08-2024 Magnesium 250 mg tablet Active 400 mg PO DAILY October 08, 2024 12:00am Start: 10-08-2024 take 1 tablet by anthony once daily Magnesium 250 mg tablet Active 250 mg PO DAILY October 08, 2024 12:00am mecobalamin 1 mg chewable tablet (20 sources) Start: 09-11-2023 End: 01-01-2025 take 1 tablet by mouth once daily Mecobalamin (Vitamin B12) 1,000 mcg tablet,chewable Discontinued 1000 ug PO DAILY September 11, 2023 1:00am January 01, 2025 8:38am vitamin MULTIPLE VITAMINS-MINERALS (1 source) Start: 02-24-2015 MULTIVITAMIN ADULTS TABS take 1 tablet once daily MULTIPLE VITAMINS-MINERALS [id number] Catalina Katrin BIN FILLER ondansetron 4 mg oral tablet (9 sources) Serotonin-3 Receptor Antagonist Start: 12-12-2024 End: 01-01-2025 take 1 tablet by mouth every six hours as needed for nausea and vomiting Ondansetron Hcl 4 mg tablet Discontinued 4 mg PO EVERY 6 HOURS as needed for nausea and vomiting December 12, 2024 12:00am January 01, 2025 8:38am Start: 11-05-2020 4 mg, Intraven ous, EVERY 6 HOURS PRN, Nausea, Vomiting, Starting [facility] 11/05/20 at 1912 oxaprozin 600 mg oral tablet (20 sources) Nonsteroidal Anti-inflammatory Drug Start: 09-11-2023 End: 08-26-2024 take 1 tablet by mouth twice daily Oxaprozin 600 mg tablet Discontinued 600 mg PO TWICE A DAY September 11, 2023 1:00am August 26, 2024 5:28pm predniSONE 20 mg oral tablet (18 sources) Start: 12-05-2023 End: 01-04-2024 take 3 tablets by mouth once daily at mealtime Prednisone 20 mg tablet Discontinued 60 mg PO daily December 05, 2023 12:00am January 04, 2024 9:48am administer with food or milk Problems Active Problems Problem Classification Problem Date Documented Da te Episodic/Chronic Abdominal pain (20 sources) Abdominal pain; Translations: [Unspecified abdominal pain] Onset: 10-17-2024 Episodic Asthma (20 sources) Asthma; Translations: [Unspecified asthma, uncomplicated] 06-03-2022 Chronic Biliary tract disease (20 sources) Polyp of gallbladder; Translations: [Cholesterolosis of gallbladder] 11-18-2024 Episodic Cancer of bronchus; lung (20 sources) History of malignant neoplasm of thoracic cavity structure; Translations: [Personal history of other malignant neoplasm of bronchus and lung] Onset: 5 10-09-2024 Episodic Cardiac dysrhythmias (20 sources) Tachycardia; Translations: [Tachycardia, unspecified] 09-11-2023 Episodic Chronic obstructive pulmonary disease and bronchiectasis (15 sources) Chronic obstructive lung disease; Translations: [Chronic obstructive pulmonary disease, unspecified] 08-03-2020 Chronic Complications of surgical procedures or medical care (16 sources) Seroma following procedure; Translations: [Seroma complicating a procedure] 12-14-2024 Episodic Coronary atherosclerosis and other heart disease (2 sources) Calcification of coronary artery; Translations: [Atherosclerotic heart disease of [place] coronary artery without angina pectoris] 01-09-2025 Chronic Deficiency and other anemia (1 source) Anemia, unspecified; Translations: [Anemia, unspecified] Onset: Episodic Disorders of lipid metabolism (20 sources) Hyperlipidemia; Translations: [Hyperlipidemia, unspecified] 09-11-2023 Chronic Esophageal disorders (15 sources) Gastro-esophageal reflux disease without esophagitis; Translations: [Gastroesophageal reflux disease] Onset: 0 08-27-2024 Chronic Genitourinary symptoms and ill-defined conditions (1 source) Urge incontinence; Translations: [URGE INCONTINENCE] Onset: 0 Chronic Malaise and fatigue (6 sources) Fatigue; Translations: [Other fatigue] 01-01-2025 Episodic Nausea and vomiting (20 sources) Nausea; Translations: [Nausea] Onset: 5 11-12-2024 Episodic Nonspecific chest pain (7 sources) Chest pain; Translations: [Chest pain, unspecified] Onset: 4 01-09-2025 Episodic Comment on above: REPORTS HAVING CHEST PAIN ALL THE TIME-THINKS ITS SCAR TISSUE FROM SURGERY Osteoarthritis (20 sources) Unspecified osteoarthritis, unspecified site; Translations: [Osteoarthrosis of the carpometacarpal joint of the thumb] Onset: 6 10-02-2018 Chronic Osteoporosis (20 sources) Osteoporosis; Translations: [Age-related osteoporosis without current pathological fracture] Onset: 5 09-11-2023 Chronic Other aftercare (1 source) senior living (current) use of non-steroidal anti-inflammatories (NSAID); Translations: [PRISON USE NSAID] Onset: 0 Episodic Other aftercare (1 source) Other longitudinal float operator (current) drug therapy; Translations: [OTH PRISON CURRENT DRUG THERAPY] Onset: 0 Episodic Other aftercare (1 source) Antibiotic prophylaxis indicated; Translations: [intermediate frame tender (current) use of antibiotics] 03-21-2024 Episodic Other [...] [Dysphagia, unspecified] 08-27-2024 Episodic Other gastrointestinal disorders (20 sources) Abdominal bloating; Translations: [Abdominal distension (gaseous)] 10-17-2024 Episodic Other gastrointestinal disorders (1 source) Abdominal distension (gaseous); Translations: [Abdominal distension (gaseous)] Onset: 5 Episodic Other gastrointestinal disorders (2 sources) Dysphagia, unspecified; Translations: [Dysphagia, unspecified] Onset: 5 Episodic Other hereditary and degenerative nervous system conditions (20 sources) Restless legs; Translations: [Restless legs syndrome] [...] field] 08-03-2020 Episodic Other lower respiratory disease (20 sources) Dyspnea; Translations: [Shortness of breath] 10-04-2023 [...] up 2lbs in the past 3 weeks Residual codes; unclassified (1 source) Acquired absence of other specified parts of digestive tract; Translations: [Acquired absence of other specified parts of digestive tract] Onset: 5 Episodic Spondylosis; intervertebral disc disorders; other back problems (1 source) Degeneration of cervical intervertebral disc; Translations: [Other cervical disc degeneration, unspecified cervical region] Onset: 5 04-09-2015 Chronic Unclassified (2 sources) Cough, unspecified; Translations: [Cough, unspecified] Onset: 5 Unclassified (1 source) Elevation of levels of liver transaminase levels; Translations: [Elevation of levels of liver transaminase levels] Onset: 5 Urinary tract infections (16 sources) Urinary tract infectious disease; Translations: [Urinary tract infection, site not specified] Onset: 5 12-17-2024 Episodic Past or Other Problems Problem Classification Problem Date Documented Date Episodic/Chronic Other connective tissue disease (1 source) [...] [Pain in unspecified joint] Onset: 08-29-2024 Episodic Other nutritional; endocrine; and metabolic disorders (1 source) Abnormal weight loss; Translations: [Abnormal weight loss] Onset: 10-18-2024 Episodic Other screening for suspected conditions (not mental disorders or infectious disease) (20 sources) Ultrasonography of abdomen abnormal; Translations: [Abnormal findings on diagnostic imaging of other abdominal regions, including retroperitoneum] Onset: 10-22-2024 10-09-2024 Episodic Comment on above: elevated 10.2 [...] may represent gallbladder neoplasm or gallbladder sludge. Unclassified (1 source) Problem Results Test Name Value Interpretation Reference Range Facility Pulmonary Visit Reporton Pulmonary Visit Report Normal [facility] Cardiology Visit Reporton Cardiology Visit Report Normal [facility] Abdomen Single Viewon 2024 Abdomen Single View Normal [facility] Absolute lymphocyte countOrd ered By: Savanna Gagnon on 01-01-2025 Lymphocytes Auto (Unsp spec) [#/Vol] 1.63 10*3/uL 0.83-4.51 [facility] Absolute neutrophil countOrd ered By: Savanna Gagnon on 01-01-2025 Neutrophils (Bld) [#/Vol] 2.6 10*3/uL 2.0-7.7 [facility] Automated lymphocyte count a s percentage of total leukocytesOrdered By: Savanna aGgnon on 01-01-2025 Lymphocytes/100 WBC Auto (Unsp spec) 31.2 % 19-41 [facility] Basophil percentageOrdered B y: Savanna Gagnon on 01-01-2025 Basophils/100 WBC (Bld) 0.8 % 0-1 [facility] CBC W/Diff, Automatedon 12-15 Absolute Lymph 1.63 X10 3/uL Normal 0.83-4.51 [facility] Comment on above: Performed By: #### L 100.0100 ####[facility] [address] [place], [address] Absolute Neut 2.6 X10 3/uL Normal 2.0-7.7 [facility] Comment on above: Performed By: #### L 100.0100 ####[facility] [address] [place], [address] Basophils/100 WBC (Bld) 0.8 % Normal 0-1 [facility] Comment on above: Performed By: #### L 100.0100 ####[facility] [address] [place], [address] Eosinophils/100 WBC (Bld) 5.6 % High 0-5 [facility] Comment on above: Performed By: #### L 100.0100 ####[facility] [address] [place], [address] Erythrocyte distribution width (RBC) [Ratio] 13.7 % Normal 11.6-14.6 [facility] Comment on above: Performed By: #### L 100.0100 ####[facility] [address] [place], [address] Hematocrit (Bld) [Volume fraction] 38.8 % Normal 37-47 [facility] Comment on above: Performed By: #### L 100.0100 ####[facility] [address] [place], [address] Hemoglobin (Bld) [Mass/Vol] 13.0 g/dL Normal 12.0-15. 0 [facility] Comment on above: Performed By: #### L 100.0100 ####[facility] [address] [place], [address] IG% 0.400 Normal 0.0-0.9 [facility] Comment on above: Result Comment: IG% - Immature Granulocytes (promyelocytes, myelocytes andmetamyelocytes) > 1% indicates that a LEFT SHIFT is Present. Performed By: #### L 100.0100 ####[facility] [address] [place], [address] Lymphocytes/100 WBC (Bld) 31.2 % Normal 19-41 [facility] Comment on above: Performed By: #### L 100.0100 ####[facility] [address] [place], [address] MCH (RBC) [Entitic mass] 31.8 pg Normal 27.0-32.0 [facility] Comment on above: Performed By: #### L 100.0100 ####[facility] [address] [place], [address] MCHC (RBC) [Mass/Vol] 33.5 g/dL Normal 32-36 [facility] Comment on above: Performed By: #### L 100.0100 ####[facility] [address] [place], [address] MCV (RBC) [Entitic vol] 94.9 fL Normal 81-99 [facility] Comment on above: Performed By: #### L 100.0100 ####[facility] [address] [place], [address] Monocytes/100 WBC (Bld) 12.5 % High 0-10 [facility] Comment on above: Performed By: #### L 100.0100 ####[facility] [address] [place], [address] Neutrophils/100 WBC (Bld) 49.5 % Normal 47-70 [facility] Comment on above: Performed By: #### L 100.0100 ####[facility] [address] [place], [address] Nucleated RBC (Bld) [#/Vol] 0 10*3/uL Normal 0-5 [facility] Comment on above: Performed By: #### L 100.0100 ####[facility] [address] [place], [address] Platelet mean volume (Bld) [Entitic vol] 9.8 fL Normal 6.2-12.0 [facility] Comment on above: Performed By: #### L 100.0100 ####[facility] [address] [place], [address] Platelets (Bld) [#/Vol] 249 10*3/uL Normal 150-450 [facility] Comment on above: Performed By: #### L 100.0100 ####[facility] [address] [place], [address] RBC (Bld) [#/Vol] 4.09 10*6/uL Low 4.2-5.4 [facility] Comment on above: Performed By: #### L 100.0100 ####[facility] [address] [place], [address] RDW SD 47.8 fl High 35.1-43.9 [facility] Comment on above: Performed By: #### L 100.0100 ####[facility] [address] [place], [address] WBC (Bld) [#/Vol] 5.2 10*3/uL Normal 4.4-11.0 [facility] Comment on above: Performed By: #### L 100.0100 ####[facility] [address] [place], [address] Eosinophil percentageOrdered By: Savanna Gagnon on 01-01-2025 Eosinophils/100 WBC (Bld) 5.6 % High 0-5 [facility] Erythrocyte distribution wid th ratioOrdered By: Savanna Gagnon on 01-01-2025 Erythrocyte distribution width (RBC) [Ratio] 13.7 % 11.6-14.6 [facility] Erythrocyte distribution wid th standard deviationOrdered By: Savanna Gagnon on 01-01-2025 Erythrocyte distribution width (RBC) [Ratio] 47.8 fl High 35.1-43.9 [facility] Gastroenterology Visit Repor ton 01-01-2025 Gastroenterology Visit Report Normal [facility] Hematocrit Auto (Bld) [Volum e fraction]Ordered By: Savanna Gagnon on 01-01-2025 Hematocrit (Bld) [Volume fraction] 38.8 % 37-47 [facility] Hemoglobin measurementOrdere d By: Savanna Gagnon on 01-01-2025 Hemoglobin (Bld) [Mass/Vol] 13.0 g/dL 12.0-15. 0 [facility] Immature granulocytes/100 WB C Auto (Bld)Ordered By: Savanna Gagnon on 01-01-2025 Immature granulocytes/100 WBC (Bld) 0.400 % 0.0-0.9 [facility] Comment on above: IG% - Immature Granu locytes (promyelocytes, myelocytes and metamyelocytes) > 1% indicates that a LEFT SHIFT is Present. MCV (mean corpuscular volume ) determinationOrdered By: Savanna Gagnon on 01-01-2025 MCV (RBC) [Entitic vol] 94.9 fL 81-99 [facility] Mean corpuscular hemoglobin (MCH) determinationOrdered By: Savanna Gagnon on 01-01-2025 MCH (RBC) [Entitic mass] 31.8 pg 27.0-32.0 [facility] Mean corpuscular hemoglobin concentration (MCHC) determinationOrdered By: Savanna Gagnon on 01-01-2025 MCHC (RBC) [Mass/Vol] 33.5 g/dL 32-36 [facility] Mean platelet volume determi nationOrdered By: Savanna Gagnon on 01-01-2025 Platelet mean volume (Bld) [Entitic vol] 9.8 fL 6.2-12.0 [facility] Monocyte percentageOrdered B y: Savanna Gagnon on 01-01-2025 Monocytes/100 WBC (Bld) 12.5 % High 0-10 [facility] Neutrophil percentageOrdered By: Savanna Gagnon on 01-01-2025 Neutrophils/100 WBC (Bld) 49.5 % 47-70 [facility] Nucleated red blood cell per centageOrdered By: Savanna Gagnon on 01-01-2025 Nucleated RBC/100 WBC (Bld) [Ratio] 0 % 0-5 [facility] Platelet countOrdered By: Raf Gagnon on 01-01-2025 Platelets (Bld) [#/Vol] 249 10*3/uL 150-450 [facility] RBC Auto (Bld) [#/Vol]Ordere d By: Savanna Gagnon on 01-01-2025 RBC (Bld) [#/Vol] 4.09 10*6/uL Low 4.2-5.4 [facility] White blood cell (WBC) count Ordered By: Savanna Gagnon on 01-01-2025 WBC (Bld) [#/Vol] 5.2 10*3/uL 4.4-11.0 [facility] Basic Metabolic Profile (BMP )on 12-26-2024 BUN Normal 4-19 [facility] Comment on above: Result Comment: Canc elled via OM: Order cancelled - Patient discharged Performed By: #### L 500.2500, L100.0100 ####[facility] [address] [place], [address] BUN/CRE Normal 10-20 [facility] Comment on above: Result Comment: Canc elled via OM: Order cancelled - Patient discharged Performed By: #### L 500.2500, L100.0100 ####[facility] [address] [place], [address] Calcium Normal 7.6-11.0 [facility] Comment on above: Result Comment: Canc elled via OM: Order cancelled - Patient discharged Performed By: #### L 500.2500, L100.0100 ####[facility] [address] [place], [address] CL Normal 98-108 [facility] Comment on above: Result Comment: Canc elled via OM: Order cancelled - Patient discharged Performed By: #### L 500.2500, L100.0100 ####[facility] [address] [place], [address] CO2 Normal 21.0-32.0 [facility] Comment on above: Result Comment: Canc elled via OM: Order cancelled - Patient discharged Performed By: #### L 500.2500, L100.0100 ####[facility] [address] [place], [address] CREAT,SERUM Normal 0.70-1.20 [facility] Comment on above: Result Comment: Canc elled via OM: Order cancelled - Patient discharged Performed By: #### L 500.2500, L100.0100 ####[facility] [address] [place], [address] eGFR Normal >60 [facility] Comment on above: Result Comment: Canc elled via OM: Order cancelled - Patient discharged Performed By: #### L 500.2500, L100.0100 ####[facility] [address] [place], [address] GAP Normal 5-15 [facility] Comment on above: Result Comment: Canc elled via OM: Order cancelled - Patient discharged Performed By: #### L 500.2500, L100.0100 ####[facility] [address] [place], [address] GLU Normal 70-99 [facility] Comment on above: Result Comment: Canc elled via OM: Order cancelled - Patient discharged Performed By: #### L 500.2500, L100.0100 ####[facility] [address] [place], [address] Potassium Normal 3.3-5.1 [facility] Comment on above: Result Comment: Canc elled via OM: Order cancelled - Patient discharged Performed By: #### L 500.2500, L100.0100 ####[facility] [address] [place], [address] Basic Metabolic Profile (BMP) Normal 133-145 [facility] Comment on above: Result Comment: Canc elled via OM: Order cancelled - Patient discharged Performed By: #### L 500.2500, L100.0100 ####[facility] [address] [place], [address] CBC W/Diff, Automatedon - Absolute Neut Normal 2.0-7.7 [facility] Comment on above: Result Comment: Canc elled via OM: Order cancelled - Patient discharged Performed By: #### L 500.2500, L100.0100 ####[facility] [address] [place], [address] HCT Normal 37-47 [facility] Comment on above: Result Comment: Canc elled via OM: Order cancelled - Patient discharged Performed By: #### L 500.2500, L100.0100 ####[facility] [address] [place], [address] HGB Normal 12.0-15.0 [facility] Comment on above: Result Comment: Canc elled via OM: Order cancelled - Patient discharged Performed By: #### L 500.2500, L100.0100 ####[facility] [address] [place], [address] MCH Normal 27.0-32.0 [facility] Comment on above: Result Comment: Canc elled via OM: Order cancelled - Patient discharged Performed By: #### L 500.2500, L100.0100 ####[facility] [address] [place], [address] MCHC Normal 32-36 [facility] Comment on above: Result Comment: Canc elled via OM: Order cancelled - Patient discharged Performed By: #### L 500.2500, L100.0100 ####[facility] [address] [place], [address] MCV Normal 81-99 [facility] Comment on above: Result Comment: Canc elled via OM: Order cancelled - Patient discharged Performed By: #### L 500.2500, L100.0100 ####[facility] [address] [place], [address] NEUT% Normal 47-70 [facility] Comment on above: Result Comment: Canc elled via OM: Order cancelled - Patient discharged Performed By: #### L 500.2500, L100.0100 ####[facility] [address] [place], [address] PLT Normal 150-450 [facility] Comment on above: Result Comment: Canc elled via OM: Order cancelled - Patient discharged Performed By: #### L 500.2500, L100.0100 ####[facility] [address] [place], [address] RBC Normal 4.2-5.4 [facility] Comment on above: Result Comment: Canc elled via OM: Order cancelled - Patient discharged Performed By: #### L 500.2500, L100.0100 ####[facility] [address] [place], [address] RDW CV Normal 11.6-14.6 [facility] Comment on above: Result Comment: Canc elled via OM: Order cancelled - Patient discharged Performed By: #### L 500.2500, L100.0100 ####[facility] [address] [place], [address] RDW SD Normal 35.1-43.9 [facility] Comment on above: Result Comment: Canc elled via OM: Order cancelled - Patient discharged Performed By: #### L 500.2500, L100.0100 ####[facility] [address] [place], [address] WBC Normal 4.4-11.0 [facility] Comment on above: Result Comment: Canc elled via OM: Order cancelled - Patient discharged Performed By: #### L 500.2500, L100.0100 ####[facility] [address] [place], [address] Basic Metabolic Profile (BMP )on 12-25-2024 BUN Normal 4-19 [facility] Comment on above: Result Comment: Canc elled via OM: Order cancelled - Patient discharged Performed By: #### L 500.2500, L100.0100 ####[facility] [address] [place], [address] BUN/CRE Normal 10-20 [facility] Comment on above: Result Comment: Canc elled via OM: Order cancelled - Patient discharged Performed By: #### L 500.2500, L100.0100 ####[facility] [address] [place], [address] Calcium Normal 7.6-11.0 [facility] Comment on above: Result Comment: Canc elled via OM: Order cancelled - Patient discharged Performed By: #### L 500.2500, L100.0100 ####[facility] [address] [place], [address] CL Normal 98-108 [facility] Comment on above: Result Comment: Canc elled via OM: Order cancelled - Patient discharged Performed By: #### L 500.2500, L100.0100 ####[facility] [address] [place], [address] CO2 Normal 21.0-32.0 [facility] Comment on above: Result Comment: Canc elled via OM: Order cancelled - Patient discharged Performed By: #### L 500.2500, L100.0100 ####[facility] [address] [place], [address] CREAT,SERUM Normal 0.70-1.20 [facility] Comment on above: Result Comment: Canc elled via OM: Order cancelled - Patient discharged Performed By: #### L 500.2500, L100.0100 ####[facility] [address] [place], [address] eGFR Normal >60 [facility] Comment on above: Result Comment: Canc elled via OM: Order cancelled - Patient discharged Performed By: #### L 500.2500, L100.0100 ####[facility] [address] [place], [address] GAP Normal 5-15 [facility] Comment on above: Result Comment: Canc elled via OM: Order cancelled - Patient discharged Performed By: #### L 500.2500, L100.0100 ####[facility] [address] [place], [address] GLU Normal 70-99 [facility] Comment on above: Result Comment: Canc elled via OM: Order cancelled - Patient discharged Performed By: #### L 500.2500, L100.0100 ####[facility] [address] [place], [address] Potassium Normal 3.3-5.1 [facility] Comment on above: Result Comment: Canc elled via OM: Order cancelled - Patient discharged Performed By: #### L 500.2500, L100.0100 ####[facility] [address] [place], [address] Basic Metabolic Profile (BMP) Normal 133-145 [facility] Comment on above: Result Comment: Canc elled via OM: Order cancelled - Patient discharged Performed By: #### L 500.2500, L100.0100 ####[facility] [address] [place], [address] CBC W/Diff, Automatedon 06- Absolute Neut Normal 2.0-7.7 [facility] Comment on above: Result Comment: Canc elled via OM: Order cancelled - Patient discharged Performed By: #### L 500.2500, L100.0100 ####[facility] [address] [place], [address] HCT Normal 37-47 [facility] Comment on above: Result Comment: Canc elled via OM: Order cancelled - Patient discharged Performed By: #### L 500.2500, L100.0100 ####[facility] [address] [place], [address] HGB Normal 12.0-15.0 [facility] Comment on above: Result Comment: Canc elled via OM: Order cancelled - Patient discharged Performed By: #### L 500.2500, L100.0100 ####[facility] [address] [place], [address] MCH Normal 27.0-32.0 [facility] Comment on above: Result Comment: Canc elled via OM: Order cancelled - Patient discharged Performed By: #### L 500.2500, L100.0100 ####[facility] [address] [place], [address] MCHC Normal 32-36 [facility] Comment on above: Result Comment: Canc elled via OM: Order cancelled - Patient discharged Performed By: #### L 500.2500, L100.0100 ####[facility] [address] [place], [address] MCV Normal 81-99 [facility] Comment on above: Result Comment: Canc elled via OM: Order cancelled - Patient discharged Performed By: #### L 500.2500, L100.0100 ####[facility] [address] [place], [address] NEUT% Normal 47-70 [facility] Comment on above: Result Comment: Canc elled via OM: Order cancelled - Patient discharged Performed By: #### L 500.2500, L100.0100 ####[facility] [address] [place], [address] PLT Normal 150-450 [facility] Comment on above: Result Comment: Canc elled via OM: Order cancelled - Patient discharged Performed By: #### L 500.2500, L100.0100 ####[facility] [address] [place], [address] RBC Normal 4.2-5.4 [facility] Comment on above: Result Comment: Canc elled via OM: Order cancelled - Patient discharged Performed By: #### L 500.2500, L100.0100 ####[facility] [address] [place], [address] RDW CV Normal 11.6-14.6 [facility] Comment on above: Result Comment: Canc elled via OM: Order cancelled - Patient discharged Performed By: #### L 500.2500, L100.0100 ####[facility] [address] [place], [address] RDW SD Normal 35.1-43.9 [facility] Comment on above: Result Comment: Canc elled via OM: Order cancelled - Patient discharged Performed By: #### L 500.2500, L100.0100 ####[facility] [address] [place], [address] WBC Normal 4.4-11.0 [facility] Comment on above: Result Comment: Canc elled via OM: Order cancelled - Patient discharged Performed By: #### L 500.2500, L100.0100 ####[facility] [address] [place], [address] Basic Metabolic Profile (BMP )on 12-24-2024 BUN Normal 4-19 [facility] Comment on above: Result Comment: Canc elled via OM: Order cancelled - Patient discharged Performed By: #### L 100.0100, L500.2500 ####[facility] [address] [place], [address] BUN/CRE Normal 10-20 [facility] Comment on above: Result Comment: Canc elled via OM: Order cancelled - Patient discharged Performed By: #### L 100.0100, L500.2500 ####[facility] [address] [place], [address] Calcium Normal 7.6-11.0 [facility] Comment on above: Result Comment: Canc elled via OM: Order cancelled - Patient discharged Performed By: #### L 100.0100, L500.2500 ####[facility] [address] [place], [address] CL Normal 98-108 [facility] Comment on above: Result Comment: Canc elled via OM: Order cancelled - Patient discharged Performed By: #### L 100.0100, L500.2500 ####[facility] [address] [place], [address] CO2 Normal 21.0-32.0 [facility] Comment on above: Result Comment: Canc elled via OM: Order cancelled - Patient discharged Performed By: #### L 100.0100, L500.2500 ####[facility] [address] [place], [address] CREAT,SERUM Normal 0.70-1.20 [facility] Comment on above: Result Comment: Canc elled via OM: Order cancelled - Patient discharged Performed By: #### L 100.0100, L500.2500 ####[facility] [address] [place], [address] eGFR Normal >60 [facility] Comment on above: Result Comment: Canc elled via OM: Order cancelled - Patient discharged Performed By: #### L 100.0100, L500.2500 ####[facility] [address] [place], [address] GAP Normal 5-15 [facility] Comment on above: Result Comment: Canc elled via OM: Order cancelled - Patient discharged Performed By: #### L 100.0100, L500.2500 ####[facility] [address] [place], [address] GLU Normal 70-99 [facility] Comment on above: Result Comment: Canc elled via OM: Order cancelled - Patient discharged Performed By: #### L 100.0100, L500.2500 ####[facility] [address] [place], [address] Potassium Normal 3.3-5.1 [facility] Comment on above: Result Comment: Canc elled via OM: Order cancelled - Patient discharged Performed By: #### L 100.0100, L500.2500 ####[facility] [address] [place], [address] Basic Metabolic Profile (BMP) Normal 133-145 [facility] Comment on above: Result Comment: Canc elled via OM: Order cancelled - Patient discharged Performed By: #### L 100.0100, L500.2500 ####[facility] [address] [place], [address] CBC W/Diff, Automatedon 06-1 0-2024 Absolute Neut Normal 2.0-7.7 [facility] Comment on above: Result Comment: Canc elled via OM: Order cancelled - Patient discharged Performed By: #### L 100.0100, L500.2500 ####[facility] [address] [place], [address] HCT Normal 37-47 [facility] Comment on above: Result Comment: Canc elled via OM: Order cancelled - Patient discharged Performed By: #### L 100.0100, L500.2500 ####[facility] [address] [place], [address] HGB Normal 12.0-15.0 [facility] Comment on above: Result Comment: Canc elled via OM: Order cancelled - Patient discharged Performed By: #### L 100.0100, L500.2500 ####[facility] [address] [place], [address] MCH Normal 27.0-32.0 [facility] Comment on above: Result Comment: Canc elled via OM: Order cancelled - Patient discharged Performed By: #### L 100.0100, L500.2500 ####[facility] [address] [place], [address] MCHC Normal 32-36 [facility] Comment on above: Result Comment: Canc elled via OM: Order cancelled - Patient discharged Performed By: #### L 100.0100, L500.2500 ####[facility] [address] [place], [address] MCV Normal 81-99 [facility] Comment on above: Result Comment: Canc elled via OM: Order cancelled - Patient discharged Performed By: #### L 100.0100, L500.2500 ####[facility] [address] [place], [address] NEUT% Normal 47-70 [facility] Comment on above: Result Comment: Canc elled via OM: Order cancelled - Patient discharged Performed By: #### L 100.0100, L500.2500 ####[facility] [address] [place], [address] PLT Normal 150-450 [facility] Comment on above: Result Comment: Canc elled via OM: Order cancelled - Patient discharged Performed By: #### L 100.0100, L500.2500 ####[facility] [address] [place], [address] RBC Normal 4.2-5.4 [facility] Comment on above: Result Comment: Canc elled via OM: Order cancelled - Patient discharged Performed By: #### L 100.0100, L500.2500 ####[facility] [address] [place], [address] RDW CV Normal 11.6-14.6 [facility] Comment on above: Result Comment: Canc elled via OM: Order cancelled - Patient discharged Performed By: #### L 100.0100, L500.2500 ####[facility] [address] [place], [address] RDW SD Normal 35.1-43.9 [facility] Comment on above: Result Comment: Canc elled via OM: Order cancelled - Patient discharged Performed By: #### L 100.0100, L500.2500 ####[facility] [address] [place], [address] WBC Normal 4.4-11.0 [facility] Comment on above: Result Comment: Canc elled via OM: Order cancelled - Patient discharged Performed By: #### L 100.0100, L500.2500 ####[facility] [address] [place], [address] Abdomen Single Viewon 2024 Abdomen Single View Normal [facility] Basic Metabolic Profile (BMP )on 12-23-2024 BUN Normal 4-19 [facility] Comment on above: Result Comment: Canc elled via OM: Order cancelled - Patient discharged Performed By: #### L 500.2500, L100.0100 ####[facility] [address] [place], [address] BUN/CRE Normal 10-20 [facility] Comment on above: Result Comment: Canc elled via OM: Order cancelled - Patient discharged Performed By: #### L 500.2500, L100.0100 ####[facility] [address] [place], [address] Calcium Normal 7.6-11.0 [facility] Comment on above: Result Comment: Canc elled via OM: Order cancelled - Patient discharged Performed By: #### L 500.2500, L100.0100 ####[facility] [address] [place], [address] CL Normal 98-108 [facility] Comment on above: Result Comment: Canc elled via OM: Order cancelled - Patient discharged Performed By: #### L 500.2500, L100.0100 ####[facility] [address] [place], [address] CO2 Normal 21.0-32.0 [facility] Comment on above: Result Comment: Canc elled via OM: Order cancelled - Patient discharged Performed By: #### L 500.2500, L100.0100 ####[facility] [address] [place], [address] CREAT,SERUM Normal 0.70-1.20 [facility] Comment on above: Result Comment: Canc elled via OM: Order cancelled - Patient discharged Performed By: #### L 500.2500, L100.0100 ####[facility] [address] [place], [address] eGFR Normal >60 [facility] Comment on above: Result Comment: Canc elled via OM: Order cancelled - Patient discharged Performed By: #### L 500.2500, L100.0100 ####[facility] [address] [place], [address] GAP Normal 5-15 [facility] Comment on above: Result Comment: Canc elled via OM: Order cancelled - Patient discharged Performed By: #### L 500.2500, L100.0100 ####[place] [facility] [address] [place], [address] GLU Normal 70-99 [facility] Comment on above: Result Comment: Canc elled via OM: Order cancelled - Patient discharged Performed By: #### L 500.2500, L100.0100 ####[facility] [address] [place], [address] Potassium Normal 3.3-5.1 [facility] Comment on above: Result Comment: Canc elled via OM: Order cancelled - Patient discharged Performed By: #### L 500.2500, L100.0100 ####[facility] [address] [place], [address] Basic Metabolic Profile (BMP) Normal 133-145 [facility] Comment on above: Result Comment: Canc elled via OM: Order cancelled - Patient discharged Performed By: #### L 500.2500, L100.0100 ####[facility] [address] [place], [address] CBC W/Diff, Automatedon 06-0 9-2024 Absolute Neut Normal 2.0-7.7 [facility] Comment on above: Result Comment: Canc elled via OM: Order cancelled - Patient discharged Performed By: #### L 500.2500, L100.0100 ####[facility] [address] [place], [address] HCT Normal 37-47 [facility] Comment on above: Result Comment: Canc elled via OM: Order cancelled - Patient discharged Performed By: #### L 500.2500, L100.0100 ####[facility] [address] [place], [address] HGB Normal 12.0-15.0 [facility] Comment on above: Result Comment: Canc elled via OM: Order cancelled - Patient discharged Performed By: #### L 500.2500, L100.0100 ####[facility] [address] [place], [address] MCH Normal 27.0-32.0 [facility] Comment on above: Result Comment: Canc elled via OM: Order cancelled - Patient discharged Performed By: #### L 500.2500, L100.0100 ####[facility] [address] [place], [address] MCHC Normal 32-36 [facility] Comment on above: Result Comment: Canc elled via OM: Order cancelled - Patient discharged Performed By: #### L 500.2500, L100.0100 ####[facility] [address] [place], [address] MCV Normal 81-99 [facility] Comment on above: Result Comment: Canc elled via OM: Order cancelled - Patient discharged Performed By: #### L 500.2500, L100.0100 ####[facility] [address] [place], [address] NEUT% Normal 47-70 [facility] Comment on above: Result Comment: Canc elled via OM: Order cancelled - Patient discharged Performed By: #### L 500.2500, L100.0100 ####[facility] [address] [place], [address] PLT Normal 150-450 [facility] Comment on above: Result Comment: Canc elled via OM: Order cancelled - Patient discharged Performed By: #### L 500.2500, L100.0100 ####[facility] [address] [place], [address] RBC Normal 4.2-5.4 [facility] Comment on above: Result Comment: Canc elled via OM: Order cancelled - Patient discharged Performed By: #### L 500.2500, L100.0100 ####[facility] [address] [place], [address] RDW CV Normal 11.6-14.6 [facility] Comment on above: Result Comment: Canc elled via OM: Order cancelled - Patient discharged Performed By: #### L 500.2500, L100.0100 ####[facility] [address] [place], [address] RDW SD Normal 35.1-43.9 [facility] Comment on above: Result Comment: Canc elled via OM: Order cancelled - Patient discharged Performed By: #### L 500.2500, L100.0100 ####[facility] [address] [place], [address] WBC Normal 4.4-11.0 [facility] Comment on above: Result Comment: Canc elled via OM: Order cancelled - Patient discharged Performed By: #### L 500.2500, L100.0100 ####[facility] [address] [place], [address] Basic Metabolic Profile (BMP )on 12-22-2024 BUN Normal 4-19 [facility] Comment on above: Result Comment: Canc elled via OM: Order cancelled - Patient discharged Performed By: #### L 100.0100, L500.2500 ####[facility] [address] [place], [address] BUN/CRE Normal 10-20 [facility] Comment on above: Result Comment: Canc elled via OM: Order cancelled - Patient discharged Performed By: #### L 100.0100, L500.2500 ####[facility] [address] [place], [address] Calcium Normal 7.6-11.0 [facility] Comment on above: Result Comment: Canc elled via OM: Order cancelled - Patient discharged Performed By: #### L 100.0100, L500.2500 ####[facility] [address] [place], [address] CL Normal 98-108 [facility] Comment on above: Result Comment: Canc elled via OM: Order cancelled - Patient discharged Performed By: #### L 100.0100, L500.2500 ####[facility] [address] [place], [address] CO2 Normal 21.0-32.0 [facility] Comment on above: Result Comment: Canc elled via OM: Order cancelled - Patient discharged Performed By: #### L 100.0100, L500.2500 ####[facility] [address] [place], [address] CREAT,SERUM Normal 0.70-1.20 [facility] Comment on above: Result Comment: Canc elled via OM: Order cancelled - Patient discharged Performed By: #### L 100.0100, L500.2500 ####[facility] [address] [place], [address] eGFR Normal >60 [facility] Comment on above: Result Comment: Canc elled via OM: Order cancelled - Patient discharged Performed By: #### L 100.0100, L500.2500 ####[facility] [address] [place], [address] GAP Normal 5-15 [facility] Comment on above: Result Comment: Canc elled via OM: Order cancelled - Patient discharged Performed By: #### L 100.0100, L500.2500 ####[facility] [address] [place], [address] GLU Normal 70-99 [facility] Comment on above: Result Comment: Canc elled via OM: Order cancelled - Patient discharged Performed By: #### L 100.0100, L500.2500 ####[facility] [address] [place], [address] Potassium Normal 3.3-5.1 [facility] Comment on above: Result Comment: Canc elled via OM: Order cancelled - Patient discharged Performed By: #### L 100.0100, L500.2500 ####[facility] [address] [place], [address] Basic Metabolic Profile (BMP) Normal 133-145 [facility] Comment on above: Result Comment: Canc elled via OM: Order cancelled - Patient discharged Performed By: #### L 100.0100, L500.2500 ####[facility] [address] [place], [address] CBC W/Diff, Automatedon 06-0 8-2024 Absolute Neut Normal 2.0-7.7 [facility] Comment on above: Result Comment: Canc elled via OM: Order cancelled - Patient discharged Performed By: #### L 100.0100, L500.2500 ####[facility] [address] [place], [address] HCT Normal 37-47 [facility] Comment on above: Result Comment: Canc elled via OM: Order cancelled - Patient discharged Performed By: #### L 100.0100, L500.2500 ####[facility] [address] [place], [address] HGB Normal 12.0-15.0 [facility] Comment on above: Result Comment: Canc elled via OM: Order cancelled - Patient discharged Performed By: #### L 100.0100, L500.2500 ####[facility] [address] [place], [address] MCH Normal 27.0-32.0 [facility] Comment on above: Result Comment: Canc elled via OM: Order cancelled - Patient discharged Performed By: #### L 100.0100, L500.2500 ####[facility] [address] [place], [address] MCHC Normal 32-36 [facility] Comment on above: Result Comment: Canc elled via OM: Order cancelled - Patient discharged Performed By: #### L 100.0100, L500.2500 ####[facility] [address] [place], [address] MCV Normal 81-99 [facility] Comment on above: Result Comment: Canc elled via OM: Order cancelled - Patient discharged Performed By: #### L 100.0100, L500.2500 ####[facility] [address] [place], [address] NEUT% Normal 47-70 [facility] Comment on above: Result Comment: Canc elled via OM: Order cancelled - Patient discharged Performed By: #### L 100.0100, L500.2500 ####[facility] [address] [place], [address] PLT Normal 150-450 [facility] Comment on above: Result Comment: Canc elled via OM: Order cancelled - Patient discharged Performed By: #### L 100.0100, L500.2500 ####[facility] [address] [place], [address] RBC Normal 4.2-5.4 [facility] Comment on above: Result Comment: Canc elled via OM: Order cancelled - Patient discharged Performed By: #### L 100.0100, L500.2500 ####[facility] [address] [place], [address] RDW CV Normal 11.6-14.6 [facility] Comment on above: Result Comment: Canc elled via OM: Order cancelled - Patient discharged Performed By: #### L 100.0100, L500.2500 ####[facility] [address] [place], [address] RDW SD Normal 35.1-43.9 [facility] Comment on above: Result Comment: Canc elled via OM: Order cancelled - Patient discharged Performed By: #### L 100.0100, L500.2500 ####[facility] [address] [place], [address] WBC Normal 4.4-11.0 [facility] Comment on above: Result Comment: Canc elled via OM: Order cancelled - Patient discharged Performed By: #### L 100.0100, L500.2500 ####[facility] [address] [place], [address] Basic Metabolic Profile (BMP )on 12-21-2024 BUN Normal 4-19 [facility] Comment on above: Result Comment: Canc elled via OM: Order cancelled - Patient discharged Performed By: #### L 100.0100, L500.2500 ####[facility] [address] [place], [address] BUN/CRE Normal 10-20 [facility] Comment on above: Result Comment: Canc elled via OM: Order cancelled - Patient discharged Performed By: #### L 100.0100, L500.2500 ####[facility] [address] [place], [address] Calcium Normal 7.6-11.0 [facility] Comment on above: Result Comment: Canc elled via OM: Order cancelled - Patient discharged Performed By: #### L 100.0100, L500.2500 ####[facility] [address] [place], [address] CL Normal 98-108 [facility] Comment on above: Result Comment: Canc elled via OM: Order cancelled - Patient discharged Performed By: #### L 100.0100, L500.2500 ####[facility] [address] [place], [address] CO2 Normal 21.0-32.0 [facility] Comment on above: Result Comment: Canc elled via OM: Order cancelled - Patient discharged Performed By: #### L 100.0100, L500.2500 ####[facility] [address] [place], [address] CREAT,SERUM Normal 0.70-1.20 [facility] Comment on above: Result Comment: Canc elled via OM: Order cancelled - Patient discharged Performed By: #### L 100.0100, L500.2500 ####[facility] [address] [place], [address] eGFR Normal >60 [facility] Comment on above: Result Comment: Canc elled via OM: Order cancelled - Patient discharged Performed By: #### L 100.0100, L500.2500 ####[facility] [address] [place], [address] GAP Normal 5-15 [facility] Comment on above: Result Comment: Canc elled via OM: Order cancelled - Patient discharged Performed By: #### L 100.0100, L500.2500 ####[facility] [address] [place], [address] GLU Normal 70-99 [facility] Comment on above: Result Comment: Canc elled via OM: Order cancelled - Patient discharged Performed By: #### L 100.0100, L500.2500 ####[facility] [address] [place], [address] Potassium Normal 3.3-5.1 [facility] Comment on above: Result Comment: Canc elled via OM: Order cancelled - Patient discharged Performed By: #### L 100.0100, L500.2500 ####[facility] [address] [place], [address] Basic Metabolic Profile (BMP) Normal 133-145 [facility] Comment on above: Result Comment: Canc elled via OM: Order cancelled - Patient discharged Performed By: #### L 100.0100, L500.2500 ####[facility] [address] [place], [address] CBC W/Diff, Automatedon 06-0 Absolute Neut Normal 2.0-7.7 [facility] Comment on above: Result Comment: Canc elled via OM: Order cancelled - Patient discharged Performed By: #### L 100.0100, L500.2500 ####[facility] [address] [place], [address] HCT Normal 37-47 [facility] Comment on above: Result Comment: Canc elled via OM: Order cancelled - Patient discharged Performed By: #### L 100.0100, L500.2500 ####[facility] [address] [place], [address] HGB Normal 12.0-15.0 [facility] Comment on above: Result Comment: Canc elled via OM: Order cancelled - Patient discharged Performed By: #### L 100.0100, L500.2500 ####[facility] [address] [place], [address] MCH Normal 27.0-32.0 [facility] Comment on above: Result Comment: Canc elled via OM: Order cancelled - Patient discharged Performed By: #### L 100.0100, L500.2500 ####[facility] [address] [place], [address] MCHC Normal 32-36 [facility] Comment on above: Result Comment: Canc elled via OM: Order cancelled - Patient discharged Performed By: #### L 100.0100, L500.2500 ####[facility] [address] [place], [address] MCV Normal 81-99 [facility] Comment on above: Result Comment: Canc elled via OM: Order cancelled - Patient discharged Performed By: #### L 100.0100, L500.2500 ####[facility] [address] [place], [address] NEUT% Normal 47-70 [facility] Comment on above: Result Comment: Canc elled via OM: Order cancelled - Patient discharged Performed By: #### L 100.0100, L500.2500 ####[facility] [address] [place], [address] PLT Normal 150-450 [facility] Comment on above: Result Comment: Canc elled via OM: Order cancelled - Patient discharged Performed By: #### L 100.0100, L500.2500 ####[facility] [address] [place], [address] RBC Normal 4.2-5.4 [facility] Comment on above: Result Comment: Canc elled via OM: Order cancelled - Patient discharged Performed By: #### L 100.0100, L500.2500 ####[facility] [address] [place], [address] RDW CV Normal 11.6-14.6 [facility] Comment on above: Result Comment: Canc elled via OM: Order cancelled - Patient discharged Performed By: #### L 100.0100, L500.2500 ####[facility] [address] [place], [address] RDW SD Normal 35.1-43.9 [facility] Comment on above: Result Comment: Canc elled via OM: Order cancelled - Patient discharged Performed By: #### L 100.0100, L500.2500 ####[facility] [address] [place], [address] WBC Normal 4.4-11.0 [facility] Comment on above: Result Comment: Canc elled via OM: Order cancelled - Patient discharged Performed By: #### L 100.0100, L500.2500 ####[facility] [address] [place], [address] Basic Metabolic Profile (BMP )on 12-20-2024 BUN Normal 4-19 [facility] Comment on above: Result Comment: Canc elled via OM: Order cancelled - Patient discharged Performed By: #### L 500.2500, L100.0100 ####[facility] [address] [place], [address] BUN/CRE Normal 10-20 [facility] Comment on above: Result Comment: Canc elled via OM: Order cancelled - Patient discharged Performed By: #### L 500.2500, L100.0100 ####[facility] [address] [place], [address] Calcium Normal 7.6-11.0 [facility] Comment on above: Result Comment: Canc elled via OM: Order cancelled - Patient discharged Performed By: #### L 500.2500, L100.0100 ####[facility] [address] [place], [address] CL Normal 98-108 [facility] Comment on above: Result Comment: Canc elled via OM: Order cancelled - Patient discharged Performed By: #### L 500.2500, L100.0100 ####[facility] [address] [place], [address] CO2 Normal 21.0-32.0 [facility] Comment on above: Result Comment: Canc elled via OM: Order cancelled - Patient discharged Performed By: #### L 500.2500, L100.0100 ####[facility] [address] [place], [address] CREAT,SERUM Normal 0.70-1.20 [facility] Comment on above: Result Comment: Canc elled via OM: Order cancelled - Patient discharged Performed By: #### L 500.2500, L100.0100 ####[facility] [address] [place], [address] eGFR Normal >60 [facility] Comment on above: Result Comment: Canc elled via OM: Order cancelled - Patient discharged Performed By: #### L 500.2500, L100.0100 ####[facility] [address] [place], [address] GAP Normal 5-15 [facility] Comment on above: Result Comment: Canc elled via OM: Order cancelled - Patient discharged Performed By: #### L 500.2500, L100.0100 ####[facility] [address] [place], [address] GLU Normal 70-99 [facility] Comment on above: Result Comment: Canc elled via OM: Order cancelled - Patient discharged Performed By: #### L 500.2500, L100.0100 ####[facility] [address] [place], [address] Potassium Normal 3.3-5.1 [facility] Comment on above: Result Comment: Canc elled via OM: Order cancelled - Patient discharged Performed By: #### L 500.2500, L100.0100 ####[facility] [address] [place], [address] Basic Metabolic Profile (BMP) Normal 133-145 [facility] Comment on above: Result Comment: Canc elled via OM: Order cancelled - Patient discharged Performed By: #### L 500.2500, L100.0100 ####[facility] [address] [place], [address] CBC W/Diff, Automatedon 06-0 Absolute Neut Normal 2.0-7.7 [facility] Comment on above: Result Comment: Canc elled via OM: Order cancelled - Patient discharged Performed By: #### L 500.2500, L100.0100 ####[facility] [address] [place], [address] HCT Normal 37-47 [facility] Comment on above: Result Comment: Canc elled via OM: Order cancelled - Patient discharged Performed By: #### L 500.2500, L100.0100 ####[facility] [address] [place], [address] HGB Normal 12.0-15.0 [facility] Comment on above: Result Comment: Canc elled via OM: Order cancelled - Patient discharged Performed By: #### L 500.2500, L100.0100 ####[facility] [address] [place], [address] MCH Normal 27.0-32.0 [facility] Comment on above: Result Comment: Canc elled via OM: Order cancelled - Patient discharged Performed By: #### L 500.2500, L100.0100 ####[facility] [address] [place], [address] MCHC Normal 32-36 [facility] Comment on above: Result Comment: Canc elled via OM: Order cancelled - Patient discharged Performed By: #### L 500.2500, L100.0100 ####[facility] [address] [place], [address] MCV Normal 81-99 [facility] Comment on above: Result Comment: Canc elled via OM: Order cancelled - Patient discharged Performed By: #### L 500.2500, L100.0100 ####[facility] [address] [place], [address] NEUT% Normal 47-70 [facility] Comment on above: Result Comment: Canc elled via OM: Order cancelled - Patient discharged Performed By: #### L 500.2500, L100.0100 ####[facility] [address] [place], [address] PLT Normal 150-450 [facility] Comment on above: Result Comment: Canc elled via OM: Order cancelled - Patient discharged Performed By: #### L 500.2500, L100.0100 ####[facility] [address] [place], [address] RBC Normal 4.2-5.4 [facility] Comment on above: Result Comment: Canc elled via OM: Order cancelled - Patient discharged Performed By: #### L 500.2500, L100.0100 ####[facility] [address] [place], [address] RDW CV Normal 11.6-14.6 [facility] Comment on above: Result Comment: Canc elled via OM: Order cancelled - Patient discharged Performed By: #### L 500.2500, L100.0100 ####[facility] [address] [place], [address] RDW SD Normal 35.1-43.9 [facility] Comment on above: Result Comment: Canc elled via OM: Order cancelled - Patient discharged Performed By: #### L 500.2500, L100.0100 ####[facility] [address] [place], [address] WBC Normal 4.4-11.0 [facility] Comment on above: Result Comment: Canc elled via OM: Order cancelled - Patient discharged Performed By: #### L 500.2500, L100.0100 ####[facility] [address] [place], [address] Urine Cultureon 12-20-2024 URC Normal [facility] Comment on above: Performed By: #### M 100.2200 ####[facility] [address] [place], [address] Absolute lymphocyte countOrd ered By: Berkley Shukla on 12-19-2024 Lymphocytes Auto (Unsp spec) [#/Vol] 2.07 10*3/uL 0.83-4.51 [facility] Absolute neutrophil countOrd ered By: Berkley Shukla on 12-19-2024 Neutrophils (Bld) [#/Vol] 3.7 10*3/uL 2.0-7.7 [facility] Anion gap in Serum or Plasma Ordered By: Berkley Shukla on 12-19-2024 Anion gap [Moles/Vol] 9 mmol/L 5-15 [facility] Automated lymphocyte count a s percentage of total leukocytesOrdered By: Berkley Shukla on 12-19-2024 Lymphocytes/100 WBC Auto (Unsp spec) 29.9 % 19-41 [facility] BUN/creatinine ratioOrdered By: Berkley Shukla on 12-19-2024 Urea nitrogen/Creatinine [Mass ratio] 27.8 mg/mg High 10- [facility] Basic Metabolic Profile (BMP )on 12-19-2024 BUN/CRE 27.8 RATIO High - [facility] Comment on above: Performed By: #### L 100.0100, L500.2500 ####[facility] [address] [place], [address] Calcium [Mass/Vol] 7.9 mg/dL Normal 7.6-11.0 [facility] Comment on above: Performed By: #### L 100.0100, L500.2500 ####[facility] [address] [place], [address] Chloride [Moles/Vol] 104 mmol/L Normal 98-108 [facility] Comment on above: Performed By: #### L 100.0100, L500.2500 ####[facility] [address] [place], [address] CO2 [Moles/Vol] 23.0 mmol/L Normal 21.0-32.0 [facility] Comment on above: Performed By: #### L 100.0100, L500.2500 ####[facility] [address] [place], [address] Creatinine [Mass/Vol] 0.79 mg/dL Normal 0.70-1.20 [facility] Comment on above: Performed By: #### L 100.0100, L500.2500 ####[facility] [address] [place], [address] ECRCL 48.79 ml/min Low 50-250 [facility] Comment on above: Performed By: #### L 100.0100, L500.2500 ####[facility] [address] [place], [address] GAP 9 Normal 5-15 [facility] Comment on above: Performed By: #### L 100.0100, L500.2500 ####[facility] [address] [place], [address] GFR/1.73 sq M.predicted among non-blacks MDRD (S/P/Bld) [Vol rate/Area] 75 mL/min/{1.73_m2} Normal >60 [facility] Comment on above: Result Comment: mL/m in/1.73m2 CKD-EPI Creatinine Equation (2020) Performed By: #### L 100.0100, L500.2500 ####[facility] [address] [place], [address] Glucose [Mass/Vol] 82 mg/dL Normal 70-99 [facility] Comment on above: Performed By: #### L 100.0100, L500.2500 ####[facility] [address] [place], [address] Potassium [Moles/Vol] 3.7 mmol/L Normal 3.3-5.1 [facility] Comment on above: Performed By: #### L 100.0100, L500.2500 ####[facility] [address] [place], [address] Sodium [Moles/Vol] 136 mmol/L Normal 133-145 [facility] Comment on above: Performed By: #### L 100.0100, L500.2500 ####[facility] [address] [place], [address] Urea nitrogen [Mass/Vol] 22 mg/dL High 4-19 [facility] Comment on above: Performed By: #### L 100.0100, L500.2500 ####[facility] [address] [place], [address] Basophil percentageOrdered B y: Berkley Shukla on 12-19-2024 Basophils/100 WBC (Bld) 0.6 % 0-1 [facility] CBC W/Diff, Automatedon Absolute Lymph 2.07 X10 3/uL Normal 0.83-4.51 [facility] Comment on above: Performed By: #### L 100.0100, L500.2500 ####[facility] [address] [place], [address] Absolute Neut 3.7 X10 3/uL Normal 2.0-7.7 [facility] Comment on above: Performed By: #### L 100.0100, L500.2500 ####[facility] [address] [place], [address] Basophils/100 WBC (Bld) 0.6 % Normal 0-1 [facility] Comment on above: Performed By: #### L 100.0100, L500.2500 ####[facility] [address] [place], [address] Eosinophils/100 WBC (Bld) 5.8 % High 0-5 [facility] Comment on above: Performed By: #### L 100.0100, L500.2500 ####[facility] [address] [place], [address] Erythrocyte distribution width (RBC) [Ratio] 13.0 % Normal 11.6-14.6 [facility] Comment on above: Performed By: #### L 100.0100, L500.2500 ####[facility] [address] [place], [address] Hematocrit (Bld) [Volume fraction] 31.4 % Low 37-47 [facility] Comment on above: Performed By: #### L 100.0100, L500.2500 ####[facility] [address] [place], [address] Hemoglobin (Bld) [Mass/Vol] 10.6 g/dL Low 12.0-15. 0 [facility] Comment on above: Performed By: #### L 100.0100, L500.2500 ####[facility] [address] [place], [address] IG% 0.400 Normal 0.0-0.9 [facility] Comment on above: Result Comment: IG% - Immature Granulocytes (promyelocytes, myelocytes andmetamyelocytes) > 1% indicates that a LEFT SHIFT is Present. Performed By: #### L 100.0100, L500.2500 ####[facility] [address] [place], [address] Lymphocytes/100 WBC (Bld) 29.9 % Normal 19-41 [facility] Comment on above: Performed By: #### L 100.0100, L500.2500 ####[facility] [address] [place], [address] MCH (RBC) [Entitic mass] 31.3 pg Normal 27.0-32.0 [facility] Comment on above: Performed By: #### L 100.0100, L500.2500 ####[facility] [address] [place], [address] MCHC (RBC) [Mass/Vol] 33.8 g/dL Normal 32-36 [facility] Comment on above: Performed By: #### L 100.0100, L500.2500 ####[facility] [address] [place], [address] MCV (RBC) [Entitic vol] 92.6 fL Normal 81-99 [facility] Comment on above: Performed By: #### L 100.0100, L500.2500 ####[facility] [address] [place], [address] Monocytes/100 WBC (Bld) 9.8 % Normal 0-10 [facility] Comment on above: Performed By: #### L 100.0100, L500.2500 ####[facility] [address] [place], [address] Neutrophils/100 WBC (Bld) 53.5 % Normal 47-70 [facility] Comment on above: Performed By: #### L 100.0100, L500.2500 ####[facility] [address] [place], [address] Nucleated RBC (Bld) [#/Vol] 0 10*3/uL Normal 0-5 [facility] Comment on above: Performed By: #### L 100.0100, L500.2500 ####[facility] [address] [place], [address] Platelet mean volume (Bld) [Entitic vol] 9.0 fL Normal 6.2-12.0 [facility] Comment on above: Performed By: #### L 100.0100, L500.2500 ####[facility] [address] [place], [address] Platelets (Bld) [#/Vol] 295 10*3/uL Normal 150-450 [facility] Comment on above: Performed By: #### L 100.0100, L500.2500 ####[facility] [address] [place], [address] RBC (Bld) [#/Vol] 3.39 10*6/uL Low 4.2-5.4 [facility] Comment on above: Performed By: #### L 100.0100, L500.2500 ####[facility] [address] [place], [address] RDW SD 44.1 fl High 35.1-43.9 [facility] Comment on above: Performed By: #### L 100.0100, L500.2500 ####[facility] [address] [place], [address] WBC (Bld) [#/Vol] 6.9 10*3/uL Normal 4.4-11.0 [facility] Comment on above: Performed By: #### L 100.0100, L500.2500 ####[facility] [address] [place], [address] Carbon dioxide, total [Moles /volume] in Central venous bloodOrdered By: Berkley Shukla on 12-19-2024 CO2 [Moles/Vol] 23.0 mmol/L 21.0-32.0 [facility] Chloride assayOrdered By: Na na Gayla on 12-19-2024 Chloride [Moles/Vol] 104 mmol/L 98-108 [facility] Discharge Instructionon 06-0 Discharge Instruction Normal [facility] Eosinophil percentageOrdered By: Berkley Shukla on 12-19-2024 Eosinophils/100 WBC (Bld) 5.8 % High 0-5 [facility] Erythrocyte distribution wid th ratioOrdered By: Berkley Shukla on 12-19-2024 Erythrocyte distribution width (RBC) [Ratio] 13.0 % 11.6-14.6 [facility] Erythrocyte distribution wid th standard deviationOrdered By: Berkley Shukla on 12-19-2024 Erythrocyte distribution width (RBC) [Ratio] 44.1 fl High 35.1-43.9 [facility] Glomerular filtration rate ( GFR) estimation/1.73 sq m using serum, plasma, or whole bOrdered By: Berkley Shukla on 12-19-2024 GFR/1.73 sq M.predicted among non-blacks MDRD (S/P/Bld) [Vol rate/Area] 75 mL/min/{1.73_m2} >60 [facility] Comment on above: mL/min/1.73m2 CKD-EP I Creatinine Equation (2020) Hematocrit Auto (Bld) [Volum e fraction]Ordered By: Berkley Shukla on 12-19-2024 Hematocrit (Bld) [Volume fraction] 31.4 % Low 37-47 [facility] Hemoglobin measurementOrdere d By: Berkley Shukla on 12-19-2024 Hemoglobin (Bld) [Mass/Vol] 10.6 g/dL Low 12.0-15. 0 [facility] Immature granulocytes/100 WB C Auto (Bld)Ordered By: Berkley Shukla on 12-19-2024 Immature granulocytes/100 WBC (Bld) 0.400 % 0.0-0.9 [facility] Comment on above: IG% - Immature Granu locytes (promyelocytes, myelocytes and metamyelocytes) > 1% indicates that a LEFT SHIFT is Present. MCV (mean corpuscular volume ) determinationOrdered By: Berkley Shukla on 12-19-2024 MCV (RBC) [Entitic vol] 92.6 fL 81-99 [facility] Mean corpuscular hemoglobin (MCH) determinationOrdered By: Berkley Shukla on 12-19-2024 MCH (RBC) [Entitic mass] 31.3 pg 27.0-32.0 [facility] Mean corpuscular hemoglobin concentration (MCHC) determinationOrdered By: Berkley Shukla on 12-19-2024 MCHC (RBC) [Mass/Vol] 33.8 g/dL 32-36 [facility] Mean platelet volume determi nationOrdered By: Berkley Shukla on 12-19-2024 Platelet mean volume (Bld) [Entitic vol] 9.0 fL 6.2-12.0 [facility] Monocyte percentageOrdered B y: Berkley Shukla on 12-19-2024 Monocytes/100 WBC (Bld) 9.8 % 0-10 [facility] Neutrophil percentageOrdered By: Berkley Shukla on 12-19-2024 Neutrophils/100 WBC (Bld) 53.5 % 47-70 [facility] Nucleated red blood cell per centageOrdered By: Berkley Shukla on 12-19-2024 Nucleated RBC/100 WBC (Bld) [Ratio] 0 % 0-5 [facility] Platelet countOrdered By: Brooke Shukla on 12-19-2024 Platelets (Bld) [#/Vol] 295 10*3/uL 150-450 [facility] Potassium measurement (mass/ volume)Ordered By: Berkley Shukla on 12-19-2024 Potassium (Unsp spec) [Mass/Vol] 3.7 mmol/L 3.3-5.1 [facility] RBC Auto (Bld) [#/Vol]Ordere d By: Berkley Shukla on 12-19-2024 RBC (Bld) [#/Vol] 3.39 10*6/uL Low 4.2-5.4 [facility] Serum creatinine measurement (mass/volume)Ordered By: Berkley Shukla on 12-19-2024 Creatinine [Mass/Vol] 0.79 mg/dL 0.70-1.20 [facility] Serum glucose measurement (m ass/volume)Ordered By: Berkley Shukla on 12-19-2024 Glucose [Mass/Vol] 82 mg/dL 70-99 [facility] Serum or plasma calcium valeri urement (mass/volume)Ordered By: Berkley Shukla on 12-19-2024 Calcium [Mass/Vol] 7.9 mg/dL 7.6-11.0 [facility] Serum or plasma urea nitroge n measurement (mass/volume)Ordered By: Berkley Shukla on 12-19-2024 Urea nitrogen [Mass/Vol] 22 mg/dL High 4-19 [facility] Sodium levelOrdered By: Berkley Shukla on 12-19-2024 Sodium [Moles/Vol] 136 mmol/L 133-145 [facility] White blood cell (WBC) count Ordered By: Berkley Shukla on 12-19-2024 WBC (Bld) [#/Vol] 6.9 10*3/uL 4.4-11.0 [facility] Bilirubin, totalOrdered By: Ale Newton on 12-18-2024 Bilirubin [Mass/Vol] 0.53 mg/dL 0.00-1.30 [facility] CBC W/Diff, Automatedon Absolute Lymph 1.56 X10 3/uL Normal 0.83-4.51 [facility] Comment on above: Performed By: #### L 500.4050, L100.0100 ####[facility] [address] [place], [address] Absolute Neut 8.5 X10 3/uL High 2.0-7.7 [facility] Comment on above: Performed By: #### L 500.4050, L100.0100 ####[facility] [address] [place], [address] Basophils/100 WBC (Bld) 0.4 % Normal 0-1 [facility] Comment on above: Performed By: #### L 500.4050, L100.0100 ####[facility] [address] [place], [address] Eosinophils/100 WBC (Bld) 0.2 % Normal 0-5 [facility] Comment on above: Performed By: #### L 500.4050, L100.0100 ####[facility] [address] [place], [address] Erythrocyte distribution width (RBC) [Ratio] 12.9 % Normal 11.6-14.6 [facility] Comment on above: Performed By: #### L 500.4050, L100.0100 ####[facility] [address] [place], [address] Hematocrit (Bld) [Volume fraction] 37.3 % Normal 37-47 [facility] Comment on above: Performed By: #### L 500.4050, L100.0100 ####[facility] [address] [place], [address] Hemoglobin (Bld) [Mass/Vol] 12.8 g/dL Normal 12.0-15. 0 [facility] Comment on above: Performed By: #### L 500.4050, L100.0100 ####[facility] [address] [place], [address] IG% 0.500 Normal 0.0-0.9 [facility] Comment on above: Result Comment: IG% - Immature Granulocytes (promyelocytes, myelocytes andmetamyelocytes) > 1% indicates that a LEFT SHIFT is Present. Performed By: #### L 500.4050, L100.0100 ####[facility] [address] [place], [address] Lymphocytes/100 WBC (Bld) 13.9 % Low 19-41 [facility] Comment on above: Performed By: #### L 500.4050, L100.0100 ####[facility] [address] [place], [address] MCH (RBC) [Entitic mass] 31.4 pg Normal 27.0-32.0 [facility] Comment on above: Performed By: #### L 500.4050, L100.0100 ####[facility] [address] [place], [address] MCHC (RBC) [Mass/Vol] 34.3 g/dL Normal 32-36 [facility] Comment on above: Performed By: #### L 500.4050, L100.0100 ####[facility] [address] [place], [address] MCV (RBC) [Entitic vol] 91.6 fL Normal 81-99 [facility] Comment on above: Performed By: #### L 500.4050, L100.0100 ####[facility] [address] [place], [address] Monocytes/100 WBC (Bld) 9.3 % Normal 0-10 [facility] Comment on above: Performed By: #### L 500.4050, L100.0100 ####[facility] [address] [place], [address] Neutrophils/100 WBC (Bld) 75.7 % High 47-70 [facility] Comment on above: Performed By: #### L 500.4050, L100.0100 ####[facility] [address] [place], [address] Nucleated RBC (Bld) [#/Vol] 0 10*3/uL Normal 0-5 [facility] Comment on above: Performed By: #### L 500.4050, L100.0100 ####[facility] [address] [place], [address] Platelet mean volume (Bld) [Entitic vol] 8.7 fL Normal 6.2-12.0 [facility] Comment on above: Performed By: #### L 500.4050, L100.0100 ####[facility] [address] [place], [address] Platelets (Bld) [#/Vol] 347 10*3/uL Normal 150-450 [facility] Comment on above: Performed By: #### L 500.4050, L100.0100 ####[facility] [address] [place], [address] RBC (Bld) [#/Vol] 4.07 10*6/uL Low 4.2-5.4 [facility] Comment on above: Performed By: #### L 500.4050, L100.0100 ####[facility] [address] [place], [address] RDW SD 43.1 fl Normal 35.1-43.9 [facility] Comment on above: Performed By: #### L 500.4050, L100.0100 ####[facility] [address] [place], [address] WBC (Bld) [#/Vol] 11.2 10*3/uL High 4.4-11.0 [facility] Comment on above: Performed By: #### L 500.4050, L100.0100 ####[facility] [address] [place], [address] Comprehensive Metabolic Prof [facility] 12-18-2024 Albumin [Mass/Vol] 3.6 g/dL Normal 3.4-4.8 [facility] Comment on above: Performed By: #### L 500.4050, L100.0100 ####[facility] [address] [place], [address] Albumin/Globulin [Mass ratio] 1.4 {ratio} Normal 0.9-2.4 [facility] Comment on above: Performed By: #### L 500.4050, L100.0100 ####[facility] [address] [place], [address] ALK PHOS 171 U/L High 35-104 [facility] Comment on above: Performed By: #### L 500.4050, L100.0100 ####[facility] [address] [place], [address] ALT [Catalytic activity/Vol] 31 U/L Normal <=34 [facility] Comment on above: Performed By: #### L 500.4050, L100.0100 ####[facility] [address] [place], [address] AST [Catalytic activity/Vol] 31 U/L Normal <=31 [facility] Comment on above: Performed By: #### L 500.4050, L100.0100 ####[facility] [address] [place], [address] Bilirubin [Mass/Vol] 0.53 mg/dL Normal 0.00-1.30 [facility] Comment on above: Performed By: #### L 500.4050, L100.0100 ####[facility] [address] [place], [address] BUN/CRE 24.4 RATIO High 10-20 [facility] Comment on above: Performed By: #### L 500.4050, L100.0100 ####[facility] [address] [place], [address] Calcium [Mass/Vol] 8.8 mg/dL Normal 7.6-11.0 [facility] Comment on above: Performed By: #### L 500.4050, L100.0100 ####[facility] [address] [place], [address] Chloride [Moles/Vol] 103 mmol/L Normal 98-108 [facility] Comment on above: Performed By: #### L 500.4050, L100.0100 ####[facility] [address] [place], [address] CO2 [Moles/Vol] 23.3 mmol/L Normal 21.0-32.0 [facility] Comment on above: Performed By: #### L 500.4050, L100.0100 ####[facility] [address] [place], [address] Creatinine [Mass/Vol] 0.71 mg/dL Normal 0.70-1.20 [facility] Comment on above: Performed By: #### L 500.4050, L100.0100 ####[facility] [address] [place], [address] ECRCL 48.79 ml/min Low 50-250 [facility] Comment on above: Performed By: #### L 500.4050, L100.0100 ####[facility] [address] [place], [address] GAP 11 Normal 5-15 [facility] Comment on above: Performed By: #### L 500.4050, L100.0100 ####[facility] [address] [place], [address] GFR/1.73 sq M.predicted among non-blacks MDRD (S/P/Bld) [Vol rate/Area] 84 mL/min/{1.73_m2} Normal >60 [facility] Comment on above: Result Comment: mL/m in/1.73m2 CKD-EPI Creatinine Equation (2020) Performed By: #### L 500.4050, L100.0100 ####[facility] [address] [place], [address] Globulin (S) [Mass/Vol] 2.6 g/dL Normal 2.2-4.2 [facility] Comment on above: Performed By: #### L 500.4050, L100.0100 ####[facility] [address] [place], [address] Glucose [Mass/Vol] 112 mg/dL High 70-99 [facility] Comment on above: Performed By: #### L 500.4050, L100.0100 ####[facility] [address] [place], [address] Potassium [Moles/Vol] 3.8 mmol/L Normal 3.3-5.1 [facility] Comment on above: Performed By: #### L 500.4050, L100.0100 ####[facility] [address] [place], [address] Sodium [Moles/Vol] 137 mmol/L Normal 133-145 [facility] Comment on above: Performed By: #### L 500.4050, L100.0100 ####[facility] [address] [place], [address] T PROT 6.2 g/dL Normal 5.9-8.4 [facility] Comment on above: Performed By: #### L 500.4050, L100.0100 ####[facility] [address] [place], [address] Urea nitrogen [Mass/Vol] 17 mg/dL Normal 4-19 [facility] Comment on above: Performed By: #### L 500.4050, L100.0100 ####[facility] [address] [place], [address] Laboratory - Chemistry and C hemistry - challengeOrdered By: Ale Newton on 12-18-2024 AST [Catalytic activity/Vol] 31 U/L <32 [facility] Serum globulin measurementOr dered By: Ale Newton on 12-18-2024 Globulin (S) [Mass/Vol] 2.6 g/dL 2.2-4.2 [facility] Serum or plasma alanine vasquez otransferase (ALT) measurementOrdered By: Ale Newton on 12-18-2024 ALT [Catalytic activity/Vol] 31 U/L <35 [facility] Serum or plasma albumin valeri urement (mass/volume)Ordered By: Ale Newton on 12-18-2024 Albumin [Mass/Vol] 3.6 g/dL 3.4-4.8 [facility] Serum or plasma albumin/glob ulin mass ratioOrdered By: Ale Newton on 12-18-2024 Albumin/Globulin [Mass ratio] 1.4 {ratio} 0.9-2.4 [facility] Serum or plasma alkaline darrell sphatase measurementOrdered By: Ale Newton on 12-18-2024 ALP [Catalytic activity/Vol] 171 U/L High 35-104 [facility] Total proteinOrdered By: Wendy Newton on 12-18-2024 Protein [Mass/Vol] 6.2 g/dL 5.9-8.4 [facility] 12 Lead EKGon 12-17-2024 12 Lead EKG Normal [facility] Abdomen/Pelvis W IV Cont ONL Yon 12-17-2024 Abdomen/Pelvis W IV Cont ONLY Normal [facility] Absolute lymphocyte countOrd ered By: Albert Julian on 12-17-2024 Lymphocytes Auto (Unsp spec) [#/Vol] 1.64 10*3/uL 0.83-4.51 [facility] Absolute neutrophil countOrd ered By: Albert Julian on 12-17-2024 Neutrophils (Bld) [#/Vol] 12.2 10*3/uL High 2.0-7.7 [facility] Anion gap in Serum or Plasma Ordered By: Albert Julian on 12-17-2024 Anion gap [Moles/Vol] 14 mmol/L 5-15 [facility] Automated lymphocyte count a s percentage of total leukocytesOrdered By: Albert Julian on 12-17-2024 Lymphocytes/100 WBC Auto (Unsp spec) 11.0 % Low 19-41 [facility] BUN/creatinine ratioOrdered By: Albertindy Julian on 12-17-2024 Urea nitrogen/Creatinine [Mass ratio] 23.2 mg/mg High 10-20 [facility] Basophil percentageOrdered B y: Albert Julian on 12-17-2024 Basophils/100 WBC (Bld) 0.5 % 0-1 [facility] Bilirubin Test strip Ql (U)O rdered By: Albert Julian on 12-17-2024 Bilirubin Ql (U) Negative Negative [facility] Bilirubin, totalOrdered By: Albert Julian on 12-17-2024 Bilirubin [Mass/Vol] 0.70 mg/dL 0.00-1.30 [facility] CBC W/Diff, Automatedon 0 Absolute Lymph 1.64 X10 3/uL Normal 0.83-4.51 [facility] Comment on above: Performed By: #### L 503.6005, L100.0100, L500.4050, L501.2450 ####[facility] [address] [place], [address] Absolute Neut 12.2 X10 3/uL High 2.0-7.7 [facility] Comment on above: Performed By: #### L 503.6005, L100.0100, L500.4050, L501.2450 ####[facility] [address] [place], [address] Basophils/100 WBC (Bld) 0.5 % Normal 0-1 [facility] Comment on above: Performed By: #### L 503.6005, L100.0100, L500.4050, L501.2450 ####[facility] [address] [place], [address] Eosinophils/100 WBC (Bld) 0.7 % Normal 0-5 [facility] Comment on above: Performed By: #### L 503.6005, L100.0100, L500.4050, L501.2450 ####[facility] [address] [place], [address] Erythrocyte distribution width (RBC) [Ratio] 12.9 % Normal 11.6-14.6 [facility] Comment on above: Performed By: #### L 503.6005, L100.0100, L500.4050, L501.2450 ####[facility] [address] [place], [address] Hematocrit (Bld) [Volume fraction] 39.0 % Normal 37-47 [facility] Comment on above: Performed By: #### L 503.6005, L100.0100, L500.4050, L501.2450 ####[facility] [address] [place], [address] Hemoglobin (Bld) [Mass/Vol] 13.1 g/dL Normal 12.0-15. 0 [facility] Comment on above: Performed By: #### L 503.6005, L100.0100, L500.4050, L501.2450 ####[facility] [address] [place], [address] IG% 0.300 Normal 0.0-0.9 [facility] Comment on above: Result Comment: IG% - Immature Granulocytes (promyelocytes, myelocytes andmetamyelocytes) > 1% indicates that a LEFT SHIFT is Present. Performed By: #### L 503.6005, L100.0100, L500.4050, L501.2450 ####[facility] [address] [place], [address] Lymphocytes/100 WBC (Bld) 11.0 % Low 19-41 [facility] Comment on above: Performed By: #### L 503.6005, L100.0100, L500.4050, L501.2450 ####[facility] [address] [place], [address] MCH (RBC) [Entitic mass] 31.4 pg Normal 27.0-32.0 [facility] Comment on above: Performed By: #### L 503.6005, L100.0100, L500.4050, L501.2450 ####[facility] [address] [place], [address] MCHC (RBC) [Mass/Vol] 33.6 g/dL Normal 32-36 [facility] Comment on above: Performed By: #### L 503.6005, L100.0100, L500.4050, L501.2450 ####[facility] [address] [place], [address] MCV (RBC) [Entitic vol] 93.5 fL Normal 81-99 [facility] Comment on above: Performed By: #### L 503.6005, L100.0100, L500.4050, L501.2450 ####[facility] [address] [place], [address] Monocytes/100 WBC (Bld) 5.6 % Normal 0-10 [facility] Comment on above: Performed By: #### L 503.6005, L100.0100, L500.4050, L501.2450 ####[facility] [address] [place], [address] Neutrophils/100 WBC (Bld) 81.9 % High 47-70 [facility] Comment on above: Performed By: #### L 503.6005, L100.0100, L500.4050, L501.2450 ####[facility] [address] [place], [address] Nucleated RBC (Bld) [#/Vol] 0 10*3/uL Normal 0-5 [facility] Comment on above: Performed By: #### L 503.6005, L100.0100, L500.4050, L501.2450 ####[facility] [address] [place], [address] Platelet mean volume (Bld) [Entitic vol] 9.1 fL Normal 6.2-12.0 [facility] Comment on above: Performed By: #### L 503.6005, L100.0100, L500.4050, L501.2450 ####[facility] [address] [place], [address] Platelets (Bld) [#/Vol] 382 10*3/uL Normal 150-450 [facility] Comment on above: Performed By: #### L 503.6005, L100.0100, L500.4050, L501.2450 ####[facility] [address] [place], [address] RBC (Bld) [#/Vol] 4.17 10*6/uL Low 4.2-5.4 [facility] Comment on above: Performed By: #### L 503.6005, L100.0100, L500.4050, L501.2450 ####[facility] [address] [place], [address] RDW SD 44.2 fl High 35.1-43.9 [facility] Comment on above: Performed By: #### L 503.6005, L100.0100, L500.4050, L501.2450 ####[facility] [address] [place], [address] WBC (Bld) [#/Vol] 14.9 10*3/uL High 4.4-11.0 [facility] Comment on above: Performed By: #### L 503.6005, L100.0100, L500.4050, L501.2450 ####[facility] [address] [place], [address] Carbon dioxide, total [Moles /volume] in Central venous bloodOrdered By: Albert Julian on 12-17-2024 CO2 [Moles/Vol] 22.9 mmol/L 21.0-32.0 [facility] Chloride assayOrdered By: Scott Julian on 12-17-2024 Chloride [Moles/Vol] 98 mmol/L 98-108 [facility] Comprehensive Metabolic Prof ilon 12-17-2024 Albumin [Mass/Vol] 3.9 g/dL Normal 3.4-4.8 [facility] Comment on above: Performed By: #### L 503.6005, L100.0100, L500.4050, L501.2450 ####[facility] [address] [place], [address] Albumin/Globulin [Mass ratio] 1.2 {ratio} Normal 0.9-2.4 [facility] Comment on above: Performed By: #### L 503.6005, L100.0100, L500.4050, L501.2450 ####[facility] [address] [place], [address] ALK PHOS 199 U/L High 35-104 [facility] Comment on above: Performed By: #### L 503.6005, L100.0100, L500.4050, L501.2450 ####[facility] [address] [place], [address] ALT [Catalytic activity/Vol] 39 U/L High <=34 [facility] Comment on above: Performed By: #### L 503.6005, L100.0100, L500.4050, L501.2450 ####[facility] [address] [place], [address] AST [Catalytic activity/Vol] 38 U/L High <=31 [facility] Comment on above: Performed By: #### L 503.6005, L100.0100, L500.4050, L501.2450 ####[facility] [address] [place], [address] Bilirubin [Mass/Vol] 0.70 mg/dL Normal 0.00-1.30 [facility] Comment on above: Performed By: #### L 503.6005, L100.0100, L500.4050, L501.2450 ####[facility] [address] [place], [address] BUN/CRE 23.2 RATIO High 10-20 [facility] Comment on above: Performed By: #### L 503.6005, L100.0100, L500.4050, L501.2450 ####[facility] [address] [place], [address] Calcium [Mass/Vol] 9.7 mg/dL Normal 7.6-11.0 [facility] Comment on above: Performed By: #### L 503.6005, L100.0100, L500.4050, L501.2450 ####[facility] [address] [place], [address] Chloride [Moles/Vol] 98 mmol/L Normal 98-108 [facility] Comment on above: Performed By: #### L 503.6005, L100.0100, L500.4050, L501.2450 ####[facility] [address] [place], [address] CO2 [Moles/Vol] 22.9 mmol/L Normal 21.0-32.0 [facility] Comment on above: Performed By: #### L 503.6005, L100.0100, L500.4050, L501.2450 ####[facility] [address] [place], [address] Creatinine [Mass/Vol] 0.79 mg/dL Normal 0.70-1.20 [facility] Comment on above: Performed By: #### L 503.6005, L100.0100, L500.4050, L501.2450 ####[facility] [address] [place], [address] ECRCL 44.85 ml/min Low 50-250 [facility] Comment on above: Performed By: #### L 503.6005, L100.0100, L500.4050, L501.2450 ####[facility] [address] [place], [address] GAP 14 Normal 5-15 [facility] Comment on above: Performed By: #### L 503.6005, L100.0100, L500.4050, L501.2450 ####[facility] [address] [place], [address] GFR/1.73 sq M.predicted among non-blacks MDRD (S/P/Bld) [Vol rate/Area] 75 mL/min/{1.73_m2} Normal >60 [facility] Comment on above: Result Comment: mL/m in/1.73m2 CKD-EPI Creatinine Equation (2020) Performed By: #### L 503.6005, L100.0100, L500.4050, L501.2450 ####[facility] [address] [place], [address] Globulin (S) [Mass/Vol] 3.2 g/dL Normal 2.2-4.2 [facility] Comment on above: Performed By: #### L 503.6005, L100.0100, L500.4050, L501.2450 ####[facility] [address] [place], [address] Glucose [Mass/Vol] 110 mg/dL High 70-99 [facility] Comment on above: Performed By: #### L 503.6005, L100.0100, L500.4050, L501.2450 ####[facility] [address] [place], [address] Potassium [Moles/Vol] 3.7 mmol/L Normal 3.3-5.1 [facility] Comment on above: Performed By: #### L 503.6005, L100.0100, L500.4050, L501.2450 ####[facility] [address] [place], [address] Sodium [Moles/Vol] 135 mmol/L Normal 133-145 [facility] Comment on above: Performed By: #### L 503.6005, L100.0100, L500.4050, L501.2450 ####[facility] [address] [place], [address] T PROT 7.0 g/dL Normal 5.9-8.4 [facility] Comment on above: Performed By: #### L 503.6005, L100.0100, L500.4050, L501.2450 ####[facility] [address] [place], [address] Urea nitrogen [Mass/Vol] 18 mg/dL Normal 4-19 [facility] Comment on above: Performed By: #### L 503.6005, L100.0100, L500.4050, L501.2450 ####[facility] [address] [place], [address] Emergency Department Summary on 12-17-2024 Emergency Department Summary Normal [facility] Eosinophil percentageOrdered By: Albert Julian on 12-17-2024 Eosinophils/100 WBC (Bld) 0.7 % 0-5 [facility] Erythrocyte distribution wid th ratioOrdered By: Albert Julian on 12-17-2024 Erythrocyte distribution width (RBC) [Ratio] 12.9 % 11.6-14.6 [facility] Erythrocyte distribution wid th standard deviationOrdered By: Albert Jake Mcdonough on 12-17-2024 Erythrocyte distribution width (RBC) [Ratio] 44.2 fl High 35.1-43.9 [facility] Glomerular filtration rate ( GFR) estimation/1.73 sq m using serum, plasma, or whole bOrdered By: Albert Julian on 12-17-2024 GFR/1.73 sq M.predicted among non-blacks MDRD (S/P/Bld) [Vol rate/Area] 75 mL/min/{1.73_m2} >60 [facility] Comment on above: mL/min/1.73m2 CKD-EP I Creatinine Equation (2020) H AND P Exam - Hospitaliston 12-17-2024 H&P Exam - Hospitalist Normal [facility] Hematocrit Auto (Bld) [Volum e fraction]Ordered By: [facility] 12-[facility]-20[facility] Hematocrit (Bld) [Volume fraction] 39.0 % 37-47 [facility] Hemoglobin measurementOrdere d By: Albert Julian on 12-17-2024 Hemoglobin (Bld) [Mass/Vol] 13.1 g/dL 12.0-15. 0 [facility] Immature granulocytes/100 WB C Auto (Bld)Ordered By: Albert Julian on 12-17-2024 Immature granulocytes/100 WBC (Bld) 0.300 % 0.0-0.9 [facility] Comment on above: IG% - Immature Granu locytes (promyelocytes, myelocytes and metamyelocytes) > 1% indicates that a LEFT SHIFT is Present. Ketones Test strip Ql (U)Ord ered By: Albert Julian on 12-17-2024 Ketones Ql (U) 50 mg/dl High Negative [facility] Laboratory - Chemistry and C hemistry - challengeOrdered By: Albert Julian on 12-17-2024 AST [Catalytic activity/Vol] 38 U/L High <32 [facility] Lactic Acidon 12-17-2024 Lactate [Moles/Vol] mmol/L Normal 0.0-2.0 [facility] Comment on above: Order Comment: Y Performed By: #### L 503.6005, L100.0100, L500.4050, L501.2450 ####[facility] [address] [place], [place], [address] Lactic acid measurementOrder ed By: Albert Julian on 12-17-2024 Lactate [Moles/Vol] mmol/L 0.0-2.0 [facility] Lipaseon 12-17-2024 Lipase [Catalytic activity/Vol] 21 U/L Normal 13-75 [facility] Comment on above: Result Comment: Ivet marshall note:LIPASE revised reference range effective 22.New Lipase methodology. Expected to produce lower valuesthan the previous assay method.NEW Reference Range: 13 - 75 U/L Performed By: #### L 503.6005, L100.0100, L500.4050, L501.2450 ####[facility] [address] [place], [place], [address] Lipase measurementOrdered By : Albert Julian on 12-17-2024 Lipase [Catalytic activity/Vol] 21 U/L 13-75 [facility] Comment on above: Please note:LIPASE r evised reference range effective 22. New Lipase methodology. Expected to produce lower values than the previous assay method. NEW Reference Range: 13 - 75 U/L MCV (mean corpuscular volume ) determinationOrdered By: Albert Julian on 12-17-2024 MCV (RBC) [Entitic vol] 93.5 fL 81-99 [facility] Mean corpuscular hemoglobin (MCH) determinationOrdered By: Albert Julian on 12-17-2024 MCH (RBC) [Entitic mass] 31.4 pg 27.0-32.0 [facility] Mean corpuscular hemoglobin concentration (MCHC) determinationOrdered By: Albert Julian on 12-17-2024 MCHC (RBC) [Mass/Vol] 33.6 g/dL 32-36 [facility] Mean platelet volume determi nationOrdered By: Albert Julian on 12-17-2024 Platelet mean volume (Bld) [Entitic vol] 9.1 fL 6.2-12.0 [facility] Microscopic analysis of urin e for red blood cells (RBC)Ordered By: Albert Julian on 12-17-2024 Microscopic analysis of urine for red blood cells (RBC) 0-5 SEEN /hpf 0-5 [facility] Monocyte percentageOrdered B y: Albert Julian on 12-17-2024 Monocytes/100 WBC (Bld) 5.6 % 0-10 [facility] Mucus LM Ql (Urine sed)Order ed By: Albert Julian on 12-17-2024 Mucus Ql (Urine sed) 0 SEEN /hpf [facility] Neutrophil percentageOrdered By: Albert Julian on 12-17-2024 Neutrophils/100 WBC (Bld) 81.9 % High 47-70 [facility] Nitrite Test strip Ql (U)Ord ered By: Albert Julian on 12-17-2024 Nitrite Ql (U) Positive High Negative [facility] Nucleated red blood cell per centageOrdered By: Albert Julian on 12-17-2024 Nucleated RBC/100 WBC (Bld) [Ratio] 0 % 0-5 [facility] Platelet countOrdered By: Scott Julian on 12-17-2024 Platelets (Bld) [#/Vol] 382 10*3/uL 150-450 [facility] Potassium measurement (mass/ volume)Ordered By: Albert Julian on 12-17-2024 Potassium (Unsp spec) [Mass/Vol] 3.7 mmol/L 3.3-5.1 [facility] Protein Test strip Ql (U)Ord ered By: Albert Julian on 12-17-2024 Protein Ql (U) 30 mg/dl High Negative [facility] RBC Auto (Bld) [#/Vol]Ordere d By: Albert Julian on 12-17-2024 RBC (Bld) [#/Vol] 4.17 10*6/uL Low 4.2-5.4 [facility] Serum creatinine measurement (mass/volume)Ordered By: Albert Julian on 12-17-2024 Creatinine [Mass/Vol] 0.79 mg/dL 0.70-1.20 [facility] Serum globulin measurementOr dered By: Albert Julian on 12-17-2024 Globulin (S) [Mass/Vol] 3.2 g/dL 2.2-4.2 [facility] Serum glucose measurement (m ass/volume)Ordered By: Albert Julian on 12-17-2024 Glucose [Mass/Vol] 110 mg/dL High 70-99 [facility] Serum or plasma alanine vasquez otransferase (ALT) measurementOrdered By: Albert Julian on 12-17-2024 ALT [Catalytic activity/Vol] 39 U/L High <35 [facility] Serum or plasma albumin valeri urement (mass/volume)Ordered By: Albert Mcdonough on 12-17-2024 Albumin [Mass/Vol] 3.9 g/dL 3.4-4.8 [facility] Serum or plasma albumin/glob ulin mass ratioOrdered By: Albert Julian on 12-17-2024 Albumin/Globulin [Mass ratio] 1.2 {ratio} 0.9-2.4 [facility] Serum or plasma alkaline darrell sphatase measurementOrdered By: Albert Julian on 12-17-2024 ALP [Catalytic activity/Vol] 199 U/L High 35-104 [facility] Serum or plasma calcium valeri urement (mass/volume)Ordered By: Albert Mcdonough on 12-17-2024 Calcium [Mass/Vol] 9.7 mg/dL 7.6-11.0 [facility] Serum or plasma urea nitroge n measurement (mass/volume)Ordered By: Albert Julian on 12-17-2024 Urea nitrogen [Mass/Vol] 18 mg/dL 4-19 [facility] Sodium levelOrdered By: Yan Julian on 12-17-2024 Sodium [Moles/Vol] 135 mmol/L 133-145 [facility] Squamous epithelial cells de tection in urine sediment by light microscopyOrdered By: Albert Julian on 12-17-2024 Epithelial cells.squamous LM Ql (Urine sed) 0-5 SEEN /hpf 5-10 [facility] Total proteinOrdered By: Alexus Julian on 12-17-2024 Protein [Mass/Vol] 7.0 g/dL 5.9-8.4 [facility] Urinalysis, Completeon 12-17 BACTERIA 1+ /hpf Normal None Seen [facility] Comment on above: Order Comment: CLEAN CATCH Performed By: #### L 400.0001 ####[facility] [address] [place] [address] EPI,SQUAMOUS 0-5 SEEN Normal 5-10 [facility] Comment on above: Order Comment: CLEAN CATCH Performed By: #### L 400.0001 ####[facility] [address] [facility] [address] RBC 0-5 SEEN Normal 0-5 [facility] Comment on above: Order Comment: CLEAN CATCH Performed By: #### L 400.0001 ####[facility] [address] [facility] [address] WBC >100 SEEN Normal 0-5 [facility] Comment on above: Order Comment: CLEAN CATCH Performed By: #### L 400.0001 ####[facility] [address] [facility] [address] Mucus Ql (Urine sed) 0 SEEN Normal [facility] Comment on above: Order Comment: CLEAN CATCH Performed By: #### L 400.0001 ####[facility] [address] [place] [id number] Urine clarityOrdered By: Alexus Julian on 12-17-2024 Clarity (U) Cloudy Clear [facility] Urine color determinationOrd ered By: Albert Julian on 12-17-2024 Color (U) Yellow Yellow [facility] Urine cultureOrdered By: Alexus Julian on 12-17-2024 Bacteria identified Cx Nom (U) Pseudomonas spp Abnormal [facility] Urine glucose detectionOrder ed By: Albert Julian on 12-17-2024 Glucose Ql (U) Normal mg/dl Normal [facility] Urine leukocyte esterase det ection by dipstickOrdered By: Albert Julian on 12-17-2024 Leukocyte esterase Test strip Ql (U) 500 /ul High Negative [facility] Urine pHOrdered By: Albert Olivarez on 12-17-2024 pH (U) 6.0 [pH] 5.0 - 8.0 [facility] Urine sediment bacteria coun t by microscopy (number/high power field)Ordered By: Albert Julian on 12-17-2024 Bacteria LM.HPF (Urine sed) [#/Area] 1 /[HPF] None Seen [facility] Urine specific gravity measu rementOrdered By: Albert Julian on 12-17-2024 Specific gravity (U) [Rel density] 1.015 1.002-1.030 [facility] Urine urobilinogen measureme ntOrdered By: Albert Julian on 12-17-2024 Urobilinogen Ql (U) 1 mg/dl High Normal [facility] White blood cell (WBC) count Ordered By: Albert Julian on 12-17-2024 WBC (Bld) [#/Vol] 14.9 10*3/uL High 4.4-11.0 [facility] White blood cell countOrdere d By: Albert Julian on 12-17-2024 White blood cell count >100 SEEN /hpf 0-5 [facility] Surgery Visit Reporton 12-16 Surgery Visit Report Normal [facility] Gastroenterology Visit Repor ton 12-12-2024 Gastroenterology Visit Report Normal [facility] Discharge Instructionon 11-14 Discharge Instruction Normal [facility] MR/POSTOP.ANEon 12-02-2024 MR/POSTOP.ANE Normal [facility] MR/IGITGQLC1iy 12-02-2024 MR/POSTOPAN2 Normal [facility] Operative Reporton Operative Report Normal [facility] Surgery Specimen Level IIIon 12-02-2024 Surgery Specimen Level III Normal [facility] Comment on above: Performed By: #### P SUIII ####[facility] [address] [facility] [place], [address] Electrocardiogram reportOrde red By: Lisa Calles on 11-28-2024 EKG study [facility] Cardiovascular Services [address] [place] [address] 12 Lead EKG 11/26/24 1240 MR#: [id number] Acct: [id number] Name: MARGIE FULTON Rep # :[id number] : 1940 84 From: Lisa burgos MD Attending Dr: Dr. Carlos Cano MD Status: PRE [facility] Ordering Dr: Alex Rudolph MD Date: 11/26/24 Location: [facility] Sex: F C Admitted: Test Reason : PREOP Blood Pressure : */* mmHG Vent. Rate : 65 BPM Atrial Rate : 65 BPM P-R Int : 142 ms QRS Dur : 82 ms QT Int : 406 ms P-R-T Axes : 58 41 58 degrees QTcB Int : 422 ms Normal sinus rhythm Normal ECG Confirmed by Lisa Calles ([id number]), supervising editor news reel FRANKLYN MOON ([id number]) on 11/28/2024 10:08:39 AM Referred By: Carlos Cano Confirmed By: Lisa Calles 11/28/24 1008 Date _ Lisa Calles MD CC: Dr. Alex Rudolph MD; Dr. Danielle Paige DO; Dr. Carlos Cano MD ~ Signed [facility] Other Phone: 12 Lead EKGon 11-26-2024 12 Lead EKG Normal [facility] MR/PAT.ANEon 11-26-2024 MR/PAT.ANE Normal [facility] TSH DL <= 0.005 mIU/L QnOrde red By: Alex Rudolph on 11-26-2024 TSH Qn 1.860 uIU/mL 0.300-4.200 [facility] Thyroid Stim Hormone (TSH)on 11-26-2024 TSH 1.860 uIU/mL Normal 0.300-4.200 [facility] Comment on above: Performed By: #### L 501.9520 ####[facility] [address] [place], [place], [id number] Surgery Visit Reporton 11-18 Surgery Visit Report Normal [facility] Gastroenterology Visit Repor ton 11-12-2024 Gastroenterology Visit Report Normal [facility] Abdomen/Pelvis WITH Contrast on 11-11-2024 Abdomen/Pelvis WITH Contrast Normal [facility] LESTER w/ Reflex Mult Confirmon 10-21-2024 LESTER,DIRECT Negative Normal Negative [facility] Comment on above: Result Comment: Perf ormed at: [employer] [address] [id number] Director: Donny Armendariz PhD, Phone: [phone] Performed By: #### L 501.3110, L505.7010, L800.1280, L3300.1200, L500.3400, L3100.5450 ####[facility] [address] [place], [place], [id number] ANCAon 10-21-2024 Atypical pANCA <1:20 Normal Neg:<1:20 [facility] Comment on above: Result Comment: The atypical pANCA pattern has been observed in asignificant percentage of patients with ulcerative colitis,primary sclerosing cholangitis and autoimmune hepatitis.Performed at: [employer] [address] [place], [place] [id number] Director: Donny Armendariz PhD, Phone: [phone] Performed By: #### L 501.6710, L505.7010, L800.1280, L3300.1200, L500.3400, L3100.5450 ####[facility] [address] [place], [place], [phone] Cytoplasmic Ab <1:20 Normal Neg:<1:20 [facility] Comment on above: Performed By: #### L 501.6710, L505.7010, L800.1280, L3300.1200, L500.3400, L3100.5450 ####[facility] [address] [place], [address] Perinuclear Ab. <1:20 Normal Neg:<1:20 [facility] Comment on above: Result Comment: The presence of positive fluorescence exhibiting P-ANCA orC-ANCA patterns alone is not specific for the diagnosis ofWegener's Granulomatosis (WG) or microscopic polyangiitis.Decisions about treatment should not be based solely onANCA IFA results. The [employer] Consensusrecommends follow up testing of positive sera with both MI-3 and MPO-ANCA enzyme immunoassays. As many as 5% serumsamples are positive only by EIA. Ref. AM J Clin Ewohkf7798;111:507-513. Performed By: #### L 501.6710, L505.7010, L800.1280, L3300.1200, L500.3400, L3100.5450 ####[facility] [address] [place], [address] Anti-Mitochondrial ABon 04-0 ANTIMITOCHON AB <20.0 Normal 0.0-20.0 [facility] Comment on above: Result Comment: Nega tive 0.0 - 20.0 Equivocal 20.1 - 24.9 Positive >24.9Mitochondrial (M2) Antibodies are found in 90-96% ofpatients with primary biliary cirrhosis. Performed By: #### L 501.6710, L505.7010, L800.1280, L3300.1200, L500.3400, L3100.5450 ####[facility] [address] [place], [place], [id number] LESTER serumOrdered By: Rosangela Gagnon on 10-17-2024 Anti-Nuclear Antibody Screen Negative Negative [facility] Comment on above: Performed at: [email or web address] [address] [id number] Director: Donny Armendariz PhD, Phone: [phone] Atypical perinuclear antineu trophil cytoplasmic antibodies measurementOrdered By: Savanna Gagnon on 10-17-2024 Atypical p-ANCA <1:20 titer Neg:<1:20 [facility] Comment on above: The atypical pANCA p attern has been observed in asignificant percentage of patients with ulcerative colitis,primary sclerosing cholangitis and autoimmune hepatitis.Performed at: [email or web address] [address] [id number] Director: Donny Armendariz PhD, Phone: [phone] Bilirubin directOrdered By: Savanna Gagnon on 10-17-2024 Bilirubin.direct [Mass/Vol] 0.25 mg/dL 0.00-0.3 0 [facility] Bilirubin, totalOrdered By: Savanna Gagnon on 10-17-2024 Bilirubin [Mass/Vol] 0.43 mg/dL 0.00-1.30 [facility] CRPon 10-17-2024 C-REACTIVE PROT 7.50 mg/L High 0.0-3.0 [facility] Comment on above: Performed By: #### L 501.6710, L505.7010, L800.1280, L3300.1200, L500.3400, L3100.5450 ####[facility] [address] [place], [place], [phone] CRP [Mass/Vol]Ordered By: Raf Gagnon on 10-17-2024 C-Reactive Protein Extended Range 7.50 mg/L High 0.0-3.0 [facility] Centromere B antibody assayO rdered By: Savanna Gagnon on 10-17-2024 Centromere [facility] Comment on above: Test not performed Chromatin antibody assayOrde red By: Savanna Kalin on 10-17-2024 Antichromatin Antibodies [facility] Comment on above: Test not performed DNA double strand Ab Qn (S)O rdered By: Savanna Kalin on 10-17-2024 Anti-Double Strand DNA Antibody [facility] Comment on above: Test not performed Gastroenterology Visit Repor ton 10-17-2024 Gastroenterology Visit Report Normal [facility] Sonali-1 antibody assayOrdered B y: Savanna Kalin on 10-17-2024 SONALI-1 Antibody [facility] Comment on above: Test not performed Laboratory - Chemistry and C hemistry - challengeOrdered By: Savanna Gagnon on 10-17-2024 AST [Catalytic activity/Vol] 35 U/L High <32 [facility] Liver Profileon 10-17-2024 Albumin [Mass/Vol] 4.0 g/dL Normal 3.4-4.8 [facility] Comment on above: Performed By: #### L 501.6710, L505.7010, L800.1280, L3300.1200, L500.3400, L3100.5450 ####[facility] [address] [place], [address] ALK PHOS 143 U/L High 35-104 [facility] Comment on above: Performed By: #### L 501.6710, L505.7010, L800.1280, L3300.1200, L500.3400, L3100.5450 ####[facility] [address] [place], [address] ALT [Catalytic activity/Vol] 31 U/L Normal <=34 [facility] Comment on above: Performed By: #### L 501.6710, L505.7010, L800.1280, L3300.1200, L500.3400, L3100.5450 ####[facility] [address] [place], [address] AST [Catalytic activity/Vol] 35 U/L High <=31 [facility] Comment on above: Performed By: #### L 501.6710, L505.7010, L800.1280, L3300.1200, L500.3400, L3100.5450 ####[facility] [address] [place], [address] Bilirubin [Mass/Vol] 0.43 mg/dL Normal 0.00-1.30 [facility] Comment on above: Performed By: #### L 501.6710, L505.7010, L800.1280, L3300.1200, L500.3400, L3100.5450 ####[facility] [address] [place], [address] Bilirubin.direct [Mass/Vol] 0.25 mg/dL Normal 0.00-0.3 0 [facility] Comment on above: Performed By: #### L 501.6710, L505.7010, L800.1280, L3300.1200, L500.3400, L3100.5450 ####[facility] [address] [place], [address] Globulin (S) [Mass/Vol] 2.7 g/dL Normal 2.2-4.2 [facility] Comment on above: Performed By: #### L 501.6710, L505.7010, L800.1280, L3300.1200, L500.3400, L3100.5450 ####[facility] [address] [place], [address] T PROT 6.7 g/dL Normal 5.9-8.4 [facility] Comment on above: Performed By: #### L 501.6710, L505.7010, L800.1280, L3300.1200, L500.3400, L3100.5450 ####[facility] [address] [place], [address] Mitochondria Ab Ql (S)Ordere d By: Savanna Gagnon on 10-17-2024 Anti-Mitochondrial Antibody <20.0 Units 0.0-20. 0 [facility] Comment on above: Negative 0.0 - 20.0 Equivocal 20.1 - 24.9 Positive >24.9Mitochondrial (M2) Antibodies are found in 90-96% ofpatients with primary biliary cirrhosis. Neutrophil cytoplasmic Ab.cl assic Qn (S)Ordered By: Savanna Gagnon on 10-17-2024 Cytoplasmic ANCA (c-ANCA) Antibody <1:20 titer Neg:<1:20 [facility] Neutrophil cytoplasmic Ab.pe rinuclear IF (S) [Titer]Ordered By: Savanna Gagnon on 10-17-2024 Perinuclear ANCA (p-ANCA) Antibody <1:20 titer Neg:<1:20 [facility] Comment on above: The presence of posi tive fluorescence exhibiting P-ANCA orC-ANCA patterns alone is not specific for the diagnosis ofWegener's Granulomatosis (WG) or microscopic polyangiitis.Decisions about treatment should not be based solely onANCA IFA results. The [employer] AN[employer] Consensusrecommends follow up testing of positive sera with both MI-3 and MPO-ANCA enzyme immunoassays. As many as 5% serumsamples are positive only by EIA. Ref. AM J Clin Oikcxv9881;111:507-513. DIRECTOR ZONE abOrdered By: Savanna duvall on 10-17-2024 DIRECTOR ZONE Antibody TNP [facility] Comment on above: Test not performed Rheumatoid Factoron 10-18-19 25 RHEUMATOID FAC < 10.0 Normal <15 [facility] Comment on above: Performed By: #### L 501.6710, L505.7010, L800.1280, L3300.1200, L500.3400, L3100.5450 ####[facility] [address] [place], [address] Rheumatoid factor Ql (S)Orde red By: Savanna Gagnon on 10-17-2024 Rheumatoid Factor < 10.0 IU/mL <15 [facility] SCL-70 extractable nuclear A b Qn (S)Ordered By: Savanna Gagnon on 10-17-2024 Scl-70 (Scleroderma) Antibody [facility] Comment on above: Test not performed SS-A IgG antibody assayOrder ed By: Savanna Gagnon on 10-17-2024 SS-A/Ro IgG Antibody [facility] Comment on above: Test not performed SS-B IgG antibody assayOrder ed By: Savanna Gagnon on 10-17-2024 SS-B/La IgG Antibody [facility] Comment on above: Test not performed Serum DNA double strand anti body assay (units/volume)Ordered By: Savanna Gagnon on 10-17-2024 DNA double strand Ab Qn (S) [facility] Comment on above: Test not performed Serum Scl-70 antibody assay (units/volume)Ordered By: Savanna Gagnon on 10-17-2024 SCL-70 extractable nuclear Ab Qn (S) [facility] Comment on above: Test not performed Serum classic neutrophil cyt oplasmic antibody assay (units/volume)Ordered By: Savanna Gagnon on 10-17-2024 Neutrophil cytoplasmic Ab.classic Qn (S) <1:20 titer Neg:<1:20 [facility] Serum globulin measurementOr dered By: Savanna Gagnon on 10-17-2024 Globulin (S) [Mass/Vol] 2.7 g/dL 2.2-4.2 [facility] Serum mitochondria antibody detectionOrdered By: Savanna Gagnon on 10-17-2024 Mitochondria Ab Ql (S) <20.0 Units 0.0-20.0 [facility] Comment on above: Negative 0.0 - 20.0 Equivocal 20.1 - 24.9 Positive >24.9Mitochondrial (M2) Antibodies are found in 90-96% ofpatients with primary biliary cirrhosis. Serum or plasma C reactive p rotein measurement (mass/volume)Ordered By: Savanna Gagnon on 10-17-2024 CRP [Mass/Vol] 7.50 mg/L High 0.0-3.0 [facility] Serum or plasma alanine vasquez otransferase (ALT) measurementOrdered By: Savanna Gagnon on 04-03-2025 ALT [Catalytic activity/Vol] 31 U/L <35 [facility] Serum or plasma albumin valeri urement (mass/volume)Ordered By: Savanna Gagnon on 10-17-2024 Albumin [Mass/Vol] 4.0 g/dL 3.4-4.8 [facility] Serum or plasma alkaline darrell sphatase measurementOrdered By: Savanna Gagnon on 10-17-2024 ALP [Catalytic activity/Vol] 143 U/L High 35-104 [facility] Serum perinuclear neutrophil cytoplasmic antibody titer by immunofluorescenceOrdered By: Savanna Gagnon on 10-17-2024 Neutrophil cytoplasmic Ab.perinuclear IF (S) [Titer] <1:20 titer Neg:<1:20 [facility] Comment on above: The presence of posi tive fluorescence exhibiting P-ANCA orC-ANCA patterns alone is not specific for the diagnosis ofWegener's Granulomatosis (WG) or microscopic polyangiitis.Decisions about treatment should not be based solely onANCA IFA results. The [employer] Consensusrecommends follow up testing of positive sera with both MI-3 and MPO-ANCA enzyme immunoassays. As many as 5% serumsamples are positive only by EIA. Ref. AM J Clin Mjljaz9302;111:507-513. Serum rheumatoid factor dete ctionOrdered By: Savanna Gagnon on 10-17-2024 Rheumatoid factor Ql (S) < 10.0 IU/mL <15 [facility] Garcia antibody assayOrdered By: Savanna Gagnon on 10-17-2024 SM Antibody TNP [facility] Comment on above: Test not performed Total proteinOrdered By: Zayra Gagnon on 10-17-2024 Protein [Mass/Vol] 6.7 g/dL 5.9-8.4 [facility] MRI Abd WITH and W/O Contras ton 10-15-2024 MRI Abd WITH and W/O Contrast Normal [facility] Magnetic resonance imaging r eportOrdered By: Abbe Donald on 10-15-2024 Study report [facility] Imaging Services [address] [place] [address] MRI Abd WITH and W/O Contrast MR#: [id number] Acct: [id number] Name: MARGIE FULTON Rep #: [id number] : 1940 F 84 From: Pet er Peer PCP: Dr. Danielle Paige DO Status: REG CLI Study:MRI Abd WITH and W/O Contrast Date of E xam: 10/15/24 Exam# [id number] Ordering Dr: Savanna Gagnon PROCEDURE: MRI ABD WITH AND W/O CONTRAST 10/15/2024 REASON FOR EXAM: ABNORMAL ABD US TECHNIQUE: Multiplanar, multisequence MRI of the upper abdomen without and with intravenousgadoliniu m-based contrast. CONTRAST: Clariscan VOLUME: 12mL IV FINDINGS: [...] to consider a surgical consult Reading Location: [facility] CC: ZACKARY Gagnon; Dr. Danielle Paige DO ~ Water Pollution Specialist: Signed [facility] EGD Reporton 10-10-2024 EGD Report Normal [facility] MR/POSTOP.ANEon 10-10-2024 MR/POSTOP.ANE Normal [facility] MR/JGQHMOON2et 10-10-2024 MR/POSTOPAN2 Normal [facility] Surgery Specimen Level Ethel 10-10-2024 Surgery Specimen Level IV Normal [facility] Comment on above: Performed By: #### P SUIV ####[facility] [address] [place], [address] Abdomen Limitedon 10-08-2024 Abdomen Limited Normal [facility] MR/PAT.ANEon 10-08-2024 MR/PAT.ANE Normal [facility] Esophagus Dual Contraston Esophagus Dual Contrast Normal [facility] Modified Barium Swallow Stud yon 09-25-2024 Modified Barium Swallow Study Normal [facility] L501.5101on 09-24-2024 GGTP 85 IU/L Abnormal 0-60 [facility] Comment on above: Result Comment: Perf ormed at: [facility] - [facility] [address] [id number] Director: Donny Armendariz PhD, Phone: [phone] Performed By: #### L 501.5101, [id number] ####[facility] [address] [place], [address] Bilirubin directOrdered By: Savanna Gagnon on 09-23-2024 Bilirubin.direct [Mass/Vol] 0.22 mg/dL 0.00-0.3 0 [facility] Bilirubin, totalOrdered By: Savanna Gagnon on 09-23-2024 Bilirubin [Mass/Vol] 0.44 mg/dL 0.00-1.30 [facility] Gamma glutamyl transferase ( GGT) measurementOrdered By: Savanna Gagnon on 09-23-2024 Amylase [Catalytic activity/Vol] 85 U/L High 0-60 [facility] Comment on above: Performed at: - [facility] [address] [id number] Director: Donny Armendariz PhD, Phone: [phone] Laboratory - Chemistry and C hemistry - challengeOrdered By: Savanna Gagnon on 09-23-2024 AST [Catalytic activity/Vol] 28 U/L <32 [facility] Liver Profileon 09-23-2024 Albumin [Mass/Vol] 3.9 g/dL Normal 3.4-4.8 [facility] Comment on above: Performed By: #### L 501.5101, L500.3406 ####[facility] [address] [place], [address] ALK PHOS 131 U/L High 35-104 [facility] Comment on above: Performed By: #### L 501.5101, L500.3400 ####[facility] [address] [place], [address] ALT [Catalytic activity/Vol] 21 U/L Normal <=34 [facility] Comment on above: Performed By: #### L 501.5101, L500.3400 ####[facility] [address] [place], [address] AST [Catalytic activity/Vol] 28 U/L Normal <=31 [facility] Comment on above: Performed By: #### L 501.5101, L500.3400 ####[facility] [address] [place], [address] Bilirubin [Mass/Vol] 0.44 mg/dL Normal 0.00-1.30 [facility] Comment on above: Performed By: #### L 501.5101, L500.3400 ####[facility] [address] [place], [address] Bilirubin.direct [Mass/Vol] 0.22 mg/dL Normal 0.00-0.3 0 [facility] Comment on above: Performed By: #### L 501.5101, L500.3400 ####[facility] [address] [place], [address] Globulin (S) [Mass/Vol] 2.6 g/dL Normal 2.2-4.2 [facility] Comment on above: Performed By: #### L 501.5101, L500.3400 ####[facility] [address] [place], [address] T PROT 6.4 g/dL Normal 5.9-8.4 [facility] Comment on above: Performed By: #### L 501.5101, L500.3400 ####[facility] [address] [place], [address] Serum globulin measurementOr dered By: Savanna Gagnon on 09-23-2024 Globulin (S) [Mass/Vol] 2.6 g/dL 2.2-4.2 [facility] Serum or plasma alanine vasquez otransferase (ALT) measurementOrdered By: Savanna Gagnon on 09-23-2024 ALT [Catalytic activity/Vol] 21 U/L <35 [facility] Serum or plasma albumin valeri urement (mass/volume)Ordered By: Savanna Gagnon on 09-23-2024 Albumin [Mass/Vol] 3.9 g/dL 3.4-4.8 [facility] Serum or plasma alkaline darrell sphatase measurementOrdered By: Savanna Gagnon on 09-23-2024 ALP [Catalytic activity/Vol] 131 U/L High 35-104 [facility] Total proteinOrdered By: Zayra Gagnon on 09-23-2024 Protein [Mass/Vol] 6.4 g/dL 5.9-8.4 [facility] Pulmonary Visit Reporton Pulmonary Visit Report Normal [facility] Gastroenterology Visit Repor ton 08-27-2024 Gastroenterology Visit Report Normal [facility] LESTER w/ Reflex Mult Confirmon 08-09-2024 LESTER TABLE TNP Normal [facility] Comment on above: Performed By: #### L 501.90592, L101.9900, L501.9520, L501.6710, L506.0400, L3100.5450, L100.0100, L4600.0100, L500.4050, L505.7010 ####[facility] [address] [place], [place], [address] ANTI-DNA (DS)AB TNP Normal [facility] Comment on above: Performed By: #### L 501.15111, L101.9900, L501.9520, L501.6710, L506.0400, L3100.5450, L100.0100, L4600.0100, L500.4050, L505.7010 ####[facility] [address] [place], [address] CCP IgG Antibodieson 025 CCP IgG Ab. 1 units Normal 0-19 [facility] Comment on above: Result Comment: Nega tive <20 Weak positive 20 - 39 Moderate positive 40 - 59 Strong positive >59Performed at: [email or web address] - [facility] [id number] [place], [place] [id number] Director: Donny Armendariz PhD, Phone: [phone] Performed By: #### L 501.51004, L101.9900, L501.9520, L501.6710, L506.0400, L3100.5450, L100.0100, L4600.0100, L500.4050, L505.7010 ####[facility] [address] [place], [address] LESTER serumOrdered By: Danielle tompkins on 08-07-2024 Anti-Nuclear Antibody Screen Negative Negative [facility] Comment on above: Performed at: [email or web address] - [facility] [id number] [place], [place] [id number] Director: Donny Armendariz PhD, Phone: [phone] Absolute lymphocyte countOrd ered By: Danielle Paige on 08-07-2024 Lymphocytes Auto (Unsp spec) [#/Vol] 1.21 10*3/uL 0.83-4.51 [facility] Absolute neutrophil countOrd ered By: Danielle Paige on 08-07-2024 Neutrophils (Bld) [#/Vol] 2.9 10*3/uL 2.0-7.7 [facility] Albumin to globulin ratioOrd ered By: Danielle Paige on 08-07-2024 Albumin/Globulin [Mass ratio] 1.0 {ratio} 0.9-2.4 [facility] Automated lymphocyte count a s percentage of total leukocytesOrdered By: Danielle Paige on 08-07-2024 Lymphocytes/100 WBC Auto (Unsp spec) 24.5 % 19-41 [facility] Basophil percentageOrdered B y: Danielle Paige on 08-07-2024 Basophils/100 WBC (Bld) 1.0 % 0-1 [facility] Bilirubin, totalOrdered By: Danielle Paige on 08-07-2024 Bilirubin [Mass/Vol] 0.50 mg/dL 0.20-1.00 [facility] Comment on above: For patients on eltr ombopag therapy, use of Dimension [place] TBIL is not recommended. Blood urea nitrogen (BUN)/cr eatinine ratioOrdered By: Danielle Paige on 08-07-2024 Urea nitrogen/Creatinine [Mass ratio] 23.5 mg/mg High 10-20 [facility] C-reactive protein measureme nt by high sensitivity methodOrdered By: Danielle Paige on 08-07-2024 C-Reactive Protein Extended Range 9.19 mg/L High 0.0-3.0 [facility] Comment on above: C-Reactive Protein ( CRP) provides useful information for thediagnosis, therapy and monitoring of inflammatory processesand associated diseases. For the evaluation of Relative Riskfor Cardiovascular Disease, a High Sensitivity CRP (HSCRP)should be ordered. C-reactive protein measurement by high sensitivity method 9.19 mg/L High 0.0-3.0 [facility] Comment on above: C-Reactive Protein ( CRP) provides useful information for thediagnosis, therapy and monitoring of inflammatory processesand associated diseases. For the evaluation of Relative Riskfor Cardiovascular Disease, a High Sensitivity CRP (HSCRP)should be ordered. CBC W/Diff, Automatedon 07-18 Absolute Lymph 1.21 X10 3/uL Normal 0.83-4.51 [facility] Comment on above: Performed By: #### L 501.95847, L101.9900, L501.9520, L501.6710, L506.0400, L3100.5450, L100.0100, L4600.0100, L500.4050, L505.7010 ####[facility] [address] [place], [place], [address] Absolute Neut 2.9 X10 3/uL Normal 2.0-7.7 [facility] Comment on above: Performed By: #### L 501.20596, L101.9900, L501.9520, L501.6710, L506.0400, L3100.5450, L100.0100, L4600.0100, L500.4050, L505.7010 ####[facility] [address] [place], [place], [phone] Basophils/100 WBC (Bld) 1.0 % Normal 0-1 [facility] Comment on above: Performed By: #### L 501.29662, L101.9900, L501.9520, L501.6710, L506.0400, L3100.5450, L100.0100, L4600.0100, L500.4050, L505.7010 ####[facility] [address] [place], [place], [phone] Eosinophils/100 WBC (Bld) 3.8 % Normal 0-5 [facility] Comment on above: Performed By: #### L 501.44490, L101.9900, L501.9520, L501.6710, L506.0400, L3100.5450, L100.0100, L4600.0100, L500.4050, L505.7010 ####[facility] [address] [facility] [address] [place], [place], [phone] Erythrocyte distribution width (RBC) [Ratio] 14.7 % High 11.6-14.6 [facility] Comment on above: Performed By: #### L 501.99530, L101.9900, L501.9520, L501.6710, L506.0400, L3100.5450, L100.0100, L4600.0100, L500.4050, L505.7010 ####[facility] [address] [facility] [address] [place], [place], [phone] Hematocrit (Bld) [Volume fraction] 40.2 % Normal 37-47 [facility] Comment on above: Performed By: #### L 501.44678, L101.9900, L501.9520, L501.6710, L506.0400, L3100.5450, L100.0100, L4600.0100, L500.4050, L505.7010 ####[facility] [address] [place], [address] Hemoglobin (Bld) [Mass/Vol] 12.6 g/dL Normal 12.0-15. 0 [facility] Comment on above: Performed By: #### L 501.59899, L101.9900, L501.9520, L501.6710, L506.0400, L3100.5450, L100.0100, L4600.0100, L500.4050, L505.7010 ####[facility] [address] [place], [address] IG% 0.400 Normal 0.0-0.9 [facility] Comment on above: Result Comment: IG% - Immature Granulocytes (promyelocytes, myelocytes andmetamyelocytes) > 1% indicates that a LEFT SHIFT is Present. Performed By: #### L 501.91869, L101.9900, L501.9520, L501.6710, L506.0400, L3100.5450, L100.0100, L4600.0100, L500.4050, L505.7010 ####[facility] [address] [place], [address] Lymphocytes/100 WBC (Bld) 24.5 % Normal 19-41 [facility] Comment on above: Performed By: #### L 501.19694, L101.9900, L501.9520, L501.6710, L506.0400, L3100.5450, L100.0100, L4600.0100, L500.4050, L505.7010 ####[facility] [address] [place], [address] MCH (RBC) [Entitic mass] 30.1 pg Normal 27.0-32.0 [facility] Comment on above: Performed By: #### L 501.84234, L101.9900, L501.9520, L501.6710, L506.0400, L3100.5450, L100.0100, L4600.0100, L500.4050, L505.7010 ####[facility] [address] [place], [address] MCHC (RBC) [Mass/Vol] 31.3 g/dL Low 32-36 [facility] Comment on above: Performed By: #### L 501.74247, L101.9900, L501.9520, L501.6710, L506.0400, L3100.5450, L100.0100, L4600.0100, L500.4050, L505.7010 ####[facility] [address] [place], [address] MCV (RBC) [Entitic vol] 95.9 fL Normal 81-99 [facility] Comment on above: Performed By: #### L 501.32993, L101.9900, L501.9520, L501.6710, L506.0400, L3100.5450, L100.0100, L4600.0100, L500.4050, L505.7010 ####[facility] [address] [place], [address] Monocytes/100 WBC (Bld) 10.9 % High 0-10 [facility] Comment on above: Performed By: #### L 501.51715, L101.9900, L501.9520, L501.6710, L506.0400, L3100.5450, L100.0100, L4600.0100, L500.4050, L505.7010 ####[facility] [address] [place], [address] Neutrophils/100 WBC (Bld) 59.4 % Normal 47-70 [facility] Comment on above: Performed By: #### L 501.65631, L101.9900, L501.9520, L501.6710, L506.0400, L3100.5450, L100.0100, L4600.0100, L500.4050, L505.7010 ####[facility] [address] [place], [address] Nucleated RBC (Bld) [#/Vol] 0 10*3/uL Normal 0-5 [facility] Comment on above: Performed By: #### L 501.96030, L101.9900, L501.9520, L501.6710, L506.0400, L3100.5450, L100.0100, L4600.0100, L500.4050, L505.7010 ####[facility] [address] [place], [address] Platelet mean volume (Bld) [Entitic vol] 10.0 fL Normal 6.2-12.0 [facility] Comment on above: Performed By: #### L 501.12496, L101.9900, L501.9520, L501.6710, L506.0400, L3100.5450, L100.0100, L4600.0100, L500.4050, L505.7010 ####[facility] [address] [place], [address] Platelets (Bld) [#/Vol] 289 10*3/uL Normal 150-450 [facility] Comment on above: Performed By: #### L 501.62363, L101.9900, L501.9520, L501.6710, L506.0400, L3100.5450, L100.0100, L4600.0100, L500.4050, L505.7010 ####[facility] [address] [place], [address] RBC (Bld) [#/Vol] 4.19 10*6/uL Low 4.2-5.4 [facility] Comment on above: Performed By: #### L 501.59302, L101.9900, L501.9520, L501.6710, L506.0400, L3100.5450, L100.0100, L4600.0100, L500.4050, L505.7010 ####[facility] [address] [place], [address] RDW SD 51.0 fl High 35.1-43.9 [facility] Comment on above: Performed By: #### L 501.79353, L101.9900, L501.9520, L501.6710, L506.0400, L3100.5450, L100.0100, L4600.0100, L500.4050, L505.7010 ####[facility] [address] [place], [address] WBC (Bld) [#/Vol] 4.9 10*3/uL Normal 4.4-11.0 [facility] Comment on above: Performed By: #### L 501.33538, L101.9900, L501.9520, L501.6710, L506.0400, L3100.5450, L100.0100, L4600.0100, L500.4050, L505.7010 ####[facility] [address] [place], [address] CRPon 08-07-2024 C-REACTIVE PROT 9.19 mg/L High 0.0-3.0 [facility] Comment on above: Result Comment: C-Re active Protein (CRP) provides useful information for thediagnosis, therapy and monitoring of inflammatory processesand associated diseases. For the evaluation of Relative Riskfor Cardiovascular Disease, a High Sensitivity CRP (HSCRP)should be ordered. Performed By: #### L 501.38971, L101.9900, L501.9520, L501.6710, L506.0400, L3100.5450, L100.0100, L4600.0100, L500.4050, L505.7010 ####[facility] [address] [place], [place], [phone] Carbon dioxide measurementOr dered By: Danielle Paige on 08-07-2024 CO2 [Moles/Vol] 28.0 mmol/L 21.0-32.0 [facility] Centromere B antibody assayO rdered By: Danielle Paige on 08-07-2024 Centromere B Antibody TNP [facility] Comment on above: Test not performed Chloride measurementOrdered By: Danielle Paige on 08-07-2024 Chloride [Moles/Vol] 106 mmol/L 98-107 [facility] Chromatin antibody assayOrde red By: Danielle Paige on 08-07-2024 Antichromatin Antibodies [facility] Comment on above: Test not performed Comprehensive Metabolic Prof ilon 08-07-2024 Albumin [Mass/Vol] 3.3 g/dL Normal 3.2-5.0 [facility] Comment on above: Performed By: #### L 501.97739, L101.9900, L501.9520, L501.6710, L506.0400, L3100.5450, L100.0100, L4600.0100, L500.4050, L505.7010 ####[facility] [address] [place], [place], [address] Albumin/Globulin [Mass ratio] 1.0 {ratio} Normal 0.9-2.4 [facility] Comment on above: Performed By: #### L 501.44489, L101.9900, L501.9520, L501.6710, L506.0400, L3100.5450, L100.0100, L4600.0100, L500.4050, L505.7010 ####[facility] [address] [place], [place], [phone] ALK P 177 U/L High 45-117 [facility] Comment on above: Performed By: #### L 501.84544, L101.9900, L501.9520, L501.6710, L506.0400, L3100.5450, L100.0100, L4600.0100, L500.4050, L505.7010 ####[facility] [address] [place], [address] ALT [Catalytic activity/Vol] 41 U/L Normal 13-56 [facility] Comment on above: Performed By: #### L 501.53090, L101.9900, L501.9520, L501.6710, L506.0400, L3100.5450, L100.0100, L4600.0100, L500.4050, L505.7010 ####[facility] [address] [place], [place], [phone] AST [Catalytic activity/Vol] 38 U/L High 15-37 [facility] Comment on above: Performed By: #### L 501.54789, L101.9900, L501.9520, L501.6710, L506.0400, L3100.5450, L100.0100, L4600.0100, L500.4050, L505.7010 ####[facility] [address] [place], [place], [address] Bilirubin [Mass/Vol] 0.50 mg/dL Normal 0.20-1.00 [facility] Comment on above: Result Comment: For patients on eltrombopag therapy, use of Dimension [place] TBIL is not recommended. Performed By: #### L 501.92417, L101.9900, L501.9520, L501.6710, L506.0400, L3100.5450, L100.0100, L4600.0100, L500.4050, L505.7010 ####[facility] [address] [place], [address] BUN/CRE 23.5 RATIO High 10-20 [facility] Comment on above: Performed By: #### L 501.03663, L101.9900, L501.9520, L501.6710, L506.0400, L3100.5450, L100.0100, L4600.0100, L500.4050, L505.7010 ####[facility] [address] [place], [place], [phone] CA,Total 9.5 mg/dL Normal 8.5-10.1 [facility] Comment on above: Performed By: #### L 501.74627, L101.9900, L501.9520, L501.6710, L506.0400, L3100.5450, L100.0100, L4600.0100, L500.4050, L505.7010 ####[facility] [address] [place], [phone] Chloride [Moles/Vol] 106 mmol/L Normal 98-107 [facility] Comment on above: Performed By: #### L 501.36603, L101.9900, L501.9520, L501.6710, L506.0400, L3100.5450, L100.0100, L4600.0100, L500.4050, L505.7010 ####[facility] [address] [place], [phone] CO2 [Moles/Vol] 28.0 mmol/L Normal 21.0-32.0 [facility] Comment on above: Performed By: #### L 501.12477, L101.9900, L501.9520, L501.6710, L506.0400, L3100.5450, L100.0100, L4600.0100, L500.4050, L505.7010 ####[facility] [address] [facility] [address] [place], [place], [phone]) Creatinine [Mass/Vol] 0.81 mg/dL Normal 0.55-1.02 [facility] Comment on above: Result Comment: The validity of the calculated GFR GFRAA in patients over70 years has not been determined. Clinical correlation isessential. Performed By: #### L 501.84288, L101.9900, L501.9520, L501.6710, L506.0400, L3100.5450, L100.0100, L4600.0100, L500.4050, L505.7010 ####[facility] [address] [place], [place], [phone] EST GFR - AA 87 mL/min Normal >60 [facility] Comment on above: Result Comment: Afri can Hungarian GFR Calc Performed By: #### L 501.76507, L101.9900, L501.9520, L501.6710, L506.0400, L3100.5450, L100.0100, L4600.0100, L500.4050, L505.7010 ####[facility] [address] [place], [place], [address] GAP 6 Normal 5-15 [facility] Comment on above: Performed By: #### L 501.41370, L101.9900, L501.9520, L501.6710, L506.0400, L3100.5450, L100.0100, L4600.0100, L500.4050, L505.7010 ####[facility] [address] [place], [place], [phone] GFR/1.73 sq M.predicted among non-blacks MDRD (S/P/Bld) [Vol rate/Area] 72 mL/min/{1.73_m2} Normal >60 [facility] Comment on above: Result Comment: Non- GFR Calc Performed By: #### L 501.47010, L101.9900, L501.9520, L501.6710, L506.0400, L3100.5450, L100.0100, L4600.0100, L500.4050, L505.7010 ####[facility] [address] [place], [place], [phone] Globulin (S) [Mass/Vol] 3.4 g/dL Normal 2.2-4.2 [facility] Comment on above: Performed By: #### L 501.87877, L101.9900, L501.9520, L501.6710, L506.0400, L3100.5450, L100.0100, L4600.0100, L500.4050, L505.7010 ####[facility] [address] [place], [place], [phone] Glucose [Mass/Vol] 87 mg/dL Normal 74-106 [facility] Comment on above: Performed By: #### L 501.91015, L101.9900, L501.9520, L501.6710, L506.0400, L3100.5450, L100.0100, L4600.0100, L500.4050, L505.7010 ####[facility] [address] [place], [place], [phone](758) Potassium [Moles/Vol] 3.8 mmol/L Normal 3.5-5.1 [facility] Comment on above: Performed By: #### L 501.60244, L101.9900, L501.9520, L501.6710, L506.0400, L3100.5450, L100.0100, L4600.0100, L500.4050, L505.7010 ####[facility] [address] [place], [place], [phone](477) Sodium [Moles/Vol] 140 mmol/L Normal 136-145 [facility] Comment on above: Performed By: #### L 501.16655, L101.9900, L501.9520, L501.6710, L506.0400, L3100.5450, L100.0100, L4600.0100, L500.4050, L505.7010 ####[facility] [address] [place], [place], [phone](272) T PROT 6.7 g/dL Normal 6.4-8.2 [facility] Comment on above: Performed By: #### L 501.22489, L101.9900, L501.9520, L501.6710, L506.0400, L3100.5450, L100.0100, L4600.0100, L500.4050, L505.7010 ####[facility] [address] [facility] [place], [place], [phone] Urea nitrogen [Mass/Vol] 19 mg/dL High 7-18 [facility] Comment on above: Performed By: #### L 501.59711, L101.9900, L501.9520, L501.6710, L506.0400, L3100.5450, L100.0100, L4600.0100, L500.4050, L505.7010 ####[facility] [address] [facility] [place], [address] Cyclic citrullinated peptide IgG QnOrdered By: Danielle Paige on 08-07-2024 Cyclic Citrullinated Peptide IgG Ab 1 units 0-19 [facility] Comment on above: Negative <20 Weak po sitive 20 - 39 Moderate positive 40 - 59 Strong positive >59Performed at: - [facility] [id number] Director: Donny Armendariz PhD, Phone: [phone] DNA double strand Ab Qn (S)O rdered By: Danielle Paige on 08-07-2024 Anti-Double Strand DNA Antibody TNP [facility] Comment on above: Test not performed Direct serum free thyroxine (FT4) measurementOrdered By: Danielle Paige on 08-07-2024 Free T4 [Mass/Vol] 0.57 ng/dL Low 0.76-1.46 [facility] Eosinophil percentageOrdered By: Danielle Paige on 08-07-2024 Eosinophils/100 WBC (Bld) 3.8 % 0-5 [facility] Erythrocyte Sed Rateon 08-07 SED RATE 14 mm/hr Normal 0-30 [facility] Comment on above: Performed By: #### L 501.55489, L101.9900, L501.9520, L501.6710, L506.0400, L3100.5450, L100.0100, L4600.0100, L500.4050, L505.7010 ####[facility] [address] [place], [address] Erythrocyte distribution wid th ratioOrdered By: Danielle Paige on 08-07-2024 Erythrocyte distribution width (RBC) [Ratio] 14.7 % High 11.6-14.6 [facility] Erythrocyte distribution wid th standard deviationOrdered By: Danielle Paige on 08-07-2024 Erythrocyte distribution width (RBC) [Entitic vol] 51.0 fL High 35.1-43.9 [facility] Erythrocyte distribution width (RBC) [Ratio] 51.0 fl High 35.1-43.9 [facility] Erythrocyte sedimentation ra teOrdered By: Danielle Paige on 08-07-2024 ESR (Bld) [Velocity] 14 mm/h 0-30 [facility] Estimated glomerular filtrat ion rate (GFR) AmericanOrdered By: Danielle Paige on 08-07-2024 Estimated GFR (MDRD) Amer 87 mL/min >60 [facility] Comment on above: GFR Calc Free T3on 08-07-2024 Free T3 [Mass/Vol] 3.1 pg/mL Normal 2.18-3.98 [facility] Comment on above: Performed By: #### L 501.92722, L101.9900, L501.9520, L501.6710, L506.0400, L3100.5450, L100.0100, L4600.0100, L500.4050, L505.7010 ####[facility] [address] [place], [place], [phone] Free U9Axabzow By: Danielle garcia on 08-07-2024 Free T3 [Mass/Vol] 3.1 pg/mL 2.18-3.98 [facility] Free Triiodothyronine (T3) pg/dL 3.1 pg/mL 2.18-3.98 [facility] Glomerular filtration rate ( GFR) estimationOrdered By: Danielle Paige on 08-07-2024 Estimated GFR (MDRD) Non-Af Amer 72 mL/min >60 [facility] Comment on above: Non- GFR Calc GFR/1.73 sq M.predicted among non-blacks MDRD (S/P/Bld) [Vol rate/Area] 72 mL/min/{1.73_m2} >60 [facility] Comment on above: Non- GFR Calc Glucose measurementOrdered B y: Danielle Paige on 08-07-2024 Glucose [Mass/Vol] 87 mg/dL 74-106 [facility] Hematocrit Auto (Bld) [Volum e fraction]Ordered By: Danielle Paige on 08-07-2024 Hematocrit (Bld) [Volume fraction] 40.2 % 37-47 [facility] Hemoglobin measurementOrdere d By: Danielle Paige on 08-07-2024 Hemoglobin (Bld) [Mass/Vol] 12.6 g/dL 12.0-15. 0 [facility] Immature granulocytes/100 WB C Auto (Bld)Ordered By: Danielle Paige on 08-07-2024 Immature granulocytes/100 WBC (Bld) 0.400 % 0.0-0.9 [facility] Comment on above: IG% - Immature Granu locytes (promyelocytes, myelocytes and metamyelocytes) > 1% indicates that a LEFT SHIFT is Present. Sonali-1 antibody assayOrdered B y: Danielle Piage on 08-07-2024 SONALI-1 Antibody TNP [facility] Comment on above: Test not performed Laboratory - Chemistry and C hemistry - challengeOrdered By: Danielle Paige on 08-07-2024 AST [Catalytic activity/Vol] 38 U/L High 15-37 [facility] Lymphocytes Auto (Unsp spec) [#/Vol]Ordered By: Danielle Paige on 08-07-2024 Lymphocytes (Bld) [#/Vol] 1.21 10*3/uL 0.83-4.5 1 [facility] Lymphocytes/100 WBC Auto (Un sp spec)Ordered By: Danielle Paige on 08-07-2024 Lymphocytes/100 WBC (Bld) 24.5 % 19-41 [facility] MCV (mean corpuscular volume ) determinationOrdered By: Danielle Paige on 08-07-2024 MCV (RBC) [Entitic vol] 95.9 fL 81-99 [facility] Mean corpuscular hemoglobin (MCH) determinationOrdered By: Danielle Paige on 08-07-2024 MCH (RBC) [Entitic mass] 30.1 pg 27.0-32.0 [facility] Mean corpuscular hemoglobin concentration (MCHC) determinationOrdered By: Danielle Paige on 08-07-2024 MCHC (RBC) [Mass/Vol] 31.3 g/dL Low 32-36 [facility] Mean platelet volume determi nationOrdered By: Danielle Paige on 08-07-2024 Platelet mean volume (Bld) [Entitic vol] 10.0 fL 6.2-12.0 [facility] Monocyte percentageOrdered B y: Danielle Paige on 08-07-2024 Monocytes/100 WBC (Bld) 10.9 % High 0-10 [facility] Neutrophil percentageOrdered By: Danielle Paige on 08-07-2024 Neutrophils/100 WBC (Bld) 59.4 % 47-70 [facility] Nucleated red blood cell per centageOrdered By: Danielle Paige on 08-07-2024 Nucleated RBC/100 WBC (Bld) [Ratio] 0 % 0-5 [facility] Platelet countOrdered By: Jasmyne Paige on 08-07-2024 Platelets (Bld) [#/Vol] 289 10*3/uL 150-450 [facility] [facility] Potassium measurementOrdered By: Danielle Paige on 08-07-2024 Potassium [Moles/Vol] 3.8 mmol/L 3.5-5.1 [facility] RBC Auto (Bld) [#/Vol]Ordere d By: Danielle Paige on 08-07-2024 RBC (Bld) [#/Vol] 4.19 10*6/uL Low 4.2-5.4 [facility] DIRECTOR ZONE abOrdered By: Danielle Paige on 08-07-2024 [facility] Comment on above: Test not performed Rheumatoid Factoron 08-07-19 25 RHEUMATOID FAC < 10.0 Normal <15 [facility] Comment on above: Performed By: #### L [id number], L101.9900, L501.9520, L501.6710, L506.0400, L3100.5450, L100.0100, L4600.0100, L500.4050, L505.7010 ####[facility] [address] [place], [place], [address] Rheumatoid factor measuremen tOrdered By: Danielle Paige on 08-07-2024 Rheumatoid Factor < 10.0 IU/mL <15 [facility] SCL-70 extractable nuclear A b Qn (S)Ordered By: Danielle Paige on 08-07-2024 Scl-70 (Scleroderma) Antibody [facility] Comment on above: Test not performed SS-A IgG antibody assayOrder ed By: Danielle Paige on 08-07-2024 SS-A/Ro IgG Antibody [facility] Comment on above: Test not performed SS-B IgG antibody assayOrder ed By: Danielle Paige on 08-07-2024 SS-B/La IgG Antibody [facility] Comment on above: Test not performed Serum DNA double strand anti body assay (units/volume)Ordered By: Danielle Paige on 08-07-2024 DNA double strand Ab Qn (S) [facility] Comment on above: Test not performed Serum Scl-70 antibody assay (units/volume)Ordered By: Danielle Paige on 08-07-2024 SCL-70 extractable nuclear Ab Qn (S) [facility] Comment on above: Test not performed Serum anion gap measurementO rdered By: Danielle Paige on 08-07-2024 Anion gap [Moles/Vol] 6 mmol/L 5-15 [facility] Serum globulin measurementOr dered By: Danielle Paige on 08-07-2024 Globulin (S) [Mass/Vol] 3.4 g/dL 2.2-4.2 [facility] Serum or plasma alanine vasquez otransferase (ALT) measurementOrdered By: Danielle Paige on 08-07-2024 ALT [Catalytic activity/Vol] 41 U/L 13-56 [facility] Serum or plasma albumin valeri urement (mass/volume)Ordered By: Danielle Paige on 08-07-2024 Albumin [Mass/Vol] 3.3 g/dL 3.2-5.0 [facility] Serum or plasma alkaline darrell sphatase measurementOrdered By: Danielle Paige on 08-07-2024 ALP [Catalytic activity/Vol] 177 U/L High 45-117 [facility] Serum or plasma calcium valeri urement (mass/volume)Ordered By: Danielle Paige on 08-07-2024 Calcium [Mass/Vol] 9.5 mg/dL 8.5-10.1 [facility] Serum or plasma creatinine m easurement (mass/volume)Ordered By: Danielle Paige on 08-07-2024 Creatinine [Mass/Vol] 0.81 mg/dL 0.55-1.02 [facility] Comment on above: The validity of the calculated GFR & GFRAA in patients over 70 years has not been determined. Clinical correlation is essential. Serum or plasma cyclic citru llinated peptide IgG antibody assay (units/volume)Ordered By: Danielle Paige on 08-07-2024 Cyclic citrullinated peptide IgG Qn 1 units 0-19 [facility] Comment on above: Negative <20 Weak po sitive 20 - 39 Moderate positive 40 - 59 Strong positive >59Performed at: [facility] [place] [id number] Director: Donny Armendariz PhD, Phone: [phone] Serum or plasma thyroid stim ulating hormone (TSH) measurement (units/volume)Ordered By: Danielle Paige on 08-07-2024 TSH Qn 2.000 uIU/mL 0.358-3.740 [facility] Serum or plasma urea nitroge n measurement (mass/volume)Ordered By: Danielle Paige on 08-07-2024 Urea nitrogen [Mass/Vol] 19 mg/dL High 7-18 [facility] Garcia antibody assayOrdered By: Danielle Paige on 08-07-2024 SM Antibody TNP [facility] Comment on above: Test not performed Sodium levelOrdered By: Danielle Paige on 08-07-2024 Sodium [Moles/Vol] 140 mmol/L 136-145 [facility] T4 Free Directon 08-07-2024 T4 FREE DIRECT 0.57 ng/dL Low 0.76-1.46 [facility] Comment on above: Performed By: #### L [id number], L101.9900, L501.9520, L501.6710, L506.0400, L3100.5450, L100.0100, L4600.0100, L500.4050, L505.7010 ####[facility] [address] [place], [place], [id number] TSH QnOrdered By: Danielle Paige on 08-07-2024 Thyroid Stimulating Hormone (TSH) 2.000 uIU/mL 0.358-3.740 [facility] Thyroid Stim Hormone (TSH)on 08-07-2024 TSH 2.000 uIU/mL Normal 0.358-3.740 [facility] Comment on above: Performed By: #### L 501.97719, L101.9900, L501.9520, L501.6710, L506.0400, L3100.5450, L100.0100, L4600.0100, L500.4050, L505.7010 ####[facility] [address] [place], [place], [id number] Total proteinOrdered By: Marnie Paige on 08-07-2024 Protein [Mass/Vol] 6.7 g/dL 6.4-8.2 [facility] White blood cell (WBC) count Ordered By: Danielle Paige on 08-07-2024 WBC (Bld) [#/Vol] 4.9 10*3/uL 4.4-11.0 [facility] UA DIP, URINE (POC)on 2023 BILIRUBIN UA (POCT) Negative Negative [facility] CLARITY UA (POCT) Clear [facility] COLOR UA (POCT) Yellow [facility] GLUCOSE UA (POCT) Negative Negative mg/dL [facility] Hemoglobin Ql (U) Negative Negative [facility] KETONE UA (POCT) Negative Negative mg/dL [facility] LEUKOCYTES UA (POCT) Negative [facility] NITRITE UA (POCT) Negative Negative [facility] PH UA (POCT) 6.5 4.5 - 8.0 [facility] Protein Ql (U) Negative Negative mg/dL [facility] SPECIFIC GRAVITY UA (POCT) 1.010 1 .005 - 1.030 [facility] UROBILINOGEN UA (POCT) 0.2 Kaylan l E.U./dL [facility] Location:[facility], [address], [place], [place], [id number] [place] [address] POINT OF CARE [facility] CNPNon 03-21-2024 CNPN Telephone (RINKU) MARGIE FULTON ([id number]) 1940 F Date Time Provider Department 03/21/24 [...] approved through 07/16/24 - NPCR. Sending to waiter/waitress captain for ppx abx order. Marline Yi RN March 21, 2024 4:37 PM Ny Moser APRN.[facility] 03/21/2024 5:41 PM Signed The following approved medication requests have been transmitted electronically. Requested Prescriptions Signed Prescriptions Disp Refills sulfamethoxazole-tri methoprim (BACTRIM DS) 800-160 mg per tablet 6 tablet 0 Sig: Take 1 tablet by mouth two times a day. Start one day before your bladder procedure. Authorizing Provider: [place] [facility] Information Pharmacy Address Telephone [id number] [place] [address] Ny Moser APRN.[facility] March 21, 2024 5:41 PM Juliette Peacock [...] of her procedure and to notify the front desk admin if she needs to use the restroom upon arrival. Patient verbalizes understanding and has no further questions at this time. Juliette Peacock RN March 27, 2024 10:51 AM Allergies As of Date: 03/21/2024 (No Known Allergies) Date Reviewed: 10/12/2023 Reviewed by: Jessie Krishna RN - Fully Assessed Reason for Visit: Care Coordination [3491] Cmt: Botox Primary Visit Diagnosis:Prophylact ic antibiotic [Z79.2] Order(s):sulfamethox azole-trimethoprim (BACTRIM DS) 800-160 mg per tabletTake 1 tablet by mouth two times a day. 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 Start one day before your bladder procedure. Encounter Status:Closed by MARLINE YI on 03/22/24 Normal [facility] PT D/C Summary (1)on 024 PT D/C Summary (1) Normal [facility] Basophil percentageOrdered B y: Danielle Paige on 11-02-2023 Bilirubin [Mass/Vol] 0.30 mg/dL 0.20-1.00 [facility] Comment on above: For patients on eltr ombopag therapy, use of Dimension [place] TBIL is not recommended. Chloride [Moles/Vol] 108 mmol/L 98-107 [facility] Glucose [Mass/Vol] 75 mg/dL 74-106 [facility] Potassium [Moles/Vol] 4.2 mmol/L 3.5-5.1 [facility] Protein [Mass/Vol] 6.6 g/dL 6.4-8.2 [facility] Sodium [Moles/Vol] 139 mmol/L 136-145 [facility] Laboratory - Chemistry and C hemistry - challengeOrdered By: Danielle Paige on 11-02-2023 Albumin/Globulin [Mass ratio] 1.1 {ratio} 0.9-2.4 [facility] ALP [Catalytic activity/Vol] 47 U/L 45-117 [facility] ALT [Catalytic activity/Vol] 29 U/L 13-56 [facility] CO2 [Moles/Vol] 25.0 mmol/L 21.0-32.0 [facility] Globulin (S) [Mass/Vol] 3.2 g/dL 2.2-4.2 [facility] Urea nitrogen/Creatinine [Mass ratio] 20.8 mg/mg 10-20 [facility] No Panel InformationOrdered By: Danielle Paige on 11-02-2023 Estimated GFR (MDRD) Amer 68 mL/min >60 [facility] Comment on above: GFR Calc Estimated GFR (MDRD) Non-Af Amer 56 mL/min >60 [facility] Comment on above: Non- GFR Calc Serum or plasma calcium valeri urement (mass/volume)Ordered By: Danielle Paige on 11-02-2023 Calcium [Mass/Vol] 8.6 mg/dL 8.5-10.1 [facility] Serum or plasma creatinine m easurement (mass/volume)Ordered By: Daneille Paige on 11-02-2023 Creatinine [Mass/Vol] 1.01 mg/dL 0.55-1.02 [facility] Comment on above: The validity of the calculated GFR & GFRAA in patients over 70 years has not been determined. Clinical correlation is essential. Serum or plasma urea nitroge n measurement (mass/volume)Ordered By: Danielle Paige on 11-02-2023 Urea nitrogen [Mass/Vol] 21 mg/dL 7-18 [facility] Thin prep Papanicolaou smear with manual screeningOrdered By: Danielle Paige on 11-02-2023 Thin prep Papanicolaou smear with manual screening 3.4 g/dL 3.2-5.0 [facility] Thin prep Papanicolaou smear with manual screening 39 U/L 15-37 [facility] Thin prep Papanicolaou smear with manual screening 6 5-15 [facility] Basophil percentageOrdered B y: Danielle Paige on 10-17-2023 Bilirubin [Mass/Vol] 0.40 mg/dL 0.20-1.00 [facility] Comment on above: For patients on eltr ombopag therapy, use of Dimension [place] TBIL is not recommended. Chloride [Moles/Vol] 107 mmol/L 98-107 [facility] Glucose [Mass/Vol] 69 mg/dL 74-106 [facility] Potassium [Moles/Vol] 4.2 mmol/L 3.5-5.1 [facility] Protein [Mass/Vol] 7.0 g/dL 6.4-8.2 [facility] Sodium [Moles/Vol] 140 mmol/L 136-145 [facility] Laboratory - Chemistry and C hemistry - challengeOrdered By: Danielle Paige on 10-17-2023 Albumin/Globulin [Mass ratio] 1.2 {ratio} 0.9-2.4 [facility] ALP [Catalytic activity/Vol] 48 U/L 45-117 [facility] ALT [Catalytic activity/Vol] 25 U/L 13-56 [facility] CO2 [Moles/Vol] 26.0 mmol/L 21.0-32.0 [facility] Globulin (S) [Mass/Vol] 3.2 g/dL 2.2-4.2 [facility] Natriuretic peptide B (Bld) [Mass/Vol] 56.6 pg/mL 0-100 [facility] Urea nitrogen/Creatinine [Mass ratio] 17.9 mg/mg 10-20 [facility] No Panel InformationOrdered By: Danielle Paige on 10-17-2023 Estimated GFR (MDRD) Amer 35 mL/min >60 [facility] Comment on above: GFR Calc Estimated GFR (MDRD) Non-Af Amer 29 mL/min >60 [facility] Comment on above: Non- GFR Calc Serum or plasma calcium valeri urement (mass/volume)Ordered By: Danielle Paige on 10-17-2023 Calcium [Mass/Vol] 9.3 mg/dL 8.5-10.1 [facility] Serum or plasma creatinine m easurement (mass/volume)Ordered By: Danielle Paige on 10-17-2023 Creatinine [Mass/Vol] 1.79 mg/dL 0.55-1.02 [facility] Comment on above: The validity of the calculated GFR & GFRAA in patients over 70 years has not been determined. Clinical correlation is essential. Serum or plasma urea nitroge n measurement (mass/volume)Ordered By: Danielle Paige on 10-17-2023 Urea nitrogen [Mass/Vol] 32 mg/dL 7-18 [facility] Thin prep Papanicolaou smear with manual screeningOrdered By: Danielle Paige on 10-17-2023 Thin prep Papanicolaou smear with manual screening 3.8 g/dL 3.2-5.0 [facility] Thin prep Papanicolaou smear with manual screening 38 U/L 15-37 [facility] Thin prep Papanicolaou smear with manual screening 7 5-15 [facility] CNOVon 10-12-2023 CNOV Office Visit (GYRUDOLPHWP) MARGIE FULTON ([id number]) 1940 F Date Time Provider Department 10/12/23 [...] Video-assisted cystourethroscopy was performed using a 19 Martiniquais 30 degree cystoscope with saline infusion. 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 Normal [facility] Absolute lymphocyte countOrd ered By: Melvin Mcclelland on 10-04-2023 Lymphocytes Auto (Unsp spec) [#/Vol] 1.43 10*3/uL 0.83-4.51 [facility] Automated lymphocyte count a s percentage of total leukocytesOrdered By: Mevlin Krystin on 10-04-2023 Lymphocytes/100 WBC Auto (Unsp spec) 21.2 % 19-41 [facility] Basophil percentageOrdered B y: Melvin Krystin on 10-04-2023 Basophils/100 WBC (Bld) 0.7 % 0-1 [facility] Chloride [Moles/Vol] 111 mmol/L 98-107 [facility] Eosinophils/100 WBC (Bld) 2.5 % 0-5 [facility] Glucose [Mass/Vol] 90 mg/dL 74-106 [facility] Hemoglobin (Bld) [Mass/Vol] 11.4 g/dL 12.0-15. 0 [facility] Monocytes/100 WBC (Bld) 8.1 % 0-10 [facility] Neutrophils (Bld) [#/Vol] 4.5 10*3/uL 2.0-7.7 [facility] Neutrophils/100 WBC (Bld) 67.1 % 47-70 [facility] Potassium [Moles/Vol] 4.1 mmol/L 3.5-5.1 [facility] Sodium [Moles/Vol] 142 mmol/L 136-145 [facility] WBC (Bld) [#/Vol] 6.8 10*3/uL 4.4-11.0 [facility] Determination of erythrocyte mean corpuscular volume (MCV)Ordered By: Melvin Mcclelland on 10-04-2023 MCV (RBC) [Entitic vol] 96.7 fL 81-99 [facility] Erythrocyte distribution wid th ratioOrdered By: [place] Mcclelland on 10-04-2023 Erythrocyte distribution width (RBC) [Ratio] 14.5 % 11.6-14.6 [facility] Erythrocyte distribution wid th standard deviationOrdered By: Melvin Mcclelland on 10-04-2023 Erythrocyte distribution width (RBC) [Entitic vol] 51.5 fL 35.1-43.9 [facility] Hematocrit Auto (Bld) [Volum e fraction]Ordered By: Melvin Mcclelland on 10-04-2023 Hematocrit (Bld) [Volume fraction] 35.4 % 37-47 [facility] Immature granulocytes/100 WB C Auto (Bld)Ordered By: Melvinnick Mcclelland on 10-04-2023 Immature granulocytes/100 WBC (Bld) 0.400 % 0.0-0.9 [facility] Comment on above: IG% - Immature Granu locytes (promyelocytes, myelocytes and metamyelocytes) > 1% indicates that a LEFT SHIFT is Present. Laboratory - Chemistry and C hemistry - challengeOrdered By: Melvin Mcclelland on 10-04-2023 CO2 [Moles/Vol] 25.0 mmol/L 21.0-32.0 [facility] Natriuretic peptide B (Bld) [Mass/Vol] 106.0 pg/mL 0-100 [facility] Urea nitrogen/Creatinine [Mass ratio] 25.2 mg/mg 10-20 [facility] Laboratory - Hematology and Cell countsOrdered By: Melvin Mcclelland on 10-04-2023 MCH (RBC) [Entitic mass] 31.1 pg 27.0-32.0 [facility] MCHC (RBC) [Mass/Vol] 32.2 g/dL 32-36 [facility] Nucleated RBC/100 WBC (Bld) [Ratio] 0 % 0-5 [facility] Platelet mean volume (Bld) [Entitic vol] 9.6 fL 6.2-12.0 [facility] Platelets (Bld) [#/Vol] 285 10*3/uL 150-450 [facility] No Panel InformationOrdered By: Melvin Mcclelland on 10-04-2023 Estimated GFR (MDRD) Amer 76 mL/min >60 [facility] Comment on above: GFR Calc Estimated GFR (MDRD) Non-Af Amer 63 mL/min >60 [facility] Comment on above: Non- GFR Calc RBC Auto (Bld) [#/Vol]Ordere d By: Melvin Mcclelland on 10-04-2023 RBC (Bld) [#/Vol] 3.66 10*6/uL 4.2-5.4 [facility] Serum or plasma calcium valeri urement (mass/volume)Ordered By: Melvin Mcclelland on 10-04-2023 Calcium [Mass/Vol] 8.9 mg/dL 8.5-10.1 [facility] Serum or plasma creatinine m easurement (mass/volume)Ordered By: Melvin Mcclelland on 10-04-2023 Creatinine [Mass/Vol] 0.91 mg/dL 0.55-1.02 [facility] Comment on above: The validity of the calculated GFR & GFRAA in patients over 70 years has not been determined. Clinical correlation is essential. Serum or plasma thyroid stim ulating hormone (TSH) measurement (units/volume)Ordered By: Melvin Mcclelland on 10-04-2023 TSH Qn 2.72 uIU/mL 0.358-3.74 [facility] Serum or plasma urea nitroge n measurement (mass/volume)Ordered By: Melvin Krystin on 10-04-2023 Urea nitrogen [Mass/Vol] 23 mg/dL 7-18 [facility] Thin prep Papanicolaou smear with manual screeningOrdered By: [place] Krystin on 10-04-2023 Thin prep Papanicolaou smear with manual screening 6 5-15 [facility] CNPNon 09-11-2023 CNPN Telephone (GYURWP) MARGIE FULTON ([id number]) 1940 F Date Time Provider Department 09/11/23 MONI HUSAIN During your visit today, we recorded the following information about you: Marline Yi RN 09/11/2023 9:06 AM Signed Botox 100 units 09/11 [facility] injection Previous injections: 03/09/23, 09/07/22, 03/02/22, 09/01/21, 02/24/21 Reviewed insurance in [employer] - confirmed it is the same as what we have in [facility]. Need Cysto and Botox CAM orders signed. Sending to waiter/waitress captain to sign pended orders. Marline Yi RN [...] personally performed the entire procedure. Procedure Codes 88699 CYSTOSCOPY CHEMODENERVATION J0585 BOTULINUM TOXIN TYPE A PER UNIT [facility] 0023 1145 01 BOTOX EXP 2025 LOT [id number], Units: 100.00 , Modifiers: JZ Follow Up [...] LOYD on: 09/19/2023 12:12 PM Modules accepted: Marline Thao RN 09/20/2023 9:56 AM Signed Botox 10/11 with [facility] Blood thinners: Asa 81 mg Ppx abx: Bactrim sent to [facility] in [place] 09/18 Called pt and left detailed VM regarding ppx abx and asa 81 mg. Asked to call office back with any issues or is she is on other blood thinners. Marline Yi RN September 20, 2023 9:56 AM Allergies As of Date: 09/11/2023 (No Known Allergies) Date Reviewed: 03/28/2019 Reviewed by: Kika Thomas (Rn), RN - Fully Assessed Reason for Visit: Care Coordination [3491] Cmt: Botox Primary Visit Diagnosis:OAB (overactive bladder) [N32.81] Other Visit Diagnosis:Prophylact ic antibiotic [Z79.2] Order(s):CYSTOSCOPY WHI [[id number]] Order #: [id number] FUTURE onabotulinum toxin type A 100 Units injection (BOTOX)Disp: Rfl: sulfamethoxazole-tri methoprim (BACTRIM DS) 800-160 mg per tabletTake 1 tablet by mouth two times a day for 3 days. Start day before procedure.Disp: 6 tabletRfl: 0 Prescriptions as of 09/20/2023 - sulfamethoxazole-tri methoprim (BACTRIM DS) 800-160 mg per tablet Take [...] Take 1 tablet by mouth once daily. 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 Start day before procedure. Encounter Status:Closed by SAVANA LOYD on 09/11/23 Normal [facility] Absolute lymphocyte countOrd ered By: Daniellekenny Paige on 05-05-2023 Lymphocytes Auto (Unsp spec) [#/Vol] 1.55 10*3/uL 0.83-4.51 [facility] Basophil percentageOrdered B y: Danielle Paige on 05-05-2023 Basophils/100 WBC (Bld) 0.8 % 0-1 [facility] Bilirubin [Mass/Vol] 0.30 mg/dL 0.20-1.00 [facility] Comment on above: For patients on eltr ombopag therapy, use of Dim[place] TBIL is not recommended. Chloride [Moles/Vol] 108 mmol/L 98-107 [facility] Eosinophils/100 WBC (Bld) 3.5 % 0-5 [facility] Glucose [Mass/Vol] 73 mg/dL 74-106 [facility] Neutrophils (Bld) [#/Vol] 3.5 10*3/uL 2.0-7.7 [facility] Neutrophils/100 WBC (Bld) 58.6 % 47-70 [facility] Potassium [Moles/Vol] 3.7 mmol/L 3.5-5.1 [facility] Protein [Mass/Vol] 7.1 g/dL 6.4-8.2 [facility] Sodium [Moles/Vol] 140 mmol/L 136-145 [facility] WBC (Bld) [#/Vol] 6.0 10*3/uL 4.4-11.0 [facility] Blood erythrocytes count (nu mber/volume)Ordered By: Danielle Paige on 05-05-2023 RBC (Bld) [#/Vol] 3.82 10*6/uL 4.2-5.4 [facility] Blood hemoglobin measurement (mass/volume)Ordered By: Danielle Paige on 05-05-2023 Hemoglobin (Bld) [Mass/Vol] 11.9 g/dL 12.0-15. 0 [facility] Blood lymphocytes/100 leukoc ytesOrdered By: Danielle Paige on 05-05-2023 Lymphocytes/100 WBC (Bld) 26.0 % 19-41 [facility] Blood monocytes/100 leukocyt esOrdered By: Danielle Paige on 05-05-2023 Monocytes/100 WBC (Bld) 10.4 % 0-10 [facility] Blood platelet mean volumeOr dered By: Danielle Paige on 05-05-2023 Platelet mean volume (Bld) [Entitic vol] 9.5 fL 6.2-12.0 [facility] Determination of erythrocyte mean corpuscular volume (MCV)Ordered By: Danielle Paige on 05-05-2023 MCV (RBC) [Entitic vol] 99.7 fL 81-99 [facility] Hematocrit Auto (Bld) [Volum e fraction]Ordered By: Danielle Paige on 05-05-2023 Hematocrit (Bld) [Volume fraction] 38.1 % 37-47 [facility] Laboratory - Chemistry and C hemistry - challengeOrdered By: Danielle Paige on 05-05-2023 ALP [Catalytic activity/Vol] 56 U/L 45-117 [facility] ALT [Catalytic activity/Vol] 38 U/L 13-56 [facility] CO2 [Moles/Vol] 23.0 mmol/L 21.0-32.0 [facility] Free T4 [Mass/Vol] 1.03 ng/dL 0.76-1.46 [facility] Globulin (S) [Mass/Vol] 3.7 g/dL 2.2-4.2 [facility] Urea nitrogen/Creatinine [Mass ratio] 23.6 mg/mg 05-05 [facility] Laboratory - Hematology and Cell countsOrdered By: Danielle Paige on 05-05-2023 Erythrocyte distribution width (RBC) [Entitic vol] 51.8 fL 35.1-43.9 [facility] Erythrocyte distribution width (RBC) [Ratio] 14.1 % 11.6-14.6 [facility] Immature granulocytes/100 WBC (Bld) 0.700 % 0.0-0.9 [facility] Comment on above: IG% - Immature Granu locytes (promyelocytes, myelocytes and metamyelocytes) > 1% indicates that a LEFT SHIFT is Present. MCH (RBC) [Entitic mass] 31.2 pg 27.0-32.0 [facility] Nucleated RBC/100 WBC (Bld) [Ratio] 0 % 0-5 [facility] MCHC Auto (RBC) [Mass/Vol]Or dered By: Danielle Paige on 05-05-2023 MCHC (RBC) [Mass/Vol] 31.2 g/dL 32-36 [facility] No Panel InformationOrdered By: Danielle Paige on 05-05-2023 Estimated GFR (MDRD) Amer 61 mL/min >60 [facility] Comment on above: GFR Calc Estimated GFR (MDRD) Non-Af Amer 51 mL/min >60 [facility] Comment on above: Non- GFR Calc Free Triiodothyronine (T3) pg/dL 2.7 pg/mL 2.18-3.98 [facility] Thyroid Stimulating Hormone (TSH) 2.83 uIU/mL 0.358-3.74 [facility] Platelets bldOrdered By: Marnie Paige on 05-05-2023 Platelets (Bld) [#/Vol] 346 10*3/uL 150-450 [facility] Serum or plasma albumin valeri urement (mass/volume)Ordered By: Danielle Paige on 05-05-2023 Albumin [Mass/Vol] 3.4 g/dL 3.2-5.0 [facility] Serum or plasma albumin/glob ulin mass ratioOrdered By: Danielle Paige on 05-05-2023 Albumin/Globulin [Mass ratio] 0.9 {ratio} 0.9-2.4 [facility] Serum or plasma calcium valeri urement (mass/volume)Ordered By: Danielle Paige on 05-05-2023 Calcium [Mass/Vol] 9.2 mg/dL 8.5-10.1 [facility] Serum or plasma creatinine m easurement (mass/volume)Ordered By: Danielle Paige on 05-05-2023 Creatinine [Mass/Vol] 1.10 mg/dL 0.55-1.02 [facility] Comment on above: The validity of the calculated GFR & GFRAA in patients over 70 years has not been determined. Clinical correlation is essential. Serum or plasma urea nitroge n measurement (mass/volume)Ordered By: Danielle Paige on 05-05-2023 Urea nitrogen [Mass/Vol] 26 mg/dL 7-18 [facility] Thin prep Papanicolaou smear with manual screeningOrdered By: Danielle Paige on 05-05-2023 Thin prep Papanicolaou smear with manual screening 49 U/L 15 [facility] Thin prep Papanicolaou smear with manual screening 9 5-15 [facility] Absolute lymphocyte countOrd ered By: Danielle Paige on 03-10-2023 Lymphocytes Auto (Unsp spec) [#/Vol] 1.37 10*3/uL 0.83-4.51 [facility] Basophil percentageOrdered B y: Danielle Paige on 03-10-2023 Basophils/100 WBC (Bld) 0.9 % 0-1 [facility] Bilirubin [Mass/Vol] 0.30 mg/dL 0.20-1.00 [facility] Comment on above: For patients on eltr ombopag therapy, use of Dimension [place] TBIL is not recommended. Chloride [Moles/Vol] 105 mmol/L 98-107 [facility] Eosinophils/100 WBC (Bld) 5.1 % 0-5 [facility] Glucose [Mass/Vol] 82 mg/dL 74-106 [facility] Neutrophils (Bld) [#/Vol] 3.4 10*3/uL 2.0-7.7 [facility] Neutrophils/100 WBC (Bld) 60.4 % 47-70 [facility] Potassium [Moles/Vol] 4.2 mmol/L 3.5-5.1 [facility] Protein [Mass/Vol] 6.6 g/dL 6.4-8.2 [facility] Sodium [Moles/Vol] 139 mmol/L 136-145 [facility] WBC (Bld) [#/Vol] 5.7 10*3/uL 4.4-11.0 [facility] Blood erythrocytes count (nu mber/volume)Ordered By: Danielle Paige on 03-10-2023 RBC (Bld) [#/Vol] 3.65 10*6/uL 4.2-5.4 [facility] Blood hemoglobin measurement (mass/volume)Ordered By: Danielle Paige on 03-10-2023 Hemoglobin (Bld) [Mass/Vol] 11.5 g/dL 12.0-15. 0 [facility] Blood lymphocytes/100 leukoc ytesOrdered By: Danielle Paige on 03-10-2023 Lymphocytes/100 WBC (Bld) 24.1 % 19-41 [facility] Blood monocytes/100 leukocyt esOrdered By: Danielle Paige on 03-10-2023 Monocytes/100 WBC (Bld) 9.0 % 0-10 [facility] Blood platelet mean volumeOr dered By: Danielle Paige on 03-10-2023 Platelet mean volume (Bld) [Entitic vol] 9.1 fL 6.2-12.0 [facility] Determination of erythrocyte mean corpuscular volume (MCV)Ordered By: Danielle Paige on 03-10-2023 MCV (RBC) [Entitic vol] 100.3 fL 81-99 [facility] Hematocrit Auto (Bld) [Volum e fraction]Ordered By: Danielle Paige on 03-10-2023 Hematocrit (Bld) [Volume fraction] 36.6 % 37-47 [facility] Laboratory - Chemistry and C hemistry - challengeOrdered By: Danielle Paige on 03-10-2023 ALP [Catalytic activity/Vol] 58 U/L 45-117 [facility] ALT [Catalytic activity/Vol] 46 U/L 13-56 [facility] CO2 [Moles/Vol] 26.0 mmol/L 21.0-32.0 [facility] Cobalamin (Vitamin B12) [Mass/Vol] 1747 pg/mL 211-911 [facility] Free T4 [Mass/Vol] 1.14 ng/dL 0.76-1.46 [facility] Globulin (S) [Mass/Vol] 3.0 g/dL 2.2-4.2 [facility] Urea nitrogen/Creatinine [Mass ratio] 21.0 mg/mg 10-20 [facility] Laboratory - Hematology and Cell countsOrdered By: Danielle Paige on 03-10-2023 Erythrocyte distribution width (RBC) [Entitic vol] 50.1 fL 35.1-43.9 [facility] Erythrocyte distribution width (RBC) [Ratio] 13.6 % 11.6-14.6 [facility] Immature granulocytes/100 WBC (Bld) 0.500 % 0.0-0.9 [facility] Comment on above: IG% - Immature Granu locytes (promyelocytes, myelocytes and metamyelocytes) > 1% indicates that a LEFT SHIFT is Present. MCH (RBC) [Entitic mass] 31.5 pg 27.0-32.0 [facility] Nucleated RBC/100 WBC (Bld) [Ratio] 0 % 0-5 [facility] MCHC Auto (RBC) [Mass/Vol]Or dered By: Danielle Paige on 03-10-2023 MCHC (RBC) [Mass/Vol] 31.4 g/dL 32-36 [facility] No Panel InformationOrdered By: Danielle Paige on 03-10-2023 Estimated GFR (MDRD) Amer 69 mL/min >60 [facility] Comment on above: GFR Calc Estimated GFR (MDRD) Non-Af Amer 57 mL/min >60 [facility] Comment on above: Non- GFR Calc Free Triiodothyronine (T3) pg/dL 1.7 pg/mL 2.18-3.98 [facility] Thyroid Stimulating Hormone (TSH) 2.78 uIU/mL 0.358-3.74 [facility] Platelets bldOrdered By: Marnie Paige on 03-10-2023 Platelets (Bld) [#/Vol] 289 10*3/uL 150-450 [facility] Serum or plasma albumin valeri urement (mass/volume)Ordered By: Danielle Paige on 03-10-2023 Albumin [Mass/Vol] 3.6 g/dL 3.2-5.0 [facility] Serum or plasma albumin/glob ulin mass ratioOrdered By: Danielle Paige on 03-10-2023 Albumin/Globulin [Mass ratio] 1.2 {ratio} 0.9-2.4 [facility] Serum or plasma calcium valeri urement (mass/volume)Ordered By: Danielle Paige on 03-10-2023 Calcium [Mass/Vol] 9.0 mg/dL 8.5-10.1 [facility] Serum or plasma creatinine m easurement (mass/volume)Ordered By: Danielle Paige on 03-10-2023 Creatinine [Mass/Vol] 1.00 mg/dL 0.55-1.02 [facility] Comment on above: The validity of the calculated GFR & GFRAA in patients over 70 years has not been determined. Clinical correlation is essential. Serum or plasma urea nitroge n measurement (mass/volume)Ordered By: Danielle Paige on 03-10-2023 Urea nitrogen [Mass/Vol] 21 mg/dL 7-18 [facility] Thin prep Papanicolaou smear with manual screeningOrdered By: Danielle Paige on 03-10-2023 Thin prep Papanicolaou smear with manual screening 49 U/L 15-37 [facility] Thin prep Papanicolaou smear with manual screening 8 5-15 [facility] Absolute lymphocyte countOrd ered By: Danielle Paige on 01-26-2023 Lymphocytes Auto (Unsp spec) [#/Vol] 1.25 10*3/uL 0.83-4.51 [facility] Basophil percentageOrdered B y: Danielle Paige on 01-26-2023 Basophils/100 WBC (Bld) 0.6 % 0-1 [facility] Bilirubin [Mass/Vol] 0.30 mg/dL 0.20-1.00 [facility] Comment on above: For patients on eltr ombopag therapy, use of Dimension [place] TBIL is not recommended. Chloride [Moles/Vol] 106 mmol/L 98-107 [facility] Eosinophils/100 WBC (Bld) 4.1 % 0-5 [facility] Glucose [Mass/Vol] 87 mg/dL 74-106 [facility] Neutrophils (Bld) [#/Vol] 4.8 10*3/uL 2.0-7.7 [facility] Neutrophils/100 WBC (Bld) 68.7 % 47-70 [facility] Potassium [Moles/Vol] 5.0 mmol/L 3.5-5.1 [facility] Protein [Mass/Vol] 6.9 g/dL 6.4-8.2 [facility] Sodium [Moles/Vol] 138 mmol/L 136-145 [facility] WBC (Bld) [#/Vol] 7.1 10*3/uL 4.4-11.0 [facility] Blood erythrocytes count (nu mber/volume)Ordered By: Danielle Paige on 01-26-2023 RBC (Bld) [#/Vol] 3.55 10*6/uL 4.2-5.4 [facility] Blood hemoglobin measurement (mass/volume)Ordered By: Danielle Paige on 01-26-2023 Hemoglobin (Bld) [Mass/Vol] 11.4 g/dL 12.0-15. 0 [facility] Blood lymphocytes/100 leukoc ytesOrdered By: Danielle Paige on 01-26-2023 Lymphocytes/100 WBC (Bld) 17.7 % 19-41 [facility] Blood monocytes/100 leukocyt esOrdered By: Danielle Paige on 01-26-2023 Monocytes/100 WBC (Bld) 8.5 % 0-10 [facility] Blood platelet mean volumeOr dered By: Danielle Paige on 01-26-2023 Platelet mean volume (Bld) [Entitic vol] 9.2 fL 6.2-12.0 [facility] Determination of erythrocyte mean corpuscular volume (MCV)Ordered By: Danielle Paige on 01-26-2023 MCV (RBC) [Entitic vol] 100.8 fL 81-99 [facility] Hematocrit Auto (Bld) [Volum e fraction]Ordered By: Danielle Paige on 01-26-2023 Hematocrit (Bld) [Volume fraction] 35.8 % 37-47 [facility] Iron measurement (mass/mass) Ordered By: Danielle Paige on 01-26-2023 Iron (Unsp spec) [Mass/Mass] 60 ug/dL 50-170 [facility] Laboratory - Chemistry and C hemistry - challengeOrdered By: Danielle Paige on 01-26-2023 ALP [Catalytic activity/Vol] 55 U/L 45-117 [facility] ALT [Catalytic activity/Vol] 44 U/L 13-56 [facility] CO2 [Moles/Vol] 24.0 mmol/L 21.0-32.0 [facility] Cobalamin (Vitamin B12) [Mass/Vol] 586 pg/mL 211-911 [facility] Free T4 [Mass/Vol] 1.09 ng/dL 0.76-1.46 [facility] Globulin (S) [Mass/Vol] 3.4 g/dL 2.2-4.2 [facility] Magnesium [Mass/Vol] 2.2 mg/dL 1.6-2.6 [facility] Urea nitrogen/Creatinine [Mass ratio] 21.3 mg/mg 10-20 [facility] Laboratory - Hematology and Cell countsOrdered By: Danielle Paige on 01-26-2023 Erythrocyte distribution width (RBC) [Entitic vol] 53.2 fL 35.1-43.9 [facility] Erythrocyte distribution width (RBC) [Ratio] 14.1 % 11.6-14.6 [facility] Immature granulocytes/100 WBC (Bld) 0.400 % 0.0-0.9 [facility] Comment on above: IG% - Immature Granu locytes (promyelocytes, myelocytes and metamyelocytes) > 1% indicates that a LEFT SHIFT is Present. MCH (RBC) [Entitic mass] 32.1 pg 27.0-32.0 [facility] Nucleated RBC/100 WBC (Bld) [Ratio] 0 % 0-5 [facility] MCHC Auto (RBC) [Mass/Vol]Or dered By: Danielle Paige on 01-26-2023 MCHC (RBC) [Mass/Vol] 31.8 g/dL 32-36 [facility] No Panel InformationOrdered By: Danielle Paige on 01-26-2023 Estimated GFR (MDRD) Amer 63 mL/min >60 [facility] Comment on above: GFR Calc Estimated GFR (MDRD) Non-Af Amer 52 mL/min >60 [facility] Comment on above: Non- GFR Calc Free Triiodothyronine (T3) pg/dL 1.7 pg/mL 2.18-3.98 [facility] Thyroid Stimulating Hormone (TSH) 2.53 uIU/mL 0.358-3.74 [facility] Platelets bldOrdered By: Marnie Paige on 01-26-2023 Platelets (Bld) [#/Vol] 323 10*3/uL 150-450 [facility] Serum or plasma albumin valeri urement (mass/volume)Ordered By: Danielle Paige on 01-26-2023 Albumin [Mass/Vol] 3.5 g/dL 3.2-5.0 [facility] Serum or plasma albumin/glob ulin mass ratioOrdered By: Danielle Paige on 01-26-2023 Albumin/Globulin [Mass ratio] 1.0 {ratio} 0.9-2.4 [facility] Serum or plasma calcium valeri urement (mass/volume)Ordered By: Danielle Paige on 01-26-2023 Calcium [Mass/Vol] 9.0 mg/dL 8.5-10.1 [facility] Serum or plasma creatinine m easurement (mass/volume)Ordered By: Danielle Paige on 01-26-2023 Creatinine [Mass/Vol] 1.08 mg/dL 0.55-1.02 [facility] Comment on above: The validity of the calculated GFR & GFRAA in patients over 70 years has not been determined. Clinical correlation is essential. Serum or plasma urea nitroge n measurement (mass/volume)Ordered By: Danielle Paige on 01-26-2023 Urea nitrogen [Mass/Vol] 23 mg/dL 7-18 [facility] Thin prep Papanicolaou smear with manual screeningOrdered By: Danielle Paige on 01-26-2023 Thin prep Papanicolaou smear with manual screening 44 U/L 15-37 [facility] Thin prep Papanicolaou smear with manual screening 8 5-15 [facility] Culture, urineOrdered By: Dr Ramona Paige on 09-30-2022 Bacteria identified Cx Nom (U) Proteus mirabilis [facility] Absolute lymphocyte countOrd ered By: Dr. Paige on 08-24-2022 Lymphocytes Auto (Unsp spec) [#/Vol] 1.59 10*3/uL 0.83-4.51 [facility] Basophil percentageOrdered B y: Dr. Paige on 08-24-2022 Basophils/100 WBC (Bld) 0.5 % 0-1 [facility] Bilirubin [Mass/Vol] 0.30 mg/dL 0.20-1.00 [facility] Comment on above: For patients on eltr ombopag therapy, use of Dimension [place] TBIL is not recommended. Chloride [Moles/Vol] 106 mmol/L 98-107 [facility] Eosinophils/100 WBC (Bld) 5.5 % 0-5 [facility] Glucose [Mass/Vol] 97 mg/dL 74-106 [facility] Neutrophils (Bld) [#/Vol] 5.2 10*3/uL 2.0-7.7 [facility] Neutrophils/100 WBC (Bld) 66.5 % 47-70 [facility] Potassium [Moles/Vol] 4.4 mmol/L 3.5-5.1 [facility] Protein [Mass/Vol] 7.4 g/dL 6.4-8.2 [facility] Sodium [Moles/Vol] 139 mmol/L 136-145 [facility] WBC (Bld) [#/Vol] 7.8 10*3/uL 4.4-11.0 [facility] Blood erythrocytes count (nu mber/volume)Ordered By: Dr. Paige on 08-24-2022 RBC (Bld) [#/Vol] 4.05 10*6/uL 4.2-5.4 [facility] Blood hemoglobin measurement (mass/volume)Ordered By: Dr. Paige on 08-24-2022 Hemoglobin (Bld) [Mass/Vol] 12.3 g/dL 12.0-15. 0 [facility] Blood lymphocytes/100 leukoc ytesOrdered By: Dr. Paige on 08-24-2022 Lymphocytes/100 WBC (Bld) 20.5 % 19-41 [facility] Blood monocytes/100 leukocyt esOrdered By: Dr. Paige on 08-24-2022 Monocytes/100 WBC (Bld) 6.7 % 0-10 [facility] Blood platelet mean volumeOr dered By: Dr. Paige on 08-24-2022 Platelet mean volume (Bld) [Entitic vol] 10.3 fL 6.2-12.0 [facility] Determination of erythrocyte mean corpuscular volume (MCV)Ordered By: Dr. Paige on 08-24-2022 MCV (RBC) [Entitic vol] 98.0 fL 81-99 [facility] Hematocrit Auto (Bld) [Volum e fraction]Ordered By: Dr. Paige on 08-24-2022 Hematocrit (Bld) [Volume fraction] 39.7 % 37-47 [facility] Laboratory - Chemistry and C hemistry - challengeOrdered By: Dr. Paige on 08-24-2022 ALP [Catalytic activity/Vol] 64 U/L 45-117 [facility] ALT [Catalytic activity/Vol] 22 U/L 13-56 [facility] CO2 [Moles/Vol] 27.0 mmol/L 21.0-32.0 [facility] Globulin (S) [Mass/Vol] 4.1 g/dL 2.2-4.2 [facility] Natriuretic peptide B (Bld) [Mass/Vol] 53.8 pg/mL 0-100 [facility] Urea nitrogen/Creatinine [Mass ratio] 28.6 mg/mg 10-20 [facility] Laboratory - Hematology and Cell countsOrdered By: Dr. Paige on 08-24-2022 Erythrocyte distribution width (RBC) [Entitic vol] 49.8 fL 35.1-43.9 [facility] Erythrocyte distribution width (RBC) [Ratio] 13.7 % 11.6-14.6 [facility] Immature granulocytes/100 WBC (Bld) 0.300 % 0.0-0.9 [facility] Comment on above: IG% - Immature Granu locytes (promyelocytes, myelocytes and metamyelocytes) > 1% indicates that a LEFT SHIFT is Present. MCH (RBC) [Entitic mass] 30.4 pg 27.0-32.0 [facility] Nucleated RBC/100 WBC (Bld) [Ratio] 0 % 0-5 [facility] MCHC Auto (RBC) [Mass/Vol]Or dered By: Dr. Paige on 08-24-2022 MCHC (RBC) [Mass/Vol] 31.0 g/dL 32-36 [facility] No Panel InformationOrdered By: Dr. Paige on 08-24-2022 C-Reactive Protein High Sensitivity 67.30 mg/L <3.00 [facility] Comment on above: Low Relative Risk of CVD <1.0 mg/L Average Relative Risk of CVD 1.0 - 3.0 mg/L High Relative Risk of CVD >3.0 mg/L Estimated GFR (MDRD) Amer 93 mL/min >60 [facility] Comment on above: GFR Calc Estimated GFR (MDRD) Non-Af Amer 77 mL/min >60 [facility] Comment on above: Non- GFR Calc Troponin I High Sensitivity 4 pg/mL 3.0-54.0 [facility] Comment on above: Please Note: New Muna t Units and Gender Specific Reference Ranges. For more information see Policy Stat Procedure [place] High Sensitivity Troponin (TNIH) and attachments. Platelets bldOrdered By: Dr. Paige on 08-24-2022 Platelets (Bld) [#/Vol] 296 10*3/uL 150-450 [facility] Serum or plasma albumin valeri urement (mass/volume)Ordered By: Dr. Paige on 08-24-2022 Albumin [Mass/Vol] 3.3 g/dL 3.2-5.0 [facility] Serum or plasma albumin/glob ulin mass ratioOrdered By: Dr. Paige on 08-24-2022 Albumin/Globulin [Mass ratio] 0.8 {ratio} 0.9-2.4 [facility] Serum or plasma calcium valeri urement (mass/volume)Ordered By: Dr. Paige on 08-24-2022 Calcium [Mass/Vol] 8.6 mg/dL 8.5-10.1 [facility] Serum or plasma creatinine m easurement (mass/volume)Ordered By: Dr. Paige on 08-24-2022 Creatinine [Mass/Vol] 0.77 mg/dL 0.55-1.02 [facility] Comment on above: The validity of the calculated GFR & GFRAA in patients over 70 years has not been determined. Clinical correlation is essential. Serum or plasma urea nitroge n measurement (mass/volume)Ordered By: Dr. Paige on 08-24-2022 Urea nitrogen [Mass/Vol] 22 mg/dL 7-18 [facility] Thin prep Papanicolaou smear with manual screeningOrdered By: Dr. Paige on 08-24-2022 Thin prep Papanicolaou smear with manual screening 19 U/L 15-37 [facility] Thin prep Papanicolaou smear with manual screening 6 5-15 [facility] Progress Noteon 06-27-2022 Progress Note Per chart patient had lung surgery 11/05/20, patient is undergoing lung cancer surveillance w/Dr. Lon Berrios, [facility] Op Noteon 11-16-2020 Op Note PATIENT: MARGIE [...] lobe lung mass. Anesthesia: General endotracheal anesthesia. Strings Teacher: Dr. Rajni Hwang. Clinical History: The patient [...] recovery in stable condition. [employer] Job ID: [id number] Rosemarie Mckeon MD DOD:11/16/2020 09:03 A EE/dsk DOT:11/16/2020 09:35 A Job Number: [id number] Document Number: [id number] cc: Rosemarie Mckeon MD [facility] [address] [address] Normal [facility] Basic Metabolic Panelon 10-16 Urea nitrogen [Mass/Vol] 14 mg/dL Normal 7-20 [facility] Comment on above: Performed By: #### B MP3M, HEMDF #### [address] Anion gap [Moles/Vol] 3 mmol/L Normal 3-13 [facility] Comment on above: Performed By: #### B MP3M, HEMDF #### [address] CO2 [Moles/Vol] 29 mmol/L Normal 22-30 [facility] Comment on above: Performed By: #### B MP3M, HEMDF #### [address] [address] [place], [place] Creatinine [Mass/Vol] 0.70 mg/dL Normal 0.52-1.25 [facility] Comment on above: Performed By: #### B MP3M, HEMDF #### [address] GFR/1.73 sq M.predicted among blacks MDRD (S/P/Bld) [Vol rate/Area] mL/min/{1.73_m2} Normal >60 [facility] Comment on above: Performed By: #### B MP3M, HEMDF #### [address] GFR/1.73 sq M.predicted among non-blacks MDRD (S/P/Bld) [Vol rate/Area] 82.7 mL/min/{1.73_m2} Normal >60 [facility] Comment on above: Result Comment: KDIG O [...] Performed By: #### B MP3M, HEMDF #### [facility] [address] [place], [place] Chloride [Moles/Vol] 105 mmol/L Normal 98-107 [facility] Comment on above: Performed By: #### B MP3M, HEMDF #### [facility] [address] [place], [place] Potassium [Moles/Vol] 4.3 mmol/L Normal 3.5-5.1 [facility] Comment on above: Performed By: #### B MP3M, HEMDF #### [facility] [address] [place], [place] Sodium [Moles/Vol] 136 mmol/L Normal 135-145 [facility] Comment on above: Performed By: #### B MP3M, HEMDF #### [facility] [address] [place], [place] Basic Metabolic PanelOrdered By: Rajni Hwang on 11-09-2020 Calcium [Mass/Vol] 8.8 mg/dL Normal 8.4-10.4 [facility] Work Phone: Comment on above: Performed By: #### B MP3M, HEMDF #### [employer] [address] [place] [address] Glucose [Mass/Vol] 87 mg/dL Normal 70-100 [email or web address] Work Phone: Comment on above: Performed By: #### B MP3M, HEMDF #### [employer] [address] [place] [address] Basic Metabolic Panel w/ Ref song to MGOrdered By: Rajni Hwang on 11-09-2020 Anion gap [Moles/Vol] 3 mmol/L 3 - 13 mmol/L [email or web address] Work Phone: Chloride [Moles/Vol] 105 mmol/L 98 - 10 7 mmol/L [facility] Work Phone: [phone] CO2 [Moles/Vol] 29 mmol/L 22 - 30 mmol/L [facility] Work Phone: [phone] Creatinine [Mass/Vol] 0.7 mg/dL 0.52 - 1.25 mg/dL [facility] Work Phone: EGFR IF NonAfrican Hungarian 82.7 mL/min >60 [facility] Work Phone: Comment on above: KDIGO guidelines [...] MDRD (S/P/Bld) [Vol rate/Area] mL/min/{1.73_m2} >60 mL/min [employer] Work Phone: 1 Potassium [Moles/Vol] 4.3 mmol/L 3.5 - 5.1 mmol/L [email or web address] Work Phone: Sodium [Moles/Vol] 136 mmol/L 135 - 145 mmol/L [email or web address] Work Phone: 1 Urea nitrogen (BldV) [Mass/Vol] 14 mg/dL 7 - 20 mg/dL [email or web address] Work Phone: 1 Test Performed by [facility], [address] [place] [phone] [employer] Work Phone: CBC auto differentialOrdered By: Rajni Hwang on 11-09-2020 Absolute Baso # 0.1 10*3/uL 0.0 - 0.2 10*3/uL [employer] Work Phone: Absolute Neut # 3.8 10*3/uL 1.8 - 7.0 10*3/uL [email or web address] Work Phone: Basophils/100 WBC (Bld) 0.8 % 0.0 - 2.0 % [employer] Work Phone: Eosinophils (Bld) [#/Vol] 0.3 10*3/uL 0. 0 - 0.5 10*3/uL [employer] Work Phone: 1 Eosinophils/100 WBC (Bld) 5.3 % 1.0 - 6.0 % [employer] Work Phone: Granulocytes/100 WBC (Bld) 59.1 % 4 0.0 - 80.0 % [email or web address] Work Phone: 1 Hematocrit (Bld) [Volume fraction] 35.5 % 35.0 - 47.0 % [employer] Work Phone: Hemoglobin.gastrointestinal spec 1 Ql (Stl) 11.8 g/dL 11.7 - 16.0 g/dL [employer] Work Phone: 1 Interpretation and review of laboratory results Abnormal [employer] Work Phone: Lymphocytes (Bld) [#/Vol] 1.8 10*3/uL 1. 0 - 4.3 10*3/uL [employer] Work Phone: 22 Lymphocytes/100 WBC (Bld) 27.9 % 20 .0 - 40.0 % [employer] Work Phone: 1 MCH (RBC) [Entitic mass] 32.0 pg 26. 0 - 34.0 pg [employer] Work Phone: MCHC (RBC) [Mass/Vol] 33.3 % 32.0 - 36.0 % [employer] Work Phone: MCV (RBC) [Entitic vol] 96.1 fL 79.0 - 98.0 fL [employer] Work Phone: Monocytes (Bld) [#/Vol] 0.4 10*3/uL 0.0 - 0.8 10*3/uL [employer] Work Phone: Monocytes/100 WBC (Bld) 6.9 % 2.0 - 10.0 % [employer] Phone: Platelet distribution width (Bld) [Ratio] 13.6 % 11.5 - 14.5 % [employer] Work Phone: Platelet mean volume (Bld) [Entitic vol] 7.9 fL 7.4 - 10.4 fL [employer] Work Phone: Platelets (Bld) [#/Vol] 218 10*3/uL 140 - 440 10*3/uL [employer] Work Phone: RBC (Bld) [#/Vol] 3.70 10*6/uL Low 3.80 - 5.2 0 10*6/uL [employer] Work Phone: WBC (Bld) [#/Vol] 6.4 10*3/uL 3.6 - 10.7 10*3/uL [employer] Work Phone: Test Performed by [facility], [address] [place] [phone] [employer] Work Phone: CR Chest Portableon 11-10-19 21 CR Chest Portable Patient Name: MARGIE FULTON Diagnostic Radiology ACCESSION EXAM DATE/TIME PROCEDURE ORDERING PROVIDER [id number] 11/09/2020 08:12 EDT CR Chest Portable MD HWANG LORNA CPT code 10425 Reason For Exam (CR Chest Portable) s/p [...] Transcribed Date and Time: 11/09/2020 7:51 Normal [facility] ECHO Complete 2D W Doppler W ColorOrdered By: Brian Bonds on 11-09-2020 TRANSTHORACIC ECHOCARDIOGRAM PATIENT: Manjula, STUDY DATE: 11/09/2020 Margie [facility]#: [id number] : 1940 AGE: 80 HT/WT: 165.1 cm (65 65.3 kg (143.7 in) lb) GENDER: F BP: 110 / 79 LOCATION: [facility] PATIENT Inpatient main STATUS: *ORDERING PHYSICIAN: * Brian Bonds *READING PHYSICIAN: El Cardenas, ElRN TRANSFER: Indu Jaimes RDCS, AE, CCT, RCS INDICATIONS: Onset A-Fib. CONCLUSIONS SUMMARY: [...] m/sec --------- LVO (more content not included)... [employer] Work Phone: Devan, [employer] Incoming Cardiology Results From [employer] - 11/09/2020 12:54 PM EDT TRANSTHORACIC ECHOCARDIOGRAM PATIENT: Manjula, STUDY DATE: 11/09/2020 Margie : 1940 AGE: 80 HT/WT: 165.1 cm (65 65.3 kg (143.7 in) lb) GENDER: F BP: 110 / 79 LOCATION: [facility] PATIENT Inpatient main STATUS: *ORDERING PHYSICIAN: * Brian Bonds *READING PHYSICIAN: * Theresa, *RN TRANSFER: * Priyanka Schreiber [facility] [place], Indu CELESTE, CCT, RCS INDICATIONS: Onset A-Fib. [...] 1.9 - 3.5 (more content not included)... [facility] Work Phone: Echo Complete w/wo Contrasto n 11-09-2020 Echo Complete w/wo Contrast Patient Name : MARGIE FULTON Ultrasound ACCESSION EXAM DATE/TIME PROCEDURE ORDERING PROVIDER [id number] 11/09/2020 10:40 EDT Echo Complete w/wo DEOTARE, BRIAN Contrast Reason For Exam (Echo Complete w/wo Contrast) New onset A fib Report TRANSTHORACIC ECHOCARDIOGRAM PATIENT: Manjula STUDY DATE: 11/09/2020 Margie : 1940 AGE: 80 HT/WT: 165.1 cm (65 65.3 kg (143.7 in) lb) GENDER: F BP: 110 / 79 LOCATION: [facility] PATIENT Inpatient main STATUS: *ORDERING PHYSICIAN: * Brian Bonds *READING PHYSICIAN: * Theresa, *RN TRANSFER: El Schreiber [facility] [place], Indu CELESTE, [facility] INDICATIONS: Onset A-Fib. CONCLUSIONS SUMMARY: 1. Left [...] <=2.8 [employer] (more content not included)... Normal [employer] Hemogram w/ Autodiffon 11-09 Abs Baso Cnt 0.1 10*3/uL Normal 0.0-0.2 [facility] Comment on above: Performed By: #### B MP3M, HEMDF #### [place] [address] [address] [place], [place] Abs Neutrophile Cnt 3.8 10*3/uL Normal 1.8-7.0 [facility] Comment on above: Performed By: #### B MP3M, HEMDF #### [place] [address] [address] [place] Basophils/100 WBC (Bld) 0.8 % Normal 0.0-2.0 [facility] Comment on above: Performed By: #### B MP3M, HEMDF #### [place] [address] [place], [place] Eosinophils (Bld) [#/Vol] 0.3 10*3/uL Normal 0.0-0.5 [facility] Comment on above: Performed By: #### B MP3M, HEMDF #### [place] [address] [address] [place] Eosinophils/100 WBC (Bld) 5.3 % Normal 1.0-6.0 [facility] Comment on above: Performed By: #### B MP3M, HEMDF #### [place] [address] [place] Erythrocyte distribution width (RBC) [Ratio] 13.6 % Normal 11.5-14.5 [facility] Comment on above: Performed By: #### B MP3M, HEMDF #### [place] [address] [address] [place] Granulocytes/100 WBC (Bld) 59.1 % Normal 40.0-80.0 [facility] Comment on above: Performed By: #### B MP3M, HEMDF #### [place] [address] [place], [place] Hematocrit (Bld) [Volume fraction] 35.5 % Normal 35.0-47.0 [facility] Comment on above: Performed By: #### B MP3M, HEMDF #### [place] [address] [address] [place] Hemoglobin (Bld) [Mass/Vol] 11.8 g/dL Normal 11.7-16. 0 [facility] Comment on above: Performed By: #### B MP3M, HEMDF #### [facility] [address] [place], [place] Lymphocytes (Bld) [#/Vol] 1.8 10*3/uL Normal 1.0-4.3 [facility] Comment on above: Performed By: #### B MP3M, HEMDF #### [facility] [address] [place] Lymphocytes/100 WBC (Bld) 27.9 % Normal 20.0-40.0 [facility] Comment on above: Performed By: #### B MP3M, HEMDF #### [place] [address] [place] MCH (RBC) [Entitic mass] 32.0 pg Normal 26.0-34.0 [facility] Comment on above: Performed By: #### B MP3M, HEMDF #### [place] [address] [address] [place] MCHC 33.3 % Normal 32.0-36.0 [facility] Comment on above: Performed By: #### B MP3M, HEMDF #### [place] [address] [address] [place] MCV (RBC) [Entitic vol] 96.1 fL Normal 79.0-98.0 [facility] Comment on above: Performed By: #### B MP3M, HEMDF #### [place] [address] [address] [place] Monocytes (Bld) [#/Vol] 0.4 10*3/uL Normal 0.0-0.8 [facility] Comment on above: Performed By: #### B MP3M, HEMDF #### [facility] [address] [place], [place] Monocytes/100 WBC (Bld) 6.9 % Normal 2.0-10.0 [facility] Comment on above: Performed By: #### B MP3M, HEMDF #### [facility] [address] [place], [place] Platelet mean volume (Bld) [Entitic vol] 7.9 fL Normal 7.4-10.4 [facility] Comment on above: Performed By: #### B MP3M, HEMDF #### [facility] [address] [place], [place] Platelets (Bld) [#/Vol] 218 10*3/uL Normal 140-440 [facility] Comment on above: Performed By: #### B MP3M, HEMDF #### [facility] [address] [place] RBC (Bld) [#/Vol] 3.70 10*6/uL Low 3.80-5.20 [facility] Comment on above: Performed By: #### B MP3M, HEMDF #### [facility] [address] [place] WBC (Bld) [#/Vol] 6.4 10*3/uL Normal 3.6-10.7 [facility] Comment on above: Performed By: #### B MP3M, HEMDF #### [facility] [address] [place], [place] XR CHEST PORTABLEOrdered By: Rajni Hwang on 11-09-2020 Patient Name: MARGIE FULTON Diagnostic Radiology ACCESSION EXAM DATE/TIME PROCEDURE ORDERING PROVIDER [id number] 11/09/2020 08:12 EDT CR Chest Portable MD HWANG LORNA CPT code 95512 Reason For Exam (CR Chest Portable) s/p [...] I Transcribed Date and Time: 11/09/2020 7:51 [facility] Work Phone: Devan, [facility] Incoming Radiology Results From [facility] - 11/09/2020 8:12 AM EDT Patient Name: MARGIE FULTON Diagnostic Radiology ACCESSION EXAM DATE/TIME PROCEDURE ORDERING PROVIDER [id number] 11/09/2020 08:12 EDT CR Chest Portable MD HWANG LORNA CPT code 98456 Reason For Exam (CR Chest Portable) s/p [...] I Transcribed Date and Time: 11/09/2020 7:51 [facility] Work Phone: Add On Lab TestOrdered By: Oneyda Sheridan on 04-25-2021 Add On see comment [facility] Work Phone: Comment on above: added on mag. cannot add on ionized calcium. must be done on unspun green top tube. 11/08/2020 01:12 Test Performed by [facility], [address] [place] [address] [facility] Work Phone: Add on test from HISon 11-08 Add on test from HIS see comment Normal [facility] Comment on above: Result Comment: adde d on mag. cannot add on ionized calcium. must be done on unspun green top tube. 11/08/2020 01:12 Performed By: #### A DDON #### [facility] [address] [place] [address] Basic Metabolic Panelon 10-16 Anion gap [Moles/Vol] 6 mmol/L Normal 3-13 [facility] Comment on above: Performed By: #### Oneyda G3, HEMDF, BMP3M #### [facility] [employer] [address] [place] [address] Calcium [Mass/Vol] 8.8 mg/dL Normal 8.4-10.4 [facility] Comment on above: Performed By: #### Oneyda G3, HEMDF, BMP3M #### [address] CO2 [Moles/Vol] 26 mmol/L Normal 22-30 [facility] Comment on above: Performed By: #### Oneyda G3, HEMDF, BMP3M #### [facility] [address] [place] [address] Creatinine [Mass/Vol] 0.66 mg/dL Normal 0.52-1.25 [facility] Comment on above: Performed By: #### Oneyda G3, HEMDF, BMP3M #### [facility] [employer] [address] GFR/1.73 sq M.predicted among blacks MDRD (S/P/Bld) [Vol rate/Area] mL/min/{1.73_m2} Normal >60 [facility] Comment on above: Performed By: #### Oneyda G3, HEMDF, BMP3M #### [facility] [address] [place] [address] GFR/1.73 sq M.predicted among non-blacks MDRD (S/P/Bld) [Vol rate/Area] 84.3 mL/min/{1.73_m2} Normal >60 [facility] Comment on above: Result Comment: KDIG O [...] By: #### M G3, HEMDF, BMP3M #### [facility] [address] [place] Glucose [Mass/Vol] 103 mg/dL High 70-100 [facility] Comment on above: Performed By: #### M G3, HEMDF, BMP3M #### [facility] [address] [place] [address] Urea nitrogen [Mass/Vol] 12 mg/dL Normal 7-20 [facility] Comment on above: Performed By: #### M G3, HEMDF, BMP3M #### [facility] [address] [place] [address] Chloride [Moles/Vol] 105 mmol/L Normal 98-107 [facility] Comment on above: Performed By: #### M G3, HEMDF, BMP3M #### [facility] [address] [place] [address] Potassium [Moles/Vol] 3.7 mmol/L Normal 3.5-5.1 [facility] Comment on above: Performed By: #### M G3, HEMDF, BMP3M #### [facility] [address] [place] [address] Sodium [Moles/Vol] 137 mmol/L Normal 135-145 [facility] Comment on above: Performed By: #### M G3, HEMDF, BMP3M #### [facility] [address] [place] [address] Basic Metabolic Panel w/ Ref song to MGOrdered By: Rajni Hwang on 11-08-2020 Anion gap [Moles/Vol] 6 mmol/L 3 - 13 mmol/L [facility] Work Phone: Calcium [Mass/Vol] 8.8 mg/dL 8.4 - 10. 4 mg/dL [facility] Work Phone: Chloride [Moles/Vol] 105 mmol/L 98 - 10 7 mmol/L [facility] Work Phone: CO2 [Moles/Vol] 26 mmol/L 22 - 30 mmol/L [facility] Work Phone: Creatinine [Mass/Vol] 0.66 mg/dL 0.52 - 1.25 mg/dL [facility] Work Phone: EGFR IF NonAfrican Hungarian 84.3 mL/min >60 [facility] Work Phone: Comment on above: KDIGO guidelines [...] MDRD (S/P/Bld) [Vol rate/Area] mL/min/{1.73_m2} >60 mL/min [facility] Work Phone: Glucose [Mass/Vol] 103 mg/dL High 70 - 100 mg/dL [facility] Work Phone: [phone] Potassium [Moles/Vol] 3.7 mmol/L 3.5 - 5.1 mmol/L [facility] Work Phone: [phone] Sodium [Moles/Vol] 137 mmol/L 135 - 145 mmol/L [facility] Work Phone: Urea nitrogen (BldV) [Mass/Vol] 12 mg/dL 7 - 20 mg/dL [facility] Work Phone: [phone] CBC auto differentialOrdered By: Rajni Hwang on 11-08-2020 Absolute Neut # 4.8 10*3/uL 1.8 - 7.0 10*3/uL [facility] Work Phone: [phone] Hemoglobin.gastrointestinal spec 1 Ql (Stl) 12.0 g/dL 11.7 - 16.0 g/dL [facility] Work Phone: [phone] CR Chest Portableon 11-09-19 21 CR Chest Portable Patient Name: MARGIE FULTON Diagnostic Radiology ACCESSION EXAM DATE/TIME PROCEDURE ORDERING PROVIDER [id number] 11/08/2020 07:07 EDT CR Chest Portable MD HWANG LORNA CPT code 28680 Reason For Exam (CR Chest Portable) s/p R thora Report EXAM TYPE: RADIOLOGIC EXAMINATION, CHEST, SINGLE VIEW FRONTAL (CXR SINGLE VIEW) EXAM DATE AND TIME: 11/08/2020 7:07 AM EDT INDICATION: Thoracentesis COMPARISON: 11/07/2020 TECHNIQUE: A single frontal view of the thorax was obtained and reviewed. Special views: None. IMPRESSION: 1. Lines/Tubes/Devices/ Hardware: Right chest tube removed.. 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 - 11/08/2020 9:31 PM EDT [facility] Test Date: 2020-11-07 Pat Name: MARGIE FULTON Department: 1A6 Room: [facility] Gender: F Logistics Supply Officer: KYLIE : 1940 Requested By: ROSEMARIE MCKEON Order Number: [id number] Reading : Emmanuel Goldberg Intervals [place] Rate: 148 P: MI: QRS: 47 QRSD: 91 T: 224 QT: 260 QTc: 409 Interpretive Statements Atrial fibrillation with rapid V-rate Abnormal R-wave progression, early transition Repolarization abnormality, prob rate related Electronically Signed On 11-08-2020 21:29:59 EDT by Emmanuel Tejeda Phone: Hemogram w/ Autodiff[employer] 11-08 Abs Baso Cnt 0.0 10*3/uL Normal 0.0-0.2 [facility] Comment on above: Performed By: #### M G3, HEMDF, BMP3M #### [place] [address] [address] [place] Abs Neutrophile Cnt 4.8 10*3/uL Normal 1.8-7.0 [facility] Comment on above: Performed By: #### M G3, HEMDF, BMP3M #### [place] [address] [place] Erythrocyte distribution width (RBC) [Ratio] 13.4 % Normal 11.5-14.5 [facility] Comment on above: Performed By: #### M G3, HEMDF, BMP3M #### [place] [address] [place] Hemoglobin (Bld) [Mass/Vol] 12.0 g/dL Normal 11.7-16. 0 [facility] Comment on above: Performed By: #### M G3, HEMDF, BMP3M #### [place] [address] [address] [place] MCHC 33.7 % Normal 32.0-36.0 [facility] Comment on above: Performed By: #### M G3, HEMDF, BMP3M #### [place] [address] [place] Hemogram w/ AutodiffOrdered By: Rajni Hwang on 11-08-2020 Eosinophils (Bld) [#/Vol] 0.2 10*3/uL Normal 0.0-0.5 [facility] Work Phone: Comment on above: Performed By: #### M G3, HEMDF, BMP3M #### [place] [address] [place] Eosinophils/100 WBC (Bld) 2.1 % Normal 1.0-6.0 [facility] Work Phone: Comment on above: Performed By: #### M G3, HEMDF, BMP3M #### [facility] [address] [place] Granulocytes/100 WBC (Bld) 64.7 % Normal 40.0-80.0 [facility] Work Phone: Comment on above: Performed By: #### M G3, HEMDF, BMP3M #### [facility] [address] [place] Hematocrit (Bld) [Volume fraction] 35.7 % Normal 35.0-47.0 [facility] Work Phone: 1 Comment on above: Performed By: #### M G3, HEMDF, BMP3M #### [facility] [address] [place] Lymphocytes (Bld) [#/Vol] 1.8 10*3/uL Normal 1.0-4.3 [facility] Work Phone: Comment on above: Performed By: #### M G3, HEMDF, BMP3M #### [facility] [address] [place] Lymphocytes/100 WBC (Bld) 23.5 % Normal 20.0-40.0 [facility] Work Phone: 1 Comment on above: Performed By: #### M G3, HEMDF, BMP3M #### [facility] [address] [place] MCH (RBC) [Entitic mass] 32.2 pg Normal 26.0-34.0 [facility] Work Phone: Comment on above: Performed By: #### M G3, HEMDF, BMP3M #### [facility] [address] [place] MCV (RBC) [Entitic vol] 95.5 fL Normal 79.0-98.0 [facility] Work Phone: Comment on above: Performed By: #### M G3, HEMDF, BMP3M #### [employer] [place] [address] [address] [place], [place] Monocytes (Bld) [#/Vol] 0.7 10*3/uL Normal 0.0-0.8 [facility] Work Phone: Comment on above: Performed By: #### Oneyda G3, HEMDF, BMP3M #### [employer] [facility] [address] [place] Monocytes/100 WBC (Bld) 9.1 % Normal 2.0-10.0 [facility] Work Phone: [phone] Comment on above: Performed By: #### Oneyda G3, HEMDF, BMP3M #### [employer] [facility] [address] [place] Platelet mean volume (Bld) [Entitic vol] 7.8 fL Normal 7.4-10.4 [facility] Work Phone: [phone] Comment on above: Performed By: #### Oneyda G3, HEMDF, BMP3M #### [facility] [employer] [facility] [address] [place] Platelets (Bld) [#/Vol] 202 10*3/uL Normal 140-440 [facility] Work Phone: [phone] Comment on above: Performed By: #### Oneyda G3, HEMDF, BMP3M #### [facility] [employer] [facility] [address] [place] RBC (Bld) [#/Vol] 3.74 10*6/uL Low 3.80-5.20 [facility] Work Phone: [phone] Comment on above: Performed By: #### Oneyda G3, HEMDF, BMP3M #### [employer] [facility] [address] [place] Magnesiumon 11-08-2020 Magnesium [Mass/Vol] 2.2 mg/dL Normal 1.6-2.3 [facility] [employer] Comment on above: Performed By: #### Oneyda G3, HEMDF, BMP3M #### [facility] [employer] [facility] [address] [place] MagnesiumOrdered By: Rajni rosado on 11-08-2020 Magnesium [Mass/Vol] 2.2 mg/dL 1.6 - 2 .3 mg/dL [facility] Work Phone: Test Performed by [facility], [address] [place] [phone] [facility] Work Phone: No Panel InformationOrdered By: Rajni Hwang on 11-08-2020 Interpretation and review of laboratory results Abnormal [facility] Work Phone: Test Performed by [facility], [address] [place] [phone] [facility] Work Phone: XR CHEST PORTABLEOrdered By: Rajni Hwang on 11-08-2020 Patient Name: MARGIE FULTON Diagnostic Radiology ACCESSION EXAM DATE/TIME PROCEDURE ORDERING PROVIDER [id number] 11/08/2020 07:07 EDT CR Chest Portable MD HWANG LORNA CPT code 36994 Reason For Exam (CR Chest Portable) s/p R thora Report EXAM TYPE: RADIOLOGIC EXAMINATION, CHEST, SINGLE VIEW FRONTAL (CXR SINGLE VIEW) EXAM DATE AND TIME: 11/08/2020 7:07 AM EDT INDICATION: Thoracentesis COMPARISON: 11/07/2020 TECHNIQUE: A single frontal view of the thorax was obtained and reviewed. Special views: None. IMPRESSION: 1. Lines/Tubes/Devices/ Hardware: Right chest tube removed.. Please confirm position/function [...] JOHN Transcribed Date and Time: 11/08/2020 8:47 [facility] Work Phone: Devan, [facility] Incoming Radiology Results From [facility] 11/08/2020 8:50 AM EDT Patient Name: MARGIE FULTON Diagnostic Radiology ACCESSION EXAM DATE/TIME PROCEDURE ORDERING PROVIDER [id number] 11/08/2020 07:07 EDT CR Chest Portable MD HWANG LORNA CPT code 85377 Reason For Exam (CR Chest Portable) s/p R thora Report EXAM TYPE: RADIOLOGIC EXAMINATION, CHEST, SINGLE VIEW FRONTAL (CXR SINGLE VIEW) EXAM DATE AND TIME: 11/08/2020 7:07 AM EDT INDICATION: Thoracentesis COMPARISON: 11/07/2020 TECHNIQUE: A single frontal view of the thorax was obtained and reviewed. Special views: None. IMPRESSION: 1. Lines/Tubes/Devices/ Hardware: Right chest tube removed.. Please confirm position/function [...] JOHN Transcribed Date and Time: 11/08/2020 8:47 [facility] Work Phone: Basic Metabolic Panelon 04-2 Calcium [Mass/Vol] 8.4 mg/dL Normal 8.4-10.4 [facility] Comment on above: Performed By: #### B MP3M, HEMDF #### [facility] [address] [address] Glucose [Mass/Vol] 96 mg/dL Normal 70-100 [facility] Comment on above: Performed By: #### B MP3M, HEMDF #### [facility] [address] [place] [address] Anion gap [Moles/Vol] 5 mmol/L Normal 3-13 [facility] Comment on above: Performed By: #### B MP3M, HEMDF #### [facility] [address] [place] [address] CO2 [Moles/Vol] 26 mmol/L Normal 22-30 [facility] Comment on above: Performed By: #### B MP3M, HEMDF #### [facility] [address] [place] [address] Creatinine [Mass/Vol] 0.59 mg/dL Normal 0.52-1.25 [facility] Comment on above: Performed By: #### B MP3M, HEMDF #### [facility] [address] [place] [address] GFR/1.73 sq M.predicted among blacks MDRD (S/P/Bld) [Vol rate/Area] mL/min/{1.73_m2} Normal >60 [facility] Comment on above: Performed By: #### B MP3M, HEMDF #### [facility] [address] [place] [address] GFR/1.73 sq M.predicted among non-blacks MDRD (S/P/Bld) [Vol rate/Area] 87.5 mL/min/{1.73_m2} Normal >60 [facility] Comment on above: Result Comment: KDIG O [...] Performed By: #### B MP3M, HEMDF #### [facility] [address] [place] [address] [place], [place] Urea nitrogen [Mass/Vol] 15 mg/dL Normal 7-20 [facility] Comment on above: Performed By: #### B MP3M, HEMDF #### [facility] [address] [place], [place] Chloride [Moles/Vol] 103 mmol/L Normal 98-107 [facility] Comment on above: Performed By: #### B MP3M, HEMDF #### [facility] [address] [place], [place] Potassium [Moles/Vol] 4.0 mmol/L Normal 3.5-5.1 [facility] Comment on above: Performed By: #### B MP3M, HEMDF #### [facility] [address] [place], [place] Sodium [Moles/Vol] 133 mmol/L Low 135-145 [facility] Comment on above: Performed By: #### B MP3M, HEMDF #### [facility] [address] [place], [place] Basic Metabolic Panel w/ Ref song to MGOrdered By: Rajni Hwang on 11-07-2020 Anion gap [Moles/Vol] 5 mmol/L 3 - 13 mmol/L [facility] Work Phone: Calcium [Mass/Vol] 8.4 mg/dL 8.4 - 10. 4 mg/dL [facility] Work Phone: Chloride [Moles/Vol] 103 mmol/L 98 - 10 7 mmol/L [facility] Work Phone: CO2 [Moles/Vol] 26 mmol/L 22 - 30 mmol/L [facility] Work Phone: Creatinine [Mass/Vol] 0.59 mg/dL 0.52 - 1.25 mg/dL [facility] Work Phone: EGFR IF NonAfrican Hungarian 87.5 mL/min >60 [facility] Work Phone: [phone] Comment on above: KDIGO guidelines pro vide [...] MDRD (S/P/Bld) [Vol rate/Area] mL/min/{1.73_m2} >60 mL/min [employer] Work Phone: [phone] Glucose [Mass/Vol] 96 mg/dL 70 - 100 mg/dL [employer] Work Phone: [phone] Interpretation and review of laboratory results Abnormal [employer] Work Phone: [phone] Potassium [Moles/Vol] 4.0 mmol/L 3.5 - 5.1 mmol/L [employer] Work Phone: [phone] Sodium [Moles/Vol] 133 mmol/L Low 135 - 145 mmol/L [employer] Work Phone: [phone] Urea nitrogen (BldV) [Mass/Vol] 15 mg/dL 7 - 20 mg/dL [employer] Work Phone: [phone] Test Performed by [facility], [address] [place] [address] [employer] Work Phone: [phone] CBC auto differentialOrdered By: Rajni Hwang on 11-07-2020 Absolute Neut # 5.5 10*3/uL 1.8 - 7.0 10*3/uL [employer] Work Phone: [phone] Eosinophils (Bld) [#/Vol] 0.1 10*3/uL 0. 0 - 0.5 10*3/uL [email or web address] Work Phone: [phone] Eosinophils/100 WBC (Bld) 1.4 % 1.0 - 6.0 % [email or web address] Work Phone: [phone] Granulocytes/100 WBC (Bld) 73.3 % 4 0.0 - 80.0 % [email or web address] Work Phone: Hematocrit (Bld) [Volume fraction] 35.2 % 35.0 - 47.0 % [email or web address] Work Phone: Hemoglobin.gastrointestinal spec 1 Ql (Stl) 11.9 g/dL 11.7 - 16.0 g/dL [email or web address] Work Phone: [phone] Interpretation and review of laboratory results Abnormal [employer] Work Phone: 1 Lymphocytes (Bld) [#/Vol] 1.3 10*3/uL 1. 0 - 4.3 10*3/uL [employer] Work Phone: Lymphocytes/100 WBC (Bld) 17.2 % Low 20 .0 - 40.0 % [email or web address] Work Phone: 1 MCH (RBC) [Entitic mass] 32.0 pg 26. 0 - 34.0 pg [email or web address] Work Phone: MCV (RBC) [Entitic vol] 95.0 fL 79.0 - 98.0 fL [email or web address] Work Phone: Monocytes (Bld) [#/Vol] 0.6 10*3/uL 0.0 - 0.8 10*3/uL [email or web address] Work Phone: [phone] Monocytes/100 WBC (Bld) 7.5 % 2.0 - 10.0 % [email or web address] Work Phone: Platelet mean volume (Bld) [Entitic vol] 7.6 fL 7.4 - 10.4 fL [email or web address] Work Phone: Platelets (Bld) [#/Vol] 194 10*3/uL 140 - 440 10*3/uL [email or web address] Work Phone: RBC (Bld) [#/Vol] 3.71 10*6/uL Low 3.80 - 5.2 0 10*6/uL [facility] Work Phone: [facility], [address] [place] [address] [facility] Work Phone: CR Chest Portableon 11-08-19 21 CR Chest Portable Patient Name: MARGIE FULTON Diagnostic Radiology ACCESSION EXAM DATE/TIME PROCEDURE ORDERING PROVIDER [id number] 11/07/2020 07:57 EDT CR Chest Portable MD HWANG LORNA CPT code 33619 Reason For Exam (CR Chest Portable) s/p [...] Transcribed Date and Time: 11/07/2020 8:43 Normal [facility] Hemogram w/ Autodiffon 11-07 Abs Baso Cnt 0.0 10*3/uL Normal 0.0-0.2 [facility] Comment on above: Performed By: #### B MP3M, HEMDF #### [facility] [address] [place] [address] Abs Neutrophile Cnt 5.5 10*3/uL Normal 1.8-7.0 [facility] Comment on above: Performed By: #### B MP3M, HEMDF #### [facility] [address] [place] [address] Eosinophils (Bld) [#/Vol] 0.1 10*3/uL Normal 0.0-0.5 [facility] Comment on above: Performed By: #### B MP3Oneyda, HEMDF #### [facility] [address] [place] [address] Eosinophils/100 WBC (Bld) 1.4 % Normal 1.0-6.0 [facility] Comment on above: Performed By: #### B MP3Oneyda, HEMDF #### [place] [address] [place], [place] Erythrocyte distribution width (RBC) [Ratio] 13.4 % Normal 11.5-14.5 [facility] Comment on above: Performed By: #### B MP3Oneyda, HEMDF #### [place] [address] [place], [place] Granulocytes/100 WBC (Bld) 73.3 % Normal 40.0-80.0 [facility] Comment on above: Performed By: #### B MP3Oneyda, HEMDF #### [place] [address] [place], [place] Hematocrit (Bld) [Volume fraction] 35.2 % Normal 35.0-47.0 [facility] Comment on above: Performed By: #### B MP3Oneyda, HEMDF #### [place] [address] [place], [place] Hemoglobin (Bld) [Mass/Vol] 11.9 g/dL Normal 11.7-16. 0 [facility] Comment on above: Performed By: #### B MP3M, HEMDF #### [place] [address] [place], [place] Lymphocytes (Bld) [#/Vol] 1.3 10*3/uL Normal 1.0-4.3 [facility] Comment on above: Performed By: #### B MP3M, HEMDF #### [place] [address] [place] [address] Lymphocytes/100 WBC (Bld) 17.2 % Low 20.0-40.0 [facility] Comment on above: Performed By: #### B MP3M, HEMDF #### [facility] [address] [place], [place] MCH (RBC) [Entitic mass] 32.0 pg Normal 26.0-34.0 [facility] Comment on above: Performed By: #### B MP3M, HEMDF #### [facility] [address] [place], [place] MCHC 33.7 % Normal 32.0-36.0 [facility] Comment on above: Performed By: #### B MP3M, HEMDF #### [facility] [address] [place], [place] MCV (RBC) [Entitic vol] 95.0 fL Normal 79.0-98.0 [facility] Comment on above: Performed By: #### B MP3M, HEMDF #### [place] [address] [place], [place] Monocytes (Bld) [#/Vol] 0.6 10*3/uL Normal 0.0-0.8 [facility] Comment on above: Performed By: #### B MP3M, HEMDF #### [facility] [address] [place], [place] Monocytes/100 WBC (Bld) 7.5 % Normal 2.0-10.0 [facility] Comment on above: Performed By: #### B MP3M, HEMDF #### [facility] [address] [place], [place] Platelet mean volume (Bld) [Entitic vol] 7.6 fL Normal 7.4-10.4 [facility] Comment on above: Performed By: #### B MP3M, HEMDF #### [facility] [address] [place], [place] Platelets (Bld) [#/Vol] 194 10*3/uL Normal 140-440 [facility] Comment on above: Performed By: #### B MP3M, HEMDF #### [facility] [address] [place], [place] RBC (Bld) [#/Vol] 3.71 10*6/uL Low 3.80-5.20 [facility] Comment on above: Performed By: #### B MP3M, HEMDF #### [employer] [address] Hemogram w/ AutodiffOrdered By: Rajni Hwang on 11-07-2020 Basophils/100 WBC (Bld) 0.6 % Normal 0.0-2.0 [facility] Work Phone: [phone] Comment on above: Performed By: #### M G3, HEMDF, BMP3M #### [facility] [address] [place], [place] Performed By: #### B MP3M, HEMDF #### [facility] [address] [place] [address] WBC (Bld) [#/Vol] 7.5 10*3/uL Normal 3.6-10.7 [facility] Work Phone: [phone] Comment on above: Performed By: #### M G3, HEMDF, BMP3M #### [facility] [address] [place], [place] Performed By: #### B MP3M, HEMDF #### [facility] [address] [place] [address] Laboratory - Hematology and Cell countsOrdered By: Rajni Hwang on 11-07-2020 MCHC (RBC) [Mass/Vol] 33.7 % 32.0 - 36.0 % [facility] Work Phone: [phone] Platelet distribution width (Bld) [Ratio] 13.4 % 11.5 - 14.5 % [facility] Work Phone: [phone] Panel InformationOrdered By: Rajni Hwang on 11-07-2020 Absolute Baso # 0.0 10*3/uL 0.0 - 0.2 10*3/uL [facility] Work Phone: [phone] XR CHEST PORTABLEOrdered By: Rajni Hwang on 11-07-2020 Patient Name: MARGIE FULTON Diagnostic Radiology ACCESSION EXAM DATE/TIME PROCEDURE ORDERING PROVIDER [id number] 11/07/2020 07:57 EDT CR Chest Portable MD HWANG LORNA CPT code 84921 Reason For Exam (CR Chest Portable) s/p [...] RISA Transcribed Date and Time: 11/07/2020 8:43 [facility] Work Phone: Devan, [facility] Incoming Radiology Results From [facility] - 11/07/2020 8:45 AM EDT [facility]: [id number] Radiology ACCESSION EXAM DATE/TIME PROCEDURE ORDERING PROVIDER [id number] 11/07/2020 07:57 EDT CR Chest Portable MD HWANG LORNA CPT code 04260 Reason For Exam (CR Chest Portable) s/p [...] RISA Transcribed Date and Time: 11/07/2020 8:43 [facility] Work Phone: Basic Metabolic Panelon 10-16 Anion gap [Moles/Vol] 7 mmol/L Normal 3-13 [facility] Comment on above: Performed By: #### B MP3M, HEMDF #### [facility] [address] [place] [address] Calcium [Mass/Vol] 8.2 mg/dL Low 8.4-10.4 [facility] Comment on above: Performed By: #### B MP3M, HEMDF #### [facility] [address] [place] [address] CO2 [Moles/Vol] 23 mmol/L Normal 22-30 [facility] Comment on above: Performed By: #### B MP3M, HEMDF #### [facility] [address] [place] [address] Glucose [Mass/Vol] 151 mg/dL High 70-100 [facility] Comment on above: Performed By: #### B MP3M, HEMDF #### [facility] [address] [place] [address] Urea nitrogen [Mass/Vol] 21 mg/dL High 7-20 [facility] Comment on above: Performed By: #### B MP3M, HEMDF #### [facility] [address] [place] [address] Creatinine [Mass/Vol] 0.53 mg/dL Normal 0.52-1.25 [facility] Comment on above: Performed By: #### B MP3M, HEMDF #### [facility] [address] [place] [address] eGFR OTHER > 90.0 Normal >60 [facility] Comment on above: Result Comment: KDIG O [...] Performed By: #### B MP3M, HEMDF #### [place] [address] [place], [place] GFR/1.73 sq M.predicted among blacks MDRD (S/P/Bld) [Vol rate/Area] mL/min/{1.73_m2} Normal >60 [facility] Comment on above: Performed By: #### Karen MP3M, HEMDF #### [place] [address] [place], [place] Potassium [Moles/Vol] 4.1 mmol/L Normal 3.5-5.1 [facility] Comment on above: Performed By: #### Karen MP3M, HEMDF #### [place] [address] [place], [place] Sodium [Moles/Vol] 138 mmol/L Normal 135-145 [facility] Comment on above: Performed By: #### B MP3M, HEMDF #### [place] [address] [place], [place] Basic Metabolic PanelOrdered By: Rajni Hwang on 11-06-2020 Chloride [Moles/Vol] 108 mmol/L High 98-107 [facility] Work Phone: Comment on above: Performed By: #### B MP3M, HEMDF #### [place] [address] [place], [place] Basic Metabolic Panel w/ Ref song to MGOrdered By: Rajni Hwang on 11-06-2020 Anion gap [Moles/Vol] 7 mmol/L 3 - 13 mmol/L [facility] Work Phone: [phone] Calcium [Mass/Vol] 8.2 mg/dL Low 8.4 - 10. 4 mg/dL [facility] Work Phone: [phone] CO2 [Moles/Vol] 23 mmol/L 22 - 30 mmol/L [facility] Work Phone: [phone] Creatinine [Mass/Vol] 0.53 mg/dL 0.52 - 1.25 mg/dL [facility] Work Phone: [phone] EGFR IF NonAfrican Hungarian >90.0 >60 mL/m in [facility] Work Phone: [phone] Comment on above: KDIGO guidelines pro vide [...] MDRD (S/P/Bld) [Vol rate/Area] mL/min/{1.73_m2} >60 mL/min [facility] Work Phone: [phone] Glucose [Mass/Vol] 151 mg/dL High 70 - 100 mg/dL [facility] Work Phone: [phone] Interpretation and review of laboratory results Abnormal [facility] Work Phone: [phone] Potassium [Moles/Vol] 4.1 mmol/L 3.5 - 5.1 mmol/L [facility] Work Phone: [phone] Sodium [Moles/Vol] 138 mmol/L 135 - 145 mmol/L [facility] Work Phone: Urea nitrogen (BldV) [Mass/Vol] 21 mg/dL High 7 - 20 mg/dL [email or web address] Work Phone: Test Performed by [facility], [address] [place] [address] [employer] Work Phone: CBC auto differentialOrdered By: Rajni Hwang on 11-06-2020 Absolute Baso # 0.0 10*3/uL 0.0 - 0.2 10*3/uL [email or web address] Work Phone: [phone] Absolute Neut # 8.9 10*3/uL High 1.8 - 7.0 10*3/uL [employer] Work Phone: Basophils/100 WBC (Bld) 0.3 % 0.0 - 2.0 % [employer] Work Phone: Eosinophils (Bld) [#/Vol] 0.0 10*3/uL 0. 0 - 0.5 10*3/uL [employer] Work Phone: Eosinophils/100 WBC (Bld) 0.0 % Low 1.0 - 6.0 % [employer] Work Phone: Granulocytes/100 WBC (Bld) 92.3 % High 4 0.0 - 80.0 % [employer] Work Phone: Hematocrit (Bld) [Volume fraction] 38.0 % 35.0 - 47.0 % [employer] Work Phone: Hemoglobin.gastrointestinal spec 1 Ql (Stl) 12.7 g/dL 11.7 - 16.0 g/dL [employer] Work Phone: Interpretation and review of laboratory results Abnormal [employer] Work Phone: Lymphocytes (Bld) [#/Vol] 0.4 10*3/uL Low 1. 0 - 4.3 10*3/uL [employer] Work Phone: Lymphocytes/100 WBC (Bld) 4.5 % Low 20 .0 - 40.0 % [employer] Work Phone: MCH (RBC) [Entitic mass] 31.7 pg 26. 0 - 34.0 pg [employer] Work Phone: [phone] MCHC (RBC) [Mass/Vol] 33.3 % 32.0 - 36.0 % [employer] Work Phone: [phone] MCV (RBC) [Entitic vol] 95.0 fL 79.0 - 98.0 fL [employer] Work Phone: Monocytes (Bld) [#/Vol] 0.3 10*3/uL 0.0 - 0.8 10*3/uL [employer] Work Phone: [phone] Monocytes/100 WBC (Bld) 2.9 % 2.0 - 10.0 % [employer] Phone: [phone] Platelet distribution width (Bld) [Ratio] 13.5 % 11.5 - 14.5 % [employer] Phone: [phone] Platelet mean volume (Bld) [Entitic vol] 8.3 fL 7.4 - 10.4 fL [employer] Phone: 22 Platelets (Bld) [#/Vol] 202 10*3/uL 140 - 440 10*3/uL [employer] Work Phone: RBC (Bld) [#/Vol] 4.00 10*6/uL 3.80 - 5.2 0 10*6/uL [employer] Work Phone: [phone] WBC (Bld) [#/Vol] 9.7 10*3/uL 3.6 - 10.7 10*3/uL [employer] Work Phone: [phone] Test Performed by [facility], [address] [place] [address] [employer] Work Phone: [phone] CR Chest Portableon 11-07-19 21 CR Chest Portable Patient Name: MARGIE FULTON Diagnostic Radiology ACCESSION EXAM DATE/TIME PROCEDURE ORDERING PROVIDER [id number] 11/06/2020 06:18 EDT CR Chest Portable MD HWANG LORNA CPT code 39791 Reason For Exam (CR Chest Portable) s/p [...] right lung base. Report Dictated on Workstation: [facility] Final Dictated: 11/06/2020 6:31 am Dictating Physician: MD COREAS JEFFREY Signed Date and Time: 11/06/2020 6:32 am Signed by: MD COREAS JEFFREY Transcribed Date and Time: 11/06/2020 6:31 Normal [facility] Hemogram w/ Autodiffon 11-06 Abs Baso Cnt 0.0 10*3/uL Normal 0.0-0.2 [facility] Comment on above: Performed By: #### B MP3M, HEMDF #### [facility] [address] [place] [address] Abs Neutrophile Cnt 8.9 10*3/uL High 1.8-7.0 [facility] Comment on above: Performed By: #### Karen MP3M, HEMDF #### [facility] [address] [place] [address] Basophils/100 WBC (Bld) 0.3 % Normal 0.0-2.0 [facility] Comment on above: Performed By: #### Karen MP3M, HEMDF #### [facility] [address] [place] [address] Eosinophils (Bld) [#/Vol] 0.0 10*3/uL Normal 0.0-0.5 [facility] Comment on above: Performed By: #### Karen MP3M, HEMDF #### [facility] [address] [place] [address] Eosinophils/100 WBC (Bld) 0.0 % Low 1.0-6.0 [facility] Comment on above: Performed By: #### B MP3M, HEMDF #### [facility] [address] [place] Erythrocyte distribution width (RBC) [Ratio] 13.5 % Normal 11.5-14.5 [facility] Comment on above: Performed By: #### B MP3M, HEMDF #### [facility] [address] [place] Granulocytes/100 WBC (Bld) 92.3 % High 40.0-80.0 [facility] Comment on above: Performed By: #### B MP3M, HEMDF #### [place] [address] [address] [place] Hematocrit (Bld) [Volume fraction] 38.0 % Normal 35.0-47.0 [facility] Comment on above: Performed By: #### B MP3M, HEMDF #### [place] [address] [address] [place] Hemoglobin (Bld) [Mass/Vol] 12.7 g/dL Normal 11.7-16. 0 [facility] Comment on above: Performed By: #### B MP3M, HEMDF #### [place] [address] [place] Lymphocytes (Bld) [#/Vol] 0.4 10*3/uL Low 1.0-4.3 [facility] Comment on above: Performed By: #### B MP3M, HEMDF #### [place] [address] [address] [place] Lymphocytes/100 WBC (Bld) 4.5 % Low 20.0-40.0 [facility] Comment on above: Performed By: #### B MP3M, HEMDF #### [place] [address] [place] MCH (RBC) [Entitic mass] 31.7 pg Normal 26.0-34.0 [facility] Comment on above: Performed By: #### B MP3M, HEMDF #### [place] [address] [place] MCHC 33.3 % Normal 32.0-36.0 [facility] Comment on above: Performed By: #### B MP3M, HEMDF #### [place] [address] [place] MCV (RBC) [Entitic vol] 95.0 fL Normal 79.0-98.0 [facility] Comment on above: Performed By: #### B MP3M, HEMDF #### [place] [address] [address] [place] Monocytes (Bld) [#/Vol] 0.3 10*3/uL Normal 0.0-0.8 [facility] Comment on above: Performed By: #### B MP3M, HEMDF #### [place] [address] [address] [place] Monocytes/100 WBC (Bld) 2.9 % Normal 2.0-10.0 [facility] Comment on above: Performed By: #### B MP3M, HEMDF #### [place] [address] [address] [place] Platelet mean volume (Bld) [Entitic vol] 8.3 fL Normal 7.4-10.4 [facility] Comment on above: Performed By: #### B MP3M, HEMDF #### [place] [address] [place], [place] Platelets (Bld) [#/Vol] 202 10*3/uL Normal 140-440 [facility] Comment on above: Performed By: #### B MP3M, HEMDF #### [place] [address] [place] RBC (Bld) [#/Vol] 4.00 10*6/uL Normal 3.80-5.20 [facility] Comment on above: Performed By: #### B MP3M, HEMDF #### [place] [address] [place], [place] WBC (Bld) [#/Vol] 9.7 10*3/uL Normal 3.6-10.7 [facility] Comment on above: Performed By: #### B MP3M, HEMDF #### [facility] [address] [place] [address] Leukodepleted Red Cellson Leukodepleted Red Cells Leukodepleted Re d Cells: [id number] released 11/06/20 07:26 JMV Unit Blood Type: O Unit Blood Rh: POS Blood Product Code: AS1 Unit Number: [id number] Unit Status: released Barcoded Unit Number: =[id number] Barcoded Product Code: = Barcoded ABO/Rh: =%5100 Unit Expiration: Leukodepleted Red Cells: [id number] released 11/06/20 07:26 JMV Unit Blood Type: O Unit Blood Rh: POS Blood Product Code: AS1 Unit Number: [id number] Unit Status: released Barcoded Unit Number: =[id number] Barcoded Product Code: = Barcoded ABO/Rh: =%5100 Unit Expiration: Normal [facility] Comment on above: Performed By: #### B MP3M, HEMDF #### [address] [address] XR CHEST PORTABLEOrdered By: Rajni Hwang on 11-06-2020 Patient Name: MARGIE FULTON Diagnostic Radiology ACCESSION EXAM DATE/TIME PROCEDURE ORDERING PROVIDER [id number] 11/06/2020 06:18 EDT CR Chest Portable MD HWANG LORNA CPT code 64248 Reason For Exam (CR Chest Portable) s/p [...] JEFFREY Transcribed Date and Time: 11/06/2020 6:31 [facility] Work Phone: [facility], [facility] Results From [facility] - 11/06/2020 6:34 AM EDT Patient Name: MARGIE FULTON Diagnostic Radiology ACCESSION EXAM DATE/TIME PROCEDURE ORDERING PROVIDER [id number] 11/06/2020 06:18 EDT CR Chest Portable MD HWANG LORNA CPT code 07189 Reason For Exam (CR Chest Portable) s/p [...] right lung base. Report Dictated on Workstation: [facility] --- Final --- Dictated: 11/06/2020 6:31 am Dictating Physician: MD COREAS JEFFREY Signed Date and Time: 11/06/2020 6:32 am Signed by: MD COREAS JEFFREY Transcribed Date and Time: 11/06/2020 6:31 [facility] Work Phone: Arterial Blood Gaseson 11-05 CO2 [Moles/Vol] 24.5 mmol/L Normal 23.0-27.0 [facility] [employer] Comment on above: Performed By: #### A BG #### [facility] [address] [address] HCO3 (Bld) [Moles/Vol] 23.4 mmol/L Normal 21.0-25.0 [facility] Comment on above: Performed By: #### A BG #### [facility] [address] [place], [place] Hemoglobin (Bld) [Mass/Vol] 12.6 g/dL Normal ScreenOn ly [facility] Comment on above: Performed By: #### A BG #### [facility] [address] [place], [place] Oxygen (Bld) [Partial pressure] 456.8 mm[Hg] High 80.0-100.0 [facility] Comment on above: Performed By: #### A BG #### [place] [address] [address] [place] Oxygen saturation in Blood 99.2 % Normal 95.0-100. 0 [facility] Comment on above: Performed By: #### A BG #### [place] [address] [address] [place] pCO2 37.1 mm[Hg] Normal 35.0-45.0 [facility] Comment on above: Performed By: #### A BG #### [place] [address] [address] [place], [place] pH 7.417 Normal 7.350-7.450 [facility] Comment on above: Performed By: #### A BG #### [facility] [address] [place], [place] Std Base Excess -0.8 mmol/L Normal -3.0-3.0 [facility] Comment on above: Performed By: #### A BG #### [facility] [address] [place], [place] FIO2 No data Normal [facility] Comment on above: Performed By: #### A BG #### [facility] [address] [place], [place] Blood Gas, ArterialOrdered B y: Rosemarie Mckeon on 11-05-2020 Base Excess, Arterial -0.8 mmol/L -3.0 - 3.0 mmol/L [facility] Work Phone: CO2 [Moles/Vol] 24.5 mmol/L 23.0 - 27.0 mmol/L [facility] Work Phone: [phone] FIO2 Arterial No data [facility] Work Phone: [phone] HCO3 (Bld) [Moles/Vol] 23.4 mmol/L 21.0 - 25.0 mmol/L [facility] Work Phone: [phone] Hemoglobin (Bld) [Mass/Vol] 12.6 g/dL ScreenOn ly [facility] Work Phone: [phone] Interpretation and review of laboratory results Abnormal [facility] Work Phone: [phone] Oxygen saturation in Blood 99.2 % 9 5.0 - 100.0 % [facility] Work Phone: [phone] pCO2, Arterial 37.1 mm[Hg] 35.0 - 45.0 mm[Hg] [facility] Work Phone: [phone] pH, Arterial 7.417 [facility] Work Phone: [phone] pO2, Arterial 456.8 mm[Hg] High 80.0 - 100.0 mm[Hg] [facility] Work Phone: [phone] Test Performed by [facility], [address] [place] [id number] [facility] Work Phone: [phone] CR Chest Portableon 11-06-19 21 CR Chest Portable Patient Name: MARGIE FULTON Diagnostic Radiology ACCESSION EXAM DATE/TIME PROCEDURE ORDERING PROVIDER [phone] 11/05/2020 19:16 EDT CR Chest Portable MD HWANG LORNA CPT code 89362 Reason For Exam (CR Chest Portable) s/p [...] Transcribed Date and Time: 11/05/2020 7:17 Normal [facility] Surgical Pathologyon 021 Surgical Pathology [id number] [facility] DEPARTMENT OF [facility] PATHOLOGY AND LABORATORY MEDICINE [address] [place] [address] FINAL SURGICAL PATHOLOGY REPORT NAME: MARGIE FULTON : 1940 80 Y F BILLING NO.: [id number] LOCATION: [place] [address] 01 PROCEDURE 11/05/2020 DATE: SURGEON: ROSEMARIE MCKEON [...] (pT): pT2a Regional Lymph Nodes (pN): pN0 VP OUTCOMES TUMOR BLOCK(S): F10-F13 SMT/SMT Signature> S LISA [...] Received in formalin labeled level 10 lymph node" is one piece of dark, hallman, soft tissue measuring 0.6 cm. The specimen is submitted entirely into one cassette. C. Received in formalin labeled level 8 lymph node #1" is one piece of dark, hallman, soft tissue measuring 0.7 cm. The specimen is submitted entirely into one cassette. D. Received in formalin labeled level 8 lymph node #2" is one piece of dark, hallman, nodular [...] unremarkable. Multiple hilar lymph nodes are identified. Signwriter sections of the lesion are submitted. Signwriter sections of the remainder of the specimen are submitted. Cassette summary: 1 - 4 are shaved margin at the staple line; 5 is bronchovascular margin; 6 is multiple hilar lymph nodes; 7 - 16 are claims representative (more content not included)... Normal [employer] XR CHEST PORTABLEOrdered By: Rajni Hwang on 11-05-2020 Patient Name: MARGIE FULTON Diagnostic Radiology ACCESSION EXAM DATE/TIME PROCEDURE ORDERING PROVIDER [id number] 11/05/2020 19:16 EDT CR Chest Portable MD HWANG LORNA CPT code 28826 Reason For Exam (CR Chest Portable) s/p [...] R Transcribed Date and Time: 11/05/2020 7:17 [facility] Work Phone: [facility] Incoming Radiology Results From [facility] - 11/05/2020 7:21 PM EDT [facility]: [id number] Radiology ACCESSION EXAM DATE/TIME PROCEDURE ORDERING PROVIDER [id number] 11/05/2020 19:16 EDT CR Chest Portable MD HWANG LORNA CPT code 36842 Reason For Exam (CR Chest Portable) s/p [...] R Transcribed Date and Time: 11/05/2020 7:17 [facility] Work Phone: [id number] 11-03-2020 SARS-CoV-2 (COVID-19) RNA JORGE+probe Ql (Unsp spec) SARS-CoV-2 --> Status: F Not Detected. Expected Result: Not Detected _ Real-time, RT-PCR performed on the [employer] System by the [facility] [employer] Negative results do not preclude SARS-CoV-2 infection and should not be used as the sole basis for treatment or other patient management decisions. This assay was developed by [employer] and distributed under an Emergency Use Authorization (EUA) granted by the [employer] for the qualitative detection of SARS-CoV-2 nucleic acid. Provider and patient fact sheets can be found at https://www.fda.gov/ media/346657/downloa d and https://www.fda.gov/ media/147824/downloa d. Expected Result: Not Detected _ Real-time, RT-PCR performed on the [employer] System by the [facility] [employer] Negative results do not preclude SARS-CoV-2 infection and should not be used as the sole basis for treatment or other patient management decisions. This assay was developed by [employer] and distributed under an Emergency Use Authorization (EUA) granted by the FDA for the qualitative detection of SARS-CoV-2 nucleic acid. Provider and patient fact sheets can be found at https://www.fda.gov/ media/292412/downloa d and https://www.fda.gov/ media/747904/downloa d. Normal [facility] Comment on above: Performed By: #### B MP3M, HEMDF #### [facility] [address] [place] [address] CR Chest PA/LATon 11-02-2020 CR Chest PA/LAT Patient Name: MARGIE FULTON Diagnostic Radiology ACCESSION EXAM DATE/TIME PROCEDURE ORDERING PROVIDER [id number] 11/02/2020 15:58 EDT CR Chest PA and LAT [id number] MELODY MARTINEZ CPT code 34637 Reason For Exam (CR Chest PA and [...] Transcribed Date and Time: 11/02/2020 4:10 Normal [facility] Comp Metabolic Panelon 11-02 ALT [Catalytic activity/Vol] 20 U/L Normal 0-34 [facility] Comment on above: Result Comment: The ALT test is performed by an updated assay method. Please note that the reference intervals have been changed and are now sex specific. Performed By: #### A DDON #### [facility] [address] [place] [address] Calcium [Mass/Vol] 9.7 mg/dL Normal 8.4-10.4 [facility] Comment on above: Performed By: #### A DDON #### [facility] [address] [place], [place] Glucose [Mass/Vol] 69 mg/dL Low 70-100 [facility] Comment on above: Performed By: #### A DDON #### [facility] [address] [place], [place] ALP [Catalytic activity/Vol] 63 U/L Normal 38-126 [facility] Comment on above: Performed By: #### A DDON #### [facility] [address] [place], [place] Anion gap [Moles/Vol] 10 mmol/L Normal 3-13 [facility] Comment on above: Performed By: #### A DDON #### [place] [address] [address] [place], [place] AST [Catalytic activity/Vol] 35 U/L Normal 15-46 [facility] Comment on above: Performed By: #### A DDON #### [place] [address] [address] [place], [place] Bilirubin [Mass/Vol] 0.3 mg/dL Normal 0.2-1.3 [facility] Comment on above: Performed By: #### A DDON #### [place] [address] [address] [place], [place] CO2 [Moles/Vol] 26 mmol/L Normal 22-30 [facility] Comment on above: Performed By: #### A DDON #### [place] [address] [address] [place], [place] Creatinine [Mass/Vol] 0.80 mg/dL Normal 0.52-1.25 [facility] Comment on above: Performed By: #### A DDON #### [place] [address] [address] [place], [place] GFR/1.73 sq M.predicted among blacks MDRD (S/P/Bld) [Vol rate/Area] 81.6 mL/min/{1.73_m2} Normal >60 [facility] Comment on above: Performed By: #### A DDON #### [address] [address] GFR/1.73 sq M.predicted among non-blacks MDRD (S/P/Bld) [Vol rate/Area] 70.4 mL/min/{1.73_m2} Normal >60 [facility] Comment on above: Result Comment: KDIG O [...] secretion. Performed By: #### A DDON #### [place] [address] [place], [place] Protein [Mass/Vol] 6.7 g/dL Normal 6.3-8.2 [facility] Comment on above: Performed By: #### A DDON #### [address] Urea nitrogen [Mass/Vol] 34 mg/dL High 7-20 [facility] Comment on above: Performed By: #### A DDON #### [address] Potassium [Moles/Vol] 4.3 mmol/L Normal 3.5-5.1 [facility] Comment on above: Performed By: #### A DDON #### [address] Sodium [Moles/Vol] 143 mmol/L Normal 135-145 [facility] Comment on above: Performed By: #### A DDON #### [address] Albumin [Mass/Vol] 4.0 g/dL Normal 3.5-5.0 [facility] Comment on above: Performed By: #### A DDON #### [place] [address] [address] [place], [place] Chloride [Moles/Vol] 107 mmol/L Normal 98-107 [facility] Comment on above: Performed By: #### A DDON #### [place] [address] [address] [place], [place] Hemoglobin A1Con 11-02-2020 Glucose [Mass/Vol] 97 mg/dL Normal [facility] Comment on above: Performed By: #### A DDON #### [place] [address] [address] [place], [place] HbA1c (Bld) [Mass fraction] 5.0 % Normal [facility] Comment on above: Result Comment: Norm al less than 5.7% Prediabetes 5.7% to 6.4% Diabetes 6.5% or higher --HgbA1C levels may not be accurate in patients who have renal disease, received recent blood transfusions, are anemic, or who have dyshemoglobinemia. Performed By: #### A DDON #### [place] [address] [address] [place], [place] Hemogram w/ Autodiffon 11-02 Abs Baso Cnt 0.0 10*3/uL Normal 0.0-0.2 [facility] Comment on above: Performed By: #### A DDON #### [place] [address] [address] [place], [place] Abs Neutrophile Cnt 4.3 10*3/uL Normal 1.8-7.0 [facility] Comment on above: Performed By: #### A DDON #### [place] [address] [place], [place] Basophils/100 WBC (Bld) 0.6 % Normal 0.0-2.0 [facility] Comment on above: Performed By: #### A DDON #### [place] [address] [address] [place], [place] Eosinophils (Bld) [#/Vol] 0.2 10*3/uL Normal 0.0-0.5 [facility] Comment on above: Performed By: #### A DDON #### [place] [address] [address] [place], [place] Eosinophils/100 WBC (Bld) 3.0 % Normal 1.0-6.0 [facility] Comment on above: Performed By: #### A DDON #### [place] [address] [address] [place], [place] Erythrocyte distribution width (RBC) [Ratio] 13.7 % Normal 11.5-14.5 [facility] Comment on above: Performed By: #### A DDON #### [place] [address] [address] [place], [place] Granulocytes/100 WBC (Bld) 66.6 % Normal 40.0-80.0 [facility] Comment on above: Performed By: #### A DDON #### [place] [address] [address] [place], [place] Hematocrit (Bld) [Volume fraction] 39.7 % Normal 35.0-47.0 [facility] Comment on above: Performed By: #### A DDON #### [place] [address] [address] [place], [place] Hemoglobin (Bld) [Mass/Vol] 13.0 g/dL Normal 11.7-16. 0 [facility] Comment on above: Performed By: #### A DDON #### [place] [address] [address] [place], [place] Lymphocytes (Bld) [#/Vol] 1.5 10*3/uL Normal 1.0-4.3 [facility] Comment on above: Performed By: #### A DDON #### [place] [address] [address] [place], [place] Lymphocytes/100 WBC (Bld) 22.9 % Normal 20.0-40.0 [facility] Comment on above: Performed By: #### A DDON #### [place] [address] [place] [address] MCH (RBC) [Entitic mass] 31.9 pg Normal 26.0-34.0 [facility] Comment on above: Performed By: #### A DDON #### [facility] [address] [place], [place] MCHC 32.9 % Normal 32.0-36.0 [facility] Comment on above: Performed By: #### A DDON #### [facility] [address] [place], [place] MCV (RBC) [Entitic vol] 96.9 fL Normal 79.0-98.0 [facility] Comment on above: Performed By: #### A DDON #### [place] [address] [address] [place], [place] Monocytes (Bld) [#/Vol] 0.4 10*3/uL Normal 0.0-0.8 [facility] Comment on above: Performed By: #### A DDON #### [place] [address] [address] [place], [place] Monocytes/100 WBC (Bld) 6.9 % Normal 2.0-10.0 [facility] Comment on above: Performed By: #### A DDON #### [place] [address] [address] [place], [place] Platelet mean volume (Bld) [Entitic vol] 8.4 fL Normal 7.4-10.4 [facility] Comment on above: Performed By: #### A DDON #### [place] [address] [address] [place], [place] Platelets (Bld) [#/Vol] 220 10*3/uL Normal 140-440 [facility] Comment on above: Performed By: #### A DDON #### [place] [address] [address] [place], [place] RBC (Bld) [#/Vol] 4.09 10*6/uL Normal 3.80-5.20 [facility] Comment on above: Performed By: #### A DDON #### [place] [address] [address] [place], [place] WBC (Bld) [#/Vol] 6.4 10*3/uL Normal 3.6-10.7 [facility] Comment on above: Performed By: #### A DDON #### [facility] [address] [place], [place] Magnesiumon 11-02-2020 Magnesium [Mass/Vol] 2.1 mg/dL Normal 1.6-2.3 [facility] Comment on above: Performed By: #### A DDON #### [facility] [address] [place], [place] Staph Aureus Complete Nasalo n 11-02-2020 Staph Aureus Complete Nasal Staph Screen --> Status: F No S. aureus detected. Negative nasal MRSA PCR has a high negative predictive value for MRSA pneumonia. Consider stopping vancomycin if no other clinical indication. Contact Antimicrobial Stewardship for further recommendations. The analytical performance characteristics of this assay have been determined by [facility] in accordance with CLIA regulations. The modifications [...] of this assay have been determined by [facility] in accordance with CLIA regulations. The modifications have not been cleared or approved by the U. S. Food and Drug Administration; however, the FDA has determined that such clearance or approval is not necessary. Normal [facility] Comment on above: Performed By: #### B MP3M, HEMDF #### [facility] [address] [place], [place] TS GELon 11-02-2020 TS GEL ABO Group: O Rh, Gel: POS Antibody Screen Gel: NEG Normal [facility] Comment on above: Performed By: #### B MP3M, HEMDF #### [facility] [address] [place], [place] .Auto Diffon 01-22-2020 Ammonia (P) [Mass/Vol] 0.80 10 3/mcL Normal 0.15-1.00 [facility] ([place]) Comment on above: Performed By: #### C XIAO, GUERDA, ANTONIO, BMP, GFR #### [address] [address] Basophils (Bld) [#/Vol] 0.00 10 3/mcL Normal 0.00-0.19 [facility] ([place]) Comment on above: Performed By: #### C BC, ADIFF, ANEU, BMP, GFR #### [address] [address] Basophils/100 WBC (Bld) 0.4 % Normal 0.0-2.5 [facility] ([place]) Comment on above: Performed By: #### C BC, ADIFF, ANEU, BMP, GFR #### [address] [address] Eosinophils (Bld) [#/Vol] 0.10 10 3/mcL Normal 0.00-0. 40 [facility] ([place]) Comment on above: Performed By: #### C BC, ADIFF, ANEU, BMP, GFR #### [address] [address] Eosinophils/100 WBC (Bld) 0.4 % Normal 0.0-7.0 [facility] ([place]) Comment on above: Performed By: #### C BC, ADIFF, ANEU, BMP, GFR #### [address] [address] Lymphocytes (Bld) [#/Vol] 0.90 10 3/mcL Normal 0.77-3. 85 [facility] ([place]) Comment on above: Performed By: #### C BC, ADIFF, ANEU, BMP, GFR #### [address] [address] Lymphocytes/100 WBC (Bld) 6.5 % Low 10.0-50.0 [facility] ([place]) Comment on above: Performed By: #### C BC, ADIFF, ANEU, BMP, GFR #### [address] [address] Monocytes/100 WBC (Bld) 5.7 % Normal 1.7-13.0 [facility] ([place]) Comment on above: Performed By: #### C BC, ADIFF, ANEU, BMP, GFR #### [address] [address] Neutrophils/100 WBC (Bld) 87.0 % High 37.0-80.0 [facility] ([place]) Comment on above: Performed By: #### C BC, ADIFF, ANEU, BMP, GFR #### [address] [address] .GFRon 01-22-2020 GFR 83 ml/min/1.73sqm Normal [facility] ([place]) Comment on above: Result Comment: GFR Population [...] B MP, GFR, CBC, ADIFF, ANEU #### [address] [address] GFR Non- 69 ml/min/1.73sqm Normal [facility] ([place]) Comment on above: Result Comment: GFR Population [...] B MP, GFR, CBC, ADIFF, ANEU #### [address] [address] .NEUABSon 01-22-2020 Neutrophils (Bld) [#/Vol] 11.50 10 3/mcL High 2.85-6 .16 [facility] ([place]) Comment on above: Performed By: #### C BC, ADIFF, ANEU, BMP, GFR #### [address] [address] BMPon 01-22-2020 Calcium [Mass/Vol] 8.6 mg/dL Normal 8.4-10.2 [facility] ([place]) Comment on above: Performed By: #### B MP, GFR, CBC, ADIFF, ANEU #### [place] [id number] Chloride [Moles/Vol] 106 mmol/L Normal 98-107 [facility] ([place]) Comment on above: Performed By: #### B MP, GFR, CBC, ADIFF, ANEU #### [place] [id number] CO2 [Moles/Vol] 24 mmol/L Normal 23-31 [facility] ([place]) Comment on above: Performed By: #### B MP, GFR, CBC, ADIFF, ANEU #### [address] [address] Creatinine [Mass/Vol] 0.81 mg/dL Normal 0.55-1.02 [facility] ([place]) Comment on above: Performed By: #### B MP, GFR, CBC, ADIFF, ANEU #### [address] [address] Electrolyte Balance 11.0 mEq/L Normal [facility] ([place]) Comment on above: Performed By: #### B MP, GFR, CBC, ADIFF, ANEU #### [address] [address] Glucose [Mass/Vol] 110 mg/dL Normal 83-110 [facility] ([place]) Comment on above: Performed By: #### B MP, GFR, CBC, ADIFF, ANEU #### [address] [address] Potassium [Moles/Vol] 4.7 mmol/L Normal 3.5-5.1 [facility]) Comment on above: Performed By: #### B MP, GFR, CBC, ADIFF, ANEU #### [address] [address] Sodium [Moles/Vol] 141 mmol/L Normal 136-145 [facility]) Comment on above: Performed By: #### B MP, GFR, CBC, ADIFF, ANEU #### [address] [address] Urea nitrogen [Mass/Vol] 16 mg/dL Normal 7-18 [facility]) Comment on above: Performed By: #### B MP, GFR, CBC, ADIFF, ANEU #### [address] [address] Urea nitrogen/Creatinine [Mass ratio] 20 ratio Normal 7-27 [facility]) Comment on above: Performed By: #### B MP, GFR, CBC, ADIFF, ANEU #### [address] [address] CBCon 01-22-2020 Erythrocyte distribution width (RBC) [Ratio] 13.1 % Normal 11.5-14.5 [facility]) Comment on above: Performed By: #### C BC, ADIFF, ANEU, BMP, GFR #### [address] [address] Hematocrit (Bld) [Volume fraction] 36.0 % Low 37.0-47.0 [facility] ([place]) Comment on above: Performed By: #### C BC, ADIFF, ANEU, BMP, GFR #### [address] [address] Hemoglobin (Bld) [Mass/Vol] 12.0 G/dL Normal 12.0-16. 0 [facility]) Comment on above: Performed By: #### C BC, ADIFF, ANEU, BMP, GFR #### [address] [address] MCH (RBC) [Entitic mass] 32.3 pg High 27.0-31.2 [facility] ([place] Comment on above: Performed By: #### C BC, ADIFF, ANEU, BMP, GFR #### [address] [address] MCHC (RBC) [Mass/Vol] 33.3 G/dL Normal 33.0-37.0 [facility] ([place]) Comment on above: Performed By: #### C BC, ADIFF, ANEU, BMP, GFR #### [address] [address] MCV (RBC) [Entitic vol] 97.0 fL High 80.0-94.0 [facility] ([place]) Comment on above: Performed By: #### C BC, ADIFF, ANEU, BMP, GFR #### [address] [address] Platelet mean volume (Bld) [Entitic vol] 7.8 fL Normal 7.4-10.4 [facility] ([place]) Comment on above: Performed By: #### C BC, ADIFF, ANEU, BMP, GFR #### [address] [address] Platelets (Bld) [#/Vol] 214 10 3/mcL Normal 130-400 [facility] ([place] Comment on above: Performed By: #### C BC, ADIFF, ANEU, BMP, GFR #### [address] [address] RBC (Bld) [#/Vol] 3.71 10 6/mcL Low 4.20-5.40 [facility] ([place]) Comment on above: Performed By: #### C BC, ADIFF, ANEU, BMP, GFR #### [address] [address] WBC (Bld) [#/Vol] 13.20 10 3/mcL High 4.60-10.80 [facility] ([place]) Comment on above: Performed By: #### C BC, ADIFF, ANEU, BMP, GFR #### [place] [id number] [place], [place] [address] XR KNEE 1 OR 2 VIEWS RIGHTon [...] Date: 01/21/2020 6:26:51 PM Ordering Provider:Carlos Escobedo [facility] ([place]) CT KNEE W/O CONTRAST RIGHTon 01-07-2020 CT [...] Date: 01/07/2020 9:12:11 AM Ordering Provider:Carlos Escobedo [facility] ([place]) .Auto Diffon 01-06-2020 Ammonia (P) [Mass/Vol] 0.40 10 3/mcL Normal 0.15-1.00 [facility] ([place]) Comment on above: Performed By: #### B MP, GFR, CBC, ADIFF, ANEU #### [address] [address] Basophils (Bld) [#/Vol] 0.10 10 3/mcL Normal 0.00-0.19 [facility] ([place]) Comment on above: Performed By: #### B MP, GFR, CBC, ADIFF, ANEU #### [address] [address] Basophils/100 WBC (Bld) 1.0 % Normal 0.0-2.5 [facility] ([place]) Comment on above: Performed By: #### B MP, GFR, CBC, ADIFF, ANEU #### [address] [address] Eosinophils (Bld) [#/Vol] 0.20 10 3/mcL Normal 0.00-0. 40 [facility] ([place]) Comment on above: Performed By: #### B MP, GFR, CBC, ADIFF, ANEU #### [address] [address] Eosinophils/100 WBC (Bld) 2.2 % Normal 0.0-7.0 [facility] ([place]) Comment on above: Performed By: #### B MP, GFR, CBC, ADIFF, ANEU #### [address] [address] Lymphocytes (Bld) [#/Vol] 1.80 10 3/mcL Normal 0.77-3. 85 [facility] ([place]) Comment on above: Performed By: #### B MP, GFR, CBC, ADIFF, ANEU #### [address] [address] Lymphocytes/100 WBC (Bld) 25.5 % Normal 10.0-50.0 [facility] ([place]) Comment on above: Performed By: #### B MP, GFR, CBC, ADIFF, ANEU #### [address] [address] Monocytes/100 WBC (Bld) 6.1 % Normal 1.7-13.0 [facility] ([place]) Comment on above: Performed By: #### B MP, GFR, CBC, ADIFF, ANEU #### [address] [address] Neutrophils/100 WBC (Bld) 65.2 % Normal 37.0-80.0 [facility] ([place]) Comment on above: Performed By: #### B MP, GFR, CBC, ADIFF, ANEU #### [address] [address] .GFRon 01-06-2020 GFR 94 ml/min/1.73sqm Normal [facility] ([place]) Comment on above: Result Comment: GFR Population [...] B MP, GFR, CBC, ADIFF, ANEU #### [address] [address] GFR Non- 77 ml/min/1.73sqm Normal [facility] ([place]) Comment on above: Result Comment: GFR Population [...] B MP, GFR, CBC, ADIFF, ANEU #### [address] [address] .NEUABSon 01-06-2020 Neutrophils (Bld) [#/Vol] 4.60 10 3/mcL Normal 2.85-6. 16 [facility] ([place]) Comment on above: Performed By: #### B MP, GFR, CBC, ADIFF, ANEU #### [address] [address] BMPon 01-06-2020 Calcium [Mass/Vol] 9.2 mg/dL Normal 8.4-10.2 [facility] ([place]) Comment on above: Performed By: #### B MP, GFR, CBC, ADIFF, ANEU #### [address] [address] Chloride [Moles/Vol] 104 mmol/L Normal 98-107 [facility] ([place]) Comment on above: Performed By: #### B MP, GFR, CBC, ADIFF, ANEU #### [address] [address] CO2 [Moles/Vol] 29 mmol/L Normal 23-31 [facility] ([place] Comment on above: Performed By: #### B MP, GFR, CBC, ADIFF, ANEU #### [address] [address] Creatinine [Mass/Vol] 0.73 mg/dL Normal 0.55-1.02 [facility] ([place]) Comment on above: Performed By: #### B MP, GFR, CBC, ADIFF, ANEU #### [address] [address] Electrolyte Balance 8.0 mEq/L Normal [facility] ([place]) Comment on above: Performed By: #### B MP, GFR, CBC, ADIFF, ANEU #### [address] [address] Glucose [Mass/Vol] 83 mg/dL Normal 83-110 [facility] ([place] Comment on above: Performed By: #### B MP, GFR, CBC, ADIFF, ANEU #### [address] [address] Potassium [Moles/Vol] 4.2 mmol/L Normal 3.5-5.1 [facility] ([place]) Comment on above: Performed By: #### B MP, GFR, CBC, ADIFF, ANEU #### [address] [address] Sodium [Moles/Vol] 141 mmol/L Normal 136-145 [facility] ([place] Comment on above: Performed By: #### B MP, GFR, CBC, ADIFF, ANEU #### [address] [address] Urea nitrogen [Mass/Vol] 28 mg/dL High 7-18 [facility] ([place]) Comment on above: Performed By: #### B MP, GFR, CBC, ADIFF, ANEU #### [address] [address] Urea nitrogen/Creatinine [Mass ratio] 38 ratio High 7-27 [facility] ([place] Comment on above: Performed By: #### B MP, GFR, CBC, ADIFF, ANEU #### [address] [address] CBCon 01-06-2020 Erythrocyte distribution width (RBC) [Ratio] 13.0 % Normal 11.5-14.5 [facility]) Comment on above: Order Comment: Pre-A dmission Testing Performed By: #### B MP, GFR, CBC, ADIFF, ANEU #### [address] [address] Hematocrit (Bld) [Volume fraction] 39.5 % Normal 37.0-47.0 [facility] ([place]) Comment on above: Order Comment: Pre-A dmission Testing Performed By: #### B MP, GFR, CBC, ADIFF, ANEU #### [address] [address] Hemoglobin (Bld) [Mass/Vol] 13.2 G/dL Normal 12.0-16. 0 [facility] ([place] Comment on above: Order Comment: Pre-A dmission Testing Performed By: #### B MP, GFR, CBC, ADIFF, ANEU #### [address] [address] MCH (RBC) [Entitic mass] 32.2 pg High 27.0-31.2 [facility] ([place]) Comment on above: Order Comment: Pre-A dmission Testing Performed By: #### B MP, GFR, CBC, ADIFF, ANEU #### [address] [address] MCHC (RBC) [Mass/Vol] 33.5 G/dL Normal 33.0-37.0 [facility] ([place]) Comment on above: Order Comment: Pre-A dmission Testing Performed By: #### B MP, GFR, CBC, ADIFF, ANEU #### [address] [address] MCV (RBC) [Entitic vol] 96.2 fL High 80.0-94.0 A [facility] ([place]) Comment on above: Order Comment: Pre-A dmission Testing Performed By: #### B MP, GFR, CBC, ADIFF, ANEU #### [address] [address] Platelet mean volume (Bld) [Entitic vol] 9.4 fL Normal 7.4-10.4 [facility] ([place]) Comment on above: Order Comment: Pre-A dmission Testing Performed By: #### B MP, GFR, CBC, ADIFF, ANEU #### [address] [address] Platelets (Bld) [#/Vol] 236 10 3/mcL Normal 130-400 [facility] ([place]) Comment on above: Order Comment: Pre-A dmission Testing Performed By: #### B MP, GFR, CBC, ADIFF, ANEU #### [address] [address] RBC (Bld) [#/Vol] 4.11 10 6/mcL Low 4.20-5.40 [facility] ([place]) Comment on above: Order Comment: Pre-A dmission Testing Performed By: #### B MP, GFR, CBC, ADIFF, ANEU #### [address] [address] WBC (Bld) [#/Vol] 7.10 10 3/mcL Normal 4.60-10.80 [facility] ([place]) Comment on above: Order Comment: Pre-A dmission Testing Performed By: #### B MP, GFR, CBC, ADIFF, ANEU #### [address] [address] ANES Parveen 03-28-2019 ANES POST HNO ID: [id number] Author: Nabil Jones Service: Anesthesiology Author Type: [...] 28, 2019 TIME: 8:04 PM PAGER/CONTACT #: Gregg [facility] ANES PREOPon 03-28-2019 ANES PREOP HNO ID: [id number] Author: Luis M Littlejohn Service: Anesthesiology Author [...] results: No results found for this basename: HCT,HEMATOCRIT,K,POT ASSIUM ANES DOS/PREOP NOTE: Vitals: 03/28/19 0909 BP: [...] week - Drug use: No No current facility-administere d medications on file prior to encounter. Current [...] 1 tablet by mouth once daily. Current Facility-Administere d Medications Medication Dose Route Frequency Provider Last Rate Last Dose - lidocaine 10 mg/mL (1 %) 1-2 mg injection (XYLOCAINE) 0.1-0.2 mL INTRADERMAL PRN Moni Oneyda Husain - lactated ringers infusion 5-30 mL/hr INTRAVENOUS CONTINUOUS Moni Oneyda Husain - ceFAZolin iv piggyback 2 g in D5W (iso-osmotic) 100 mL (ANCEF) 2 g INTRAVENOUS Pre-Op Once [facility] - onabotulinum toxin type A 100 Units injection (BOTOX) 100 Units INTRADERMAL ONCE [facility] - NaCl (PF) 0.9% 10 mL injection 10 mL OTHER ONCE [facility] Allergies: ALLERGIES No Known Allergies DOS EXAM: [...] March 28, 2019 TIME: 9:41 AM CSN: [id number] Normal [facility] HISTORY PHYSICALon 9 HISTORY PHYSICAL HNO ID: [id number] Author: Rachel LambertLawyer CriminalMatilda Earl Service: Anesthesiology Author Type: Nurse Practitioner [...] file Gets together: Not on file Attends scientologist service: Not on file Active member of [...] ASSESSMENT: Pain Pain Level: 0 Pain Assessment (RN/BIN FILLER): Assessment Tool: Verbal (Numeric Rating or Visual Analog Scale) General: Denies fever, chills, and unexpected weight change. Neuro: Denies dizziness and headaches. Respiratory: Denies SOB or cough Cardiovascular: Denies CP and palpitations. GI: Denies abd pain and N/V/D. : Denies dysuria. 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 SEE HPI Endocrine: [...] and oriented to person, place, and time. DOT COMPLIANCE SPECIALIST: DEFER TO SURGEON, SEE HPI Diagnostic tests [...] 28, 2019 TIME: 10:29 AM PAGER/CONTACT #: Normal [facility] HISTORY PHYSICAL HNO ID: [id number] Author: Moni Husain Service: Urogynecology Author Type: Physician Type: HANDP Filed: 03/28/2019 8:40 AM Note Text: HISTORY AND PHYSICAL EXAMINATION SERVICE DATE: 03/28/2019 SERVICE TIME: 8:40 AM PRIMARY CARE PHYSICIAN: Danielle Paige DO Subjective 78 year old white female here for [...] pain. Skin: Negative for rash and wound. Allergic/Immunologic : Negative. Neurological: Negative for dizziness, tremors and seizures. Hematological: Negative for adenopathy and disseminated cancer . Psychiatric/Behavior al: Negative for agitation and suicidal ideas. Objective [...] 28, 2019 TIME: 8:39 AM PAGER/CONTACT #: [phone] [facility] NURSING PROGon 03-28-2019 NURSING PROG HNO ID: [id number] Author: Catalina Ang) SATNAM Brenner Service: Nursing Author Type: Registered Nurse Type: Nursing Progress Note Filed: 03/28/2019 3:19 PM Note Text: Patient Voided 400 Urine without difficulty Normal [facility] NURSING PROG HNO ID: [id number] Author: Catalina Ang) SATNAM Brenner Service: Nursing Author Type: Registered Nurse Type: Nursing Progress Note Filed: 03/28/2019 3:15 PM Note Text: DR Cesar At Bedside with clarification of Discharge orders. Patient Must Void Prior To Discharge home. 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 Danielle Paige DO Work Phone: [facility] 01-23-2025 07:58-0400 Body temperature 97.7 [degF] Dr. Danielle Paige DO Work Phone: [facility] 01-23-2025 07:58-0400 Body weight 58.[address] Danielle Paige DO Work Phone: [facility] 01-23-2025 07:58-0400 Diastolic blood pressure 67 mm[Hg] Dr. Danielle Paige DO Work Phone: [facility] 01-23-2025 07:58-0400 Heart rate 97 /min Dr. Danielle Paige DO Work Phone: [facility] 01-23-2025 07:58-0400 Respiratory rate 16 /min Dr. Danielle Paige DO Work Phone: [facility] 01-23-2025 07:58-0400 SaO2% (BldA) [Mass fraction] 99 % Dr. Danielle Paige DO Work Phone: [facility] 01-23-2025 07:58-0400 Systolic blood pressure 106 mm[Hg] Dr. Danielle Paige DO Work Phone: [facility] 01-09-2025 13:58-0400 Body height 165.[address] Danielle Paige DO Work Phone: [facility] 01-09-2025 13:58-0400 Body mass index (BMI) [Ratio] 21.4 kg/m2 Dr. Danielle Paige DO Work Phone: [facility] 01-09-2025 13:58-0400 Body weight 58.[address] Danielle Paige DO Work Phone: [facility] 01-09-2025 13:58-0400 Diastolic blood pressure 65 mm[Hg] Dr. Danielle Paige DO Work Phone: [facility] 01-09-2025 13:58-0400 Heart rate 99 /min Dr. Danielle Paige DO Work Phone: [facility] 01-09-2025 13:58-0400 Respiratory rate 18 /min Dr. Danielle Paige DO Work Phone: [facility] 01-09-2025 13:58-0400 Systolic blood pressure 99 mm[Hg] Dr. Danielle Paige DO Work Phone: [facility] 01-01-2025 08:41-0400 Body height 165.[address] Danielle Paige DO Work Phone: [facility] 01-01-2025 08:41-0400 Body mass index (BMI) [Ratio] 21.7 kg/m2 Dr. Danielle Paige DO Work Phone: [facility] 01-01-2025 08:41-0400 Body temperature 98 [degF] Dr. Danielle Paige DO Work Phone: [facility] 01-01-2025 08:41-0400 Body weight 59.[address] Danielle Paige DO Work Phone: [facility] 01-01-2025 08:41-0400 Diastolic blood pressure 70 mm[Hg] Dr. Danielle Paige DO Work Phone: [facility] 01-01-2025 08:41-0400 Heart rate 87 /min Dr. Danielle Paige DO Work Phone: [facility] 01-01-2025 08:41-0400 Respiratory rate 18 /min Dr. Danielle Paige DO Work Phone: [facility] 01-01-2025 08:41-0400 SaO2% (BldA) [Mass fraction] 97 % Dr. Danielle Paige DO Work Phone: [facility] 01-01-2025 08:41-0400 Systolic blood pressure 103 mm[Hg] Dr. Danielle Paige DO Work Phone: [facility] 12-19-2024 14:00-0400 Body temperature 98.3 [degF] Dr. Danielle Paige DO Work Phone: [facility] 12-19-2024 14:00-0400 Diastolic blood pressure 62 mm[Hg] Dr. Danielle Paige DO Work Phone: [facility] 12-19-2024 14:00-0400 Heart rate 79 /min Dr. Danielle Paige DO Work Phone: [facility] 12-19-2024 14:00-0400 Systolic blood pressure 105 mm[Hg] Dr. Danielle Paige DO Work Phone: [facility] 12-19-2024 09:00-0400 SaO2% (BldA) [Mass fraction] 96 % Dr. Danielle Paige DO Work Phone: [facility] 12-19-2024 08:24-0400 Body temperature 97.2 [degF] Dr. Danielle Paige DO Work Phone: [facility] 12-19-2024 08:24-0400 Diastolic blood pressure 64 mm[Hg] Dr. Danielle Paige DO Work Phone: [facility] 12-19-2024 08:24-0400 Heart rate 82 /min Dr. Danielle Piage DO Work Phone: [facility] 12-19-2024 08:24-0400 Respiratory rate 16 /min Dr. Danielle Paige DO Work Phone: [facility] 12-19-2024 08:24-0400 Systolic blood pressure 98 mm[Hg] Dr. Danielle Paige DO Work Phone: [facility] 12-19-2024 05:43-0400 Body mass index (BMI) [Ratio] 21.8 kg/m2 Dr. Danielle Paige DO Work Phone: [facility] 12-19-2024 05:43-0400 Body weight 59.[address] Danielle Paige DO Work Phone: [facility] 12-18-2024 11:38-0400 Body height 165.[address] Danielle Paige DO Work Phone: [facility] 12-17-2024 23:08-0400 Body temperature 98 [degF] Dr. Danielle Paige DO Work Phone: [facility] 12-17-2024 23:08-0400 Diastolic blood pressure 85 mm[Hg] Dr. Danielle Paige DO Work Phone: [facility] 12-17-2024 23:08-0400 Heart rate 109 /min Dr. Danielle Paige DO Work Phone: [facility] 12-17-2024 23:08-0400 Respiratory rate 18 /min Dr. Danielle Paige DO Work Phone: [facility] 12-17-2024 23:08-0400 SaO2% (BldA) [Mass fraction] 97 % Dr. Danielle Paige DO Work Phone: [facility] 12-17-2024 23:08-0400 Systolic blood pressure 139 mm[Hg] Dr. Danielle Paige DO Work Phone: [facility] 12-17-2024 20:10-0400 Body height 160.[address] Danielle Paige DO Work Phone: [facility] 12-17-2024 20:10-0400 Body mass index (BMI) [Ratio] 22.8 kg/m2 Dr. Danielle Paige DO Work Phone: [facility] 12-17-2024 20:10-0400 Body weight 58.[address] Danielle Paige DO Work Phone: [facility] 12-12-2024 11:06-0400 Body height 160.[address] Danielle Paige DO Work Phone: [facility] 12-12-2024 11:06-0400 Body mass index (BMI) [Ratio] 23.2 kg/m2 Dr. Danielle Paige DO Work Phone: [facility] 12-12-2024 11:06-0400 Body weight 59.[address] Danielle Paige DO Work Phone: [facility] 12-12-2024 11:06-0400 Diastolic blood pressure 67 mm[Hg] Dr. Danielle Paige DO Work Phone: [facility] 12-12-2024 11:06-0400 Heart rate 76 /min Dr. Danielle Paige DO Work Phone: [facility] 12-12-2024 11:06-0400 Respiratory rate 16 /min Dr. Danielle Paige DO Work Phone: [facility] 12-12-2024 11:06-0400 SaO2% (BldA) [Mass fraction] 93 % Dr. Danielle Paige DO Work Phone: [facility] 12-12-2024 11:06-0400 Systolic blood pressure 100 mm[Hg] Dr. Danielle Paige DO Work Phone: [facility] 12-02-2024 13:24-0400 Body temperature 97.9 [degF] Dr. Danielle Paige DO Work Phone: [facility] 12-02-2024 13:24-0400 Diastolic blood pressure 68 mm[Hg] Dr. Danielle Paige DO Work Phone: [facility] 12-02-2024 13:24-0400 Heart rate 75 /min Dr. Danielle Paige DO Work Phone: [facility] 12-02-2024 13:24-0400 Respiratory rate 16 /min Dr. Danielle Paige DO Work Phone: [facility] 12-02-2024 13:24-0400 SaO2% (BldA) [Mass fraction] 98 % Dr. Danielle Paige DO Work Phone: [facility] 12-02-2024 13:24-0400 Systolic blood pressure 123 mm[Hg] Dr. Danielle Paige DO Work Phone: [facility] 12-02-2024 11:45-0400 Inhaled oxygen flow rate 2 L/min Dr. Danielle Paige DO Work Phone: [facility] 12-02-2024 08:13-0400 Body height 165.[address] Danielle Paige DO Work Phone: [facility] 12-02-2024 08:13-0400 Body mass index (BMI) [Ratio] 22 kg/m2 Dr. Danielle Paige DO Work Phone: [facility] 12-02-2024 08:13-0400 Body weight [address] Danielle Paige DO Work Phone: [facility] 11-18-2024 09:06-0400 Body mass index (BMI) [Ratio] 22.4 kg/m2 Dr. Danielle Paige DO Work Phone: [facility] 11-18-2024 09:06-0400 Body temperature 97.6 [degF] Dr. Danielle Paige DO Work Phone: [facility] 11-18-2024 09:06-0400 Body weight 61.[address] Danielle Paige DO Work Phone: [facility] 11-18-2024 09:06-0400 Diastolic blood pressure 70 mm[Hg] Dr. Danielle Paige DO Work Phone: [facility] 11-18-2024 09:06-0400 Heart rate 74 /min Dr. Danielle Paige DO Work Phone: [facility] 11-18-2024 09:06-0400 Respiratory rate 17 /min Dr. Danielle Paige DO Work Phone: [facility] 11-18-2024 09:06-0400 SaO2% (BldA) [Mass fraction] 97 % Dr. Danielle Paige DO Work Phone: [facility] 11-18-2024 09:06-0400 Systolic blood pressure 110 mm[Hg] Dr. Danielle Paige DO Work Phone: [facility] 11-12-2024 09:07-0400 Body mass index (BMI) [Ratio] 23.8 kg/m2 Dr. Danielle Paige DO Work Phone: [facility] 11-12-2024 09:07-0400 Body weight [address] Danielle Paige DO Work Phone: [facility] 11-12-2024 09:07-0400 Diastolic blood pressure 67 mm[Hg] Dr. aDnielle Paige DO Work Phone: [facility] 11-12-2024 09:07-0400 Heart rate 75 /min Dr. Danielle Paige DO Work Phone: [facility] 11-12-2024 09:07-0400 Respiratory rate 16 /min Dr. Danielle Paige DO Work Phone: [facility] 11-12-2024 09:07-0400 SaO2% (BldA) [Mass fraction] 96 % Dr. Danielle Paige DO Work Phone: [facility] 11-12-2024 09:07-0400 Systolic blood pressure 103 mm[Hg] Dr. Danielle Paige DO Work Phone: [facility] 10-18-2024 10:26-0400 Body height 160.[address] Danielle Paige DO Work Phone: [facility] 10-18-2024 10:26-0400 Body mass index (BMI) [Ratio] 23.3 kg/m2 Dr. Danielle Paige DO Work Phone: [facility] 10-18-2024 10:26-0400 Body temperature 97.3 [degF] Dr. Danielle Paige DO Work Phone: [facility] 10-18-2024 10:26-0400 Body weight 59.[address] Danielle Paige DO Work Phone: [facility] 10-18-2024 10:26-0400 Diastolic blood pressure 69 mm[Hg] Dr. Danielle Paige DO Work Phone: [facility] 10-18-2024 10:26-0400 Heart rate 80 /min Dr. Danielle Paige DO Work Phone: [facility] 10-18-2024 10:26-0400 Respiratory rate 16 /min Dr. Danielle Paige DO Work Phone: [facility] 10-18-2024 10:26-0400 SaO2% (BldA) [Mass fraction] 99 % Dr. Danielle Paige DO Work Phone: [facility] 10-18-2024 10:26-0400 Systolic blood pressure 110 mm[Hg] Dr. Danielle Paige DO Work Phone: [facility] 10-17-2024 13:12-0400 Body mass index (BMI) [Ratio] 24 kg/m2 Dr. Danielle Paige DO Work Phone: [facility] 10-17-2024 13:12-0400 Body weight 61.[address] Danielle Paige DO Work Phone: [facility] 10-17-2024 13:12-0400 Diastolic blood pressure 66 mm[Hg] Dr. Danielle Paige DO Work Phone: [facility] 10-17-2024 13:12-0400 Heart rate 83 /min Dr. Danielle Paige DO Work Phone: [facility] 10-17-2024 13:12-0400 Respiratory rate 16 /min Dr. Danielle Paige DO Work Phone: [facility] 10-17-2024 13:12-0400 SaO2% (BldA) [Mass fraction] 96 % Dr. Danielle Paige DO Work Phone: [facility] 10-17-2024 13:12-0400 Systolic blood pressure 101 mm[Hg] Dr. Danielle Paige DO Work Phone: [facility] 10-10-2024 07:53-0400 Body temperature 97.6 [degF] Dr. Danielle Paige DO Work Phone: [facility] 10-10-2024 07:53-0400 Diastolic blood pressure 72 mm[Hg] Dr. Danielle Paige DO Work Phone: [facility] 10-10-2024 07:53-0400 Heart rate 88 /min Dr. Danielle Paige DO Work Phone: [facility] 10-10-2024 07:53-0400 Respiratory rate 16 /min Dr. Danielle Paige DO Work Phone: [facility] 10-10-2024 07:53-0400 SaO2% (BldA) [Mass fraction] 97 % Dr. Danielle Paige DO Work Phone: [facility] 10-10-2024 07:53-0400 Systolic blood pressure 101 mm[Hg] Dr. Danielle Paige DO Work Phone: [facility] 10-10-2024 06:17-0400 Body height 160.[address] Danielle Paige DO Work Phone: [facility] 10-10-2024 06:17-0400 Body mass index (BMI) [Ratio] 24 kg/m2 Dr. Danielle Paige DO Work Phone: [facility] 10-10-2024 06:17-0400 Body weight 61.[address] Danielle Paige DO Work Phone: [facility] 09-05-2024 08:02-0500 Body height 165.[address] Danielle Paige DO Work Phone: [facility] 09-05-2024 08:02-0500 Body mass index (BMI) [Ratio] 22.4 kg/m2 Dr. Danielle Paige DO Work Phone: [facility] 09-05-2024 08:02-0500 Body temperature 97.2 [degF] Dr. Danielle Paige DO Work Phone: [facility] 09-05-2024 08:02-0500 Body weight 61.[address] Danielle Paige DO Work Phone: [facility] 09-05-2024 08:02-0500 Diastolic blood pressure 65 mm[Hg] Dr. Danielle Paige DO Work Phone: [facility] 09-05-2024 08:02-0500 Heart rate 87 /min Dr. Danielle Paige DO Work Phone: [facility] 09-05-2024 08:02-0500 Respiratory rate 18 /min Dr. Danielle Paige DO Work Phone: [facility] 09-05-2024 08:02-0500 SaO2% (BldA) [Mass fraction] 100 % Dr. Danielle Paige DO Work Phone: [facility] 09-05-2024 08:02-0500 Systolic blood pressure 102 mm[Hg] Dr. Danielle Paige DO Work Phone: [facility] 08-27-2024 13:22-0500 Body mass index (BMI) [Ratio] 22.6 kg/m2 Dr. Danielle Paige DO Work Phone: [facility] 08-27-2024 13:22-0500 Body weight 61.[address] Danielle Paige DO Work Phone: [facility] 08-27-2024 13:22-0500 Diastolic blood pressure 70 mm[Hg] Dr. Danielle Paige DO Work Phone: [facility] 08-27-2024 13:22-0500 Heart rate 79 /min Dr. Danielle Paige DO Work Phone: [facility] 08-27-2024 13:22-0500 Respiratory rate 16 /min Dr. Danielle Paige DO Work Phone: [facility] 08-27-2024 13:22-0500 SaO2% (BldA) [Mass fraction] 95 % Dr. Danielle Paige DO Work Phone: [facility] 08-27-2024 13:22-0500 Systolic blood pressure 105 mm[Hg] Dr. Danielle Paige DO Work Phone: [facility] 04-11-2024 11:02-0400 Body height 165.1 cm Vini Maurer MD Work Phone: [facility] 04-11-2024 11:02-0400 Body mass index (BMI) [Ratio] 22.96 kg/m2 Vini Muarer MD Work Phone: [facility] 04-11-2024 11:02-0400 Body weight 62.6 kg Vini Maurer MD Work Phone: [facility] 04-11-2024 11:02-0400 Diastolic blood pressure 72 mm[Hg] Vini Maurer MD Work Phone: [facility] 04-11-2024 11:02-0400 Systolic blood pressure 116 mm[Hg] Vini Maurer MD Work Phone: [facility] 10-20-2023 10:13-0400 Body height 165.[address] Danielle Paige Work Phone: [facility] 10-20-2023 10:13-0400 Body mass index (BMI) [Ratio] 23.3 kg/m2 Dr. Danielle Paige Work Phone: [facility] 10-20-2023 10:13-0400 Body temperature 96.9 [degF] Dr. Danielle Paige Work Phone: [facility] 10-20-2023 10:13-0400 Body weight 63.[address] Danielle Paige Work Phone: [facility] 10-20-2023 10:13-0400 Diastolic blood pressure 66 mm[Hg] Dr. Danielle Paige Work Phone: [facility] 10-20-2023 10:13-0400 Heart rate 76 /min Dr. Danielle Paige Work Phone: [facility] 10-20-2023 10:13-0400 Respiratory rate 16 /min Dr. Danielle Paige Work Phone: [facility] 10-20-2023 10:13-0400 SaO2% (BldA) [Mass fraction] 98 % Dr. Danielle Paige Work Phone: [facility] 10-20-2023 10:13-0400 Systolic blood pressure 101 mm[Hg] Dr. Danielle Paige Work Phone: [facility] 10-04-2023 12:09-0400 Body height 167.[address] Danielle Paige Work Phone: [facility] 10-04-2023 12:09-0400 Body mass index (BMI) [Ratio] 23.6 kg/m2 Dr. Danielle Paige Work Phone: [facility] 10-04-2023 12:09-0400 Body weight 66.[address] Danielle Paige Work Phone: [facility] 10-04-2023 12:09-0400 Diastolic blood pressure 65 mm[Hg] Dr. Danielle Paige Work Phone: [facility] 10-04-2023 12:09-0400 Heart rate 83 /min Dr. Danielle Paige Work Phone: [facility] 10-04-2023 12:09-0400 Respiratory rate 14 /min Dr. Danielle Paige Work Phone: [facility] 10-04-2023 12:09-0400 Systolic blood pressure 102 mm[Hg] Dr. Danielle Paige Work Phone: [facility] 08-01-2023 08:15-0500 Body height 167.[address] Danielle Paige Work Phone: [facility] 08-01-2023 08:15-0500 Body weight 63.[address] Danielle Paige Work Phone: [facility] 08-01-2023 08:15-0500 Heart rate 106 /min Dr. Danielle Paige Work Phone: [facility] 08-01-2023 08:15-0500 SaO2% (BldA) [Mass fraction] 96 % Dr. Danielle Paige Work Phone: [facility] 07-06-2023 06:49-0500 Body mass index (BMI) [Ratio] 22.9 kg/m2 Dr. Danielle Paige Work Phone: [facility] 07-06-2023 06:49-0500 Body temperature 97.1 [degF] Dr. Danielle Paige Work Phone: [facility] 07-06-2023 06:49-0500 Body weight 62.[address] Danielle Paige Work Phone: [facility] 07-06-2023 06:49-0500 Diastolic blood pressure 67 mm[Hg] Dr. Danielle Paige Work Phone: [facility] 07-06-2023 06:49-0500 Heart rate 99 /min Dr. Danielle Paige Work Phone: [facility] 07-06-2023 06:49-0500 Respiratory rate 18 /min Dr. Danielle Paige Work Phone: [facility] 07-06-2023 06:49-0500 SaO2% (BldA) [Mass fraction] 96 % Dr. Danielle Paige Work Phone: [facility] 07-06-2023 06:49-0500 Systolic blood pressure 107 mm[Hg] Dr. Danielle Paige Work Phone: [facility] [facility] 04-21-2023 11:09-0400 Body height 165.[address] Danielle Paige Work Phone: [facility] 04-21-2023 11:09-0400 Body mass index (BMI) [Ratio] 23.3 kg/m2 Dr. Danielle Paige Work Phone: [facility] 04-21-2023 11:09-0400 Body temperature 97.8 [degF] Dr. Danielle Paige Work Phone: [facility] 04-21-2023 11:09-0400 Body weight 63.[address] Danielle Paige Work Phone: [facility] 04-21-2023 11:09-0400 Diastolic blood pressure 70 mm[Hg] Dr. Danielle Paige Work Phone: [facility] 04-21-2023 11:09-0400 Heart rate 73 /min Dr. Danielle Paige Work Phone: [facility] 04-21-2023 11:09-0400 Respiratory rate 16 /min Dr. Danielle Paige Work Phone: [facility] 04-21-2023 11:09-0400 SaO2% (BldA) [Mass fraction] 98 % Dr. Danielle Paige Work Phone: [facility] 04-21-2023 11:09-0400 Systolic blood pressure 113 mm[Hg] Dr. Danielle Paige Work Phone: [facility] 01-09-2023 07:53-0400 Body height 165.[address] Danielle Paige Work Phone: [facility] 01-09-2023 07:53-0400 Body mass index (BMI) [Ratio] 23.9 kg/m2 Dr. Danielle Paige Work Phone: [facility] 01-09-2023 07:53-0400 Body temperature 97.6 [degF] Dr. Danielle Paige Work Phone: [facility] 01-09-2023 07:53-0400 Body weight 65.[address] Danielle Paige Work Phone: [facility] 01-09-2023 07:53-0400 Diastolic blood pressure 80 mm[Hg] Dr. Danielle Paige Work Phone: [facility] 01-09-2023 07:53-0400 Heart rate 69 /min Dr. Danielle Paige Work Phone: [facility] 01-09-2023 07:53-0400 Respiratory rate 16 /min Dr. Danielle Paige Work Phone: [facility] 01-09-2023 07:53-0400 SaO2% (BldA) [Mass fraction] 99 % Dr. Danielle Paige Work Phone: [facility] 01-09-2023 07:53-0400 Systolic blood pressure 118 mm[Hg] Dr. Danielle Paige Work Phone: [facility] 11-22-2022 10:43-0400 Body mass index (BMI) [Ratio] 23.8 kg/m2 Dr. Danielle Paige Work Phone: [facility] 11-22-2022 10:43-0400 Body temperature 97.2 [degF] Dr. Danielle Paige Work Phone: [facility] 11-22-2022 10:43-0400 Body weight 64.[address] Danielle Paige Work Phone: [facility] 11-22-2022 10:43-0400 Diastolic blood pressure 67 mm[Hg] Dr. Danielle Paige Work Phone: [facility] 11-22-2022 10:43-0400 Heart rate 77 /min Dr. Danielle Paige Work Phone: [facility] 11-22-2022 10:43-0400 Respiratory rate 18 /min Dr. Danielle Paige Work Phone: [facility] 11-22-2022 10:43-0400 SaO2% (BldA) [Mass fraction] 98 % Dr. Danielle Paige Work Phone: [facility] 11-22-2022 10:43-0400 Systolic blood pressure 112 mm[Hg] Dr. Danielle Paige Work Phone: [facility] 10-21-2022 10:46-0400 Body height 165.1 cm [facility] 10-21-2022 10:46-0400 Body mass index (BMI) [Ratio] 23.3 kg/m2 [facility] 10-21-2022 10:46-0400 Body temperature 97.4 [degF] [facility] 10-21-2022 10:46-0400 Body weight 63.5 kg [facility] 10-21-2022 10:46-0400 Diastolic blood pressure 68 mm[Hg] [facility] 10-21-2022 10:46-0400 Heart rate 69 /min [facility] 10-21-2022 10:46-0400 Respiratory rate 16 /min [facility] 10-21-2022 10:46-0400 SaO2% (BldA) [Mass fraction] 96 % [facility] 10-21-2022 10:46-0400 Systolic blood pressure 112 mm[Hg] [facility] 06-02-2022 10:48-0500 Body height 165.[address] Danielle Paige Work Phone: [facility] 06-02-2022 10:48-0500 Body mass index (BMI) [Ratio] 23.9 kg/m2 Dr. Danielle Paige Work Phone: [facility] 06-02-2022 10:48-0500 Body temperature 94.6 [degF] Dr. Danielle Paige Work Phone: [facility] 06-02-2022 10:48-0500 Body weight 65.[address] Danielle Paige Work Phone: [facility] 06-02-2022 10:48-0500 Diastolic blood pressure 66 mm[Hg] Dr. Danielle Paige Work Phone: [facility] 06-02-2022 10:48-0500 Heart rate 76 /min Dr. Danielle Paige Work Phone: [facility] 06-02-2022 10:48-0500 Respiratory rate 16 /min Dr. Danielle Paige Work Phone: [facility] 06-02-2022 10:48-0500 SaO2% (BldA) [Mass fraction] 96 % Dr. Danielle Paige Work Phone: [facility] 06-02-2022 10:48-0500 Systolic blood pressure 98 mm[Hg] Dr. Danielle Paige Work Phone: [facility] 10-22-2021 09:54-0400 Body height 165.1 cm [facility] Work Phone: 10-22-2021 09:54-0400 Body temperature 96.3 [degF] [facility] Work Phone: 10-22-2021 09:54-0400 Diastolic blood pressure 66 mm[Hg] [facility] Work Phone: 10-22-2021 09:54-0400 Heart rate 76 /min [facility] Work Phone: 10-22-2021 09:54-0400 Respiratory rate 16 /min [facility] Work Phone: 10-22-2021 09:54-0400 SaO2% (BldA) [Mass fraction] 98 % [facility] Work Phone: 10-22-2021 09:54-0400 Systolic blood pressure 110 mm[Hg] [facility] Work Phone: 11-09-2020 04:56-0400 Body temperature 97.81 [degF] Rosemarie Mckeon MD Work Phone: [facility] Work Phone: 11-09-2020 04:56-0400 Diastolic blood pressure 79 mm[Hg] Rosemarie Mckeon MD Work Phone: [facility] Work Phone: 11-09-2020 04:56-0400 Heart rate 82 /min Rosemarie Mckeon MD Work Phone: [facility] Work Phone: 11-09-2020 04:56-0400 Respiratory rate 12 /min Rosemarie Mckeon MD Work Phone: [facility] Work Phone: 11-09-2020 04:56-0400 SaO2% (BldA) [Mass fraction] 96 % Rosemarie Mckeon MD Work Phone: [email or web address] Work Phone: 11-09-2020 04:56-0400 Systolic blood pressure 110 mm[Hg] Rosemarie Mckeon MD Work Phone: [email or web address] Work Phone: 11-06-2020 00:00-0400 Body mass index (BMI) [Ratio] 24.1 kg/m2 Rosemarie Mckeon MD Work Phone: [facility] Work Phone: 11-06-2020 00:00-0400 Body weight 65.7 kg Rosemarie Mckeon MD Work Phone: [email or web address] Work Phone: 11-05-2020 23:17-0400 Body height 165.1 cm Rosemarie Mckeon MD Work Phone: [email or web address] Work Phone: NEGATED: Highlighted [id number] 11:46-0400 BMI (Body Mass Index) 24.29 kg/m2 Estrellita Anderson AT [facility] Work Phone: NEGATED: Highlighted [id number] 11:46-0400 Body weight 63.96 kg Estrellita Anderson AT [facility] Work Phone: NEGATED: Highlighted [id number] 11:46-0400 Body weight 64 kg Estrellita Anderson AT [facility] Work Phone: NEGATED: Highlighted [id number] 11:46-0400 BP Diastolic 70 mm[Hg] Estrellita Anderson AT [facility] Work Phone: NEGATED: Highlighted [id number] 11:46-0400 BP Systolic 102 mm[Hg] Estrellita Anderson AT [facility] Work Phone: NEGATED: Highlighted [id number] 11:46-0400 Height 162.56 cm Estrellita Anderson AT [facility] Work Phone: NEGATED: Highlighted [id number] 11:46-0400 Height 163 cm Estrellita Anderson AT [facility] Work Phone: NEGATED: Highlighted [id number] 11:46-0400 Pulse (Heart Rate) 80 /min Estrellita Anderson AT [facility] Work Phone: Encounters Encounter Date Encounter Type Care Provider Facility Start: 01-23-2025 End: 01-23-2025 Patient encounter procedure Abril RAYMUNDO -[facility] Work Phone: Start: 01-23-2025 End: 01-23-[address] Danielle Paige DO Work Phone: -[facility] Start: 01-09-2025 End: 01-09-[address] Danielle Paige DO Work Phone: [facility] Work Phone: Start: 01-09-2025 End: 01-09-2025 Patient encounter procedure Ny BURNS -[facility] Work Phone: Start: 01-01-2025 End: 01-01-2025 Patient encounter procedure Savanna Gagnon BOAT FINISHER-C -[facility] Work Phone: Start: 01-01-2025 End: 01-01-[address] Danielle Paige DO Work Phone: [facility] Work Phone: Start: 01-01-2025 End: 01-01-2025 ambulatory Savanna Gagnon Facility:[facility] Start: 12-23-2024 End: 12-23-[address] Danielle Paige DO Work Phone: [facility] Work Phone: Start: 12-23-2024 End: 12-23-2024 Patient encounter procedure Catalina Miranda BOAT FINISHER-C -[facility] [place] Work Phone: Start: 12-23-2024 End: 12-23-2024 ambulatory Catalina Miranda Facility:[facility] Start: 12-19-2024 Non-patient / Non-visit Dr. Brooke Shukla MD -[facility] Work Phone: Start: 12-19-2024 Encounter for other preprocedural examination Carlos Parikh [facility] Start: 12-18-2024 Non-patient / Non-visit Dr. Brooke Shukla MD -[facility] Work Phone: Start: 12-17-2024 ambulatory Berkley Shukla Facility :[facility] Start: 12-17-2024 End: 12-19-2024 Evaluation and management of inpatient Dr. Berkley Shukla MD -Progressive Care Unit Work Phone: Start: 12-16-2024 End: 12-16-[address] Carlos Cano MD -[facility] Work Phone: Start: 12-16-2024 End: 12-16-[address] Danielle Paige DO Work Phone: [facility] Work Phone: Start: 12-12-2024 End: 12-12-2024 Patient encounter procedure Savanna RAYMUNDO -[facility] Work Phone: Start: 12-12-2024 End: 12-12-[address] Danielle Paige DO Work Phone: [facility] Work Phone: Start: 12-02-2024 ambulatory Carlos Cano Facility :[facility] Start: 12-02-2024 Non-patient / Non-visit Dr. Flaquita PAYNE -[facility] Start: 12-02-2024 End: 12-02-2024 Admission to same day surgery center Dr. Carlos Cano MD -[facility] Start: 12-02-2024 End: 12-02-[address] Danielle Paige DO Work Phone: [facility] Work Phone: Start: 11-18-2024 End: 11-18-[address] Carlos Cano MD -[facility] Work Phone: Start: 11-18-2024 End: 11-18-2024 ambulatory Carlos Cano Facility:[facility] Start: 11-12-2024 End: 11-12-2024 Patient encounter procedure Savanna RAYMUNDO -[facility] Work Phone: Start: 11-12-2024 End: 11-12-2024 ambulatory Savanna Gagnon Facility:[facility] Start: 11-11-2024 End: 11-11-2024 Patient encounter procedure Savanna RAYMUNDO -[facility] Work Phone: Start: 11-11-2024 End: 11-11-2024 ambulatory Savanna Gagnon Facility:[facility] Start: 10-18-2024 End: 10-18-[address] Danielle Paige DO -Medical Out Work Phone: Start: 10-18-2024 End: 10-18-[address] Danielle Paige DO Work Phone: [facility] Work Phone: Start: 10-17-2024 End: 10-17-[address] Danielle Paige DO Work Phone: [facility] Work Phone: Start: 10-17-2024 End: 10-17-2024 Patient encounter procedure Savanna OJEDAC -Laboratory Work Phone: Start: 10-17-2024 End: 10-17-2024 Patient encounter procedure Savanna OJEDAC -[facility] Work Phone: Start: 10-17-2024 End: 10-17-2024 ambulatory Savanna Gagnon Facility:[facility] Start: 10-17-2024 End: 10-17-2024 ambulatory Savanna Gagnon Facility:[facility] Start: 10-15-2024 End: 10-15-[address] Danielle Paige DO Work Phone: [facility] Work Phone: Start: 10-15-2024 End: 10-15-2024 Patient encounter procedure Savanna OJEDAC -[facility] Work Phone: Start: 10-15-2024 End: 10-15-2024 ambulatory Savanna Gagnon Facility:[facility] Start: 10-10-2024 ambulatory Aron Frank Facility :[facility] Start: 10-10-2024 Non-patient / Non-visit Aron Valles nd DO -[facility] Start: 10-10-2024 End: 10-10-2024 Admission to same day surgery center Aron Frank DO -Endoscopy Work Phone: Start: 10-10-2024 End: 10-10-[address] Danielle Paige DO Work Phone: [facility] Work Phone: Start: 10-08-2024 End: 10-08-[address] Danielle Paige DO Work Phone: [facility] Work Phone: Start: 10-08-2024 End: 10-08-2024 Patient encounter procedure Savanna Gagnon BOAT FINISHER-C -Ultrasound, [facility] Work Phone: Start: 10-08-2024 End: 10-08-2024 ambulatory Savanna Gagnon Facility:[facility] Start: 09-27-2024 End: 09-27-[address] Danielle Paige DO Work Phone: [facility] Work Phone: Start: 09-27-2024 End: 09-27-2024 Patient encounter procedure Savanna Gagnon BOAT FINISHER-C -Radiology, [facility] Work Phone: Start: 09-27-2024 End: 09-27-2024 ambulatory Savanna Gagnon Facility:[facility] Start: 09-24-2024 End: 09-24-[address] Danielle Paige DO Work Phone: [facility] Work Phone: Start: 09-24-2024 End: 09-24-2024 Patient encounter procedure Savanna Gagnon NP-C -Radiology, [facility] Work Phone: Start: 09-23-2024 End: 09-24-[address] Danielle Paige DO Work Phone: [facility] Work Phone: Start: 09-23-2024 End: 09-23-2024 Patient encounter procedure Aron Frank DO -[facility] Start: 09-23-2024 End: 09-23-2024 ambulatory Aron Frank Facility:[facility] Start: 09-05-2024 End: 09-05-2024 Patient encounter procedure Abril Connors BOAT FINISHER-C -[facility] Work Phone: Start: 09-05-2024 End: 09-05-2024 ambulatory Daniellekenny Samaniegogiovanni Facility:[facility] Start: 08-27-2024 End: 08-27-2024 Patient encounter procedure Savanna Gagnon BOAT FINISHER-C -[facility] Work Phone: Start: 08-27-2024 End: 08-27-2024 ambulatory Savanna Gagnon Facility:[facility] Start: 08-07-2024 End: 08-07-[address] Danielle Paige DO -[facility] Start: 08-07-2024 End: 08-07-2024 [facility] Start: 04-19-2024 End: 04-19-2024 ambulatory [facility] Facility:[facility] Start: 04-11-2024 End: 04-11-2024 Telephone encounter Vini [...] (B otox) Start: 02-22-2024 End: 02-22-2024 ambulatory [facility] Facility:[facility] Start: 11-17-2023 Non-patient / Non-visit Dr. Jasmyne Paige Work Phone: [facility] Work Phone: Start: 11-16-2023 Non-patient / Non-visit Dr. Jasmyne Paige Work Phone: [facility] Start: 11-16-2023 End: 11-16-[address] Danielle Paige Work Phone: [facility] Work Phone: Start: 11-16-2023 End: 11-16-[address] [facility] Start: 11-14-2023 Non-patient / Non-visit Dr. Jasmyne Paige Work Phone: [facility] Work Phone: Start: 11-03-2023 Non-patient / Non-visit Dr. Jasmyne Paige Work Phone: [facility] Start: 11-03-2023 End: 11-03-[address] Danielle Paige Work Phone: [facility] Work Phone: Start: 11-03-2023 End: 11-03-[address] [facility] Start: 11-02-2023 End: 11-02-[address] Danielle Paige Work Phone: [facility] Work Phone: Start: 11-02-2023 End: 11-02-[address] Danielle Paige Work Phone: [facility]-Laboratory,Futur e Work Phone: Start: 10-20-2023 End: 10-20-[address] Danielle Paige Work Phone: [facility] Work Phone: Start: 10-20-2023 End: 10-20-[address] Danielle Paige Work Phone: [facility]-Medical Out Work Phone: Start: 10-17-2023 End: 10-17-[address] Danielle Paige Work Phone: [facility] Work Phone: Start: 10-17-2023 End: 10-17-[address] Danielle Paige Work Phone: [facility]-Laboratory Work Phone: Start: 10-12-2023 End: 10-12-2023 ambulatory SAVANA L LOYD Facility:[facility] Start: 10-04-2023 End: 10-04-[address] Danielle Paige Work Phone: [facility] Work Phone: Start: 10-04-2023 End: 10-04-[address] Danielle Paige Work Phone: [facility]-Laboratory Work Phone: Start: 10-04-2023 End: 10-04-[address] Danielle Paige Work Phone: [facility] Work Phone: Start: 08-14-2023 Non-patient / Non-visit Dr. Jasmyne Paige Work Phone: [facility] Work Phone: Start: 08-14-2023 End: 08-14-[address] Danielle Paige Work Phone: [facility] Work Phone: Start: 08-14-2023 End: 08-14-[address] Danielle Paige Work Phone: [facility]-Pulmonary Services/Neurology Work Phone: Start: 08-03-2023 Non-patient / Non-visit Dr. Jasmyne Paige Work Phone: [facility] Start: 08-01-2023 End: 08-01-[address] Danielle Paige Work Phone: [facility] Work Phone: Start: 08-01-2023 End: 08-01-[address] Danielle Paige Work Phone: [facility]-Pulmonary Services/Neurology Work Phone: Start: 07-06-2023 End: 07-06-[address] Danielle Paige Work Phone: [facility]-Pulmonary Medicine [facility] Work Phone: Start: 05-05-2023 End: 05-05-[address] Danielle Paige Work Phone: [facility] Work Phone: Start: 05-05-2023 End: 05-05-[address] Danielle Paige Work Phone: [facility] Start: 04-21-2023 End: 04-21-[address] Danielle Paige Work Phone: [facility]-Medical Out Work Phone: Start: 04-19-2023 Non-patient / Non-visit Dr. Jasmyne Paige Work Phone: [facility] Start: 04-19-2023 End: 04-19-[address] [facility] Work [facility]: Start: 03-10-2023 End: 03-10-[address] Danielle Paige Work Phone: [facility] Work Phone: Start: 03-10-2023 End: 03-10-[address] [facility] Start: 01-26-2023 End: 01-26-[address] Danielle Paige Work Phone: [facility] Start: 01-09-2023 End: 01-09-[address] [facility] Work Phone: Start: 11-22-2022 End: 11-22-[address] [facility] Work Phone: Start: 10-21-2022 End: 10-21-2022 ambulatory [facility] Work Phone: Start: 10-21-2022 End: 10-21-2022 Patient encounter procedure [facility] Out Start: 09-28-2022 End: 09-28-2022 ambulatory [facility] Work Phone: Start: 09-28-2022 End: 09-28-[address] [facility] Start: 08-24-2022 End: 08-24-[address] Danielle Paige Work Phone: [facility] Work Phone: Start: 08-24-2022 End: 08-24-[address] Danielle Paige Work Phone: [facility] Start: 06-02-2022 End: 06-02-[address] 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 Danielle Paige DO Work Phone: Start: 12-23-2024 Plain X-ray abdomen Dr. Danielle Paige DO Work Phone: Start: 12-19-[address] Danielle Paige DO Work Phone: Start: 12-17-2024 Urnls dip stick/tabl et reagent auto microscopy Dr. Danielle Paige DO Work Phone: Start: 12-17-2024 Computed tomography of abdomen and pelvis with intravenous contrast Dr. Danielle Paige DO Work Phone: Start: 12-17-[address] Danielle Paige DO Work Phone: Start: 12-17-[address] Danielle Paige DO Work Phone: Start: 12-02-[address] Danielle Paige DO Work Phone: Start: 11-11-2024 Computed tomography of abdomen and pelvis with contrast Dr. Danielle Paige DO Work Phone: Start: 10-17-[address] Marnie Paige DO Work Phone: Comment on above: Performed at: - [facility] [address] [id number] Director: Donny Armendariz PhD, Phone: [phone] Start: 10-17-[address] Ramona Paige DO Work Phone: Comment on above: The atypical pANCA p attern has been observed in asignificant percentage of patients with ulcerative colitis,primary sclerosing cholangitis and autoimmune hepatitis.Performed at: [email or web address] [address] [id number] Director: Donny Armendariz PhD, Phone: [phone] Start: 10-17-2024 Antibody to centrome re measurement [...] on above: Test not performed Start: 10-17-2024 DIRECTOR ZONE antibody measurement Dr. Danielle Paige DO Work [...] Work Phone: Comment on above: Performed at: [facility] [address] [id number] Director: Donny Armendariz PhD, Phone: [phone] Start: 08-07-2024 Antibody to centrome re measurement [...] Danielle Paige DO Work Phone: Start: 08-07-[address]24 [address] antibody measurement Dr. Danielle Paige DO Work Phone: Comment on above: Test not performed Start: 04-11-2024 Urnls dip stick/tabl et rgnt auto w/o microscopy Vini Maurer MD Work Phone: Start: 11-16-2023 Radionuclide imaging of perfusion of myocardium under exercise stress Dr. Danielle Paige Work Phone: Start: 08-24-2022 Plain chest X-ray Dr. Nick Paige Work Phone: Start: 11-09-2020 Echo tthrc r-t 2d w/ wom-mode compl spec&colr d Brian Bonds MD Work [...] History of cholecystectomy S/P cholecyste ctomy Dr. Carlos Caon MD Urine culture NEGATED: Highlighted rowStart: 02-05-2019 End: 02-05-2019 Documentation of current medications Estrellita Anderson AT Plan of Treatment Date Care Activity Detail Author Start: 02-05-2025 ambulatory Facility:[facility] Start: 12-19-2024 Patient discharge [facility] Start: 12-18-2024 Following clinical pathway protocol [facility] Start: 12-18-2024 Assessment of risk of venous thromboembolism [facility] Start: 12-18-2024 Fall prevention [facility] Start: 12-18-2024 Incentive spirometry [facility] Start: 12-18-2024 Inhalation therapy procedure [facility] Start: 12-18-2024 Insertion of catheter into peripheral vein [facility] Start: 12-18-2024 Introduction of urinary catheter [facility] Start: 12-18-2024 Measuring intake and output [facility] Start: 12-18-2024 Oxygen therapy [facility] Start: 12-18-2024 Providing care according to standard [facility] Start: 12-18-2024 Provision of activity privileges [facility] Start: 12-18-2024 Referral to occupational therapist [facility] Start: 12-18-2024 Referral to service [facility] Start: 12-18-2024 [facility] Start: 12-18-2024 Patient referral to dietitian [facility] Start: 12-17-2024 Verification routine [facility] Start: 12-17-2024 Hospital admission, emergency, from emergency room, medical nature [facility] Start: 12-17-2024 Admission procedure [facility] Start: 12-17-2024 [facility] Start: 12-17-2024 Bacteria identified in Urine by Culture Urine Culture [facility] Start: 12-17-2024 Urine culture [facility] Start: 12-02-2024 Anes intraperitoneal upper abdomen w/laps nos ANES IPER UPR ABD NOS [facility] Start: 12-02-2024 Laps surg cholecystectomy w/cholangiography LAPARO CHOLECYSTECTOMY/GRAPH [facility] Start: 12-02-2024 Patient discharge [facility] Start: 11-25-2024 Electrocardiographic procedure [facility] Start: 11-12-2024 Patient referral [facility] Work Phone: Start: 10-17-2024 Cytoplasmic ANCA Screen [facility] Start: 10-17-2024 Mitochondria Ab [Presence] in Serum [facility] Start: 10-17-2024 [facility] Start: 10-16-2024 End: 10-16-2024 Patient encounter procedure 10/16/2024 11:30 AM EDT Office Visit URO/Gynecology [address] [place] [address] Moni Husain MD [address] [place] [address] Cysto w/Botox [facility] Comment on above: Cysto w/Botox Start: 10-10-2024 Egd insert guide wire dilator passage esophagus EGD GUIDE WIRE INSERTION [facility] Start: 10-10-2024 Egd transoral biopsy single/multiple EGD BIOPSY SINGLE/MULTIPLE [facility] Start: 10-10-2024 Patient discharge [facility] Start: 10-08-2024 Ultrasonography of abdomen Abdomen Limited [facility] Start: 04-11-2024 End: 04-11-2024 Patient encounter procedure 04/11/2024 11:00 AM EDT Office Visit URO/Gynecology [address] [place] [address] Vini Maurer MD [address] [address] Cysto w/ Botox [facility] Comment on above: Cysto w/ Botox Start: 03-17-2024 Covid-19 Vaccine ( season) Covid-19 Vaccine () [facility] Start: 03-17-2024 Covid-19 Vaccine () Covid-19 Vaccine () [facility] Start: 03-17-2024 Influenza vaccination Influenza Vaccine (#1) [facility] Start: 11-10-2023 Diabetes Screening Diabetes Screening [facility] Start: 07-17-2023 Advance Directive Discussion Advance Directive Discussion [facility] Start: 03-17-2021 Influenza vaccination Flu vaccine (Season Ended) [facility] Work Phone: Start: 11-24-2020 End: 11-24-2020 Patient encounter procedure 11/24/2020 Office Visit Cardiothoracic Surgery MiladysBobby, EQUITIES TRADER - BAG MACHINE SET UP OPERATOR [address] [place] [address] [phone] [facility] Start: 10-14-2020 Annual Wellness Visit (AWV) Annual Wellness Visit (AWV) [facility] Work Phone: Start: 02-05-2019 End: 02-05-2019 Appointment Appointment [facility] Work Phone: Start: 2017 RSV Vaccine (1 - 1-dose 75+ series) RSV Vaccine (1 - 1-dose 75+ series) [facility] Start: 2007 Pneumococcal 65+ years Vaccine (2 of 2 - PPSV23) Pneumococcal 65+ years Vaccine (2 of 2 - PPSV23) [facility] Work Phone: Start: 2007 Screening for osteoporosis Bone Density Screening [facility] Start: 2002 RSV Vaccine (1 - 1-dose 60+ series) RSV Vaccine (1 - 1-dose 60+ series) [facility] Start: 1997 Screening for osteoporosis DEXA (modify frequency per FRAX score) [facility] Work Phone: Start: 1992 Shingles Vaccine (1 of 2) Shingles Vaccine (1 of 2) [facility] Work Phone: Start: 1961 DTaP/Tdap/Td vaccine (1 - Tdap) DTaP/Tdap/Td vaccine (1 - Tdap) [facility] Work Phone: Start: 1961 Urine microalbumin profile DTaP,Tdap,Td Vaccine (1 - Tdap) [facility] Start: 1960 Anxiety Screening Anxiety Screening [facility] Start: 1960 Depression Screening Depression Screening [facility] Start: 1958 COVID-19 Vaccine (1) COVID-19 Vaccine (1) [facility] Work Phone: Start: 1942 Hepatitis C screening Hepatitis C screen [facility] Work Phone: Acapella Acapella Respira tory Care Routine Daily until discontinued starting 11/05/2020 [facility] Work Phone: Comment on above: Daily until discontinued starting 2020 CBC W Auto Different ial panel - Blood [facility] CT Abdomen and Pelvi s W contrast IV [facility] CYSTOSCOPY [facility] CYSTOSCOPY [facility] Procedures Routine OAB (overactive bladder) Ordered: 04/11/2024 [facility] Work Phone: Comment on above: Ordered: 04/11/2024 Erythrocyte mean cor puscular volume determination [facility] Erythrocyte mean cor puscular volume determination [facility] Erythrocyte mean cor puscular volume determination [facility] Erythrocyte mean cor puscular volume determination [facility] Erythrocyte mean cor puscular volume determination [facility] Hematocrit [Volume F raction] of Blood [facility] Hematocrit [Volume F raction] of Blood [facility] Hematocrit [Volume F raction] of Blood [facility] Hematocrit [Volume F raction] of Blood [facility] Hematocrit [Volume F raction] of Blood [facility] Hemoglobin [Mass/vol ume] in Blood [facility] Hemoglobin [Mass/vol ume] in Blood [facility] Hemoglobin [Mass/vol ume] in Blood [facility] Hemoglobin [Mass/vol ume] in Blood [facility] Hemoglobin [Mass/vol ume] in Blood [facility] Leukocytes [#/volume ] in Blood [facility] Leukocytes [#/volume ] in Blood [facility] Leukocytes [#/volume ] in Blood [facility] Leukocytes [#/volume ] in Blood [facility] Leukocytes [#/volume ] in Blood [facility] Mean corpuscular hem oglobin concentration determination [facility] Mean corpuscular hem oglobin concentration determination [facility] Mean corpuscular hem oglobin concentration determination [facility] Mean corpuscular hem oglobin concentration determination [facility] Mean corpuscular hem oglobin concentration determination [facility] Mean corpuscular hem oglobin determination [facility] Mean corpuscular hem oglobin determination [facility] Mean corpuscular hem oglobin determination [facility] Mean corpuscular hem oglobin determination [facility] Mean corpuscular hem oglobin determination [facility] Nebulizer therapy HHN Treatment Respiratory Care Routine 0600, 1000, 1400, 1800, 2200 until discontinued starting 11/05/2020 [employer] Work Phone: Comment on above: 0600, 1000, 1400, 1800, 2200 until disco ntinued starting 11/05/2020 Neutrophil count [facility] Neutrophil count [facility] Neutrophil count [facility] Neutrophil count [facility] Neutrophil count [facility] Neutrophil cytoplasm ic Ab.classic [Units/volume] in Serum [facility] Neutrophil percent differential count [facility] Neutrophil percent differential count [facility] Neutrophil percent differential count [facility] Neutrophil percent differential count [facility] Neutrophil percent differential count [facility] NM Heart Views W str ess and W radionuclide IV [facility] Nuclear Ab [Presence ] in Serum [facility] Oxygen therapy [[facility] [place] Initiate Oxygen Therapy Protocol Respiratory Care Routine Daily until discontinued starting 11/05/2020 [employer] Work Phone: Comment on above: Daily until discontinued starting 2020 P-ANCA measurement [facility] Patient Education ED UTI Fem Ch [facility] Work Phone: Patient referral [facility] Work Phone: Platelets [#/volume] in Blood [facility] Platelets [#/volume] in Blood [facility] Platelets [#/volume] in Blood [facility] Platelets [#/volume] in Blood [facility] Platelets [#/volume] in Blood [facility] Radionuclide imaging of perfusion of myocardium under exercise stress [facility] Red blood cell count [facility] Red blood cell count [facility] Red blood cell count [facility] Red blood cell count [facility] Red blood cell count [facility] Red cell distributio n width determination [facility] Red cell distributio n width determination [facility] Red cell distributio n width determination [facility] Red cell distributio n width determination [facility] Red cell distributio n width determination [facility] Spirometry panel Incentive david metry RT Respiratory [...] 11/05/2020 5:20 PM EDT [facility] Work Phone: [facility] XR Abdomen Single view [facility] Immunizations Immunization Date Immunization Notes Care Provider [facility] 05-12-2023 influenza, injectabl e, quadrivalent, preservative free Dr. Danielle Paige Work Phone: [facility] 05-12-2023 influenza virus vaccine, unspecified formulation Vini Maurer MD Work Phone: [facility] 04-15-2016 influenza, injectabl e, quadrivalent, preservative free Dr. Danielle Paige Work Phone: [facility] 04-15-2016 influenza, seasonal, injectable [facility] 05-07-2014 influenza, injectabl e, quadrivalent, preservative free Dr. Danielle Paige Work Phone: [facility] 05-07-2014 influenza, seasonal, injectable [facility] 07-25-2013 Influenza virus vaccine [facility] Payers Date Payer Category Payer Self-pay [id number] 2023 Department of [facility] ( and others) [id number] 2020 [employer] ( and others) [id number] 2015 Medicare MEDICARE MEDICAR E A AND B [id number] 2015-Present [phone] [address] [address] [place] [address] Medicare [id number] 2015 Unknown FOR LIFE [id number] 2015-Present [phone] [address] [place] [address] Indemnity [id number] 2015 [employer] ( and others) [id number] 1959 [employer] ( and others) [id number] 1959 Medicare [id number] 1942 Unknown [id number] 2.16.840.1.885944.3.579.2 .598 Unknown [id number] 2.16.840.1.975436.3.579.2 .462 Unknown [id number] 2.16.840.1.731240.3.579.2 .462 Unknown [id number] 2.16.840.1.306647.3.579.2 .462 Unknown [id number] 2.16.840.1.217197.3.579.2 .462 Unknown [id number] 2.16.840.1.798925.3.579.2 .462 Unknown [id number] 2.16.840.1.835796.3.579.2 .462 Unknown [id number] 2.16.840.1.632760.3.579.2 .462 Unknown [id number] 2.16.840.1.940417.3.579.2 .462 Unknown [id number] 2.16.840.1.464842.3.579.2 .462 Unknown [id number] 2.16840.1.942242.3.579.2 .462 Unknown [id number] 2.16.840.1.118358.3.579.2 .462 Unknown [id number] 2.840.1.795970.3.579.2 .462 Unknown [id number] 2.16840.1.708002.3.579.2 .462 Unknown [id number] 2.840.1.503440.3.579.2 .462 Unknown [id number] 2.840.1.467217.3.579.2 .462 Unknown [id number] 2.840.1.808384.3.579.2 .462 Unknown [id number] 2.840.1.395503.3.579.2 .462 Unknown [id number] 2.840.1.559151.3.579.2 .462 Unknown [id number] 2.840.1.935957.3.579.2 .462 Unknown [id number] 2.840.1.382921.3.579.2 .462 Unknown [id number] 2.840.1.634287.3.579.2 .462 Unknown [id number] 2.840.1.674851.3.579.2 .462 Unknown [id number] 2.840.1.026867.3.579.2 .462 Unknown [id number] 2.840.1.579000.3.579.2 .462 Unknown [id number] 2.840.1.898595.3.579.2 .462 Unknown [id number] 2.840.1.426614.3.579.2 .462 Unknown [id number] 2.16.840.1.294711.3.579.2 .462 Unknown [id number] 2.16.840.1.149051.3.579.2 .462 Unknown [id number] 2.16.840.1.017271.3.579.2 .462 Unknown [id number] 2.16.840.1.723593.3.579.2 .462 Unknown [id number] 2.16.840.1.496446.3.579.2 .462 Unknown [id number] 2.16.840.1.092154.3.579.2 .462 Social History Date Type Detail Facility Start: 06-04-2021 End: 10-04-2023 Assertion Unknown if ever smoked [facility] Work Phone: Start: 11-06-2020 End: 01-01-2025 Tobacco smoking status MTIS Never smoker [facility] Start: 11-06-2020 End: 10-12-2023 Tobacco use and exposure Never used [facility] Start: 11-06-2020 Alcohol intake Ex-drinker (finding) [facility] Work Phone: Start: 10-14-2020 Alcohol Comment 3-4 X week a g lass of wine [facility] Work Phone: Start: 1940 Sex Assigned At Not on file [facility] Work Phone: Exposure to SARS-CoV-2 (event) Not sure [facility] Start: 1940 Sex Assigned At Female [facility] Start: 10-12-2023 Tobacco smoking status MTIS Ex-smoker [facility] History of tobacco use Current smoker [facility] Start: 10-12-2023 End: 04-11-2024 Alcoholic beverage intake Current drinker of alcohol (finding) [facility] Start: 10-12-2023 End: 04-11-2024 History of Social function [facility] Start: 10-12-2023 End: 04-11-2024 Tobacco use panel [facility] National Score (1-100), lower number is lower risk 35 [facility] Start: 10-12-2023 Tobacco Comment Smoked in High School [facility] Start: 10-03-2024 End: 10-22-2024 Sex Female (finding) [facility] NEGATED: Highlighted row Not [facility] Medical Equipment Procedure Code Equipment Code Equipment [...] 12-02-2024 Robot-assisted laparoscopic cholecystectomy without cholangiography CLIP,HEMOLOCK RABIA LEBRON [employer] Start: 12-02-2024 Goals Date Patient Goal Desired Activity /State Functional Status Date Assessment Result Facility 12-19-2024 Functional status Chair [facility] Work Phone: 12-18-2024 Functional status Tolerates Activity Well [facility] Work Phone: Mental Status Date Assessment Result Facility 12-19-2024 Cognitive function Voice/Name [facility] Work Phone: 12-02-2024 Cognitive function Voice/Name [facility] Work Phone: 10-18-2024 Cognitive function Level Of Cons ciousness Awake;Alert;Appropriate;Follow s Commands [facility] Work Phone: 10-10-2024 Cognitive function Voice/Name [facility] Work Phone: 10-10-2024 Cognitive function Patient Orien tation Person;Place;Time [facility] Work Phone: 10-20-2023 Cognitive function Awake;Alert;A ppropriate;Follow s Commands [facility] Work Phone: 04-21-2023 Cognitive function Awake;Alert;A ppropriate;Follow s Commands [facility] Work Phone: 10-22-2021 Cognitive function Voice/Name [facility] Work Phone: Clinical Notes 11-06-2020 to 01-02-2025 Note Date & Type Note Facility 01-02-2025 Radiology Diagnostic study note [facility] Imaging Services [address] [place] [address] Abdomen Single View MR#: [id number] Acct: [id number] Name: MARGIE FULTON Rep #: [id number] : 1940 F 84 From: Tuyet Gamino MD PCP: Dr. Danielle Paige, DO Status: REG CLI Study:Abdomen Single View Date of Exam: 01/01/25 Exam# [id number] Ordering Dr: Savanna Gagnon PROCEDURE: ABDOMEN SINGLE VIEW 01/01/2025 REASON FOR EXAM: R/O CONSTIPATION TECHNIQUE: ABDOMEN SINGLE VIEW COMPARISON: 12/23/2024. FINDINGS: Mild amount of fecal residue in the large bowels, slightly increased. Normal visualized lung bases. There is an unremarkable bowel gas pattern. There is no demonstrated free abdominal air. Normal visualized liver. Normal visualized spleen. Normal visualized kidneys. The soft tissue structures of the pelvis are unremarkable. Diffuse spondylosis. Stimulator device is again noted. RAD/Abdomen Single View IMPRESSION: Mild amount of fecal residue in the large bowels, slightly increased. Reading Location: [place] [address] CC: ZACKARY Gagnon; Dr. Danielle Paige DO ~ Water Pollution Specialist: Signed [facility] 12-24-2024 Radiology Diagnostic study note [facility] Imaging Services [address] [place] [id number] Abdomen Single View MR#: [id number] Acct: [id number] Name: MARGIE FULTNO Rep #: [id number] : 1940 F 84 From: Tuyet Gamino MD PCP: Dr. Danielle Paige DO Status: REG CLI Study:Abdomen Single View Date of Exam: 12/23/24 Exam# [id number] Ordering Dr: Ra lance Miranda BOAT FINISHERRolf PROCEDURE: ABDOMEN SINGLE VIEW 12/23/2024 REASON FOR EXAM: STOOL BURDEN TECHNIQUE: Single view abdomen. COMPARISON: CT scan on 12/17/2024. FINDINGS: Mild amount of fecal residue in the large bowels, slightly decreased. Presacral stimulator is again noted. Diffuse spondylosis. Normal visualized lung bases. There is an unremarkable bowel gas pattern. There is no demonstrated free abdominal air. Normal visualized liver. Normal visualized spleen. Normal visualized kidneys. The soft tissue structures of the pelvis are unremarkable. RAD/Abdomen Single View IMPRESSION: Mild amount of fecal residue in the large bowels, slightly decreased. Reading Location: [place] [address] CC: ZACKARY Miranda; Dr. Danielle Paige, DO ~ Water Pollution Specialist: Signed [facility] 12-19-2024 Discharge summary Note Date/Time December 19, 2024 12:07 pm [facility] Medical Records Department [address] [place] [address] Instructions for Home/Discharge Instructions 12/19/24 1206 MR#: [id number] Acct: [id number] Name: MARGIE FULTON Rep # :[id number] : 1940 84 From: Berkley Shukla MD PCP: Dr. Danielle Paige, Status:ADM IN Discharge Instructions Diet Discharge Diet: Low fat / Low cholesterol DC O2, CPAP, BIPAP needs Home O2 Discharge instructions: No Dressing / Incision Discharge Activity: Return to Normal Activity Weight Bearing Status: Weight bearing as tolerated Dressing / Incision Call your doctor if you observe: Fever of 101 or Higher, Shortness of breath, Dizziness, Swelling in the ankles, Chest pain and Uncontrolled pain Follow Up Care Test Results: Test results from this visit will be discussed in further detail at your follow-up appointment, if applicable. Discharge Plan Admission Admit Date/Time: 12/17/24 22:48 Primary Reason for Your Visit: UTI, constipation Attending Provider: Berkley Shukla Primary Care Provider: Danielle Paige Consulting Providers: Ale Newton Instructions Patient Instructions: ED UTI Fem Ch Discharge Orders/Prescriptions Prescriptions: New ciprofloxacin HCl [Cipro] 500 mg tablet 500 mg PO BID Qty: 10 0RF Continued mecobalamin (vitamin B12) 1,000 mcg tablet,chewable 1,000 mcg PO DAILY diltiazem HCl 30 mg tablet 30 mg PO QDAY sulindac 200 mg tablet 200 mg PO BID ondansetron HCl 4 mg tablet 4 mg PO Q6H PRN (Reason: nausea and vomiting) Qty: 8 0RF calcium carbonate-vitamin D3 600 mg-20 mcg [...] mg capsule,delayed release(DR/EC) 40 mg PO BID cholecalciferol (vitamin D3) [Vitamin D3] 125 mcg (5,000 unit) tablet 125 mcg PO DAILY magnesium 200 mg tablet 400 mg PO QHS vitamin B complex [Vitamins B Complex] Capsule 1 cap PO DAILY calcium 500 mg tablet 1,000 mg PO DAILY Referrals / Follow Up: Danielle Paige DO [Primary Care Provider] - Within 1 Week Disposition Disposition (needs filled in before D/C Order can be placed): Home, Self Care 12/19/24 1207<Electronically signed by Berkley Shukla MD>Berkley Shukla MD CC: Dr. Ale Newton MD; Dr. Danielle Paige DO ~ Signed [facility] Work Phone: 1(548) 939-130606-05-2025 Discharge summary [facility] Medical Records Department [address] [place] [address] Instructions for Home/Discharge Instructions 12/19/24 1206 MR#: [id number] Acct: [id number] Name: MARGIE FULTON Rep # :[id number] : 1940 84 From: Berkley Shukla MD PCP: Dr. Danielle Paige DO Status:ADM IN Discharge Instructions Diet Discharge Diet: Low fat / Low cholesterol DC O2, CPAP, BIPAP needs Home O2 Discharge instructions: No Dressing / Incision Discharge Activity: Return to Normal Activity Weight Bearing Status: Weight bearing as tolerated Dressing / Incision Call your doctor if you observe: Fever of 101 or Higher, Shortness of breath, Dizziness, Swelling in the ankles, Chest pain and Uncontrolled pain Follow Up Care Test Results: Test results from this visit will be discussed in further detail at your follow- up appointment, if applicable. Discharge Plan Admission Admit Date/Time: 12/17/24 22:48 Primary Reason for Your Visit: UTI, constipation Attending Provider: Berkley Shukla Primary Care Provider: Danielle Paige Consulting Providers: Ale Newton Instructions Patient Instructions: ED UTI Fem Ch Discharge Orders/Prescriptions Prescriptions: New ciprofloxacin HCl [Cipro] 500 mg tablet 500 mg PO BID Qty: 10 0RF Continued mecobalamin (vitamin B12) 1,000 mcg tablet,chewable 1,000 mcg PO DAILY diltiazem HCl 30 mg tablet 30 mg PO QDAY sulindac 200 mg tablet 200 mg PO BID ondansetron HCl 4 mg tablet 4 mg PO Q6H PRN (Reason: nausea and vomiting) Qty: 8 0RF calcium carbonate-vitamin D3 600 mg-20 mcg [...] mg capsule,delayed release(DR/EC) 40 mg PO BID cholecalciferol (vitamin D3) [Vitamin D3] 125 mcg (5,000 unit) tablet 125 mcg PO DAILY magnesium 200 mg tablet 400 mg PO QHS vitamin B complex [Vitamins B Complex] Capsule 1 cap PO DAILY calcium 500 mg tablet 1,000 mg PO DAILY Referrals / Follow Up: Danielle Paige DO [Primary Care Provider] - Within 1 Week Disposition Disposition (needs filled in before D/C Order can be placed): Home, Self Care 12/19/24 1207Berkley Shukla MD CC: Dr. Ale Newton MD; Dr. Danielle Paige DO ~ Signed [facility]06-05-2025 [facility]06-04-2025 Progress note Author [facility] Note Date/Time December 18, 2024 5:42p m [facility] Medical Records Department [address] [place] [address] Progress Note 12/18/24 1545 MR#: [id number] Acct: [id number] Name: MARGIE FULTON Rep # :[id number] : 1940 84 From: Berkley Shukla MD PCP: Dr. Danielle Paige DO Status:ADM IN Location: [place] [address]- Subjective Subjective Patient seen and examined. She was admitted with complaint of abdominal pain. She had laparoscopic cholecystectomy on 12/02/2024. She said she was subsequently discharged home but has not been able to have bowel movement since then and also started having nausea and vomiting with burning with urination andlower abdominal pain so she came into the ED.she still complains of lower abdominal pain. She denies any nausea and vomiting since she came into the hospital. She had not had any bowel movements above and 2 small ones. She was therefore given prune juice this morning subsequently started having several bowel movements. Review of symptoms otherwise negative. Objective Data Objective Data Vital Signs: Vital Signs Temp Pulse Resp BP Pulse Ox O2 Del Method 98.1 F 76 16 119/72 98 Room Air 12/18/24 15:18 12/18/24 15:18 12/18/24 15:18 12/18/24 15:18 12/18/24 15:18 12/18/24 15:18 Oxygen Delivery Method Room Air Weight: 130 lb 1.164 oz Body Mass Index (BMI) 21.6 Intake & Output: Intake and Output for Last 24 Hours 12/16/24 12/17/24 12/18/24 23:59 23:59 23:59 Intake Total 1000 / 1050 1250.00 / 1250.00 Balance 1000 / 1050 1250.00 / 1250.00 Lab / Micro Data 12/18/24 05:13 12/18/24 05:13 Labs: Laboratory Results - last 24 hr 12/17/24 20:24: WBC 14.9 H, RBC 4.17 L, Hgb 13.1, Hct 39.0, MCV 93.5, MCH 31.4, MCHC 33.6, RDW Std Deviation 44.2 H, RDW Coeff of [place] 12.9, Plt Count 382, MPV 9.1, Immature Gran % (Auto) 0.300, Neut % (Auto) 81.9 H, Lymph % (Auto) 11.0 L, [place] % (Auto) 5.6, Eos % (Auto) 0.7, Baso % (Auto) 0.5, Absolute Neuts (auto) 12.2 H, Absolute Lymphs (auto) 1.64, Nucleated RBC % 0, Sodium 135, Potassium 3.7, Chloride 98, Carbon Dioxide 22.9, Anion Gap 14, BUN 18, Creatinine 0.79, Estim Creat Clear Calc 44.85 L, Est GFR (MDRD) Non-Af 75, BUN/Creatinine Ratio 23.2 H, Glucose 110 H, Calcium 9.7, Total Bilirubin 0.70, AST 38 H, ALT 39 H, Alkaline Phosphatase 199 H, Total Protein 7.0, Albumin 3.9, Globulin 3.2, Albumin/Globulin Ratio 1.2, Lipase 21 12/17/24 20:45: Lactic Acid < 1.0 12/17/24 21:30: Urine Color Yellow, Urine Clarity Cloudy, Urine pH 6.0, Ur Specific [place] 1.015, Urine Protein 30 H, Urine Glucose (UA) Normal, Urine Ketones 50 H, Urine Occult Blood 150 H, Urine Nitrite Positive H, Urine Bilirubin Negative, Urine Urobilinogen 1 H, Ur Leukocyte Esterase 500 H, Urine RBC 0-5 SEEN, Urine WBC >100 SEEN, Ur Squamous Epith Cells 0-5 SEEN, Urine Bacteria 1+, Urine Mucus 0 SEEN 12/18/24 05:13: WBC 11.2 H, RBC 4.07 L, Hgb 12.8, Hct 37.3, MCV 91.6, MCH 31.4, MCHC 34.3, RDW Std Deviation 43.1, RDW Coeff of [place] 12.9, Plt Count 347, MPV 8.7, Immature Gran % (Auto) 0.500, Neut % (Auto) 75.7 H, Lymph % (Auto) 13.9 L, [place] % (Auto) 9.3, Eos % (Auto) 0.2, Baso % (Auto) 0.4, Absolute Neuts (auto) 8.5 H, Absolute Lymphs (auto) 1.56, Nucleated RBC % 0, Sodium 137, Potassium 3.8, Chloride 103, Carbon Dioxide 23.3, Anion Gap 11, BUN 17, Creatinine 0.71, Estim Creat Clear Calc 48.79 L, Est GFR (MDRD) Non-Af 84, BUN/Creatinine Ratio 24.4 H, Glucose 112 H, Calcium 8.8, Total Bilirubin 0.53, AST 31, ALT 31, Alkaline Phosphatase 171 H, Total Protein 6.2, Albumin 3.6, Globulin 2.6, Albumin/Globulin Ratio 1.4 Radiography Diagnostic Testing: Radiology Impression Abdomen/Pelvis CT 12/17/24 20:35 IMPRESSION: Dense colonic stool which may suggest constipation. Colonic diverticulosis. Chronic and ancillary findings as above. Reading Location: [place] [address] Physical Exam Const alert and oriented x3 Constitutional Narrative: looks a bit uncomfortable due to lower abdominal pain General Appearance: cooperative HEENT normocephalic, head/scalp atraumatic, moist oral mucous membranes and oropharynxnormal Eyes PERRL and EOMs intact bilaterally Neck no lymphadenopathy and supple Lymph Lymphatic: no lymphedema noted Resp normal respiratory effort, normal air movement and clear to auscultation bilaterally Cardio regular rate, regular rhythm, S1 normal heart sound, S2 normal heart sound and no murmurs GI normal to inspection, nondistended, normoactive bowel sounds and soft to palpation GI Narrative: mild suprapubic tenderness, no guarding or rebound tenderness. Extremity normal capillary refill, no clubbing, cyanosis or edema and no calf tenderness General Extremity: no tenderness to palpation of joints or extremities Skin General Skin Exam: no breakdown Neuro CN's II-XII intact bilaterally, no focal motor deficits and no sensory deficits noted Motor Exam: general weakness Psych thought process normal and cooperative Appearance: appropriate Assessment & Plan Assessment/Plan (1) UTI (urinary tract infection): (2) Nausea and vomiting: PLAN: Plan #Acute UTI * admitted with a complaint of nausea and vomiting. She had also just been diagnosed with UTI on outpatient basis. * on IV rocephin * PT/OT on board * WBC is down from 14.9-11.2. * #Constipation * this is acute. Recently had cholecystectomy on 12/02/2024 and has struggled with constipation since then * received prune juice today and later in the day started having loose bowel movements and abdominal pain * get abdominal xray to evaluate she did have CT of the abdomen and pelvis on admission showed dense colonic stool and colonic diverticulosis. * #Hypothyroidism: on liothyronine #Hypertension: On Cardizem #GERD: on PPI. #Restless leg syndrome: not on any meds now. Will monitor DVT prophylaxis: lovenox Charges/Coding Visit Charges Inpatient E&M: 81227 Subs Hosp L2 12/18/24 0736 <Electronically signed by Berkley Shukla MD> Berkley Shukla MD Cosigner Signature (if applicable): CC: ~ Signed [facility] Work Phone: 1(698) 530-729106-04-2025 Progress note [facility] Medical Records Department [address] [place] [address] Progress Note 12/18/24 1545 MR#: [id number] Acct: [id number] Name: MARGIE FULTON Rep # :[id number] : 1940 84 From: Berkley Shukla MD PCP: Dr. Danielle Paige, DO Status:ADM IN Location: [facility]- Subjective Subjective Patient seen and examined. She was admitted with complaint of abdominal pain. She had laparoscopic cholecystectomy on 12/02/2024. She said she was subsequently discharged home but has not been able tohave bowel movement since then and also started having nausea and vomiting with burning with urination andlower abdominal pain so she came into the ED.she still complains of lower abdominal pain. Shedenies any nausea and vomiting since she came into the hospital. She had not had any bowel movements above and 2 small ones. She was therefore given prune juice this morning subsequently started having several bowel movements. Review of symptoms otherwise negative. Objective Data Objective Data Vital Signs: Vital Signs Temp Pulse Resp BP Pulse Ox O2 Del Method 98.1 F 76 16 119/72 98 Room Air 12/18/24 15:18 12/18/24 15:18 12/18/24 15:18 12/18/24 15:18 12/18/24 15:18 12/18/24 15:18 Oxygen Delivery Method Room Air Weight: 130 lb 1.164 oz Body Mass Index (BMI) 21.6 Intake & Output: Intake and Output for Last 24 Hours 12/16/24 12/17/24 12/18/24 23:59 23:59 23:59 Intake Total 1000 / 1050 1250.00 / 1250.00 Balance 1000 / 1050 1250.00 / 1250.00 Lab / Micro Data 12/18/24 05:13 12/18/24 05:13 Labs: Laboratory Results - last 24 hr 12/17/24 20:24: WBC 14.9 H, RBC 4.17 L, Hgb 13.1, Hct 39.0, MCV 93.5, MCH 31.4, MCHC 33.6, RDW Std Deviation 44.2 H, RDW Coeff of [place] 12.9, Plt Count 382, MPV 9.1, Immature Gran % (Auto) 0.300, Neut % (Auto) 81.9 H, Lymph % (Auto) 11.0 L, [place] % (Auto) 5.6, Eos % (Auto) 0.7, Baso % (Auto) 0.5, Absolute Neuts (auto) 12.2 H, Absolute Lymphs (auto) 1.64, Nucleated RBC % 0, Sodium 135, Potassium 3.7,Chloride 98, Carbon Dioxide 22.9, Anion Gap 14, BUN 18, Creatinine 0.79, Estim Creat Clear Calc 44.85 L, Est GFR (MDRD) Non-Af 75, BUN/Creatinine Ratio 23.2 H, Glucose 110 H, Calcium 9.7, Total Bilirubin 0.70, AST 38 H, ALT 39 H, Alkaline Phosphatase 199 H, Total Protein 7.0, Albumin 3.9, Globulin 3.2, Albumin/Globulin Ratio 1.2, Lipase 21 12/17/24 20:45: Lactic Acid < 1.0 12/17/24 21:30: Urine Color Yellow, Urine Clarity Cloudy, Urine pH 6.0, Ur Specific [place] 1.015, Urine Protein 30 H, Urine Glucose (UA) Normal, Urine Ketones 50 H, Urine Occult Blood 150 H, Urine Nitrite Positive H, Urine Bilirubin Negative, Urine Urobilinogen 1 H, Ur Leukocyte Esterase 500 H, Urine RBC 0-5 SEEN, Urine WBC >100 SEEN, Ur Squamous Epith Cells 0-5 SEEN, Urine Bacteria 1+, UrineMucus 0 SEEN 12/18/24 05:13: WBC 11.2 H, RBC 4.07 L, Hgb 12.8, Hct 37.3, MCV 91.6, MCH 31.4, MCHC 34.3, RDW Std Deviation 43.1, RDW Coeff of [place] 12.9, Plt Count 347, MPV 8.7, Immature Gran % (Auto) 0.500, Neut % (Auto) 75.7 H, Lymph % (Auto) 13.9 L, [place] % (Auto) 9.3, Eos % (Auto) 0.2, Baso % (Auto) 0.4, Absolute Neuts (auto) 8.5 H, Absolute Lymphs (auto) 1.56, Nucleated RBC % 0, Sodium 137, Potassium 3.8, Chloride 103, Carbon Dioxide 23.3, Anion Gap 11, BUN 17, Creatinine 0.71, Estim Creat Clear Calc 48.79L, Est GFR (MDRD) Non-Af 84, BUN/Creatinine Ratio 24.4 H, Glucose 112 H, Calcium 8.8, Total Bilirubin 0.53, AST 31, ALT 31, Alkaline Phosphatase 171 H, Total Protein 6.2, Albumin 3.6, Globulin 2.6, Al bumin/Globulin Ratio 1.4 Radiography Diagnostic Testing: Radiology Impression Abdomen/Pelvis CT 12/17/24 20:35 IMPRESSION: Dense colonic stool which may suggest constipation. Colonic diverticulosis. Chronic and ancillary findings as above. Reading Location: [place] [address] Physical Exam Const alert and oriented x3 Constitutional Narrative: looks a bit uncomfortable due to lower abdominal pain General Appearance: cooperative HEENT normocephalic, head/scalp atraumatic, moist oral mucous membranes and oropharynxnormal Eyes PERRL and EOMs intact bilaterally Neck no lymphadenopathy and supple Lymph Lymphatic: no lymphedema noted Resp normal respiratory effort, normal air movement and clear to auscultation bilaterally Cardio regular rate, regular rhythm, S1 normal heart sound, S2 normal heart sound and no murmurs GI normal to inspection, nondistended, normoactive bowel sounds and soft to palpation GI Narrative: mild suprapubic tenderness, no guarding or rebound tenderness. Extremity normal capillary refill, no clubbing, cyanosis or edema and no calf tenderness General Extremity: no tenderness to palpation of joints or extremities Skin General Skin Exam: no breakdown Neuro CN's II-XII intact bilaterally, no focal motor deficits and no sensory deficits noted Motor Exam: general weakness Psych thought process normal and cooperative Appearance: appropriate Assessment & Plan Assessment/Plan (1) UTI (urinary tract infection): (2) Nausea and vomiting: PLAN: Plan #Acute UTI * admitted with a complaint of nausea and vomiting. She had also just been diagnosed with UTI on outpatient basis. * on IV rocephin * PT/OT on board * WBC is down from 14.9-11.2. * #Constipation * this is acute. Recently had cholecystectomy on 12/02/2024 and has struggled with constipation since then * received prune juice today and later in the day started having loose bowel movements and abdominal pain * get abdominal xray to evaluate she did have CT of the abdomen and pelvis on admission showed dense colonic stool and colonic diverticulosis. * #Hypothyroidism: on liothyronine #Hypertension: On Cardizem #GERD: on PPI. #Restless leg syndrome: not on any meds now. Will monitor DVT prophylaxis: lovenox Charges/Coding Visit Charges Inpatient E&M: 95473 Subs Hosp L2 12/18/24 1746 Berkley Shukla MD Cosigner Signature (if applicable): CC: ~ Signed [facility]06-04-2025 History and physical note Author Ale Newton [facility] Note Date/Time December 17, 2024 11:59 pm [facility] Medical Records Department [address] [place] [address] H&P Exam - Hospitalist 12/17/24 2241 MR#: [id number] Acct: [id number] Name: MARGIE FULTON Rep # :[id number] : 1940 84 From: Ale Newton MD PCP: Dr. Danielle Paige, DO Status:ADM IN Location: [place] [id number] HPI - General General Date of Admission: 12/17/24 Date of Service: 12/17/24 Chief Complaint: N/V, constipation, recent UTI dx on day of presentation. HPI Narrative The patient is an 84 y/o F w/ PMHx: RLS, HTN, GERD, Asthma, CKD stage II per GFRtrending who presents to the [facility] ED on 12/17/2024 with history of nausea, emesis and recent issues with constipation ongoing for the last 3 days with self administration of Metamucil on day of presentation withoutrelief with concern for possible urinary tract infection with noted recent urinary frequency increased above baseline with evaluation by urology on day of presentation started on antibiotics secondary to concerning urine complicated byrecent cholecystectomy per Dr. Dutta on 12/02/2024 prompting eventual ED evaluation to be cautious. Workup in the ED included T99.1, heart rate 160, BP 119/88, respiratory rate 16, 97% on room air with most recent repeat vitals T98,heart rate 106, BP 146/85, respiratory rate 16, 96% on room air, CBC with WBC 14.9, hemoglobin 13.1, platelet 322 with left shift, BMP with BUN/creatinine 18/0.79, GFR 75, glucose 110, hepatic profile with AST/ALT 38/39, alk phos 199, lactic acid less than 1, lipase 21, urinalysis with specific gravity 1.015, protein 30, ketone 50, occult blood 150, positive nitrate, leukocyte Estrace 500with urine WBCs greater than 100 with 1+ urine bacteria, urine culture pending per ED, CT abdomen and pelvis with dense colonic stool possibly constipation, colonic diverticulosis with chronic changes with no acute intra-abdominal findings. In the ED patient ministered Zofran 4 mg IV x 1, 1 L normal saline, Zofran 1 g IV x 1. Most recent noted urine culture of 09/28/2022 with Proteus with pansensitivity noted. [facility] Medical History Gallbladder polyp Wears glasses Post-menopausal [...] mg PO DAILY 10/18/24 Unk nown History omeprazole 40 mg capsule,delayed 40 mg PO BID 12/02/24 12/02/24 History release ondansetron HCl 4 mg tablet 4 mg PO Q6H PRN nausea and 12/12/24 Unknown Rx vomiting #8 tabs oxycodone-acetaminophen 5 mg-325 1 tab PO Q8 PRN pain 12/17/24 Unknown History mg tablet Allergy/AdvReac Type Severity Reaction Status Date / Time No Known Allergies Allergy Verified 12/17/24 20:12 Family History Mother Rheumatoid arthritis Father Rheumatoid arthritis Other Malignant neoplasm determined by biopsy of testicle Surgical History S/P cholecystectomy History of esophagogastroduodenoscopy (EGD) History of lobectomy of lung H/O vaginal surgery History of surgery on upper extremity Complete tear of sacrospinous ligament Cataract fragments of eye following cataract surgery History of genitourinary surgery S/P cervical spinal fusion Hx of repair of rotator cuff H/O hand surgery History of total right knee replacement (TKR) Social History (Updated 12/17/24 @ 23:[address] Ale Newton MD) household members: none Smoking Status: Never smoker alcohol intake: current alcohol intake frequency: a few times a week Alcohol type: wine substance use type: does not use ROS ROS Narrative Admission Review of Systems: CONSTITUTIONAL: No weight loss, fever, chills, + weakness or fatigue. HEENT: Eyes: No visual loss, blurred vision, double vision or yellow sclerae. Ears, Nose, Throat: No hearing loss, sneezing, congestion, runny nose or sore throat. SKIN: No rash or itching, lesions, wounds except occasional stage ecchymoses, abrasion, recent operative intervention status post cholecystectomy with expected incisions. CARDIOVASCULAR: No chest pain, chest pressure or chest discomfort, palpitations,edema, orthopnea, syncopal events. RESPIRATORY: No shortness of breath, cough or sputum, wheezing, hemoptysis. GASTROINTESTINAL: + Abdominal discomfort, distention, constipation, nausea, emesis. No diarrhea, melena, BRBPR. GENITOURINARY: + Increased urinary frequency. No dysuria, urgency or retention. NEUROLOGICAL: No headache, dizziness, syncope, paralysis, ataxia, numbness or tingling in the extremities, focal weakness, change in bowel or bladder control,seizure. MUSCULOSKELETAL: No muscle, back pain, joint pain or stiffness. HEMATOLOGIC: No anemia. + Easy bleeding/bruising. LYMPHATICS: No enlarged nodes. No history of splenectomy. PSYCHIATRIC: No history of depression or anxiety. ENDOCRINOLOGIC: No reports of sweating, cold or heat intolerance. No polyuria orpolydipsia. ALLERGIES: + History of asthma. Vital Signs Vital Signs Vital Signs: 12/17/24 20:10 12/17/24 20:45 12/17/24 21:16 Temperature 99.1 F 97.9 F Temperature Source Oral Temporal Pulse Rate 160 H 117 H 108 H Respiratory Rate 16 19 H 18 Blood Pressure 119/88 H 135/78 H 143/81 H Blood Pressure Mean 98 97 101 Pulse Ox 97 95 98 Oxygen Delivery Method Room Air 12/17/24 21:16 12/17/24 22:00 Temperature 98 F 98 F Temperature Source Temporal Temporal Pulse Rate 106 H 106 H Respiratory Rate 17 16 Blood Pressure 143/81 H 146/85 H Blood Pressure Mean 101 105 Pulse Ox 97 96 Oxygen Delivery Method Room Air Weight Weight: 129 lb Body Mass Index (BMI) 22.8 Physical Exam Narrative Physical Examination: General: Awake, alert, oriented x 3 and cooperative, seated upright in the ED bed, fatigued, notes still some nausea although abdomen less uncomfortable following recent enema with some success. Skin: Normal color, normal turgor, no icterus, no cyanosis except occasional stage ecchymoses, abrasion, status post recent cholecystectomy with expected incisions well-healing. HEENT: AT/NC, EOMI, PERRLA, moderately dry MM, no carotid bruits or JVD noted. Lungs: CTA bilaterally, moderate effort, mild decrease BL bases, no rales, ronchi or wheezing. Heart: Regular rate and rhythm; no gallop, rub audible. Abdomen: Soft, mild generalized discomfort with palpation with no rebound or guarding, mildly distended and tympanitic, hyperactive BS, no appreciated HSM, see skin. Extremities: No cyanosis, clubbing, or edema. Neurological: Patient awake, alert, oriented as noted, cognitive function intact; pupils equally reactive to light and accommodation, cranial nerves grossnormal, moving all 4 extremities, no focal deficits, strength moderately to severely globally decreased. Psychiatric: Affect appears flat, fatigued, no acute evidence of depressive or anxiety feelings. Results Lab / Micro Data 12/17/24 20:24 12/17/24 20:24 Labs: Laboratory Results - last 24 hr 12/17/24 20:24: WBC 14.9 H, RBC 4.17 L, Hgb 13.1, Hct 39.0, MCV 93.5, MCH 31.4, MCHC 33.6, RDW Std Deviation 44.2 H, RDW Coeff of [place] 12.9, Plt Count 382, MPV 9.1, Immature Gran % (Auto) 0.300, Neut % (Auto) 81.9 H, Lymph % (Auto) 11.0 L, [place] % (Auto) 5.6, Eos % (Auto) 0.7, Baso % (Auto) 0.5, Absolute Neuts (auto) 12.2 H, Absolute Lymphs (auto) 1.64, Nucleated RBC % 0, Sodium 135, Potassium 3.7, Chloride 98, Carbon Dioxide 22.9, Anion Gap 14, BUN 18, Creatinine 0.79, Estim Creat Clear Calc 44.85 L, Est GFR (MDRD) Non-Af 75, BUN/Creatinine Ratio 23.2 H, Glucose 110 H, Calcium 9.7, Total Bilirubin 0.70, AST 38 H, ALT 39 H, Alkaline Phosphatase 199 H, Total Protein 7.0, Albumin 3.9, Globulin 3.2, Albumin/Globulin Ratio 1.2, Lipase 21 12/17/24 20:45: Lactic Acid < 1.0 12/17/24 21:30: Urine Color Yellow, Urine Clarity Cloudy, Urine pH 6.0, Ur Specific [place] 1.015, Urine Protein 30 H, Urine Glucose (UA) Normal, Urine Ketones 50 H, Urine Occult Blood 150 H, Urine Nitrite Positive H, Urine Bilirubin Negative, Urine Urobilinogen 1 H, Ur Leukocyte Esterase 500 H, Urine RBC 0-5 SEEN, Urine WBC >100 SEEN, Ur Squamous Epith Cells 0-5 SEEN, Urine Bacteria 1+, Urine Mucus 0 SEEN Imaging Radiology Impression Abdomen/Pelvis CT 12/17/24 20:35 IMPRESSION: Dense colonic stool which may suggest constipation. Colonic diverticulosis. Chronic and ancillary findings as above. Reading Location: [place] [address] Assessment & Plan Assessment/Plan (1) UTI (urinary tract infection): PLAN: Plan The patient is an 84 y/o F w/ PMHx: RLS, HTN, GERD, Asthma, CKD stage II per GFRtrending who presents to the [facility] ED on 12/17/2024 with history of nausea, emesis and recent issues with constipation ongoing for the last 3 days with self administration of Metamucil on day of presentation withoutrelief with concern for possible urinary tract infection with evaluation by urology on day of presentation started on antibiotics secondary to concerning urine complicated by recent cholecystectomy per Dr. Dutta on 12/02/2024 prompting eventual ED evaluation to be cautious. #1. Acute Complicated Urinary Tract Infection with intractable nausea/emesis complicated by #2, unable to take oral outpatient abx : Will admit to [facility] upon ED evaluation remarkable, pending UCx, continue IVFs, monitor I/Os, continue IV Rocephin w/ transition as able pending sensitivities and speciation. PT/OT/case management consulted for discharge planning. #2. Acute constipation complicated by recent cholecystectomy: Some success withenema in the ED with notable evidence of constipation upon evaluation of resultsof intervention, will maintain on clear liquids, will have as needed antiemeticsand if patient is able will then transition to a scheduled oral bowel regimen with hold for loose stools. Will maintain in interim on IV PPI. Once patient is improving certainly may advance diet. #2. Chronic asthma: Per current list not on chronic regimen, will have PRN albuterol, HOB, IS parameters. #3. Chronic Kidney Disease Stage II per GFR trending: Admission BUN/Cr 18/0.79,GFR 75, baseline renal function primarily 0.8-1.0, repeat BMP in AM. #4. Hypothyroidism: Will continue patient home liothyronine regimen. #5. Hypertension: Continue home regimen including diltiazem with hold parameters as needed, PRN hydralazine. #6. GERD: Will temporarily maintain as noted on IV PPI. Transition back to oral regimen once #2 resolved. #7. Restless leg syndrome: Noted history, not on regimen, if necessary may consider adding Requip. #8. DVT prophylaxis: Lovenox. #9. CODE status: Patient GARRY is her daughter and living will is currently in place. Discussed CODE status at length including difference between FULL code, DNR-CCA and DNR-CC status. Following discussions about the differences in these status, requested DNR-CCA, no intubation. Examples discussed and status confirmed. Advanced Care Planning Face to Face Time: 16 minutes. Charges/Coding Visit Charges Inpatient E&M: 54552 Init Hosp L3 Procedures Hospitalists Procedures: 06031 Advncd Care Plan 30 Min 12/17/24 1557 <Electronically signed by Ale Newton MD> Cosigner Signature (if applicable): CC: Dr. Ale Newton MD; Dr. Danielle Paige DO~ Signed [facility] Work Phone: [phone]) 362-308306-04-2025 Discharge summary Author Albert Juanis [facility] Note Date/Time December 17, 2024 11:08 pm [facility] Medical Records Department [address] [place] [address] Emergency Department Summary 12/17/24 MR#: [id number] Acct: [id number] Name: MARGIE FULTON Rep # :[id number] : 1940 84 From: Albert grant DO PCP: Dr. Danielle Paige DO Status:REG ER Location: ED HPI History of Present Illness Chief Complaint: Nausea/Vomiting Narrative Narrative: Chief complaint and HPI: Nausea, vomiting, constipation. History taken by patient as well as medical record. 84-year-old female with past medical historyof osteoporosis, HLD presents for evaluation of nausea, vomiting, constipation. Onset of symptoms 3 days. Patient states she usually does not suffer from constipation. Took Metamucil today with no relief. Patient states she was concerned she had a UTI due to her symptoms in which she followed up with urology, Dr. Hendricks today. States that she was started on antibiotics after positive urine. On chart review, patient had a recent laparoscopic cholecystectomy with Dr. Cano on 12/02. Patient states that she has been doing well from the surgery. She denies any fever, chills, shortness of breath, URI symptoms, chest pain. States she has diffuse abdominal pain. Associated symptom is decreased p.o. intake. Review of systems: See HPI Medications: As listed on the chart Allergies: As listed on the chart PFSH: Per chart Vital signs: As listed on the chart. Reviewed. Physical exam: Gen: A&O x3, NAD Head: Normocephalic, atraumatic Eyes: No sclera icterus, conjunctiva clear ENT: Dry mucous membranes Neck: Trachea midline, No JVD CV: Tachycardic, regular rhythm, no murmurs, no peripheral edema Resp: Lungs CTA BL, no w/r/c GI: Abd soft, non-distended, mildly tender to palpation diffusely, no r/r/g : No CVA tenderness Musc: Full ROM, no deformity Skin: Warm, dry Neuro: Alert, oriented, grossly intact, sensation intact Psych: Cooperative, appropriate mood and affect [facility] Medical History Gallbladder polyp Wears glasses Post-menopausal [...] mg PO DAILY 10/18/24 Unk nown History omeprazole 40 mg capsule,delayed 40 mg PO BID 12/02/24 12/02/24 History release ondansetron HCl 4 mg tablet 4 mg PO Q6H PRN nausea and 12/12/24 Unknown Rx vomiting #8 tabs Allergy/AdvReac Type Severity Reaction Status Date / Time No Known Allergies Allergy Verified 12/17/24 20:12 Family History Mother Rheumatoid arthritis Father Rheumatoid arthritis Other Malignant neoplasm determined by biopsy of testicle Surgical History S/P cholecystectomy History of esophagogastroduodenoscopy (EGD) History of lobectomy [...] wine substance use type: does not use EXAM Physical Exam Const Vital Signs: 12/17/24 20:10 12/17/24 20:45 12/17/24 21:16 Temperature 99.1 F 97.9 F Temperature Source Oral Temporal Pulse Rate 160 H 117 H 108 H Respiratory Rate 16 19 H 18 Blood Pressure 119/88 H 135/78 H 143/81 H Blood Pressure Mean 98 97 101 Pulse Ox 97 95 98 Oxygen Delivery Method Room Air 12/17/24 21:16 12/17/24 22:00 Temperature 98 F 98 F Temperature Source Temporal Temporal Pulse Rate 106 H 106 H Respiratory Rate 17 16 Blood Pressure 143/81 H 146/85 H Blood Pressure Mean 101 105 Pulse Ox 97 96 Oxygen Delivery Method Room Air MDM MDM MDM Narrative Medical decision making narrative: 84-year-old female with past medical history of osteoporosis, HLD presents for evaluation of nausea, vomiting, constipation. Onset 3 days. Associated symptomis decreased p.o. intake. Patient had recent laparoscopic cholecystectomy on 12/02. Healed well from surgery. Denies taking narcotics. Differential diagnosis includes but is not limited to viral illness, WALTER, electrolyte abnormality, UTI, obstruction, colitis, intra-abdominal abscess. NS bolus, Zofran ordered for symptoms. Abdominal pain workup ordered including CT abdomenand pelvis. EKG reviewed see below. CBC with leukocytosis of 14.9. No anemia. CMP negative for significant electrolyte abnormality or WALTER. Patient has baseline transaminitis and elevated alkaline phosphatase. Recently just had hergallbladder removed. Lactic acid unremarkable. Lipase unremarkable. UA positive for UTI. Urine culture sent. On chart review, patient has a previous urine culture with Proteus that was pansensitive. CT abdomen pelvis shows constipation with colonic diverticulosis. Patient will warrant admission given that she cannot tolerate p.o. intake. I do think she would benefit from IV antibiotics and hydration. Patient was updated of all the results and confirmedunderstand the plan. She was offered an enema which she accepted therefore thiswas ordered. Patient was discussed with the hospitalist service who accepted admission. EKG: Interpreted by me/EM physician: EKG shows sinus tachycardia with a heart rate of123. Nonspecific ST changes which I think are secondary to rate. No ST elevation Impression: 1. UTI 2. Constipation 3. Inability to tolerate p.o. intake with nausea and vomiting Lab Data Labs: Laboratory Results - last 24 hr 12/17/24 12/17/24 12/17/24 20:24 20:45 21:30 WBC 14.9 H RBC 4.17 L Hgb 13.1 Hct 39.0 MCV 93.5 MCH 31.4 MCHC 33.6 RDW Std Deviation 44.2 H RDW Coeff of [place] 12.9 Plt Count 382 MPV 9.1 Immature Gran % (Auto) 0.300 Neut % (Auto) 81.9 H Lymph % (Auto) 11.0 L [place] % (Auto) 5.6 Eos % (Auto) 0.7 Baso % (Auto) 0.5 Absolute Neuts (auto) 12.2 H Absolute Lymphs (auto) 1.64 Nucleated RBC % 0 Sodium 135 Potassium 3.7 Chloride 98 Carbon Dioxide 22.9 Anion Gap 14 BUN 18 Creatinine 0.79 Estim Creat Clear Calc 44.85 L Est GFR (MDRD) Non-Af 75 BUN/Creatinine Ratio 23.2 H Glucose 110 H Lactic Acid < 1.0 Calcium 9.7 Total Bilirubin 0.70 AST 38 H ALT 39 H Alkaline Phosphatase 199 H Total Protein 7.0 Albumin 3.9 Globulin 3.2 Albumin/Globulin Ratio 1.2 Lipase 21 Urine Color Yellow Urine Clarity Cloudy Urine pH 6.0 Ur Specific [place] 1.015 Urine Protein 30 H Urine Glucose (UA) Normal Urine Ketones 50 H Urine Occult Blood 150 H Urine Nitrite Positive H Urine Bilirubin Negative Urine Urobilinogen 1 H Ur Leukocyte Esterase 500 H Urine RBC 0-5 SEEN Urine WBC >100 SEEN Ur Squamous Epith Cells 0-5 SEEN Urine Bacteria 1+ Urine Mucus 0 SEEN Radiography Diagnostic Testing: Clinical Impression(s) from Imaging Studies Abdomen/Pelvis CT 12/17/24 20:35 IMPRESSION: Dense colonic stool which may suggest constipation. Colonic diverticulosis. Chronic and ancillary findings as above. Reading Location: [place] [address] Discharge Plan Triage Chief Complaint: Nausea/Vomiting ED Provider: Albert Julian Dx/Rx/DC Orders Prescriptions: No Action mecobalamin (vitamin B12) 1,000 mcg tablet,chewable 1,000 mcg PO DAILY diltiazem HCl 30 mg tablet 30 mg PO QDAY sulindac 200 mg tablet 200 mg PO BID ondansetron HCl 4 mg tablet 4 mg PO Q6H PRN (Reason: nausea and vomiting) Qty: 8 0RF calcium carbonate-vitamin D3 600 mg-20 mcg [...] mg capsule,delayed release(DR/EC) 40 mg PO BID Primary Care Provider: Danielle Paige Referrals: Danielle Paige DO [Primary Care Provider] - Print Language: Taiwanese What to do if you have Problems For any increased pain, shortness of breath, bleeding, nausea or vomiting, chestpain, or any unexpected problems, contact your Primary Care Provider. Call [facility] ([phone]) or report to the closest Emergency Room. Call 911 if necessary. 12/17/24 5991 <Electronically signed by Albert Julian DO> Cosigner Signature (if applicable): CC: Dr. Danielle Paige, DO ~ Signed [facility] Work Phone: [phone] 171-233206-04-2025 History and physical note Author Ale Newton [facility] Note Date/Time December 17, 2024 11:59 pm [facility] Medical Records Department [address] [place] [address] H&P Exam - Hospitalist 12/17/24 2241 MR#: [id number] Acct: [id number] Name: MARGIE FULTON Rep # :[id number] : 1940 84 From: Ale Newton MD PCP: Dr. Danielle Paige, Status:ADM IN Location: [place] [id number] HPI - General General Date of Admission: 12/17/24 Date of Service: 12/17/24 Chief Complaint: N/V, constipation, recent UTI dx on day of presentation. HPI Narrative The patient is an 84 y/o F w/ PMHx: RLS, HTN, GERD, Asthma, CKD stage II per GFRtrending who presents to the [facility] ED on 12/17/2024 with history of nausea, emesis and recent issues with constipation ongoing for the last 3 days with self administration of Metamucil on day of presentation withoutrelief with concern for possible urinary tract infection with noted recent urinary frequency increased above baseline with evaluation by urology on day of presentation started on antibiotics secondary to concerning urine complicated byrecent cholecystectomy per Dr. Dutta on 12/02/2024 prompting eventual ED evaluation to be cautious. Workup in the ED included T99.1, heart rate 160, BP 119/88, respiratory rate 16, 97% on room air with most recent repeat vitals T98,heart rate 106, BP 146/85, respiratory rate 16, 96% on room air, CBC with WBC 14.9, hemoglobin 13.1, platelet 322 with left shift, BMP with BUN/creatinine 18/0.79, GFR 75, glucose 110, hepatic profile with AST/ALT 38/39, alk phos 199, lactic acid less than 1, lipase 21, urinalysis with specific gravity 1.015, protein 30, ketone 50, occult blood 150, positive nitrate, leukocyte Estrace 500with urine WBCs greater than 100 with 1+ urine bacteria, urine culture pending per ED, CT abdomen and pelvis with dense colonic stool possibly constipation, colonic diverticulosis with chronic changes with no acute intra-abdominal findings. In the ED patient ministered Zofran 4 mg IV x 1, 1 L normal saline, Zofran 1 g IV x 1. Most recent noted urine culture of 09/28/2022 with Proteus with pansensitivity noted. [facility] Medical History Gallbladder polyp Wears glasses Post-menopausal [...] mg PO DAILY 10/18/24 Unk nown History omeprazole 40 mg capsule,delayed 40 mg PO BID 12/02/24 12/02/24 History release ondansetron HCl 4 mg tablet 4 mg PO Q6H PRN nausea and 12/12/24 Unknown Rx vomiting #8 tabs oxycodone-acetaminophen 5 mg-325 1 tab PO Q8 PRN pain 12/17/24 Unknown History mg tablet Allergy/AdvReac Type Severity Reaction Status Date / Time No Known Allergies Allergy Verified 12/17/24 20:12 Family History Mother Rheumatoid arthritis Father Rheumatoid arthritis Other Malignant neoplasm determined by biopsy of testicle Surgical History S/P cholecystectomy History of esophagogastroduodenoscopy (EGD) History of lobectomy of lung H/O vaginal surgery History of surgery on upper extremity Complete tear of sacrospinous ligament Cataract fragments of eye following cataract surgery History of genitourinary surgery S/P cervical spinal fusion Hx of repair of rotator cuff H/O hand surgery History of total right knee replacement (TKR) Social History (Updated 12/17/24 @ 23:[address] Ale Newton MD) household members: none Smoking Status: Never smoker alcohol intake: current alcohol intake frequency: a few times a week Alcohol type: wine substance use type: does not use ROS ROS Narrative Admission Review of Systems: CONSTITUTIONAL: No weight loss, fever, chills, + weakness or fatigue. HEENT: Eyes: No visual loss, blurred vision, double vision or yellow sclerae. Ears, Nose, Throat: No hearing loss, sneezing, congestion, runny nose or sore throat. SKIN: No rash or itching, lesions, wounds except occasional stage ecchymoses, abrasion, recent operative intervention status post cholecystectomy with expected incisions. CARDIOVASCULAR: No chest pain, chest pressure or chest discomfort, palpitations,edema, orthopnea, syncopal events. RESPIRATORY: No shortness of breath, cough or sputum, wheezing, hemoptysis. GASTROINTESTINAL: + Abdominal discomfort, distention, constipation, nausea, emesis. No diarrhea, melena, BRBPR. GENITOURINARY: + Increased urinary frequency. No dysuria, urgency or retention. NEUROLOGICAL: No headache, dizziness, syncope, paralysis, ataxia, numbness or tingling in the extremities, focal weakness, change in bowel or bladder control,seizure. MUSCULOSKELETAL: No muscle, back pain, joint pain or stiffness. HEMATOLOGIC: No anemia. + Easy bleeding/bruising. LYMPHATICS: No enlarged nodes. No history of splenectomy. PSYCHIATRIC: No history of depression or anxiety. ENDOCRINOLOGIC: No reports of sweating, cold or heat intolerance. No polyuria orpolydipsia. ALLERGIES: + History of asthma. Vital Signs Vital Signs Vital Signs: 12/17/24 20:10 12/17/24 20:45 12/17/24 21:16 Temperature 99.1 F 97.9 F Temperature Source Oral Temporal Pulse Rate 160 H 117 H 108 H Respiratory Rate 16 19 H 18 Blood Pressure 119/88 H 135/78 H 143/81 H Blood Pressure Mean 98 97 101 Pulse Ox 97 95 98 Oxygen Delivery Method Room Air 12/17/24 21:16 12/17/24 22:00 Temperature 98 F 98 F Temperature Source Temporal Temporal Pulse Rate 106 H 106 H Respiratory Rate 17 16 Blood Pressure 143/81 H 146/85 H Blood Pressure Mean 101 105 Pulse Ox 97 96 Oxygen Delivery Method Room Air Weight Weight: 129 lb Body Mass Index (BMI) 22.8 Physical Exam Narrative Physical Examination: General: Awake, alert, oriented x 3 and cooperative, seated upright in the ED bed, fatigued, notes still some nausea although abdomen less uncomfortable following recent enema with some success. Skin: Normal color, normal turgor, no icterus, no cyanosis except occasional stage ecchymoses, abrasion, status post recent cholecystectomy with expected incisions well-healing. HEENT: AT/NC, EOMI, PERRLA, moderately dry MM, no carotid bruits or JVD noted. Lungs: CTA bilaterally, moderate effort, mild decrease BL bases, no rales, ronchi or wheezing. Heart: Regular rate and rhythm; no gallop, rub audible. Abdomen: Soft, mild generalized discomfort with palpation with no rebound or guarding, mildly distended and tympanitic, hyperactive BS, no appreciated HSM, see skin. Extremities: No cyanosis, clubbing, or edema. Neurological: Patient awake, alert, oriented as noted, cognitive function intact; pupils equally reactive to light and accommodation, cranial nerves grossnormal, moving all 4 extremities, no focal deficits, strength moderately to severely globally decreased. Psychiatric: Affect appears flat, fatigued, no acute evidence of depressive or anxiety feelings. Results Lab / Micro Data 12/17/24 20:24 12/17/24 20:24 Labs: Laboratory Results - last 24 hr 12/17/24 20:24: WBC 14.9 H, RBC 4.17 L, Hgb 13.1, Hct 39.0, MCV 93.5, MCH 31.4, MCHC 33.6, RDW Std Deviation 44.2 H, RDW Coeff of [place] 12.9, Plt Count 382, MPV 9.1, Immature Gran % (Auto) 0.300, Neut % (Auto) 81.9 H, Lymph % (Auto) 11.0 L, [place] % (Auto) 5.6, Eos % (Auto) 0.7, Baso % (Auto) 0.5, Absolute Neuts (auto) 12.2 H, Absolute Lymphs (auto) 1.64, Nucleated RBC % 0, Sodium 135, Potassium 3.7, Chloride 98, Carbon Dioxide 22.9, Anion Gap 14, BUN 18, Creatinine 0.79, Estim Creat Clear Calc 44.85 L, Est GFR (MDRD) Non-Af 75, BUN/Creatinine Ratio 23.2 H, Glucose 110 H, Calcium 9.7, Total Bilirubin 0.70, AST 38 H, ALT 39 H, Alkaline Phosphatase 199 H, Total Protein 7.0, Albumin 3.9, Globulin 3.2, Albumin/Globulin Ratio 1.2, Lipase 21 12/17/24 20:45: Lactic Acid < 1.0 12/17/24 21:30: Urine Color Yellow, Urine Clarity Cloudy, Urine pH 6.0, Ur Specific [place] 1.015, Urine Protein 30 H, Urine Glucose (UA) Normal, Urine Ketones 50 H, Urine Occult Blood 150 H, Urine Nitrite Positive H, Urine Bilirubin Negative, Urine Urobilinogen 1 H, Ur Leukocyte Esterase 500 H, Urine RBC 0-5 SEEN, Urine WBC >100 SEEN, Ur Squamous Epith Cells 0-5 SEEN, Urine Bacteria 1+, Urine Mucus 0 SEEN Imaging Radiology Impression Abdomen/Pelvis CT 12/17/24 20:35 IMPRESSION: Dense colonic stool which may suggest constipation. Colonic diverticulosis. Chronic and ancillary findings as above. Reading Location: [place] [address] Assessment & Plan Assessment/Plan (1) UTI (urinary tract infection): PLAN: Plan The patient is an 84 y/o F w/ PMHx: RLS, HTN, GERD, Asthma, CKD stage II per GFRtrending who presents to the [facility] ED on 12/17/2024 with history of nausea, emesis and recent issues with constipation ongoing for the last 3 days with self administration of Metamucil on day of presentation withoutrelief with concern for possible urinary tract infection with evaluation by urology on day of presentation started on antibiotics secondary to concerning urine complicated by recent cholecystectomy per Dr. Dutta on 12/02/2024 prompting eventual ED evaluation to be cautious. #1. Acute Complicated Urinary Tract Infection with intractable nausea/emesis complicated by #2, unable to take oral outpatient abx : Will admit to [facility] upon ED evaluation remarkable, pending UCx, continue IVFs, monitor I/Os, continue IV Rocephin w/ transition as able pending sensitivities and speciation. PT/OT/case management consulted for discharge planning. #2. Acute constipation complicated by recent cholecystectomy: Some success withenema in the ED with notable evidence of constipation upon evaluation of resultsof intervention, will maintain on clear liquids, will have as needed antiemeticsand if patient is able will then transition to a scheduled oral bowel regimen with hold for loose stools. Will maintain in interim on IV PPI. Once patient is improving certainly may advance diet. #2. Chronic asthma: Per current list not on chronic regimen, will have PRN albuterol, HOB, IS parameters. #3. Chronic Kidney Disease Stage II per GFR trending: Admission BUN/Cr 18/0.79,GFR 75, baseline renal function primarily 0.8-1.0, repeat BMP in AM. #4. Hypothyroidism: Will continue patient home liothyronine regimen. #5. Hypertension: Continue home regimen including diltiazem with hold parameters as needed, PRN hydralazine. #6. GERD: Will temporarily maintain as noted on IV PPI. Transition back to oral regimen once #2 resolved. #7. Restless leg syndrome: Noted history, not on regimen, if necessary may consider adding Requip. #8. DVT prophylaxis: Lovenox. #9. CODE status: Patient GARRY is her daughter and living will is currently in place. Discussed CODE status at length including difference between FULL code, DNR-CCA and DNR-CC status. Following discussions about the differences in these status, requested DNR-CCA, no intubation. Examples discussed and status confirmed. Advanced Care Planning Face to Face Time: 16 minutes. Charges/Coding Visit Charges Inpatient E&M: 75143 Init Hosp L3 Procedures Hospitalists Procedures: 29779 Advncd Care Plan 30 Min 12/17/24 6893 <Electronically signed by Ale Newton MD> Cosigner Signature (if applicable): CC: Dr. Ale Newton MD; Dr. Danielle Paige DO~ Signed [facility] Work Phone: [phone] History and physical note [facility] Medical Records Department [address] [place] [id number] H&P Exam - Hospitalist 12/17/24 2241 MR#: [id number] Acct: [id number] Name: MARGIE FULTON Rep # :[id number] : 1940 84 From: Ale Newton MD PCP: Dr. Danielle Paige DO Status:ADM IN Location: [place] [address] HPI - General General Date of Admission: 12/17/24 Date of Service: 12/17/24 Chief Complaint: N/V, constipation, recent UTI dx on day of presentation. HPI Narrative The patient is an 84 y/o F w/ PMHx: RLS, HTN, GERD, Asthma, CKD stage II per GFRtrending who presents to the [facility] ED on 12/17/2024 with history of nausea, emesis and recent issueswith constipation ongoing for the last 3 days with self administration of Metamucil on day of presentation withoutrelief with concern for possible urinary tract infection with noted recent urinary frequency increased above baseline with evaluation by urology on day of presentation started on antibiotics secondary to concerning urine complicated byrecent cholecystectomy per Dr. Dutta on 12/02/2024 prompting eventual ED evaluation to be cautious. Workup in the ED included T99.1, heart rate 160, BP 119/88, respiratory rate 16, 97% on room air with most recent repeat vitals T98,heart rate 106, BP 146/85, respiratory rate 16, 96% on room air, CBC with WBC 14.9, hemoglobin 13.1, platelet 322 with left shift, BMP with BUN/creatinine 18/0.79, GFR 75, glucose 110, hepatic profile with AST/ALT 38/39, alk phos 199, lactic acid less than 1, lipase 21, urinalysis with specific gravity 1.015, protein 30, ketone 50, occult blood 150, positive nitrate, leukocyte Estrace 500with urine WBCs greater than 100 with 1+ urine bacteria, urine culture pending per ED, CT abdomen and pelvis with dense colonic stool possibly constipation, colonic diverticulosis with chronic changes with no acute intra-abdominal findings. In the ED patient ministered Zofran 4 mg IV x 1, 1 L normal saline, Zofran 1 g IV x 1. Most recent noted urine culture of 09/28/2022 with Proteus with pansensitivity noted. [facility] Medical History Gallbladder polyp Wears glasses Post-menopausal [...] mg PO DAILY 10/18/24 Unk nown History omeprazole 40 mg capsule,delayed 40 mg PO BID 12/02/24 12/02/24 History release ondansetron HCl 4 mg tablet 4 mg PO Q6H PRN nausea and 12/12/24 Unknown Rx vomiting #8 tabs oxycodone-acetaminophen 5 mg-325 1 tab PO Q8 PRN pain 12/17/24 Unknown History mg tablet Allergy/AdvReac Type Severity Reaction Status Date / Time No Known Allergies Allergy Verified 12/17/24 20:12 Family History Mother Rheumatoid arthritis Father Rheumatoid arthritis Other Malignant neoplasm determined by biopsy of testicle Surgical History S/P cholecystectomy History of esophagogastroduodenoscopy (EGD) History of lobectomy of lung H/O vaginal surgery History of surgery on upper extremity Complete tear of sacrospinous ligament Cataract fragments of eye following cataract surgery History of genitourinary surgery S/P cervical spinal fusion Hx of repair of rotator cuff H/O hand surgery History of total right knee replacement (TKR) Social History (Updated 12/17/24 @ 23:[address] Ale Newton MD) household members: none Smoking Status: Never smoker alcohol intake: current alcohol intake frequency: a few times a week Alcohol type: wine substance use type: does not use ROS ROS Narrative Admission Review of Systems: CONSTITUTIONAL: No weight loss, fever, chills, + weakness or fatigue. HEENT: Eyes: No visual loss, blurred vision, double vision or yellow sclerae. Ears, Nose, Throat: No hearing loss, sneezing, congestion, runny nose or sore throat. SKIN: No rash or itching, lesions, wounds except occasional stage ecchymoses, abrasion, recent operative intervention status post cholecystectomy with expected incisions. CARDIOVASCULAR: No chest pain, chest pressure or chest discomfort, palpitations,edema, orthopnea, syncopal events. RESPIRATORY: No shortness of breath, cough or sputum, wheezing, hemoptysis. GASTROINTESTINAL: + Abdominal discomfort, distention, constipation, nausea, emesis. No diarrhea, melena, BRBPR. GENITOURINARY: + Increased urinary frequency. No dysuria, urgency or retention. NEUROLOGICAL: No headache, dizziness, syncope, paralysis, ataxia, numbness or tingling in the extremities, focal weakness, change in bowel or bladder control,seizure. MUSCULOSKELETAL: No muscle, back pain, joint pain or stiffness. HEMATOLOGIC: No anemia. + Easy bleeding/bruising. LYMPHATICS: No enlarged nodes. No history of splenectomy. PSYCHIATRIC: No history of depression or anxiety. ENDOCRINOLOGIC: No reports of sweating, cold or heat intolerance. No polyuria orpolydipsia. ALLERGIES: + History of asthma. Vital Signs Vital Signs Vital Signs: 12/17/24 20:10 12/17/24 20:45 12/17/24 21:16 Temperature 99.1 F 97.9 F Temperature Source Oral Temporal Pulse Rate 160 H 117 H 108 H Respiratory Rate 16 19 H 18 Blood Pressure 119/88 H 135/78 H 143/81 H Blood Pressure Mean 98 97 101 Pulse Ox 97 95 98 Oxygen Delivery Method Room Air 12/17/24 21:16 12/17/24 22:00 Temperature 98 F 98 F Temperature Source Temporal Temporal Pulse Rate 106 H 106 H Respiratory Rate 17 16 Blood Pressure 143/81 H 146/85 H Blood Pressure Mean 101 105 Pulse Ox 97 96 Oxygen Delivery Method Room Air Weight Weight: 129 lb Body Mass Index (BMI) 22.8 Physical Exam Narrative Physical Examination: General: Awake, alert, oriented x 3 and cooperative, seated upright in the ED bed, fatigued, notes still some nausea although abdomen less uncomfortable following recent enema with some success. Skin: Normal color, normal turgor, no icterus, no cyanosis except occasional stage ecchymoses, abrasion, status post recent cholecystectomy with expected incisions well-healing. HEENT: AT/NC, EOMI, PERRLA, moderately dry MM, no carotid bruits or JVD noted. Lungs: CTA bilaterally, moderate effort, mild decrease BL bases, no rales, ronchi or wheezing. Heart: Regular rate and rhythm; no gallop, rub audible. Abdomen: Soft, mild generalized discomfort with palpation with no rebound or guarding, mildly distended and tympanitic, hyperactive BS, no appreciated HSM, see skin. Extremities: No cyanosis, clubbing, or edema. Neurological: Patient awake, alert, oriented as noted, cognitive function intact; pupils equally reactive to light and accommodation, cranial nerves grossnormal, moving all 4 extremities, no focal deficits, strength moderately to severely globally decreased. Psychiatric: Affect appears flat, fatigued, no acute evidence of depressive or anxiety feelings. Results Lab / Micro Data 12/17/24 20:24 12/17/24 20:24 Labs: Laboratory Results - last 24 hr 12/17/24 20:24: WBC 14.9 H, RBC 4.17 L, Hgb 13.1, Hct 39.0, MCV 93.5, MCH 31.4, MCHC 33.6, RDW Std Deviation 44.2 H, RDW Coeff of Jessee 12.9, Plt Count 382, MPV 9.1, Immature Gran % (Auto) 0.300, Neut % (Auto) 81.9 H, Lymph % (Auto) 11.0 L, [place] % (Auto) 5.6, Eos % (Auto) 0.7, Baso % (Auto) 0.5, Absolute Neuts (auto) 12.2 H, Absolute Lymphs (auto) 1.64, Nucleated RBC % 0, Sodium 135, Potassium 3.7,Chloride 98, Carbon Dioxide 22.9, Anion Gap 14, BUN 18, Creatinine 0.79, Estim Creat Clear Calc 44.85 L, Est GFR (MDRD) Non-Af 75, BUN/Creatinine Ratio 23.2 H, Glucose 110 H, Calcium 9.7, Total Bilirubin 0.70, AST 38 H, ALT 39 H, Alkaline Phosphatase 199 H, Total Protein 7.0, Albumin 3.9, Globulin 3.2, Albumin/Globulin Ratio 1.2, Lipase 21 12/17/24 20:45: Lactic Acid < 1.0 12/17/24 21:30: Urine Color Yellow, Urine Clarity Cloudy, Urine pH 6.0, Ur Specific [place] 1.015, Urine Protein 30 H, Urine Glucose (UA) Normal, Urine Ketones 50 H, Urine Occult Blood 150 H, Urine Nitrite Positive H, Urine Bilirubin Negative, Urine Urobilinogen 1 H, Ur Leukocyte Esterase 500 H, Urine RBC 0-5 SEEN, Urine WBC >100 SEEN, Ur Squamous Epith Cells 0-5 SEEN, Urine Bacteria 1+, UrineMucus 0 SEEN Imaging Radiology Impression Abdomen/Pelvis CT 12/17/24 20:35 IMPRESSION: Dense colonic stool which may suggest constipation. Colonic diverticulosis. Chronic and ancillary findings as above. Reading Location: [id number] Assessment & Plan Assessment/Plan (1) UTI (urinary tract infection): PLAN: Plan The patient is an 84 y/o F w/ PMHx: RLS, HTN, GERD, Asthma, CKD stage II per GFRtrending who presents to the [facility] ED on 12/17/2024 with history of nausea, emesis and recent issueswith constipation ongoing for the last 3 days with self administration of Metamucil on day of presentation withoutrelief with concern for possible urinary tract infection with evaluation by urology on day of presentation started on antibiotics secondary to concerning urine complicated by recent cholecystectomy per Dr. Dutta on 12/02/2024 prompting eventual ED evaluation to be cautious. #1. Acute Complicated Urinary Tract Infection with intractable nausea/emesis complicated by #2, unable to take oral outpatient abx : Will admit to [facility] upon ED evaluation remarkable, pending UCx, continue IVFs, monitor I/Os, continue IV Rocephin w/ transition as able pending sensitivities and speciation. PT/OT/case management consulted for discharge planning. #2. Acute constipation complicated by recent cholecystectomy: Some success withenema in the ED withnotable evidence of constipation upon evaluation of resultsof intervention, will maintain on clear liquids, will have as needed antiemeticsand if patient is able will then transition to a scheduled oral bowel regimen with hold for loose stools. Will maintain in interim on IV PPI. Once patient is improving certainly may advance diet. #2. Chronic asthma: Per current list not on chronic regimen, will have PRN albuterol, HOB, IS parameters. #3. Chronic Kidney Disease Stage II per GFR trending: Admission BUN/Cr 18/0.79,GFR 75, baseline renal function primarily 0.8-1.0, repeat BMP in AM. #4. Hypothyroidism: Will continue patient home liothyronine regimen. #5. Hypertension: Continue home regimen including diltiazem with hold parameters as needed, PRN hydralazine. #6. GERD: Will temporarily maintain as noted on IV PPI. Transition back to oral regimen once #2 resolved. #7. Restless leg syndrome: Noted history, not on regimen, if necessary may consider adding Requip. #8. DVT prophylaxis: Lovenox. #9. CODE status: Patient GARRY is her daughter and living will is currently in place. Discussed CODE status at length including difference between FULL code, DNR-CCA and DNR-CC status. Following discussions about the differences in these status, requested DNR-CCA, no intubation. Examples discussed and status confirmed. Advanced Care Planning Face to Face Time: 16 minutes. Charges/Coding Visit Charges Inpatient E&M: 46086 Init Hosp L3 Procedures Hospitalists Procedures: 81704 Advncd Care Plan 30 Min 12/17/24 0118 Cosigner Signature (if applicable): CC: Dr. Ale Newton MD; Dr. Danielle Paige DO~ Signed [facility]06-03-2025 Discharge summary [facility] Medical Records Department [address] [place] [address] Emergency Department Summary 12/17/24 MR#: [id number] Acct: [id number] Name: MARGIE FULTON Rep # :[id number] : 1940 84 From: Albert grant DO PCP: Dr. Danielle Paige DO Status:REG ER Location: ED HPI History of Present Illness Chief Complaint: Nausea/Vomiting Narrative Narrative: Chief complaint and HPI: Nausea, vomiting, constipation. History taken by patient as well as medical record. 84-year-old female with past medical historyof osteoporosis, HLD presents for evaluation of nausea, vomiting, constipation. Onset of symptoms 3 days. Patient states she usually does not suffer from constipation. Took Metamucil today with no relief. Patient states she was concerned she had a UTI due to her symptoms in which she followed up with urology, Dr. Hendricks today. States that she was started on antibiotics after positive urine. On chart review, patient had a recent laparoscopic c holecystectomy with Dr. Cano on 12/02. Patient states that she has been doing well from the surgery. She denies any fever, chills, shortness of breath, URI symptoms, chest pain. States she has diffuse abdominal pain. Associated symptom is decreased p.o. intake. Review of systems: See HPI Medications: As listed on the chart Allergies: As listed on the chart PFSH: Per chart Vital signs: As listed on the chart. Reviewed. Physical exam: Gen: A&O x3, NAD Head: Normocephalic, atraumatic Eyes: No sclera icterus, conjunctiva clear ENT: Dry mucous membranes Neck: Trachea midline, No JVD CV: Tachycardic, regular rhythm, no murmurs, no peripheral edema Resp: Lungs CTA BL, no w/r/c GI: Abd soft, non-distended, mildly tender to palpation diffusely, no r/r/g : No CVA tenderness Musc: Full ROM, no deformity Skin: Warm, dry Neuro: Alert, oriented, grossly intact, sensation intact Psych: Cooperative, appropriate mood and affect [facility] Medical History Gallbladder polyp Wears glasses Post-menopausal [...] mg PO DAILY 10/18/24 Unk nown History omeprazole 40 mg capsule,delayed 40 mg PO BID 12/02/24 12/02/24 History release ondansetron HCl 4 mg tablet 4 mg PO Q6H PRN nausea and 12/12/24 Unknown Rx vomiting #8 tabs Allergy/AdvReac Type Severity Reaction Status Date / Time No Known Allergies Allergy Verified 12/17/24 20:12 Family History Mother Rheumatoid arthritis Father Rheumatoid arthritis Other Malignant neoplasm determined by biopsy of testicle Surgical History S/P cholecystectomy History of esophagogastroduodenoscopy (EGD) History of lobectomy [...] wine substance use type: does not use EXAM Physical Exam Const Vital Signs: 12/17/24 20:10 12/17/24 20:45 12/17/24 21:16 Temperature 99.1 F 97.9 F Temperature Source Oral Temporal Pulse Rate 160 H 117 H 108 H Respiratory Rate 16 19 H 18 Blood Pressure 119/88 H 135/78 H 143/81 H Blood Pressure Mean 98 97 101 Pulse Ox 97 95 98 Oxygen Delivery Method Room Air 12/17/24 21:16 12/17/24 22:00 Temperature 98 F 98 F Temperature Source Temporal Temporal Pulse Rate 106 H 106 H Respiratory Rate 17 16 Blood Pressure 143/81 H 146/85 H Blood Pressure Mean 101 105 Pulse Ox 97 96 Oxygen Delivery Method Room Air MDM MDM MDM Narrative Medical decision making narrative: 84-year-old female with past medical history of osteoporosis, HLD presents for evaluation of nausea, vomiting, constipation. Onset 3 days. Associated symptomis decreased p.o. intake. Patient had recent laparoscopic cholecystectomy on 12/02. Healed well from surgery. Denies taking narcotics. Differential diagnosis includes but is not limited to viral illness, WALTER, electrolyte abnormality, UTI, obstruction, colitis, intra-abdominal abscess. NS bolus, Zofran ordered for symptoms. Abdominal pain workup ordered including CT abdomenand pelvis. EKG reviewed see below. CBC with leukocytosis of 14.9. No anemia. CMP negative for significant electrolyte abnormality or WALTER. Patient has baseline transaminitis and elevated alkaline phosphatase. Recently just had hergallbladder removed. Lactic acid unremarkable. Lipase unremarkable. UA positive for UTI. Urine culture sent. On chart review, patient has a previous urine culture with Proteus that was pansensitive. CT abdomen pelvis shows constipation with colonic diverticulosis. Patient will warrant admission given that she cannot tolerate p.o. intake. I do think she would benefit from IV antibiotics and hydration. Patient was updated of all the results and confirmedunderstand the plan. She was offered an enema which she accepted therefore thiswasordered. Patient was discussed with the hospitalist service who accepted admission. EKG: Interpreted by me/EM physician: EKG shows sinus tachycardia with a heart rate of123. Nonspecific STchanges which I think are secondary to rate. No ST elevation Impression: 1. UTI 2. Constipation 3. Inability to tolerate p.o. intake with nausea and vomiting Lab Data Labs: Laboratory Results - last 24 hr 12/17/24 12/17/24 12/17/24 20:24 20:45 21:30 WBC 14.9 H RBC 4.17 L Hgb 13.1 Hct 39.0 MCV 93.5 MCH 31.4 MCHC 33.6 RDW Std Deviation 44.2 H RDW Coeff of [place] 12.9 Plt Count 382 MPV 9.1 Immature Gran % (Auto) 0.300 Neut % (Auto) 81.9 H Lymph % (Auto) 11.0 L [place] % (Auto) 5.6 Eos % (Auto) 0.7 Baso % (Auto) 0.5 Absolute Neuts (auto) 12.2 H Absolute Lymphs (auto) 1.64 Nucleated RBC % 0 Sodium 135 Potassium 3.7 Chloride 98 Carbon Dioxide 22.9 Anion Gap 14 BUN 18 Creatinine 0.79 Estim Creat Clear Calc 44.85 L Est GFR (MDRD) Non-Af 75 BUN/Creatinine Ratio 23.2 H Glucose 110 H Lactic Acid < 1.0 Calcium 9.7 Total Bilirubin 0.70 AST 38 H ALT 39 H Alkaline Phosphatase 199 H Total Protein 7.0 Albumin 3.9 Globulin 3.2 Albumin/Globulin Ratio 1.2 Lipase 21 Urine Color Yellow Urine Clarity Cloudy Urine pH 6.0 Ur Specific [place] 1.015 Urine Protein 30 H Urine Glucose (UA) Normal Urine Ketones 50 H Urine Occult Blood 150 H Urine Nitrite Positive H Urine Bilirubin Negative Urine Urobilinogen 1 H Ur Leukocyte Esterase 500 H Urine RBC 0-5 SEEN Urine WBC >100 SEEN Ur Squamous Epith Cells 0-5 SEEN Urine Bacteria 1+ Urine Mucus 0 SEEN Radiography Diagnostic Testing: Clinical Impression(s) from Imaging Studies Abdomen/Pelvis CT 12/17/24 20:35 IMPRESSION: Dense colonic stool which may suggest constipation. Colonic diverticulosis. Chronic and ancillary findings as above. Reading Location: [place] [address] Discharge Plan Triage Chief Complaint: Nausea/Vomiting ED Provider: Albert Julian Dx/Rx/DC Orders Prescriptions: No Action mecobalamin (vitamin B12) 1,000 mcg tablet,chewable 1,000 mcg PO DAILY diltiazem HCl 30 mg tablet 30 mg PO QDAY sulindac 200 mg tablet 200 mg PO BID ondansetron HCl 4 mg tablet 4 mg PO Q6H PRN (Reason: nausea and vomiting) Qty: 8 0RF calcium carbonate-vitamin D3 600 mg-20 mcg [...] mg capsule,delayed release(DR/EC) 40 mg PO BID Primary Care Provider: Danielle Paige Referrals: Danielle Paige DO [Primary Care Provider] - Print Language: Taiwanese What to do if you have Problems For any increased pain, shortness of breath, bleeding, nausea or vomiting, chestpain, or any unexpected problems, contact your Primary Care Provider. Call [facility] ([phone]) or report tothe closest Emergency Room. Call 911 if necessary. 12/17/24 4667 Cosigner Signature (if applicable): CC: Dr. Danielle Paige DO ~ Signed [facility]06-03-2025 Radiology Diagnostic study note [facility] Imaging Services [address] [place], [place] [id number] Abdomen/Pelvis W IV Cont ONLY MR#: [id number] Acct: [id number] Name: MARGIE FULTON Rep #: [id number] : 1940 F 84 From: Steven Salas MD PCP: Dr. Danielle Paige DO Status: REG ER Study:Abdomen/Pelvis W IV Cont ONLY Date of E xam: 12/17/24 Exam# [id number] Ordering Dr: Albert Miner DO PROCEDURE: ABDOMEN/PELVIS W IV CONT ONLY 12/17/2024 REASON FOR EXAM: CONSTIPATION, ABDOMINAL PAIN TECHNIQUE: Abdomen and pelvis CT with intravenous contrast. Coronal and Sagittal reconstruction series were provided. CONTRAST: Isovue 370 VOLUME: 91 mL. One or more dose reduction techniques were used (e.g., Automated exposure control, adjustment of the mA and/or kV according to patient size, use of iterative reconstruction technique. RADIATION DOSE SUMMARY: CTDlvol: 9.97+ 8.70 mGy DLP: 460.35 mGycm COMPARISON: 11/11/2024. FINDINGS: Coronary artery calcifications. Mild bibasilar linear atelectasis versus scar. The peripheral soft tissues are unremarkable. A sacral stimulator is present. Grade 1 anterolisthesis of L4 on L5. Degenerative changes of the spine. Degenerative changes of the hips. Mild atherosclerosis. Normal caliber abdominal aorta. No suspicious lymphadenopathy. Unremarkable liver. Surgically absent gallbladder. The pancreas, spleen, adrenals are unremarkable.Left kidney cyst. Additional bilateral subcentimeter renal lesions that are too small to characterize. Symmetric enhancement of the bilateral kidneys. Right kidney extrarenal pelvis. Unremarkable appearance of the urinary bladder. Atrophic uterus which is within normal limits for the patient's age. Normal caliber large and small bowel. Colonic diverticulosis. Dense colonic stool. CT/Abdomen/Pelvis W IV Cont ONLY IMPRESSION: Dense colonic stool which may suggest constipation. Colonic diverticulosis. Chronic and ancillary findings as above. Reading Location: [id number] CC: Dr. Albert Julian DO; Dr. Danielle Paige DO ~ Water Pollution Specialist: Signed [facility]2025 Consult note [facility] Medical Records Department [address] [place] [address] Anesthesia Postop Eval II 12/02/24 1147 MR#: [id number] Acct: [id number] Name: MARGIE FULTON Rep # :[id number] : 1940 84 From: Duc Muir MD PCP: Dr. Danielle Paige, DO Status:REG SDC Y Race: C Location: [facility]21-1 Anesthesia Postop Eval I Sum Postop Eval Completion status Anesthesia document: Postop Eval 1 completed: Yes Anesthesia Postop Eval I Summary Anesthesia Postop Eval I Summary: Anesthesia Postop Eval I: Assessment Summary Airway patent Yes 12/02/24 11:03 ENGINEERING SPECIALIST TECHNICIAN.JDEF Spontaneous unlabored Yes 12/02/24 11:03 ENGINEERING SPECIALIST TECHNICIAN.JDEF respirations Mental status Awake 12/02/24 11:03 ENGINEERING SPECIALIST TECHNICIAN.JDEF nausea No 12/02/24 11:03 ENGINEERING SPECIALIST TECHNICIAN.JDEF Vomiting No 12/02/24 11:03 ENGINEERING SPECIALIST TECHNICIAN.JDEF Anesthesia Postop Eval I: Fluid Summary Crystalloid volume administer 1,100 12/02/24 11:03 ENGINEERING SPECIALIST TECHNICIAN.JDEF (ml) Colloids volume administered ( ml) Blood Product volume administered (ml) Total IV fluid infused 1,100 12/02/24 11:03 ENGINEERING SPECIALIST TECHNICIAN.JDEF Anesthesia Postop Eval I: Summary Notes Anesthesia Complication No 12/02/24 11:03 ENGINEERING SPECIALIST TECHNICIAN.JDEF Anesthesia Complication Comment: Post-operative progress note Anesthesia: Postop Eval II Evaluation Mental status: Awake Pain Level: 2 nausea: No Vomiting: No 12/02/24 1147 > Date _ Duc Muir MD [facility] Signature: Date CC: ~ Signed [facility]2025 Discharge summary Author Carlos Cano [facility] Note Date/Time December 02, 2024 11:06 am [facility] Medical Records Department [address] [place] [address] Instructions for Home/Discharge Instructions 12/02/24 1103 MR#: [id number] Acct: [id number] Name: MARGIE FULTON Rep # :[id number] : 1940 84 From: Carlos Cano MD PCP: Dr. Danielle Paige, DO Status:REG [facility] Discharge Instructions Diet Discharge Diet: Light diet [...] Care Provider: Danielle Paige Instructions Print Language: Taiwanese Discharge Orders/Prescriptions Prescriptions: New oxycodone-acetaminophen [Percocet] 5-325 [...] Order can be placed): Home, Self Care 12/02/241105<Electronically signed by Carlos Cano MD>Carlos Cano MD CC: Dr. Danielle Paige, DO ~ Signed [facility] Work Phone: 1(685) 294-764805-19-2025 Consult note Author Juliana [facility] Note Date/Time December 02, 2024 11:03 am [facility] Medical Records Department [address] [place] [address] Anesthesia Postop Eval I 12/02/241101 MR#: [id number] Acct: [id number] Name: MARGIE FULTON Rep # :[id number] : 1940 84 From: Juliana Huff CRNA PCP: Dr. Danielle Paige DO Status:REG [facility] Y Race: C Location: [place] [address] Anesthesia: Postop Eval I Current Vital Signs [...] Yes 12/02/241102 <Electronically signed by Juliana moulton ENGINEERING SPECIALIST TECHNICIAN> Date _ Juliana Huff ENGINEERING SPECIALIST TECHNICIAN Cosigner Signature: Date CC: ~ Signed [facility] Work Phone: 1(930) 220-196405-19-2025 History and physical note Author Carlos Cano [facility] Note Date/Time December 02, 2024 9:22a m [facility] Medical Records Department [address] [place] [address] History & Physical Exam 12/02/24919 MR#: [id number] Acct: [id number] Name: MARGIE FULTON Rep # :[id number] : 1940 84 From: Carlos Cano MD PCP: Dr. Danielle Paige, DO Status:REG [facility] Location: [place] [address] HPI - General General Date of Admission: [...] today for further evaluation and treatment recommendations [facility] Medical History Gallbladder polyp Wears glasses Post-menopausal [...] began shortly Charges/Coding Visit Charges Inpatient E&M: 66180 Init Hosp L2 12/02/24 0922 <Electronically signed by Carlos Cano MD> Cosigner Signature (if applicable): CC: Dr. Danielle Paige DO; Dr. Carlos Cano MD~ Signed [facility] Work Phone: 1(323) 229-807105-19-2025 Procedure note [facility] Medical Records Department [address] [place] [address] Operative Report 12/02/24 1106 MR#: [id number] Acct: [id number] Name: MARGIE FULTON Rep # :[id number] : 1940 84 From: Carlos Cano MD PCP: Dr. Danielle Paige DO Status:REG [facility] Location: [place] [address] Problems Associated Problem List Diagnoses (1) Abnormal US (ultrasound) of abdomen: Procedures Digestive 40xxx-49xxx: 54798 Laparo cholecystectomy/graph Operative Report (Standard) Operative Information Date of Procedure: 12/02/24 Pre-Operative Diagnosis: Biliary colic Post-Operative Diagnosis: Same Surgery/Procedure Performed: Robotic cholecystectomy with ICG cholangiogram aerodynamics professor: Yes Erection Shop Supervisor: Brandi Infante Tasks completed by hotel assistant manager: Closing and Other Additional electrician assistant?: No Type of Anesthesia: General and [...] up and rolled to the left. The [employer] robot was then rolled into position and [...] Paige DO; Dr. Carlos Cano MD~ Signed [facility]2025 Discharge summary [facility] Medical Records Department [address] [place] [address] Instructions for Home/Discharge Instructions 12/02/24 1103 MR#: [id number] Acct: [id number] Name: MARGIE FULTON Rep # :[id number] : 1940 84 From: Carlos Cano MD PCP: Dr. Danielle Paige DO Status:REG [facility] Discharge Instructions Diet Discharge Diet: Light diet [...] Care Provider: Danielle Paige Instructions Print Language: Taiwanese Discharge Orders/Prescriptions Prescriptions: New oxycodone-acetaminophen [Percocet] 5-325 [...] can be placed): Home, Self Care 12/02/24 110Stbridgett Cano MD CC: Dr. Danielle Paige DO ~ Signed [facility]2025 Consult note [facility] Medical Records Department [address] [place] [address] Anesthesia Postop Eval I 12/02/241101 MR#: [id number] Acct: [id number] Name: MARGIE FULTON NOHEMI Rep # :[id number] : 1940 84 From: Juliana Huff CRNA PCP: Dr. Danielle Paige, DO Status:REG SD Y Race: C Location: [place] [address] Anesthesia: Postop Eval I Current Vital Signs [...] document: Postop Eval 1 completed: Yes 12/02/241102 st ENGINEERING SPECIALIST TECHNICIAN> Date _ Juliana Huff ENGINEERING SPECIALIST TECHNICIAN Cosigner Signature: Date CC: ~ Signed [facility]2025 Consult note Author Duc [facility] Note Date/Time December 02, 2024 8:06a [facility] Medical Records Department [address] [place] [address] Pre-Anesthesia Evaluation 12/02/24 0805 MR#: [id number] Acct: [id number] Name: MRAGIE FULTON NOHEMI Rep # :[id number] : 1940 84 From: Duc Muir MD PCP: Dr. Danielle Paige, DO Status:REG [facility] Y Race: C Location: [place] [address] ASA Classification* ASA Classification ASA Classification: 2 [...] Robotic Cholecystectomy Anesthesia History Anesthesia History - script girl: Anesthesia History - script girl Hx Hospitalization No 11/25/24 09:33 Any Problems [...] take am of surgery PONV PONV - script girl: PONV - script girl Female Yes 11/25/24 09:33 HX of Motion [...] 11/29/24 08:55 Respiratory Assessment Respiratory Assessment - script girl: Respiratory Tract Infection Hx - script girl Hx Respiratory Tract Infection Yes: Patient has a chronic 11/25/24 09:33 cough. Nothing acute. STOP Sleep Apnea STOP Sleep Apnea - script girl: STOP Sleep Apnea - script girl Hx Hypertension No 11/25/24 09:33 Hx Sleep [...] Tobacco Use History Tobacco Use History - script girl: Tobacco Use History - script girl Tobacco Use Smoking Status Never smoker 11/25/24 09:33 Hx Tobacco Use No 11/25/24 09:33 Years Smoking Packs Smoked per Day Smoking Cessation Date was within the last 15 years Hx Smoking Cessation Date Hx Smoking Cessation Counseling Hematologic Medial History Hematologic Hx - script girl: Hematologic Medical Hx - orchid hand Hx of Blood Transfusion Yes 11/25/24 09:33 [...] confused, unrespo /Reproduction History /Reproductive History - script girl: /Reproductive Hx- script girl Hx Now No 11/25/24 09:33 Gestational Age [...] 30 mg tablet 30 mg PO QDAY 10/04/23/02/07 05:00 History sulindac 200 mg tablet 200 [...] MD > Date _ Duc Muir MD [facility] Signature: Date CC: ~ Signed [facility] Work Phone: 1(386) 248-419305-19-2025 History and physical note [facility] Medical Records Department [address] [place] [address] History & Physical Exam 12/02/24919 MR#: [id number] Acct: [id number] Name: MARGIE FULTON Rep # :[id number] : 1940 84 From: Carlos Caon MD PCP: Dr. Danielle Paige, DO Status:[facility] Location: [place] [address] HPI - General General Date of Admission: [...] presents today forfurther evaluation and treatment recommendations [facility] Medical History Gallbladder polyp Wears glasses Post-menopausal [...] began shortly Charges/Coding Visit Charges Inpatient E&M: 91385 Init Hosp L2 12/02/24 0922 Cosigner Signature (if applicable): CC: Dr. Danielle Paige DO; Dr. Carlos Cano MD~ Signed [facility] Medical Records Department [address] [place] [address] Pre-Anesthesia Evaluation 12/02/24 0805 MR#: [id number] Acct: [id number] Name: MARGIE FULTON Rep # :[id number] : 1940 84 From: Duc Muir MD PCP: Dr. Danielle Paige DO Status:REG SDC Y Race: C Location: [place] [address] ASA Classification* ASA Classification ASA Classification: 2 [...] Robotic Cholecystectomy Anesthesia History Anesthesia History - script girl: Anesthesia History - script girl Hx Hospitalization No 11/25/24 09:33 Any Problems [...] take am of surgery PONV PONV - script girl: PONV - script girl Female Yes 11/25/24 09:33 HX of Motion [...] 11/29/24 08:55 Respiratory Assessment Respiratory Assessment - script girl: Respiratory Tract Infection Hx - script girl Hx Respiratory Tract Infection Yes: Patient has a chronic 11/25/24 09:33 cough. Nothing acute. STOP Sleep Apnea STOP Sleep Apnea - script girl: STOP Sleep Apnea - script girl Hx Hypertension No 11/25/24 09:33 Hx Sleep [...] Tobacco Use History Tobacco Use History - script girl: Tobacco Use History - script girl Tobacco Use Smoking Status Never smoker 11/25/24 09:33 Hx Tobacco Use No 11/25/24 09:33 Years Smoking Packs Smoked per Day Smoking Cessation Date was within the last 15 years Hx Smoking Cessation Date Hx Smoking Cessation Counseling Hematologic Medial History Hematologic Hx - script girl: Hematologic Medical Hx - orchid hand Hx of Blood Transfusion Yes 11/25/24 09:33 [...] confused, unrespo /Reproduction History /Reproductive History - script girl: /Reproductive Hx- script girl Hx Now No 11/25/24 09:33 Gestational Age [...] (vitamin B12) 1,000 1,000 mcg PO DAILY 02/ 26/24 Unknown History mcg chewable tablet diltiazem HCl [...] MD Cosigner Signature: Date CC: ~ Signed [facility]03-27-2025 Consult note [facility] Medical Records Department [address] [place] [address] Anesthesia Postop Eval I 10/10/24751 MR#: [id number] Acct: [id number] Name: MARGIE FULTON Rep # :[id number] : 1940 84 From: Rocky Worthy PCP: Dr. Danielle Paige, DO Status:REG SDC Y Race: C Location: [place] [address] Anesthesia: Postop Eval I Current Vital Signs [...] document: Postop Eval 1 completed: Yes 10/10/24 075 > Date _ Rocky Alvarez Signature: Date CC: ~ Signed [facility]03-27-2025 Evaluation note* Diagnosis Onset Date Resolution Status Admit Date Cough acute October 10 5:50am Dysphagia acute October 10 5:50am Abdominal pain acute October 17, 2024 12:49pm Abnormal US (ultrasound) of abdomen acute October 17, 2024 12:49pm Bloating acute October 17 12:49pm Elevated alkaline phosphatas e level acute October 17, 2024 12:49pm Personal history of lung cancer acut e October 17, 2024 12:49pm Weight loss acute [...] abdomen acute December 02, 2024 8 :00am Seroma after procedure acute Ma y 2024 10:52am Nausea and vomiting resolved November 152024 10:52am S/P cholecystectomy acute December 16, 2024 8:29am Nausea and vomiting resolved December 17, 2024 10:48pm UTI (urinary tract infection) inacti ve December 17, 2024 10:48pm Bloating acute January 01 8:30am Epigastric pain acute December 8:30am Fatigue acute January 01 8:30am Nausea acute January 01 8:30am [facility] Work Phone: 1(942) 902-612903-27-2025 Evaluation note* Diagnosis Onset Date Resolution Status Admit Date Cough acute October 10 5:50am Dysphagia acute October 10 5:50am Abdominal pain acute October 17, 2024 12:49pm Abnormal US (ultrasound) of abdomen acute October 17, 2024 12:49pm Bloating acute October 17 12:49pm Elevated alkaline phosphatas e level acute October 17, 2024 12:49pm Personal history of lung cancer acut e October 17, 2024 12:49pm Weight loss acute [...] abdomen acute December 02, 2024 8 :00am Seroma after procedure acute Ma y 2024 10:52am Nausea and vomiting resolved November 152024 10:52am S/P cholecystectomy acute December 16, 2024 8:29am Nausea and vomiting resolved December 17, 2024 10:48pm UTI (urinary tract infection) inacti ve December 17, 2024 10:48pm Bloating acute January 01 8:30am Epigastric pain acute December 8:30am Fatigue acute January 01 8:30am Nausea acute January 01 8:30am Chest pain acute January 09 1:53pm SOB (shortness of breath) acute January 09, 2025 1:53pm Tachycardia acute January 09 1:53pm [facility] Work Phone: 1([phone]) 858-669603-27-2025 Evaluation note* Diagnosis Onset Date Resolution Status Admit Date Cough acute October 10 5:50am Dysphagia acute October 10 5:50am Abdominal pain acute October 17, 2024 12:49pm Abnormal US (ultrasound) of abdomen acute October 17, 2024 12:49pm Bloating acute October 17 12:49pm Elevated alkaline phosphatas e level acute October 17, 2024 12:49pm Personal history of lung cancer acut e October 17, 2024 12:49pm Weight loss acute [...] abdomen acute December 02, 2024 8 :00am Seroma after procedure acute Ma y 2024 10:52am Nausea and vomiting resolved November 152024 10:52am S/P cholecystectomy acute December 16, 2024 8:29am Nausea and vomiting resolved December 17, 2024 10:48pm UTI (urinary tract infection) inacti ve December 17, 2024 10:48pm Bloating acute January 01 8:30am Epigastric pain acute December 8:30am Fatigue acute January 01 8:30am Nausea acute January 01 8:30am Chest pain acute January 09 1:53pm Coronary artery calcificatio n seen on CAT scan acute January 09, 2025 1:53pm Tachycardia acute January 09 1:53pm Asthma chronic January 23 8:16am [facility] Work Phone: 1(407) 436-356403-27-2025 Procedure note [facility] Medical Records Department [address] [place] [address] Operative Report - CC Letter MR#: [id number] Acct: [id number] Name: MARGIE FULTON Rep # :[id number] : 1940 84 From: Aron Frank DO PCP: Dr. Danielle Paige DO Status:REG [facility] 10/10/2024 Danielle Paige [address] [facility] [place] [address] [place] [address] Re : Upper GI endoscopy procedure for Margie Fulton Dear Dr. Paige This procedure was performed [...] AM This report has been signed electronically. 10/10/24 0731 Date _ Aron Clarke Signature: Date (if indicated) CC: Dr. Danielle Paige DO; Aron Frank DO ~ Date Dictated: 10/10/24 0711 Date Transcribed: Water Pollution Specialist: RF Signed [facility]03-27-2025 Procedure note [facility] Medical Records Department [address] [place] [address] EGD Report MR#: [id number] Acct: [id number] Name: MARGIE FULTON Rep # :[id number] : 1940 84 From: Aron Frank DO PCP: Dr. Danielle Paige DO Status:REG [facility] Patient Name: Margie Fulton Procedure Date: 10/10/2024 [...] pathology results. Procedure Code(s): --- Professional --- 15337, Esophagogastroduodenoscopy, flexible, transoral; with insertion of guide wire followed by passage of dilator(s) through esophagus over guide wire 32655, 59,51, Esophagogastroduodenoscopy, flexible, transoral; with biopsy, single or multiple CPT copyright 2021 [employer]. All rights reserved. The codes documented in this report are preliminary and upon cpc coder review may be revised to meet current compliance requirements. Aron Frank DO 10/10/2024 7:31:21 AM This report has been signed electronically. Number of Addenda: 0 Note Initiated On: 10/10/2024 7:11 AM 10/10/24 0731 Date _ Aron Hugginsignollie Signature: Date (if indicated) CC: Dr. Danielle Paige DO; Aron Frank DO ~ Date Dictated: 10/10/24710 Date Transcribed: Water Pollution Specialist: RF Signed [facility]03-27-2025 History and physical note [facility] Medical Records Department [address] [place] [address] History & Physical Exam 10/10/24706 MR#: [id number] Acct: [id number] Name: MARGIE FULTON Rep # :[id number] : 1940 84 From: Aron Frank DO PCP: Dr. Danielle Paige DO Status:REG [facility] Location: [place] [address] HPI - General General Date of Admission: [...] and hoarseness - states laryngoscopy was negative [facility] lung CA - lobe ectomy October 2021 - no chemo or radiation - denies any kidney or cardiac issues - Colonoscopy 5 years ago was normal per patient - remains active - continues to drive - lives alone [facility] Medical History Wears glasses Post-menopausal Cancer Thyroid [...] applicable): CC: Dr. Danielle Paige DO; Aron Friend, DO~ Signed [facility]03[facility]27[facility] Consult note [facility] Medical Records Department [address] [place] [address] Pre-Anesthesia Evaluation 10/10/24 0633 MR#: [id number] Acct: [id number] Name: MARGIE FULTON Rep # :[id number] : 1940 84 From: Alex Rudolph MD PCP: Dr. Danielle Paige DO Status:REG SDC Y Race: C Location: [place] [address] ASA Classification* ASA Classification ASA Classification: 2 [...] Procedure(s): EGD Anesthesia History Anesthesia History - script girl: Anesthesia History - script girl Hx Hospitalization No 10/08/24 11:46 Any Problems [...] sips of water?: Yes PONV PONV - script girl: PONV - script girl Female Yes 10/08/24 11:46 HX of Motion [...] 10/10/24 06:17 Respiratory Assessment Respiratory Assessment - script girl: Respiratory Tract Infection Hx - script girl Hx Respiratory Tract Infection No 10/08/24 11:46 Any additional information?: Yes Hx Respiratory Tract Infection: Yes (Patient has a chronic cough. Nothing acute.) STOP Sleep Apnea STOP Sleep Apnea - script girl: STOP Sleep Apnea - script girl Hx Hypertension No 10/08/24 11:46 Hx Sleep [...] Tobacco Use History Tobacco Use History - script girl: Tobacco Use History - script girl Tobacco Use Smoking Status Never smoker 10/08/24 11:46 Hx Tobacco Use No 10/08/24 11:46 Years Smoking Packs Smoked per Day Smoking Cessation Date was within the last 15 years Hx Smoking Cessation Date Hx Smoking Cessation Counseling Hematologic Medial History Hematologic Hx - script girl: Hematologic Medical Hx - orchid hand Hx of Blood Transfusion Yes 10/08/24 11:46 [...] confused, unrespo /Reproduction History /Reproductive History - script girl: /Reproductive Hx- script girl Hx Now Gestational Age (in weeks): EDC: [...] additional complaints, except as documented. 10/10/24 0640 annem-arie PAYNE> Date _ Alex Rudolph MD Cosigner Signature: Date CC: ~ Signed [facility]03-25-2025 Radiology Diagnostic study note [facility] Imaging Services [address] [place], [place] [address] Abdomen Limited MR#: [id number] Acct: [id number] Name: MARGIE FULTON Rep #: [id number] : 1940 F 84 From: Chantell Simpson MD PCP: Dr. Danielle Paige DO Status: REG CLI Study:Abdomen Limited Date of Exam: 09/15 12/08 Exam# [id number] Ordering Dr: Savanna Gagnon BOAT FINISHER-Christine PROCEDURE: ABDOMEN LIMITED 10/08/2024 REASON FOR EXAM: [...] imaging. 3. Mild hepatic steatosis. Reading Location: [facility] CC: ZACKARY Gagnon; Dr. Danielle Paige DO ~ Water Pollution Specialist: Signed [facility]03-14-2025 Radiology Diagnostic study note [facility] Imaging Services [address] [address] [place], [place] [address] Esophagus Dual Contrast MR#: [id number] Acct: [id number] Name: MARGIE FULTON Rep #: [id number] : 1940 F 84 From: Bennett Martins MD PCP: Dr. Danielle Paige DO Status: REG CLI Study:Esophagus Dual Contrast Date of Exam: 09/27/24 Exam# [id number] Ordering Dr: Savanna Gagnon BOAT FINISHER-C PROCEDURE: ESOPHAGUS DUAL CONTRAST REASON FOR EXAM: [...] No evidence of gastroesophageal reflux. Reading Location: [place] [address] CC: BOAT FINISHER-C Savanna Gagnon; Dr. Danielle Paige DO ~ Water Pollution Specialist: Signed [facility]03-12-2025 Procedure note [facility] Speech Pathology [address] [place] [address] Modified Barium Swallow Study MR#: [id number] Acct: [id number] Name: MARGIE FLUTON Rep # :[id number] : 1940 84 From: Jazlyn Osorio, [facility]-GEAR CODING MACHINE OPERATOR Modified Barium Swallow Patient Information Study [...] She currently takes omeprazole to manage GERD. GEAR CODING MACHINE OPERATOR inspectedoral cavity and pt has hard, [...] cup: Result: 1= does not enter airway [place] Thick Liquid via large single sip: cup: [...] ofweight loss this year from swallowing problem. GEAR CODING MACHINE OPERATOR recommending increased nutrition and calories via liquids.) Education Completed: 1. Described result of evaluation. Status Active ST Patient: Active Contact Information [facility] Speech Therapy:: Jazlyn Fraser M.A. CCC-GEAR CODING MACHINE OPERATOR? Speech-Language Pathologist?? [facility] [address] [place] [address]? [email or web address]?? [phone] 09/25/24 [address] [place] CCC-GEAR CODING MACHINE OPERATOR> Date/Time Jazlyn Fraser M.A. CCC-GEAR CODING MACHINE OPERATOR Co-Signature Required for all Medicare patients Date/Time Co-Signature CC: ~ [facility]02-20-2025 Evaluation note* Diagnosis Onset Date Resolution Status Admit Date Asthma chronic September 05, 2024 8:01am Cough acute October 10 5:50am Dysphagia acute October 10 5:50am Abdominal pain acute October 17, 2024 12:49pm Abnormal US (ultrasound) of abdomen acute October 17, 2024 12:49pm Bloating acute October 17 12:49pm Elevated alkaline phosphatas e level acute October 17, 2024 12:49pm Personal history of lung cancer acut e October 17, 2024 12:49pm Weight loss acute October 17 12:49pm Abnormal US (ultrasound) of abdomen acute November 12, 2024 8:54am Elevated CEA acute November 12, 2024 8:54am Epigastric pain acute October 8:54am Nausea acute November 12 8:54am Weight loss acute November 12, 2 025 8:54am Gallbladder polyp acute November 8:55am Abdominal pain acute December 02, 2024 8:00am Abnormal US (ultrasound) of abdomen acute December 02, 2024 8 :00am Seroma after procedure acute 2024 10:52am Nausea and vomiting resolved November 152024 10:52am S/P cholecystectomy acute December 16, 2024 8:29am Nausea and vomiting resolved December 17, 2024 10:48pm UTI (urinary tract infection) inacti ve December 17, 2024 10:48pm [facility] Work Phone: 1(135) 328-743802-20-2025 Evaluation note* Diagnosis Onset Date Resolution Status Admit Date Asthma chronic September 05, 2024 8:01am Cough acute October 10 5:50am Dysphagia acute October 10 5:50am Abdominal pain acute October 17, 2024 12:49pm Abnormal US (ultrasound) of abdomen acute October 17, 2024 12:49pm Bloating acute October 17 12:49pm Elevated alkaline phosphatas e level acute October 17, 2024 12:49pm Personal history of lung cancer acut e October 17, 2024 12:49pm Weight loss acute [...] abdomen acute December 02, 2024 8 :00am Seroma after procedure acute Ma 2024 10:52am Nausea and vomiting resolved November 152024 10:52am S/P cholecystectomy acute December 16, 2024 8:29am Nausea and vomiting resolved December 17, 2024 10:48pm UTI (urinary tract infection) inacti ve December 17, 2024 10:48pm Bloating acute January 01 8:30am Epigastric pain acute December 8:30am Nausea acute January 01 8:30am [facility] Work Phone: 1(691) 717-882702-11-2025 Evaluation note* Diagnosis Onset Date Resolution Status Admit Date Cough acute August 27, 2024 1:07pm Dysphagia acute August 27, 2024 1:07pm Elevated alkaline phosphatas e level acute August 27 025 1:07pm Elevated AST (SGOT) acute Febru [email or web address] 1:07pm Weight loss acute August 1:07pm Gastroesophageal reflux disease noneactive August 27 025 1:07pm Asthma chronic September 05, 2024 8:01am [facility] Work Phone: 1(296) 384-833502-11-2025 Evaluation note* Diagnosis Onset Date Resolution Status [...] 10 5:50am Dysphagia acute October 10 5:50am [facility] Work Phone: 1(779) 906-791602-11-2025 Evaluation note* Diagnosis Onset Date Resolution Status [...] 12:49pm Weight loss acute October 17 12:49pm [facility] Work Phone: 1(385) 595-199302-11-2025 Evaluation note* Diagnosis Onset Date Resolution Status [...] abdomen acute December 02, 2024 8 :00am [facility] Work Phone: 1(836) 616-622102-11-2025 Evaluation note* Diagnosis Onset Date Resolution Status [...] 12 8:54am Weight loss acute November 12 025 8:54am Gallbladder polyp acute November 8:55am Abdominal pain acute December 02, 2024 8:00am Abnormal US (ultrasound) of abdomen acute December 02, 2024 8 :00am Nausea and vomiting acute November 152024 10:52am Seroma after procedure acute Ma y 2024 10:52am [facility] Work Phone: 1(479) 859-711402-11-2025 Evaluation note* Diagnosis Onset Date Resolution Status Admit Date Cough acute August 27, 2024 1:07pm Dysphagia acute August 27, 2024 1:07pm Elevated alkaline phosphatas e level acute August 27 025 1:07pm Elevated AST (SGOT) acute Febru [email or web address] 1:07pm Weight loss acute August 1:07pm Gastroesophageal [...] 152024 10:52am Seroma after procedure acute Ma y 2024 10:52am S/P cholecystectomy acute December 16, 2024 8:29am Nausea and vomiting acute December 17, 2024 10:48pm UTI (urinary tract infection) acute December 17, 2024 10:48pm [facility] Work Phone: 1(112) 789-344202-11-2025 Evaluation note* Diagnosis Onset Date Resolution Status Admit Date Cough acute August 27, 2024 1:07pm Dysphagia acute August 27, 2024 1:07pm Elevated alkaline phosphatas e level acute August 27 025 1:07pm Elevated AST (SGOT) acute Febr [email or web address] 1:07pm Weight loss acute August 1:07pm Gastroesophageal [...] 12 8:54am Weight loss acute November 12 025 8:54am Gallbladder polyp acute November 8:55am Abdominal pain acute December 02, 2024 8:00am Abnormal US (ultrasound) of abdomen acute December 02, 2024 8 :00am Nausea and vomiting acute November 152024 10:52am Seroma after procedure acute Ma y 2024 10:52am S/P cholecystectomy acute December 16, 2024 8:29am UTI (urinary tract infection) acute December 17, 2024 10:48pm [facility] Work Phone: 1(842) 124-515309-26-2024 Note* Addendum Note - Vini Maurer MD - 04/11/2024 12:06 PM EDTAddended by: VINI MAURER on: 04/11/2024 12:06 PM Modules accepted: Orders [facility]09-26-2024 Telephone encounter Note* Telephone Encounter - [...] work to schedule sooner. Vini Maurer MD [facility]09-26-2024 Miscellaneous Notes* Telephone Encounter - Juliette [...] sooner. Vini Maurer MD [facility] Miscellaneous Notes* Addendum Note - Vini Maurer MD - 04/11/2024 12:06 PM EDTAddended by: VINI MAURER on: 04/11/2024 12:06 PM Modules accepted: [facility] History of Present illness Narrative* Vini Maurer MD - 04/11/2024 11:57 AM EDT Margie Velasquez Zoniacristobal presents today for a intradetrusor Botox injections. [...] Video-assisted cystourethroscopy was performed using a 19 Martiniquais 30 degree cystoscope with saline infusion. The [...] sooner. Vini Maurer MD [facility] Telephone encounter Note * Telephone Encounter - Ny Moser APRN.BAG MACHINE SET UP OPERATOR - 03/21/2024 5:41 PM EDT The following approved medication requests have been transmitted electronically. Requested Prescriptions Signed Prescriptions Disp Refills sulfamethoxazole-trimethoprim (BACTRIM DS) 800-160 mg per tablet 6 tablet 0 Sig: Take 1 tablet by mouth two times a day. Start one day before your bladder procedure. Authorizing Provider: [facility] Information Pharmacy Address Telephone [id number] [address] [place] [address] Ny Moser APRN.CNP March 21, 2024 5:41 PM [facility]09-05-2024 Miscellaneous Notes* Telephone Encounter - Ny Moser APRN.RUPINDER - 03/21/2024 5:41 PM EDT The following approved medication requests have been transmitted electronically. Requested Prescriptions Signed Prescriptions Disp Refills sulfamethoxazole-trimethoprim (BACTRIM DS) 800-160 mg per tablet 6 tablet 0 Sig: Take 1 tablet by mouth two times a day. Start one day before your bladder procedure. Authorizing Provider: [facility] Information Pharmacy Address Telephone [id number] [address] [place] [address] Ny Moser APRN.CNP March 21, 2024 5:41 PM * Telephone Encounter - Marline Yi RN - 03/21/2024 4:37 PM EDT 100 units Botox approved through 07/16/24 - NPCR. Sending to waiter/waitress captain for ppx abx order. Marline Yi RN [...] 21, 2024 1:49 PM [facility] Telephone encounter Note * Telephone Encounter - Marline Yi RN - 03/21/2024 4:37 PM EDT 100 units Botox approved through 07/16/24 - NPCR. Sending to waiter/waitress captain for ppx abx order. Marline Yi RN March 21, 2024 4:37 PM [facility]09-05-2024 Telephone encounter Note* Telephone Encounter - [...] Yi RN March 21, 2024 1:49 PM [facility]03-28-2024 NoteHNO ID: [id number] Author: VINI MAURER MD Service: ? Author [...] Video-assisted cystourethroscopy was performed using a 19 Martiniquais 30 degree cystoscope with saline infusion. The [...] then she should return PRN. Vini Maurer [facility]01-18-2024 Procedure [facility]04-26-2021 NoteDischarge Summary: Cardiothoracic Surgery Margie Fulton :1940 AGE: 80 y.o. ADMIT DATE: 11/05/2020 DISCHARGE DATE: 11/09/2020 DISCHARGING SURGEON: Rosemarie Mckeon MD, Office Number: [phone] PRIMARY CARE PHYSICIAN: DANIELLE PAIGE VISIT STATUS: [...] DISCHARGE MEDICATIONS: Margie Fulton Home Medication Instructions LC:[id number] Printed on:11/09/20 1705 Medication Information ALBUTEROL SULFATE IN Inhale into [...] us. SIGNED: Rajni Hwang MD 11/09/2020, 2:38 [facility]04-26-2021 History of Present illness Narrative* Rajni [...] (36.6 C) (Temporal) Resp 12 Ht 5' 5" (1.651 m) Wt 144 lb 13.5 oz [...] 96 103* 87 . CBC: Recent Labs 11/07/20234911/09/20 0226 WBC 7.5 6.4 HGB 12.0 11.8 [...] TTE pending - Gen diet - Gerardo mert, IS, acapella - PRN pain/nausea meds - [...] This note may have been dictated using [employer] Medical Practice Edition 2.6 and/or [employer] Voice Recognition Feature. The document was proofread; however, unrecognized voice recognition plastics engineer errors may be present. Associated attestation - Rosemarie Mckeon MD - 11/09/2020 12:49 PM EDT I personally performed a face to face diagnostic evaluation on this patient. I agree with the findings and plan of care as documented by the resident/SOAKER SODA WORKER/BOAT FINISHER/PA, unless otherwise noted. Rosemarie Mckeon MD * Grisel Garcia, FELA - [facility] - 11/08/2020 11:03 AM EDT PAGING: The Acute Pain Service providers are available via [facility]. Please reference [employer] for Pain Management Provider SANITATION MANAGER and direct all questions to the provider listed. Due to the current environment of [place] [address], PPE was worn for the duration of all face to face encounters including but not limited to an N95 in accordance with [facility] and hospital guidelines. 11/08/2020 Referring Physician: Rosemarie [...] Hcl 5 MG Tablet 60.00 8 [facility] [id number] Rit (0102) 0 56.25 MME Objective Findings: Height: 5' 5" (165.1 cm) Weight: 144 lb 13.5 oz (65.7 kg) BMI (Calculated): 24.2 Vital signs: Blood pressure 92/62, pulse 86, temperature 98.3 F (36.8 C), temperature source Temporal, resp. rate 16, height 5' 5" (1.651 m), weight 144 lb 13.5 oz [...] Acute Pain Service providers are available via [facility]. Please reference [employer] for Pain Management Provider SANITATION MANAGER and direct all questions to the [...] (36.8 C) (Temporal) Resp 16 Ht 5' 5" (1.651 m) Wt 144 lb 13.5 oz [...] - DVT PPx - D/w Dr. Scott, concert manager for Dr. Mckeon Disclaimers: INFORMED CONSENT: The [...] This note may have been dictated using [employer] Practice Edition 2.6 and/or [employer] Voice Recognition Feature. The document was proofread; however, unrecognized voice recognition plastics engineer errors may be present. Associated attestation - Luis M Scott MD - 11/08/2020 10:36 AM EDT I independently saw and evaluated the patient - including reviewing the labs, imaging studies, and available documentation. I agree with the findings and plan of care as documented by the resident/SOAKER SODA WORKER/BOAT FINISHER/PA, unless otherwise noted. Please do not hesitate [...] and examined at the bedside. Patient had "increasing heart rate" develop out of "no where" tonight. She states that she has no [...] RN - 11/07/2020 11:57 PM EDT Pts monitoring tech alarming with heart rate in the 170's. [...] be monitored and followed by the diet biomedical electronics technician. * Rajni Hwang MD - 11/07/2020 10:02 AM EDT Images from the original note were not included. Cardiothoracic Surgery Progress Note 11/07/2020 10:03 AM Subjective: Admit Date: 11/05/2020 PCP: DANIELLE PAIGE Interval History: 11/05 R thoracotomy, RUL resection, lymphadenectomy Subjective: No acute events overnight Pain controlled on UTILITY LINEMAN No nausea/vomiting, fevers, or chills Non-labored breathing on [address]: 200 cc over 24 h Objective: Vitals: Temp (24hrs), Av.7 F (37.1 C), Min:98 F (36.7 C), Max:99.9 F (37.7 C) BP 119/81 Pulse 107 Temp 99.9 F (37.7 C) (Temporal) Resp 18 Ht 5' 5" (1.651 m) Wt 144 lb 13.5 oz (65.7 kg) SpO2 95% BMI 24.10 kg/m I/O: Date 11/07/20 0000 - 11/07/20 2359 Shift 7985-9043 1491-6773 0444-3331 24 Hour Total INTAKE Shift Total(mL/kg) OUTPUT [...] chest tube - Gen diet - Gerardo duonebs, IS, acapella - Acute pain following, appreciate continued recs. Wean IV meds as able - Potential dc home tomorrow - D/w Dr. Scott, concert manager for Dr. Mckeon Disclaimers: INFORMED CONSENT: The [...] This note may have been dictated using [employer] Medical Practice Edition 2.6 and/or [employer] Voice Recognition Feature. The document was proofread; however, unrecognized voice recognition plastics engineer errors may be present. Associated attestation - Luis M Scott MD - 11/07/2020 10:33 AM EDT I independently saw and evaluated the patient - including reviewing the labs, imaging studies, and available documentation. I agree with the findings and plan of care as documented by the resident/SOAKER SODA WORKER/BOAT FINISHER/PA, unless otherwise noted. Please do not hesitate to contact me/us if you have any questions or concerns. Luis M Scott MD FACS * Grisel Garcia APRN - RUPINDER - 11/07/2020 9:30 AM EDT PAGING: The Acute Pain Service providers are available via [facility]. Please reference [employer] for Pain Management Provider SANITATION MANAGER and direct all questions to the provider listed. Due to the current environment of [place] [address], PPE was worn for the duration of [...] pain regimen, but would like to discontinue UTILITY LINEMAN today. Tolerating diet, denies n/v. Patient educated [...] Hcl 5 MG Tablet 60.00 8 Ra [facility] [id number] Rit (0102) 0 56.25 MME Objective Findings: Height: 5' 5" (165.1 cm) Weight: 144 lb 13.5 oz (65.7 kg) BMI (Calculated): 24.2 Vital signs: Blood pressure 119/81, pulse 107, temperature 99.9 F (37.7 C), temperature source Temporal, resp. rate 18, height 5' 5" (1.651 m), weight 144 lb 13.5 oz [...] lymphadenectomy on 11/05. PO regimen today Discontinue UTILITY LINEMAN, start PO regimen today, pt agreeable. Oxycodone [...] Acute Pain Service providers are available via [facility]. Please reference [employer] for Pain Management Provider SANITATION MANAGER and direct all questions to the provider listed. * Rajni Hwang MD - 11/06/2020 5:42 AM EDT Images from the original note were not included. Cardiothoracic Surgery Progress Note 11/06/2020 5:42 AM Subjective: Admit Date: 11/05/2020 PCP: DANIELLE PAIGE Interval History: 11/05 R thoracotomy, RUL resection, lymphadenectomy Subjective: No acute events overnight Pain controlled on UTILITY LINEMAN No nausea/vomiting, fevers, or chills Non-labored breathing on [address]: [address]: 50 cc Objective: Vitals: Temp (24hrs), Av.7 F (36.5 C), Min:97.5 F (36.4 C), Max:97.9 F (36.6 C) BP 109/67 Pulse 84 Temp 97.9 F (36.6 C) (Axillary) Resp 11 Ht 5' 5" (1.651 m) Wt 144 lb 13.5 oz (65.7 kg) SpO2 99% BMI 24.10 kg/m I/O: Date 11/06/20 0000 - 11/06/20 2359 Shift 6697-3363 9082-4766 9679-0165 24 Hour Total INTAKE P.O.(mL/kg/hr) 240 240 [...] HLIV - DC art line - Gerardo painting IS, acachayolla - Acute pain following, appreciate continued recs [...] This note may have been dictated using [employer] Medical Practice Edition 2.6 and/or [employer] Voice Recognition Feature. The document was proofread; however, unrecognized voice recognition plastics engineer errors may be present. Associated attestation - Rosemarie Mckeon MD - 11/06/2020 12:00 PM EDT I personally performed a face to face diagnostic evaluation on this patient. I agree with the findings and plan of care as documented by the resident/SOAKER SODA WORKER/BOAT FINISHER/PA, unless otherwise noted. Rosemarie Mckeon MD * Ila Flynn RN - 11/05/2020 7:18 PM EDT Chest xray at bedside * Ila Flynn RN - 11/05/2020 6:47 PM EDT Pt arrived to PACU from OR. Pt ID verified. Monitors applied with alarms on. Vital signs stable. documented in this [facility] Work Phone: [phone] 112-350504-23-2021 Hospital Discharge instructions* Instructions* Rajni Hwang MD - 11/06/2020 Images from the original note were not included. [facility]: Cardiothoracic Surgery [address] On license of [facility] (T): #[phone] (F): #[phone] After lung surgery, it is common to [...] or dog food bags, or a vacuum roller cleaner. If your incision is in the [...] start to have pain. Shoulder Stretch 1. volunteer services coordinator a doorway and place one arm against [...] Ifyou are prescribed oxycodone/acetaminophen (Percocet) or hydrocodone/acetaminophen (Barre/Vicodin) be cautious when taking additional tylenol. No [...] -Chest pain. -Abdominal distention. [facility] Work Phone: Consult note Author Alex [facility] Note Date/Time October 10, 2024 6:4 0am [facility] Medical Records Department [address] [place] [address] [place] [address] Pre-Anesthesia Evaluation 10/10/24 0633 MR#: [id number] Acct: [id number] Name: MARGIE FULTON Rep # :[id number] : 1940 84 From: Alex Rudolph MD PCP: Dr. Danielle Paige, DO Status:REG SDC Y Race: C Location: [place] [address] ASA Classification* ASA Classification ASA Classification: 2 [...] Procedure(s): EGD Anesthesia History Anesthesia History - script girl: Anesthesia History - script girl Hx Hospitalization No 10/08/24 11:46 Any Problems [...] sips of water?: Yes PONV PONV - script girl: PONV - script girl Female Yes 10/08/24 11:46 HX of Motion [...] 10/10/24 06:17 Respiratory Assessment Respiratory Assessment - script girl: Respiratory Tract Infection Hx - script girl Hx Respiratory Tract Infection No 10/08/24 11:46 Any additional information?: Yes Hx Respiratory Tract Infection: Yes (Patient has a chronic cough. Nothing acute.) STOP Sleep Apnea STOP Sleep Apnea - script girl: STOP Sleep Apnea - script girl Hx Hypertension No 10/08/24 11:46 Hx Sleep [...] Tobacco Use History Tobacco Use History - script girl: Tobacco Use History - script girl Tobacco Use Smoking Status Never smoker 10/08/24 11:46 Hx Tobacco Use No 10/08/24 11:46 Years Smoking Packs Smoked per Day Smoking Cessation Date was within the last 15 years Hx Smoking Cessation Date Hx Smoking Cessation Counseling Hematologic Medial History Hematologic Hx - script girl: Hematologic Medical Hx - orchid hand Hx of Blood Transfusion Yes 10/08/24 11:46 [...] confused, unrespo /Reproduction History /Reproductive History - script girl: /Reproductive Hx- script girl Hx Now Gestational Age (in weeks): EDC: [...] no additional complaints, except as documented. 10/10/24 06 <Electronically signed by Alex xie MD> Date _ Alex Rudolph MD Cosigner Signature: Date CC: ~ Signed [facility] Work Phone: Consult note Author AA Rocky Worthy [facility] Note Date/Time October 10, 2024 7:5 3am [facility] Medical Records Department [address] [place] [address] Anesthesia Postop Eval I 10/10/24751 MR#: [id number] Acct: [id number] Name: MARGIE FULTON Rep # :[id number] : 1940 84 From: Rocky Worthy PCP: Dr. Danielle Paige, DO Status:REG [facility] Race: C Location: [place] [address] Anesthesia: Postop Eval I Current Vital Signs [...] Postop Eval 1 completed: Yes 10/10/24 0753 <Electronically signed by Rocky Worthy > Date _ Rocky Alvarez Signature: Date CC: ~ Signed [facility] Work Phone: Consult note Author Duc Muir [facility] Note Date/Time December 02, 2024 1:25p m [facility] Medical Records Department [address] [place] [address] Anesthesia Postop Eval II 12/02/24 1147 MR#: [id number] Acct: [id number] Name: MARGIE FULTON Rep # :[id number] : 1940 84 From: Duc Muir MD PCP: Dr. Danielle Paige, DO Status:REG [facility] Race: C Location: [place] [address] Anesthesia Postop Eval I Sum Postop Eval Completion status Anesthesia document: Postop Eval 1 completed: Yes Anesthesia Postop Eval I Summary Anesthesia Postop Eval I Summary: Anesthesia Postop Eval I: Assessment Summary Airway patent Yes 12/02/24 11:03 ENGINEERING SPECIALIST TECHNICIAN.JDEF Spontaneous unlabored Yes 12/02/24 11:03 ENGINEERING SPECIALIST TECHNICIAN.JDEF respirations Mental status Awake 12/02/24 11:03 ENGINEERING SPECIALIST TECHNICIAN.JDEF nausea No 12/02/24 11:03 ENGINEERING SPECIALIST TECHNICIAN.JDEF Vomiting No 12/02/24 11:03 ENGINEERING SPECIALIST TECHNICIAN.JDEF Anesthesia Postop Eval I: Fluid Summary Crystalloid volume administer 1,100 12/02/24 11:03 ENGINEERING SPECIALIST TECHNICIAN.JDEF (ml) Colloids volume administered ( ml) Blood Product volume administered (ml) Total IV fluid infused 1,100 12/02/24 11:03 ENGINEERING SPECIALIST TECHNICIAN.JDEF Anesthesia Postop Eval I: Summary Notes Anesthesia Complication No 12/02/24 11:03 ENGINEERING SPECIALIST TECHNICIAN.JDEF Anesthesia Complication Comment: Post-operative progress note Anesthesia: Postop Eval II Evaluation Mental status: Awake Pain Level: 2 nausea: No Vomiting: No 12/02/24 1147 <Electronically signed by Duc Muir MD > Date _ Duc Alvarez Signature: Date CC: ~ Signed [facility] Work Phone: Evaluation note* Diagnosis Nodule of apex of right lung- Primary [facility] Work Phone: Evaluation noteNo assessment information available [facility] Work Phone: Evaluation note* Diagnosis Onset Date Resolution Status Asthma chronic [facility] Work Phone: Evaluation note* Diagnosis Onset Date Resolution Status Asthma chronic Asthma chronic [facility] Work Phone: Evaluation note* Diagnosis Onset Date Resolution Status Asthma chronic SOB (shortness of breath) ac [facility] Work Phone: Evaluation note* Diagnosis Onset Date Resolution Status SOB (shortness of breath) [facility] Work Phone: Evaluation note* Diagnosis Prophylactic antibiotic- Primary Encounter for long-term (current) use of antibiotics [facility] OAB (overactive bladder)- Primary Hypertonicity of bladder [facility] Aron Friend [facility] Note Date/Time October 10, 2024 7:0 9am [facility] Medical Records Department [address] [place] [address] History & Physical Exam 10/10/24 0707 MR#: [id number] Acct: [id number] Name: MARGIE FULTON Rep # :[id number] : 1940 84 From: Aron Frank DO PCP: Dr. Danielle Paige DO Status:REG SD Location: [place] [address]- HPI - General General Date of Admission: [...] and hoarseness - states laryngoscopy was negative [facility] lung CA - lobe ectomy October 2021 - no chemo or radiation - denies any kidney or cardiac issues - Colonoscopy 5 years ago was normal per patient - remains active - continues to drive - lives alone [facility] Medical History Wears glasses Post-menopausal Cancer Thyroid [...] applicable): CC: Dr. Danielle Paige DO; Aron Frank DO~ Signed [facility] Work Phone: Hospital Discharge instructionsAmbulatory Orders* 12 Lead EKG [[facility]] Location: None Selected [facility] Work Phone: Reason for referral (narrative)No reason for referral information [facility] Work Phone: Summary Purpose Family History [...] FoundDocuments on File Type Date Recorded Patient Signwriter Expl anation ACP-Advance Directive 11/02/2020 12:00 AM Latest Code Status on File Code Status Date Activated Date Inactivated Comments Full Code 11/05/2020 7:12 PM Full Code 11/05/2020 8:45 AM 11/05/2020 6:57 PM Advance Directive Response Recorded Date/ Time Living Will Yes December 06, 2014 8 :23pm Power of Rod Machine Operator Yes December 06, 2014 8:23pm Advance Directive Response Recorded Date/ Time Living Will Yes December 06, 2014 7 :23pm Power of Rod Machine Operator Yes December 06, 2014 7:23pm Advance Directive Response Recorded Date/ Time Living Will Yes December 06, 2014 8 :23pm Do you have a Healthcare Power of Rod Machine Operator? Yes December 06, 2014 8:23pm Advance Directive Response Recorded Date/ Time Living Will Yes December 06, 2014 8 :23pm Do you have a Healthcare Power of Rod Machine Operator? Yes December 06, 2014 8:23pm Living Will Yes October 08, 2024 11:46am Do you have a Healthcare Power of Rod Machine Operator? Yes October 08, 2024 11:46am Name of Medical Power of Rod Machine Operator DEQUAN MIMS October 08, 2024 11:46am Advance Directive Response Recorded Date/ Time Living Will Yes December 06, 2014 8 :23pm Do you have a Healthcare Power of Rod Machine Operator? Yes December 06, 2014 8:23pm Living Will Yes October 08, 2024 11:46am Do you have a Healthcare Power of Rod Machine Operator? Yes October 08, 2024 11:46am Name of Medical Power of Rod Machine Operator DEQUAN MIMS October 08, 2024 11:46am Do you have a Healthcare Power of Rod Machine Operator? Yes November 25, 2024 9:33am Advance Directive Response Recorded Date/ Time Living Will Yes December 06, 2014 8 :23pm Do you have a Healthcare Power of Rod Machine Operator? Yes December 06, 2014 8:23pm Living Will Yes October 08, 2024 11:46am Do you have a Healthcare Power of Rod Machine Operator? Yes October 08, 2024 11:46am Name of Medical Power of Rod Machine Operator DEQUAN MIMS October 08, 2024 11:46am Do you have a Healthcare Power of Rod Machine Operator? Yes November 25, 2024 9:33am Do you have a Healthcare Power of Rod Machine Operator? Yes December 18, 2024 1:18am Advance Directive Response Recorded Date/ Time Living Will Yes December 06, 2014 8 :23pm Do you have a Healthcare Power of Rod Machine Operator? Yes December 06, 2014 8:23pm Living Will Yes October 08, 2024 11:46am Do you have a Healthcare Power of Rod Machine Operator? Yes October 08, 2024 11:46am Name of Medical Power of Rod Machine Operator DEQUAN MIMS October 08, 2024 11:46am Do you have a Healthcare Power of Rod Machine Operator? Yes November 25, 2024 9:33am Do you have a Healthcare Power of Rod Machine Operator? Yes December 17, 2024 8:52pm Chief Complaint Chief Complaint Description Start Date [...] Admit Date Gastroesophageal reflux disease (GERD) F [facility] 2024 1:07pm 6 M FU September 05, 2024 8:01am DYSPAGIA September 24, 2024 12: 56pm DYSPHAGIA September 27, 2024 7:4 0am Reason for Visit Admit Date Cough August 27, 2024 1:07pm Dysphagia August 27, 2024 1:07pm Elevated alkaline phosphatase level [facility] 2024 1:07pm Elevated AST (SGOT) August 27, 2024 1:07pm Weight loss August 27, 2024 1:07pm Gastroesophageal reflux disease August 27, 2024 1:07pm Asthma September 05, 2024 8:01am Chief Complaint Admit Date Gastroesophageal reflux disease (GERD) F [facility] 2024 1:07pm 6 M FU September 05, 2024 8:01am DYSPAGIA September 24, 2024 12: 56pm DYSPHAGIA September 27, 2024 7:4 0am Abnormal levels of other serum enzymes [facility] 2024 9:21am Reason for Visit Admit Date Cough August 27, 2024 1:07pm Dysphagia August 27, 2024 1:07pm Elevated alkaline phosphatase level [facility] 2024 1:07pm Elevated AST (SGOT) August 27, [...] Admit Date Gastroesophageal reflux disease (GERD) F [facility] 2024 1:07pm 6 M FU September 05, [...] after procedure December 12, 2024 10 :52am Chief Complaint Admit Date Gastroesophageal reflux disease (GERD) F ebruary 2024 1:07pm 6 M FU September 05, 2024 8:01am DYSPAGIA September 24, 2024 12: 56pm DYSPHAGIA September 27, 2024 7:4 0am Abnormal levels of other serum enzymes M 2024 9:21am ABNORMAL ABD US October 15, [...] LUISA DOS 12/02December 16, 2024 8:29a m INTRACTABLE N/V, UTI, CONSTIPATION December 17, 2024 10:48pm INTRACTABLE N/V, UTI, CONSTIPATION December 18, 2024 3:45pm Reason for Visit Admit Date Cough August [...] after procedure December 12, 2024 10 :52am S/P cholecystectomy December 16, 2024 8:29a m Nausea and vomiting December 17, 2024 10:48 pm UTI (urinary tract infection) December 17, 2024 10:48pm Chief Complaint Admit Date 6 M FU September 05, 2024 8:01am DYSPAGIA September 24, 2024 12: 56pm DYSPHAGIA September 27, 2024 7:4 0am Abnormal levels of other serum enzymes M 2024 9:21am ABNORMAL ABD US October 15, [...] LUISA DOS 12/02December 16, 2024 8:29a m INTRACTABLE N/V, UTI, CONSTIPATION December 17, 2024 10:48pm INTRACTABLE N/V, UTI, CONSTIPATION December 18, 2024 3:45pm INTRACTABLE N/V, UTI, CONSTIPATION December 19, 2024 12:07pm STOOL BURDEN December 23, 2024 3:57p m Reason for Visit Admit Date Asthma September 05, 2024 8:01am Cough October [...] (ultrasound) of abdomen December 02, 2024 8:00am Seroma after procedure December 12, 2024 10 :52am Nausea and vomiting December 12, 2024 10:52 am S/P cholecystectomy December 16, 2024 8:29a m Nausea and vomiting December 17, 2024 10:48 pm UTI (urinary tract infection) December 17, 2024 10:48pm Chief Complaint Admit Date Gastroesophageal reflux disease [...] LUISA DOS 12/02December 16, 2024 8:29a m INTRACTABLE N/V, UTI, CONSTIPATION December 17, 2024 10:48pm Reason for Visit Admit Date Cough August [...] after procedure December 12, 2024 10 :52am S/P cholecystectomy December 16, 2024 8:29a m UTI (urinary tract infection) December 17, 2024 10:48pm Chief Complaint Admit Date 6 M FU September 05, 2024 8:01am DYSPAGIA September 24, 2024 12: 56pm DYSPHAGIA September 27, 2024 7:4 0am Abnormal levels of other serum enzymes [facility] 2024 9:21am ABNORMAL ABD US October [...] LUISA DOS 12/02December 16, 2024 8:29a m INTRACTABLE N/V, UTI, CONSTIPATION December 17, 2024 10:48pm INTRACTABLE N/V, UTI, CONSTIPATION December 18, 2024 3:45pm INTRACTABLE N/V, UTI, CONSTIPATION December 19, 2024 12:07pm STOOL BURDEN December 23, 2024 3:57p m PAIN AFTER GALLBLADDER SURGERY December 8:30am Reason for Visit Admit Date Asthma September 05, 2024 8:01am Cough October [...] (ultrasound) of abdomen December 02, 2024 8:00am Seroma after procedure December 12, 2024 10 :52am Nausea and vomiting December 12, 2024 10:52 am S/P cholecystectomy December 16, 2024 8:29a m Nausea and vomiting December 17, 2024 10:48 pm UTI (urinary tract infection) December 17, 2024 10:48pm Bloating January 01, 2025 8:30 am Epigastric pain January 01, 2025 8:30 am Nausea January 01, 2025 8:30 am Chief Complaint Admit Date DYSPAGIA September 24, 2024 12: 56pm DYSPHAGIA [...] LUISA DOS 12/02December 16, 2024 8:29a m INTRACTABLE N/V, UTI, CONSTIPATION December 17, 2024 10:48pm INTRACTABLE N/V, UTI, CONSTIPATION December 18, 2024 3:45pm INTRACTABLE N/V, UTI, CONSTIPATION December 19, 2024 12:07pm STOOL BURDEN December 23, 2024 3:57p m PAIN AFTER GALLBLADDER SURGERY December 8:30am E-ORDER January 01, 2025 9:04 am Reason for Visit Admit Date Cough October 10, 2024 5:5 0am Dysphagia [...] (ultrasound) of abdomen December 02, 2024 8:00am Seroma after procedure December 12, 2024 10 :52am Nausea and vomiting December 12, 2024 10:52 am S/P cholecystectomy December 16, 2024 8:29a m Nausea and vomiting December 17, 2024 10:48 pm UTI (urinary tract infection) December 17, 2024 10:48pm Bloating January 01, 2025 8:30 am Epigastric pain January 01, 2025 8:30 am Fatigue January 01, 2025 8:30 am Nausea January 01, 2025 8:30 am Chief Complaint Admit Date DYSPAGIA September 24, 2024 12: 56pm DYSPHAGIA September 27, 2024 7:4 0am Abnormal levels of other serum enzymes 2024 9:21am ABNORMAL ABD US October 15, [...] LUISA DOS 12/02December 16, 2024 8:29a m INTRACTABLE N/V, UTI, CONSTIPATION December 17, 2024 10:48pm INTRACTABLE N/V, UTI, CONSTIPATION December 18, 2024 3:45pm INTRACTABLE N/V, UTI, CONSTIPATION December 19, 2024 12:07pm STOOL BURDEN December 23, 2024 3:57p m PAIN AFTER GALLBLADDER SURGERY December 8:30am E-ORDER January 01, 2025 9:04 am Upper GI Pain January 09, 2025 1:53 pm Reason for Visit Admit Date Cough October 10, 2024 5:5 0am Dysphagia [...] (ultrasound) of abdomen December 02, 2024 8:00am Seroma after procedure December 12, 2024 10 :52am Nausea and vomiting December 12, 2024 10:52 am S/P cholecystectomy December 16, 2024 8:29a m Nausea and vomiting December 17, 2024 10:48 pm UTI (urinary tract infection) December 17, 2024 10:48pm Bloating January 01, 2025 8:30 am Epigastric pain January 01, 2025 8:30 am Fatigue January 01, 2025 8:30 am Nausea January 01, 2025 8:30 am Chest pain January 09, 2025 1:53 pm SOB (shortness of breath) January 09 1:53pm Tachycardia January 09, 2025 1:53 pm Chief Complaint Admit Date DYSPHAGIA September 27, 2024 7:4 0am Abnormal levels of other serum enzymes M 2024 9:21am ABNORMAL ABD US October 15, [...] LUISA DOS 12/02December 16, 2024 8:29a m INTRACTABLE N/V, UTI, CONSTIPATION December 17, 2024 10:48pm INTRACTABLE N/V, UTI, CONSTIPATION December 18, 2024 3:45pm INTRACTABLE N/V, UTI, CONSTIPATION December 19, 2024 12:07pm STOOL BURDEN December 23, 2024 3:57p m PAIN AFTER GALLBLADDER SURGERY December 8:30am E-ORDER January 01, 2025 9:04 am Upper GI Pain January 09, 2025 1:53 pm 5 M FU January 23, 2025 8:16 am Reason for Visit Admit Date Cough October 10, 2024 5:5 0am Dysphagia October 10, 2024 5:5 0am Abdominal pain October 17, 2024 12:4 9pm Abnormal US (ultrasound) of abdomen [facility] 2024 12:49pm Bloating October 17, 2024 12:4 9pm Elevated alkaline phosphatase level [facility] 2024 12:49pm Personal history of lung cancer October 12:49pm Weight loss October 17, 2024 12:4 9pm Abnormal US (ultrasound) of abdomen [facility] 2024 8:54am Elevated CEA November 12, 2024 8:5 4am Epigastric pain November 12, 2024 8:5 4am Nausea November 12, 2024 8:5 4am Weight loss November 12, 2024 8:5 4am Gallbladder polyp November 18, 2024 8:55am Abdominal pain December 02, 2024 8:00a m Abnormal US (ultrasound) of abdomen December 02, 2024 8:00am Seroma after procedure December 12, 2024 10 :52am Nausea and vomiting December 12, 2024 10:52 am S/P cholecystectomy December 16, 2024 8:29a m Nausea and vomiting December 17, 2024 10:48 pm UTI (urinary tract infection) December 17, 2024 10:48pm Bloating January 01, 2025 8:30 am Epigastric pain January 01, 2025 8:30 am Fatigue Leticia 18th, 2025 8:30 am Nausea January 01, 2025 8:30 am Chest pain January 09, 2025 1:53 pm Coronary artery calcification seen on CA T scan January 09, 2025 1:53pm Tachycardia January 09, 2025 1:53 pm Asthma January 23, 2025 8:16 am Reason for Referral Specialty Diagnoses / Procedures Referred By Deep velasquez Referred To Contact [facility] Vini Maurer MD [address] [facility] [address] [place] [address] [facility] [address] [place] [address] Referral ID Status Reason Start Date Expiration Date Visits Re quested Visits Authorized [id number] Closed 04/11/2024 07/10/2024 1 1 Additional Source Comments INFORMATION SOURCE (unrecogn ized section and content) DATE CREATED AUTHOR 03/28/2019 [facility] DATE CREATED AUTHOR AUTHOR'S ORGANIZ ATION 01/31/2020 [facility] DATE CREATED AUTHOR AUTHOR'S ORGANIZ ATION 08/28/2020 [facility] DATE CREATED AUTHOR AUTHOR'S ORGANIZ ATION 12/11/2020 [facility] DATE CREATED AUTHOR AUTHOR'S ORGANIZ ATION 06/28/2022 [facility] DATE CREATED AUTHOR AUTHOR'S ORGANIZ ATION 03/29/2024 [facility] DATE CREATED AUTHOR AUTHOR'S ORGANIZ ATION 02/01/2025 [facility] Reason for Visit (unrecogniz ed section [...] Botox Specialty Diagnoses / Procedures Referred By Deep velasquez Referred To Contact [facility] Diagnoses OAB (overactive bladder) Procedures BOTULINUM TOXIN A PER 1 UNIT CYSTOURETHROSCOPY INJ CHEMODENERVATION BLADDER Vini Maurer MD [address] [facility] [address] [place] [address] [employer] [facility] [address] [place] [address] Referral ID Status Reason Start Date Expiration Date V isits Requested Visits Authorized [id number] Authorized 02/21/2024 02/20/2025 99 99 Ordered Prescriptions [...] Member Role Status Dates Dr. Danielle Paige , DO Family Provider Active Dr. Danielle Paige , DO Primary Care Provider Active Team Status: Inactive Member Role Status Dates Dr. Danielle Paige , DO Primary Care Provider, Referring P mike Active Abril Connors BOAT FINISHER, BOAT FINISHER-C Attending Provider Active Team Status: Inactive Member [...] DO Primary Care Provider Active Tory Hatfield BOAT FINISHER, BOAT FINISHER-C Attending Provider Active Team Status: Active Member Role Status Dates Dr. Danielle Paige DO Primary Care Provider Active Dr. Melvin Mcclelland MD Attending Provider, Referring Provider, Other Provider Active [employer] Drafter Relationship Specialty Start Date End Date Danielle Paige DO [address] [place] [address] PCP - General Family Medicine 03/28/19 [employer] Relationship Specialty Start Date End Date Danielle Paige DO [address] [place] [address] PCP - General Family Medicine 03/28/19 [employer]fter Relationship Specialty Start Date End Date Danielle Paige DO [address] [place], [place] [id number] PCP - General Family Medicine 03/28/19 Team [...] August 27, 2024 End: August 27, 2024 LYNETTE MantillaC Attending Provider Active Start: August 27, 2024 End: August 27, 2024 Team Status: Inactive Member Role Status Dates Dr. Danielle Paige DO Primary Care Provider Active Start: September 05, 2024 End: September 05, 2024 Dr. Danielle Paige DO Referring Provider Active St art: September 05, 2024 End: September 05, 2024 Abril Connors NP BOAT FINISHER-C Attending Provider Active Start: September 05, 2024 [...] Care Provider Active Start: September 24, 2024 Savanna Kalin , BOAT FINISHER-C Attending Provider Active Start: September 24, 2024 Savanna Kalin , BOAT FINISHER-C Referring Provider Active Start: September 24, 2024 Team Status: Active Member Role Status Dates Dr. Danielle Paige DO Primary Care Provider Active Start: September 27, 2024 Savanna Kalin , BOAT FINISHER-C Attending Provider Active Start: September 27, 2024 Savanna Kalin , BOAT FINISHER-C Referring Provider Active Start: September 27, 2024 Team Status: Inactive Member Role Status Dates Dr. Danielle Paige DO Primary Care Provider Active Start: September 24, 2024 End: September 24, 2024 Savanna Kalin , BOAT FINISHER-C Attending Provider Active Start: September 24, 2024 End: September 24, 2024 Savanna Kalin , BOAT FINISHER-C Referring Provider Active Start: September 24, 2024 End: September 24, 2024 Team Status: Inactive Member Role Status Dates Dr. Danielle Paige DO Primary Care Provider Active Start: September 27, 2024 End: September 27, 2024 Savanna Kalin , BOAT FINISHER-C Attending Provider Active Start: September 27, 2024 End: September 27, 2024 Savanna Kalin , BOAT FINISHER-C Referring Provider Active Start: September 27, 2024 End: September 27, 2024 Team Status: Active Member Role Status Dates Dr. Danielle Paige DO Primary Care Provider Active Start: October 08, 2024 Savanna Kalin , BOAT FINISHER-C Attending Provider Active Start: October 08, 2024 Savanna Kalin , BOAT FINISHER-C Referring Provider Active Start: October 08, 2024 Team Status: Inactive Member Role Status Dates Dr. Danielle Paige DO Primary Care Provider Active Start: October 10, 2024 End: October 10, 2024 Dr. Danielle Paige DO Referring Provider Active St art: October 10, 2024 End: October 10, 2024 Dr. Aron rFank DO Attending Provider Active Start: October 10, [...] 08, 2024 End: October 08, 2024 Savanna Gagnon , BOAT FINISHER-C Attending Provider Active Start: October 08, 2024 End: October 08, 2024 Savanna Kalin , BOAT FINISHER-C Referring Provider Active Start: October 08, 2024 End: October 08, 2024 Team Status: Active Member Role Status Dates Dr. Danielle Paige DO Primary Care Provider Active Start: October 15, 2024 Savannacayetano Gagnon , BOAT FINISHER-C Attending Provider Active Start: October 15, 2024 Savanna Gagnon , BOAT FINISHER-C Referring Provider Active Start: October 15, 2024 Team Status: Inactive Member Role Status Dates Dr. Danielle Paige DO Primary Care Provider Active Start: October 17, 2024 End: October 17, 2024 Dr. Danielle Paige DO Referring Provider Active St art: October 17, 2024 End: October 17, 2024 Savanna Gagnon , BOAT FINISHER-C Attending Provider Active Start: October 17, 2024 End: October 17, 2024 Team Status: Active Member Role Status Dates Dr. Danielle Paige DO Primary Care Provider Active Start: October 17, 2024 Savanna Gagnon , BOAT FINISHER-C Attending Provider Active Start: October 17, 2024 Savannamat Gagnon , BOAT FINISHER-C Referring Provider Active Start: October 17, 2024 [...] 15, 2024 End: October 15, 2024 Savanna Gagnon , BOAT FINISHER-C Attending Provider Active Start: October 15, 2024 End: October 15, 2024 Savanna Gagnon , BOAT FINISHER-C Referring Provider Active Start: October 15, 2024 End: October 15, 2024 Team Status: Inactive Member Role Status Dates Dr. Danielle Paige DO Primary Care Provider Active Start: October 17, 2024 End: October 17, 2024 Savanna Gagnon , BOAT FINISHER-C Attending Provider Active Start: October 17, 2024 End: October 17, 2024 Savannamat Gagnon , BOAT FINISHER-C Referring Provider Active Start: October 17, 2024 End: October 17, 2024 Team Status: Inactive Member Role Status Dates Dr. Danielle Paige DO Primary Care Provider Active Start: November 11, 2024 End: November 11, 2024 Savanna Gagnon , BOAT FINISHER-C Attending Provider Active Start: November 11, 2024 End: November 11, 2024 Savanna Gagnon , BOAT FINISHER-C Referring Provider Active Start: November 11, 2024 End: November 11, 2024 Team Status: Inactive Member Role Status Dates Dr. Danielle Paige DO Primary Care Provider Active Start: November 12, 2024 End: November 12, 2024 Dr. Danielle Paige DO Referring Provider Active St art: November 12, 2024 End: November 12, 2024 Savanna Gagnon , BOAT FINISHER-C Attending Provider Active Start: November 12, 2024 [...] December 16, 2024 End: December 16, 2024 Team Status: Inactive Member Role Status Dates Dr. Danielle Paige DO Primary Care Provider Active Start: December 17, 2024 End: December 19, 2024 Dr. Albert Julian DO Emergency Provider Activ e Start: December 17, 2024 End: December 19, 2024 Dr. Ale Newton MD Admit Provider Active St art: December 17, 2024 End: December 19, 2024 Dr. Ale Newton MD Other Provider Active St art: December 17, 2024 End: December 19, 2024 Dr. Berkley Shukla MD Attending Provider Active Start: December 17, 2024 End: December 19, 2024 Team Status: Active Member Role Status Dates Dr. Danielle Paige DO Primary Care Provider Active Start: December 18, 2024 Dr. Albert Julian DO Emergency Provider Activ e Start: December 18, 2024 Dr. Ale Newton MD Admit Provider Active St art: December 18, 2024 Dr. Ale Newton MD Other Provider Active St art: December 18, 2024 Dr. Berkley Shukla MD Attending Provider Active Start: December 18, 2024 Dr. Berkley Shukla MD Other Provider Active St art: December 18, 2024 Team Status: Active Member Role Status Dates Dr. Danielle Paige DO Primary Care Provider Active Start: December 19, 2024 Dr. Albert Julian DO Emergency Provider Activ e Start: December 19, 2024 Dr. Ale Newton MD Admit Provider Active St art: December 19, 2024 Dr. Ale Newton MD Other Provider Active St art: December 19, 2024 Dr. Berkley Shukla MD Attending Provider Active Start: December 19, 2024 Dr. Berkley Shukla MD Other Provider Active St art: December 19, 2024 Team Status: Inactive Member Role Status Dates Dr. Danielle Paige DO Primary Care Provider Active Start: December 23, 2024 End: December 23, 2024 ZACKARY Hatfield Attending Provider Active St art: December 23, 2024 End: December 23, 2024 ZACKARY Hatfield Referring Provider Active St art: December 23, 2024 End: December 23, 2024 Team Status: Active Member Role Status Dates Dr. Danielle Paige DO Primary Care Provider Active Start: December 17, 2024 Dr. Albert Julian DO Emergency Provider Activ e Start: December 17, 2024 Dr. Ale Newton MD Admit Provider Active St art: December 17, 2024 Dr. Ale Newton MD Attending Provider Active Start: December 17, 2024 Dr. Ale Newton MD Other Provider Active St art: December 17, 2024 Team Status: Inactive Member Role Status Dates Dr. Danielle Paige DO Primary Care Provider Active Start: January 01, 2025 End: January 01, 2025 Dr. Danielle Paige DO Referring Provider Active St art: January 01, 2025 End: January 01, 2025 ZACKARY Mantilla Attending Provider Active Start: January 01, 2025 End: January 01, 2025 Team Status: Inactive Member Role Status Dates Dr. Danielle Paige DO Primary Care Provider Active Start: January 01, 2025 End: January 01, 2025 Savanna Kalin , BOAT FINISHER-C Attending Provider Active Start: January 01, 2025 End: January 01, 2025 Savanna Gagnon NP-C Referring Provider Active Start: January 01, 2025 End: January 01, 2025 Team Status: Inactive Member Role Status Dates Dr. Danielle Paige DO Primary Care Provider Active Start: January 09, 2025 End: January 09, 2025 Dr. Danielle Paige DO Referring Provider Active St art: January 09, 2025 End: January 09, 2025 Ny Lott PA, [place] Attending Provider Active Start: January 09, 2025 End: January 09, 2025 Team Status: Active Member Role/Relationship Status Dates Dr. Danielle Paige DO Primary Care Provider Active Team Status: Inactive Member Role/Relationship Status Dates Dr. Danielle Paige DO Primary Care Provider Active Start: September 27, 2024 End: September 27, 2024 Savanna Gagnon BOAT FINISHER-C Attending Provider Active Start: September 27, 2024 End: September 27, 2024 Savanna Gagnon BOAT FINISHER-C Referring Provider Active Start: September 27, 2024 End: September 27, 2024 Team Status: Inactive Member Role/Relationship Status Dates Dr. Danielle Paige DO Primary Care Provider Active Start: October 08, 2024 End: October 08, 2024 Savanna Gagnon BOAT FINISHER-C Attending Provider Active Start: October 08, 2024 End: October 08, 2024 Savanna Gagnon BOAT FINISHER-C Referring Provider Active Start: October 08, 2024 End: October 08, 2024 Team Status: Inactive Member Role/Relationship Status Dates Dr. Danielle Paige DO Primary Care Provider Active Start: October 10, 2024 End: October 10, 2024 Dr. Danielle Paige DO Referring Provider Active St art: October 10, 2024 End: October 10, 2024 Dr. Aron Frank DO Attending Provider Active Start: October 10, 2024 End: October 10, 2024 Team Status: Active Member Role/Relationship Status Dates Dr. Danielle Paige DO Primary Care Provider Active Start: October 10, 2024 Dr. Danielle Paige DO Referring Provider Active St art: October 10, 2024 Dr. Aron Frank DO Attending Provider Active Start: October 10, 2024 Dr. Aron Frank , Other Provider Active St art: October 10, 2024 Team Status: Inactive Member Role/Relationship Status Dates Dr. Danielle Paige DO Primary Care Provider Active Start: October 15, 2024 End: October 15, 2024 Savanna Gagnon BOAT FINISHER-C Attending Provider Active Start: October 15, 2024 End: October 15, 2024 Savanna Gagnon , BOAT FINISHER-C Referring Provider Active Start: October 15, 2024 End: October 15, 2024 Team Status: Inactive Member Role/Relationship Status Dates Dr. Danielle Paige DO Primary Care Provider Active Start: October 17, 2024 End: October 17, 2024 Dr. Danielle Paige DO Referring Provider Active St art: October 17, 2024 End: October 17, 2024 Savanna Gagnon , BOAT FINISHER-C Attending Provider Active Start: October 17, 2024 End: October 17, 2024 Team Status: Inactive Member Role/Relationship Status Dates Dr. Danielle Paige DO Primary Care Provider Active Start: October 17, 2024 End: October 17, 2024 Savanna Gagnon , BOAT FINISHER-C Attending Provider Active Start: October 17, 2024 End: October 17, 2024 Savanna Gagnon , BOAT FINISHER-C Referring Provider Active Start: October 17, 2024 End: October 17, 2024 Team Status: Inactive Member Role/Relationship Status Dates Dr. Danielle Paige DO Primary Care Provider Active Start: October 18, 2024 End: October 18, 2024 Dr. Danielle Paige DO Attending Provider Active St art: October 18, 2024 End: October 18, 2024 Dr. Danielle Paige DO Referring Provider Active St art: October 18, 2024 End: October 18, 2024 Team Status: Inactive Member Role/Relationship Status Dates Dr. Danielle Paige DO Primary Care Provider Active Start: November 11, 2024 End: November 11, 2024 Savanna Gagnon , BOAT FINISHER-C Attending Provider Active Start: November 11, 2024 End: November 11, 2024 Savanna Gagnon , BOAT FINISHER-C Referring Provider Active Start: November 11, 2024 End: November 11, 2024 Team Status: Inactive Member Role/Relationship Status Dates Dr. Danielle Paige DO Primary Care Provider Active Start: November 12, 2024 End: November 12, 2024 Dr. Danielle Paige DO Referring Provider Active St art: November 12, 2024 End: November 12, 2024 ZACKARY Mantilla Attending Provider Active Start: November 12, 2024 End: November 12, 2024 Team Status: Inactive Member Role/Relationship Status Dates Dr. Danielle Paige DO Primary Care Provider Active Start: November 18, 2024 End: November 18, 2024 Dr. Danielle Paige DO Referring Provider Active St art: November 18, 2024 End: November 18, 2024 Dr. Carlos Cano MD Attending Provider Active Start: November 18, 2024 End: November 18, 2024 Team Status: Inactive Member Role/Relationship Status Dates Dr. Danielle Paige DO Primary Care Provider Active Start: December 02, 2024 End: December 02, 2024 Dr. Carlos Cano MD Attending Provider Active Start: December 02, 2024 End: December 02, 2024 Dr. Carlos Cano MD Referring Provider Active Start: December 02, 2024 End: December 02, 2024 Team Status: Active Member Role/Relationship Status Dates Dr. Danielle Paige DO Primary Care Provider Active Start: December 02, 2024 Dr. Carlos Cano MD Attending Provider Active Start: December 02, 2024 Dr. Carlos Cano MD Referring Provider Active Start: December 02, 2024 Dr. Carlos Cano MD Other Provider Active St art: December 02, 2024 Team Status: Inactive Member Role/Relationship Status Dates Dr. Danielle Paige DO Primary Care Provider Active Start: December 12, 2024 End: December 12, 2024 Dr. Danielle Paige DO Referring Provider Active St art: December 12, 2024 End: December 12, 2024 ZACKARY Mantilla Attending Provider Active Start: December 12, 2024 End: December 12, 2024 Team Status: Inactive Member Role/Relationship Status Dates Dr. Danielle Paige DO Primary Care Provider Active Start: December 16, 2024 End: December 16, 2024 Dr. Danielle Paige DO Referring Provider Active St art: December 16, 2024 End: December 16, 2024 Dr. Carlos Cano MD Attending Provider Active Start: December 16, 2024 End: December 16, 2024 Team Status: Inactive Member Role/Relationship Status Dates Dr. Danielle Paige DO Primary Care Provider Active Start: December 17, 2024 End: December 19, 2024 Dr. Albert Julian DO Emergency Provider Activ e Start: December 17, 2024 End: December 19, 2024 Dr. Ale Newton MD Admit Provider Active St art: December 17, 2024 End: December 19, 2024 Dr. Ale Newton MD Other Provider Active St art: December 17, 2024 End: December 19, 2024 Dr. Berkley Shukla MD Attending Provider Active Start: December 17, 2024 End: December 19, 2024 Team Status: Active Member Role/Relationship Status Dates Dr. Danielle Paige DO Primary Care Provider Active Start: December 18, 2024 Dr. Albert Julian DO Emergency Provider Activ e Start: December 18, 2024 Dr. Ale Newton MD Admit Provider Active St art: December 18, 2024 Dr. Ale Newton MD Other Provider Active St art: December 18, 2024 Dr. Berkley Shukla MD Attending Provider Active Start: December 18, 2024 Dr. Berkley Shukla MD Other Provider Active St art: December 18, 2024 Team Status: Active Member Role/Relationship Status Dates Dr. Danielle Paige DO Primary Care Provider Active Start: December 19, 2024 Dr. Albert Julian DO Emergency Provider Activ e Start: December 19, 2024 Dr. Ale Newton MD Admit Provider Active St art: December 19, 2024 Dr. Ale Newton MD Other Provider Active St art: December 19, 2024 Dr. Berkley Shukla MD Attending Provider Active Start: December 19, 2024 Dr. Berkley Shukla MD Other Provider Active St art: December 19, 2024 Team Status: Inactive Member Role/Relationship Status Dates Dr. Danielle Paige DO Primary Care Provider Active Start: December 23, 2024 End: December 23, 2024 ZACKARY Hatfield Attending Provider Active St art: December 23, 2024 End: December 23, 2024 ZACKARY Hatfield Referring Provider Active St art: December 23, 2024 End: December 23, 2024 Team Status: Inactive Member Role/Relationship Status Dates Dr. Danielle Paige DO Primary Care Provider Active Start: January 01, 2025 End: January 01, 2025 Dr. Danielle Paige DO Referring Provider Active St art: January 01, 2025 End: January 01, 2025 ZACKARY Mantilla Attending Provider Active Start: January 01, 2025 End: January 01, 2025 Team Status: Inactive Member Role/Relationship Status Dates Dr. Danielle Paige DO Primary Care Provider Active Start: January 01, 2025 End: January 01, 2025 ZACKARY Mantilla Attending Provider Active Start: January 01, 2025 End: January 01, 2025 ZACKARY Mantilla Referring Provider Active Start: January 01, 2025 End: January 01, 2025 Team Status: Inactive Member Role/Relationship Status Dates Dr. Danielle Paige DO Primary Care Provider Active Start: January 09, 2025 End: January 09, 2025 Dr. Danielle Paige DO Referring Provider Active St art: January 09, 2025 End: January 09, 2025 Ny BURNS, [place] Attending Provider Active Start: January 09, 2025 End: January 09, 2025 Team Status: Inactive Member Role/Relationship Status Dates Dr. Danielle Paige DO Primary Care Provider Active Start: January 23, 2025 End: January 23, 2025 Dr. Danielle Paige DO Referring Provider Active St art: January 23, 2025 End: January 23, 2025 LYNETTE Valenzuela NPC Attending Provider Active Start: January 23, 2025 End: January 23, 2025 Source Comments (unrecognize d section and content) In the event this informatio n is protected by the Federal Confidentiality of Alcohol and Drug Abuse Patient Records regulations: The Federal rules restrict any use of the information to criminally investigate or prosecute any alcohol or drug abuse patient.[facility] the event this information is protected by the Federal Confidentiality of Alcohol and Drug Abuse Patient Records regulations: The Federal rules restrict any use of the information to criminally investigate or prosecute any alcohol or drug abuse patient.[facility] the event this information is protected by the Federal Confidentiality of Alcohol and Drug Abuse Patient Records regulations: The Federal rules restrict any use of the information to criminally investigate or prosecute any alcohol or drug abuse patient.[facility] FOR RECORDS PERTAINING TO PATIENTS WHO [...] BE BASED ON THE PRIMARY CLINICAL RECORDS. [facility] [email or web address] [facility]. provides no warranty or guarantee of the accuracy or completeness of information in this document.
--- NOTE | 2025-02-05 17:47 | STRESSREP ---
Stress Test Report Exercise myocardial perfusion stress test. 84-year-old lady with a history of chest pain Stress protocol: Resting EKG demonstrates normal sinus rhythm with a rate of 67 bpm resting blood pressure is 130/72 mmHg. The patient exercised according to the regular Chinedu protocol for a total duration of 3 minutes and 46 seconds attaining a maximum heart rate of 146 bpm which was 105% of maximum predicted heart rate; the maximum workload was 6.4 metabolic equivalents. At rest there were no ST or T wave changes noted to suggest ischemia and at peak exercise upsloping ST changes only were noted which did not meet the criteria for ischemia. No clinical angina was noted the test was terminated due to the target heart rate being achieved/fatigue. The peak blood pressure was 152/80 mmHg. Rate-pressure product was 18,400. Myocardial perfusion protocol. 11 point mCi of technetium 99m sestamibi was injected at rest. The patient exercised according to regular Chinedu protocol for total duration of 3 minutes and 46 and at peak exercise 33.1 mCi of technetium 99m sestamibi was injected stress images were obtained stress and rest images were reconstructed in comparing the short axis vertical long and horizontal long axis. Gated images were also obtained. Perfusion SPECT analysis: Review of the stress images demonstrate normal uptake of tracer noted in all areas of the myocardium. The resting images similarly demonstrate normal uptake of tracer noted in all areas of the myocardium. No areas of reversibility are noted to suggest ischemia no previous infarct was noted. Gated SPECT analysis: The gated ejection fraction is 63%. Conclusion: Normal exercise myocardial perfusion stress test at a moderate workload Preserved ejection fraction.
== END | disposition home or self-care (01) ==
LOC: CVS 06:15
PROVIDERS: PCP Family Medicine; Referring Provider Physician Assistant Medical; Visit Provider Physician Assistant Medical
DX: R07.9 Chest pain, unspecified (principal)
CPT/HCPCS: 78452; 93017; A9500; A4216

== ENCOUNTER → 2025-04-11 | Outpatient (CLI) | payer MEDICARE, OTHER, SELFPAY ==
--- NOTE | 2025-04-11 07:41 | NM_ITS ---
PROCEDURE: GASTRIC EMPTYING STUDY - 4 HR 04/11/2025 REASON FOR EXAM: NAUSEA, ABDOMINAL PAIN, EARLY SATIETY COMPARISON: None. TECHNIQUE: Procedure Code: [id number] Modality: NM Procedure: GASTRIC EMPTYING STUDY - 4 HR The patient ingested a standard solid meal of 2 eggs, 2 slices of bread, to pats of butter, and 6 oz of water. There was no vomiting postprandially. Anterior and posterior planar images of the upper abdomen were obtained for 1 minute immediately following the meal at 1h, 2h and 4h if more than 10% of the activity persisted within the stomach. Regions of interest were drawn, and a geometric mean was used to calculate a vian-yopoaxdy-nttmg. Medications taken in the past 24 hours that may affect gastric emptying: None RADIOPHARMACEUTICAL: Technetium 99 M sulfur colloid DOSE 1.1mCi orally with the solid meal. FINDINGS: During the time of imaging, gastroesophageal reflux was not identified. Linear fit gastric emptying half-time of 107.21 minutes. Raw data gastric emptying half time of 75.15 minutes. Percent activity remaining in stomach: 1 hour 63 % (normal 37-90%) 2 hours: 24 % (normal 30-60%) 4 hours: 1 % (normal 0-10%) NM/Gastric Emptying Study - 4 HR IMPRESSION: Normal solid phase gastric emptying. Reading Location: [id number]
== END | disposition home or self-care (01) ==
LOC: NM 07:41
PROVIDERS: PCP Family Medicine; Referring Provider Nurse Practitioner Acute Care; Visit Provider Nurse Practitioner Acute Care
DX: R11.0 Nausea (principal); R10.13 Epigastric pain
CPT/HCPCS: 78264; A9541

== ENCOUNTER 2025-04-18 09:57 | Outpatient (CLI) | payer MEDICARE, OTHER, SELFPAY ==
[2025-04-18 10:03] VITALS: BP 115/77; PULSE 57; RESP 16; TEMP 36.1; O2SAT 100; BMI 21.6
[2025-04-18] MEDS: DENOSUMAB 60 MG/ML SC (10:05)
== END 2025-04-18 23:59 | disposition home or self-care (01) ==
LOC: MEDOUTP 09:57
PROVIDERS: PCP Family Medicine; Referring Provider Family Medicine; Visit Provider Family Medicine
DX: M81.0 Age-related osteoporosis without current pathological fracture (principal)
CPT/HCPCS: 96372; J0897

== ENCOUNTER → 2025-04-24 | Outpatient (CLI) | payer MEDICARE, OTHER, SELFPAY ==
[2025-04-24 15:46] LABS: Hematocrit 39.1 % (37-47); Hemoglobin 12.8 g/dL (12.0-15.0); Immature Granulocytes Count 0.020 X10^3/uL (0.0-0.0); Mean Corp Hgb Conc 32.7 g/dL (32-36); Mean Corpuscular Volume 94.4 fL (81-99); Mean Platelet Vol. 10.2 fl (6.2-12.0); NRBC Flagged by Analyzer 0 % (0-5); Platelet Count 242 K/mm3 (150-450); RBC Distribution Width CV 13.2 % (11.6-14.6); RBC Distribution Width SD 44.9 fl (35.1-43.9); Red Blood Count 4.14 M/mm3 (4.2-5.4); White Blood Count 6.5 K/mm3 (4.4-11.0)
[2025-04-24 19:13] LABS: AST(SGOT) 24 U/L (<=31); Alanine Aminotransfer ALT/SGPT 16 U/L (<=34); Albumin, Serum 4.0 g/dL (3.4-4.8); Alkaline Phosphatase 75 U/L (35-104); Anion Gap 10 (5-15); BUN 18 mg/dL (4-19); BUN/Creat Ratio 23.4 RATIO (10-20); CRP 3.29 mg/L (0.0-3.0); Calcium,Total 9.4 mg/dL (7.6-11.0); Carbon Dioxide 25.0 mmol/L (21.0-32.0); Chloride 105 mmol/L (98-108); Globulin 2.6 g/dL (2.2-4.2); Glucose 83 mg/dL (70-99); Potassium 4.4 mmol/L (3.3-5.1)
[2025-04-24 19:36] LABS: Free T3 2.9 pg/mL (2.18-3.98)
[2025-04-26 04:07] LABS: Carcinoembryonic Antigen 11.8 ng/mL (0.0-4.7)
== END | disposition home or self-care (01) ==
LOC: MTLAB 11:33
PROVIDERS: PCP Family Medicine; Referring Provider Family Medicine; Visit Provider Family Medicine
DX: E03.9 Hypothyroidism, unspecified (principal); R11.0 Nausea; R10.9 Unspecified abdominal pain; R74.8 Abnormal levels of other serum enzymes; Z51.81 Encounter for therapeutic drug level monitoring
CPT/HCPCS: 36415; 80053; 82378; 84439; 84443; 84481; 85025; 85652; 86140

== ENCOUNTER → 2025-05-15 | Outpatient (CLI) | payer MEDICARE, OTHER, SELFPAY ==
--- NOTE | 2025-05-15 16:39 | MRI_ITS ---
PROCEDURE: MRI/MRCP Abdomen without Contrast
== END | disposition home or self-care (01) ==
LOC: MRI 16:31
PROVIDERS: PCP Family Medicine; Referring Provider Nurse Practitioner Acute Care; Visit Provider Nurse Practitioner Acute Care
DX: R97.0 Elevated carcinoembryonic antigen [CEA] (principal); R11.0 Nausea; R10.13 Epigastric pain; Z85.118 Personal history of other malignant neoplasm of bronchus and lung
CPT/HCPCS: 74181